=== PATIENT | female | born 1960 | race Caucasian/White ===

== ENCOUNTER → 2016-11-22 | Outpatient (CLI) | payer MEDICARE, BC ==
--- NOTE | 2016-11-22 15:43 | REPMRS ---
Patient History The patient states she had a clinical breast exam in 11/2016. Family history of endometrial cancer in mother at age 50 or over. Digital Woman Screen Mammo: November 22, 2016 - Exam #: [id number] Bilateral CC and MLO view(s) were taken. Technologist: Kell Carter, Technologist Prior study comparison: October 28, 2015, right breast digital mammo diagnostic unilateral, performed at [facility]. October 25, 2015, digital woman screen mammo performed at [facility]. August 06, 2014, digital woman screen mammo performed at [facility]. FINDINGS: There are scattered fibroglandular densities. There is a moderate amount of residual fibroglandular tissue which is fairly symmetric. There is no interval development of dominant mass, architectural distortion, or clustered microcalcification typical of malignancy. There has been no change in the appearance of the mammogram from the prior studies. ASSESSMENT: BI-RADS/ACR category 1 mammogram. Negative. Recommendation Routine screening mammogram of both breasts in 1 year (for women over age 40). This mammogram was interpreted with the aid of an FDA-approved computer-aided dectection system. Electronically Signed By: Harman Gomez MD 11/22/16 [id number]
== END ==
LOC: M WHC 14:20
PROVIDERS: ATTEND Nurse Practitioner Family
DX: Z01.419 Encounter for gynecological examination (general) (routine) without abnormal findings (principal); Z12.31 Encounter for screening mammogram for malignant neoplasm of breast; R30.0 Dysuria; Z12.12 Encounter for screening for malignant neoplasm of rectum
CPT/HCPCS: 81002; 82270; 87086; G0101; G0202

== ENCOUNTER 2016-12-17 14:30 | Outpatient (RCR) | payer MEDICARE, BC | END 2016-12-21 | LOC: M PT 14:30 | PROVIDERS: ATTEND Psychiatry & Neurology Neurology | DX: Z51.89 Encounter for other specified aftercare (principal); G35 Multiple sclerosis; R26.2 Difficulty in walking, not elsewhere classified; M62.9 Disorder of muscle, unspecified | CPT/HCPCS: 97110; 97116; 97140; 97162; G8978; G8979 ==

== ENCOUNTER 2017-01-10 12:15 | Outpatient (RCR) | payer MEDICARE, BC | END 2017-01-20 | LOC: M PT 12:15 | PROVIDERS: ATTEND Psychiatry & Neurology Neurology | DX: Z51.89 Encounter for other specified aftercare (principal); R26.89 Other abnormalities of gait and mobility; G35 Multiple sclerosis ==

== ENCOUNTER 2017-01-28 10:00 | Outpatient (RCR) | payer MEDICARE, BC | END 2017-02-20 | LOC: M PT 10:00 | PROVIDERS: ATTEND Psychiatry & Neurology Neurology | DX: Z51.89 Encounter for other specified aftercare (principal); G35 Multiple sclerosis; R26.89 Other abnormalities of gait and mobility | CPT/HCPCS: 97110; 97116; G8978; G8979; G8980 ==

== ENCOUNTER → 2017-03-19 | Outpatient (REF) | payer MEDICARE, BC ==
[2017-03-20 15:14] LABS: CALCIUM OXALATE CRYSTALS LARGE
== END ==
LOC: M LABNEURO 17:38
PROVIDERS: ATTEND Psychiatry & Neurology Neurology
DX: N39.0 Urinary tract infection, site not specified (principal)

== ENCOUNTER → 2017-05-21 | Outpatient (REF) | payer MEDICARE, BC ==
[~2017-05-21] MED LIST: CRAN125T PO; FISH1000 PO; PROZ40CA PO; TIZA4CAP3 PO
== END ==
LOC: M LAB REF 21:14
PROVIDERS: ATTEND Physician Assistant
DX: N39.0 Urinary tract infection, site not specified (principal)

== ENCOUNTER → 2017-05-23 | Outpatient (REF) | payer MEDICARE, BC ==
[2017-05-23 20:11] LABS: ALBUMIN/GLOBULIN RATIO 1.54 (1.00-1.93); ALKALINE PHOSPHATASE 90 U/L (45-117); ALT/SGPT 28 U/L (12-78); ANION GAP 6 MEQ/L (8-16); AST/SGOT 18 U/L (15-37); BILIRUBIN,TOTAL 0.4 MG/DL (0.2-1.0); BLOOD UREA NITROGEN 15 MG/DL (7-18); CALCIUM LEVEL 8.5 MG/DL (8.5-10.1); CARBON DIOXIDE LEVEL 29 MEQ/L (21-32); CHLORIDE LEVEL 105 MEQ/L (98-107); CREATININE FOR GFR 0.63 MG/DL (0.55-1.02); GLOMERULAR FILTRATION RATE > 60.0 (>51); GLUCOSE, FASTING 80 MG/DL (70-105); POTASSIUM SERUM 4.7 MEQ/L (3.5-5.1); SODIUM LEVEL 140 MEQ/L (136-145); TOTAL PROTEIN 6.6 GM/DL (6.4-8.2)
[2017-05-23 20:24] LABS: BASO # 0.1 K/mm3 (0.0-0.2); BASO % 1.2 % (0.0-1.0); EOS # 0.1 K/mm3 (0.0-0.50); EOS % 1.9 % (0.0-3.0); LARGE UNSTAINED CELL # 0.1 K/mm3 (0.0-0.4); LARGE UNSTAINED CELL % 1.8 % (0.0-4.0); LYMPH % 16.3 % (24.0-44.0); MEAN CORPUSCULAR HEMOGLOBIN 31.2 pg (27.0-33.0); MEAN CORPUSCULAR HGB CONC 32.6 g/dl (32.0-36.5); MEAN CORPUSCULAR VOLUME 95.6 fl (80.0-96.0); MONO # 0.5 K/mm3 (0.0-0.8); MONO % 9.4 % (0.0-5.0); NEUTROPHILS # 3.7 K/mm3 (1.8-7.7); NEUTROPHILS % 69.4 % (36.0-66.0); PLATELET COUNT, AUTOMATED 333 k/mm3 (150-450); RED CELL DISTRIBUTION WIDTH 12.2 % (11.5-14.5); WHITE BLOOD COUNT 5.3 K/mm3 (4.0-10.0)
[2017-06-11 00:06] LABS: JCV ANTIBODY BY INHIBITION Negative (.)
== END ==
LOC: M LABNEURO 12:00
PROVIDERS: ATTEND Psychiatry & Neurology Neurology
DX: G35 Multiple sclerosis (principal); Z51.81 Encounter for therapeutic drug level monitoring; Z79.899 Other long term (current) drug therapy

== ENCOUNTER 2017-06-12 12:42 | Outpatient (CLI) | payer MEDICARE, BC ==
[~2017-06-12] VITALS: Ht 166.4 cm; Wt 61.8 kg
[2017-06-12] MEDS ORDERED: methylPREDNISolone 1,000 MG, VIAL MATE ADAPTER 1 EACH in D5W 250 ML IV ONE ×2 (13:00→13:30)
[2017-06-12] MEDS ORDERED: CRAN125T PO (13:15)
[2017-06-12] MEDS ORDERED: PROZ40CA PO (13:15)
[2017-06-12] MEDS ORDERED: TIZA4CAP3 PO (13:15)
[2017-06-12] MEDS ORDERED: FISH1000 PO (13:15)
== END 2017-06-12 14:55 | disposition home or self-care (01) ==
LOC: M INFU 12:42
PROVIDERS: ATTEND Psychiatry & Neurology Neurology
DX: G35 Multiple sclerosis (principal); F32.9 Major depressive disorder, single episode, unspecified; F41.9 Anxiety disorder, unspecified; Z79.899 Other long term (current) drug therapy; Z88.2 Allergy status to sulfonamides
CPT/HCPCS: 96365; J2930

== ENCOUNTER 2017-06-13 13:56 | Outpatient (CLI) | payer MEDICARE, BC ==
[~2017-06-13] VITALS: Ht 166.4 cm; Wt 61.4 kg
[2017-06-13] MEDS ORDERED: methylPREDNISolone 1,000 MG, VIAL MATE ADAPTER 1 EACH in D5W 250 ML IV ONE (14:30)
== END 2017-06-13 15:30 | disposition home or self-care (01) ==
LOC: M INFU 13:56
PROVIDERS: ATTEND Psychiatry & Neurology Neurology
DX: G35 Multiple sclerosis (principal); F32.9 Major depressive disorder, single episode, unspecified; F41.9 Anxiety disorder, unspecified; Z79.899 Other long term (current) drug therapy; Z88.3 Allergy status to other anti-infective agents
CPT/HCPCS: 96365; J2930

== ENCOUNTER 2017-06-14 13:55 | Outpatient (CLI) | payer MEDICARE, BC ==
[~2017-06-14] VITALS: Ht 166.4 cm; Wt 61.8 kg
[2017-06-14] MEDS ORDERED: methylPREDNISolone 1,000 MG, VIAL MATE ADAPTER 1 EACH in D5W 250 ML IV ONE (14:00)
== END 2017-06-14 15:40 | disposition home or self-care (01) ==
LOC: M INFU 13:55
PROVIDERS: ATTEND Psychiatry & Neurology Neurology
DX: G35 Multiple sclerosis (principal); Z79.899 Other long term (current) drug therapy; Z88.2 Allergy status to sulfonamides
CPT/HCPCS: 96365; J2930

== ENCOUNTER 2017-06-15 13:51 | Outpatient (CLI) | payer MEDICARE, BC ==
[~2017-06-15] VITALS: Ht 165.1 cm; Wt 62.3 kg
[2017-06-15 14:00] VITALS: BP 118/57
[2017-06-15] MEDS ORDERED: methylPREDNISolone 1,000 MG, VIAL MATE ADAPTER 1 EACH in D5W 250 ML IV ONE (14:30)
== END 2017-06-15 17:12 | disposition home or self-care (01) ==
LOC: M OPCLI4PV 13:51 → M MSPAV 13:54 → M OPCLI4PV 17:12
PROVIDERS: ATTEND Psychiatry & Neurology Neurology
DX: G35 Multiple sclerosis (principal); Z79.899 Other long term (current) drug therapy; Z88.2 Allergy status to sulfonamides
CPT/HCPCS: 96374; J2930

== ENCOUNTER 2017-06-16 12:50 | Outpatient (CLI) | payer MEDICARE, BC ==
[~2017-06-16] VITALS: Ht 165.1 cm; Wt 67.3 kg
[2017-06-16 13:14] VITALS: BP 111/57
[2017-06-16] MEDS ORDERED: methylPREDNISolone 1,000 MG, VIAL MATE ADAPTER 1 EACH in D5W 250 ML IV ONE (13:30)
== END 2017-06-16 14:45 | disposition home or self-care (01) ==
LOC: M OPCLI4PR 12:50 → M PED 12:54 → M OPCLI4PR 14:45
PROVIDERS: ATTEND Psychiatry & Neurology Neurology
DX: G35 Multiple sclerosis (principal); Z79.899 Other long term (current) drug therapy; Z88.2 Allergy status to sulfonamides
CPT/HCPCS: 96365; J2930

== ENCOUNTER → 2017-10-16 | Outpatient (CLI) | payer MEDICARE, OTHER | LOC: M RAD 13:08 | DX: M79.605 Pain in left leg (principal) | CPT/HCPCS: 93923 ==

== ENCOUNTER 2017-10-20 21:14 | Inpatient (IN) | payer MEDICARE, OTHER ==
[2017-10-20] MEDS: NS 1,000 ML IV (22:09)
[2017-10-20 22:19] LABS: BASO # 0.1 10^3/uL (0.0-0.2); EOS # 0.1 10^3/uL (0.0-0.50); HEMATOCRIT 39.5 % (36.0-47.0); HEMOGLOBIN 13.5 g/dl (12.0-16.0); IMMATURE GRANULOCYTE % 0.2 % (0-0); LYMPH # 0.5 10^3/uL (1.5-4.5); LYMPH % 9.5 % (24.0-44.0); MEAN CORPUSCULAR HEMOGLOBIN 31.4 pg (27.0-33.0); MEAN CORPUSCULAR HGB CONC 34.2 g/dl (32.0-36.5); MEAN CORPUSCULAR VOLUME 91.9 fl (80.0-96.0); MONO # 1.1 10^3/uL (0.0-0.8); MONO % 20.9 % (0.0-5.0); NEUTROPHILS # 3.4 10^3/uL (1.8-7.7); NEUTROPHILS % 67.4 % (36.0-66.0); PLATELET COUNT, AUTOMATED 272 10^3/uL (150-450); RED CELL DISTRIBUTION WIDTH 11.9 % (11.5-14.5)
[2017-10-20 22:34] LABS: ANION GAP 7 MEQ/L (8-16); BLOOD UREA NITROGEN 14 MG/DL (7-18); CALCIUM LEVEL 9.2 MG/DL (8.5-10.1); CARBON DIOXIDE LEVEL 29 MEQ/L (21-32); CHLORIDE LEVEL 103 MEQ/L (98-107); CREATININE FOR GFR 0.67 MG/DL (0.55-1.02); GLOMERULAR FILTRATION RATE > 60.0 (>51); GLUCOSE, FASTING 88 MG/DL (70-100); POTASSIUM SERUM 4.1 MEQ/L (3.5-5.1); SODIUM LEVEL 139 MEQ/L (136-145)
[2017-10-20 23:02] LABS: INFLUENZA A AMPLIFICATION NEGATIVE (NEGATIVE); INFLUENZA B AMPLIFICATION NEGATIVE (NEGATIVE)
[2017-10-20] MEDS ORDERED: ONDANSETRON 4MG/2ML VIAL (J2405) IV (23:30)
[2017-10-20 23:33] LABS: APPEARANCE, URINE CLEAR (CLEAR); BACTERIA, URINE AUTO NEGATIVE (NEGATIVE); BILIRUBIN, URINE AUTO NEGATIVE (NEGATIVE); BLOOD, URINE BLOOD 1+ (NEGATIVE); COLOR, URINE AMBER (YELLOW); GLUCOSE, URINE (UA) AUTO NEGATIVE (NEGATIVE); KETONE, URINE AUTO TRACE mg/dL (NEGATIVE); LEUKOCYTE ESTERASE, URINE AUTO NEGATIVE (NEGATIVE); NITRITE, URINE AUTO POSITIVE (NEGATIVE); PROTEIN, URINE AUTO NEGATIVE (NEGATIVE); RBC, URINE AUTO 3 /HPF (0-3); SPECIFIC GRAVITY URINE AUTO 1.005 (1.002-1.035); SQUAMOUS EPITHELIAL CELL UR AU 0 /HPF (0-6); WBC, URINE AUTO 1 /HPF (0-3)
[2017-10-21] MEDS: methylPREDNISolone 1,000 MG, VIAL MATE ADAPTER 1 EACH in D5W 250 ML IV ×2 (00:34→20:09)
[2017-10-21] MEDS: ACETAMINOPHEN TAB 650MG DOSE (2X325MG) PO ×2 (00:37→08:56)
[2017-10-21] MEDS: AUGMENTIN 875 MG TAB PO ×3 (00:53→20:09)
[2017-10-21] MEDS: NS 1,000 ML IV ×2 (02:12→03:14)
[2017-10-21 06:06] LABS: BASO % 0.7 % (0.0-1.0); HEMATOCRIT 36.5 % (36.0-47.0); HEMOGLOBIN 12.4 g/dl (12.0-16.0); IMMATURE GRANULOCYTE % 0.2 % (0-0); LYMPH # 0.6 10^3/uL (1.5-4.5); LYMPH % 13.3 % (24.0-44.0); MEAN CORPUSCULAR VOLUME 91.3 fl (80.0-96.0); MONO # 0.2 10^3/uL (0.0-0.8); MONO % 5.8 % (0.0-5.0); NEUTROPHILS # 3.3 10^3/uL (1.8-7.7); PLATELET COUNT, AUTOMATED 249 10^3/uL (150-450); RED CELL DISTRIBUTION WIDTH 11.9 % (11.5-14.5); WHITE BLOOD COUNT 4.1 10^3/uL (4.0-10.0)
[2017-10-21 06:36] LABS: ANION GAP 8 MEQ/L (8-16); BLOOD UREA NITROGEN 11 MG/DL (7-18); CALCIUM LEVEL 8.2 MG/DL (8.5-10.1); CARBON DIOXIDE LEVEL 23 MEQ/L (21-32); CHLORIDE LEVEL 111 MEQ/L (98-107); CREATININE FOR GFR 0.51 MG/DL (0.55-1.02); GLOMERULAR FILTRATION RATE > 60.0 (>51); GLUCOSE, FASTING 150 MG/DL (70-100); POTASSIUM SERUM 3.8 MEQ/L (3.5-5.1); SODIUM LEVEL 142 MEQ/L (136-145)
[2017-10-21] MEDS: OMEGA-3 1050MG CAPSULE PO (08:54)
[2017-10-21] MEDS: PARoxetine 20 MG TAB PO (08:54)
[2017-10-21] MEDS: tiZANidine 4 MG TAB PO ×3 (08:54→20:09)
[2017-10-21] MEDS: ENOXAPARIN 40 MG/0.4 ML SYRINGE (J1650) SC (08:54)
[2017-10-21] MEDS: VITAMIN D 1,000 INTERNATIONAL UNITS TABLET PO (08:54)
[2017-10-21] MEDS ORDERED: PROHANCE 279.3MG/ML 15ML VIAL (A9576) As Ordered (18:08)
[2017-10-22 06:17] LABS: HEMATOCRIT 35.7 % (36.0-47.0); HEMOGLOBIN 12.3 g/dl (12.0-16.0); IMMATURE GRANULOCYTE % 0.4 % (0-0); LYMPH # 0.6 10^3/uL (1.5-4.5); LYMPH % 8.8 % (24.0-44.0); MEAN CORPUSCULAR HEMOGLOBIN 30.9 pg (27.0-33.0); MEAN CORPUSCULAR HGB CONC 34.5 g/dl (32.0-36.5); MEAN CORPUSCULAR VOLUME 89.7 fl (80.0-96.0); MONO # 0.2 10^3/uL (0.0-0.8); NEUTROPHILS # 6.4 10^3/uL (1.8-7.7); NEUTROPHILS % 87.8 % (36.0-66.0); PLATELET COUNT, AUTOMATED 272 10^3/uL (150-450); RED BLOOD COUNT 3.98 10^6/uL (4.00-5.40); RED CELL DISTRIBUTION WIDTH 11.9 % (11.5-14.5); WHITE BLOOD COUNT 7.3 10^3/uL (4.0-10.0)
[2017-10-22 06:26] LABS: ANION GAP 8 MEQ/L (8-16); BLOOD UREA NITROGEN 9 MG/DL (7-18); CALCIUM LEVEL 8.8 MG/DL (8.5-10.1); CARBON DIOXIDE LEVEL 25 MEQ/L (21-32); CHLORIDE LEVEL 108 MEQ/L (98-107); CREATININE FOR GFR 0.52 MG/DL (0.55-1.30); GLOMERULAR FILTRATION RATE > 60.0 (>51); GLUCOSE, FASTING 147 MG/DL (70-100); POTASSIUM SERUM 3.7 MEQ/L (3.5-5.1); SODIUM LEVEL 141 MEQ/L (136-145)
[2017-10-22] MEDS: ENOXAPARIN 40 MG/0.4 ML SYRINGE (J1650) SC (08:50)
[2017-10-22] MEDS: VITAMIN D 1,000 INTERNATIONAL UNITS TABLET PO (08:50)
[2017-10-22] MEDS: OMEGA-3 1050MG CAPSULE PO (08:50)
[2017-10-22] MEDS: ACETAMINOPHEN TAB 650MG DOSE (2X325MG) PO ×2 (08:50→22:49)
[2017-10-22] MEDS: PARoxetine 20 MG TAB PO (08:50)
[2017-10-22] MEDS: tiZANidine 4 MG TAB PO ×3 (08:50→21:31)
[2017-10-22] MEDS: AUGMENTIN 875 MG TAB PO ×2 (08:51→21:31)
[2017-10-22] MEDS: TECFIDERA 240 MG PO (21:00)
[2017-10-22] MEDS: methylPREDNISolone 1,000 MG, VIAL MATE ADAPTER 1 EACH in D5W 250 ML IV (21:31)
[2017-10-23 06:08] LABS: HEMATOCRIT 35.6 % (36.0-47.0); HEMOGLOBIN 12.2 g/dl (12.0-16.0); IMMATURE GRANULOCYTE % 0.4 % (0-0); LYMPH # 0.6 10^3/uL (1.5-4.5); LYMPH % 8.5 % (24.0-44.0); MEAN CORPUSCULAR HEMOGLOBIN 31.4 pg (27.0-33.0); MEAN CORPUSCULAR HGB CONC 34.3 g/dl (32.0-36.5); MEAN CORPUSCULAR VOLUME 91.5 fl (80.0-96.0); MONO # 0.2 10^3/uL (0.0-0.8); MONO % 2.1 % (0.0-5.0); NEUTROPHILS # 6.4 10^3/uL (1.8-7.7); PLATELET COUNT, AUTOMATED 236 10^3/uL (150-450); RED BLOOD COUNT 3.89 10^6/uL (4.00-5.40); RED CELL DISTRIBUTION WIDTH 12.1 % (11.5-14.5); WHITE BLOOD COUNT 7.2 10^3/uL (4.0-10.0)
[2017-10-23 06:28] LABS: ANION GAP 9 MEQ/L (8-16); BLOOD UREA NITROGEN 13 MG/DL (7-18); CARBON DIOXIDE LEVEL 26 MEQ/L (21-32); CHLORIDE LEVEL 103 MEQ/L (98-107); CREATININE FOR GFR 0.58 MG/DL (0.55-1.30); GLOMERULAR FILTRATION RATE > 60.0 (>51); GLUCOSE, FASTING 142 MG/DL (70-100); POTASSIUM SERUM 3.8 MEQ/L (3.5-5.1); SODIUM LEVEL 138 MEQ/L (136-145)
[2017-10-23] MEDS: AUGMENTIN 875 MG TAB PO ×2 (09:38→20:40)
[2017-10-23] MEDS: tiZANidine 4 MG TAB PO ×3 (09:39→20:40)
[2017-10-23] MEDS: ENOXAPARIN 40 MG/0.4 ML SYRINGE (J1650) SC (09:39)
[2017-10-23] MEDS: TECFIDERA 240 MG PO ×2 (09:39→20:39)
[2017-10-23] MEDS: PARoxetine 20 MG TAB PO (09:39)
[2017-10-23] MEDS: OMEGA-3 1050MG CAPSULE PO (09:39)
[2017-10-23] MEDS: VITAMIN D 1,000 INTERNATIONAL UNITS TABLET PO (09:39)
[2017-10-23] MEDS: ACETAMINOPHEN TAB 650MG DOSE (2X325MG) PO ×2 (11:57→20:40)
[2017-10-23] MEDS: methylPREDNISolone 1,000 MG, VIAL MATE ADAPTER 1 EACH in D5W 250 ML IV (20:39)
[2017-10-24 05:57] LABS: HEMATOCRIT 35.6 % (36.0-47.0); HEMOGLOBIN 12.5 g/dl (12.0-16.0); IMMATURE GRANULOCYTE % 0.5 % (0-0); LYMPH # 0.6 10^3/uL (1.5-4.5); LYMPH % 9.1 % (24.0-44.0); MEAN CORPUSCULAR HEMOGLOBIN 31.6 pg (27.0-33.0); MEAN CORPUSCULAR HGB CONC 35.1 g/dl (32.0-36.5); MEAN CORPUSCULAR VOLUME 89.9 fl (80.0-96.0); MONO # 0.1 10^3/uL (0.0-0.8); MONO % 2.2 % (0.0-5.0); NEUTROPHILS # 5.5 10^3/uL (1.8-7.7); NEUTROPHILS % 88.2 % (36.0-66.0); PLATELET COUNT, AUTOMATED 266 10^3/uL (150-450); RED BLOOD COUNT 3.96 10^6/uL (4.00-5.40); WHITE BLOOD COUNT 6.3 10^3/uL (4.0-10.0)
[2017-10-24 06:20] LABS: ANION GAP 11 MEQ/L (8-16); BLOOD UREA NITROGEN 12 MG/DL (7-18); CALCIUM LEVEL 8.8 MG/DL (8.5-10.1); CARBON DIOXIDE LEVEL 25 MEQ/L (21-32); CHLORIDE LEVEL 100 MEQ/L (98-107); CREATININE FOR GFR 0.54 MG/DL (0.55-1.30); GLOMERULAR FILTRATION RATE > 60.0 (>51); GLUCOSE, FASTING 142 MG/DL (70-100); POTASSIUM SERUM 3.8 MEQ/L (3.5-5.1); SODIUM LEVEL 136 MEQ/L (136-145)
[2017-10-24] MEDS: ENOXAPARIN 40 MG/0.4 ML SYRINGE (J1650) SC (09:33)
[2017-10-24] MEDS: OMEGA-3 1050MG CAPSULE PO (09:33)
[2017-10-24] MEDS: ACETAMINOPHEN TAB 650MG DOSE (2X325MG) PO ×2 (09:33→21:25)
[2017-10-24] MEDS: TECFIDERA 240 MG PO ×2 (09:34→21:00)
[2017-10-24] MEDS: tiZANidine 4 MG TAB PO ×3 (09:34→21:25)
[2017-10-24] MEDS: VITAMIN D 1,000 INTERNATIONAL UNITS TABLET PO (09:34)
[2017-10-24] MEDS: AUGMENTIN 875 MG TAB PO ×2 (09:34→21:24)
[2017-10-24] MEDS: PARoxetine 20 MG TAB PO (09:34)
[2017-10-24] MEDS: methylPREDNISolone 1,000 MG, VIAL MATE ADAPTER 1 EACH in D5W 250 ML IV (21:24)
[2017-10-25 06:26] LABS: BASO % 0.2 % (0.0-1.0); HEMATOCRIT 36.8 % (36.0-47.0); HEMOGLOBIN 12.6 g/dl (12.0-16.0); IMMATURE GRANULOCYTE # 0.1 10^3/uL (0-0); IMMATURE GRANULOCYTE % 0.8 % (0-0); LYMPH # 0.5 10^3/uL (1.5-4.5); LYMPH % 7.7 % (24.0-44.0); MEAN CORPUSCULAR HGB CONC 34.2 g/dl (32.0-36.5); MEAN CORPUSCULAR VOLUME 90.6 fl (80.0-96.0); MONO # 0.2 10^3/uL (0.0-0.8); MONO % 2.5 % (0.0-5.0); NEUTROPHILS # 5.8 10^3/uL (1.8-7.7); NEUTROPHILS % 88.8 % (36.0-66.0); PLATELET COUNT, AUTOMATED 265 10^3/uL (150-450); RED BLOOD COUNT 4.06 10^6/uL (4.00-5.40); WHITE BLOOD COUNT 6.5 10^3/uL (4.0-10.0)
[2017-10-25 06:42] LABS: ANION GAP 10 MEQ/L (8-16); BLOOD UREA NITROGEN 14 MG/DL (7-18); CALCIUM LEVEL 8.3 MG/DL (8.5-10.1); CARBON DIOXIDE LEVEL 24 MEQ/L (21-32); CHLORIDE LEVEL 102 MEQ/L (98-107); CREATININE FOR GFR 0.65 MG/DL (0.55-1.30); GLOMERULAR FILTRATION RATE > 60.0 (>51); GLUCOSE, FASTING 152 MG/DL (70-100); POTASSIUM SERUM 3.8 MEQ/L (3.5-5.1); SODIUM LEVEL 136 MEQ/L (136-145)
[2017-10-25] MEDS: VITAMIN D 1,000 INTERNATIONAL UNITS TABLET PO (08:27)
[2017-10-25] MEDS: PARoxetine 20 MG TAB PO (08:27)
[2017-10-25] MEDS: tiZANidine 4 MG TAB PO (08:27)
[2017-10-25] MEDS: TECFIDERA 240 MG PO (08:27)
[2017-10-25] MEDS: OMEGA-3 1050MG CAPSULE PO (08:27)
[2017-10-25] MEDS: AUGMENTIN 875 MG TAB PO (08:27)
[2017-10-25] MEDS: predniSONE 20 MG TAB PO (08:28)
[2017-10-25] MEDS: ENOXAPARIN 40 MG/0.4 ML SYRINGE (J1650) SC (08:28)
== END 2017-10-25 12:18 | disposition home health service (06) | DRG 60 ==
LOC: M MSPAV 10-21 00:07 → M ED 21:14 → M ED INP 23:20
DX: G35 Multiple sclerosis (principal); J01.90 Acute sinusitis, unspecified; E55.9 Vitamin D deficiency, unspecified; F32.9 Major depressive disorder, single episode, unspecified; N31.9 Neuromuscular dysfunction of bladder, unspecified; Z79.899 Other long term (current) drug therapy; Z88.2 Allergy status to sulfonamides

== ENCOUNTER → 2017-11-08 | Outpatient (REF) | payer MEDICARE, OTHER ==
[2017-11-11 11:56] LABS: HEPATITIS B SURFACE ANTIGEN NEGATIVE (NEGATIVE)
[2017-11-14 00:06] LABS: HERPES ZOSTER, VARICELLA IgG 2553 index (Immune >165)
[2017-11-14 00:06] LABS: JC VIRUS DNA PCR WHOLE BLOOD Negative (Negative)
== END ==
LOC: M LAB REF 16:33
DX: G35 Multiple sclerosis (principal); Z51.81 Encounter for therapeutic drug level monitoring
CPT/HCPCS: 87340

== ENCOUNTER → 2018-06-27 | Outpatient (REF) | payer MEDICARE, OTHER ==
[2018-06-27 18:35] LABS: APPEARANCE, URINE CLEAR (CLEAR); BACTERIA, URINE AUTO 1+ (NEGATIVE); BILIRUBIN, URINE AUTO NEGATIVE (NEGATIVE); BLOOD, URINE BLOOD NEGATIVE (NEGATIVE); COLOR, URINE STRAW (YELLOW); GLUCOSE, URINE (UA) AUTO NEGATIVE (NEGATIVE); KETONE, URINE AUTO NEGATIVE (NEGATIVE); LEUKOCYTE ESTERASE, URINE AUTO NEGATIVE (NEGATIVE); MUCUS, URINE SMALL (NEGATIVE); NITRITE, URINE AUTO NEGATIVE (NEGATIVE); PROTEIN, URINE AUTO NEGATIVE (NEGATIVE); RBC, URINE AUTO 0 /HPF (0-3); SPECIFIC GRAVITY URINE AUTO 1.003 (1.002-1.035); SQUAMOUS EPITHELIAL CELL UR AU 1 /HPF (0-6); UROBILINOGEN, URINE AUTO 0.2 mg/dL (0.0-2.0); WBC, URINE AUTO 1 /HPF (0-3)
== END ==
LOC: M LAB REF 17:09
DX: N39.0 Urinary tract infection, site not specified (principal)
CPT/HCPCS: 81001

== ENCOUNTER 2018-08-27 16:23 | Emergency (ER) | payer MEDICARE, OTHER ==
[2018-08-27] MEDS: NS 1,000 ML IV (17:40)
[2018-08-27 17:49] LABS: BASO % 0.3 % (0.0-1.0); EOS # 0.1 10^3/uL (0.0-0.50); EOS % 0.9 % (0.0-3.0); HEMOGLOBIN 13.1 g/dl (12.0-15.5); IMMATURE GRANULOCYTE % 0.3 % (0-3.0); MEAN CORPUSCULAR HEMOGLOBIN 31.8 pg (27.0-33.0); MEAN CORPUSCULAR HGB CONC 34.5 g/dl (32.0-36.5); MEAN CORPUSCULAR VOLUME 92.2 fl (80.0-96.0); MONO # 0.6 10^3/uL (0.0-0.8); MONO % 5.3 % (0.0-5.0); NEUTROPHILS # 10.7 10^3/uL (1.8-7.7); NEUTROPHILS % 91.2 % (36.0-66.0); PLATELET COUNT, AUTOMATED 288 10^3/uL (150-450); RED BLOOD COUNT 4.12 10^6/uL (4.00-5.40); RED CELL DISTRIBUTION WIDTH 11.8 % (11.5-14.5); WHITE BLOOD COUNT 11.7 10^3/uL (4.0-10.0)
[2018-08-27 17:55] LABS: LYMPH # 0.2 10^3/uL (1.5-4.5); POSITIVE DIFF POS FLAG
[2018-08-27 18:10] LABS: ANION GAP 7 MEQ/L (8-16); BLOOD UREA NITROGEN 21 MG/DL (7-18); CARBON DIOXIDE LEVEL 28 MEQ/L (21-32); CHLORIDE LEVEL 102 MEQ/L (98-107); CPK CREATINE PHOSPHOKINASE 176 U/L (26-192); CREATININE FOR GFR 0.54 MG/DL (0.55-1.30); GLOMERULAR FILTRATION RATE > 60.0 (>51); GLUCOSE, FASTING 97 MG/DL (70-100); POTASSIUM SERUM 4.6 MEQ/L (3.5-5.1); SODIUM LEVEL 137 MEQ/L (136-145)
[2018-08-27 19:16] LABS: GLUCOSE, URINE (UA) MANUAL NEGATIVE (NEGATIVE); KETONE, URINE MANUAL 1+ mg/dL (NEGATIVE); PROTEIN, URINE MANUAL REFLEX NEGATIVE (NEGATIVE)
[2018-08-27 19:17] LABS: BILIRUBIN, URINE MANUAL NEGATIVE (NEGATIVE); BLOOD URINE MANUAL RFX NEGATIVE (NEGATIVE); MICROSCOPIC INDICATED? RFX YES (NO); NITRITE, URINE MANUAL RFX NEGATIVE (NEGATIVE); UROBILINOGEN, URINE MANUAL NORMAL (NORMAL)
[2018-08-27 19:18] LABS: BACTERIA, URINE LARGE AMOUNT; HYALINE CAST, URINE NONE SEEN /lpf (0-1); SQUAMOUS EPITHELIAL CELL URINE SMALL AMOUNT /hpf (SMALL AMT)
[2018-08-27 19:19] LABS: MICROSCOPIC EXAM UNSPUN
[2018-08-27] MEDS: ACETAMINOPHEN TAB 650MG DOSE (2X325MG) PO (20:48)
[2018-08-27] MEDS: NITROFURANTOIN (MACROBID) 100 MG CAP PO (20:48)
== END 2018-08-27 20:53 | disposition home or self-care (01) ==
LOC: M ED 16:23
DX: N39.0 Urinary tract infection, site not specified (principal); S40.021A Contusion of right upper arm, initial encounter; S40.811A Abrasion of right upper arm, initial encounter; W18.39XA Other fall on same level, initial encounter; Y92.018 Other place in single-family (private) house as the place of occurrence of the external cause; G35 Multiple sclerosis; N80.9 Endometriosis, unspecified; Z79.899 Other long term (current) drug therapy
CPT/HCPCS: 73060

== ENCOUNTER → 2018-10-15 | Outpatient (REF) | payer MEDICARE, OTHER ==
[~2018-10-15] MED LIST changes: +AMOX/K PO; +AMOX500C PO; +AMOX500T2 PO; +AMPICILLIN 250 MG PO; +ASPI81TAEC PO; +ATOR1TAB21 PO; +BACL10TA2 PO; +MACR100C43 PO; +NAPR-885 PO; +PARO40TA2 PO; +PRED10TA2 PO; +TECF240C PO; +TIZA-208 PO; +TIZA4CAP PO; -TIZA4CAP3 PO; +VITA100066 PO; +[UNRECOGNIZED DRUG - CODE] PO; +[UNRECOGNIZED DRUG - CODE] PO; +ampicillin PO
== END ==
LOC: M LAB REF 13:33
PROVIDERS: ATTEND Internal Medicine
DX: R31.9 Hematuria, unspecified (principal)

== ENCOUNTER 2018-10-27 18:13 | Inpatient (IN) | payer MEDICARE, OTHER ==
[~2018-10-27] VITALS: Ht 165.1 cm; Wt 61.0 kg
[~2018-10-27 18:13] MED LIST changes: -AMOX500C PO; -ASPI81TAEC PO; -ATOR1TAB21 PO; -BACL10TA2 PO; -NAPR-885 PO; -[UNRECOGNIZED DRUG - CODE] PO
[2018-10-27] MEDS ORDERED: dexameTHASONE 20 MG/5 ML VIAL (J1100) IV ONE (20:45)
[2018-10-27] MEDS ORDERED: IBUPROFEN 600 MG TAB PO ONE (21:45)
[2018-10-27 22:14] LABS: BASO # 0.1 10^3/uL (0.0-0.2); BASO % 0.7 % (0.0-1.0); EOS # 0.1 10^3/uL (0.0-0.50); EOS % 1.5 % (0.0-3.0); HEMOGLOBIN 13.5 g/dl (12.0-15.5); LYMPH # 0.4 10^3/uL (1.5-4.5); LYMPH % 4.9 % (24.0-44.0); MEAN CORPUSCULAR HEMOGLOBIN 31.6 pg (27.0-33.0); MEAN CORPUSCULAR HGB CONC 34.6 g/dl (32.0-36.5); MEAN CORPUSCULAR VOLUME 91.3 fl (80.0-96.0); MONO # 0.8 10^3/uL (0.0-0.8); MONO % 10.5 % (0.0-5.0); NEUTROPHILS # 6.1 10^3/uL (1.8-7.7); NEUTROPHILS % 82.3 % (36.0-66.0); PLATELET COUNT, AUTOMATED 295 10^3/uL (150-450); RED BLOOD COUNT 4.27 10^6/uL (4.00-5.40); WHITE BLOOD COUNT 7.4 10^3/uL (4.0-10.0)
[2018-10-27] MEDS ORDERED: AMOX500C PO (22:25)
[2018-10-27] MEDS ORDERED: FISH1000 PO (22:25)
[2018-10-27] MEDS ORDERED: [UNRECOGNIZED DRUG - CODE] PO (22:26)
[2018-10-27] MEDS ORDERED: NAPR-885 PO (22:26)
[2018-10-27 22:27] LABS: BLOOD UREA NITROGEN 9 MG/DL (7-18); CALCIUM LEVEL 8.7 MG/DL (8.5-10.1); CARBON DIOXIDE LEVEL 24 MEQ/L (21-32); CHLORIDE LEVEL 104 MEQ/L (98-107); CPK CREATINE PHOSPHOKINASE 48 U/L (26-192); CREATININE FOR GFR 0.44 MG/DL (0.55-1.30); GLOMERULAR FILTRATION RATE > 60.0 (>51); GLUCOSE, FASTING 92 MG/DL (70-100); MAGNESIUM LEVEL 1.9 MG/DL (1.8-2.4); SODIUM LEVEL 139 MEQ/L (136-145)
[2018-10-28] MEDS ORDERED: ONDANSETRON 4MG/2ML VIAL (J2405) IV PRN (03:45)
[2018-10-28] MEDS ORDERED: DEXTROSE 50% 50 ML SYRINGE IV PRN (04:00)
[2018-10-28] MEDS ORDERED: GLUCOSE 4 GM CHEW TABLET PO PRN (04:00)
[2018-10-28] MEDS ORDERED: GLUCAGON FOR INJ 1 MG VIAL (J1610) SC PRN (04:00)
[2018-10-28 05:26] VITALS: BP 115/57
[2018-10-28] MEDS: HEPARIN SOD (PORCINE) 5000 UNITS/ML VIAL SC SCH ×3 (05:37→21:27)
[2018-10-28] MEDS: HumaLOG INSULIN (NovoLOG) PER UNIT SC SCH ×3 (05:37→18:58)
[2018-10-28] MEDS: AMOXICILLIN 500 MG CAP PO SCH ×3 (05:37→21:26)
[2018-10-28] MEDS: ACETAMINOPHEN TAB 650MG DOSE (2X325MG) PO PRN ×2 (06:21→13:02)
[2018-10-28 06:37] LABS: APPEARANCE, URINE CLEAR (CLEAR); BACTERIA, URINE AUTO 1+ (NEGATIVE); BILIRUBIN, URINE AUTO NEGATIVE (NEGATIVE); BLOOD, URINE BLOOD 1+ (NEGATIVE); COLOR, URINE YELLOW (YELLOW); GLUCOSE, URINE (UA) AUTO NEGATIVE (NEGATIVE); KETONE, URINE AUTO 2+ mg/dL (NEGATIVE); LEUKOCYTE ESTERASE, URINE AUTO NEGATIVE (NEGATIVE); MUCUS, URINE SMALL (NEGATIVE); NITRITE, URINE AUTO NEGATIVE (NEGATIVE); PROTEIN, URINE AUTO NEGATIVE (NEGATIVE); RBC, URINE AUTO 6 /HPF (0-3); SPECIFIC GRAVITY URINE AUTO 1.014 (1.002-1.035); SQUAMOUS EPITHELIAL CELL UR AU 2 /HPF (0-6); UROBILINOGEN, URINE AUTO 0.2 mg/dL (0.0-2.0); WBC, URINE AUTO 2 /HPF (0-3)
--- NOTE | 2018-10-28 06:57 | HPE ---
DATE OF ADMISSION: 10/28/2018 CHIEF COMPLAINT: Worsening bilateral lower extremity numbness and paresthesias for the past 24 hours, left worse than right. HISTORY OF PRESENT ILLNESS: The patient is a 58-year-old female with multiple sclerosis (MS) diagnosed in 1998, neurogenic bladder, recurrent urinary tract infections, depression and muscle spasms who presented to the emergency room with a one day history of bilateral lower extremity weakness, worse on the left, numbness and paresthesias. She states that this started yesterday after she had a dental extraction and was placed on amoxicillin for infection. She denies any cough, chest pain, shortness of breath, abdominal pain, constipation, diarrhea or urinary symptoms. She does endorse a mild headache which she states has improved. PAST MEDICAL HISTORY: See history of present illness. PAST SURGICAL HISTORY: section. Hysterectomy. HOME MEDICATIONS: - amoxicillin for 10 days - vitamin D - Paxil - Tecfidera - tizanidine She follows with Dr. Romero. ALLERGIES: 1. SULFA antibiotics. SOCIAL HISTORY: Denies tobacco, alcohol or illicit drug use. FAMILY HISTORY: Noncontributory. REVIEW OF SYSTEMS: A 12 point review of systems was completed, all of which were negative except those listed in the history of present illness. VITAL SIGNS ON ADMISSION: Temperature 99.3, pulse of 97, respirations are 17, satting at 94% on room air, blood pressure 124/74. PHYSICAL EXAMINATION: GENERAL: She is well nourished, in no apparent distress. HEAD: Normocephalic, atraumatic. EYES: Extraocular movements are intact. Pupils equal, round, reactive to light. NECK: Supple. No jugular venous pressure (JVP). LUNGS: Clear to auscultation bilaterally. No crackles, wheezes, rales or rhonchi. CARDIOVASCULAR: Regular rate and rhythm. Normal S1 and S2. No murmurs, gallops, or rubs. ABDOMEN: Soft, nontender, nondistended. Positive bowel sounds. No rebound or guarding. EXTREMITIES: No pitting edema or calf tenderness. SKIN: Intact. No rashes, lesions or breakdowns. NEUROLOGICAL EXAM: Alert and oriented times three. Bilateral lower extremity weakness noted, left worse than right. Power diminished 3-4/5. Sensation appears to be intact to fine touch. LABS AND IMAGING COMPLETED IN THE EMERGENCY ROOM: White count of 7, hemoglobin and hematocrit of 13/39, platelet count of 295. Chemistry shows a BUN and creatinine of 9/0.44. No imaging was compelted. ASSESSMENT/PLAN: MS flare possibly secondary to dental infection, extraction. Will rule out an infectious source such as urinary tract infection. Will place the patient on Solu-Medrol 1 gram daily, stop after five days and then place on a by mouth taper once this is done. Neurology consult in the a.m. Will get MRI of the brain, MR of the lumbar spine. Will monitor for signs of steroid induced psychosis, steroid induced renal dysfunction while on high dose steroids. Insulin sliding scale while on high dose steroids. For the rest of her chronic medical conditions, will continue her vitamin D, Paxil, Tecfidera which is she is going to bring in. The patient needs to take her own medications. For spasms continue tizanidine. Supportive deep vein thrombosis (DVT) prophylaxis. Heparin subcu. Gastrointestinal (GI) prophylaxis. Protonix while on high dose steroids. Diet regular.
[2018-10-28 08:00] VITALS: BP 130/62
[2018-10-28] MEDS ORDERED: methylPREDNISolone 1,000 MG, VIAL MATE ADAPTER 1 EACH in D5W 250 ML IV SCH (09:00)
[2018-10-28] MEDS ORDERED: methylPREDNISolone INJ 125 MG/2 ML VIAL (J2930) IV SCH (09:00)
[2018-10-28] MEDS: tiZANidine 4 MG TAB PO PRN ×2 (09:19→21:30)
[2018-10-28] MEDS: VITAMIN D 1,000 INTERNATIONAL UNITS TABLET PO SCH (09:19)
[2018-10-28] MEDS: PANTOPRAZOLE 40MG TAB (PROTONIX) PO SCH (09:19)
[2018-10-28] MEDS ORDERED: PROHANCE 279.3MG/ML 15ML VIAL (A9576) As Ordered ONE (09:46)
--- NOTE | 2018-10-28 11:15 | REP ---
MR BRAIN WITHOUT AND WITH CONTRAST: HISTORY: Multiple sclerosis. CONTRAST: ProHance 12 mL. COMPARISON: 10/21/2017. Multiple areas of increased signal intensity on T2-weighted images are present in the periventricular and subcortical white matter. Additional areas of increased signal intensity are present in the corpus callosum , left middle cerebellar peduncle and medulla. The lesion seen in the left side of the amaury in the previous examination is not seen in the present examination. The remaining areas of abnormal signal intensity are unchanged. There are no new areas of abnormal signal intensity. There is no intraparenchymal hemorrhage, infarct, or midline shift. There is no abnormal enhancement. The ventricular system and cortical sulci are dilated consistent with mild volume loss. There is no extracerebral collection. A 4 mm mass is present in the pituitary gland. Mucosal thickening is present in the left maxillary sinus. IMPRESSION: 1. The above findings are consistent with multiple sclerosis. A previously seen lesion in the left amaury is not seen in the present examination. 2. There is a 4 mm mass in the pituitary gland. MRI of the pituitary gland without and with contrast is recommended for further evaluation. Electronically Signed by Luis Manuel Parham MD 10/28/2018 11:24 A
[2018-10-28] MEDS: methylPREDNISolone 1,000 MG, VIAL MATE ADAPTER 1 EACH in D5W 250 ML IV SCH (11:20)
[2018-10-28 12:00] VITALS: BP 140/52
--- NOTE | 2018-10-28 12:20 | REP ---
MR LUMBAR SPINE WITHOUT CONTRAST: HISTORY: Multiple sclerosis. Decreased signal intensity on T2-weighted images is present in the lumbar intervertebral discs. The L4-5 and L5-S1 intervertebral discs are decreased in height. These findings are consistent with disc degeneration. A small left paracentral disc protrusion is present at the L1-2 level. There is minimal compression of the thecal sac. The L1 nerves exit the neural foramina without compression. A diffuse disc bulge is present at the L2-3 level. There is minimal compression of the thecal sac. The L2 nerves exit the neural foramina without compression. A diffuse disc bulge and small right paracentral disc protrusion are present at the L3-4 level. There is minimal compression of the thecal sac. There is hypertrophy of the posterior articulating facets. The L3 nerves exit the neural foramina without compression. A diffuse disc bulge is present at the L4-5 level. There is minimal compression of the thecal sac. There is hypertrophy of the posterior articulating facets. The L4 nerves exit the neural foramina without compression. A diffuse disc bulge is present at the L5-S1 level. This abuts the thecal sac. There is hypertrophy of the posterior articulating facets. The L5 nerves exit the neural foramina without compression. The conus medullaris is normal in appearance terminating at the level of the L1-2 intervertebral disc. A hemangioma is present in the L1 vertebral body. Normal signal intensity is present in the remaining lumbar vertebral bodies. IMPRESSION: 1. Small left paracentral disc protrusion at the L1-2 level with minimal thecal sac compression. 2. Diffuse disc bulges at the L2-3 and L4-5 levels with minimal thecal sac compression. 3. Diffuse disc bulge and small right paracentral disc protrusion at the L3-4 level with minimal thecal sac compression. 4. Diffuse disc bulge at the L5-S1 level. This abuts the thecal sac. Electronically Signed by Luis Manuel Parham MD 10/28/2018 12:23 P
[2018-10-28 14:00] VITALS: BP 140/52
--- NOTE | 2018-10-28 16:25 | REP ---
Bilateral lower extremity arterial Doppler ultrasound: History: Rule out peripheral vascular disease. Findings: Ankle brachial indices are normal at 1.2 on the right and 1.1 on the left. Minimal atherosclerotic disease is seen. Mild stenosis is suspected in the proximal anterior tibial artery on the left. Otherwise normal waveforms and velocities. Right lower extremity arterial Doppler velocity chart: Right CF A 129 cm/S Profunda 78 cm/S Proximal SFA 145 cm/S Mid SFA 166 cm/S Distal SFA 123 cm/S Popliteal 111 cm/S Proximal AT A 71 cm/S Tibioperoneal trunk 142 cm/S Proximal BINDERY SUPERVISOR 116 cm/S Distal BINDERY SUPERVISOR 97 cm/S Distal AT A 95 cm/S Left lower extremity arterial Doppler velocity chart: Left CF A 155 cm/S Profunda 83 cm/S Proximal SFA 136 cm/S Mid SFA 137 cm/S Distal SFA 91 cm/S Popliteal 67 cm/S Proximal AT A 17 cm/S Tibioperoneal trunk 101 cm/S Proximal BINDERY SUPERVISOR 57 cm/S Distal BINDERY SUPERVISOR 63 cm/S Distal AT A 64 cm/S Electronically Signed by Jesse Gomez MD 10/28/2018 04:16 P
[2018-10-28 19:00] VITALS: BP 127/60
[2018-10-28] MEDS: OMEGA-3 1000MG CAPSULE PO SCH (21:26)
[2018-10-28] MEDS: PARoxetine 20 MG TAB PO SCH (21:26)
[2018-10-29] VITALS: BP 123/58
[2018-10-29] MEDS: HumaLOG INSULIN (NovoLOG) PER UNIT SC SCH ×5 (00:26→23:53)
[2018-10-29] MEDS: AMOXICILLIN 500 MG CAP PO SCH ×3 (05:40→21:11)
[2018-10-29] MEDS: ACETAMINOPHEN TAB 650MG DOSE (2X325MG) PO PRN (05:40)
[2018-10-29] MEDS: HEPARIN SOD (PORCINE) 5000 UNITS/ML VIAL SC SCH ×3 (05:41→21:11)
[2018-10-29 06:12] LABS: HEMATOCRIT 37.6 % (36.0-47.0); HEMOGLOBIN 12.9 g/dl (12.0-15.5); MEAN CORPUSCULAR HEMOGLOBIN 31.6 pg (27.0-33.0); MEAN CORPUSCULAR HGB CONC 34.3 g/dl (32.0-36.5); MEAN CORPUSCULAR VOLUME 92.2 fl (80.0-96.0); PLATELET COUNT, AUTOMATED 310 10^3/uL (150-450); RED BLOOD COUNT 4.08 10^6/uL (4.00-5.40)
[2018-10-29 06:43] LABS: BLOOD UREA NITROGEN 17 MG/DL (7-18); CALCIUM LEVEL 9.5 MG/DL (8.5-10.1); CARBON DIOXIDE LEVEL 25 MEQ/L (21-32); CHLORIDE LEVEL 106 MEQ/L (98-107); CREATININE FOR GFR 0.55 MG/DL (0.55-1.30); GLOMERULAR FILTRATION RATE > 60.0 (>51); GLUCOSE, FASTING 122 MG/DL (70-100); POTASSIUM SERUM 4.2 MEQ/L (3.5-5.1); SODIUM LEVEL 141 MEQ/L (136-145)
--- NOTE | 2018-10-29 06:58 | CR ---
DATE OF CONSULTATION: 10/28/2018 REFERRING PHYSICIAN: Dr. Greg Lama REASON FOR CONSULTATION: Bilateral leg numbness and weakness. HISTORY OF PRESENT ILLNESS: Patient is a 58-year-old woman with secondary progressive multiple sclerosis, neurogenic bladder, recurrent urinary tract infection, who presented to [facility] due to worsening of left more than right leg numbness, weakness and spasticity. The patient had infected tube removed yesterday and 3 hours later felt her legs were getting worse. She feels stiffness in her legs. She was given Solu-Medrol today and feels that her legs are getting better. The patient has a history of multiple sclerosis for 20 years. She was on Rebif, Copaxone and later Tysabri. She states that none of these medications helped her. She has been taking Tecfidera most recently. She started using a cane in 2011. She started using a walker in 2013 and then a wheelchair off and on in 2016. Her left leg has always been worse than right leg. She sometimes has urinary incontinence and urgency. Her arms are better than legs. She denies dysphagia, dysarthria, diplopia, urinary continence, loss of consciousness. She has off and on headaches and back pain. PAST MEDICAL HISTORY: Secondary progressive multiple sclerosis. Depression. Neurogenic bladder. Hysterectomy. section. HOME MEDICATIONS: - amoxicillin for 10 days - Tecfidera 240 mg by mouth twice a day - tizanidine - Paxil - vitamin D ALLERGIES: 1. SULFA. SOCIAL HISTORY: She denies smoking, alcohol or illicit drugs. FAMILY HISTORY: Noncontributory. REVIEW OF SYSTEMS: All systems were reviewed and found to be noncontributory except as mentioned in history of present illness. PHYSICAL EXAMINATION: Temperature 97.6, pulse 85, respiratory rate 20, blood pressure 127/60, 97% saturation on room air. Heart: Regular rate and rhythm. Lungs: Clear to auscultation. Abdomen: Soft, nontender, nondistended. No pedal edema. No musculoskeletal abnormalities. No rash. No signs of meningeal irritation. No dysmetria or tremor. Patient is awake, alert, oriented to place, person and time. Normal speech comprehension and repetition. Extraocular muscles are intact. No facial weakness. Tongue and uvula are midline. Recent and distant memory is intact. Visual sandoval are full to confrontation. 5/5 strength in bilateral upper extremities. Strength in her left lower extremity is 3-/5 throughout. Strength in her right lower extremity is 4/5 throughout. She has decreased cold pin prick, vibration, sensation in her legs. Deep tendon flexes 3+ throughout. Plantar's are upgoing. Her gait is unsteady. She needs assistance to stand up from chair. DIAGNOSTIC STUDIES: Her MRI scan of brain was reviewed and showed multiple white matter T2 lesions in the periventricular, corpus callosum, cerebellar and brainstem lesions without contrast enhancement. MRI brain also showed a possible 4 mm pituitary gland nodule. MRI lumbosacral spine showed multilevel degenerative disk disease of lumbar spine. CBC and metabolic profile were within normal limits. Urinalysis showed 2 WBCs and 1+ bacteria. ASSESSMENT: 1. Secondary progressive multiple sclerosis. 2. Gait difficulty and neurogenic bladder related to above. 3. Possible 4 mm pituitary nodule. 4. Multilevel lumbosacral spondylosis and degenerative disk disease. PLAN: 1. Check vitamin B12, vitamin B1, serum copper etc. 2. Solu-Medrol 1000 mg IV daily for 5 days. 3. Physical and occupational therapy. 4. The patient should be considered for inpatient rehabilitation. 5. MRI scan of pituitary gland with and without contrast. 6. Follow-up with our office in 2-4 weeks after hospital and discharge from rehabilitation.
[2018-10-29 08:00] VITALS: BP 138/80
[2018-10-29] MEDS: PANTOPRAZOLE 40MG TAB (PROTONIX) PO SCH (08:17)
[2018-10-29] MEDS: tiZANidine 4 MG TAB PO PRN ×2 (08:17→15:07)
[2018-10-29] MEDS: VITAMIN D 1,000 INTERNATIONAL UNITS TABLET PO SCH (08:17)
[2018-10-29] MEDS ORDERED: PROHANCE 279.3MG/ML 15ML VIAL (A9576) As Ordered ONE (08:37)
[2018-10-29] MEDS: methylPREDNISolone 1,000 MG, VIAL MATE ADAPTER 1 EACH in D5W 250 ML IV SCH (09:36)
--- NOTE | 2018-10-29 09:44 | REP ---
MR PITUITARY WITHOUT AND WITH CONTRAST: HISTORY: Pituitary tumor. CONTRAST: ProHance 12 mL. COMPARISON: MR 10/28/2018. A 4 mm focus of isointense signal intensity on T1 and T2-weighted images is present superior to and contiguous with the pituitary gland. This is hypointense on contrast enhanced images. 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 The pituitary gland is normal in size measuring 5 mm in height. The infundibulum is midline. The cavernous sinuses, optic chiasm and hypothalamus are normal in appearance. 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 Electronically Signed by Luis Manuel Parham MD 10/29/2018 09:48 A
[2018-10-29 12:00] VITALS: BP 120/57
--- NOTE | 2018-10-29 14:55 | IPNPDOC ---
Text Note Date of Service The patient was seen on 10/29/18. NOTE Subjective: She states she is gaining more strength in the lower extremities. Denies any weakness. Otherwise feels well. Objective: Vitals: (see below) General: No acute distress, laying comfortably in bed. HEENT: Moist mucous membranes. Neck: No JVD or lymphadenopathy Cardiac: RRR, No murmurs Pulm: Clear to auscultation b/l. No wheezing, rhonchi Abd: NT/ND + BS Ext: No edema or cyanosis Neuro: Strength 5/5 BUE and 4-5/5 RLE, 3-4/5 LLE. CN 2-12 intact. F to N intact Negative pronator drift. Labs (see below) Images: MRI brain on 10/28/18 IMPRESSION: 1. The above findings are consistent with multiple sclerosis. A previously seen lesion in the left maaury is not seen in the present examination. 2. There is a 4 mm mass in the pituitary gland. MRI of the pituitary gland without and with contrast is recommended for further evaluation. MRI L spine on 10/28/18 IMPRESSION: 1. Small left paracentral disc protrusion at the L1-2 level with minimal thecal sac compression. 2. Diffuse disc bulges at the L2-3 and L4-5 levels with minimal thecal sac compression. 3. Diffuse disc bulge and small right paracentral disc protrusion at the L3-4 level with minimal thecal sac compression. 4. Diffuse disc bulge at the L5-S1 level. This abuts the thecal sac. MRI Pituitary 10/29/18 Rathke's cleft cyst arterial u/s LE 10/28/18 Findings: Ankle brachial indices are normal at 1.2 on the right and 1.1 on the left. Minimal atherosclerotic disease is seen. Mild stenosis is suspected in the proximal anterior tibial artery on the left. Otherwise normal waveforms and velocities. Assessment/Plan 1. Multiple sclerosis exacerbation- patient with progressive multiple sclerosis. On Solu-Medrol IV 5 days. Protonix. Appreciate neurology input. Will need close outpatient follow-up. PT/OT ordered. Strength improving. 2. Recent dental extraction will continue antibiotics. Afebrile. improving. 3. History of neurogenic bladder secondary to MS 4. History of depression continue meds 5. Mild PAD- will need close outpt f/u with Dr. Slater. She has seen him in the past. DVT prophy: Heparin subcutaneous PT/OT. ? ARU after steroids are complete. VS,Fishbone, I+O VS, Fishbone, I+O Laboratory Tests 10/29/18 05:23 Red Blood Count 4.08, Mean Corpuscular Volume 92.2, Mean Corpuscular Hemoglobin 31.6, Mean Corpuscular Hemoglobin Concent 34.3, Red Cell Distribution Width 11.6, Calcium Level 9.5 Vital Signs Date Time Temp Pulse Resp B/P (MAP) Pulse Ox O2 Delivery O2 Flow Rate FiO2 10/29/18 12:00 99.1 74 18 120/57 (78) 95 10/28/18 05:07 Room Air I&O- Last 24 Hours up to 6 AM 10/29/18 06:00 Intake Total 1666 ml Output Total 1800 ml Balance -134 ml FIDEL SOUZA MD Oct 29, 2018 14:55
[2018-10-29] MEDS: BACLOFEN 5MG PER 1/2 TABLET PO SCH ×2 (18:54→21:10)
[2018-10-29 20:00] VITALS: BP 130/71
[2018-10-29] MEDS: PARoxetine 20 MG TAB PO SCH (21:10)
[2018-10-29] MEDS: OMEGA-3 1000MG CAPSULE PO SCH (21:11)
[2018-10-30 04:00] VITALS: BP 114/65
[2018-10-30 05:36] LABS: HEMATOCRIT 36.7 % (36.0-47.0); HEMOGLOBIN 12.6 g/dl (12.0-15.5); MEAN CORPUSCULAR HEMOGLOBIN 31.7 pg (27.0-33.0); MEAN CORPUSCULAR HGB CONC 34.3 g/dl (32.0-36.5); MEAN CORPUSCULAR VOLUME 92.4 fl (80.0-96.0); PLATELET COUNT, AUTOMATED 273 10^3/uL (150-450); RED BLOOD COUNT 3.97 10^6/uL (4.00-5.40); WHITE BLOOD COUNT 10.3 10^3/uL (4.0-10.0)
[2018-10-30] MEDS: HumaLOG INSULIN (NovoLOG) PER UNIT SC SCH ×3 (05:50→18:06)
[2018-10-30 05:51] LABS: BLOOD UREA NITROGEN 17 MG/DL (7-18); CALCIUM LEVEL 9.1 MG/DL (8.5-10.1); CARBON DIOXIDE LEVEL 26 MEQ/L (21-32); CHLORIDE LEVEL 108 MEQ/L (98-107); CREATININE FOR GFR 0.53 MG/DL (0.55-1.30); GLOMERULAR FILTRATION RATE > 60.0 (>51); GLUCOSE, FASTING 116 MG/DL (70-100); POTASSIUM SERUM 3.9 MEQ/L (3.5-5.1); SODIUM LEVEL 141 MEQ/L (136-145)
[2018-10-30] MEDS: AMOXICILLIN 500 MG CAP PO SCH ×3 (05:51→21:16)
[2018-10-30] MEDS: HEPARIN SOD (PORCINE) 5000 UNITS/ML VIAL SC SCH ×3 (05:51→21:16)
[2018-10-30 08:00] VITALS: BP 132/64
[2018-10-30] MEDS: methylPREDNISolone 1,000 MG, VIAL MATE ADAPTER 1 EACH in D5W 250 ML IV SCH (09:01)
[2018-10-30] MEDS: VITAMIN D 1,000 INTERNATIONAL UNITS TABLET PO SCH (09:02)
[2018-10-30] MEDS: PANTOPRAZOLE 40MG TAB (PROTONIX) PO SCH (09:02)
[2018-10-30] MEDS: BACLOFEN 5MG PER 1/2 TABLET PO SCH ×3 (09:02→20:11)
[2018-10-30] MEDS ORDERED: SLF 3 ML SYR IV PRN (09:30)
[2018-10-30 12:15] VITALS: BP 153/73
[2018-10-30 14:00] VITALS: BP 138/70
--- NOTE | 2018-10-30 14:26 | IPNPDOC ---
Text Note Date of Service The patient was seen on 10/30/18. NOTE Subjective: Strength improving. Denies chest pain or palpitations. Ambulating with physical therapy. Objective: Vitals: (see below) General: No acute distress, laying comfortably in bed. HEENT: Moist mucous membranes. Neck: No JVD or lymphadenopathy Cardiac: RRR, No murmurs Pulm: Clear to auscultation b/l. No wheezing, rhonchi Abd: NT/ND + BS Ext: No edema or cyanosis Neuro: Strength 5/5 BUE and 4-5/5 RLE, 4/5 LLE. CN 2-12 intact. F to N intact Negative pronator drift. Labs (see below) Images: MRI brain on 10/28/18 IMPRESSION: 1. The above findings are consistent with multiple sclerosis. A previously seen lesion in the left amaury is not seen in the present examination. 2. There is a 4 mm mass in the pituitary gland. MRI of the pituitary gland without and with contrast is recommended for further evaluation. MRI L spine on 10/28/18 IMPRESSION: 1. Small left paracentral disc protrusion at the L1-2 level with minimal thecal sac compression. 2. Diffuse disc bulges at the L2-3 and L4-5 levels with minimal thecal sac compression. 3. Diffuse disc bulge and small right paracentral disc protrusion at the L3-4 level with minimal thecal sac compression. 4. Diffuse disc bulge at the L5-S1 level. This abuts the thecal sac. MRI Pituitary 10/29/18 Rathke's cleft cyst arterial u/s LE 10/28/18 Findings: Ankle brachial indices are normal at 1.2 on the right and 1.1 on the left. Minimal atherosclerotic disease is seen. Mild stenosis is suspected in the proximal anterior tibial artery on the left. Otherwise normal waveforms and velocities. Assessment/Plan 1. Multiple sclerosis exacerbation- patient with progressive multiple sclerosis. On Solu-Medrol IV 5 days. Protonix. Appreciate neurology input. Will need close outpatient follow-up. PT/OT ordered. Strength improving. 2. Recent dental extraction will continue antibiotics. Afebrile. improving. 3. History of neurogenic bladder secondary to MS 4. History of depression continue meds 5. Mild PAD- will need close outpt f/u with Dr. Slater. She has seen him in the past. DVT prophy: Heparin subcutaneous PT/OT. VS,Fishbone, I+O VS, Fishbone, I+O Laboratory Tests 10/30/18 05:07 Red Blood Count 3.97 L, Mean Corpuscular Volume 92.4, Mean Corpuscular Hemoglobin 31.7, Mean Corpuscular Hemoglobin Concent 34.3, Red Cell Distribution Width 11.8, Calcium Level 9.1 Vital Signs Date Time Temp Pulse Resp B/P (MAP) Pulse Ox O2 Delivery O2 Flow Rate FiO2 10/30/18 12:15 98.6 66 17 153/73 (99) 96 10/28/18 05:07 Room Air I&O- Last 24 Hours up to 6 AM 10/30/18 06:00 Intake Total 1466 ml Output Total 200 ml Balance 1266 ml FIDEL SOUZA MD Oct 30, 2018 14:26
[2018-10-30] MEDS: SLF 3 ML SYR IV SCH ×2 (14:38→21:17)
[2018-10-30] MEDS: OMEGA-3 1000MG CAPSULE PO SCH (20:11)
[2018-10-30] MEDS: PARoxetine 20 MG TAB PO SCH (20:11)
[2018-10-30 20:28] VITALS: BP 120/60
[2018-10-30] MEDS: TECFIDERA 240 MG PO SCH (22:55)
[2018-10-31 04:14] VITALS: BP 128/61
[2018-10-31] MEDS: AMOXICILLIN 500 MG CAP PO SCH ×3 (05:35→21:11)
[2018-10-31] MEDS: HEPARIN SOD (PORCINE) 5000 UNITS/ML VIAL SC SCH ×3 (05:40→21:11)
[2018-10-31] MEDS: SLF 3 ML SYR IV SCH ×3 (05:42→21:13)
[2018-10-31] MEDS: HumaLOG INSULIN (NovoLOG) PER UNIT SC SCH ×4 (05:42→18:22)
[2018-10-31 07:00] LABS: HEMATOCRIT 35.1 % (36.0-47.0); HEMOGLOBIN 12.1 g/dl (12.0-15.5); MEAN CORPUSCULAR HEMOGLOBIN 31.8 pg (27.0-33.0); MEAN CORPUSCULAR HGB CONC 34.5 g/dl (32.0-36.5); MEAN CORPUSCULAR VOLUME 92.4 fl (80.0-96.0); PLATELET COUNT, AUTOMATED 252 10^3/uL (150-450); WHITE BLOOD COUNT 7.4 10^3/uL (4.0-10.0)
[2018-10-31 07:21] LABS: BLOOD UREA NITROGEN 21 MG/DL (7-18); CARBON DIOXIDE LEVEL 26 MEQ/L (21-32); CHLORIDE LEVEL 104 MEQ/L (98-107); CREATININE FOR GFR 0.54 MG/DL (0.55-1.30); GLOMERULAR FILTRATION RATE > 60.0 (>51); GLUCOSE, FASTING 96 MG/DL (70-100); POTASSIUM SERUM 3.9 MEQ/L (3.5-5.1); SODIUM LEVEL 138 MEQ/L (136-145)
[2018-10-31 08:00] VITALS: BP 114/65
[2018-10-31] MEDS: TECFIDERA 240 MG PO SCH ×2 (09:00→21:12)
[2018-10-31] MEDS: VITAMIN D 1,000 INTERNATIONAL UNITS TABLET PO SCH (09:10)
[2018-10-31] MEDS: BACLOFEN 5MG PER 1/2 TABLET PO SCH ×3 (09:10→21:11)
[2018-10-31] MEDS: PANTOPRAZOLE 40MG TAB (PROTONIX) PO SCH (09:10)
[2018-10-31] MEDS: methylPREDNISolone 1,000 MG, VIAL MATE ADAPTER 1 EACH in D5W 250 ML IV SCH (09:11)
[2018-10-31 14:00] VITALS: BP 127/63
--- NOTE | 2018-10-31 17:06 | IPNPDOC ---
Text Note Date of Service The patient was seen on 10/31/18. NOTE Subjective: No acute changes overnight. Patient feels well. Objective: Vitals: (see below) General: No acute distress, laying comfortably in bed. HEENT: Moist mucous membranes. Neck: No JVD or lymphadenopathy Cardiac: RRR, No murmurs Pulm: Clear to auscultation b/l. No wheezing, rhonchi Abd: NT/ND + BS Ext: No edema or cyanosis Neuro: Strength 5/5 BUE and 4-5/5 RLE, 4/5 LLE. CN 2-12 intact. F to N intact Negative pronator drift. Labs (see below) Images: MRI brain on 10/28/18 IMPRESSION: 1. The above findings are consistent with multiple sclerosis. A previously se en lesion in the left amaury is not seen in the present examination. 2. There is a 4 mm mass in the pituitary gland. MRI of the pituitary gland without and with contrast is recommended for further evaluation. MRI L spine on 10/28/18 IMPRESSION: 1. Small left paracentral disc protrusion at the L1-2 level with minimal thecal sac compression. 2. Diffuse disc bulges at the L2-3 and L4-5 levels with minimal thecal sac compression. 3. Diffuse disc bulge and small right paracentral disc protrusion at the L3-4 level with minimal thecal sac compression. 4. Diffuse disc bulge at the L5-S1 level. This abuts the thecal sac. MRI Pituitary 10/29/18 Rathke's cleft cyst arterial u/s LE 10/28/18 Findings: Ankle brachial indices are normal at 1.2 on the right and 1.1 on the left. Minimal atherosclerotic disease is seen. Mild stenosis is suspected in the proximal anterior tibial artery on the left. Otherwise normal waveforms and velocities. Assessment/Plan 1. Multiple sclerosis exacerbation- patient with progressive multiple sclerosis. On Solu-Medrol IV 5 days. Protonix. Appreciate neurology input. Will need close outpatient follow-up. PT/OT ordered. Strength improving. 2. Recent dental extraction will continue antibiotics. Afebrile. improving. 3. History of neurogenic bladder secondary to MS 4. History of depression continue meds 5. Mild PAD- will need close outpt f/u with Dr. Slater. She has seen him in the past. DVT prophy: Heparin subcutaneous PT/OT. I have discussed case with Dr. Louise, who believes that the patient will benefit from inpatient acute rehabilitation unit. I have also spoken to Dr. Kuo who is glad to accept the patient on Saturday, as they are capped today. VS,Fishbone, I+O VS, Fishbone, I+O Laboratory Tests 10/31/18 06:34 Red Blood Count 3.80 L, Mean Corpuscular Volume 92.4, Mean Corpuscular Hemo globin 31.8, Mean Corpuscular Hemoglobin Concent 34.5, Red Cell Distribution Width 11.8, Calcium Level 9.0 Vital Signs Date Time Temp Pulse Resp B/P (MAP) Pulse Ox O2 Delivery O2 Flow Rate FiO2 10/31/18 14:00 97.8 60 17 127/63 (84) 93 10/28/18 05:07 Room Air I&O- Last 24 Hours up to 6 AM 10/31/18 06:00 Intake Total 2306 ml Output Total 625 ml Balance 1681 ml FIDEL SOUZA MD Oct 31, 2018 17:06
[2018-10-31] MEDS: ACETAMINOPHEN TAB 650MG DOSE (2X325MG) PO PRN (19:44)
[2018-10-31] MEDS: OMEGA-3 1000MG CAPSULE PO SCH (21:11)
[2018-10-31] MEDS: PARoxetine 20 MG TAB PO SCH (21:12)
[2018-10-31 22:00] VITALS: BP 134/64
[2018-11-01 06:00] VITALS: BP 148/72
[2018-11-01] MEDS: HumaLOG INSULIN (NovoLOG) PER UNIT SC SCH ×2 (06:00)
[2018-11-01] MEDS: AMOXICILLIN 500 MG CAP PO SCH ×3 (06:13→21:26)
[2018-11-01] MEDS: HEPARIN SOD (PORCINE) 5000 UNITS/ML VIAL SC SCH ×3 (06:14→21:26)
[2018-11-01] MEDS: SLF 3 ML SYR IV SCH ×3 (06:14→21:27)
[2018-11-01 07:10] LABS: HEMATOCRIT 35.3 % (36.0-47.0); HEMOGLOBIN 12.1 g/dl (12.0-15.5); MEAN CORPUSCULAR HEMOGLOBIN 31.6 pg (27.0-33.0); MEAN CORPUSCULAR HGB CONC 34.3 g/dl (32.0-36.5); MEAN CORPUSCULAR VOLUME 92.2 fl (80.0-96.0); PLATELET COUNT, AUTOMATED 266 10^3/uL (150-450); RED BLOOD COUNT 3.83 10^6/uL (4.00-5.40); WHITE BLOOD COUNT 6.5 10^3/uL (4.0-10.0)
[2018-11-01 07:32] LABS: BLOOD UREA NITROGEN 19 MG/DL (7-18); CALCIUM LEVEL 8.5 MG/DL (8.5-10.1); CARBON DIOXIDE LEVEL 24 MEQ/L (21-32); CHLORIDE LEVEL 104 MEQ/L (98-107); CREATININE FOR GFR 0.51 MG/DL (0.55-1.30); GLOMERULAR FILTRATION RATE > 60.0 (>51); GLUCOSE, FASTING 97 MG/DL (70-100); POTASSIUM SERUM 4.2 MEQ/L (3.5-5.1); SODIUM LEVEL 137 MEQ/L (136-145)
[2018-11-01] MEDS: BACLOFEN 5MG PER 1/2 TABLET PO SCH ×3 (08:31→21:26)
[2018-11-01] MEDS: PANTOPRAZOLE 40MG TAB (PROTONIX) PO SCH (08:31)
[2018-11-01] MEDS: VITAMIN D 1,000 INTERNATIONAL UNITS TABLET PO SCH (08:31)
[2018-11-01] MEDS: methylPREDNISolone 1,000 MG, VIAL MATE ADAPTER 1 EACH in D5W 250 ML IV SCH (08:31)
[2018-11-01] MEDS: TECFIDERA 240 MG PO SCH ×2 (08:32→21:26)
--- NOTE | 2018-11-01 12:27 | IPNPDOC ---
Text Note Date of Service The patient was seen on 11/01/18. NOTE Subjective: Pt states weakness is improving. Believes she would benefit from A RU. Objective: Vitals: (see below) General: No acute distress, laying comfortably in bed. HEENT: Moist mucous membranes. Neck: No JVD or lymphadenopathy Cardiac: RRR, No murmurs Pulm: Clear to auscultation b/l. No wheezing, rhonchi Abd: NT/ND + BS Ext: No edema or cyanosis Neuro: Strength 5/5 BUE and 4-5/5 RLE, 4/5 LLE. CN 2-12 intact. F to N intact Negative pronator drift. Labs (see below) Images: MRI brain on 10/28/18 IMPRESSION: 1. The above findings are consistent with multiple sclerosis. A previously seen lesion in the left amaury is not seen in the present examination. 2. There is a 4 mm mass in the pituitary gland. MRI of the pituitary gland without and with contrast is recommended for further evaluation. MRI L spine on 10/28/18 IMPRESSION: 1. Small left paracentral disc protrusion at the L1-2 level with minimal thecal sac compression. 2. Diffuse disc bulges at the L2-3 and L4-5 levels with minimal thecal sac compression. 3. Diffuse disc bulge and small right paracentral disc protrusion at the L3-4 level with minimal thecal sac compression. 4. Diffuse disc bulge at the L5-S1 level. This abuts the thecal sac. MRI Pituitary 10/29/18 Rathke's cleft cyst arterial u/s LE 10/28/18 Findings: Ankle brachial indices are normal at 1.2 on the right and 1.1 on the left. Minimal atherosclerotic disease is seen. Mild stenosis is suspected in the proximal anterior tibial artery on the left. Otherwise normal waveforms and velocities. Assessment/Plan 1. Multiple sclerosis exacerbation- patient with progressive multiple sclerosis. On Solu-Medrol IV, increased to 7 days per neuro. Protonix. Appreciate neurology input. Will need close outpatient follow-up. PT/OT ordered. Strength improving. 2. Recent dental extraction will continue antibiotics. Afebrile. improving. 3. History of neurogenic bladder secondary to MS 4. History of depression continue meds 5. Mild PAD- will need close outpt f/u with Dr. Slater. She has seen him in the past. DVT prophy: Heparin subcutaneous PT/OT. I have discussed case with Dr. Louise, who believes that the patient will benefit from inpatient acute rehabilitation unit. I have also spoken to Dr. Kuo who is glad to accept the patient on Saturday, as they are capped today. VS,Fishbone, I+O VS, Fishbone, I+O Laboratory Tests 11/01/18 06:50 Red Blood Count 3.83 L, Mean Corpuscular Volume 92.2, Mean Corpuscular Hemoglobin 31.6, Mean Corpuscular Hemoglobin Concent 34.3, Red Cell Distribution Width 11.7, Calcium Level 8.5 Vital Signs Date Time Temp Pulse Resp B/P (MAP) Pulse Ox O2 Delivery O2 Flow Rate FiO2 11/01/18 06:00 98.2 65 18 148/72 (97) 93 10/28/18 05:07 Room Air I&O- Last 24 Hours up to 6 AM 11/01/18 06:00 Intake Total 2560 ml Output Total 800 ml Balance 1760 ml FIDEL SOUZA MD Nov 01, 2018 12:27
[2018-11-01 14:00] VITALS: BP 121/57
[2018-11-01] MEDS: ACETAMINOPHEN TAB 650MG DOSE (2X325MG) PO PRN (18:01)
[2018-11-01] MEDS: OMEGA-3 1000MG CAPSULE PO SCH (21:26)
[2018-11-01] MEDS: PARoxetine 20 MG TAB PO SCH (21:26)
[2018-11-01 22:00] VITALS: BP 133/70
[2018-11-02 04:00] VITALS: BP 132/62
[2018-11-02] MEDS: ACETAMINOPHEN TAB 650MG DOSE (2X325MG) PO PRN ×2 (04:19→10:20)
[2018-11-02] MEDS: AMOXICILLIN 500 MG CAP PO SCH ×3 (05:17→22:00)
[2018-11-02] MEDS: HEPARIN SOD (PORCINE) 5000 UNITS/ML VIAL SC SCH ×3 (05:17→22:00)
[2018-11-02] MEDS: SLF 3 ML SYR IV SCH ×3 (05:17→22:00)
[2018-11-02 06:56] LABS: HEMATOCRIT 35.6 % (36.0-47.0); HEMOGLOBIN 12.2 g/dl (12.0-15.5); MEAN CORPUSCULAR HEMOGLOBIN 30.9 pg (27.0-33.0); MEAN CORPUSCULAR HGB CONC 34.3 g/dl (32.0-36.5); MEAN CORPUSCULAR VOLUME 90.1 fl (80.0-96.0); PLATELET COUNT, AUTOMATED 253 10^3/uL (150-450); RED BLOOD COUNT 3.95 10^6/uL (4.00-5.40); WHITE BLOOD COUNT 7.6 10^3/uL (4.0-10.0)
[2018-11-02 07:13] LABS: BLOOD UREA NITROGEN 20 MG/DL (7-18); CALCIUM LEVEL 8.4 MG/DL (8.5-10.1); CARBON DIOXIDE LEVEL 26 MEQ/L (21-32); CHLORIDE LEVEL 103 MEQ/L (98-107); CREATININE FOR GFR 0.51 MG/DL (0.55-1.30); GLOMERULAR FILTRATION RATE > 60.0 (>51); GLUCOSE, FASTING 108 MG/DL (70-100); SODIUM LEVEL 136 MEQ/L (136-145)
[2018-11-02] MEDS: TECFIDERA 240 MG PO SCH ×3 (08:25→21:59)
[2018-11-02] MEDS: PANTOPRAZOLE 40MG TAB (PROTONIX) PO SCH (08:26)
[2018-11-02] MEDS: VITAMIN D 1,000 INTERNATIONAL UNITS TABLET PO SCH (08:26)
[2018-11-02] MEDS: BACLOFEN 5MG PER 1/2 TABLET PO SCH ×3 (08:26→22:00)
[2018-11-02] MEDS ORDERED: methylPREDNISolone INJ 125 MG/2 ML VIAL (J2930) IV SCH (09:00)
[2018-11-02] MEDS: methylPREDNISolone 1,000 MG, VIAL MATE ADAPTER 1 EACH in D5W 250 ML IV SCH (09:20)
--- NOTE | 2018-11-02 10:24 | IPNPDOC ---
Text Note Date of Service The patient was seen on 11/02/18. NOTE Subjective: No acute changes overnight. No N/V/Abd pain. Objective: Vitals: (see below) General: No acute distress, laying comfortably in bed. HEENT: Moist mucous membranes. Neck: No JVD or lymphadenopathy Cardiac: RRR, No murmurs Pulm: Clear to auscultation b/l. No wheezing, rhonchi Abd: NT/ND + BS Ext: No edema or cyanosis Neuro: Strength 5/5 BUE and 4-5/5 RLE, 4/5 LLE. CN 2-12 intact. F to N intact Negative pronator drift. Labs (see below) Images: MRI brain on 10/28/18 IMPRESSION: 1. The above findings are consistent with multiple sclerosis. A previously see n lesion in the left amaury is not seen in the present examination. 2. There is a 4 mm mass in the pituitary gland. MRI of the pituitary gland without and with contrast is recommended for further evaluation. MRI L spine on 10/28/18 IMPRESSION: 1. Small left paracentral disc protrusion at the L1-2 level with minimal thecal sac compression. 2. Diffuse disc bulges at the L2-3 and L4-5 levels with minimal thecal sac compression. 3. Diffuse disc bulge and small right paracentral disc protrusion at the L3-4 level with minimal thecal sac compression. 4. Diffuse disc bulge at the L5-S1 level. This abuts the thecal sac. MRI Pituitary 10/29/18 Rathke's cleft cyst arterial u/s LE 10/28/18 Findings: Ankle brachial indices are normal at 1.2 on the right and 1.1 on the left. Minimal atherosclerotic disease is seen. Mild stenosis is suspected in the proximal anterior tibial artery on the left. Otherwise normal waveforms and velocities. Assessment/Plan 1. Multiple sclerosis exacerbation- patient with progressive multiple sclerosis. On Solu-Medrol IV, increased to 7 days per neuro. Protonix. Appreciate neurology input. Will need close outpatient follow-up. PT/OT ordered. Strength improving. 2. Recent dental extraction will continue antibiotics. Afebrile. improving. 3. History of neurogenic bladder secondary to MS 4. History of depression continue meds 5. Mild PAD- will need close outpt f/u with Dr. Slater. She has seen him in the past. DVT prophy: Heparin subcutaneous PT/OT. I have discussed case with Dr. Louise, who believes that the patient will benefit from inpatient acute rehabilitation unit. I have also spoken to Dr. Kuo who is glad to accept the patient on Saturday. VS,Fishbone, I+O VS, Fishbone, I+O Laboratory Tests 11/02/18 06:40 Red Blood Count 3.95 L, Mean Corpuscular Volume 90.1, Mean Corpuscular Hemoglo bin 30.9, Mean Corpuscular Hemoglobin Concent 34.3, Red Cell Distribution Width 11.4 L, Calcium Level 8.4 L Vital Signs Date Time Temp Pulse Resp B/P (MAP) Pulse Ox O2 Delivery O2 Flow Rate FiO2 11/02/18 04:00 98.2 50 16 132/62 (85) 97 10/28/18 05:07 Room Air I&O- Last 24 Hours up to 6 AM 11/02/18 06:00 Intake Total 1020 ml Output Total 900 ml Balance 120 ml FIDEL SOUZA MD Nov 02, 2018 10:24
[2018-11-02 14:00] VITALS: BP 104/55
[2018-11-02 21:00] VITALS: BP 120/58
[2018-11-02] MEDS: PARoxetine 20 MG TAB PO SCH (21:59)
[2018-11-02] MEDS: OMEGA-3 1000MG CAPSULE PO SCH (22:00)
[2018-11-03 00:07] LABS: VITAMIN B1 LEVEL WHOLE BLOOD 151.2 nmol/L (66.5-200.0)
[2018-11-03] MEDS: ACETAMINOPHEN TAB 650MG DOSE (2X325MG) PO PRN ×2 (01:04→15:00)
[2018-11-03] MEDS: SLF 3 ML SYR IV SCH ×3 (05:27→21:03)
[2018-11-03 06:30] LABS: HEMATOCRIT 37.1 % (36.0-47.0); HEMOGLOBIN 12.6 g/dl (12.0-15.5); MEAN CORPUSCULAR HEMOGLOBIN 31.7 pg (27.0-33.0); MEAN CORPUSCULAR VOLUME 93.2 fl (80.0-96.0); PLATELET COUNT, AUTOMATED 270 10^3/uL (150-450); RED BLOOD COUNT 3.98 10^6/uL (4.00-5.40); WHITE BLOOD COUNT 9.7 10^3/uL (4.0-10.0)
[2018-11-03] MEDS: AMOXICILLIN 500 MG CAP PO SCH ×3 (06:42→21:02)
[2018-11-03] MEDS: HEPARIN SOD (PORCINE) 5000 UNITS/ML VIAL SC SCH ×3 (06:42→21:03)
[2018-11-03 06:45] VITALS: BP 134/66
[2018-11-03 06:55] LABS: BLOOD UREA NITROGEN 15 MG/DL (7-18); CALCIUM LEVEL 8.8 MG/DL (8.5-10.1); CARBON DIOXIDE LEVEL 29 MEQ/L (21-32); CHLORIDE LEVEL 101 MEQ/L (98-107); CREATININE FOR GFR 0.64 MG/DL (0.55-1.30); GLOMERULAR FILTRATION RATE > 60.0 (>51); GLUCOSE, FASTING 114 MG/DL (70-100); POTASSIUM SERUM 4.6 MEQ/L (3.5-5.1); SODIUM LEVEL 135 MEQ/L (136-145)
[2018-11-03] MEDS: BACLOFEN 5MG PER 1/2 TABLET PO SCH ×3 (08:58→21:02)
[2018-11-03] MEDS: VITAMIN D 1,000 INTERNATIONAL UNITS TABLET PO SCH (08:58)
[2018-11-03] MEDS: PANTOPRAZOLE 40MG TAB (PROTONIX) PO SCH (08:58)
[2018-11-03] MEDS: TECFIDERA 240 MG PO SCH ×2 (09:00→21:00)
[2018-11-03] MEDS: methylPREDNISolone 1,000 MG, VIAL MATE ADAPTER 1 EACH in D5W 250 ML IV SCH (09:00)
[2018-11-03 14:00] VITALS: BP 108/51
--- NOTE | 2018-11-03 14:51 | IPNPDOC ---
Text Note Date of Service The patient was seen on 11/03/18. NOTE Subjective: No acute changes overnight. No N/V/Abd pain. Objective: Vitals: (see below) General: No acute distress, laying comfortably in bed. HEENT: Moist mucous membranes. Neck: No JVD or lymphadenopathy Cardiac: RRR, No murmurs Pulm: Clear to auscultation b/l. No wheezing, rhonchi Abd: NT/ND + BS Ext: No edema or cyanosis Neuro: Strength 5/5 BUE and 4-5/5 RLE, 4/5 LLE. CN 2-12 intact. F to N intact Negative pronator drift. Labs (see below) Images: MRI brain on 10/28/18 IMPRESSION: 1. The above findings are consistent with multiple sclerosis. A previously see n lesion in the left amaury is not seen in the present examination. 2. There is a 4 mm mass in the pituitary gland. MRI of the pituitary gland without and with contrast is recommended for further evaluation. MRI L spine on 10/28/18 IMPRESSION: 1. Small left paracentral disc protrusion at the L1-2 level with minimal thecal sac compression. 2. Diffuse disc bulges at the L2-3 and L4-5 levels with minimal thecal sac compression. 3. Diffuse disc bulge and small right paracentral disc protrusion at the L3-4 level with minimal thecal sac compression. 4. Diffuse disc bulge at the L5-S1 level. This abuts the thecal sac. MRI Pituitary 10/29/18 Rathke's cleft cyst arterial u/s LE 10/28/18 Findings: Ankle brachial indices are normal at 1.2 on the right and 1.1 on the left. Minimal atherosclerotic disease is seen. Mild stenosis is suspected in the proximal anterior tibial artery on the left. Otherwise normal waveforms and velocities. Assessment/Plan 1. Multiple sclerosis exacerbation- patient with progressive multiple sclerosis. s/p Solu-Medrol IV x6 days per neuro. Protonix. Appreciate neurology input. Will need close outpatient follow-up. PT/OT ordered. Strength improving. 2. Recent dental extraction will continue antibiotics. Afebrile. improving. 3. History of neurogenic bladder secondary to MS 4. History of depression continue meds 5. Mild PAD- will need close outpt f/u with Dr. Slater. She has seen him in the past. Started on statin/ASA [address] Slater as pt may have delayed d/c if she goes to ARU - he will see patient today. DVT prophy: Heparin subcutaneous PT/OT. Pending ARU bed. VS,Fishbone, I+O VS, Fishbone, I+O Laboratory Tests 11/03/18 06:13 Red Blood Count 3.98 L, Mean Corpuscular Volume 93.2, Mean Corpuscular Hemoglobin 31.7, Mean Corpuscular Hemoglobin Concent 34.0, Red Cell Distribution Width 11.6, Calcium Level 8.8 Vital Signs Date Time Temp Pulse Resp B/P (MAP) Pulse Ox O2 Delivery O2 Flow Rate FiO2 11/03/18 06:45 98.3 54 18 134/66 (88) 98 10/28/18 05:07 Room Air I&O- Last 24 Hours up to 6 AM 11/03/18 06:00 Intake Total 1640 ml Output Total 600 ml Balance 1040 ml FIDEL SOZUA MD Nov 03, 2018 14:51
[2018-11-03] MEDS ORDERED: ASPIRIN 81 MG ENTERIC TAB PO ONE (15:00)
[2018-11-03] MEDS ORDERED: ATORVASTATIN 20 MG TAB PO ONE (15:00)
[2018-11-03] MEDS: ATORVASTATIN 20 MG TAB PO SCH (15:01)
[2018-11-03] MEDS: ASPIRIN 81 MG ENTERIC TAB PO SCH (15:01)
[2018-11-03] MEDS: PARoxetine 20 MG TAB PO SCH (21:02)
[2018-11-03] MEDS: OMEGA-3 1000MG CAPSULE PO SCH (21:02)
[2018-11-03 22:00] VITALS: BP 90/49
[2018-11-04] MEDS: ACETAMINOPHEN TAB 650MG DOSE (2X325MG) PO PRN ×2 (01:58→21:45)
[2018-11-04 06:00] VITALS: BP 109/53
[2018-11-04] MEDS: HEPARIN SOD (PORCINE) 5000 UNITS/ML VIAL SC SCH ×3 (06:00→21:28)
[2018-11-04] MEDS: AMOXICILLIN 500 MG CAP PO SCH ×3 (06:00→21:28)
[2018-11-04] MEDS: SLF 3 ML SYR IV SCH ×3 (06:00→21:29)
[2018-11-04 07:30] LABS: HEMOGLOBIN 11.9 g/dl (12.0-15.5); MEAN CORPUSCULAR HEMOGLOBIN 31.6 pg (27.0-33.0); MEAN CORPUSCULAR VOLUME 92.8 fl (80.0-96.0); PLATELET COUNT, AUTOMATED 265 10^3/uL (150-450); RED BLOOD COUNT 3.77 10^6/uL (4.00-5.40); WHITE BLOOD COUNT 7.4 10^3/uL (4.0-10.0)
[2018-11-04 07:59] LABS: BLOOD UREA NITROGEN 19 MG/DL (7-18); CALCIUM LEVEL 8.2 MG/DL (8.5-10.1); CARBON DIOXIDE LEVEL 29 MEQ/L (21-32); CHLORIDE LEVEL 102 MEQ/L (98-107); CREATININE FOR GFR 0.66 MG/DL (0.55-1.30); GLOMERULAR FILTRATION RATE > 60.0 (>51); GLUCOSE, FASTING 96 MG/DL (70-100); POTASSIUM SERUM 3.9 MEQ/L (3.5-5.1); SODIUM LEVEL 137 MEQ/L (136-145)
[2018-11-04] MEDS: ASPIRIN 81 MG ENTERIC TAB PO SCH (08:41)
[2018-11-04] MEDS: BACLOFEN 5MG PER 1/2 TABLET PO SCH ×3 (08:41→21:00)
[2018-11-04] MEDS: ATORVASTATIN 20 MG TAB PO SCH (08:41)
[2018-11-04] MEDS: PANTOPRAZOLE 40MG TAB (PROTONIX) PO SCH (08:41)
[2018-11-04] MEDS: VITAMIN D 1,000 INTERNATIONAL UNITS TABLET PO SCH (08:41)
[2018-11-04] MEDS: TECFIDERA 240 MG PO SCH ×2 (08:47→21:00)
[2018-11-04 15:00] VITALS: BP 133/76
--- NOTE | 2018-11-04 15:29 | REP ---
CT Head without contrast HISTORY: Fall COMPARISON: 06/12/2015 Areas of decreased attenuation are present in the periventricular white matter. This represents small-vessel ischemic disease. There is no intraparenchymal hemorrhage, acute infarct, mass or midline shift. The ventricular system and cortical sulci are dilated consistent with minimal volume loss. There is no extra cerebral collection. There is no fracture. The visualized sinuses are clear. IMPRESSION: 1. Small vessel ischemic disease. 2. Minimal volume loss. Electronically Signed by Luis Manuel Parham MD 11/04/2018 03:20 P
[2018-11-04 20:00] VITALS: BP 125/60
--- NOTE | 2018-11-04 20:43 | IPN ---
DATE: 11/04/2018 SUBJECTIVE: Patient seen and examined. Continues to report weakness. Later this afternoon patient had another episode of fall. Denies any chest pain, pressure or discomfort. Reported bilateral upper and lower extremity numbness. Denies any chest pain, pressure or discomfort. VITAL SIGNS: Temperature 97.6, pulse 57, respirations 18, blood pressure 109/53, pulse oximetry 95% on room air. LABORATORY: Whole blood volume 7.4, hemoglobin and hematocrit 11.9/35, platelets 265. Chemistry: Sodium 137, potassium 3.9, chloride 102. Bicarbonate 29. BUN 19. Creatinine 0.66. PHYSICAL EXAMINATION: GENERAL: Patient alert, comfortable, in no acute distress. HEENT: Normocephalic, atraumatic. PULMONARY: Bilateral clear.. CARDIAC: Regular. S1, S2. ABDOMEN: Soft, nontender, positive bowel sounds. EXTREMITIES: No clubbing, cyanosis or edema. ASSESSMENT AND PLAN: This is a 58-year-old female patient with underlying medical history of multiple sclerosis diagnosed in 1998, neurogenic bladder, recurrent urinary tract infection (UTI), depression, muscle spasm, presented with worsening bilateral lower extremity numbness and paresthesia. PROBLEMS: 1. Multiple sclerosis exacerbation. Complete treatment of 6 days of Solu-Medrol IV. Neurology consulted. Physical therapy (PT)/occupational therapy (OT) has been ordered. 2. Recent dental extraction. Continue antibiotics as recommended. 3. History of neurogenic bladder. Secondary to multiple sclerosis (MS). Supportive care. 4. Depression. Continue home medications. 5. Mild peripheral artery disease. Consulted Dr. Slater. Ultrasound appreciated. No intervention according to Dr. Slater. 6. Deep venous thrombosis (DVT) prophylaxis. Heparin subcutaneous. 7. Dyslipidemia. Continue statin. DISPOSITION: Pending PT/OT.
[2018-11-04] MEDS: OMEGA-3 1000MG CAPSULE PO SCH (21:00)
[2018-11-04] MEDS: PARoxetine 20 MG TAB PO SCH (21:00)
[2018-11-05] MEDS: ACETAMINOPHEN TAB 650MG DOSE (2X325MG) PO PRN ×2 (05:24→16:12)
[2018-11-05] MEDS: SLF 3 ML SYR IV SCH ×3 (05:24→20:50)
[2018-11-05] MEDS: HEPARIN SOD (PORCINE) 5000 UNITS/ML VIAL SC SCH ×3 (05:24→20:50)
[2018-11-05 07:35] LABS: HEMATOCRIT 39.5 % (36.0-47.0); HEMOGLOBIN 13.1 g/dl (12.0-15.5); MEAN CORPUSCULAR HEMOGLOBIN 31.3 pg (27.0-33.0); MEAN CORPUSCULAR HGB CONC 33.2 g/dl (32.0-36.5); MEAN CORPUSCULAR VOLUME 94.5 fl (80.0-96.0); PLATELET COUNT, AUTOMATED 288 10^3/uL (150-450); RED BLOOD COUNT 4.18 10^6/uL (4.00-5.40); WHITE BLOOD COUNT 7.8 10^3/uL (4.0-10.0)
[2018-11-05 08:00] LABS: BLOOD UREA NITROGEN 15 MG/DL (7-18); CALCIUM LEVEL 8.3 MG/DL (8.5-10.1); CARBON DIOXIDE LEVEL 28 MEQ/L (21-32); CHLORIDE LEVEL 105 MEQ/L (98-107); CREATININE FOR GFR 0.62 MG/DL (0.55-1.30); GLOMERULAR FILTRATION RATE > 60.0 (>51); GLUCOSE, FASTING 85 MG/DL (70-100); MAGNESIUM LEVEL 2.4 MG/DL (1.8-2.4); POTASSIUM SERUM 4.5 MEQ/L (3.5-5.1); SODIUM LEVEL 141 MEQ/L (136-145)
[2018-11-05] MEDS: BACLOFEN 5MG PER 1/2 TABLET PO SCH ×3 (09:00→20:49)
[2018-11-05] MEDS: PANTOPRAZOLE 40MG TAB (PROTONIX) PO SCH (09:00)
[2018-11-05] MEDS: ASPIRIN 81 MG ENTERIC TAB PO SCH (09:00)
[2018-11-05] MEDS: ATORVASTATIN 20 MG TAB PO SCH (09:00)
[2018-11-05] MEDS: TECFIDERA 240 MG PO SCH ×2 (09:00→20:50)
[2018-11-05] MEDS: VITAMIN D 1,000 INTERNATIONAL UNITS TABLET PO SCH (09:00)
[2018-11-05 14:00] VITALS: BP 130/63
[2018-11-05 20:00] VITALS: BP 145/90
[2018-11-05] MEDS: OMEGA-3 1000MG CAPSULE PO SCH (20:49)
[2018-11-05] MEDS: PARoxetine 20 MG TAB PO SCH (20:49)
--- NOTE | 2018-11-05 21:34 | IPNPDOC ---
Text Note Date of Service The patient was seen on 11/05/18. NOTE Patient seen and examined. Continues to report weakness. Denies any chest pain, pressure or discomfort. Reported bilateral upper and lower extremity numbness. Denies any chest pain, pressure or discomfort. PHYSICAL EXAMINATION: GENERAL: Patient alert, comfortable, in no acute distress. HEENT: Normocephalic, atraumatic. PULMONARY: Bilateral clear.. CARDIAC: Regular. S1, S2. ABDOMEN: Soft, nontender, positive bowel sounds. EXTREMITIES: No clubbing, cyanosis or edema. ASSESSMENT AND PLAN: This is a 58-year-old female patient with underlying medical history of multiple sclerosis diagnosed in 1998, neurogenic bladder, recurrent urinary tract infection (UTI), depression, muscle spasm, presented with worsening bilateral lower extremity numbness and paresthesia. PROBLEMS: 1. Multiple sclerosis exacerbation. Complete treatment of 6 days of Solu-Medrol IV. Neurology consulted. Physical therapy (PT)/occupational therapy (OT) has been ordered. 2. Recent dental extraction. Continue antibiotics as recommended. 3. History of neurogenic bladder. Secondary to multiple sclerosis (MS). Supportive care. 4. Depression. Continue home medications. 5. Mild peripheral artery disease. Consulted Dr. Slater. Ultrasound appreciated. No intervention according to Dr. Slater. 6. Deep venous thrombosis (DVT) prophylaxis. Heparin subcutaneous. 7. Dyslipidemia. Continue statin. 8 frequent fall and gait instability, PT OT DISPOSITION: Pending PT/OT. VS,Fishbone, I+O VS, Fishbone, I+O Laboratory Tests 11/05/18 07:18 Red Blood Count 4.18, Mean Corpuscular Volume 94.5, Mean Corpuscular Hemoglobin 31.3, Mean Corpuscular Hemoglobin Concent 33.2, Red Cell Distribution Width 12.2, Calcium Level 8.3 L Vital Signs Date Time Temp Pulse Resp B/P (MAP) Pulse Ox O2 Delivery O2 Flow Rate FiO2 11/05/18 14:00 97.8 90 18 130/63 (85) 98 I&O- Last 24 Hours up to 6 AM 11/05/18 06:00 Intake Total 720 ml Output Total 0 ml Balance 720 ml DURGA ADAM MD Nov 05, 2018 21:34
[2018-11-05 23:08] VITALS: BP 154/67
[2018-11-06] MEDS: ACETAMINOPHEN TAB 650MG DOSE (2X325MG) PO PRN (05:34)
[2018-11-06] MEDS: HEPARIN SOD (PORCINE) 5000 UNITS/ML VIAL SC SCH ×2 (05:46→14:00)
[2018-11-06 06:00] VITALS: BP_SYST 174; BP_SYST 182; BP_DIAS 68; BP_DIAS 74
[2018-11-06] MEDS: SLF 3 ML SYR IV SCH ×2 (06:12→14:00)
[2018-11-06 06:56] LABS: HEMATOCRIT 37.2 % (36.0-47.0); HEMOGLOBIN 12.8 g/dl (12.0-15.5); MEAN CORPUSCULAR HEMOGLOBIN 31.9 pg (27.0-33.0); MEAN CORPUSCULAR HGB CONC 34.4 g/dl (32.0-36.5); MEAN CORPUSCULAR VOLUME 92.8 fl (80.0-96.0); PLATELET COUNT, AUTOMATED 290 10^3/uL (150-450); RED BLOOD COUNT 4.01 10^6/uL (4.00-5.40); WHITE BLOOD COUNT 6.9 10^3/uL (4.0-10.0)
[2018-11-06 07:22] LABS: BLOOD UREA NITROGEN 15 MG/DL (7-18); CALCIUM LEVEL 8.7 MG/DL (8.5-10.1); CARBON DIOXIDE LEVEL 29 MEQ/L (21-32); CHLORIDE LEVEL 104 MEQ/L (98-107); GLOMERULAR FILTRATION RATE > 60.0 (>51); GLUCOSE, FASTING 95 MG/DL (70-100); MAGNESIUM LEVEL 2.3 MG/DL (1.8-2.4); POTASSIUM SERUM 4.3 MEQ/L (3.5-5.1); SODIUM LEVEL 138 MEQ/L (136-145)
[2018-11-06] MEDS ORDERED: ASPI81TAEC PO (08:49)
[2018-11-06] MEDS ORDERED: ATOR1TAB21 PO (08:49)
[2018-11-06] MEDS ORDERED: BACL10TA2 PO (08:49)
[2018-11-06] MEDS: TECFIDERA 240 MG PO SCH (09:00)
[2018-11-06] MEDS: PANTOPRAZOLE 40MG TAB (PROTONIX) PO SCH (09:42)
[2018-11-06] MEDS: ASPIRIN 81 MG ENTERIC TAB PO SCH (09:42)
[2018-11-06] MEDS: BACLOFEN 5MG PER 1/2 TABLET PO SCH ×2 (09:42→16:20)
[2018-11-06] MEDS: VITAMIN D 1,000 INTERNATIONAL UNITS TABLET PO SCH (09:42)
[2018-11-06] MEDS: ATORVASTATIN 20 MG TAB PO SCH (09:42)
[2018-11-06 14:00] VITALS: BP 126/69
--- NOTE | 2018-11-06 20:12 | DSES ---
DATE OF ADMISSION: 10/28/2018 DATE OF DISCHARGE: 11/06/2018 NEUROLOGIST: Elizabeth Louise MD PRIMARY CARE PROVIDER: Loly Mart MD OUTPATIENT NEUROLOGIST: Sara Romero MD VASCULAR SURGERY: Prashant Slater MD. FINAL DIAGNOSIS: 1. Multiple sclerosis (MS) exacerbation. 2. Recent dental extraction. 3. History of neurogenic bladder. 4. Depression. 5. Frequent falls. 6. Gait instability. 7. Mild peripheral artery disease. 8. Dyslipidemia. HISTORY OF PRESENT ILLNESS: This is a 58-year-old female patient with underlying medical history of multiple sclerosis diagnosed in 1998, neurogenic bladder, recurrent urinary tract infection (UTI), depression, muscle spasm, presented to the emergency department (ED) with one day history of bilateral lower extremity weakness, worse on the left, numbness and paresthesia. The patient reported symptoms started the day before admission after the patient had dental extraction, was placed on amoxicillin. Denies any cough, fevers, chills, chest pain, pressure or discomfort. Denies any shortness of breath, diarrhea. Reported frequent falls at home. HOSPITAL COURSE: The patient was admitted to the hospital. Neurology was consulted, given a 6 day course of Solu-Medrol. Physical therapy (PT) and occupational therapy (OT) have been ordered. Acute rehabilitation evaluation has been ordered twice. Application was based on physical therapy (PT) and occupational therapy (OT) evaluation. The patient is not candidate for acute rehabilitation or short-term rehabilitation, although the patient had some falling during hospital course as well. Option of nursing facility has been discussed. Vascular surgery has also been consulted for peripheral vascular disease. No surgical intervention is indicated after lower extremity arterial scan. Magnetic Resonance Imaging (MRI) of the brain, Magnetic Resonance Imaging (MRI) of the pituitary has also been done during the hospital course despite multiple physical therapy (PT) and occupational therapy evaluation. The patient is not a candidate for acute rehabilitation or short term rehabilitation, although the patient has been falling. Option of nursing facility has been discussed. The patient is adamant that she wants to go home. She believes that she has sufficient services at home to be safe. The patient was able to ease herself onto the ground if she felt she was losing balance. Counseling was provided. Subsequently, a marriage and family social worker was consulted to arrange for services at home, transportation arrangements, as well as food arrangements. Subsequently, the patient is discharged from the hospital for further care as an outpatient. VITAL SIGNS: Temperature 97, pulse 96, respirations 18, blood pressure 126/69, pulse oximetry 97% on room air. LABORATORY: White blood count (WBC) 6.9, hemoglobin and hematocrit 12.8/37.2, platelets 290. Chemistry: Sodium 138, potassium 4.3, chloride 104, bicarbonate 29, BUN 15, creatinine 0.6. PHYSICAL EXAMINATION: GENERAL: The patient alert, comfortable, in no acute distress. HEENT: Normocephalic, atraumatic. PULMONARY: Bilateral clear. CARDIAC: Regular S1, S2 ABDOMEN: Soft, nontender. Positive bowel sounds. EXTREMITIES: No clubbing, cyanosis or edema. DISCHARGE MEDICATIONS: - aspirin 81 mg by mouth daily - Lipitor 40 mg by mouth daily - baclofen 5 mg by mouth three times a day - Advair sinus congestion by mouth daily - amoxicillin 500 mg by mouth every 8 hours - vitamin D 1000 units by mouth daily - fish oil 1000 mg by mouth at bedtime (q.h.s.) - Paxil 40 mg by mouth at bedtime (q.h.s.) - Tecfidera 240 mg by mouth twice a day - tizanidine 6 mg by mouth four times a day as needed DISCHARGE INSTRUCTIONS: Please see primary care provider in 7 days. Please see neurologist in 14 days. Home with physical therapy (PT) and occupational therapy (OT). Fall precautions.
== END 2018-11-06 16:50 | disposition home health service (06) | DRG 60 ==
LOC: M ED 18:13 → M ED INP 10-28 03:37 → M PCU 10-28 05:12 → M MS4PR 10-30 12:09
PROVIDERS: ADMIT Internal Medicine; ATTEND Hospitalist
DX: G35 Multiple sclerosis (principal); F32.9 Major depressive disorder, single episode, unspecified; N31.9 Neuromuscular dysfunction of bladder, unspecified; R26.9 Unspecified abnormalities of gait and mobility; M47.817 Spondylosis without myelopathy or radiculopathy, lumbosacral region; M51.37 Other intervertebral disc degeneration, lumbosacral region; I73.9 Peripheral vascular disease, unspecified; E23.6 Other disorders of pituitary gland; Z79.899 Other long term (current) drug therapy; Z88.2 Allergy status to sulfonamides

== ENCOUNTER → 2019-01-23 | Outpatient (REF) | payer MEDICARE, OTHER ==
[~2019-01-23] MED LIST changes: +AMOX500C PO; +ASPI81TAEC PO; +ATOR1TAB21 PO; +BACL10TA2 PO; +NAPR-885 PO; -TIZA-208 PO; +TIZA4TAB4 PO; +[UNRECOGNIZED DRUG - CODE] PO
== END ==
LOC: M SFHCWAGY 12:43
PROVIDERS: ATTEND Family Medicine
DX: N94.818 Other vulvodynia (principal)

== ENCOUNTER 2019-03-19 12:58 | Outpatient (RCR) | payer MEDICARE, OTHER | END 2019-03-22 | LOC: M PT 12:58 | PROVIDERS: ATTEND Psychiatry & Neurology Neurology | DX: G35 Multiple sclerosis (principal) ==

== ENCOUNTER → 2019-04-02 | Outpatient (REF) | payer MEDICARE, OTHER ==
[2019-04-02 19:06] LABS: BASO # 0.1 10^3/uL (0.0-0.2); BASO % 1.3 % (0.0-1.0); EOS # 0.2 10^3/uL (0.0-0.50); EOS % 3.7 % (0.0-3.0); HEMATOCRIT 42.7 % (36.0-47.0); HEMOGLOBIN 14.1 g/dl (12.0-15.5); LYMPH # 0.4 10^3/uL (1.5-4.5); LYMPH % 8.5 % (24.0-44.0); MEAN CORPUSCULAR HEMOGLOBIN 31.3 pg (27.0-33.0); MEAN CORPUSCULAR VOLUME 94.9 fl (80.0-96.0); MONO # 0.6 10^3/uL (0.0-0.8); NEUTROPHILS # 3.3 10^3/uL (1.8-7.7); NEUTROPHILS % 72.3 % (36.0-66.0); PLATELET COUNT, AUTOMATED 328 10^3/uL (150-450); WHITE BLOOD COUNT 4.6 10^3/uL (4.0-10.0)
[2019-04-02 19:13] LABS: ALBUMIN 4.1 GM/DL (3.2-5.2); ALT/SGPT 22 U/L (12-78); BILIRUBIN,TOTAL 0.3 MG/DL (0.2-1.0); BLOOD UREA NITROGEN 13 MG/DL (7-18); CALCIUM LEVEL 8.9 MG/DL (8.8-10.2); CARBON DIOXIDE LEVEL 29 MEQ/L (21-32); CHLORIDE LEVEL 104 MEQ/L (98-107); CREATININE FOR GFR 0.46 MG/DL (0.55-1.30); GLOMERULAR FILTRATION RATE > 60.0 (>45); GLUCOSE, FASTING 67 MG/DL (70-100); POTASSIUM SERUM 4.2 MEQ/L (3.5-5.1); SODIUM LEVEL 141 MEQ/L (136-145); TOTAL PROTEIN 6.9 GM/DL (6.4-8.2)
== END ==
LOC: M LABNEURO 14:08
PROVIDERS: ATTEND Psychiatry & Neurology Neurology
DX: Z79.899 Other long term (current) drug therapy (principal); G35 Multiple sclerosis

== ENCOUNTER → 2019-04-22 | Outpatient (RCR) | payer MEDICARE, OTHER | LOC: M PT 03-23 15:02 | PROVIDERS: ATTEND Psychiatry & Neurology Neurology | DX: G35 Multiple sclerosis (principal) ==

== ENCOUNTER 2019-05-22 14:21 | Outpatient (RCR) | payer MEDICARE, OTHER | END 2019-05-23 | LOC: M PT 14:21 | PROVIDERS: ATTEND Psychiatry & Neurology Neurology | DX: Z51.89 Encounter for other specified aftercare (principal); G35 Multiple sclerosis ==

== ENCOUNTER 2019-06-18 13:29 | Outpatient (RCR) | payer MEDICARE, OTHER | END 2019-06-22 | LOC: M PT 13:29 | PROVIDERS: ATTEND Psychiatry & Neurology Neurology | DX: G35 Multiple sclerosis (principal) ==

== ENCOUNTER → 2019-07-03 | Outpatient (REF) | payer MEDICARE, OTHER ==
[2019-07-03 13:49] LABS: THYROID STIMULATING HORMONE 0.982 uIU/ML (0.358-3.740)
[2019-07-03 14:24] LABS: HEPATITIS B SURFACE ANTIBODY NEGATIVE (POSITIVE)
[2019-07-03 15:03] LABS: HEPATITIS C VIRUS ABY INDEX 0.1 INDEX (<0.8)
== END ==
LOC: M LABNEURO 11:44
PROVIDERS: ATTEND Psychiatry & Neurology Neurology
DX: G35 Multiple sclerosis (principal); Z79.899 Other long term (current) drug therapy

== ENCOUNTER 2019-07-22 13:45 | Outpatient (RCR) | payer MEDICARE, OTHER | END 2019-07-23 | LOC: M PT 13:45 | PROVIDERS: ATTEND Psychiatry & Neurology Neurology | DX: G35 Multiple sclerosis (principal) ==

== ENCOUNTER 2019-08-12 13:10 | Outpatient (RCR) | payer MEDICARE, OTHER | END 2019-08-22 | LOC: M PT 13:10 | PROVIDERS: ATTEND Psychiatry & Neurology Neurology | DX: G35 Multiple sclerosis (principal) ==

== ENCOUNTER 2019-08-26 14:44 | Outpatient (CLI) | payer MEDICARE, OTHER ==
[~2019-08-26] VITALS: Ht 165.1 cm; Wt 61.0 kg
[2019-08-26 14:50] VITALS: BP 127/61
[2019-08-26] MEDS ORDERED: methylPREDNISolone 1,000 MG, VIAL MATE ADAPTER 1 EACH in D5W 250 ML IV ONE (15:00)
[2019-08-26] MEDS ORDERED: GABA-1171 PO (16:08)
[2019-08-26 17:00] VITALS: BP 138/62
== END 2019-08-26 17:00 | disposition home or self-care (01) ==
LOC: M INFU 14:44
PROVIDERS: ATTEND Psychiatry & Neurology Neurology
DX: G35 Multiple sclerosis (principal); Z88.2 Allergy status to sulfonamides
CPT/HCPCS: 96365; J2930

== ENCOUNTER 2019-08-27 15:02 | Outpatient (CLI) | payer MEDICARE, OTHER ==
[~2019-08-27] VITALS: Ht 165.1 cm; Wt 61.0 kg
[~2019-08-27 15:02] MED LIST changes: +GABA-1171 PO; +methylPREDNISolone 1,000 MG, VIAL MATE ADAPTER 1 EACH in D5W 250 ML IV ONE
[2019-08-27 15:05] VITALS: BP 132/63
[2019-08-27 16:51] VITALS: BP 129/65
== END 2019-08-27 16:55 | disposition home or self-care (01) ==
LOC: M INFU 15:02
PROVIDERS: ATTEND Psychiatry & Neurology Neurology
DX: G35 Multiple sclerosis (principal); Z88.2 Allergy status to sulfonamides
CPT/HCPCS: 96365; J2930

== ENCOUNTER 2019-08-28 14:44 | Outpatient (CLI) | payer MEDICARE, OTHER ==
[~2019-08-28] VITALS: Ht 165.1 cm; Wt 61.0 kg
[~2019-08-28 14:44] MED LIST changes: -methylPREDNISolone 1,000 MG, VIAL MATE ADAPTER 1 EACH in D5W 250 ML IV ONE
[2019-08-28 14:50] VITALS: BP 118/57
[2019-08-28] MEDS ORDERED: methylPREDNISolone 1,000 MG, VIAL MATE ADAPTER 1 EACH in D5W 250 ML IV ONE (15:00)
[2019-08-28 16:10] VITALS: BP 126/65
[2019-08-28 16:30] VITALS: BP 120/66
== END 2019-08-28 16:30 | disposition home or self-care (01) ==
LOC: M INFU 14:44
PROVIDERS: ATTEND Psychiatry & Neurology Neurology
DX: G35 Multiple sclerosis (principal); Z88.2 Allergy status to sulfonamides
CPT/HCPCS: 96365; J2930

== ENCOUNTER 2019-10-22 14:59 | Outpatient (RCR) | payer MEDICARE, OTHER | END 2019-10-23 | LOC: M PT 14:59 | PROVIDERS: ATTEND Psychiatry & Neurology Neurology | DX: R26.89 Other abnormalities of gait and mobility (principal) ==

== ENCOUNTER 2019-11-17 14:26 | Outpatient (RCR) | payer MEDICARE, OTHER | END 2019-11-21 | disposition home or self-care (01) | LOC: M PT 14:26 | PROVIDERS: ATTEND Psychiatry & Neurology Neurology | DX: G35 Multiple sclerosis (principal); M62.81 Muscle weakness (generalized) ==

== ENCOUNTER 2019-12-03 15:15 | Outpatient (RCR) | payer MEDICARE, OTHER | END 2019-12-22 | LOC: M PT 15:15 | PROVIDERS: ATTEND Psychiatry & Neurology Neurology | DX: G35 Multiple sclerosis (principal) ==

== ENCOUNTER → 2020-03-24 | Outpatient (REF) | payer MEDICARE, OTHER ==
[2020-03-24 18:53] LABS: ATYPICAL LYMPH 7 % (0-5); BASOPHILS 4 % (0-1); EOSINOPHILS 8 % (0-3); LYMPHOCYTES 8 % (16-44); NEUTROPHILS 72 % (28-66)
[2020-03-24 18:56] LABS: PLATELET ESTIMATE NORMAL (NORMAL)
== END ==
LOC: M LAB REF 17:46
PROVIDERS: ATTEND Internal Medicine
DX: D72.9 Disorder of white blood cells, unspecified (principal)

== ENCOUNTER → 2020-06-30 | Outpatient (REF) | payer MEDICARE | LOC: M LAB REF 16:09 | PROVIDERS: ATTEND Internal Medicine | DX: G35 Multiple sclerosis (principal) ==

== ENCOUNTER → 2020-07-27 | Outpatient (REF) | payer MEDICARE | LOC: M LAB REF 16:56 | PROVIDERS: ATTEND Internal Medicine | DX: G35 Multiple sclerosis (principal) ==

== ENCOUNTER → 2020-08-15 | Outpatient (REF) | payer MEDICARE | LOC: M LAB REF 16:24 | PROVIDERS: ATTEND Internal Medicine | DX: G35 Multiple sclerosis (principal) ==

== ENCOUNTER 2020-09-13 14:06 | Outpatient (CLI) | payer MEDICARE ==
[~2020-09-13] VITALS: Ht 165.1 cm; Wt 63.6 kg
[2020-09-13 14:50] VITALS: BP 141/75
[2020-09-13] MEDS ORDERED: methylPREDNISolone 1,000 MG, VIAL MATE ADAPTER 1 EACH in D5W 250 ML IV ONE (15:00)
[2020-09-13 16:30] VITALS: BP 148/65
== END 2020-09-13 16:30 | disposition home or self-care (01) ==
LOC: M INFU 14:06
PROVIDERS: ATTEND Psychiatry & Neurology Neurology
DX: G35 Multiple sclerosis (principal); Z88.2 Allergy status to sulfonamides

== ENCOUNTER → 2020-09-13 | Outpatient (CLI) | payer MEDICARE ==
[2020-09-13 15:32] LABS: BASO % 0.6 % (0.0-1.0); EOS # 0.1 10^3/uL (0.0-0.5); EOS % 1.7 % (0.0-3.0); HEMATOCRIT 42.7 % (36.0-47.0); HEMOGLOBIN 14.2 g/dl (12.0-15.5); LYMPH # 0.7 10^3/uL (1.5-5.0); LYMPH % 9.8 % (24.0-44.0); MEAN CORPUSCULAR HEMOGLOBIN 30.6 pg (27.0-33.0); MEAN CORPUSCULAR HGB CONC 33.3 g/dl (32.0-36.5); MONO # 0.5 10^3/uL (0.0-0.8); MONO % 7.9 % (0.0-5.0); NEUTROPHILS # 5.5 10^3/uL (1.5-8.5); NEUTROPHILS % 79.7 % (36.0-66.0); PLATELET COUNT, AUTOMATED 373 10^3/uL (150-450); RED BLOOD COUNT 4.64 10^6/uL (4.00-5.40); WHITE BLOOD COUNT 6.9 10^3/uL (4.0-10.0)
[2020-09-13 16:32] LABS: ALBUMIN 4.2 GM/DL (3.2-5.2); ALT/SGPT 23 U/L (12-78); BILIRUBIN,DIRECT 0.2 MG/DL (0.0-0.2); BILIRUBIN,TOTAL 0.5 MG/DL (0.2-1.0); BLOOD UREA NITROGEN 14 MG/DL (7-18); CALCIUM LEVEL 9.7 MG/DL (8.8-10.2); CARBON DIOXIDE LEVEL 29 MEQ/L (21-32); CHLORIDE LEVEL 105 MEQ/L (98-107); CREATININE FOR GFR 0.61 MG/DL (0.55-1.30); GLOMERULAR FILTRATION RATE > 60.0 (>45); GLUCOSE, FASTING 96 MG/DL (70-100); POTASSIUM SERUM 4.4 MEQ/L (3.5-5.1); SODIUM LEVEL 138 MEQ/L (136-145); TOTAL PROTEIN 7.2 GM/DL (6.4-8.2)
[2020-09-13 16:42] LABS: TOTAL 25(OH) VITAMIN D 23.5 NG/ML (30.0-100.0)
[2020-09-13 16:43] LABS: VITAMIN B12 LEVEL 548 PG/ML (247-911)
[2020-09-13 16:44] LABS: HEPATITIS B SURFACE ANTIBODY NEGATIVE (POSITIVE)
[2020-09-13 16:45] LABS: FOLATE 10.3 NG/ML (>5.4)
[2020-09-13 16:54] LABS: HEPATITIS B SURFACE ANTIGEN NEGATIVE (NEGATIVE)
[2020-09-13 17:21] LABS: HEPATITIS B CORE ANTIBODY IGM NEGATIVE (NEGATIVE); HEPATITIS C VIRUS ABY INDEX 0.1 INDEX (<0.8)
[2020-09-13 17:22] LABS: HIV 1&2 SCREEN CENTAUR NEGATIVE (NEGATIVE)
[2020-09-13 17:23] LABS: HEPATITIS A ANTIBODY IGM NEGATIVE (NEGATIVE)
--- NOTE | 2020-09-14 07:36 | ECGEPIP ---
[facility] Test Date: 2020-09-13 Pat Name: AGATA TABOR Department: Room: - Gender: Female Distance Learning Unit Leader: PÉREZ : 1960 Requested By: Foster Krishnamurthy Order Number: [id number] Reading MD: Winston Link Measurements Intervals [place] Rate: 94 P: 65 MN: 142 QRS: 68 QRSD: 92 T: 45 QT: 344 QTc: 432 Interpretive Statements SINUS RHYTHM Comparison tracing not on file Electronically Signed on 09-14-2020 7:36:47 EST by Winston Link
== END ==
LOC: M EKG 13:51 → M LAB 13:51
PROVIDERS: ATTEND Psychiatry & Neurology Neurology
DX: G35 Multiple sclerosis (principal); E55.9 Vitamin D deficiency, unspecified; Z79.899 Other long term (current) drug therapy; Z88.2 Allergy status to sulfonamides
CPT/HCPCS: 36415; 80053; 80076; 82306; 82390; 82525; 82607; 82746; 82784; 83090; 83520; 83921; 84630; 85025; 86038; 86255; 86705; 86706; 86709; 86711; 86787; 86803; 87340; 87389; 93005; 96365; J2930

== ENCOUNTER 2020-09-14 15:32 | Outpatient (CLI) | payer MEDICARE ==
[~2020-09-14] VITALS: Ht 165.1 cm; Wt 63.6 kg
[~2020-09-14 15:32] MED LIST changes: +methylPREDNISolone 1,000 MG, VIAL MATE ADAPTER 1 EACH in D5W 250 ML IV ONE
[2020-09-14 17:10] VITALS: BP 158/72
== END 2020-09-14 17:10 | disposition home or self-care (01) ==
LOC: M INFU 15:32
PROVIDERS: ATTEND Psychiatry & Neurology Neurology
DX: G35 Multiple sclerosis (principal); Z88.2 Allergy status to sulfonamides
CPT/HCPCS: 96365; J2930

== ENCOUNTER 2020-09-15 11:54 | Outpatient (CLI) | payer MEDICARE ==
[~2020-09-15 11:54] MED LIST changes: -methylPREDNISolone 1,000 MG, VIAL MATE ADAPTER 1 EACH in D5W 250 ML IV ONE
[2020-09-15 12:04] VITALS: BP 140/79
[2020-09-15] MEDS ORDERED: methylPREDNISolone 1,000 MG, VIAL MATE ADAPTER 1 EACH in D5W 250 ML IV ONE (12:15)
== END 2020-09-15 14:42 | disposition home or self-care (01) ==
LOC: M INFU 11:54 → M MSPAV 12:00 → M INFU 14:42
PROVIDERS: ATTEND Psychiatry & Neurology Neurology
DX: G35 Multiple sclerosis (principal); Z88.2 Allergy status to sulfonamides
CPT/HCPCS: 96365; J2930

== ENCOUNTER 2020-10-31 15:20 | Outpatient (CLI) | payer MEDICARE ==
[~2020-10-31] VITALS: Ht 165.1 cm; Wt 63.6 kg
[2020-10-31 15:30] VITALS: BP 132/59
[2020-10-31] MEDS ORDERED: methylPREDNISolone 1,000 MG, VIAL MATE ADAPTER 1 EACH in D5W 250 ML IV ONE (15:30)
== END 2020-10-31 16:45 | disposition home or self-care (01) ==
LOC: M INFU 15:20
PROVIDERS: ATTEND Nurse Practitioner Family
DX: G35 Multiple sclerosis (principal); Z88.2 Allergy status to sulfonamides
CPT/HCPCS: 96365; J2930

== ENCOUNTER 2020-11-01 15:17 | Outpatient (CLI) | payer MEDICARE ==
[~2020-11-01] VITALS: Ht 165.1 cm; Wt 63.6 kg
[2020-11-01 15:20] VITALS: BP 130/78
[2020-11-01] MEDS ORDERED: methylPREDNISolone 1,000 MG, VIAL MATE ADAPTER 1 EACH in D5W 250 ML IV ONE (15:30)
[2020-11-01 16:55] VITALS: BP 139/74
== END 2020-11-01 16:55 | disposition home or self-care (01) ==
LOC: M INFU 15:17
PROVIDERS: ATTEND Nurse Practitioner Family
DX: G35 Multiple sclerosis (principal); Z88.2 Allergy status to sulfonamides
CPT/HCPCS: 96365; J2930

== ENCOUNTER 2020-11-02 15:16 | Outpatient (CLI) | payer MEDICARE ==
[~2020-11-02] VITALS: Ht 165.1 cm; Wt 63.6 kg
[~2020-11-02 15:16] MED LIST changes: +methylPREDNISolone 1,000 MG, VIAL MATE ADAPTER 1 EACH in D5W 250 ML IV ONE
[2020-11-02 15:30] VITALS: BP 129/60
[2020-11-02 17:00] VITALS: BP 134/68
== END 2020-11-02 17:00 | disposition home or self-care (01) ==
LOC: M INFU 15:16
PROVIDERS: ATTEND Nurse Practitioner Family
DX: G35 Multiple sclerosis (principal); Z88.2 Allergy status to sulfonamides
CPT/HCPCS: 96365; J2930

== ENCOUNTER 2020-11-03 14:48 | Outpatient (CLI) | payer MEDICARE ==
[~2020-11-03] VITALS: Ht 152.4 cm; Wt 63.6 kg
[~2020-11-03 14:48] MED LIST changes: -methylPREDNISolone 1,000 MG, VIAL MATE ADAPTER 1 EACH in D5W 250 ML IV ONE
[2020-11-03] MEDS ORDERED: methylPREDNISolone 1,000 MG, VIAL MATE ADAPTER 1 EACH in D5W 250 ML IV ONE (15:00)
[2020-11-03 15:17] VITALS: BP 137/69
[2020-11-03 16:23] VITALS: BP 151/69
== END 2020-11-03 16:30 | disposition home or self-care (01) ==
LOC: M INFU 14:48
PROVIDERS: ATTEND Nurse Practitioner Family
DX: G35 Multiple sclerosis (principal); Z88.2 Allergy status to sulfonamides
CPT/HCPCS: 96365; J2930

== ENCOUNTER 2020-11-04 15:35 | Outpatient (CLI) | payer MEDICARE ==
[~2020-11-04] VITALS: Ht 152.4 cm; Wt 63.6 kg
[~2020-11-04 15:35] MED LIST changes: +methylPREDNISolone 1,000 MG, VIAL MATE ADAPTER 1 EACH in D5W 250 ML IV ONE
[2020-11-04 15:46] VITALS: BP 135/64
[2020-11-04 17:11] VITALS: BP 142/68
== END 2020-11-04 17:10 | disposition home or self-care (01) ==
LOC: M INFU 15:35
PROVIDERS: ATTEND Nurse Practitioner Family
DX: G35 Multiple sclerosis (principal); Z88.2 Allergy status to sulfonamides
CPT/HCPCS: 96365; J2930

== ENCOUNTER 2020-11-07 17:23 | Inpatient (IN) | payer MEDICARE ==
[~2020-11-07] VITALS: Ht 165.1 cm; Wt 63.4 kg
[~2020-11-07 17:23] MED LIST changes: -methylPREDNISolone 1,000 MG, VIAL MATE ADAPTER 1 EACH in D5W 250 ML IV ONE
[2020-11-07] MEDS ORDERED: DULO1CAP6 PO (17:55)
[2020-11-07] MEDS ORDERED: TIZA1TAB12 PO (17:55)
[2020-11-07] MEDS ORDERED: BACL10TA2 PO (17:55)
[2020-11-07] MEDS ORDERED: GABA-282 PO (17:55)
[2020-11-07] MEDS ORDERED: BOOSTRIX/ADACEL VACCINE (DIPHTH/PERTUSS/ACELL/TETANUS) 0.5ML SYR IM ONE (18:30)
--- NOTE | 2020-11-07 18:59 | REP ---
INDICATION: weakness. COMPARISON: 10/20/2017. TECHNIQUE: AP portable seated chest FINDINGS: Lungs are much less well inflated than on the previous study with slight crowding of markings in the bases as subsegmental atelectatic change. No pleural effusion, dense consolidation, parenchymal mass or pulmonary nodule. No apical pleural thickening or pneumothorax. The heart, mediastinal and hilar contours as well as the aorta and airway were normal for this degree of inflation and AP portable technique. The bones are without any acute abnormality with minor degenerative changes in the spine and shoulders. No free air under the diaphragm. IMPRESSION: 1. Somewhat hypoinflated chest with slight crowding of markings in the bases that may reflect some subsegmental atelectasis. No dense consolidation, visible effusion, parenchymal mass or pulmonary nodule. <Electronically signed by Richard Zuñiga > 11/07/20 1106
--- OUTSIDE RECORDS SUMMARY | 2020-11-07 19:00 | CCD | Summary of Care ---
Author Author [facility] Organization [facility] Address Unknown Phone Unavailable Care Team Providers Care General Education Instructor Name Role Phone Brittny Loly Justen NAVA PCP Reason for Referral * Procedure/Treatment (STAT) Referred By Contact Referred To Contact Status Reason Specialty Diagnoses / Procedures Luz Aguilar NP [address] [address] Email: [email or web address] Open Specialty Services Diagnoses Required Secondary progressive multiple sclerosis Reason for Visit * Reason Comments Follow-up Encounter Details Care Team Description Date Type Department Luz Aguilar NP [address] [address] Secondary progressive multiple sclerosis (Primary Dx) 10/26/2020 Telemedicine [facility] Neurology a [facility] [address], [address] [place] [address] Allergies Comments Active Allergy Reactions Severity Noted Date GI upset Sulfa Antibiotics Nausea Only 12/14/2015 documented as of this encounter (statuses as of 10/26/2020) Medications End Date Status Medication Sig Dispensed Refills Start Date Active sodium chloride 0.9 % Inject 300 mg 0 SOLN 100 mL with into the vein natalizumab 300 MG/15ML once. CONC 300 mg Active tizanidine (ZANAFLEX) 4 Take 4 mg by 0 MG tablet mouth every 6 (six) hours as needed. Active fluoxetine (PROZAC) 40 MG Take 40 mg by 0 capsule mouth daily. Active omeprazole (PRILOSEC) 40 Take 40 mg by 0 MG capsule mouth daily. Active [place]-3 Fatty Acids (FISH Take by mouth 0 OIL PO) daily Active Turmeric Curcumin 500 MG Take by mouth 0 CAPS daily Active Multiple Vitamin Take 1 0 (MULTIVITAMIN) capsule capsule by mouth daily. Active Cholecalciferol (VITAMIN Take 1,000 0 D PO) Units by mouth daily Active vitamin E 400 UNIT Take 400 0 capsule Units by mouth daily. Active DULoxetine HCl 60 MG Oral Take 60 mg by 0 Capsule Delayed Release mouth daily Particles (CYMBALTA) Active amLODIPine Besylate 5 MG Take 5 mg by 0 Oral Tablet (NORVASC) mouth daily Active rOPINIRole HCl 1 MG Oral Take 1 mg by 0 Tablet (REQUIP) mouth Three times daily Active Naproxen 500 MG Oral Take 500 mg 0 Tablet (NAPROSYN) by mouth Two times daily with meals Active BIOTIN PO Take by mouth 0 daily Active Misc Natural Products Take by mouth 0 (OSTEO BI-FLEX JOINT daily SHIELD PO) Active Vitamin D3 25 MCG (1000 Take 1,000 0 UT) Oral Tablet Units by (CHOLECALCIFEROL) mouth daily Active CRANBERRY PO Take by mouth 0 daily Active Probiotic Product Take by mouth 0 (PROBIOTIC PO) daily Active Vitamin C 1000 MG Oral Take 1,000 mg 0 Tablet by mouth daily Active Dimethyl Fumarate 240 MG Take by mouth 0 Oral Capsule Delayed Two Times Release (Tecfidera) Daily Active Atorvastatin Calcium 20 Take 20 mg by 0 MG Oral Tablet (LIPITOR) mouth daily Active Baclofen 5 MG Oral Tablet Take 10 mg by 0 (LIORESAL) mouth Three times daily Active Gabapentin 300 MG Oral Take 300 mg 0 02 Capsule (NEURONTIN) by mouth 0 Three times daily Active methylPREDNISolone Sodium 1000 mg IV 1 each 0 Succ 1000 MG Injection daily for 5 1 Solution Reconstituted days. 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 documented as of this encounter Last Filed Vital Signs Reading Time Taken Comments Vital Sign - - Blood Pressure - - Pulse - - Temperature - - Respiratory Rate - - Oxygen Saturation - - Inhaled Oxygen Concentration 63.5 kg (140 lb) 10/26/2020 1:01 PM EST Patient weighed herself on Saturday Weight - - Height 22.94 12/14/2015 4:44 PM EDT Body Mass Index documented in this encounter Progress Notes * Luz Aguilar MIRROR POLISHER - 10/26/2020 1:00 PM EST Clinical Neuroimmunology/MS Telemedicine Visit The patient was informed of the risks, including security breach, technological failure, inability to perform a comprehensive physical exam ,which could delay o r prevent an accurate diagnosis, and potential complications from treatment deci sions rendered over a telemedical platform, after which the patient consented to the use of telehealth services. Care was delivered via telemedicine audio and v ideo connection, as per [facility] and/or [facility] directives a nd protocols. Time spent on evaluation: 30 minutes. Chief Complaint: Chief Complaint Patient presents with Follow-up HPI: Verónica Chi is a 60 y.o. right handed female who is assessed by keren nunez for urgent follow up appt for Secondary Progressive MS on no DMT. Last v isit 08/31/20. Summary of MS: (obtained from patient and outside records) MS Type: Secondary Progressive Multiple Sclerosis Onset date: 1998, ble numbness Diagnosis date: 1998 Flare history: numerous, she does not recall dates DMT, history: Copaxone, ~1999 - 2009, stopped due to persistent flares Rebif, ~2009 - 2015, stopped due to disease worsening Tysabri, started Sep 2015, stopped 2016 due to JCV Ab positive Rebif x 3-6 months in early 2016, stopped due to side effects Tecfidera, started 2016 - Apr 2020, stopped due disease progression, plan to s tart Mayzent Copaxone briefly DMT, current: none Dr. Krishnamurthy personally reviewed the outside records and/or referral documentation found in the media section of this EMR. He summarized the pelayo points in this no te. Neurological History: Summary of MS as above. Last saw Dr. Lnyn at via phone visit on 12/22/2019 when she reported R leg w orsening stiffness/spacticity. BUE hand shaking. Last Saw Dr. Sara Romero on 07/19/2020: Referred to me to consider new DMTs. Th ere had been discussion of started aubagio or mayzent. Her lymphocytes had not y et returned to the normal range at that time after stopping tecfidera. Interval History: Since the last visit, she reports: She is feeling her symptoms are much worse and think she is having a flare. She is waiting to start Mayzent. She called the office on 10/25/20. She spoke with Nurse Salcido and reports progres sing MS symptoms. She has progressing neuropathy in ankles & feet over the last 6 months. Symptoms are constant. C/o tightness in those extremities as well. She c/o constant neuropathy in arms (below elbow) & hand x 2 wks which is new. She has tremors in both hands which are intensifying over the last month. Has had tremors for a year. She is dropping things; & has difficulty feeding herself. She reports severe stiffness in both legs. Usually worse in left side but now started in the right within the last month. She reports one fall this last week. She reports her overall weakness is getting worse over the last month. She denies any recent illness; s/s infection; sudden onset weakness; or prolonge d cold exposure. She reports she started another round of home physical therapy last week twice a week. She completed the pre-testing to start Mayzent: EKG - 09/13/20 HR 94 OH 142 QTC 432. Eye Exam - 10/14/[address] Juárez, [place] Impression: No evidence of optic neuritis. There is no macular edema. No cont raindication to starting Mayzent. Labs from [facility] - 09/13/20 - CMP - wnl except Alk Phos 125 high, Anion Gap 4 low, CBC w/diff wnl except ABS Lymph 0.70 low, HBsAg neg, HBsAb neg, HBcAB IgM neg, Hep A IgM neg, Hep C Ab 0.1, Vit B12 548, Folate 10.3, Vit D 23.5, JCV Ab i ndeterminate, Sgtatify JCV Ab by inhibition neg, Methylmalonic Acid 241, NMO/MOG neg, HIV Ag/Ab Combo neg, Varicella Zoster Ab IgG positive, ARINA neg, Homocystei ne 9.6, Ceruloplasmin 26.7, Copper 122, Zinc 89, Genotype CYP2C9 *1/*1 - standar d maintenance dose 2 mg daily Current symptoms: Progressive LE dysfunction for a few years. Current mobility: WC bound, b/l legs tight, stiff, increasing falls, - did home PT recently which helped. She has started another round of PT. 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 struggles with her disability, endorsed cymbalta is helping . No cardiac history, no DM, no eye disease Sister with MS, currently 55, progressive, not on DMT. Youngest sister has SLE Diagnosis Workup and Results: Eye Exam - 10/14/[address] Juárez, [place] Impression: No evidence of optic neuritis. There is no macular edema. No cont raindication to starting Mayzent. EKG - 09/13/20 HR 94 OH 142 QTC 432 MRI Information: Laboratory Studies: Labs from [facility] - 09/13/20 CMP - wnl except Alk Phos 125 high, Anion Gap 4 low, CBC w/diff wnl except ABS L ymph 0.70 low, HBsAg neg, HBsAb neg, HBcAB IgM neg, Hep A IgM neg, Hep C Ab 0.1, Vit B12 548, Folate 10.3, Vit D 23.5, JCV Ab indeterminate, Sgtatify JCV Ab by inhibition neg, Methylmalonic Acid 241, NMO/MOG neg, HIV Ag/Ab Combo neg, Varice lla Zoster Ab IgG positive, ARINA neg, Homocysteine 9.6, Ceruloplasmin 26.7, Coppe r 122, Zinc 89, Genotype CYP2C9 *1/*1 - standard maintenance dose [address] Labs [address] [facility] 08/15/2020 MAYRA negative No results found for this or any previous visit (from the past 8736 hour(s)). Past Medical History: Diagnosis Date Anxiety Depression GERD (gastroesophageal reflux disease) MS (multiple sclerosis) Past Surgical History: Procedure Laterality Date SECTION HYSTERECTOMY Social History Tobacco Use Smoking status: Never Smoker Smokeless tobacco: Never Used Substance Use Topics Alcohol use: No Drug use: Never Family History Problem Relation Age of Onset Asthma Mother Anxiety disorder Mother Hypertension Mother Diabetes Mother Uterine cancer Mother Hypertension Father No Known Problems Sister Arthritis Brother Mult sclerosis Sister Lupus Sister Allergies as of 10/26/2020 - Reviewed 10/26/2020 Allergen Reaction Noted Sulfa antibiotics Nausea Only 12/14/2015 Outpatient Medications Marked as Taking for the 10/26/20 encounter (Telemedicine) with Luz Aguilar NP Medication Sig Dispense Refill Extra Info Baclofen 5 MG Oral Tablet (LIORESAL) Take 10 mg by mouth Three times aicha y 1 BIOTIN PO Take by mouth daily 1 CRANBERRY PO Take by mouth daily 1 DULoxetine HCl 60 MG Oral Capsule Delayed Release Particles (CYMBALTA) Ta ke 60 mg by mouth daily 1 Gabapentin 300 MG Oral Capsule (NEURONTIN) Take 300 mg by mouth Three reny es daily 1 Misc Natural Products (OSTEO BI-FLEX JOINT SHIELD PO) Take by mouth daily 1 Multiple Vitamin (MULTIVITAMIN) capsule Take 1 capsule by mouth daily. 1 [place]-3 Fatty Acids (FISH OIL PO) Take by mouth daily 1 Probiotic Product (PROBIOTIC PO) Take by mouth daily 1 tizanidine (ZANAFLEX) 4 MG tablet Take 4 mg by mouth every 6 (six) hours as needed. 1 Turmeric Curcumin 500 MG CAPS Take by mouth daily 1 Vitamin C 1000 MG Oral Tablet Take 1,000 mg by mouth daily 1 Vitamin D3 25 MCG (1000 UT) Oral Tablet (CHOLECALCIFEROL) Take 1,000 Unit s by mouth daily 1 Review of Systems: Besides the above mentioned symptoms described in the HPI, a complete review of systems was obtained. All other systems were otherwise negative. General Physical Exam: Vital Signs: Vitals: 10/26/20 1301 Weight: 63.5 kg (140 lb) Neurological Examination Mental Status/Psychiatric: The patient was awake, alert, attentive. Recent and remote memory intact to conversation with no evidence of language dysfunction. Satisfactory fund of knowledge. Normal attention span and concentration. Mental status: normal (no anxiety/depression/euphoria/pseudobulbar affect) Speech: normal (not dysphasic/cerebellar/spastic) Large amplitude action tremor of the R >L hand, worse with purposeful movements like writing or using utensil. Minor postural component, was not able to observe at rest. Tremors were observed while holding the phone for telemedicine visit. Assessment: Verónica Chi is a 60 y.o. female who is assessed by telemedicine for urgent follow up appt. Secondary progressive MS not currently on a disease modifying therapy. The patient feels like she is having a flare up with worsening symptom s over the last month. Dr. Krishnamurthy reviewed only MRI images available from . Multiple PV and Juxtacortical lesions, cervicomedullary junction, and C4 lesi on all consistent with multiple sclerosis. That being said, she is very interes anaid in trying Mayzent. Dr. Krishnamurthy discussed with her what would be reasonable e xpectations with Mayzent, namely that is not going to make recurrent symptoms or disability better, and discussed the risks. All pre-tests have been completed to start Mayzent. EKG - 09/13/20 HR 94 OH 142 QTC 432. Eye Exam - 10/14/[address] Juárez, [place]. Impression: No evidence of optic neuritis. There is no macular edema. No contraindication to starting Mayzent. Labs from [facility] - 09/13/20 - CMP - wnl except Alk Phos 125 high, Anion Gap 4 low, CBC w/diff wnl except ABS Lymph 0.70 low, HBsAg neg, HBsAb neg, HBcAB IgM neg, Hep A IgM neg, Hep C Ab 0.1, Vit B12 548, Folate 10.3, Vit D 23.5, JCV Ab indeterminate, Sgta tify JCV Ab by inhibition neg, Methylmalonic Acid 241, NMO/MOG neg, HIV Ag/Ab Co mbo neg, Varicella Zoster Ab IgG positive, ARINA neg, Homocysteine 9.6, Ceruloplas min 26.7, Copper 122, Zinc 89, Genotype CYP2C9 *1/*1 - standard maintenance dose 2 mg daily. She reports she has progressively gotten weaker over the last ariana h. She feels she is having a flare. Plan: Secondary Progressive Multiple Sclerosis Start Mayzent one month after finishing IV steroids. Will fax start form. Schedule IV steroids 1 gm for 5 days Stat at [facility]. Tremor, rubral Referral to movement disorder colleagues to evaluate for treatment options Appt scheduled 12/27/20 LE spacticity, pain Continue tizanidine 4 mg QHS Continue gabapentin 300 mg TID Continue Baclofen 10 mg TID Depression Continue Cymbalta Vitamin D deficiency Continue 1000 u. daily Orders Placed This Encounter Referral to Neurology Infusion methylPREDNISolone Sodium Succ 1000 MG Injection Solution Reconstituted ( SOLU-MEDROL) RTC 3 months Greater than 50% of this 30 minute visit was spent in medical discussion regardi ng the patient's diagnosis, prognosis, disease modifying therapies (DMT) and sym ptoms management including medication risks, benefits, and side effects. Part of the note was copied from prior progress note for continuity and updated as appropriate. I had an extensive conversation with Verónica Chi regarding these thoughts a nd recommendations. The patient demonstrated a good understanding of the risks/b enefits of this plan. Thank you for allowing us to participate in the care of this patient. If you hav e any questions, please do not hesitate to call our office. documented in this encounter Plan of Treatment Care Team Description Date Type Specialty Meng Segura MD [address] [place] [address] 12/27/2020 Office Visit Neurology Foster Krishnamurthy MD [address] [facility] 4th Floor [address] [place] [address] 01/26/2021 Telemedicine Neurology Order Schedule Name Type Priority Associated Diag noses Ordered: 10/26/2020 Referral to Neurology Outpatient STAT Secondar y progressive Infusion Referral multiple sclerosis Health Maintenance Due Date Last Done Comments Hepatitis C Screening (B. 1960 [id number]) MMR Vaccines ( - 1961 Standard series) Varicella Vaccines (1 of 1960 2 - 2-dose childhood series) DTaP,Tdap,and Td Vaccines 1966 (1 - Tdap) HIV Screening 1972 Cervical Cancer Screening 1980 5 years Breast Cancer Screening 2 2009 years Colon Cancer Screening 10 2009 yrs Zoster Vaccines (1 of 2) 2009 Influenza Vaccine 06/23/2020 Pneumococcal Vaccine: 65+ 2024 Years (1 of 1 - PPSV23) HIB Vaccines Aged Out No longer eligible based on patient's age to complete this topic Hepatitis A Vaccines Aged Out No longer eligibl e based on patient's age to complete this topic Hepatitis B Vaccines Aged Out No longer eligibl e based on patient's age to complete this topic IPV Vaccines Aged Out No longer eligible based on patient's age to complete this topic Pneumococcal Vaccine: Aged Out No longer eligib le based on patient's age to Pediatrics (0 to 5 Years) complete this topic and At-Risk Patients (6 to 64 Years) documented as of this encounter Results Not on filedocumented in this encounter Visit Diagnoses Diagnosis Secondary progressive multiple sclerosi s - Primary Multiple sclerosis documented in this encounter
--- OUTSIDE RECORDS SUMMARY | 2020-11-07 19:01 | CCD | Continuity of Care Document ---
Author Author Verónica ROMERO M.D. Organization Unknown Address [address] [place] [address] Phone [phone] Care Team Providers Care Slab Lifting Engineer Name Role Phone Loly Mart D.O. [phone] Problems Active Problems Provider Date Multiple sclerosis Sara Romero M.D. Onset: 02/13/2016 Social History Type Date Description Comments Sex Unknown Tobacco Use Start: Unknown Patient has never smoked Allergies, Adverse Reactions, Alerts Active Allergies Reaction Severity Comments Date Sulfa Antibiotics 02/13/2016 Medications Active Medications SIG Qnty Indications Ordering Provide r Date Aubagio 7mg Tablets 1 by mouth every day (90 day supply) 90tabs Di Louise M.D. 08/09/2020 Primidone 50mg Tablets 1/2 tab by mouth nightly 15tabs Sara Romero M.D. 07/19/2020 Tizanidine HCL 4mg Tablets take 1 to 2 tablets by mouth twice a day as needed 120tabs Sara Foote M.D. 05/27/2020 Gabapentin 300mg Capsules 1 tab by mouth three times a day (90 day supply) 270caps Sara Romero M.D. 05/03/2020 Whisper Ject Autoinjector Device use as directed 1units Sara Romero M.D. 03/21/2020 Glatopa 40mg/ml Soln Prefill Syrin ge 1ml subcutaneous three times a week 24ml Minal Henry 02/26/2020 Glatopa 40mg/ml Soln Prefill Syrin ge please provide whisper jet 1ml Sara Romero M.D. Lyrica 50mg Capsules 1 by mouth twice a day 60caps Sara Nick, M.D. 02/02/2019 Baclofen 10mg Tablets 1 tab by mouth every 8 hours as needed 120tabs Sara Romero M.D. 11/18/[address] 1 tabs twice a day 60prem Marvin M.D. 07/31/2018 Fluoxetine HCL 40mg Capsules 1 by mouth every day 90prem Louise M.D. 05/14/2016 Immunizations Description No Information Available Vital Signs Date Vital Result Comment 02/13/2016 4:13pm BP Systolic 120 mmHg BP Diastolic 80 mmHg Height 65 inches 5'5" Weight 145.00 lb BMI (Body Mass Index) 24.1 kg/m2 [place] Body Weight 125 lb Results Test Acquired Date Facility Test Result H/L Range Note MAYRA Virus Dna PCR Whole Blood 06/30/2020 N2N/CCD Imp ort MARYA Virus Dna PCR Whole Blood Negative 1 1 No JCV DNA detected This test was developed and its performance characteristics determined by [facility]. It has not been cleared or approved by the Food and Drug Administration. The FDA has determined that such clearance or approval is not necessary. Performed at: [address] [id number] D[facility] Patient Care Technician: Grupo Silvestre MD, Phone: [phone] Procedures Description No Information Available Medical Devices Description No Information Available Encounters Type Date Location Provider Dx Diagnosis Office Visit 08/25/2020 4:[place] G35 Multiple sclerosis M62.838 Other muscle spasm R20.2 Paresthesia of skin M62.9 Disorder of muscle, unspecif ied Office Visit 07/19/2020 3:45p [place] R26.2 Difficulty in walking, not elsewhere classified G60.9 Hereditary and idiopathic ne uropathy, unspecified Office Visit 05/09/2020 9:45a [place] G35 Multiple sclerosis M62.9 Disorder of muscle, unspecif ied R27.0 Ataxia, unspecified Assessments Date Code Description Provider 08/25/2020 G35 Multiple sclerosis Sara Romero M.D. 08/25/2020 M62.838 Other muscle spasm Sara Romero M.D. 08/25/2020 R20.2 Paresthesia of skin Sara Romero M.D. 08/25/2020 M62.9 Disorder of muscle, unspecified Sara Romero, MinalDSarah 07/19/2020 R26.2 Difficulty in walking, not elsew here classified Sara Romero M.D. 07/19/2020 G60.9 Hereditary and idiopathic neurop athy, unspecified Sara Romero M.D. 05/09/2020 G35 Multiple sclerosis Sara Romero M.D. 05/09/2020 M62.9 Disorder of muscle, unspecified Sara Romero M.D. 05/09/2020 R27.0 Ataxia, unspecified Sara Romero M.D. Plan of Treatment Future Appointment(s):* 11/10/2020 4:00 pm - Sraa Romero M.D. at Main office - [place] Functional Status Description No Information Available Mental Status Description No Information Available Referrals Description No Information Available
--- OUTSIDE RECORDS SUMMARY | 2020-11-07 19:01 | CCD | Continuity of Care Document ---
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 Name Role Phone [facility] AUTM [phone] Loly Mart DO AUTM Unavailable Sara Romero MD AUTM [phone] Dolly Hopkins NP AUTM [phone] [facility] AUTM [phone] [facility] AUTM Unavailable Problems Active Problems Provider Date Vitamin D deficiency Loly Mart DO Onset: 11/11/2012 Multiple sclerosis Loly Mart DO Onset: 11/11/2012 Social History Type Date Description Comments Sex Unknown ETOH Use Denies alcohol use Tobacco Use Start: Unknown Patient has never smoked Allergies, Adverse Reactions, Alerts Active Allergies Reaction Severity Comments Date Sulfa Nausea, GI Upset 12/13/2011 Medications Active Medications SIG Qnty Indications Ordering Provide r Date Duloxetine HCL 30mg Caps DR Armando 1 by mouth in evening 90caps Loly Mart,DO 08/15/2020 Nitrofurantoin Monohyd Macro 100mg Capsules 1 by mouth twice a day x 7 days 14caps Loly bowling,DO 08/08/2020 Duloxetine HCL 60mg Caps DR Armando 1 in am 60caps Loly Mart,DO 07/15/2020 Amlodipine Besylate 5mg Tablets 1 by mouth every day 30tabs Loly Mart,DO 06/10/2020 Ropinirole HCL 1mg Tablets one po bid 60tabs Loly MartDO 04/29/2020 Naproxen 500mg Tablets 1 by mouth twice a day with food for 10 days then use only as needed 60tabs Loly Mart,DO 10/27/2018 Biotin Capsules 1 by mouth e very day Loly Mart,DO 09/30/2017 Osteo Bi-Flex Tablets 1 every day by mouth Loly Mart,DO 01/05/2016 Vitamin D-3 1000Unit Capsules 1 by mouth every day 90caps Loly Mart,DO 07/06/2015 Cranberry Capsules 3 po qd Loly Mart,DO 12/02/2014 Probiotic Capsules 2 po qd Loly Mart,DO 11/11/2012 Tizanidine HCL 4mg Tablets 1 po Qid pain Loly Mart,DO 03/24/2010 Vitamin C 1000mg Tablets Loly Mart,DO 03/24/2010 Fish Oil 1200mg Loly Mart,DO 03/24/[address] 1 by mouth twice a day Unknown Atorvastatin Calcium 20mg Tablets 1 by mouth every day 90tabs Loly Mart,DO Baclofen 5mg Tablets tid Unknown Immunizations CPT Code Status Date Vaccine Lot # 15711 Refused 10/15/2018 Influenza Virus Vaccine, Quadrivalent ([id number]), Derived From Cell Vital Signs Date Vital Result Comment 08/15/2020 1:39pm BP Systolic 122 mmHg BP Diastolic 78 mmHg Heart Rate 82 /min Height 64.50 inches 5'4.50" O2 % BldC Oximetry 97 % RM Air 07/15/2020 2:14pm BP Systolic 112 mmHg BP Diastolic 60 mmHg Heart Rate 86 /min Height 64.50 inches 5'4.50" Weight 140.00 lb O2 % BldC Oximetry 98 % RM Air BMI (Body Mass Index) 23.7 kg/m2 Results Test Acquired Date Facility Test Result H/L Range Note Laboratory test finding 09/13/2020 [facility] [address] [place] [address] [phone] Myelin Oligodendrocyte Glycopr Negative Normal 1 Homocyst(E)Ine Serum SEE SEPARATE REP <SEE NOTE> Normal 2 MAYRA Virus Brandi Stratify 09/13/2020 [facility] [address] [place], [place] [id number] [phone] Index Value SEE SEPARATE REP <SEE NOTE> Normal 3 JCV Antibody SEE SEPARATE REP <SEE NOTE> Normal 4 Interpretation SEE SEPARATE REP <SEE NOTE> Normal 5 JCV Antibody By Inhibition SEE SEPARATE REP <SEE NOTE> Normal 6 Interpretation SEE SEPARATE REP <SEE NOTE> Normal 7 Laboratory test finding 09/13/2020 [place] [address] [phone] Antinuclear Antibodies See Separate Rep <SEE NOTE> No rmal 8 Herpes Zoster, Varicella IgG SEE SEPARATE REP <SEE NOTE> Normal 9 Methylmalonic Acid SEE SEPARATE REP <SEE NOTE> Normal 10 Ceruloplasmin SEE SEPARATE REP <SEE NOTE> mg/dL Normal 11 Copper Plasma SEE SEPARATE REP <SEE NOTE> Normal 12 Zinc Plasma See Separate Rep <SEE NOTE> Normal 13 Nmo IgG Autoantibodies S Normal Laboratory test finding 09/13/2020 [place] [address] [phone] Hepatitis B Surface Antibody NEGATIVE Normal Pos itive Vitamin B12 Level 548 pg/mL Normal 247-911 14 Folate 10.3 NG/ML Normal >5.4 15 Total 25(Oh) Vitamin D 23.5 NG/ML Low 30.0-100.0 HIV 1&2 Screen Centaur NEGATIVE Normal Negative 16 Miscellaneous Test Lab See Separate Rep <SEE NOTE> Normal 17 Hepatitis Profile 09/13/2020 [facility] nter [address] [place] [address] [phone] Hepatitis C Virus Brandi Index 0.1 INDEX Normal <0.8 18 Hepatitis B Surface Antigen NEGATIVE Normal Negative Hepatitis B Core Antibody Igm NEGATIVE Normal Negative Hepatitis A Antibody Igm NEGATIVE Normal Negative Laboratory test finding 09/13/[address] [address] [phone] Immunoglobulin A 211.0 mg/dL Normal 70-400 Liver Profile 09/13/2020 [facility] nter [address] [place] [address] [phone] Bilirubin,Direct 0.2 mg/dL Normal 0.0-0.2 Comprehensive Metabolic Profil 09/13/[address] [address] [phone] Glucose, Fasting 96 mg/dL Normal 70-100 Blood Urea Nitrogen 14 mg/dL Normal 7-18 Creatinine For GFR 0.61 mg/dL Normal 0.55-1.30 Glomerular Filtration Rate > 60.0 Normal >45 1 9 Sodium Level 138 mEq/L Normal 136-145 Potassium Serum 4.4 mEq/L Normal 3.5-5.1 Chloride Level 105 mEq/L Normal 98-107 Carbon Dioxide Level 29 mEq/L Normal 21-32 Anion Gap 4 mEq/L Low 8-16 Calcium Level 9.7 mg/dL Normal 8.8-10.2 Ast/Sgot 12 U/L Normal 7-37 Alt/SGPT 23 U/L Normal 12-78 Alkaline Phosphatase 125 U/L High 45-117 Bilirubin,Total 0.5 mg/dL Normal 0.2-1.0 Total Protein 7.2 GM/DL Normal 6.4-8.2 Albumin 4.2 GM/DL Normal 3.2-5.2 Albumin/Globulin Ratio 1.4 Normal 1.2-2.2 CBC With Differential 09/13/2020 [place] [id number] [phone] White Blood Count 6.9 10 Normal 4.0-10.0 Red Blood Count 4.64 10 Normal 4.00-5.40 Hemoglobin 14.2 g/dL Normal 12.0-15.5 Hematocrit 42.7 % Normal 36.0-47.0 Mean Corpuscular Volume 92.0 fl Normal 80.0-96.0 Mean Corpuscular Hemoglobin 30.6 pg Normal 27.0-33.0 Mean Corpuscular HGB Conc 33.3 g/dL Normal 32.0-36.5 Red Cell Distribution Width 11.7 % Normal 11.5-14.5 Platelet Count, Automated 373 10 Normal 150-450 Neutrophils % 79.7 % High 36.0-66.0 Lymph % 9.8 % Low 24.0-44.0 [place] % 7.9 % High 0.0-5.0 Eos % 1.7 % Normal 0.0-3.0 Baso % 0.6 % Normal 0.0-1.0 Immature Granulocyte % 0.3 % Normal 0-3.0 Nucleated Red Blood Cell % 0.0 % Normal 0-0 Neutrophils # 5.5 10 Normal 1.5-8.5 Lymph # 0.7 10 Low 1.5-5.0 [place] # 0.5 10 Normal 0.0-0.8 Eos # 0.1 10 Normal 0.0-0.5 Baso # 0.0 10 Normal 0.0-0.2 MAYRA Virus Brandi Stratify 08/15/2020 [facility] [address] [place], [place] [id number] [phone] Index Value 0.14 Normal . JCV Antibody Negative Normal . 20 Interpretation (SEE NOTE) Normal . 21 JCV Antibody By Inhibition TNP Normal . Interpretation (SEE NOTE) Normal . 22 Complete Blood Count 08/15/2020 [facility] [employer] Examiner: [place] [address] [phone] WBC 6.8 x10*3/UL 4.1 - 10.9 RBC 4.55 x10*6/UL 4.20 - 6.30 Hemoglobin 14.4 g/dL 12.0 - 18.0 Hematocrit 41.2 % 37.0 - 51.0 MCV 90.4 fL 80.0 - 97.0 MCH 31.7 pg 26.0 - 32.0 MCHC 35.0 g/dL 31.0 - 38.0 RDW 12.4 % 11.6 - 13.7 PLT 340 x10*3/UL 140 - 440 MPV 7.8 FL 7.8 - 11.0 Lymph % 10.1 % 10.0 - 58.5 Mid % 2.6 % 1.7 - 9.3 Neut % 87.3 % 37.0 - 92.0 Lymph # 0.6 x10*3/UL 0.6 - 4.1 Mid # 0.3 x10*3/UL 0.1 - 0.6 Neut # 5.9 x10*3/UL 2.0 - 7.8 Comprehensive Chem Profile 08/15/2020 [facility] [employer] Examiner: [place] [address] [phone] Glucose 93 mg/dL 74 - 99 23 BUN 16 mg/dL 7 - 18 Creatinine 0.5 mg/dL Low 0.6 - 1.3 Sodium 139 mEq/L 136 - 145 Potassium 4.6 mEq/L 3.5 - 5.1 Chloride 102 mEq/L 98 - 107 Carbon Dioxide 29 mEq/L 21 - 32 Calcium 9.5 mg/dL 8.5 - 10.1 Alk. Phosphatase 92 mg/dL 46 - 116 Total Bilirubin 0.5 mg/dL 0.2 - 1.0 Ast (Sgot) 14 U/L Low 15 - 37 Alt (SGPT) 20 U/L 12 - 78 Albumin 4.0 g/dL 3.4 - 5.0 Total Protein 7.0 g/dL 6.4 - 8.2 A/G Ratio 1.33 CALC 1.00 - 1.90 GFR >= 60 mL/min >60 GFR >= 60 mL/min >60 24 MAYRA Virus Dna PCR Whole Blood 07/27/[address] [address] [phone] MAYRA Virus Dna PCR Whole Blood Negative Normal Neg ative 25 Complete Blood Count 07/27/2020 [facility] [employer] Examiner: Dr [place]von [place] [id number] [phone] WBC 6.4 x10*3/UL 4.1 - 10.9 RBC 4.55 x10*6/UL 4.20 - 6.30 Hemoglobin 14.5 g/dL 12.0 - 18.0 Hematocrit 40.5 % 37.0 - 51.0 MCV 89.0 fL 80.0 - 97.0 MCH 31.8 pg 26.0 - 32.0 MCHC 35.8 g/dL 31.0 - 38.0 RDW 12.0 % 11.6 - 13.7 PLT 335 x10*3/UL 140 - 440 MPV 7.9 FL 7.8 - 11.0 Lymph % 7.1 % Low 10.0 - 58.5 Mid % 7.4 % 1.7 - 9.3 Neut % 85.5 % 37.0 - 92.0 Lymph # 0.4 x10*3/UL Low 0.6 - 4.1 Mid # 0.5 x10*3/UL 0.1 - 0.6 Neut # 5.5 x10*3/UL 2.0 - 7.8 MAYRA Virus Dna PCR Whole Blood 06/30/2020 [place] [address] [place] [address] [phone] MAYRA Virus Dna PCR Whole Blood Negative Normal Neg ative 26 Complete Blood Count 06/30/2020 [facility] sonia hernandez [employer] Examiner: [place] [address] [phone] WBC 6.0 x10*3/UL 4.1 - 10.9 27 RBC 4.47 x10*6/UL 4.20 - 6.30 Hemoglobin 14.2 g/dL 12.0 - 18.0 Hematocrit 39.8 % 37.0 - 51.0 MCV 89.0 fL 80.0 - 97.0 MCH 31.7 pg 26.0 - 32.0 MCHC 35.7 g/dL 31.0 - 38.0 RDW 11.9 % 11.6 - 13.7 PLT 305 x10*3/UL 140 - 440 MPV 7.7 FL Low 7.8 - 11.0 Lymph % 8.1 % Low 10.0 - 58.5 Mid % 2.4 % 1.7 - 9.3 Neut % 89.5 % 37.0 - 92.0 Lymph # 0.4 x10*3/UL Low 0.6 - 4.1 Mid # 0.2 x10*3/UL 0.1 - 0.6 Neut # 5.4 x10*3/UL 2.0 - 7.8 Comprehensive Chem Profile 06/30/2020 [facility] Denise [employer] Examiner: [place] [address] [phone] Glucose 83 mg/dL 74 - 99 28 BUN 22 mg/dL High 7 - 18 Creatinine 0.6 mg/dL 0.6 - 1.3 Sodium 140 mEq/L 136 - 145 Potassium 4.8 mEq/L 3.5 - 5.1 Chloride 105 mEq/L 98 - 107 Carbon Dioxide 30 mEq/L 21 - 32 Calcium 9.1 mg/dL 8.5 - 10.1 Alk. Phosphatase 94 mg/dL 46 - 116 Total Bilirubin 0.5 mg/dL 0.2 - 1.0 Ast (Sgot) 10 U/L Low 15 - 37 Alt (SGPT) 19 U/L 12 - 78 Albumin 3.8 g/dL 3.4 - 5.0 Total Protein 6.6 g/dL 6.4 - 8.2 A/G Ratio 1.36 CALC 1.00 - 1.90 GFR >= 60 mL/min >60 GFR >= 60 mL/min >60 29 1 REFERENCE INTERVAL: Negative No informative autoantibodies were detected in this evaluation. A negative result does not preclude a diagnosis of an inflammatory MANAGER CAR demyelinating disorder. ADDITIONAL INFORMATIO N This test was developed and its performance characteristics determined by [facility] in a manner consistent with CLIA requirements. This test has not been cleared or approved by the U.S. Food and Drug Administration. 2 SEE SEPARATE REPORT 3 SEE SEPARATE REPORT 4 SEE SEPARATE REPORT 5 SEE SEPARATE REPORT 6 SEE SEPARATE REPORT 7 SEE SEPARATE REPORT 8 See Separate Report Testing performed at reference lab. Report copy to follow on a separate form. 09/30/20 REF LAB#:[id number] 9 SEE SEPARATE REPORT 10 SEE SEPARATE REPORT 11 SEE SEPARATE REPORT 12 SEE SEPARATE REPORT 13 See Separate Report 14 VITAMIN B12 NORMAL RANGE NORMAL 247 - 911 PG/ML INDETERMINATE 211 - 246 PG/ML DEFICIENT LESS THAN 211 PG/ML 15 FOLATE NORMAL RANGE NORMAL GREATER THAN 5.4 NG/ML INDETERMINATE 3.4-5.4 NG/ML DEFICIENT LESS THAN 3.4 NG/ML 16 This assay was performed uti lizing a chemiluminescent principle technique for the simultaneous qualitative detection of HIV-1 p24 antigen & antibodies to HIV-1 (including group O) & HIV-2 using the [employer] system. The estimated 95% confidence interval for sensitivity of this antigen/antibody combination assay for HIV-1&2 antibodies is 99.7-100% and HIV p24 antigen is 89.4-99.9%. The estimated 95% confidence interval for specificity of this antigen/antibody combination in low risk populations is 99.6-99.8%. 17 See Separate Report Testing performed at reference lab . Report copy to follow on a separate form. 09/23/20 REF LAB#:[id number] Order this test in the future with mneumonic [] . Silverman = [] , CPT CODES = []. Sample was sent to [] . Specimen requirements are [] . Please call the lab with any other questions. 18 Negative Not infected with HCV, unless recent infection is suspected or other evidence exists to indicate HCV infection. 19 Units are mL/min/1.73 m2 Chronic Kidney Disease Staging per NKF: Stage I & II GFR >=60 Normal to Mildly Decreased Stage III GFR 30-59 Moderately Decreased Stage IV GFR 15-29 Severely Decreased Stage V GFR <15 Very Little GFR Left ESRD GFR <15 on SALES [employer] SERVICE ASSOCIATE 20 Index interpretive criteria: <0.20 negative 0.20-0.40 indeterminate >0.40 positive 21 . Negative: Antibodies to JCV not detected. Indeterminate: Low level reactivity detected, see Inhibition Assay result to follow for the final antibody result. Positive: Antibodies to MAYRA virus (JCV) detected indicating the patient has been exposed to JCV at an undetermined time. . The STRATIFY JCV Antibody Test is an enzyme-linked immunosorbent assay (DAYNA) designed to detect JCV antibodies to help identify individuals who have been exposed to the virus. Samples with low level reactivity in the detection assay are retested in a confirmation (inhibition) assay to confirm presence o r absence of JCV- specific antibodies. . Retrospective analyses of post marketing data from various sources, including observational studies and spontaneous reports obtained worldwide, suggest that the risk of developing PML may be associated with relative levels of serum anti-JCV antibody as measured by anti-JCV antibody index.1 . 1TYSABRI (natalizumab) [place] Prescribing Information. 22 . Positive: Antibodies to MAYAR virus (JCV) detected indicating the patient has been exposed to JCV at an undetermined time Negative: Antibodies to JCV not detected Performed at: [facility] [address] [place], [place] [id number] [employer] Examiner: Farooq Askew MD, Phone: [phone] Performed at: - [facility] [id number] [employer] Examiner: Vale Kilpatrick MD, Phone: [phone] 23 100-125 mg/dL PRE-DIABET ES/FASTING >126 mg/dL DIABETES/FASTING 24 CHRONIC KIDNEY DISEASE STAGI NG PER NKF STAGE I & II GFR >= 60 NORMAL TO MILDLY DECREASED STAGE III GFR 30-59 MODERATELY DECREASED STAGE IV GFR 15-29 SEVERELY DECREASED STAGE V GFR <15 VERY LITTLE GFR LEFT ESRD GFR <15 ON SALES & SERVICE ASSOCIATE 25 No JCV DNA detected This test was developed and its performance characteristics determined by [employer]. It has not been cleared or approved by the Food and Drug Administration. The FDA has determined that such clearance or approval is not necessary. Performed at: [facility],[address] [id number] [employer] Examiner: Grupo Silvestre MD, Phone: [phone] 26 No JCV DNA detected This test was developed and its performance characteristics determined by [employer]. It has not been cleared or approved by the Food and Drug Administration. The FDA has determined that such clearance or approval is not necessary. Performed at: - [facility] [id number] [employer] Examiner: Grupo Silvestre MD, Phone: [phone] 27 NOTE: RESULT VERIFIED. 28 100-125 mg/dL PRE-DIABET ES/FASTING >126 mg/dL DIABETES/FASTING 29 CHRONIC KIDNEY DISEASE STAGI NG PER NKF STAGE I & II GFR >= 60 NORMAL TO MILDLY DECREASED STAGE III GFR 30-59 MODERATELY DECREASED STAGE IV GFR 15-29 SEVERELY DECREASED STAGE V GFR <15 VERY LITTLE GFR LEFT ESRD GFR <15 ON SALES & SERVICE ASSOCIATE Procedures Date Code Description Status 06/02/2018 [id number] Mammogram Completed 02/06/2017 [id number] Bone Mineral Density Test Comple anaid 11/22/2016 [id number] Mammogram Completed 08/06/2014 [id number] Mammogram Completed 04/03/2013 [id number] Colonoscopy Completed 08/08/2012 [id number] Mammogram Completed 08/29/2010 [id number] Mammogram Completed 03/03/2009 [id number] Bone Mineral Density Test Comple [facility] Medical Devices Description No Information Available Encounters Type Date Location Provider Dx Diagnosis Office Visit 08/15/2020 1:45p [facility] PAustin Mart DO G35 Multiple sclerosis I73.00 Raynaud's syndrome without g angrene G25.81 Restless legs syndrome G89.29 Other chronic pain F41.1 Generalized anxiety disorder F32.9 Major depressive disorder, s jimmy episode, unspecified E78.5 Hyperlipidemia, unspecified Office Visit 07/15/2020 2:15p [facility] Mart DO I73.00 Raynaud's syndrome without gangrene G35 Multiple sclerosis G25.81 Restless legs syndrome G89.29 Other chronic pain F41.1 Generalized anxiety disorder F32.9 Major depressive disorder, s jimmy episode, unspecified R25.1 Tremor, unspecified Office Visit 06/10/2020 3:00p [facility], PAustin Mart ,DO I73.00 Raynaud's syndrome without gangrene G25.81 Restless legs syndrome G89.29 Other chronic pain F41.1 Generalized anxiety disorder G35 Multiple sclerosis Office Visit 04/29/2020 2:45p [facility], PAustin Mart ,DO I73.00 Raynaud's syndrome without gangrene G25.81 Restless legs syndrome G89.29 Other chronic pain F32.9 Major depressive disorder, s jimmy episode, unspecified F41.1 Generalized anxiety disorder G35 Multiple sclerosis Assessments Date Code Description Provider 08/15/2020 G35 Multiple sclerosis Loly Mart,D O 08/15/2020 I73.00 Raynaud's syndrome without gangr lizandro Loly Matr,DO 08/15/2020 G25.81 Restless legs syndrome Loly bowling,DO 08/15/2020 G89.29 Other chronic pain Loly Mart,D O 08/15/2020 F41.1 Generalized anxiety disorder Andrea Mart,DO 08/15/2020 F32.9 Major depressive disorder, singl e episode, unspecified Loly Mart,DO 08/15/2020 E78.5 Hyperlipidemia, unspecified Jesse a Brittny,DO 07/27/2020 G35 Multiple sclerosis Loly Mart,D O 07/27/2020 G35 Multiple sclerosis Lab Schedule 07/15/2020 I73.00 Raynaud's syndrome without gangr lizandro Loly Mart,DO 07/15/2020 G35 Multiple sclerosis Loly Mart,D O 07/15/2020 G25.81 Restless legs syndrome Loly bowling,DO 07/15/2020 G89.29 Other chronic pain Loly Mart,D O 07/15/2020 F41.1 Generalized anxiety disorder Andrea Mart,DO 07/15/2020 F32.9 Major depressive disorder, singl e episode, unspecified Loly Mart,DO 07/15/2020 R25.1 Tremor, unspecified Loly Mart, DO 06/30/2020 G35 Multiple sclerosis Loly Mart,D O 06/30/2020 G35 Multiple sclerosis Lab Schedule 06/27/2020 G35 Multiple sclerosis Loly Mart,D O 06/27/2020 I73.00 Raynaud's syndrome without gangr lizandro Loly Mart,DO 06/27/2020 G25.81 Restless legs syndrome Loly bowling,DO 06/27/2020 G89.29 Other chronic pain Loly Mart,D O 06/10/2020 I73.00 Raynaud's syndrome without gangr lizandro Loly Mart,DO 06/10/2020 G25.81 Restless legs syndrome Loly bowling,DO 06/10/2020 G89.29 Other chronic pain Loly Mart,D O 06/10/2020 F41.1 Generalized anxiety disorder Mendez ra Mart,DO 06/10/2020 G35 Multiple sclerosis Loly Mart,D O 04/29/2020 I73.00 Raynaud's syndrome without gangr lizandro Loly Mart,DO 04/29/2020 G25.81 Restless legs syndrome Loly Horta dash,DO 04/29/2020 G89.29 Other chronic pain Loly Mart,D O 04/29/2020 F32.9 Major depressive disorder, singl e episode, unspecified Loly Mart,DO 04/29/2020 F41.1 Generalized anxiety disorder Andrea Brittny,DO 04/29/2020 G35 Multiple sclerosis Loly Brittny,D O Plan of Treatment Future Appointment(s):* 02/14/2021 1:30 pm - Loly Mart DO at [facility] 08/15/2020 - Loly Mart DO* G35 Multiple sclerosis * I73.00 Raynaud's syndrome without gangrene * G25.81 Restless legs syndrome * G89.29 Other chronic pain * F41.1 Generalized anxiety disorder * F32.9 Major depressive disorder, single episode, unspecified * E78.5 Hyperlipidemia, unspecified * All * New Medication:* Duloxetine HCL 30 mg - 1 by mouth in evening Functional Status Description No Information Available Mental Status Description No Information Available Referrals Refer to Reason for Referral Status Appt Date [facility] Neuromuscular [facility] RED CAP CONSULT WITH DR FREY FOR MS Se nt [address] [facility] [place] [address] [phone] [facility] RED CAP CONSULT FOR MULTIPLE SCLERO SIS Sent [address] [place], [place] [address]za [address] [facility] [place] [address] [phone]
--- OUTSIDE RECORDS SUMMARY | 2020-11-07 19:01 | CCD | Continuity of Care Document ---
Author Author Verónica DE LA TORRE Organization Unknown Address [address] [facility] [address] [place] [address] Phone [phone] Care Team Providers Care Reception Interviewer Name Role Phone [facility] AUTM [phone] Loly De La Torre DO AUTM Unavailable Sara Romreo MD AUTM [phone] Dolly Hopkins NP AUTM [phone] [facility] AUTM [phone] [facility] AUTM Unavailable Problems Active Problems Provider Date Vitamin D deficiency Loly De La Torre DO Onset: 11/11/2012 Multiple sclerosis Loly De La Torre DO Onset: 11/11/2012 Social History Type Date Description Comments Sex Unknown ETOH Use Denies alcohol use Tobacco Use Start: Unknown Patient has never smoked Allergies, Adverse Reactions, Alerts Active Allergies Reaction Severity Comments Date Sulfa Nausea, GI Upset 12/13/2011 Medications Active Medications SIG Qnty Indications Ordering Provide r Date Duloxetine HCL 30mg Caps DR Prabha Roth by mouth in evening 90caps Loly De La Torre,DO 08/15/2020 Nitrofurantoin Monohyd Macro 100mg Capsules 1 by mouth twice a day x 7 days 14caps Loly bowling,DO 08/08/2020 Duloxetine HCL 60mg Caps DR Prabha Roth in am 60caps Loly De La Torre,DO 07/15/2020 Amlodipine Besylate 5mg Tablets 1 by mouth every day 30tabs oLly De La Torre,DO 06/10/2020 Ropinirole HCL 1mg Tablets one po bid 60tabs Loly De La TorreDO 04/29/2020 Naproxen 500mg Tablets 1 by mouth twice a day with food for 10 days then use only as needed 60tabs Loly De La Torre,DO 10/27/2018 Biotin Capsules 1 by mouth e very day Loly De La TorreDO 09/30/2017 Osteo Bi-Flex Tablets 1 every day by mouth Loly De La Torre,DO 01/05/2016 Vitamin D-3 1000Unit Capsules 1 by mouth every day 90caps Loly De La Torre,DO 07/06/2015 Cranberry Capsules 3 po qd Loly De La Torre,DO 12/02/2014 Probiotic Capsules 2 po qd Loly De La Torre,DO 11/11/2012 Tizanidine HCL 4mg Tablets 1 po Qid pain Loly De La Torre,DO 03/24/2010 Vitamin C 1000mg Tablets Loly De La Torre,DO 03/24/2010 Fish Oil 1200mg Loly De La Torre,DO 03/24/[address] 1 by mouth twice a day Unknown Atorvastatin Calcium 20mg Tablets 1 by mouth every day 90tabs Loly De La TorreDO Baclofen 5mg Tablets tid Unknown History Medications Amlodipine Besylate 2.5mg Tablets 1 by mouth every day 30tabs Loly De La TorreDO 03/24/2020 - Immunizations CPT Code Status Date Vaccine Lot # [id number] Refused 10/15/2018 Influenza Virus Vaccine, Quadrivalent ([id number]), [...] Date Facility Test Result H/L Range Note CBC With Differential 09/13/[address] [address] [phone] White Blood Count 6.9 10 Normal 4.0-10.0 [...] 36.0-66.0 Lymph % 9.8 % Low 24.0-44.0 [place]ba % 7.9 % High 0.0-5.0 Eos % 1.7 % Normal 0.0-3.0 Baso % 0.6 % Normal 0.0-1.0 Immature Granulocyte % 0.3 % Normal 0-3.0 Nucleated Red Blood Cell % 0.0 % Normal 0-0 Neutrophils # 5.5 10 Normal 1.5-8.5 Lymph # 0.7 10 Low 1.5-5.0 [place] # 0.5 10 Normal 0.0-0.8 Eos # 0.1 10 Normal 0.0-0.5 Baso # 0.0 10 Normal 0.0-0.2 Comprehensive Metabolic Profil 09/13/[address] [address] [phone] Glucose, Fasting 96 mg/dL Normal 70-100 Blood Urea Nitrogen 14 mg/dL Normal 7-18 Creatinine For GFR 0.61 mg/dL Normal 0.55-1.30 Glomerular Filtration Rate > 60.0 Normal >45 1 Sodium Level 138 mEq/L Normal 136-145 Potassium [...] Normal 3.2-5.2 Albumin/Globulin Ratio 1.4 Normal 1.2-2.2 Liver Profile 09/13/2020 [facility] [address] [place] [address] [phone] Bilirubin,Direct 0.2 mg/dL Normal 0.0-0.2 Laboratory test finding 09/13/2020 [facility] [address] [place] [address] [phone] Immunoglobulin A 211.0 mg/dL Normal 70-400 Hepatitis Profile 09/13/2020 [facility] [address] [place] [address] [phone] Hepatitis C Virus Brandi Index 0.1 INDEX Normal <0.8 2 Hepatitis B Surface Antigen NEGATIVE Normal Negative Hepatitis B Core Antibody Igm NEGATIVE Normal Negative Hepatitis A Antibody Igm NEGATIVE Normal Negative Laboratory test finding 09/13/[address] [address] [phone] Hepatitis B Surface Antibody NEGATIVE Normal Pos itive Vitamin B12 Level 548 pg/mL Normal 247-911 3 Folate 10.3 NG/ML Normal >5.4 4 Total 25(Oh) Vitamin D 23.5 NG/ML Low 30.0-100.0 HIV 1&2 Screen Centaur NEGATIVE Normal Negative 5 MAYRA Virus Brandi Stratify 08/15/[address] [address] [phone] Index Value 0.14 Normal . JCV Antibody Negative Normal . 6 Interpretation (SEE NOTE) Normal . 7 JCV Antibody By Inhibition TNP Normal . Interpretation (SEE NOTE) Normal . 8 Complete Blood Count 08/15/2020 [facility] Cofounder: [place] [address] [phone] WBC 6.8 x10*3/UL 4.1 - 10.9 RBC [...] 2.0 - 7.8 Comprehensive Chem Profile 08/15/2020 [facility] Cofounder: [place] [address] [phone] Glucose 93 mg/dL 74 - 99 9 BUN 16 mg/dL 7 - 18 Creatinine [...] mL/min >60 GFR >= 60 mL/min >60 10 Complete Blood Count 07/27/2020 [facility] Cofounder: [place] [address] [phone] WBC 6.4 x10*3/UL 4.1 - 10.9 RBC [...] 7.8 MAYRA Virus Dna PCR Whole Blood 07/27/2020 [place] [id number] [phone] MAYRA Virus Dna PCR Whole Blood Negative Normal Neg ative 11 MAYRA Virus Dna PCR Whole Blood 06/30/2020 [place] [address] [phone] MAYRA Virus Dna PCR Whole Blood Negative Normal Neg ative 12 Complete Blood Count 06/30/2020 [facility] Cofounder: [place] [address] [phone] WBC 6.0 x10*3/UL 4.1 - 10.9 13 RBC 4.47 x10*6/UL 4.20 - 6.30 Hemoglobin [...] 2.0 - 7.8 Comprehensive Chem Profile 06/30/2020 [facility] Cofounder: [place] [address] [phone] Glucose 83 mg/dL 74 - 99 14 BUN 22 mg/dL High 7 - 18 [...] mL/min >60 GFR >= 60 mL/min >60 15 Complete Blood Count 03/24/2020 [facility] Cofounder: [place] [address] [phone] WBC 5.4 x10*3/UL 4.1 - 10.9 16 RBC 4.71 x10*6/UL 4.20 - 6.30 Hemoglobin 14.6 g/dL 12.0 - 18.0 Hematocrit 42.6 % 37.0 - 51.0 MCV 90.5 fL 80.0 - 97.0 MCH 30.9 pg 26.0 - 32.0 MCHC 34.2 g/dL 31.0 - 38.0 RDW 12.3 % 11.6 - 13.7 PLT 322 x10*3/UL 140 - 440 MPV 7.8 FL 7.8 - 11.0 Lymph % 5.6 % Low 10.0 - 58.5 Mid % 5.8 % 1.7 - 9.3 Neut % 88.6 % 37.0 - 92.0 Lymph # 0.3 x10*3/UL Low 0.6 - 4.1 Mid # 0.3 x10*3/UL 0.1 - 0.6 Neut # 4.8 x10*3/UL 2.0 - 7.8 Comprehensive Chem Profile 03/24/2020 [facility] Cofounder: [place] [address] [phone] Glucose 89 mg/dL 74 - 99 17 BUN 10 mg/dL 7 - 18 Creatinine 0.5 mg/dL Low 0.6 - 1.3 Sodium 138 mEq/L 136 - 145 Potassium 4.4 mEq/L 3.5 - 5.1 Chloride 101 mEq/L 98 - 107 Carbon Dioxide 32 mEq/L 21 - 32 Calcium 9.0 mg/dL 8.5 - 10.1 Alk. Phosphatase 90 mg/dL 46 - 116 Total Bilirubin 0.5 mg/dL 0.2 - 1.0 Ast (Sgot) 14 U/L Low 15 - 37 Alt (SGPT) 24 U/L 12 - 78 Albumin 4.0 g/dL 3.4 - 5.0 Total Protein 7.1 g/dL 6.4 - 8.2 A/G Ratio 1.29 CALC 1.00 - 1.90 GFR >= 60 mL/min >60 GFR >= 60 mL/min >60 18 Lipid Profile 03/24/2020 [facility] , Cofounder: [place] [address] [phone] Cholesterol 201 mg/dL High 131 - 200 Triglycerides 50 mg/dL 30 - 150 HDL Cholesterol 66 mg/dL High 35 - 60 LDL (Calculated) 125 CALC 50 - 159 Manual Differential 03/24/2020 [facility] [address] [place], [place] [id number] [phone] Neutrophils 72 % High 28-66 Bands 1 % Normal < 11 Lymphocytes 8 % Low 16-44 Eosinophils 8 % High 0-3 Basophils 4 % High 0-1 Atypical Lymph 7 % High 0-5 RBC Morphology NORMAL Normal Platelet Estimate NORMAL Normal Normal 1 Units are mL/min/1.73 m2 Chronic Kidney Disease Staging per NKF: Stage I & II GFR >=60 Normal to Mildly Decreased Stage III GFR 30-59 Moderately Decreased Stage IV GFR 15-29 Severely Decreased Stage V GFR <15 Very Little GFR Left ESRD GFR <15 on RESIDENTIAL SALES 2 Negative Not infected with HCV, unless recent infection is suspected or other evidence exists to indicate HCV infection. 3 VITAMIN B12 NORMAL RANGE NORMAL 247 - 911 PG/ML INDETERMINATE 211 - 246 PG/ML DEFICIENT LESS THAN 211 PG/ML 4 FOLATE NORMAL RANGE NORMAL GREATER THAN 5.4 NG/ML INDETERMINATE 3.4-5.4 NG/ML DEFICIENT LESS THAN 3.4 NG/ML 5 This assay was performed uti lizing a chemiluminescent principle technique for the simultaneous qualitative detection of HIV-1 p24 antigen & antibodies to HIV-1 (including group O) & HIV-2 using the [employer] (RIS) system. The estimated 95% confidence interval for sensitivity of this antigen/antibody combination assay for HIV-1&2 antibodies is 99.7-100% and HIV p24 antigen is 89.4-99.9%. The estimated 95% confidence interval for specificity of this antigen/antibody combination in low risk populations is 99.6-99.8%. 6 Index interpretive criteria: <0.20 negative 0.20-0.40 indeterminate >0.40 positive 7 . Negative: Antibodies to JCV not detected. [...] index.1 . 1TYSABRI (natalizumab) [place] Prescribing Information. 8 . Positive: Antibodies to MAYRA virus (JCV) detected indicating the patient has been exposed to JCV at an undetermined time Negative: Antibodies to JCV not detected Performed at: [facility] [id number] [place] [id number] Cofounder: Farooq Askew MD, Phone: [phone] Performed at: [facility] [id number] Cofounder: Vale Kilpatrick MD, Phone: [phone] 9 100-125 mg/dL PRE-DIABET ES/FASTING >126 mg/dL DIABETES/FASTING 10 CHRONIC KIDNEY DISEASE STAGI NG PER NKF STAGE I & II GFR >= 60 NORMAL TO MILDLY DECREASED STAGE III GFR 30-59 MODERATELY DECREASED STAGE IV GFR 15-29 SEVERELY DECREASED STAGE V GFR <15 VERY LITTLE GFR LEFT ESRD GFR <15 ON RESIDENTIAL SALES 11 No JCV DNA detected This test was developed and its performance characteristics determined by [employer]. It has not been cleared or approved by the Food and Drug Administration. The FDA has determined that such clearance or approval is not necessary. Performed at: [address] [id number] Cofounder: Grupo Silvestre MD, Phone: [phone] No JCV DNA detected This test was developed and its performance characteristics determined by [employer]. It has not been cleared or approved by the Food and Drug Administration. The FDA has determined that such clearance or approval is not necessary. Performed at: [facility] [address] [id number] Cofounder: Grupo Silvestre MD, Phone: [phone] NOTE: RESULT VERIFIED. 14 100-125 mg/dL PRE-DIABET ES/FASTING >126 mg/dL DIABETES/FASTING 15 CHRONIC KIDNEY DISEASE STAGI NG PER NKF STAGE I & II GFR >= 60 NORMAL TO MILDLY DECREASED STAGE III GFR 30-59 MODERATELY DECREASED STAGE IV GFR 15-29 SEVERELY DECREASED STAGE V GFR <15 VERY LITTLE GFR LEFT ESRD GFR <15 ON RESIDENTIAL SALES 16 NOTE: MANUAL DIFFERENTIAL SENT TO [facility] FOR VERIFICATION. 17 100-125 mg/dL PRE-DIABET ES/FASTING >126 mg/dL DIABETES/FASTING 18 CHRONIC KIDNEY DISEASE STAGI NG PER NKF STAGE I & II GFR >= 60 NORMAL TO MILDLY DECREASED STAGE III GFR 30-59 MODERATELY DECREASED STAGE IV GFR 15-29 SEVERELY DECREASED STAGE V GFR <15 VERY LITTLE GFR LEFT ESRD GFR <15 ON RESIDENTIAL SALES Procedures Date Code Description Status 06/02/2018 [id number] Mammogram Completed 02/06/2017 [id number] Bone Mineral Density Test Comple anaid 11/22/2016 [id number] Mammogram Completed 08/06/2014 [id number] Mammogram Completed 04/03/2013 [id number] Colonoscopy Completed 08/08/2012 [id number] Mammogram Completed 08/29/2010 [id number] Mammogram Completed 03/03/2009 [id number] Bone Mineral Density Test Comple [employer] Description No Information Available Encounters Type Date Location Provider Dx Diagnosis Office Visit 08/15/2020 1:45p [place] [facility] DO G35 Multiple sclerosis I73.00 Raynaud's syndrome without g angrene G25.81 Restless legs syndrome G89.29 Other chronic pain F41.1 Generalized anxiety disorder F32.9 Major depressive disorder, s jimmy episode, unspecified E78.5 Hyperlipidemia, unspecified Office Visit 07/15/2020 2:15p [facility] DO I73.00 Raynaud's syndrome without gangrene G35 Multiple sclerosis G25.81 Restless legs syndrome G89.29 Other chronic pain F41.1 Generalized anxiety disorder F32.9 Major depressive disorder, s jimmy episode, unspecified R25.1 Tremor, unspecified Office Visit 06/10/2020 3:00p [facility] DO I73.00 Raynaud's syndrome without gangrene G25.81 Restless legs syndrome G89.29 Other chronic pain F41.1 Generalized anxiety disorder G35 Multiple sclerosis Office Visit 04/29/2020 2:45p [facility] tr[facility] DO I73.00 Raynaud's syndrome without gangrene G25.81 Restless legs syndrome G89.29 Other chronic pain F32.9 Major depressive disorder, s jimmy episode, unspecified F41.1 Generalized anxiety disorder G35 Multiple sclerosis Office Visit 03/24/2020 2:15p [facility] tr[facility] DO G89.29 Other chronic pain I73.00 Raynaud's syndrome without g angrene F32.9 Major depressive disorder, s jimmy episode, unspecified F41.1 Generalized anxiety disorder E78.5 Hyperlipidemia, unspecified Assessments Date Code Description Provider 08/15/2020 G35 Multiple sclerosis Loly De La Torre,D O 08/15/2020 I73.00 Raynaud's syndrome without gangr lizandro Loly Brittny,DO 08/15/2020 G25.81 Restless legs syndrome Loly Bog gs,DO 08/15/2020 G89.29 Other chronic pain Loly De La Torre,D O 08/15/2020 F41.1 Generalized anxiety disorder Mendez ra Brittny,DO 08/15/2020 F32.9 Major depressive disorder, singl e episode, unspecified Loly Brittny,DO 08/15/2020 E78.5 Hyperlipidemia, unspecified Jesse a Brittny,DO 07/27/2020 G35 Multiple sclerosis Loly Brittny,D O 07/27/2020 G35 Multiple sclerosis Lab Schedule 07/15/2020 I73.00 Raynaud's syndrome without gangr lizandro Loly Brittny,DO 07/15/2020 G35 Multiple sclerosis Loly Brittny,D O 07/15/2020 G25.81 Restless legs syndrome Loly Bog gs,DO 07/15/2020 G89.29 Other chronic pain Loly De La Torre,D O 07/15/2020 F41.1 Generalized anxiety disorder Mendez ra Brittny,DO 07/15/2020 F32.9 Major depressive disorder, singl e episode, unspecified Loly Brittny,DO 07/15/2020 R25.1 Tremor, unspecified Loly Brittny, DO 06/30/2020 G35 Multiple sclerosis Loly Brittny,D O 06/30/2020 G35 Multiple sclerosis Lab Schedule 06/27/2020 G35 Multiple sclerosis Loly Brittny,D O 06/27/2020 I73.00 Raynaud's syndrome without gangr lizandro Loly Brittny,DO 06/27/2020 G25.81 Restless legs syndrome Loly Bog gs,DO 06/27/2020 G89.29 Other chronic pain Loly Brittny,D O 06/10/2020 I73.00 Raynaud's syndrome without gangr lizandro Loly Brittny,DO 06/10/2020 G25.81 Restless legs syndrome Loly Bog gs,DO 06/10/2020 G89.29 Other chronic pain Loly Brittny,D O 06/10/2020 F41.1 Generalized anxiety disorder Mendez ra Brittny,DO 06/10/2020 G35 Multiple sclerosis Loly Brittny,D O 04/29/2020 I73.00 Raynaud's syndrome without gangr lizandro Loly De La Torre,DO 04/29/2020 G25.81 Restless legs syndrome Loly Mychal bowling,DO 04/29/2020 G89.29 Other chronic pain Loly Brittny,D O 04/29/2020 F32.9 Major depressive disorder, singl e episode, unspecified Loly De La Torre,DO 04/29/2020 F41.1 Generalized anxiety disorder Andrea De La Torre,DO 04/29/2020 G35 Multiple sclerosis Loly Brittny,D O 03/24/2020 G89.29 Other chronic pain Loly Brittny,D O 03/24/2020 I73.00 Raynaud's syndrome without gangr lizandro Loly De La Torre,DO 03/24/2020 F32.9 Major depressive disorder, singl e episode, unspecified Loly De La Torre,DO 03/24/2020 F41.1 Generalized anxiety disorder Andrea De La Torre,DO 03/24/2020 E78.5 Hyperlipidemia, unspecified Jesse De La Torre DO Plan of Treatment Future Appointment(s):* 09/20/2020 1:40 pm - Nurse Schedule at [facility] * 02/14/2021 1:30 pm - Loly De La Torre DO at [facility] 08/15/2020 - Loly De La Torre DO* G35 Multiple sclerosis * I73.00 Raynaud's [...] to Reason for Referral Status Appt Date [facility] EXPORT CLERK CONSULT WITH DR FREY FOR MS Se nt [address] [address] [phone] [facility] EXPORT CLERK CONSULT FOR MULTIPLE SCLERO SIS Sent [address] [place], [place] [address] [address] [phone]
--- OUTSIDE RECORDS SUMMARY | 2020-11-07 19:01 | CCD | Continuity of Care Document ---
Author Author Verónica DE LA TORRE Organization Unknown Address [address] [facility] [address] [place] [address] Phone [phone] Care Team Providers Care Felt Hat Flanging Operator Name Role Phone [facility] AUTM [phone] Loly De La Torre DO AUTM Unavailable Sara Romero MD AUTM [phone] Dolly Hopkins NP AUTM [phone] [facility] AUTM [phone] Problems Active Problems Provider Date Vitamin D [...] mouth every day 30tabs Loly De La Torre,DO 06/10/2020 Ropinirole HCL 1mg Tablets one po bid 60tabs Loly De La Torre,DO 04/29/2020 Naproxen 500mg Tablets 1 by mouth [...] mouth every day 90tabs Loly De La Torre,DO Baclofen 5mg Tablets tid Unknown History Medications Amlodipine Besylate 2.5mg Tablets 1 by mouth every day 30tabs Loly De La TorreDO 03/24/2020 - Immunizations CPT Code Status Date Vaccine Lot # 22278 Refused 10/15/2018 Influenza Virus Vaccine, Quadrivalent (Cciiv4), [...] Test Result H/L Range Note MAYRA Virus Brandi Stratify 08/15/2020 [facility] [address] [place] [address] [phone] Index Value 0.14 Normal . JCV Antibody Negative Normal . 1 Interpretation (SEE NOTE) Normal . 2 JCV Antibody By Inhibition TNP Normal . Interpretation (SEE NOTE) Normal . 3 Complete Blood Count 08/15/2020 [facility] Rag Inspector: Dr Trevon Morillologg [place], [place] [id number] [phone] WBC 6.8 x10*3/UL 4.1 - 10.9 RBC [...] 2.0 - 7.8 Comprehensive Chem Profile 08/15/2020 [facility] Rag Inspector: Dr Trevon Steve [place], [place] [id number] [phone] Glucose 93 mg/dL 74 - 99 4 BUN 16 mg/dL 7 - 18 Creatinine [...] mL/min >60 GFR >= 60 mL/min >60 5 MAYRA Virus Dna PCR Whole Blood 07/27/2020 [facility] [address] [place] [address] [phone] MAYRA Virus Dna PCR Whole Blood Negative Normal Neg ative 6 Complete Blood Count 07/27/2020 [facility] Rag Inspector: [place] [address] [phone] WBC 6.4 x10*3/UL 4.1 - 10.9 RBC [...] MAYRA Virus Dna PCR Whole Blood 06/30/2020 [facility] [address] [place] [address] [phone] MAYRA Virus Dna PCR Whole Blood Negative Normal Neg ative 7 Complete Blood Count 06/30/2020 [facility] Rag Inspector: [place] [address] [phone] WBC 6.0 x10*3/UL 4.1 - 10.9 8 RBC 4.47 x10*6/UL 4.20 - 6.30 Hemoglobin [...] 2.0 - 7.8 Comprehensive Chem Profile 06/30/2020 [facility] Rag Inspector: [place] [address] [phone] Glucose 83 mg/dL 74 - 99 9 BUN 22 mg/dL High 7 - 18 [...] 60 mL/min >60 10 Complete Blood Count 03/24/2020 [facility] Rag Inspector: [place] [address] [phone] WBC 5.4 x10*3/UL 4.1 - 10.9 11 RBC 4.71 x10*6/UL 4.20 - 6.30 Hemoglobin [...] 2.0 - 7.8 Comprehensive Chem Profile 03/24/2020 [facility] Rag Inspector: [place] [address] [phone] Glucose 89 mg/dL 74 - 99 12 BUN 10 mg/dL 7 - 18 Creatinine [...] mL/min >60 GFR >= 60 mL/min >60 13 Lipid Profile 03/24/2020 [facility] , Rag Inspector: [place] [address] [phone] Cholesterol 201 mg/dL High 131 - 200 Triglycerides 50 mg/dL 30 - 150 HDL Cholesterol 66 mg/dL High 35 - 60 LDL (Calculated) 125 CALC 50 - 159 Manual Differential 03/24/2020 [facility] [address] [place] [address] [phone] Neutrophils 72 % High 28-66 Bands 1 % Normal < 11 Lymphocytes 8 % Low 16-44 Eosinophils 8 % High 0-3 Basophils 4 % High 0-1 Atypical Lymph 7 % High 0-5 RBC Morphology NORMAL Normal Platelet Estimate NORMAL Normal Normal 1 Index interpretive criteria: <0.20 negative 0.20-0.40 indeterminate >0.40 positive 2 . Negative: Antibodies to JCV not detected. [...] index.1 . 1TYSABRI (natalizumab) US Prescribing Information. 3 . Positive: Antibodies to MAYRA virus (JCV) detected indicating the patient has been exposed to JCV at an undetermined time Negative: Antibodies to JCV not detected Performed at: [facility] [address] [place] [id number] Rag Inspector: Farooq Askew MD, Phone: [phone] Performed at: RN - [facility] [address] [id number] Rag Inspector: Vale Kilpatrick MD, Phone: [phone] 4 100-125 mg/dL PRE-DIABET ES/FASTING >126 mg/dL DIABETES/FASTING 5 CHRONIC KIDNEY DISEASE STAGI NG PER NKF STAGE I & II GFR >= 60 NORMAL TO MILDLY DECREASED STAGE III GFR 30-59 MODERATELY DECREASED STAGE IV GFR 15-29 SEVERELY DECREASED STAGE V GFR <15 VERY LITTLE GFR LEFT ESRD GFR <15 ON MANAGER LINUX 6 No JCV DNA detected This test was developed and its performance characteristics determined by [facility]. It has not been cleared or approved by the Food and Drug Administration. The FDA has determined that such clearance or approval is not necessary. Performed at: [facility] [address] [id number] Rag Inspector: Grupo Silvestre MD, Phone: [phone] 7 No JCV DNA detected This test was developed and its performance characteristics determined by [facility]. It has not been cleared or approved by the Food and Drug Administration. The FDA has determined that such clearance or approval is not necessary. Performed at: - [facility] [id number] Rag Inspector: Grupo Silvestre MD, Phone: [phone] NOTE: RESULT VERIFIED. 9 100-125 mg/dL PRE-DIABET ES/FASTING >126 mg/dL DIABETES/FASTING 10 CHRONIC KIDNEY DISEASE STAGI NG PER NKF STAGE I & II GFR >= 60 NORMAL TO MILDLY DECREASED STAGE III GFR 30-59 MODERATELY DECREASED STAGE IV GFR 15-29 SEVERELY DECREASED STAGE V GFR <15 VERY LITTLE GFR LEFT ESRD GFR <15 ON MANAGER LINUX 11 NOTE: MANUAL DIFFERENTIAL SENT TO [facility] FOR VERIFICATION. 12 100-125 mg/dL PRE-DIABET ES/FASTING >126 mg/dL DIABETES/FASTING 13 CHRONIC KIDNEY DISEASE STAGI NG PER NKF STAGE I & II GFR >= 60 NORMAL TO MILDLY DECREASED STAGE III GFR 30-59 MODERATELY DECREASED STAGE IV GFR 15-29 SEVERELY DECREASED STAGE V GFR <15 VERY LITTLE GFR LEFT ESRD GFR <15 ON MANAGER LINUX Procedures Date Code Description Status 06/02/2018 [id number] Mammogram Completed 02/06/2017 [id number] Bone Mineral Density Test Comple anaid 11/22/2016 [id number] Mammogram Completed 08/06/2014 [id number] Mammogram Completed 04/03/2013 [id number] Colonoscopy Completed 08/08/2012 [id number] Mammogram Completed 08/29/2010 [id number] Mammogram Completed 03/03/2009 [id number] Bone Mineral Density Test Comple [facility] Description No Information Available Encounters Type Date Location Provider Dx Diagnosis Office Visit 07/15/2020 2:[facility]p [facility] DO I73.00 Raynaud's syndrome without gangrene G35 Multiple sclerosis G25.81 Restless legs syndrome G89.29 Other chronic pain F41.1 Generalized anxiety disorder F32.9 Major depressive disorder, s jimmy episode, unspecified R25.1 Tremor, unspecified Office Visit 06/10/2020 3:00p [facility], Akosua De La Torre ,DO I73.00 Raynaud's syndrome without gangrene G25.81 Restless legs syndrome G89.29 Other chronic pain F41.1 Generalized anxiety disorder G35 Multiple sclerosis Office Visit 04/29/2020 2:45p [facility], Akosua De La Torre ,DO I73.00 Raynaud's syndrome without gangrene G25.81 Restless legs syndrome G89.29 Other chronic pain F32.9 Major depressive disorder, s jimmy episode, unspecified F41.1 Generalized anxiety disorder G35 Multiple sclerosis Office Visit 03/24/2020 2:15p [facility], Akosua De La Torre ,DO G89.29 Other chronic pain I73.00 Raynaud's syndrome without g angrene F32.9 Major depressive disorder, s jimmy episode, unspecified F41.1 Generalized anxiety disorder E78.5 Hyperlipidemia, unspecified Assessments Date Code Description Provider 08/15/2020 G35 Multiple sclerosis Durga Sandoval O 08/15/2020 I73.00 Raynaud's syndrome without gangr lizandro Loly De La Torre,DO 08/15/2020 G25.81 Restless legs syndrome Loly bowling,DO 08/15/2020 G89.29 Other chronic pain Durga Sandoval O 08/15/2020 F41.1 Generalized anxiety disorder Andrea De La Torre,DO 08/15/2020 F32.9 Major depressive disorder, singl e episode, unspecified Loly De La Torre,DO 08/15/2020 E78.5 Hyperlipidemia, unspecified Jesse De La Torre,DO 07/27/2020 G35 Multiple sclerosis Durga Sandoval O 07/27/2020 G35 Multiple sclerosis Lab Schedule 07/15/2020 I73.00 Raynaud's syndrome without gangr lizandro Loly De La Torre,DO 07/15/2020 G35 Multiple sclerosis Durga Sandoval O 07/15/2020 G25.81 Restless legs syndrome Loly bowling,DO 07/15/2020 G89.29 Other chronic pain Loly Brittny,D O 07/15/2020 F41.1 Generalized anxiety disorder Mendez [...] Raynaud's syndrome without gangr lizandro Loly Brittny,DO 04/29/2020 G25.81 Restless legs syndrome Loly Bog gs,DO 04/29/2020 G89.29 Other chronic pain Loly Brittny,D O 04/29/2020 F32.9 Major depressive disorder, singl e episode, unspecified Loly Brittny,DO 04/29/2020 F41.1 Generalized anxiety disorder Mendez ra Brittny,DO 04/29/2020 G35 Multiple sclerosis Loly Brittny,D O 03/24/2020 G89.29 Other chronic pain Loly Brittny,D O 03/24/2020 I73.00 Raynaud's syndrome without gangr lizandro Loly Brittny,DO 03/24/2020 F32.9 Major depressive disorder, singl e episode, unspecified Loly Brittny,DO 03/24/2020 F41.1 Generalized anxiety disorder Mendez ra Brittny,DO 03/24/2020 E78.5 Hyperlipidemia, unspecified Jesse De La Torre,DO 03/14/2020 G89.29 Other chronic pain Durga Sandoval O 03/14/2020 I73.00 Raynaud's syndrome without gangr lizandro Loly De La Torre, 03/14/2020 F32.9 Major depressive disorder, singl e episode, unspecified Loly De La Torre, 03/14/2020 E78.5 Hyperlipidemia, unspecified Jesse De La Torre DO Plan of Treatment Future Appointment(s):* 02/14/2021 1:30 pm - Loly De La Torre DO at [facility] 08/15/2020 - Loly De La [...] Description No Information Available Referrals Refer to Dr Reason for Referral Status Appt Date [facility] INTERACTIVE DIGITAL MEDIA SPECIALIST CONSULT WITH DR FREY FOR MS Se nt [address] [place] [address] [phone] [facility] INTERACTIVE DIGITAL MEDIA SPECIALIST CONSULT FOR MULTIPLE SCLERO SIS Sent [address] [place] [address] [phone]
--- OUTSIDE RECORDS SUMMARY | 2020-11-07 19:01 | CCD | Continuity of Care Document ---
Author Author Verónica GERMAN DPM Organization Unknown Address [address] [place] [address], [facility] [address] [place] [address] Phone [phone] Care Team Providers Care Photostat Operator Name Role Phone Linda Akers M.D. [phone] Problems Active Problems Provider Date Acquired hallux rigidus Parag German DPM Onset: 09/08/20 14 Acquired hallux valgus Parag German DPM Onset: 4 Onychomycosis Parag German DPM Onset: 09/08/2014 Multiple sclerosis Mckinley German DPM Onset: 12/20/2016 Peripheral vascular disease Mckinley German DPM Onset: 09/25 Social History Type Date Description Comments Sex Unknown ETOH Use Denies alcohol use Tobacco Use Start: Unknown Patient has never smoked Allergies, Adverse Reactions, Alerts Active Allergies Reaction Severity Comments Date Sulfa Antibiotics irritates stomach when taken 09/08/2014 Medications Active Medications SIG Qnty Indications Ordering Provide r Date Diclofenac Sodium 1% Gel apply 1 gram to feet 2-3 times daily 500units Mckinley German DPM 2019 Gabapentin 100mg Capsules Take One Capsule By Mouth Three Times A Day 90caps Mckinley German DPM 08/11/2018 Paroxetine HCL 40mg Tablets Loly Mart MD Tizanidine HCL 4mg Tablets Unknown Tecfidera 240mg Capsules DR Welch Amlodipine Besylate 2.5mg Tablets Take One Tablet By Mouth Every Day Unknown Naproxen 500mg Tablets Take One Tablet By Mouth Twice A Day With Food For 10 Days Then Only as Needed Unknown Hydrocodone-Acetaminophen 5-325mg Tablets Take One Tablet By Mouth Every 4 To 6 Hours as Needed For Pain Maximum Daily Dose5 Unknown Amoxicillin 500mg Capsules Take One Capsule By Mouth Every 8 Hours Unknown 0 SM Aspirin Adult Low Strength 81mg Tablets DR Take One Tablet By Mouth Every Day Unknow n Fluconazole 150mg Tablets Take One Tablet By Mouth May Repeat In 3 Days Unknown Lyrica 50mg Capsules Take One Capsule By Mouth Twice A Day Maximum Daily Dose 2 Unknown Atorvastatin Calcium 20mg Tablets Take One Tablet By Mouth Every Day Unknown Paroxetine HCL 40mg Tablets Take One Tablet By Mouth AT Night Unknown 000 Baclofen 10mg Tablets Take One To Two Tablets By Mouth Up To Three Times A Day as Needed For Spasticity Unknown Tysabri Unknown Tamsulosin HCL 0.4mg Capsules Unknown Prednisone 10mg Tablets Unknown Amoxicillin/Clavulanate Potassium 875-125mg Tablets Unknown Vitamin D (Ergocalciferol) 62590Akkw Capsules Unknown Fluoxetine HCL 40mg Capsules Unknown Terconazole 0.8% Cream Unknown Nitrofurantoin Monohyd Macro 100mg Capsules Unknown Rebif 44mcg/0.5ML Solution Unknown Ampicillin 250mg Capsules Unknown Tizanidine HCL 4mg Tablets Unknown History Medications Diclofenac Sodium 3% Gel apply 1 gram to feet 2-3 times daily 100gm Mckinley German DPM 2019 - 04/28/2020 Immunizations Description No Information Available Vital Signs Date Vital Result Comment 02/01/2016 1:45pm Height 65 inches 5'5" Weight 140.00 lb BP Systolic 98 mmHg BP Diastolic 58 mmHg Heart Rate 64 /min BMI (Body Mass Index) 23.3 kg/m2 09/08/2014 2:28pm Height 66 inches 5'6" Weight 140.00 lb BP Systolic 110 mmHg BP Diastolic 62 mmHg BMI (Body Mass Index) 22.6 kg/m2 Results Description No Information Available Procedures Date Code Description Status 08/24/2020 43978 Debridement 6-10 Nails Electric Completed 03/23/2020 38334 Debridement 6-10 Nails Electric Completed Medical Devices Description No Information Available Encounters Description No Information Available Assessments Date Code Description Provider 08/24/2020 B35.1 Tinea unguium Mckinley German DPM 08/24/2020 I73.89 Other specified peripheral vascu lar diseases Mckinley German DPM 03/23/2020 B35.1 Tinea unguium Mckinley German DPM 03/23/2020 I73.89 Other specified peripheral vascu lar diseases Mckinley German DPM Plan of Treatment Future Appointment(s):* 11/02/2020 3:15 pm - Mckinley German DPM at [place] [facility] Functional Status Description No Information Available Mental Status Description No Information Available Referrals Description No Information Available
--- OUTSIDE RECORDS SUMMARY | 2020-11-07 19:01 | CCD | Continuity of Care Document ---
Author Author Verónica GERMAN DPM Organization Unknown Address [address] [place] [address], [facility] [address] [place] [address] Phone [phone] Care Team Providers Care Wood Carver Name Role Phone Linda Akers M.D. [phone] Problems Active Problems Provider Date Acquired hallux [...] Potassium 875-125mg Tablets Unknown Vitamin D (Ergocalciferol) 64892Snmc Capsules Unknown Fluoxetine HCL 40mg Capsules Unknown [...] Information Available Procedures Date Code Description Status 03/23/2020 59305 Debridement 6-10 Nails Electric Completed Medical Devices Description No Information Available Encounters Description No Information Available Assessments Date Code Description Provider 03/23/2020 B35.1 Tinea unguium Mckinley German DPM 03/23/2020 I73.89 Other specified peripheral vascu lar diseases Mckinley German DPM Plan of Treatment Future Appointment(s):* 11/02/2020 3:15 pm - Mckinley German DPM at [facility] Functional Status Description No Information Available Mental Status Description No Information Available Referrals Description No Information Available
--- OUTSIDE RECORDS SUMMARY | 2020-11-07 19:01 | CCD | Continuity of Care Document ---
Author Author Verónica MART Organization Unknown Address [address] [facility] [address] [place] [address] Phone [phone] Care Team Providers Care Recreation Adviser Name Role Phone [facility] AUTM [phone] Loly Mart DO AUTM Unavailable Sara Romero MD AUTM [phone] Dolly Hopkins NP AUTM [phone] [facility] AUTM [phone] [facility] AUTM Unavailable Problems Active Problems Provider [...] CPT Code Status Date Vaccine Lot # [id number] Refused 10/15/2018 Influenza Virus Vaccine, Quadrivalent (Cciiv4), [...] H/L Range Note CBC With Differential 09/13/[address] [address] [phone] White Blood Count 6.9 10 Normal 4.0-10.0 [...] 36.0-66.0 Lymph % 9.8 % Low 24.0-44.0 [place] % 7.9 % High 0.0-5.0 Eos % 1.7 % Normal 0.0-3.0 Baso % 0.6 % Normal 0.0-1.0 Immature Granulocyte % 0.3 % Normal 0-3.0 Nucleated Red Blood Cell % 0.0 % Normal 0-0 Neutrophils # 5.5 10 Normal 1.5-8.5 Lymph # 0.7 10 Low 1.5-5.0 [place] # 0.5 10 Normal 0.0-0.8 Eos # 0.1 10 Normal 0.0-0.5 Baso # 0.0 10 Normal 0.0-0.2 Comprehensive Metabolic Profil 09/13/[address] [address] [phone] Glucose, Fasting 96 mg/dL Normal 70-100 Blood [...] Ratio 1.4 Normal 1.2-2.2 Liver Profile 09/13/2020 [facility] nter [address] [place], [place] [id number] [phone] Bilirubin,Direct 0.2 mg/dL Normal 0.0-0.2 Laboratory test finding 09/13/2020 [facility] [address] [place] [address] [phone] Immunoglobulin A 211.0 mg/dL Normal 70-400 Hepatitis Profile 09/13/2020 [facility] [address] [place] [address] [phone] Hepatitis C Virus Brandi Index 0.1 INDEX Normal <0.8 2 Hepatitis B Surface Antigen NEGATIVE Normal Negative Hepatitis B Core Antibody Igm NEGATIVE Normal Negative Hepatitis A Antibody Igm NEGATIVE Normal Negative Laboratory test finding 09/13/2020 [facility] [address] [place] [address] [phone] Hepatitis B Surface Antibody NEGATIVE Normal Pos itive Vitamin B12 Level 548 pg/mL Normal 247-911 3 Folate 10.3 NG/ML Normal >5.4 4 Total 25(Oh) Vitamin D 23.5 NG/ML Low 30.0-100.0 HIV 1&2 Screen [facility] NEGATIVE Normal Negative 5 Miscellaneous Test Lab See Separate Rep <SEE NOTE> Normal 6 MAYRA Virus Brandi Stratify 08/15/[address] [address] [phone] Index Value 0.14 Normal . JCV Antibody Negative Normal . 7 Interpretation (SEE NOTE) Normal . 8 JCV Antibody By Inhibition TNP Normal . Interpretation (SEE NOTE) Normal . 9 Complete Blood Count 08/15/2020 [facility] Power Manager: [place] [address] [phone] WBC 6.8 x10*3/UL 4.1 - 10.9 RBC [...] 2.0 - 7.8 Comprehensive Chem Profile 08/15/2020 [facility] Power Manager: [place] [address] [phone] Glucose 93 mg/dL 74 - 99 10 BUN 16 mg/dL 7 - 18 Creatinine [...] mL/min >60 GFR >= 60 mL/min >60 11 MAYRA Virus Dna PCR Whole Blood 07/27/2020 [facility] [address] [place] [address] [phone] MAYRA Virus Dna PCR Whole Blood Negative Normal Neg ative 12 Complete Blood Count 07/27/2020 [facility] Power Manager: [place] [address] [phone] WBC 6.4 x10*3/UL 4.1 - 10.9 RBC [...] MAYRA Virus Dna PCR Whole Blood 06/30/[address] [id number] [phone] MAYRA Virus Dna PCR Whole Blood Negative Normal Neg ative 13 Complete Blood Count 06/30/2020 [facility] Power Manager: [place] [address] [phone] WBC 6.0 x10*3/UL 4.1 - 10.9 14 RBC 4.47 x10*6/UL 4.20 - 6.30 Hemoglobin [...] 2.0 - 7.8 Comprehensive Chem Profile 06/30/2020 [facility] Power Manager: Dr Trevon Steve [place], [place] [id number] [phone] Glucose 83 mg/dL 74 - 99 15 BUN 22 mg/dL High 7 - 18 [...] mL/min >60 GFR >= 60 mL/min >60 16 1 Units are mL/min/1.73 m2 Chronic Kidney Disease Staging per NKF: Stage I & II GFR >=60 Normal to Mildly Decreased Stage III GFR 30-59 Moderately Decreased Stage IV GFR 15-29 Severely Decreased Stage V GFR <15 Very Little GFR Left ESRD GFR <15 on HOT DIP TINNING SUPERVISOR 2 Negative Not infected with HCV, unless [...] (including group O) & HIV-2 using the [employer] system. The estimated 95% confidence interval for sensitivity of this antigen/antibody combination assay for HIV-1&2 antibodies is 99.7-100% and HIV p24 antigen is 89.4-99.9%. The estimated 95% confidence interval for specificity of this antigen/antibody combination in low risk populations is 99.6-99.8%. 6 See Separate Report Testing performed at reference lab . Report copy to follow on a separate form. 09/23/20 REF LAB#:[id number] Order this test in the future with mneumonic [] . Silverman = [] , CPT CODES = []. Sample was sent to [] . Specimen requirements are [] . Please call the lab with any other questions. 7 Index interpretive criteria: <0.20 negative 0.20-0.40 indeterminate >0.40 positive 8 . Negative: Antibodies to JCV not detected. [...] index.1 . 1TYSABRI (natalizumab) [place] Prescribing Information. 9 . Positive: Antibodies to MAYRA virus (JCV) detected indicating the patient has been exposed to JCV at an undetermined time Negative: Antibodies to JCV not detected Performed at: [facility] [address] [place], [place] [id number] Power Manager: Farooq Askew MD, Phone: [phone] Performed at: RN - [facility] [address] [id number] Power Manager: Vale Kilpatrick MD, Phone: [phone] 10 100-125 mg/dL PRE-DIABET ES/FASTING >126 mg/dL DIABETES/FASTING 11 CHRONIC KIDNEY DISEASE STAGI NG PER NKF STAGE I & II GFR >= 60 NORMAL TO MILDLY DECREASED STAGE III GFR 30-59 MODERATELY DECREASED STAGE IV GFR 15-29 SEVERELY DECREASED STAGE V GFR <15 VERY LITTLE GFR LEFT ESRD GFR <15 ON HOT DIP TINNING SUPERVISOR 12 No JCV DNA detected This test was developed and its performance characteristics determined by [employer]. It has not been cleared or approved by the Food and Drug Administration. The FDA has determined that such clearance or approval is not necessary. Performed at: - [address] [id number] Power Manager: Grupo Silvestre MD, Phone: [phone] 13 No JCV DNA detected This test was developed and its performance characteristics determined by [facility]. It has not been cleared or approved by the Food and Drug Administration. The FDA has determined that such clearance or approval is not necessary. Performed at: - [facility] [id number] Power Manager: Grupo Silvestre MD, Phone: [phone] NOTE: RESULT VERIFIED. 15 100-125 mg/dL PRE-DIABET ES/FASTING >126 mg/dL DIABETES/FASTING 16 CHRONIC KIDNEY DISEASE STAGI NG PER NKF STAGE I & II GFR >= 60 NORMAL TO MILDLY DECREASED STAGE III GFR 30-59 MODERATELY DECREASED STAGE IV GFR 15-29 SEVERELY DECREASED STAGE V GFR <15 VERY LITTLE GFR LEFT ESRD GFR <15 ON HOT DIP TINNING SUPERVISOR Procedures Date Code Description Status 06/02/2018 [id number] Mammogram Completed 02/06/2017 [id number] Bone Mineral Density Test Comple [facility] 11/22/2016 [id number] Mammogram Completed 08/06/2014 [id number] Mammogram Completed 04/03/2013 [id number] Colonoscopy Completed 08/08/2012 [id number] Mammogram Completed 08/29/2010 [id number] Mammogram Completed 03/03/2009 [id number] Bone Mineral Density Test Comple [facility] Medical Devices Description No Information Available Encounters Type Date Location Provider Dx Diagnosis Office Visit 08/15/2020 1:45p [facility] Mart DO G35 Multiple sclerosis I73.00 Raynaud's syndrome without g angrene G25.81 Restless legs syndrome G89.29 Other chronic pain F41.1 Generalized anxiety disorder F32.9 Major depressive disorder, s jimmy episode, unspecified E78.5 Hyperlipidemia, unspecified Office Visit 07/15/2020 2:15p [facility] Loly Brittny ,DO I73.00 Raynaud's syndrome without gangrene G35 Multiple sclerosis G25.81 Restless legs syndrome G89.29 Other chronic pain F41.1 Generalized anxiety disorder F32.9 Major depressive disorder, s jimmy episode, unspecified R25.1 Tremor, unspecified Office Visit 06/10/2020 3:[facility]p [facility] ,DO I73.00 Raynaud's syndrome without gangrene G25.81 Restless legs syndrome G89.29 Other chronic pain F41.1 Generalized anxiety disorder G35 Multiple sclerosis Office Visit 04/29/2020 2:45p [facility] PA[facility]in Mart ,DO I73.00 Raynaud's syndrome without gangrene G25.81 Restless legs syndrome G89.29 Other chronic pain F32.9 Major depressive disorder, s jimmy episode, unspecified F41.1 Generalized anxiety disorder G35 Multiple sclerosis Assessments Date Code Description Provider 08/15/2020 G35 Multiple sclerosis Loly Mart,D O 08/15/2020 I73.00 Raynaud's syndrome without gangr lizandro Loly Mart,DO 08/15/2020 G25.81 Restless legs syndrome Loly bowling,DO 08/15/2020 G89.29 Other chronic pain Loly Mart,D O 08/15/2020 F41.1 Generalized anxiety disorder Andrea Mart,DO 08/15/2020 F32.9 Major depressive disorder, singl e episode, unspecified Loly Mart,DO 08/15/2020 E78.5 Hyperlipidemia, unspecified Jesse Mart,DO 07/27/2020 G35 Multiple sclerosis Loly Mart,D O [...] Brittny,DO 06/27/2020 G25.81 Restless legs syndrome Loly Horta dash,DO 06/27/2020 G89.29 Other chronic pain Loly Brittny,D O 06/10/2020 I73.00 Raynaud's syndrome without gangr lizandro Loly Brittny,DO 06/10/2020 G25.81 Restless legs syndrome Loly Horta dash,DO 06/10/2020 G89.29 Other chronic pain Loly Brittny,D O 06/10/2020 F41.1 Generalized anxiety disorder Andrea Mart,DO 06/10/2020 G35 Multiple sclerosis Loly Brittny,D O 04/29/2020 I73.00 Raynaud's syndrome without gangr lizandro Loly Mart,DO 04/29/2020 G25.81 Restless legs syndrome Loly Horta dash,DO 04/29/2020 G89.29 Other chronic pain Loly Brittny,D O 04/29/2020 F32.9 Major depressive disorder, singl e episode, unspecified Loly Brittny,DO 04/29/2020 F41.1 Generalized anxiety disorder Andrea Mart,DO 04/29/2020 G35 Multiple sclerosis Loly Mart,Durga O Plan of Treatment Future Appointment(s):* 02/14/2021 1:30 pm - Loly Mart DO at [facility] 08/15/2020 - Loly Mart DO* [...] Dr Reason for Referral Status Appt Date [facility] LABORATORY ASSISTANT CONSULT WITH DR FREY FOR MS Se nt [address] [place] [id number] [phone] [facility] LABORATORY ASSISTANT CONSULT FOR MULTIPLE SCLERO SIS Sent [address] [place] [address] [id number] [phone]
--- OUTSIDE RECORDS SUMMARY | 2020-11-07 19:01 | CCD | Summary of Care ---
Author Author [facility] Organization [facility] Address Unknown Phone Unavailable Care Team Providers Care Mother Baby Rn Name Role Phone Loly Mart DO PCP Reason for Referral * Consultation (Routine) Referred By Contact Referred To Contact Status Reason Specialty Diagnoses / Procedures Foster Krishnamurthy MD [address] [place] [phone] Email: [email or web address] Open Specialty Services Neurology Diagnoses Required Tremor Reason for Visit * Reason Comments New Patient * Consultation (Routine) Referred By Contact Referred To Contact Status Reason Specialty Diagnoses / Procedures Loly Mart DO [address] [facility] [address] [place] [address] Neurology Provider-Based [address], [address] [place] [phone] Authorized Neurology Diagnoses Multiple sclerosis P rocedures REFERRAL TO [facility] Encounter Details Care Team Description Date Type Department Foster Krishnamurthy MD [address] [place] [phone] Secondary progressive multiple sclerosis (Primary Dx); 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 Active Rathdrum-3 Fatty Acids (FISH Take by mouth 0 OIL PO) daily Active Turmeric Curcumin 500 MG Take by 0 CAPS mouth. 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 Vitamin D deficiency 08/26/2020 Cerebellar tremor 09/05/2018 Neurogenic bladder 09/05/2018 Decreased activities of daily living (ADL) 8 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 1 11/06/2017 Multiple sclerosis exacerbation 12/14/2015 documented as of this encounter (statuses as of 08/31/2020) Social History Date Tobacco Use Types Packs/Day Years Used Never Smoker Smokeless Tobacco: Never Used Drinks/Week oz/Week Comments Alcohol Use No Sex Assigned at Date Recorded Not on file documented as of this encounter Last Filed Vital Signs Reading Time Taken Comments Vital Sign - - Blood Pressure - - Pulse - - Temperature - - Respiratory Rate - - Oxygen Saturation - - Inhaled Oxygen Concentration 63.5 kg (140 lb) 08/31/2020 10:22 AM EST Patient weighed herself last night Weight - - Height 22.94 12/14/2015 4:44 PM EDT Body Mass Index documented in this encounter Progress Notes * Foster Krishnamurthy MD - 08/31/2020 10:20 AM EST Clinical Neuroimmunology telemedicine visit The patient was informed of the risks, including security breach, technological failure, inability to perform a comprehensive physical exam ,which could delay o r prevent an accurate diagnosis, and potential complications from treatment deci sions rendered over a telemedical platform, after which the patient consented to the use of telehealth services. Care was delivered via telemedicine audio and v ideo connection, as per [facility] and/or [facility] directives a nd protocols. Reason for consultation: Multiple sclerosis Requested by: Sara Romero MD [facility] [place] [address] Chief Complaint: Chief Complaint Patient presents with New Patient HPI: Verónica Chi is a 60 y.o. right handed female who is assessed by keren nunez for initial consultation accompanied by her daughter Summary of MS: (obtained from patient and outside records) MS Type: Secondary Progressive Multiple Sclerosis Onset date/symptoms: 1998, ble numbness Diagnosis date: 1998 Flare history: numerous, she does not recall dates DMT, history: Copaxone, ~1999 - 2009, stopped due to persistent flares Rebif, ~2009 - 2015, stopped due to disease worsening Tysabri, started Sep 2015, stopped 2017 due to JCV Ab positive Rebif x 3-6 months in early 2016, stopped due to side effects Tecfidera, started 2016 - Apr 2020, stopped due disease progression, plan to s tart mayzent Copaxone brrfly DMT, current: none I have personally reviewed the outside records and/or referral documentation fou nd in the media section of this EMR. I have summarized the pelayo points in this no te. Neurological History: Summary of MS as above. Last saw Dr[facility] Lynn at [facility] via phone visit on 12/22/2019 when she reproted R leg w orsening stiffness/spacticity. BUE hand shaking. Last Saw Dr. Sara Romero on 07/19/2020: Referred to me to consider new DMTs. Th ere had been discussion of started aubagio or mayzent. Her lymphocytes had not y et returned to the normal range at that time after stopping tecfidera. Current symptoms: Progressive LE dysfuntion for a few years. 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 VAction tremor of the right > left hands, [...] sister has SLE Diagnosis Workup and Results: MRI Information: Laboratory Studies: Labs from [facility] 08/15/2020 MAYRA negative No results found for [...] sclerosis Sister Lupus Sister Allergies as of 08/31/2020 - Reviewed 08/31/2020 Allergen Reaction Noted Sulfa antibiotics Nausea Only 12/14/2015 Outpatient Medications Marked as Taking for the 08/31/20 encounter (Telemedicine) with Foster Krishnamurthy MD Medication Sig Dispense Refill Extra Info Baclofen 5 MG Oral Tablet (LIORESAL) Take 10 mg by mouth Three times aicha y 1 DULoxetine HCl 60 MG Oral Capsule Delayed Release Particles (CYMBALTA) Ta ke 60 mg by mouth daily 1 Gabapentin 300 MG Oral Capsule (NEURONTIN) Take 300 mg by mouth Three reny es daily 1 Multiple Vitamin (MULTIVITAMIN) capsule Take 1 capsule by mouth daily. 1 Rathdrum-3 Fatty Acids (FISH OIL PO) Take by mouth daily 1 tizanidine (ZANAFLEX) 4 MG tablet Take 4 mg by mouth every 6 (six) hours as needed. 1 Vitamin C 1000 MG Oral Tablet Take 1,000 mg by mouth daily 1 Vitamin D3 25 MCG (1000 UT) Oral Tablet (CHOLECALCIFEROL) Take 1,000 Unit s by mouth daily 1 Review of Systems: Besides the above mentioned symptoms described in the HPI, a complete review of systems was obtained and filed in the chart. All other systems were otherwise negative. General Physical Exam: Vital Signs: Vitals: 08/31/20 1022 Weight: 63.5 kg (140 lb) Neurological Examination Mental Status/Psychiatric: The patient was awake, alert, attentive, oriented to time, place, person. Recent and remote memory intact to conversation with no evidence of language dysfunction. Satisfactory fund of knowledge. Normal attention span and concentration. Mental status: normal (no anxiety/depression/euphoria/pseudobulbar affect) Speech: normal (not dysphasic/cerebellar/spastic) Large amplitude action tremor of the R >L hand, worse with purposeful movements like writing or using utensil. Minor postural component, was not able to observe at rest. Exam is limited by telemedicine format Assessment: Verónica Chi is a 60 y.o. female who is assessed by telemedicine for new ne urology consultation. Secondary progressive MS not currently on a disease modif olimpia therapy. The patient denies recent attacks and tells me she has not had MR Is with new lesions recently. I reviewed only MRI images available to me from 2015. Multiple PV and Juxtacortical lesions, cervicomedullary junction, and C4 l esion all consistent with multiple sclerosis. That being said, she is very inte rested in trying Mayzent. Greater than 50% of this 60 minute visit was spent in medical discussion regardi ng the patient's diagnosis, prognosis, disease modifying therapies (DMT) and sym ptoms management including medication risks, benefits, and side effects. We dis cussed what would be reasonable expectations with Mayzent, namely that is not go ing to make recurrent symptoms or disability better, and we discussed the risks. I do not think she would benefit from Aubagio or restarting Tecfidera. Plan: Secondary Progressive Multiple Sclerosis Start mayzent - sent link to patient Referral to Dr. Lindsay Juárez for ophthalmology evaluation Patient to obtain EKG at her PCPs office I will mail patient lab slips which she will review with her PCP to see if they can be drawn there. She may need to go to a [facility] location in order to compl ete the CYP2C9 genetic testing. Tremor, rubral Referral to movement disorder colleagues to evaluate for treatment options LE spacticity, pain Address at future visits Continue tizanidine Continue gabapentin Depression Continue cymbalta Vitamin D deficiency Continue supplementation RTC 2 months Orders Placed This Encounter CBC and Differential Comprehensive Metabolic Panel Varicella zoster antibody, IgG CYP2CP testing for siponimod (Send Out) ARINA ARINA Specificity Hepatic Function Panel Hepatitis B surface antibody Hepatitis panel, acute HIV Ag Ab Combo Screen Immunoglobulin Assay Myelin Oligodendrocyte Glycoprotein (Authorized Providers Only) NMO/AQP4 FACS, Serum (Send Out) Stratify JCV (TM) AB with Index Vitamin D 25 Hydroxy, Total Vitamin B12 Homocysteine, serum Methylmalonic Acid, Serum Folate Copper, plasma Ceruloplasmin Zinc, plasma Ambulatory referral to Neurology I had an extensive conversation with Verónica Chi regarding these thoughts a nd recommendations. The patient demonstrated a good understanding of the risks/b enefits of this plan. Thank you for allowing us to participate in the care of this patient. If you hav e any questions, please do not hesitate to call our office. documented in this encounter Plan of Treatment Order Schedule Name Type Priority Associated Diag noses 1 Occurrences starting 08/31/2020 until 03/01/2021 CBC and Differential Lab Routine Secondary progressive multiple sclerosis 1 Occurrences starting 08/31/2020 until 03/01/2021 Comprehensive Metabolic Lab Routine Second hiram progressive Panel multiple sclerosis 1 Occurrences starting 08/31/2020 until 03/01/2021 Varicella zoster Lab Routine Secondary pro gressive antibody, IgG multiple sclerosis 1 Occurrences starting 08/31/2020 until 03/01/2021 CYP2CP testing for Lab Routine Secondary p rogressive siponimod (Send Out) multiple sclerosis 1 Occurrences starting 08/31/2020 until 03/01/2021 ARINA Lab Routine Secondary progr essive multiple sclerosis 1 Occurrences starting 08/31/2020 until 03/01/2021 ARINA Specificity Lab Routine Secondary prog ressive multiple sclerosis 1 Occurrences starting 08/31/2020 until 03/01/2021 Hepatic Function Panel Lab Routine Seconda ry progressive multiple sclerosis 1 Occurrences starting 08/31/2020 until 03/01/2021 Hepatitis B surface Lab Routine Secondary progressive antibody multiple sclerosis 1 Occurrences starting 08/31/2020 until 03/01/2021 Hepatitis panel, acute Lab Routine Weaknes s Secondary progressive multiple sclerosis 1 Occurrences starting 08/31/2020 until 03/01/2021 HIV Ag Ab Combo Screen Lab Routine Seconda ry progressive multiple sclerosis 1 Occurrences starting 08/31/2020 until 03/01/2021 Immunoglobulin Assay Lab Routine Secondary progressive multiple sclerosis 1 Occurrences starting 08/31/2020 until 03/01/2021 Myelin Oligodendrocyte Lab Routine Seconda ry progressive Glycoprotein (Authorized multiple sclerosis Providers Only) 1 Occurrences starting 08/31/2020 until 03/01/2021 NMO/AQP4 FACS, Serum Lab Routine Secondary progressive (Send Out) multiple sclerosis 1 Occurrences starting 08/31/2020 until 03/01/2021 Stratify JCV (TM) AB with Lab Routine Seco ndary progressive Index multiple sclerosis 1 Occurrences starting 08/31/2020 until 03/01/2021 Vitamin D 25 Hydroxy, Lab Routine Vitamin D deficiency, Total unspecified Secondary progressive multiple sclerosis 1 Occurrences starting 08/31/2020 until 03/01/2021 Vitamin B12 Lab Routine Secondary progr essive multiple sclerosis 1 Occurrences starting 08/31/2020 until 03/01/2021 Homocysteine, serum Lab Routine Secondary progressive multiple sclerosis 1 Occurrences starting 08/31/2020 until 03/01/2021 Methylmalonic Acid, Serum Lab Routine Seco ndary progressive multiple sclerosis 1 Occurrences starting 08/31/2020 until 03/01/2021 Folate Lab Routine Secondary progr essive multiple sclerosis 1 Occurrences starting 08/31/2020 until 03/01/2021 Copper, plasma Lab Routine Secondary progr essive multiple sclerosis 1 Occurrences starting 08/31/2020 until 03/01/2021 Ceruloplasmin Lab Routine Secondary progr essive multiple sclerosis 1 Occurrences starting 08/31/2020 until 03/01/2021 Zinc, plasma Lab Routine Secondary progr essive multiple sclerosis Order Schedule Name Type Priority Associated Diag noses Ordered: 08/31/2020 Ambulatory referral to Outpatient Routine Tremor Neurology Referral Health Maintenance Due Date Last Done Comments Hepatitis C Screening (B. 1960 8495-7632) MMR Vaccines (1 of 1 - 1960 Standard series) Varicella Vaccines (1 [...] multiple sclerosi s - Primary Multiple sclerosis Spastic paraplegia secondary to multipl e sclerosis Paraplegia Vitamin D deficiency Unspecified vitamin D deficiency Weakness Other malaise and fatigue Vitamin D deficiency, unspecified Tremor Abnormal involuntary movements documented in this encounter
--- OUTSIDE RECORDS SUMMARY | 2020-11-07 19:02 | CCD | Continuity of Care Document ---
Author Author Verónica DE LA TORRE Organization Unknown Address [address] [facility] [address] [place] [address] Phone [phone] Care Team Providers Care Radiation Therapist Name Role Phone [facility] AUTM [phone] Loly De La Torre DO AUTM Unavailable Sara Romero MD AUTM [phone] Dolly Hopkins NP AUTM [phone] [facility] AUTM [phone] Problems Active Problems Provider Date Vitamin D [...] HCL 1mg Tablets one po bid 60tabs Loyl De La Torre,DO 04/29/2020 Naproxen 500mg Tablets 1 by mouth twice a day with food for 10 days then use only as needed 60tabs Loly De La Torre,DO 10/27/2018 Biotin Capsules 1 by mouth e very day Loly De La Torre,DO 09/30/2017 Osteo Bi-Flex Tablets 1 every day [...] 03/24/2010 Vitamin C 1000mg Tablets Loly De L aTorre,DO 03/24/2010 Fish Oil 1200mg Loly De La Torre,DO 03/24/[address] 1 by mouth twice a day Unknown Atorvastatin Calcium 20mg Tablets 1 by mouth every day 90tabs Loly De La Torre,DO Baclofen 5mg Tablets tid Unknown History Medications Amlodipine Besylate 2.5mg Tablets 1 by mouth every day 30tabs Loly De La Torre,DO 03/24/2020 - Immunizations CPT Code Status Date Vaccine Lot # [id number] Refused 10/15/2018 Influenza Virus Vaccine, Quadrivalent (Cciiv4), [...] Note MAYRA Virus Dna PCR Whole Blood 07/27/2020 [facility] [address] [place] [address] [phone] MAYRA Virus Dna PCR Whole Blood Negative Normal Neg ative 1 Complete Blood Count 07/27/2020 [facility] Tone Artist Apprentice: [place] [address] [phone] WBC 6.4 x10*3/UL 4.1 - 10.9 RBC [...] MAYRA Virus Dna PCR Whole Blood 06/30/2020 [facility] [address] [place] [address] [phone] MAYRA Virus Dna PCR Whole Blood Negative Normal Neg ative 2 Complete Blood Count 06/30/2020 [facility] [place] Tone Artist Apprentice: Dr Trevon Steve [place] [id number] [phone] WBC 6.0 x10*3/UL 4.1 - 10.9 3 RBC 4.47 x10*6/UL 4.20 - 6.30 Hemoglobin [...] 2.0 - 7.8 Comprehensive Chem Profile 06/30/2020 [facility] Tone Artist Apprentice: [place] [address] [phone] Glucose 83 mg/dL 74 - 99 4 BUN 22 mg/dL High 7 - 18 [...] >60 GFR >= 60 mL/min >60 5 Complete Blood Count 03/24/2020 [facility] sonia hernandez Tone Artist Apprentice: [place] [address] [phone] WBC 5.4 x10*3/UL 4.1 - 10.9 6 RBC 4.71 x10*6/UL 4.20 - 6.30 Hemoglobin [...] 2.0 - 7.8 Comprehensive Chem Profile 03/24/2020 [facility] ernronnie, sonia Tone Artist Apprentice: [place] [address] [phone] Glucose 89 mg/dL 74 - 99 7 BUN 10 mg/dL 7 - 18 Creatinine [...] mL/min >60 GFR >= 60 mL/min >60 8 Lipid Profile 03/24/2020 [facility] , Tone Artist Apprentice: [place] [address] [phone] Cholesterol 201 mg/dL High 131 - 200 Triglycerides 50 mg/dL 30 - 150 HDL Cholesterol 66 mg/dL High 35 - 60 LDL (Calculated) 125 CALC 50 - 159 Manual Differential 03/24/2020 [facility] n[facility] [address] [place] [address] [phone] Neutrophils 72 % High 28-66 Bands 1 % Normal < 11 Lymphocytes 8 % Low 16-44 Eosinophils 8 % High 0-3 Basophils 4 % High 0-1 Atypical Lymph 7 % High 0-5 RBC Morphology NORMAL Normal Platelet Estimate NORMAL Normal Normal 1 No JCV DNA detected This test was developed and its performance characteristics determined by [facility]. It has not been cleared or approved by the Food and Drug Administration. The FDA has determined that such clearance or approval is not necessary. Performed at: - [facility] [id number] Tone Artist Apprentice: Grupo Silvestre MD, Phone: [phone] 2 No JCV DNA detected This test was developed and its performance characteristics determined by [facility] It has not been cleared or approved by the Food and Drug Administration. The FDA has determined that such clearance or approval is not necessary. Performed at: - [facility] [id number] Tone Artist Apprentice: Grupo Silvestre MD, Phone: [phone] NOTE: RESULT VERIFIED. 4 100-125 mg/dL PRE-DIABET ES/FASTING >126 mg/dL DIABETES/FASTING 5 CHRONIC KIDNEY DISEASE STAGI NG PER NKF STAGE I & II GFR >= 60 NORMAL TO MILDLY DECREASED STAGE III GFR 30-59 MODERATELY DECREASED STAGE IV GFR 15-29 SEVERELY DECREASED STAGE V GFR <15 VERY LITTLE GFR LEFT ESRD GFR <15 ON MINE PATROL 6 NOTE: MANUAL DIFFERENTIAL SENT TO [facility] FOR VERIFICATION. 7 100-125 mg/dL PRE-DIABET ES/FASTING >126 mg/dL DIABETES/FASTING 8 CHRONIC KIDNEY DISEASE STAGI NG PER NKF STAGE I & II GFR >= 60 NORMAL TO MILDLY DECREASED STAGE III GFR 30-59 MODERATELY DECREASED STAGE IV GFR 15-29 SEVERELY DECREASED STAGE V GFR <15 VERY LITTLE GFR LEFT ESRD GFR <15 ON MINE PATROL Procedures Date Code Description Status 06/02/2018 [id number] Mammogram Completed 02/06/2017 [id number] Bone Mineral Density Test Comple [facility] 11/22/2016 [id number] Mammogram Completed 08/06/2014 [id number] Mammogram Completed 04/03/2013 [id number] Colonoscopy Completed 08/08/2012 [id number] Mammogram Completed 08/29/2010 [id number] Mammogram Completed 03/03/2009 [id number] Bone Mineral Density Test Comple [facility] [employer] Description No Information Available Encounters Type Date Location Provider Dx Diagnosis Office Visit 07/15/2020 2:15p [facility] Loly De La Torre DO I73.00 Raynaud's syndrome without gangrene G35 Multiple sclerosis G25.81 Restless legs syndrome G89.29 Other chronic pain F41.1 Generalized anxiety disorder F32.9 Major depressive disorder, s jimmy episode, unspecified R25.1 Tremor, unspecified Office Visit 06/10/2020 3:00p [facility], Akosua De La Torre ,DO I73.00 Raynaud's syndrome without gangrene G25.81 Restless legs syndrome G89.29 Other chronic pain F41.1 Generalized anxiety disorder G35 Multiple sclerosis Office Visit 04/29/2020 2:45p [facility], Akosua De La Torre ,DO I73.00 Raynaud's syndrome without gangrene G25.81 Restless legs syndrome G89.29 Other chronic pain F32.9 Major depressive disorder, s jimmy episode, unspecified F41.1 Generalized anxiety disorder G35 Multiple sclerosis Office Visit 03/24/2020 2:15p [facility], Akosua De La Torre ,DO G89.29 [...] 03/24/2020 F41.1 Generalized anxiety disorder Mendez ra Brittny, 03/24/2020 E78.5 Hyperlipidemia, unspecified Jesse De La Torre,DO 03/14/2020 G89.29 Other chronic pain Durga Sandoval O 03/14/2020 I73.00 Raynaud's syndrome without gangr lizandro Loly De La Torre,DO 03/14/2020 F32.9 Major depressive disorder, singl e episode, unspecified Loly De La Torre, 03/14/2020 E78.5 Hyperlipidemia, unspecified Jesse De La Torre DO Plan of Treatment Future Appointment(s):* 02/14/2021 1:30 pm - Loly De La Torre DO at [facility] 08/15/2020 - Loly De La [...] Dr Reason for Referral Status Appt Date [email or web address] Neuromuscular Clinic CLINICAL REGISTERED NURSE CONSULT WITH DR FREY FOR MS Se nt [address] [place] [phone] [facility] [[email or web address]] Movement Disorders Clinic CLINICAL REGISTERED NURSE CONSULT FOR MULTIPLE SCLERO SIS Sent [address] [place] [address] [phone]
--- OUTSIDE RECORDS SUMMARY | 2020-11-07 19:02 | CCD | Continuity of Care Document ---
Author Author Verónica DE LA TORRE Organization Unknown Address [address] [facility] [address] [place] [address] Phone [phone] Care Team Providers Care Dragger Name Role Phone [facility] AUTM [phone] Loly De La Torre DO AUTM Unavailable Sara Romero MD AUTM [phone] Dolly Hopkins NP AUTM [phone] [facility] AUTM [phone] Problems Active Problems Provider Date Vitamin D [...] CPT Code Status Date Vaccine Lot # [id number] Refused 10/15/2018 Influenza Virus Vaccine, Quadrivalent (Cciiv4), [...] Date Facility Test Result H/L Range Note Complete Blood Count 08/15/2020 [facility] son[facility] hernandez Administrative Support Assistant: [place] [address] [phone] WBC 6.8 x10*3/UL 4.1 - 10.9 RBC [...] 2.0 - 7.8 Comprehensive Chem Profile 08/15/2020 [facility] smith Administrative Support Assistant: [place] [address] [phone] Glucose 93 mg/dL 74 - 99 1 BUN 16 mg/dL 7 - 18 Creatinine [...] mL/min >60 GFR >= 60 mL/min >60 2 MAYRA Virus Dna PCR Whole Blood 07/27/2020 [facility] [address] [place], [place] [id number] [phone] MAYRA Virus Dna PCR Whole Blood Negative Normal Neg ative 3 Complete Blood Count 07/27/2020 [facility] Administrative Support Assistant: Dr Trevon Steve [place], [place] [id number] [phone] WBC 6.4 x10*3/UL 4.1 - 10.9 RBC [...] MAYRA Virus Dna PCR Whole Blood 06/30/2020 [facility] [address] [place] [address] [phone] MAYRA Virus Dna PCR Whole Blood Negative Normal Neg ative 4 Complete Blood Count 06/30/2020 [facility] Administrative Support Assistant: [place] [address] [phone] WBC 6.0 x10*3/UL 4.1 - 10.9 5 RBC 4.47 x10*6/UL 4.20 - 6.30 Hemoglobin [...] 2.0 - 7.8 Comprehensive Chem Profile 06/30/2020 [facility] smith Administrative Support Assistant: Dr Trevon Steve [place], [place] [id number] [phone] Glucose 83 mg/dL 74 - 99 6 BUN 22 mg/dL High 7 - 18 [...] mL/min >60 GFR >= 60 mL/min >60 7 Complete Blood Count 03/24/2020 [facility] sonia hernandez Administrative Support Assistant: [place] [address] [phone] WBC 5.4 x10*3/UL 4.1 - 10.9 8 RBC 4.71 x10*6/UL 4.20 - 6.30 Hemoglobin [...] 2.0 - 7.8 Comprehensive Chem Profile 03/24/2020 [facility] Administrative Support Assistant: Dr Trevon [place], [place] [id number] [phone] Glucose 89 mg/dL 74 - 99 9 BUN 10 mg/dL 7 - 18 Creatinine [...] >60 GFR >= 60 mL/min >60 10 Lipid Profile 03/24/2020 [facility] Administrative Support Assistant: [place] [address] [phone] Cholesterol 201 mg/dL High 131 - 200 Triglycerides 50 mg/dL 30 - 150 HDL Cholesterol 66 mg/dL High 35 - 60 LDL (Calculated) 125 CALC 50 - 159 Manual Differential 03/24/2020 [facility] nter [address] [place], [place] [id number] [phone] Neutrophils 72 % High 28-66 Bands 1 % Normal < 11 Lymphocytes 8 % Low 16-44 Eosinophils 8 % High 0-3 Basophils 4 % High 0-1 Atypical Lymph 7 % High 0-5 RBC Morphology NORMAL Normal Platelet Estimate NORMAL Normal Normal 1 100-125 mg/dL PRE-DIABET ES/FASTING >126 mg/dL DIABETES/FASTING 2 CHRONIC KIDNEY DISEASE STAGI NG PER NKF STAGE I & II GFR >= 60 NORMAL TO MILDLY DECREASED STAGE III GFR 30-59 MODERATELY DECREASED STAGE IV GFR 15-29 SEVERELY DECREASED STAGE V GFR <15 VERY LITTLE GFR LEFT ESRD GFR <15 ON [facility] [employer] 3 No JCV DNA detected This test was developed and its performance characteristics determined by [facility]. It has not been cleared or approved by the Food and Drug Administration. The FDA has determined that such clearance or approval is not necessary. Performed at: [address] [id number] Administrative Support Assistant: Grupo Silvestre MD, Phone: [phone] No JCV DNA detected This test was developed and its performance characteristics determined by [facility]. It has not been cleared or approved by the Food and Drug Administration. The FDA has determined that such clearance or approval is not necessary. Performed at: [address] [id number] Administrative Support Assistant: Grupo Silvestre MD, Phone: [phone] NOTE: RESULT VERIFIED. 6 100-125 mg/dL PRE-DIABET ES/FASTING >126 mg/dL DIABETES/FASTING 7 CHRONIC KIDNEY DISEASE STAGI NG PER NKF STAGE I & II GFR >= 60 NORMAL TO MILDLY DECREASED STAGE III GFR 30-59 MODERATELY DECREASED STAGE IV GFR 15-29 SEVERELY DECREASED STAGE V GFR <15 VERY LITTLE GFR LEFT ESRD GFR <15 ON STATE'[facility] ATTORNEY 8 NOTE: MANUAL DIFFERENTIAL SENT TO [facility] FOR VERIFICATION. 9 100-125 mg/dL PRE-DIABET ES/FASTING >126 mg/dL DIABETES/FASTING 10 CHRONIC KIDNEY DISEASE STAGI NG PER NKF STAGE I & II GFR >= 60 NORMAL TO MILDLY DECREASED STAGE III GFR 30-59 MODERATELY DECREASED STAGE IV GFR 15-29 SEVERELY DECREASED STAGE V GFR <15 VERY LITTLE GFR LEFT ESRD GFR <15 ON [facility] [employer] Procedures Date Code Description Status 06/02/2018 [id number] Mammogram Completed 02/06/2017 [id number] Bone Mineral Density Test Comple anaid 11/22/2016 [id number] Mammogram Completed 08/06/2014 [id number] Mammogram Completed 04/03/2013 [id number] Colonoscopy Completed 08/08/2012 [id number] Mammogram Completed 08/29/2010 [id number] Mammogram Completed 03/03/2009 [id number] Bone Mineral Density Test Comple Checkr Description No Information Available Encounters Type Date Location Provider Dx Diagnosis [facility] Visit [facility] I[facility]00 Raynaud's syndrome without gangrene G35 Multiple sclerosis G25.81 Restless legs syndrome G89.29 Other chronic pain F41.1 Generalized anxiety disorder F32.9 Major depressive disorder, s jimmy episode, unspecified R25.1 Tremor, unspecified Office Visit 06/10/2020 3:00p [facility] I73.00 Raynaud's syndrome without gangrene G25.81 Restless legs syndrome G89.29 Other chronic pain F41.1 Generalized anxiety disorder G35 Multiple sclerosis Office Visit 04/29/2020 2:45p [facility] I73.00 Raynaud's syndrome without gangrene G25.81 Restless legs syndrome G89.29 Other chronic pain F32.9 Major depressive disorder, s jimmy episode, unspecified F41.1 Generalized anxiety disorder G35 Multiple sclerosis Office Visit 03/24/2020 2:15p [facility] G89.29 Other chronic pain I73.00 Raynaud's [...] De La Torre,DO 07/27/2020 G35 Multiple sclerosis Loly Brittny,D O 07/27/2020 G35 Multiple sclerosis Lab Schedule 07/15/2020 I73.00 Raynaud's syndrome without gangr lizandro Loly Brittny,DO 07/15/2020 G35 Multiple sclerosis Loly Brittny,D O 07/15/2020 G25.81 Restless legs syndrome Loly Bog gs,DO 07/15/2020 G89.29 Other chronic pain Loly Brittny,D [...] O 03/24/2020 G89.29 Other chronic pain Loly De La Torre,D O 03/24/2020 I73.00 Raynaud's syndrome without gangr lizandro Loly De La Torre,DO 03/24/2020 F32.9 Major depressive disorder, singl e episode, unspecified Loly De La Torre,DO 03/24/2020 F41.1 Generalized anxiety disorder Andrea De La Torre,DO 03/24/2020 E78.5 Hyperlipidemia, unspecified Jesse a Brittny,DO 03/14/2020 G89.29 Other chronic pain Loly De La Torre,D O 03/14/2020 I73.00 Raynaud's syndrome without gangr lizandro Loly De La Torre,DO 03/14/2020 F32.9 Major depressive disorder, singl e episode, unspecified Loly De La Torre,DO 03/14/2020 E78.5 Hyperlipidemia, unspecified Jesse marielos De La Torre, Plan of Treatment Future Appointment(s):* 02/14/2021 1:30 pm - Loly De La Torre DO at [facility] 08/15/2020 - Loly De La [...] to Reason for Referral Status Appt Date [facility] AGILE DEVELOPER CONSULT WITH DR FREY FOR MS Se nt [address] [place] [phone] [facility] AGILE DEVELOPER CONSULT FOR MULTIPLE SCLERO SIS Sent [address] [place] [id number] [phone]
--- OUTSIDE RECORDS SUMMARY | 2020-11-07 19:03 | CCD ---
Author Author [facility] Organization [facility] Address Unknown Phone Unavailable Care Team Providers Care Supervisor Major Appliance Assembly Name Role Phone Brittny, Loly DO Unavailable Unavailable Brittny, Loly DO Unavailable Unavailable Brittny, Loly DO Unavailable Unavailable Brittny, Loly DO Unavailable Unavailable Brittny, Loly DO Unavailable Unavailable Brittny, Loly DO Unavailable Unavailable Brittny, Loly DO Unavailable Unavailable Brittny, Loly DO Unavailable Unavailable Brittny, Loly DO Unavailable Unavailable Brittny, Loly DO Unavailable Unavailable Brittny, Loly DO Unavailable Unavailable Brittny, Loly DO Unavailable Unavailable Brittny, Loly DO Unavailable Unavailable Brittny, Loly DO Unavailable Unavailable Brittny, Loly DO Unavailable Unavailable Brittny, Loly DO Unavailable Unavailable Brittny, Loly DO Unavailable Unavailable Brittny, Loly DO Unavailable Unavailable Brittny, Loly DO Unavailable Unavailable Brittny, Loly DO Unavailable Unavailable Brittny, Loly DO Unavailable Unavailable Brittny, Loly DO Unavailable Unavailable Brittny, Loly DO Unavailable Unavailable Brittny, Loly DO Unavailable Unavailable Brittny, Loly DO Unavailable Unavailable Brittny, Loly DO Unavailable Unavailable Brittny, Loly DO Unavailable Unavailable Brittny, Loly DO Unavailable Unavailable Brittny, Loly DO Unavailable Unavailable Brittny, Loly DO Unavailable Unavailable Brittny, Loly DO Unavailable Unavailable Brittny, Loly DO Unavailable Unavailable Brittny, Loly DO Unavailable Unavailable Brittny, Loly DO Unavailable Unavailable Brittny, Loly DO Unavailable Unavailable Brittny, Loly DO Unavailable Unavailable Brittny, Loly DO Unavailable Unavailable Brittny, Loly DO Unavailable Unavailable Brittny, Loly DO Unavailable Unavailable Brittny, Loly DO Unavailable Unavailable Brittny, Loly DO Unavailable Unavailable Brittny, Loly DO Unavailable Unavailable Brittny, Loly DO Unavailable Unavailable Brittny, Loly DO Unavailable Unavailable Brittny, Loly DO Unavailable Unavailable Brittny, Loly DO Unavailable Unavailable Brittny, Loly DO Unavailable Unavailable Brittny, Loly DO Unavailable Unavailable Brittny, Loly DO Unavailable Unavailable Brittny, Loly DO Unavailable Unavailable Brittny, Loly DO Unavailable Unavailable Brittny, Loly DO Unavailable Unavailable Brittny, Loly DO Unavailable Unavailable Brittny, Loly DO Unavailable Unavailable Brittny, Loly DO Unavailable Unavailable Brittny, Loly DO Unavailable Unavailable Brittny, Loly DO Unavailable Unavailable Brittny, Loly DO Unavailable Unavailable Brittny, Loly DO Unavailable Unavailable Brittny, Loly DO Unavailable Unavailable Brittny, Loly DO Unavailable Unavailable Brittny, Loly DO Unavailable Unavailable Brittny, Loly DO Unavailable Unavailable Brittny, Loly DO Unavailable Unavailable Brittny, Loly DO Unavailable Unavailable Brittny, Loly DO Unavailable Unavailable Brittny, Loly DO Unavailable Unavailable Brittny, Loly DO Unavailable Unavailable Brittny, Loly DO Unavailable Unavailable Brittny, Loly DO Unavailable Unavailable Brittny, Loly DO Unavailable Unavailable Brittny, Loly DO Unavailable Unavailable ROYAL, JOSUE MD Unavailable Unavailable ROYAL, JOSUE MD Unavailable Unavailable ROYAL, JOSUE MD Unavailable Unavailable ROYAL, JOSUE MD Unavailable Unavailable ROYAL, JOSUE MD Unavailable Unavailable ROYAL, JOSUE MD Unavailable Unavailable ROYAL, JOSUE MD Unavailable Unavailable ROYAL, JOSUE MD Unavailable Unavailable ROYAL, JOSUE MD Unavailable Unavailable ROYAL, JOSUE MD Unavailable Unavailable ROYAL, JOSUE MD Unavailable Unavailable ROYAL, JOSUE MD Unavailable Unavailable ROYAL, JOSUE MD Unavailable Unavailable ROYAL, JOSUE MD Unavailable Unavailable ROYAL, JOSUE MD Unavailable Unavailable ROYAL, JOSUE MD Unavailable Unavailable ROYAL, JOSUE MD Unavailable Unavailable ROYAL, JOSUE MD Unavailable Unavailable ROYAL, JOSUE MD Unavailable Unavailable ROYAL, JOSUE MD Unavailable Unavailable ROYAL, JOSUE MD Unavailable Unavailable ROYAL, JOSUE MD Unavailable Unavailable ROYAL, JOSUE GUTIERRES Unavailable Unavailable ROYAL, JOSUE MD Unavailable Unavailable ROYAL, JOSUE MD Unavailable Unavailable ROYAL, JOSUE MD Unavailable Unavailable ROYAL, JOSUE MD Unavailable Unavailable ROYAL, JOSUE MD Unavailable Unavailable ROYAL, JOSUE GUTIERRES Unavailable Unavailable ROYAL, JOSUE GUTIERRES Unavailable Unavailable ROYAL, JOSUE MD Unavailable Unavailable ROYAL, JOSUE UGTIERRES Unavailable Unavailable ROYAL, JOSUE GUTIERRES Unavailable Unavailable ROYAL, JOSUE GUTIERRES Unavailable Unavailable ROYAL, JOSUE GUTIERRES Unavailable Unavailable ROYAL, JOSUE MD Unavailable Unavailable ROYAL, JOSUE MD Unavailable Unavailable ROYAL, JOSUE MD Unavailable Unavailable ROYAL, JOSUE MD Unavailable Unavailable ROYAL, JOSUE GUTIERRES Unavailable Unavailable Raghu GUTIERRES, A Foster Unavailable Raghu GUTIERRES, A Foster Unavailable Raghu GUTIERRES, A Foster Unavailable Raghu GUTIERRES, A Foster Unavailable Raghu GUTIERRES, A Foster Unavailable Raghu GUTIERRES, A Foster Unavailable Raghu GUTIERRES, A Foster Unavailable Raghu GUTIERRES, A Foster Unavailable Raghu GUTIERRES, A Foster Unavailable Raghu MD, A Foster Unavailable Raghu GUTIERRES, A Foster Unavailable Raghu GUTIERRES, A Foster Unavailable Raghu GUTIERRES, A Foster Unavailable Raghu GUTIERRES, A Foster Unavailable Raghu GUTIERRES, A Foster Unavailable Raghu GUTIERRES, A Foster Unavailable Raghu GUTIERRES, A Foster Unavailable Raghu GUTIERRES, A Foster Unavailable Raghu MD, A Foster Unavailable Raghu MD, A Foster Unavailable Raghu MD, A Foster Unavailable Raghu MD, A Foster Unavailable Raghu MD, A Foster Unavailable Raghu MD, A Foster Unavailable Raghu MD, A Foster Unavailable Raghu MD, A Foster Unavailable Raghu MD, A Foster Unavailable Raghu MD, A Foster Unavailable Raghu MD, A Foster Unavailable Raghu MD, A Foster Unavailable Raghu MD, A Foster Unavailable Raghu MD, A Foster Unavailable Raghu MD, A Foster Unavailable Raghu MD, A Foster Unavailable Raghu MD, A Foster Unavailable Raghu MD, A Foster Unavailable Raghu MD, A Foster Unavailable Raghu MD, A Foster Unavailable Raghu MD, A Foster Unavailable Raghu MD, A Foster Unavailable Raghu MD, A Foster Unavailable Raghu MD, A Foster Unavailable Raghu MD, A Foster Unavailable Raghu MD, A Foster Unavailable Raghu MD, A Foster Unavailable Darke, Luz IT CORPORATE RECRUITER Unavailable Unavailable Jeff, Luz IT CORPORATE RECRUITER Unavailable Unavailable Jeff, Luz IT CORPORATE RECRUITER Unavailable Unavailable Darke, Luz IT CORPORATE RECRUITER Unavailable Unavailable Darke, Luz IT CORPORATE RECRUITER Unavailable Unavailable Darke, Luz IT CORPORATE RECRUITER Unavailable Unavailable Darke, Luz IT CORPORATE RECRUITER Unavailable Unavailable Darke, Luz IT CORPORATE RECRUITER Unavailable Unavailable Darke, Luz IT CORPORATE RECRUITER Unavailable Unavailable Darke, Luz IT CORPORATE RECRUITER Unavailable Unavailable Darke, Luz IT CORPORATE RECRUITER Unavailable Unavailable Darke, Luz IT CORPORATE RECRUITER Unavailable Unavailable Darke, Luz IT CORPORATE RECRUITER Unavailable Unavailable Darke, Luz IT CORPORATE RECRUITER Unavailable Unavailable Darke, Luz IT CORPORATE RECRUITER Unavailable Unavailable Jeff, Luz IT CORPORATE RECRUITER Unavailable Unavailable Jeff, Luz IT CORPORATE RECRUITER Unavailable Unavailable Darke, Luz IT CORPORATE RECRUITER Unavailable Unavailable Darke, Luz IT CORPORATE RECRUITER Unavailable Unavailable Darke, Luz IT CORPORATE RECRUITER Unavailable Unavailable Jeff, Luz IT CORPORATE RECRUITER Unavailable Unavailable Darke, Luz IT CORPORATE RECRUITER Unavailable Unavailable Darke, Luz IT CORPORATE RECRUITER Unavailable Unavailable Jeff, Luz IT CORPORATE RECRUITER Unavailable Unavailable Darke, Luz IT CORPORATE RECRUITER Unavailable Unavailable Darke, Luz IT CORPORATE RECRUITER Unavailable Unavailable Darke, Luz IT CORPORATE RECRUITER Unavailable Unavailable Darke, Luz IT CORPORATE RECRUITER Unavailable Unavailable Jeff, Luz IT CORPORATE RECRUITER Unavailable Unavailable Darke, Luz IT CORPORATE RECRUITER Unavailable Unavailable Darke, Luz IT CORPORATE RECRUITER Unavailable Unavailable Jeff, Luz IT CORPORATE RECRUITER Unavailable Unavailable Debbi DELATORRE MD Unavailable Unavailable Debbi DELATORRE MD Unavailable Unavailable Debbi DELATORRE MD Unavailable Unavailable Debbi DELATORRE MD Unavailable Unavailable Debbi DELATORRE MD Unavailable Unavailable Debbi DELATORRE MD Unavailable Unavailable Debbi DELATORRE MD Unavailable Unavailable Debbi DELATORRE MD Unavailable Unavailable Debbi DELATORRE MD Unavailable Unavailable Debbi DELATORRE MD Unavailable Unavailable Debbi DELATORRE MD Unavailable Unavailable Debbi DELATORRE MD Unavailable Unavailable Debbi DELATORRE MD Unavailable Unavailable Debbi DELATORRE MD Unavailable Unavailable Debbi DELATORRE MD Unavailable Unavailable Debbi DELATORRE MD Unavailable Unavailable Debbi DELATORRE MD Unavailable Unavailable MIHAILA, L MANDY MD Unavailable Unavailable MIHAILA, L MANDY MD Unavailable Unavailable MIHAILA, L MANDY MD Unavailable Unavailable MIHAILA, L MANDY MD Unavailable Unavailable MIHAILA, L MANDY MD Unavailable Unavailable MIHAILA, L MANDY MD Unavailable Unavailable MIHAILA, L MANDY MD Unavailable Unavailable MIHAILA, L MANDY MD Unavailable Unavailable MIHAILA, L MANDY MD Unavailable Unavailable MIHAILA, L MANDY MD Unavailable Unavailable MIHAILA, L MANDY MD Unavailable Unavailable MIHAILA, L MANDY MD Unavailable Unavailable MIHAILA, L MANDY MD Unavailable Unavailable MIHAILA, L MANDY MD Unavailable Unavailable MIHAILA, L MANDY MD Unavailable Unavailable MIHAILA, L MANDY MD Unavailable Unavailable MIHAILA, L MANDY MD Unavailable Unavailable MIHAILA, L MANDY MD Unavailable Unavailable MIHAILA, L MANDY MD Unavailable Unavailable MIHAILA, L MANDY MD Unavailable Unavailable MIHAILA, L MANDY MD Unavailable Unavailable MIHAILA, L MANDY MD Unavailable Unavailable MIHAILA, L MANDY MD Unavailable Unavailable MIHAILA, L MANDY MD Unavailable Unavailable MIHAILA, L MANDY MD Unavailable Unavailable MIHAILA, L MANDY MD Unavailable Unavailable MIHAILA, L MANDY MD Unavailable Unavailable MIHAILA, L MANDY MD Unavailable Unavailable MIHAILA, L MANDY MD Unavailable Unavailable MIHAILA, L MANDY MD Unavailable Unavailable MIHAILA, L MANDY MD Unavailable Unavailable MIHAILA, L MANDY MD Unavailable Unavailable MIHAILA, L MANDY MD Unavailable Unavailable MIHAILA, L MANDY MD Unavailable Unavailable MIHAILA, L MANDY MD Unavailable Unavailable MIHAILA, L MANDY MD Unavailable Unavailable MIHAILA, L MANDY MD Unavailable Unavailable MIHAILA, L MANDY MD Unavailable Unavailable Re-disclosure Warning The records that you are about to access may contain information from federally-assisted alcohol or drug abuse programs. If such information is present, then the following federally mandated warning applies: This information has been disclosed to you from records protected by federal confidentiality rules (42 CFR part 2). The federal rules prohibit you from making any further disclosure of this information unless further disclosure is expressly permitted by the written consent of the person to whom it pertains or as otherwise permitted by 42 CFR part 2. A general authorization for the release of medical or other information is NOT sufficient for this purpose. The Federal rules restrict any use of the information to criminally investigate or prosecute any alcohol or drug abuse patient.The records that you are about to access may contain highly sensitive health information, the redisclosure of which is protected by Article 27-F of the [place] Public [employer] law. If you continue you may have access to information: Regarding HIV / AIDS; Provided by facilities licensed or operated by the [place] Office of Mental Health; or Provided by the [place] Office for People With Developmental Disabilities. If such information is present, then the following [place] mandated warning applies: This information has been disclosed to you from confidential records which are protected by state law. State law prohibits you from making any further disclosure of this information without the specific written consent of the person to whom it pertains, or as otherwise permitted by law. Any unauthorized further disclosure in violation of state law may result in a fine or mcfp sentence or both. A general authorization for the release of medical or other information is NOT sufficient authorization for further disc losure. Family History Family Member Name Family Member Gender Family Member Status Date o f Status Description Data Source(s) Unknown Male Problem [facility] ([facility]) Unknown Female Problem [facility] ([facility] Unknown Female Problem [facility] ([facility] Unknown Female Problem [facility] ([facility] Encounters Encounter Providers Location Date Indications Data Source(s ) Outpatient Attender: Foster Krishnamurthy MD 01/26/2021 12:00:00 A M [facility] Outpatient Attender: MANDY DELATORRE MD 12/27/2020 12:00:00 AM [facility] Outpatient Attender: Foster Krishnamurthy MD 12/12/2020 12:00:00 A M [facility] Outpatient Attender: Luz DANIELLEP [id number] 12:00:00 AM EST - 10/26/2020 02:48:40 PM [facility] Multiple sclerosis Outpatient Attender: Foster Krishnamurthy MD 10/26/2020 12:00:00 A M EST [facility] Outpatient Attender: Foster Krishnamurthy MDReferrer: JOSUE PAIGE MD [id number] 08/31/2020 12:00:00 AM EST - 08/31/2020 10:27:15 AM EST Multiple sclerosis [facility] Multiple sclerosis Outpatient Attender: JOSUE PAIGE MD Main office - [facility] n 08/25/2020 03:15:00 PM EST [facility] ([facility] Outpatient Attender: Loly Hanks 08/15 12:45:00 PM EST [facility] ([facility] ) Outpatient Attender: JOSUE PAIGE MD Main office - [facility] n 07/19/2020 03:45:00 PM EDT [facility] ([facility] Outpatient Attender: Loly Hanks 07/15 02:15:00 PM EDT [facility] ([facility] ) Outpatient Attender: Loly Hanks 06/10 03:00:00 PM EDT [facility] ([facility] ) Outpatient Attender: JOSUE PAIGE MD Main office - [facility] n 05/09/2020 09:45:00 AM EDT [facility] ([facility]) Outpatient Attender: Loly Hanks 04/29 02:45:00 PM EDT [facility] ([facility] ) (WC 30ESGYN) WCenter 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 [employer] [id number] [place] [address] 04/14/2020 12:00:00 AM EDT eCW1 ([facility]) Outpatient Attender: Loly Hanks 03/24 02:15:00 PM EDT [facility] ([facility] ) Outpatient Attender: JOSUE PAIGE MD Main office - [facility] n 02/26/2020 12:45:00 PM EDT [facility] ([facility] Outpatient Attender: Loly Hanks 01/21 11:00:00 AM EDT [facility] ([facility] ) Outpatient Attender: JOSUE PAIGE MD Main office - [facility] nimisha 01/14/2020 03:00:00 PM EDT [facility] ([facility] ) Outpatient Attender: Loly Hanks 10/15 12:00:00 PM EST [facility] ([facility] ) Medications Medication Brand Name Start Date Product Form Dose Route Admi nistrative Instructions Pharmacy Instructions Status Indications Reaction Description Data Source(s) methylPREDNISolone Sodium Succ 1000 MG I njection Solution Reconstituted (SOLU-MEDROL) 47432 10/26/2020 12:00:00 AM EST active 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 [facility] Secondary progressive multiple sclerosis gabapentin 300 MG Oral Capsule Gabapentin 300 MG Oral Capsule (NEURONTIN) Gabapentin 300 MG Oral Capsule (NEURONTIN) 08/20/2020 12:00:00 AM EST 300 mg Oral active Take 300 mg by mouth Three times daily [facility] duloxetine 30 MG Delayed Release Oral Capsule Duloxetine HCL 08/15/2020 12:00:00 AM EST ORAL active [facility] ([facility]) teriflunomide 7 MG Oral Tablet [Aubagio] Aubagio 08/09/2020 12:00: 00 AM EST ORAL active [facility] ([facility] ) NITROFURANTOIN, MACROCRYSTALS 25 MG / Ni trofurantoin, Monohydrate 75 MG Oral Capsule Nitrofurantoin Monohyd Macro 08/08/2020 12:00:00 AM EST ORAL active [facility] ([facility]) Primidone 50 MG Oral Tablet Primidone 07/19/2020 12:00:00 AM EDT ORAL active [facility] ([facility] ) duloxetine 60 MG Delayed Release Oral Capsule Duloxetine HCL 07/15/2020 12:00:00 AM EDT active [facility] ([facility]) Amlodipine 5 MG Oral Tablet Amlodipine Besylate 06/10/2020 12:00:00 A M EDT ORAL active [facility] ([facility]) tizanidine 4 MG Oral Tablet Tizanidine HCL 05/27/2020 12:00:00 AM EDT ORAL active [facility] ([facility] ) gabapentin 300 MG Oral Capsule Gabapentin 05/03/2020 12:00:00 AM EDT ORAL active [facility] ([facility], ) ropinirole 1 MG Oral Tablet Ropinirole HCL 04/29/2020 12:00:00 AM EDT ORAL active [facility] ([facility]) Diclofenac Sodium 0.01 MG/MG Topical Gel Diclofenac Sodium 04/28/2020 12:00:00 AM EDT active [facility] ([facility] Estradiol 0.1 MG/ML Vaginal Cream Estradiol 0.1 MG/GM Estrad iol 0.1 MG/GM 04/14/2020 12:00:00 AM EDT active Estradiol 0.1 MG/GM eCW1 ([facility]) Amlodipine 2.5 MG Oral Tablet Amlodipine Besylate 03/24/2020 12:00: 00 AM EDT ORAL completed [facility] ([facility]) Diclofenac Sodium 0.03 MG/MG Topical Gel Diclofenac Sodium 03/23/2020 12:00:00 AM EDT completed [facility] ([facility] Whisper Ject Autoinjector 03/21/2020 12:00:00 AM EDT active [facility] ([facility] ) Glatopa Glatopa 02/26/2020 12:00:00 AM EDT active [facility] ([facility] ) Glatopa Glatopa 02/26/2020 12:00:00 AM EDT SUBCUTANEOUS active [facility] ([facility], ) duloxetine 30 MG Delayed Release Oral Capsule Duloxetine HCL 01/15/2020 12:00:00 AM EDT ORAL completed [facility] ([facility]) NITROFURANTOIN, MACROCRYSTALS 25 MG / Ni trofurantoin, Monohydrate 75 MG Oral Capsule [Macrobid] Macrobid 09/10/2019 12:00:00 AM EST ORAL active [facility] ([facility]) Primidone 50 MG Oral Tablet Primidone 09/03/2019 12:00:00 AM EST ORAL completed [facility] ([facility], ) gabapentin 300 MG Oral Capsule Gabapentin 09/03/2019 12:00:00 AM EST completed [facility] ([facility], ) Insurance Providers Payer name Policy type / Coverage type Policy ID Covered democrat ID Covered democrat's relationship to richard Policy Richard Plan Information A[employer] HE[employer] CARE OPTIONS [id number] SP [id number] MEDICARE [id number] SP [id number] AARP U [id number] Self [id number] MEDICARE A [id number] Self [id number] AARP HEALTH CARE OPTIONS [id number] SP [id number] EXCELLUS H [id number] Spouse [id number] MEDICARE A [id number] Self [id number] A [facility] [id number] SP [id number] [facility] [id number] SP [id number] [employer] Health Maintenance Organization (HMO) [id number] Self [id number] [place] [employer] Medigap Part B [id number] Family Depe ndent [id number] [place] Medigap Part B [id number] Family Depe ndent [id number] [facility] Trad/[place] Medigap Part B [id number] Family Depe ndent [id number] Medicare Natl Govt Servic Medicare Primary [id number] Self [id number] [facility] Healthcare Commercial [id number] Family Dependent [id number] [place] Medigap Part B [id number] Medicare Medicare Primary [id number] Self [id number] [employer] Plans Commercial [id number] Family Dependent [id number] [facility] CARE [id number] SP [id number] ANSI-Not a Secondary Insurance [id number] ANSI-Medicare Part B [id number] ANSI-Medicare Part B [id number] ANSI-Not a Secondary Insurance [id number] [facility] Health Maintenance Organization ([facility]) [id number] Self [id number] [facility] Trad/MX Medigap Part B [id number] Family Depe ndent [id number] [facility] Trad/[place] Medigap Part B [id number] Family Depe ndent [id number] [facility] Tr[employer]/[place] Medigap Part B [id number] Family Depe ndent [id number] Medicare Natl Govt Servic Medicare Primary [id number] Self [id number] Medicare Medicare Primary [id number] Self [id number] [facility] [id number] SP [id number] [facility] Health Maintenance Organization ([facility]) [id number] Self [id number] [facility] Trad/[employer] Medigap Part B [id number] Family Depe ndent [id number] [facility] Tr[employer]/[place] Medigap Part B [id number] Family Depe ndent [id number] [facility] Tr[employer]/[place] Medigap Part B [id number] Family Depe ndent [id number] Medicare Natl Govt Servic Medicare Primary [id number] Self [id number] Medicare Medicare Primary [id number] Self [id number] [facility] O [id number] S [id number] MEDICARE C [id number] S [id number] [facility] Health Maintenance Organization ([facility]) [id number] Self [id number] [facility] [employer] Medigap Part B [id number] Family Depe ndent [id number] [facility] Tr[employer]/[place] Medigap Part B [id number] Family Depe ndent [id number] [facility] Trad/[place] Medigap Part B [id number] Family Depe ndent [id number] Medicare Natl Govt Servic Medicare Primary [id number] Self [id number] ANSI-Medicare Part B [id number] ANSI-Not a Secondary Insurance [id number] Medicare Medicare Primary [id number] Self [id number] [facility] [id number] [facility] [id number] MEDICARE [id number] SP [id number] [employer] Health Maintenance Organization (HMO) [id number] Self [id number] [place] [employer] Medigap Part B [id number] Family Depe ndent [id number] [place] [employer]/[place] Medigap Part B [id number] Family Depe ndent [id number] [place] Medigap Part B [id number] Family Depe ndent [id number] Medicare Natl Govt Servic Medicare Primary [id number] Self [id number] [employer] Commercial [id number] Family Dependent [id number] Medicare Medicare Primary [id number] Self [id number] [employer] [facility] Health Maintenance Organization (HMO) [id number] Self [id number] [place] [employer]/[place] Commercial [id number] Family Dependen t [id number] [place] [employer] Commercial [id number] Family Dependen t [id number] [place] [employer] Commercial [id number] Family Dependen t [id number] Medicare Natl Govt Servic Medicare Primary [id number] Self [id number] [employer] o Health Maintenance Organization (HMO) [id number] Self [id number] [place] [employer] Commercial [id number] Family Dependen t [id number] [place] [employer] Commercial [id number] Family Dependen t [id number] [place] [employer]/[place] Commercial [id number] Family Dependen t [id number] Medicare Natl Govt Servic Medicare Primary [id number] Self [id number] Blue [employer] Blue Shield P [id number] SELF [id number] Medicare C [id number] SELF [id number] A [facility] Medigap Part B [id number] Family Depend ent [id number] Medicare Medicare Primary [id number] Self [id number] [facility] O [id number] S [id number] MEDICARE C [id number] S [id number] A [facility] Medigap Part B [id number] Family Depend ent [id number] Medicare Medicare Primary [id number] Self 05 [id number] [place] 302/307 [id number] [id number] [employer] Blue Ppo Health Maintenance Organization (HMO) [id number] Self [id number] BS [place] Trad[employer]MX Commercial [id number] Family Dependen t [id number] BS [place] [employer] Commercial [id number] Family Dependen t [id number] BS Max Trad/MX Commercial [id number] Family Dependen t [id number] Medicare Natl Govt Servic Medicare Primary [id number] Self [id number] BS Reed/Sharon Medigap Part B [id number] Family Depend ent [id number] Medicare Medicare Primary [id number] Self 05 [id number] [place] 302/307 [id number] HU2 [id number] MEDICARE [id number] SP [id number] A BS Reed/Sharon Medigap Part B [id number] Family Depend ent [id number] Medicare Medicare Primary [id number] Self 05 [id number] BS Reed/Sharon Medigap Part B [id number] Family Depend ent [id number] Medicare Medicare Primary [id number] Self 05 [id number] EXCELLUS BCBS B [id number] S [id number] BS Reed/Sharon Medigap Part B [id number] Family Depend ent [id number] Medicare Medicare Primary [id number] Self 05 [id number] BS Reed[employer]aron Medigap Part B [id number] Family Depend ent [id number] Medicare Medicare Primary [id number] Self 05 [id number] [facility] BureauCritical access hospitalo Health Maintenance Organization (HMO) [id number] Self [id number] BS [employer] Commercial [id number] Family Dependen t [id number] BS [place] Tr[employer]MX Commercial [id number] Family Dependen t [id number] BS Max Trad/MX Commercial [id number] Family Dependen t [id number] Medicare Natl Govt Servic Medicare Primary [id number] Self [id number] BS Reed/Sharon Medigap Part B [id number] Family Depend ent [id number] Medicare Medicare Primary [id number] Self 05 [id number] BS Max Trad/MX Commercial [facility]HMO) Usbpi Self Usbpi BS [place] Trad/MX Commercial [id number] Family Dependent [id number] BS [place] Trad/MX Commercial [id number] BS [place] Trad/MX Commercial 802 Family Dependent 802 Medicare Natl Govt Servic Medicare Primary Self [place] 302/307 [id number] HU2 [id number] BS Reed/Sharon Medigap Part B Family Dependent Medicare Medicare Primary Self EXCELLUS C [id number] Self [id number] EXCELLUS H [id number] Self [id number] MEDICARE A [id number] Self [id number] [place] 302/307 [id number] HU2 [id number] [place] 302/307 [id number] HU2 [id number] Problems, Conditions, and Diagnoses Code Display Name Description Problem Type Effective Dates Data Source(s) [id number] Peripheral vascular disease Peripheral vascular diseas e Problem 10/23/2019 12:00:00 AM [facility] ([facility] G35 Multiple sclerosis Multiple sclerosis Diagnosis 0 05:47:48 PM [facility] G82.20 Paraplegia, unspecified Paraplegia, unspecified Diagno sis 08/31/2020 09:30:03 AM [facility] R25.1 Tremor, unspecified Tremor, unspecified Diagnosis 1 11/01/2019 08:59:49 AM [facility] R53.1 Weakness Weakness Diagnosis 08/31/2020 08:59:49 AM [facility] E55.9 Vitamin D deficiency, unspecified Vitamin D defi ciency, unspecified Diagnosis 08/26/2020 04:46:55 PM [facility] Surgeries/Procedures Procedure Description Date Indications Data Source(s) DEBRIDEMENT NAIL ANY METHOD 08/24/2020 12:00:00 AM EST [facility] ([facility] DEBRIDEMENT NAIL ANY METHOD 03/23/2020 12:00:00 AM EDT [facility] ([facility] MRI Brain W/O Contrast, Followed By Contrast 0 12:00:00 AM EDT [facility] ([facility], ) MRI Brain W/O Contrast, Followed By Contrast 0 12:00:00 AM EDT [facility] ([facility], ) MRI Spine Cervical W/O Contrast, Followed By Contrast 03/07/2020 12:00:00 AM EDT [facility] ([facility], ) MRI Spine Cervical W/O Contrast, Followed By Contrast 03/07/2020 12:00:00 AM EDT [facility] ([facility], ) MRI Spine Thoracic W/O Contrast, Followed By Contrast 03/07/2020 12:00:00 AM EDT [facility] ([facility], ) MRI Spine Thoracic W/O Contrast, Followed By Contrast 03/07/2020 12:00:00 AM EDT [facility] ([facility], ) DEBRIDEMENT NAIL ANY METHOD 10/16/2019 12:00:00 AM EST [facility] ([facility] MRI Brain W/O Contrast, Followed By Contrast 0 12:00:00 AM EST [facility] ([facility]) MRI Brain W/O Contrast, Followed By Contrast 0 12:00:00 AM EST [facility] ([facility]) MRI Spine Cervical W/O Contrast, Followed By Contrast 10/05/2019 12:00:00 AM EST [facility] ([facility]) MRI Spine Cervical W/O Contrast, Followed By Contrast 10/05/2019 12:00:00 AM EST [facility] ([facility]) MRI Spine Thoracic W/O Contrast, Followed By Contrast 10/05/2019 12:00:00 AM EST [facility] ([facility]) MRI Spine Thoracic W/O Contrast, Followed By Contrast 10/05/2019 12:00:00 AM EST [facility] ([facility]) Results ID Date Data Source [id number] 10/26/2020 02:27:04 PM EST [facility] Name Value Range Interpretation Code Description Data Herlinda rce(s) Supporting Document(s) Progress Note [facility] JDQZWw6pNcNAVdKs28/MGUqwUZLnw2CfUZpdQWy2AIwoFNFaQ0IoUYQ9mU3mYQP1AJuMGsTmGgQyByGg [facility] [file] information engineer+LdF7izgJFNlYJow7IyX7gMoWTXpoyBXcyolV3VhuBmrHpjDDQS0QlK+OV+4DXgLeoGBIHRgFe+Xo [file] AgICAgICAgICAgICAgICAgICAgICAgICAgICAgICAgICAgICAgICAgICAgICAgICAgICAgICAgICAgIC AgICAgICAgICAgICAgICAgICAgICAgICAgICAgDQog ICAgICAgICAgICAgICAgICAgICAgICAgICAgICAgICAgICAgICAgICAgICAgICAgICAgICAgICAgICAg ICAgICAgICAgICAgICAgICAgICAgICAgICAgICAgICAgICAgICAgDQogICAgICAgICAgICAgICAgICAg ICAgICAgICAgICAgICAgICAgICAgICAgICAgICAgIC AgICAgICAgICAgICAgICAgICAgICAgICAgICAgICAgICAgICAgICAgICAgICAgICAgDQogICAgICAgIC AgICAgICAgICAgICAgICAgICAgICAgICAgICAgICAgICAgICAgICAgICAgICAgICAgICAgICAgICAgIC AgICAgICAgICAgICAgICAgICAgICAgICAgICAgICAg DQogICAgICAgICAgICAgICAgICAgICAgICAgICAgICAgICAgICAgICAgICAgICAgICAgICAgICAgICAg ICAgICAgICAgICAgICAgICAgICAgICAgICAgICAgICAgICAgICAgICAgDQogICAgICAgICAgICAgICAg ICAgICAgICAgICAgICAgICAgICAgICAgICAgICAgIC AgICAgICAgICAgICAgICAgICAgICAgICAgICAgICAgICAgICAgICAgICAgICAgICAgICAgDQogICAgIC AgICAgICAgICAgICAgICAgICAgICAgICAgICAgICAgICAgICAgICAgICAgICAgICAgICAgICAgICAgIC AgICAgICAgICAgICAgICAgICAgICAgICAgICAgICAg ICAgDQogICAgICAgICAgICAgICAgICAgICAgICAgICAgICAgICAgICAgICAgICAgICAgICAgICAgICAg ICAgICAgICAgICAgICAgICAgICAgICAgICAgICAgICAgICAgICAgICAgICAgDQogICAgICAgICAgICAg ICAgICAgICAgICAgICAgICAgICAgICAgICAgICAgIC AgICAgICAgICAgICAgICAgICAgICAgICAgICAgICAgICAgICAgICAgICAgICAgICAgICAgICAgDQogIC AgICAgICAgICAgICAgICAgICAgICAgICAgICAgICAgICAgICAgICAgICAgICAgICAgICAgICAgICAgIC AgICAgICAgICAgICAgICAgICAgICAgICAgICAgICAg RERsIXMzVNm3F8grGERkXHFrBS9mAIn7Ju9+XMbFPcHjMHW1jaBgtI1CRW0xe8MiXEkxCCKir8JmYTw5 EE7KSUBjXBwdMR4PVEexze7DRMBeQJIegKOJi4kxUtOdUYA3QRAlBjndMW8PTBFpC0zkedJrTRJwQKMR IDcgMCBSIDkgMCBSIDExIDAgUiAxMyAwIFIgMTUgMC YACX5IFuBoK5FjpR45MSIJRd0+YKsxinDgWmdQBcFeWPZao3FtRGc7HR4UFPVfOdhdo5IiJuNwWBNPXN lqAT6CTVY0QYGsEQVtTz7EOKCvG994hkNkPY6TMd5CRcRcTR6kaf5MCbMrZVCkAthGRub8SYhhYT0DcE HmEYqSqg9wfbMjktHWp2ImrnGfvVLSWOFjanWpVLyo LyDpDx1zDHstBsNgRQGnNf5lIdZyPrTfQDG5PNIzIP6bPCqbXP3LOGO1YVyfPUQnHSKgA1jJAoJtFBKl SeOdtZdfNT9CWsUiW6FfznHseXWdFfBvIHMLGo3+NVirghUbZqoFEzL4KRJzs0YpBWk4LP9UBBKiTPys YG4LYPCjyV6gIRbfMM8CWmDvUDKcCHFMZaOdD75epB ZkLBc0L9JoVjIzPHJuXkotHTVoUVwsLjHoHATdNmQnGZplSV0+ID4+YCbnSW3LTPsihtLrCHYvHx0LCD XaUHPvMK2sCPOyNFVgM4N3iTeaVAPPZaHoV0njomaoTQ5bTSEpC989cZmjulEkHPTgHMAnHf7JJPXfFY C5FIHywESqLvEbPFPLYAfjBR0VhGOyOTF3sF7tRBug KTZeQLAoT3cDJvTvqEnhTF55vJhznkCfqDWjHWg+Ha6DYL1yj3LlQPl2zfOfOVfwEUZ4UZmuKCRoGVIj WGZiXKT7BHF3XJECJhTdYTMiLCQyTKwaUJVrDEEktl2JJGXlUPQmJwC0UvLbEVPeUSUiKGstUZKiFGO9 DiC6SNPsPTOpKF9TSaPvAZHpONUyALngKEJaTQIuuj 5QIBNgHWIlMiQfWxSdSQVjSCQjRIbzNOMpEKHgAIOvCVBpSLDtUB1XZaLqBWSdBQe0OYXlVCVyVNGszp 0YKKTyTWCyFql2SQPjNGTnDQVnAQveQFUiOJWyFcH5SJAfKUAzVH5YPfNuFVAyTHK2BmXjHEByLATgot 5ZJUKfVRAvHkhqPvLgLRYsSUWeFHcjYYGjSDF0SPCx OJIyKMClVV8XMjJoODIpLCl2BlEbLQNeWYRldn8RKSFbGKBlQGV2ESBqLDTxGUOoZRwkYMAfVYD7FEK0 FQUuDJKwUF4TOxWoKXLkRzMnYZAjHEAbPXRivu7QKTYwTFLdJQE1YtYhIQCjQILoWZjhWEShZODhXyZ6 QPImCGYrGT1DQnLuOQFyYxR3VFGfIMEfOUOxoi1AWG WtNCMoEdMzBFPwTUObNYCvIQugJTAuVWSkRsPnWQUkVEFbOH2EMfEvZHVhDuI8XHTlAKZlSQSyqx5DSA KrRTAgDCLvGBMmPCDlNFKnYLqsRPTdGFZ0HID8TGOkQSSbEA7DKhQhPBHzHyF7PuBhAPJnBBSrkm9XME XgPZVzQUWmOVIsESHhXUJjSBzhJFYzTVA4GVQzZQSf YKTzTP5WTdEuGDQnYgAyHVRmWMDwHVUtse5RSSUyYXMjVeE8IbLpXTSvIADqZAxaDPTwCNN2QZtbPZMl PJLwQX8PMxLkIVEvHcY0MMxtXNIeBOExca5ZHUFuPEKoPPU1DPYvZCLqTFQyDOyhCJGrIEG9NLXfPCWo TTPiUV0NOuMwEHEuVwx2YKNqEPSqULWdnj0YaIJayF qazx1VXWgWZf2WxWlgIDC5DWuzDv1bjPIvGQVpTKDRDl3UayQaILMzFRKFRKydTXWjQUErCmK5HOXxJS JmNpQeLDUxFzH8Fva6NFX0WrBqC7P7GqW3M5FyDPq6UIT5ItT2ICV7LaK0KwtyHsgvMDOdOsFfLen+IF 0gDQo+Cf0Ye3JbyhI4qiWmTPjrFPulYL0GCALAC4ANQa== ID Date Data Source [id number] 09/13/2020 03:07:00 PM EST [facility] ([facility]) Name Value Range Interpretation Code Description Data Herlinda rce(s) Supporting Document(s) White Blood Count 6.9 10 4.0-10.0 [facility] ([facility]) Hematocrit 42.7 % 36.0-47.0 [facility] ([facility]) Red Blood Count 4.64 10 4.00-5.40 [facility] ([facility]) Hemoglobin 14.2 g/dL 12.0-15.5 [facility] ([facility]) Mean Corpuscular HGB Conc 33.3 g/dL 32.0-36.5 [facility] ([facility]) Mean Corpuscular Volume 92.0 fl 80.0-96.0 [facility] ([facility]) Red Cell Distribution Width 11.7 % 11.5-14.5 [facility] ([facility]) Mean Corpuscular Hemoglobin 30.6 pg 27.0-33.0 [facility] ([facility]) Platelet Count, Automated 373 10 150-450 [facility] ([facility]) Lymph % 9.8 % 24.0-44.0 [facility]) Neutrophils % 79.7 % 36.0-66.0 [facility] ([facility]) Baso % 0.6 % 0.0-1.0 [facility]) [place] % 7.9 % 0.0-5.0 [facility]) Eos % 1.7 % 0.0-3.0 [facility] ([facility]) Immature Granulocyte % 0.3 % 0-3.0 [facility] ([facility]) Lymph # 0.7 10 1.5-5.0 [facility] ([facility]) Neutrophils # 5.5 10 1.5-8.5 [facility] ([facility]) Nucleated Red Blood Cell % 0.0 % 0-0 [facility] ([facility]) Baso # 0.0 10 0.0-0.2 [facility] ([facility]) Eos # 0.1 10 0.0-0.5 [facility] ([facility]) [place] # 0.5 10 0.0-0.8 [facility] ([facility]) ID Date Data Source [id number] 09/13/2020 03:07:00 PM EST [facility] ([facility]) Name Value Range Interpretation Code Description Data Herlinda rce(s) Supporting Document(s) Blood Urea Nitrogen 14 mg/dL 7-18 [facility] ([facility]) Glucose, Fasting 96 mg/dL 70-100 [facility] ([facility]) Creatinine For GFR 0.61 mg/dL 0.55-1.30 [facility] ([facility]) Sodium Level 138 meq/L 136-145 [facility] ([facility]) Glomerular Filtration Rate Laboratory test result [facility] ([facility]) <content>Units are mL/min/1.73 m2</content>
<content></content>
<content>Chronic Kidney Disease Staging per NKF:</content>
<content></content>
<content>Stage I & II GFR >=60 Normal to Mildly Decreased</content>
<content>Stage III GFR 30- 59 Moderately Decreased</content>
<content>Stage IV GFR 15-29 Severely Decreased</content>
<content>Stage V GFR <15 Very Little GFR Left</content>
<content>ESRD GFR <15 on BUS OR TRUCK GARAGE MECHANIC</content>
<content></content> Carbon Dioxide Level 29 meq/L 21-32 [facility] ([facility]) Chloride Level 105 meq/L 98-107 [facility] ([facility]) Anion Gap 4 meq/L 8-16 [facility] ([facility]) Potassium Serum 4.4 meq/L 3.5-5.1 [facility] ([facility]) Ast/Sgot 12 U/L 7-37 [facility] ([facility]) Alt/SGPT 23 U/L 12-78 [facility] ([facility]) Calcium Level 9.7 mg/dL 8.8-10.2 [facility] ([facility]) Bilirubin,Total 0.5 mg/dL 0.2-1.0 [facility] ([facility]) Alkaline Phosphatase 125 U/L 45-117 [facility] ([facility]) Total Protein 7.2 GM/DL 6.4-8.2 [facility] ([facility]) Albumin 4.2 GM/DL 3.2-5.2 [facility] ([facility]) Albumin/Globulin Ratio 1.4 1.2-2.2 [facility] ([facility]) ID Date Data Source [id number] 09/13/2020 03:07:00 PM EST [facility] ([facility]) Name Value Range Interpretation Code Description Data Herlinda rce(s) Supporting Document(s) Bilirubin,Direct 0.2 mg/dL 0.0-0.2 [facility] ([facility]) ID Date Data Source [id number] 09/13/2020 03:07:00 PM EST [facility] ([facility]) Name Value Range Interpretation Code Description Data Herlinda rce(s) Supporting Document(s) IgA [Mass/volume] in Serum or Plasma 211.0 mg/dL 70-400 [facility] ([facility]) ID Date Data Source [id number] 09/13/2020 03:07:00 PM [facility] Name Value Range Interpretation Code Description Data Herlinda rce(s) Supporting Document(s) Hepatitis B Surface Antigen Laboratory test result [facility] ([facility]) Hepatitis C Virus Brandi Index 0.1 INDEX [facility] Negative Not infected with HCV, unless recent infection is suspected or other evidence exists to indicate HCV infection. Hepatitis A Antibody Igm Laboratory test result [facility] Hepatitis B Core Antibody Igm Laboratory test result [facility] ID Date Data Source [id number] 09/13/2020 03:07:00 PM EST [facility] Name Value Range Interpretation Code Description Data Herlinda rce(s) Supporting Document(s) Folate [Mass/volume] in Red Blood Cells 10.3 ng/mL [facility] FOLATE NORMAL RANGE NORMAL GREATER THAN 5.4 NG/ML INDETERMINATE 3.4-5.4 NG/ML DEFICIENT LESS THAN 3.4 NG/ML Cobalamin (Vitamin B12) [Mass/volume] in Serum or Plasma 548 pg/mL 2 47-911 [facility] VITAMIN B12 NORMAL RANGE NORMAL 247 - 911 PG/ML INDETERMINATE 211 - 246 PG/ML DEFICIENT LESS THAN 211 PG/ML Hepatitis B virus surface Ab [Presence] in Serum by Im munoassay Laboratory test result [facility] ([facility] ) Miscellaneous Test Lab Laboratory test result [facility] ([facility]) See Separate Report Testing performed at reference lab . Report copy to follow on a separate form. 09/23/20 REF LAB#:[id number] Order this test in the future with mneumonic [] . [place] = [] , CPT CODES = []. Sample was sent to [] . Specimen requirements are [] . Please call the lab with any other questions. HIV 1+2 Ab [Presence] in Serum Laboratory test result [facility] ([facility]) <content>This assay was performed utiliz ing a chemiluminescent</content>
<content>principle technique for the simultaneous qualitative</content>
<content>detection of HIV-1 p24 antigen & antibodies to HIV-1</content>
<content>(including group O) & HIV-2 using the Siemens Centaur XP</content>
<content>system.</content>
<content>The estimated 95% confidence interval for sensitivity of</content>
<content>this antigen/antibody combination assay for HIV-1&2</content>
<content>antibodies is 99.7-100% and HIV p24 antigen is 89.4-99.9%.</content>
<content>The estimated 95% confidence interval for specificity of</content>
<content>this antigen/antibody combination in low risk populations is</content>
<content>99.6-99.8%.</content>
<content></content> Calcidiol [Mass/volume] in Serum or Plasma 23.5 ng/mL 30.0-100.0 [facility] ([facility]) ID Date Data Source [id number] 09/13/2020 03:07:00 PM EST [facility] ([facility]) Name Value Range Interpretation Code Description Data Herlinda rce(s) Supporting Document(s) Methylmalonate [Moles/volume] in Serum or Plasma Laboratory test resu lt [facility] ([facility]) SEE SEPARATE REPORT Antinuclear Antibodies Laboratory test result [facility] ([facility]) See Separate Report Testing performed at reference lab. Report copy to follow on a separate form. 09/30/20 REF LAB#:[id number] Herpes Zoster, Varicella IgG Laboratory test result [facility] ([facility]) SEE SEPARATE REPORT Ceruloplasmin [Mass/volume] in Serum or Plasma Laboratory test result [facility] ([facility]) SEE SEPARATE REPORT Copper [Mass/volume] in Serum or Plasma Laboratory test result [facility] ([facility]) SEE SEPARATE REPORT Zinc [Mass/volume] in Serum or Plasma Laboratory test result [facility] ([facility]) See Separate Report Aquaporin 4 receptor IgG Ab [Units/volum e] in Serum or Plasma by Immunofluorescence Laboratory test result [facility] ([facility]) ID Date Data Source [id number] 09/13/2020 03:07:00 PM EST [facility] Name Value Range Interpretation Code Description Data Herlinda rce(s) Supporting Document(s) Interpretation Laboratory test result [facility] ([facility]) SEE SEPARATE REPORT JCV Antibody Laboratory test result [facility] ([facility]) SEE SEPARATE REPORT Index Value Laboratory test result [facility] ([facility]) SEE SEPARATE REPORT JCV Antibody By Inhibition Laboratory test result [facility] ([facility]) SEE SEPARATE REPORT Interpretation Laboratory test result [facility] ([facility]) SEE SEPARATE REPORT ID Date Data Source [id number] 09/13/2020 03:07:00 PM EST [facility] Name Value Range Interpretation Code Description Data Herlinda rce(s) Supporting Document(s) Homocysteine [Moles/volume] in Serum or Plasma Laboratory test result [facility] ([facility]) SEE SEPARATE REPORT Laboratory test finding (navigational concept) Laboratory test result [facility] REFERENCE INTERVAL: Negative No informative autoantibodies were detected in this evaluation. A negative result does not preclude a diagnosis of an inflammatory [employer] demyelinating disorder. ADDITIONAL INFORMATIO N This test was developed and its performance characteristics determined by [facility] in a manner consistent with CLIA requirements. This test has not been cleared or approved by the U.S. Food and Drug Administration. ID Date Data Source [id number] 09/22/2020 05:05:00 PM EST [facility] Name Value Range Interpretation Code Description Data [facility](s) Supporting Document(s) 2C9 Genotype [facility] Interpretation [facility] The standard maintenance dose (2 mg once daily) isrecommended.DNA analysis is performed by allele-specific real-timepolymerase chain reaction (PCR) to detect the *2 and *3alleles in the CYP2C9 gene. No other variants in this geneare detected by this assay. Molecular-based testing ishighly accurate, but as in any laboratory test rarediagnostic errors may occur.Cytochrome P450 CYP2C9 is involved in the metabolism ofseveral clinically important drugs in addition tosiponimod. Individuals with CYP2C9 *2 or *3 alleles mayexperience a reduced therapeutic response and may be atincreased risk for side effects from drugs that aremetabolized by CYP2C9. The exact effect of a particulargenotype on individual drugs can vary. About 20% of the[facility] population have at least one *2 or *3 variant.These variants are rare in and populations.The metabolism of drugs is also influenced by race,ethnicity, diet and other medications and all factorsshould be considered prior to initiating new therapy. Allresults must be interpreted in the context of other testresults and clinical findings. This result does not ruleout the possibility of variant alleles in other drugmetabolism pathways. Patients should speak with theirhealth care provider about the individual results of thistest.[employer] (siponimod) [package insert]. [place], [place]:[employer]; 2019.For more information on interpreting this report, pleasevisit [email or web address] or call Customer Service [phone] between the hours of 6:30am to 5:00pm through Saturday.This assay meets the standards for performanc echaracteristics and all other quality management nurse and assurancerequirements established by CLIA. The results should not beused as the sole criteria for patient management. This testwas developed and its performance characteristicsdetermined by [employer]. It has not been clearedor approved by the FDA. This document contains private andconfidential health information protected by state andfederal law. If you have received this document in error,please call [phone]. The provision of this free testis not contingent on any requirement to utilize or purchasethis test, or any other product or service, in the future.Additionally, provision of this free test by [employer] is a form of patient supportwith no independent value and is not intended to influencethe independent medical judgment of any health careprovider. Because this test is being provided to thepatient free of charge to determine the clinicalappropriateness and/or appropriate dosing of siponimod, aclaim for reimbursement may not be submitted for this testto any insurer, including commercial insurers or federalhealth care programs such as Medicare and Medicaid. Director Review: [facility] Pk Gracia MD, PhDDirectorMonogram B iosciences PDF . [facility] ID Date Data Source [id number] 09/19/2020 07:05:00 PM EST [facility] Name Value Range Interpretation Code Description Data Hrelinda rce(s) Supporting Document(s) [employer] ASA Informed Consent Form [facility] Please Fax back to [phone] Many [address] ates require laboratoriesto have documentation that the appropriate health care providerhas obtained informed consent from patients before the laboratoryconducts genetic testing. Informed consent includes the patientunderstanding the purpose of the test, how the test is performed,the reliability of the test, alternatives to testing, implicationsof test results, and options on how to instruct the laboratory tostore, use or dispose of the sample when testing is complete. [facility] did not receive any documentation of informed consentfor above mentioned patient and ordered tests. Please check thestatement applicable to this patient and sign below so that [facility] release the results for this patient. [] I authorize and confirm patient consent for the above mentionedgenetic test(s). [] I have provided appropriate informed consent for the above mentioned test(s) and documentation of this consent is maintained in the patient record. Health care provider signature Date Printed name Fax back to [facility] at [phone] [facility] ID Date Data Source [id number] 08/31/2020 05:58:[address] [facility] Name Value Range Interpretation Code Description Data Herlinda rce(s) Supporting Document(s) Progress Note [facility] [id number] [facility] [file] [id number] ID Date Data Source [id number] 08/15/2020 02:20:00 PM EST [facility] ([facility]) Name Value Range Interpretation Code Description Data Herlinda rce(s) Supporting Document(s) JCV Antibody Laboratory test result [facility] ([facility]) <content>Index interpretive criteria:</c ontent>
<content><0.20 negative</content>
<content>0.20-0.40 indeterminate</content>
<content>>0.40 positive</content>
<content></content> Interpretation Laboratory test result [facility] ([facility] [facility]) . Negative: Antibodies to JCV not detected. [...] index.1 . 1TYSABRI (natalizumab) [place] Prescribing Information. Index Value 0.14 [facility] Interpretation Laboratory test result [facility] ([facility]) . Positive: Antibodies to MAYRA virus (JCV) detected indicating the patient has been exposed to JCV at an undetermined time Negative: Antibodies to JCV not detected Performed at: [facility] [address] [place], [place] [id number] Cell Operation Supervisor: Farooq Askew MD, Phone: [phone] Performed at: RN - [facility] [address] [id number] Cell Operation Supervisor: Vale Kilpatrick MD, Phone: [phone] JCV Antibody By Inhibition Laboratory test result [facility] ([facility]) ID Date Data Source [id number] 08/15/2020 02:18:00 PM EST [facility]) Name Value Range Interpretation Code Description Data Herlinda rce(s) Supporting Document(s) Urea nitrogen [Mass/volume] in Serum or Plasma 16 mg/dL 7-18 [facility] ([facility]) Glucose [Mass/volume] in Serum or Plasma 93 mg/dL 74-99 [facility] ([facility]) 100-125 mg/dL PRE-DIABETES/FASTING >126 mg/dL DIABETES/FASTING Creatinine 0.5 mg/dL 0.6-1.3 [facility] ([facility]) Potassium [Moles/volume] in Serum or Plasma 4.6 meq/L 3.5-5.1 [facility] ([facility]) Sodium [Moles/volume] in Serum or Plasma 139 meq/L 136-145 [facility] ([facility]) Chloride [Moles/volume] in Serum or Plasma 102 meq/L 98-107 [facility] ([facility]) Carbon dioxide, total [Moles/volume] in Serum or Plasma 29 meq/L 21 -32 [facility] ([facility]) Calcium [Mass/volume] in Serum or Plasma 9.5 mg/dL 8.5-10.1 [facility] ([facility]) Total Bilirubin 0.5 mg/dL 0.2-1.0 [facility] ([facility]) Alkaline phosphatase isoenzyme [Units/volume] in Serum or Pl asma 92 mg/dL 46-116 [facility] ([facility]) Albumin [Mass/volume] in Serum or Plasma 4.0 g/dL 3.4-5.0 [facility] ([facility]) Alanine aminotransferase [Enzymatic activity/volume] in Seru m or Plasma 20 U/L 12-78 [facility] ([facility]) Aspartate aminotransferase [Enzymatic activity/volume] in Serum or Plasma 14 U/L 15-37 [facility] ([facility] ) Glomerular filtration rate/1.73 sq M pre dicted among non-blacks [Volume Rate/Area] in Serum or Plasma by Creatinine-based formula (MDRD) Laboratory test result [facility] ([facility] ) Proteinase 3 Ab [Units/volume] in Serum 7.0 g/dL 6.4-8.2 [facility] ([facility]) A/G Ratio 1.33 CALC 1.00-1.90 [facility] Glomerular filtration rate/1.73 sq M pre dicted among blacks [Volume Rate/Area] in Serum or Plasma by Creatinine-based formula (MDRD) Laboratory test result [facility] <content>CHRONIC KIDNEY DISEASE STAGING PER NKF</content>
<content></content>
<content>STAGE I & II GFR >= 60 NORMAL TO MILDLY DECREASED</content>
<content>STAGE III GFR 30-59 MODERATELY DECREASED</content>
<content>STAGE IV GFR 15-29 SEVERELY DECREASED</content>
<content>STAGE V GFR <15 VERY LITTLE GFR LEFT</content>
<content>ESRD GFR <15 ON BUS OR TRUCK GARAGE MECHANIC</content>
<content></content> ID Date Data Source [id number] 08/15/2020 02:18:00 PM EST [facility] ([facility]) Name Value Range Interpretation Code Description Data Herlinda rce(s) Supporting Document(s) Leukocytes [#/volume] in Blood by Automated count 6.8 x10*3/UL 4.1-10 .9 [facility] ([facility]) Erythrocytes [#/volume] in Blood by Automated count 4.55 x10*6/UL 4.2 0-6.30 [facility] ([facility]) Hemoglobin [Mass/volume] in Blood 14.4 g/dL 12.0-18.0 [facility] Hematocrit [Volume Fraction] of Blood by Automated count 41.2 % 3 7.0-51.0 [facility] ([facility]) MCH 31.7 pg 26.0-32.0 [facility] ([facility]) MCHC 35.0 g/dL 31.0-38.0 [facility] ([facility]) MCV 90.4 fL 80.0-97.0 [facility] ([facility]) Platelets [#/volume] in Blood by Automated count 340 x10*3/UL 140-440 [facility] Erythrocyte distribution width [Ratio] by Automated count 12.4 % 11.6-13.7 [facility] ([facility]) Lymph % 10.1 % 10.0-58.5 [facility] ([facility]) MPV 7.8 FL 7.8-11.0 [facility] ([facility]) Neut % 87.3 % 37.0-92.0 [facility] ([facility]) Mid % 2.6 % 1.7-9.3 [facility]) Lymph # 0.6 x10*3/UL 0.6-4.1 [facility] ([facility]) Neut # 5.9 x10*3/UL 2.0-7.8 [facility] ([facility]) Mid # 0.3 x10*3/UL 0.1-0.6 [facility] ([facility]) ID Date Data Source [id number] 07/27/2020 01:28:00 PM EST [facility] ([facility]) Name Value Range Interpretation Code Description Data Herlinda rce(s) Supporting Document(s) MAYRA Virus Dna PCR Whole Blood Laboratory test result [facility] ([facility]) No JCV DNA detected This test was developed and its performance characteristics determined by [employer]. It has not been cleared or approved by the Food and Drug Administration. The FDA has determined that such clearance or approval is not necessary. Performed at: [address] [id number] Cell Operation Supervisor: Grupo Silvestre MD, Phone: [phone] ID Date Data Source [id number] 07/27/2020 01:28:00 PM EST [facility] ([facility]) Name Value Range Interpretation Code Description Data Herlinda rce(s) Supporting Document(s) MAYRA virus DNA [Units/volume] (viral load) in Blood by Probe and target amplification method Laboratory test result [facility] ([facility]) ID Date Data Source [id number] 07/27/2020 01:26:00 PM EST [facility] ([facility]) Name Value Range Interpretation Code Description Data Herlinda rce(s) Supporting Document(s) Leukocytes [#/volume] in Blood by Automated count 6.4 x10*3/UL 4.1-10 .9 [facility] ([facility]) Erythrocytes [#/volume] in Blood by Automated count 4.55 x10*6/UL 4.2 0-6.30 [facility] ([facility]) Hemoglobin [Mass/volume] in Blood 14.5 g/dL 12.0-18.0 [facility] ([facility]) MCH 31.8 pg 26.0-32.0 [facility] Hematocrit [Volume Fraction] of Blood by Automated count 40.5 % 3 7.0-51.0 [facility] ([facility]) MCV 89.0 fL 80.0-97.0 [facility]) MCHC 35.8 g/dL 31.0-38.0 [facility] Platelets [#/volume] in Blood by Automated count 335 x10*3/UL 140-440 [facility] ([facility]) Erythrocyte distribution width [Ratio] by Automated count 12.0 % 11.6-13.7 [facility] ([facility]) MPV 7.9 FL 7.8-11.0 [facility]) Lymph % 7.1 % 10.0-58.5 [facility] Neut % 85.5 % 37.0-92.0 [facility] Lymph # 0.4 x10*3/UL 0.6-4.1 [facility] ([facility]) Mid % 7.4 % 1.7-9.3 [facility] Neut # 5.5 x10*3/UL 2.0-7.8 [facility] ([facility]) Mid # 0.5 x10*3/UL 0.1-0.6 [facility] ([facility]) ID Date Data Source [id number] 06/30/2020 01:21:00 PM EDT [facility] ([facility] ) Name Value Range Interpretation Code Description Data Herlinda rce(s) Supporting Document(s) MAYRA Virus Dna PCR Whole Blood Laboratory test result [facility] ([facility] ) No JCV DNA detected This test was developed and its performance characteristics determined by [employer]. It has not been cleared or approved by the Food and Drug Administration. The FDA has determined that such clearance or approval is not necessary. Performed at: [address] [id number] Cell Operation Supervisor: Grupo Silvestre MD, Phone: [phone] ID Date Data Source [id number] 06/30/2020 01:21:00 PM EDT [facility] ([facility]) Name Value Range Interpretation Code Description Data Herlinda rce(s) Supporting Document(s) MAYRA virus DNA [Units/volume] (viral load) in Blood by Probe and target amplification method Laboratory test result [facility] ([facility]) ID Date Data Source [id number] 06/30/2020 01:21:00 PM EDT [facility] ([facility]) Name Value Range Interpretation Code Description Data Herlinda rce(s) Supporting Document(s) MAYRA Virus Dna PCR Whole Blood Laboratory test result [facility] No JCV DNA detected This test was developed and its performance characteristics determined by [employer]. It has not been cleared or approved by the Food and Drug Administration. The FDA has determined that such clearance or approval is not necessary. Performed at: [address] [id number] Cell Operation Supervisor: Grupo Silvestre MD, Phone: [phone] ID Date Data Source [id number] 06/30/2020 01:19:00 PM EDT [facility] ([facility]) Name Value Range Interpretation Code Description Data Herlinda rce(s) Supporting Document(s) Glucose [Mass/volume] in Serum or Plasma 83 mg/dL 74-99 [facility] ([facility]) 100-125 mg/dL PRE-DIABETES/FASTING >126 mg/dL DIABETES/FASTING Urea nitrogen [Mass/volume] in Serum or Plasma 22 mg/dL 7-18 [facility] ([facility]) Creatinine 0.6 mg/dL 0.6-1.3 [facility] ([facility]) Sodium [Moles/volume] in Serum or Plasma 140 meq/L 136-145 [facility] ([facility]) Chloride [Moles/volume] in Serum or Plasma 105 meq/L 98-107 [facility] ([facility]) Potassium [Moles/volume] in Serum or Plasma 4.8 meq/L 3.5-5.1 [facility] ([facility]) Calcium [Mass/volume] in Serum or Plasma 9.1 mg/dL 8.5-10.1 [facility] ([facility]) Alkaline phosphatase isoenzyme [Units/volume] in Serum or Pl asma 94 mg/dL 46-116 [facility] ([facility]) Carbon dioxide, total [Moles/volume] in Serum or Plasma 30 meq/L 21 -32 [facility] Total Bilirubin 0.5 mg/dL 0.2-1.0 [facility] ([facility]) Aspartate aminotransferase [Enzymatic activity/volume] in Serum or Plasma 10 U/L 15-37 [facility] ([facility] ) Proteinase 3 Ab [Units/volume] in Serum 6.6 g/dL 6.4-8.2 [facility] ([facility]) Albumin [Mass/volume] in Serum or Plasma 3.8 g/dL 3.4-5.0 [facility] ([facility]) Alanine aminotransferase [Enzymatic activity/volume] in Seru m or Plasma 19 U/L 12-78 [facility] A/G Ratio 1.36 CALC 1.00-1.90 [facility] Glomerular filtration rate/1.73 sq M pre dicted among non-blacks [Volume Rate/Area] in Serum or Plasma by Creatinine-based formula (MDRD) Laboratory test result [facility] ([facility] ) Glomerular filtration rate/1.73 sq M pre dicted among blacks [Volume Rate/Area] in Serum or Plasma by Creatinine-based formula (MDRD) Laboratory test result [facility] <content>CHRONIC KIDNEY DISEASE STAGING PER NKF</content>
<content></content>
<content>STAGE I & II GFR >= 60 NORMAL TO MILDLY DECREASED</content>
<content>STAGE III GFR 30-59 MODERATELY DECREASED</content>
<content>STAGE IV GFR 15-29 SEVERELY DECREASED</content>
<content>STAGE V GFR <15 VERY LITTLE GFR LEFT</content>
<content>ESRD GFR <15 ON BUS OR TRUCK GARAGE MECHANIC</content>
<content></content> ID Date Data Source [id number] 06/30/2020 01:19:00 PM EDT [facility] ([facility]) Name Value Range Interpretation Code Description Data Herlinda rce(s) Supporting Document(s) Erythrocytes [#/volume] in Blood by Automated count 4.47 x10*6/UL 4.2 0-6.30 [facility] ([facility]) Leukocytes [#/volume] in Blood by Automated count 6.0 x10*3/UL 4.1-10 .9 [facility] ([facility]) NOTE: RESULT VERIFIED. Hematocrit [Volume Fraction] of Blood by Automated count 39.8 % 3 7.0-51.0 [facility] ([facility]) Hemoglobin [Mass/volume] in Blood 14.2 g/dL 12.0-18.0 [facility] ([facility]) MCV 89.0 fL 80.0-97.0 [facility] ([facility]) MCH 31.7 pg 26.0-32.0 [facility] ([facility]) MCHC 35.7 g/dL 31.0-38.0 [facility] ([facility]) Erythrocyte distribution width [Ratio] by Automated count 11.9 % 11.6-13.7 [facility] ([facility]) MPV 7.7 FL 7.8-11.0 [facility] ([facility]) Platelets [#/volume] in Blood by Automated count 305 x10*3/UL 140-440 [facility] ([facility]) Mid % 2.4 % 1.7-9.3 [facility] ([facility]) Lymph % 8.1 % 10.0-58.5 [facility] ([facility]) Neut % 89.5 % 37.0-92.0 [facility] ([facility]) Mid # 0.2 x10*3/UL 0.1-0.6 [facility] ([facility]) Lymph # 0.4 x10*3/UL 0.6-4.1 [facility] ([facility]) Neut # 5.4 x10*3/UL 2.0-7.8 [facility] ([facility]) ID Date Data Source [id number] 03/24/2020 02:19:00 PM EDT [facility] ([facility]) Name Value Range Interpretation Code Description Data Herlinda rce(s) Supporting Document(s) Neutrophils 72 % 28-66 [facility] ([facility]) Eosinophils 8 % 0-3 [facility] ([facility]) Lymphocytes 8 % 16-44 [facility] ([facility]) Bands 1 % [facility]) Basophils 4 % 0-1 [facility]) Atypical Lymph 7 % 0-5 [facility] ([facility]) RBC Morphology Laboratory test result [facility] ([facility]) Platelet Estimate Laboratory test result [facility] ([facility]) ID Date Data Source [id number] 03/24/2020 02:19:00 PM EDT [facility] ([facility]) Name Value Range Interpretation Code Description Data Herlinda rce(s) Supporting Document(s) Cholesterol [Mass/volume] in Serum or Plasma 201 mg/dL 131-200 [facility] ([facility]) Cholesterol in HDL [Mass/volume] in Serum or Plasma 66 mg/dL 35-60 [facility] ([facility]) Cholesterol in LDL [Mass/volume] in Serum or Plasma by calcu lation 125 CALC 50-159 [facility] ([facility]) Triglyceride [Mass/volume] in Serum or Plasma 50 mg/dL 30-150 [facility] ([facility]) ID Date Data Source [id number] 03/24/2020 02:19:00 PM EDT [facility] ([facility]) Name Value Range Interpretation Code Description Data Herlinda rce(s) Supporting Document(s) Urea nitrogen [Mass/volume] in Serum or Plasma 10 mg/dL 7-18 [facility] ([facility]) Glucose [Mass/volume] in Serum or Plasma 89 mg/dL 74-99 [facility] ([facility]) 100-125 mg/dL PRE-DIABETES/FASTING >126 mg/dL DIABETES/FASTING Creatinine 0.5 mg/dL 0.6-1.3 [facility] ([facility]) Potassium [Moles/volume] in Serum or Plasma 4.4 meq/L 3.5-5.1 [facility] ([facility]) Sodium [Moles/volume] in Serum or Plasma 138 meq/L 136-145 [facility] ([facility]) Carbon dioxide, total [Moles/volume] in Serum or Plasma 32 meq/L 21 -32 [facility] ([facility]) Chloride [Moles/volume] in Serum or Plasma 101 meq/L 98-107 [facility] ([facility]) Calcium [Mass/volume] in Serum or Plasma 9.0 mg/dL 8.5-10.1 [facility] ([facility]) Alkaline phosphatase isoenzyme [Units/volume] in Serum or Pl asma 90 mg/dL 46-116 [facility] ([facility]) Total Bilirubin 0.5 mg/dL 0.2-1.0 [facility] ([facility]) Aspartate aminotransferase [Enzymatic activity/volume] in Serum or Plasma 14 U/L 15-37 [facility] ([facility] ) Alanine aminotransferase [Enzymatic activity/volume] in Seru m or Plasma 24 U/L 12-78 [facility] ([facility]) Albumin [Mass/volume] in Serum or Plasma 4.0 g/dL 3.4-5.0 [facility] ([facility]) Proteinase 3 Ab [Units/volume] in Serum 7.1 g/dL 6.4-8.2 [facility] ([facility]) A/G Ratio 1.29 CALC 1.00-1.90 [facility]) Glomerular filtration rate/1.73 sq M pre dicted among non-blacks [Volume Rate/Area] in Serum or Plasma by Creatinine-based formula (MDRD) Laboratory test result [facility] Glomerular filtration rate/1.73 sq M pre dicted among blacks [Volume Rate/Area] in Serum or Plasma by Creatinine-based formula (MDRD) Laboratory test result [facility] ([facility]) <content>CHRONIC KIDNEY DISEASE STAGING PER NKF</content>
<content></content>
<content>STAGE I & II GFR >= 60 NORMAL TO MILDLY DECREASED</content>
<content>STAGE III GFR 30-59 MODERATELY DECREASED</content>
<content>STAGE IV GFR 15-29 SEVERELY DECREASED</content>
<content>STAGE V GFR <15 VERY LITTLE GFR LEFT</content>
<content>ESRD GFR <15 ON BUS OR TRUCK GARAGE MECHANIC</content>
<content></content> ID Date Data Source [id number] 03/24/2020 02:19:00 PM EDT [facility] ([facility]) Name Value Range Interpretation Code Description Data Herlinda rce(s) Supporting Document(s) Erythrocytes [#/volume] in Blood by Automated count 4.71 x10*6/UL 4.2 0-6.30 [facility] ([facility]) Hemoglobin [Mass/volume] in Blood 14.6 g/dL 12.0-18.0 [facility] ([facility]) Leukocytes [#/volume] in Blood by Automated count 5.4 x10*3/UL 4.1-10 .9 [facility] ([facility]) NOTE: MANUAL DIFFERENTIAL SENT TO [facility] FOR VERIFICATION. Hematocrit [Volume Fraction] of Blood by Automated count 42.6 % 3 7.0-51.0 [facility] ([facility]) MCH 30.9 pg 26.0-32.0 [facility] MCV 90.5 fL 80.0-97.0 [facility] Erythrocyte distribution width [Ratio] by Automated count 12.3 % 11.6-13.7 [facility] ([facility]) MCHC 34.2 g/dL 31.0-38.0 [facility] MPV 7.8 FL 7.8-11.0 [facility] Platelets [#/volume] in Blood by Automated count 322 x10*3/UL 140-440 [facility] ([facility]) Lymph % 5.6 % 10.0-58.5 [facility]) Mid % 5.8 % 1.7-9.3 [facility] Neut % 88.6 % 37.0-92.0 [facility]) Lymph # 0.3 x10*3/UL 0.6-4.1 [facility] ([facility]) Mid # 0.3 x10*3/UL 0.1-0.6 [facility] ([facility]) Neut # 4.8 x10*3/UL 2.0-7.8 [facility] ([facility]) Procedure Social History Code Duration Value Status Description Data Source(s ) Alcohol intake 10/26/2020 12:00:00 AM EST Current non-d marie of alcohol (finding) completed Current non-drinker of alcohol (finding) [facility] Tobacco use and exposure 10/26/2020 12:00:00 AM EST Never used co mpleted Never used [facility] Smoking 10/26/2020 12:00:00 AM EST Never smoker completed Never s moker [facility] Alcohol intake 08/31/2020 12:00:00 AM EST Current non-d marie of alcohol (finding) completed Current non-drinker of alcohol (finding) [facility] Smoking 04/14/2020 12:00:00 AM EDT Never Smoker completed Never S deidre eCW1 ([facility]) Vital Signs ID Date Data Source UNK Name Value Range Interpretation Code Description Data Source(s) Oxygen saturation in Arterial blood by Pulse oximetry 97 % 97 % [facility]) RM Air Body height 64.50 [in_i] 64.50 [in_i] [facility] ([facility]) 5'4.50" Heart rate 82 /min 82 /min [facility] ([facility]) Diastolic blood pressure 78 mm[Hg] 78 mm[Hg] [facility] ([facility]) Systolic blood pressure 122 mm[Hg] 122 mm[Hg] [facility] ([facility]) Body mass index (BMI) [Ratio] 23.7 kg/m2 23.7 k g/m2 [facility] ([facility]) Oxygen saturation in Arterial blood by Pulse oximetry 98 % 98 % [facility] ([facility]) RM Air Body weight 140.00 [lb_av] 140.00 [lb_av] [facility] ([facility]) Body height 64.50 [in_i] 64.50 [in_i] [facility] ([facility]) 5'4.50" Heart rate 86 /min 86 /min [facility] Diastolic blood pressure 60 mm[Hg] 60 mm[Hg] [facility] ([facility]) Systolic blood pressure 112 mm[Hg] 112 mm[Hg] [facility] ([facility]) Body mass index (BMI) [Ratio] 24.0 kg/m2 24.0 k g/m2 [facility] ([facility]) Body weight 142.00 [lb_av] 142.00 [lb_av] [facility] ([facility]) Body height 64.50 [in_i] 64.50 [in_i] [facility] 5'4.50" Heart rate 86 /min 86 /min [facility] Diastolic blood pressure 78 mm[Hg] 78 mm[Hg] [facility] ([facility]) Systolic blood pressure 120 mm[Hg] 120 mm[Hg] [facility] ([facility]) Oxygen saturation in Arterial blood by Pulse oximetry 99 % 99 % [facility] ([facility]) RM Air Body height 64.50 [in_i] 64.50 [in_i] [facility] 5'4.50" Heart rate 90 /min 90 /min [facility] ([facility]) Diastolic blood pressure 60 mm[Hg] 60 mm[Hg] [facility] ([facility]) Systolic blood pressure 102 mm[Hg] 102 mm[Hg] [facility] ([facility]) Diastolic blood pressure 76 mm[Hg] 76 mm[Hg] eCW1 ([facility]) Systolic blood pressure 128 mm[Hg] 128 mm[Hg] e CW1 ([facility]) Body mass index (BMI) [Ratio] 23.32 kg/m2 23.32 kg/m2 eCW1 ([facility]) Body height [in_i] eCW1 ([facility]) Body weight 138 [lb_av] 138 [lb_av] eCW1 ([facility]) Oxygen saturation in Arterial blood by Pulse oximetry 96 % 96 % [facility] ([facility]) RM Air Body height 64.50 [in_i] 64.50 [in_i] [facility] ([facility]) 5'4.50" Heart rate 85 /min 85 /min [facility] ([facility]) Diastolic blood pressure 60 mm[Hg] 60 mm[Hg] [facility] ([facility]) Systolic blood pressure 110 mm[Hg] 110 [facility]Hg] [facility] Body mass index (BMI) [Ratio] 23.7 kg/m2 23.7 k g/m2 [facility] ([facility]) Body weight 140.50 [lb_av] 140.50 [lb_av] [facility] ([facility]) Body height 64.50 [in_i] 64.50 [in_i] [facility] ([facility]) 5'4.50" Diastolic blood pressure 60 mm[Hg] 60 mm[Hg] [facility] Systolic blood pressure 100 mm[Hg] 100 mm[facility]Hg] [facility] ID Date Data Source [id number] 10/26/2020 02:49:[address] [facility] Name Value Range Interpretation Code Description Data Source(s) WEIGHT RECORDED 140 lb 140 lb [facility] ID Date Data Source [id number] 09/01/2020 10:27:[address] [facility] Name Value Range Interpretation Code Description Data Source(s) WEIGHT RECORDED 140 lb 140 lb [facility] Patient Treatment Plan of Care Planned Activity Planned Date Details Description Data Source (s) methylPREDNISolone Sodium Succ 1000 MG I njection Solution Reconstituted (SOLU-MEDROL) 10/26/2020 12:00:00 AM [facility] gabapentin 300 MG Oral Capsule 08/20/2020 12:00:00 AM [facility] Estradiol 0.1 MG/ML Vaginal Cream 04/14/2020 12:00:00 AM EDT eCW1 ([facility])
--- NOTE | 2020-11-07 19:15 | REPVR ---
PROCEDURE INFORMATION: Exam: CT Head Without Contrast Exam date and time: 11/07/2020 7:08 PM Age: 60 years old Clinical indication: Weakness, extremity TECHNIQUE: Imaging protocol: Computed tomography of the head without contrast. Radiation optimization: All CT scans at this facility use at least one of these dose optimization techniques: automated exposure control; mA and/or kV adjustment per patient size (includes targeted exams where dose is matched to clinical indication); or iterative reconstruction. COMPARISON: CT Head without contrast 11/04/2018 3:11 PM FINDINGS: Brain: There is mild parenchymal volume loss. Stable white matter changes are demonstrated in the subcortical, centrum semiovale and periventricular white matter consistent with chronic age related small vessel ischemic changes. Cerebral ventricles: The degree of ventricular dilatation is normal for age and/or degree of atrophy present. Bones/joints: Unremarkable. No acute fracture. Paranasal sinuses: Visualized sinuses are unremarkable. No fluid levels. Mastoid air cells: Visualized mastoid air cells are well aerated. Soft tissues: Unremarkable. IMPRESSION: 1. There is mild parenchymal volume loss. Stable white matter changes are demonstrated in the subcortical, centrum semiovale and periventricular white matter consistent with chronic age related small vessel ischemic changes. 2. The degree of ventricular dilatation is normal for age and/or degree of atrophy present. Electronically signed by: Julian Simeon On 11/07/2020 19:14:48 PM
[2020-11-07] MEDS ORDERED: VITA100066 PO (19:18)
[2020-11-07] MEDS ORDERED: ADVITAB PO (19:18)
[2020-11-07] MEDS ORDERED: ACET-907 PO (19:20)
[2020-11-07] MEDS ORDERED: TIZA4TAB4 PO (19:20)
[2020-11-07 20:03] LABS: BASO % 0.3 % (0.0-1.0); EOS # 0.3 10^3/uL (0.0-0.5); EOS % 3.3 % (0.0-3.0); HEMATOCRIT 43.1 % (36.0-47.0); HEMOGLOBIN 14.5 g/dl (12.0-15.5); LYMPH # 0.7 10^3/uL (1.5-5.0); LYMPH % 7.2 % (24.0-44.0); MEAN CORPUSCULAR HEMOGLOBIN 30.7 pg (27.0-33.0); MEAN CORPUSCULAR HGB CONC 33.6 g/dl (32.0-36.5); MEAN CORPUSCULAR VOLUME 91.3 fl (80.0-96.0); MONO % 9.8 % (0.0-8.0); NEUTROPHILS # 7.9 10^3/uL (1.5-8.5); NEUTROPHILS % 78.2 % (36.0-66.0); PLATELET COUNT, AUTOMATED 315 10^3/uL (150-450); RED BLOOD COUNT 4.72 10^6/uL (4.00-5.40)
[2020-11-07 20:20] LABS: ALBUMIN 3.6 GM/DL (3.2-5.2); ALT/SGPT 31 U/L (12-78); BILIRUBIN,DIRECT 0.2 MG/DL (0.0-0.2); BILIRUBIN,TOTAL 0.6 MG/DL (0.2-1.0); BLOOD UREA NITROGEN 15 MG/DL (7-18); CALCIUM LEVEL 9.1 MG/DL (8.8-10.2); CARBON DIOXIDE LEVEL 29 MEQ/L (21-32); CHLORIDE LEVEL 102 MEQ/L (98-107); CK-MB VALUE MASS < 1.0 NG/ML (<3.6); CPK CREATINE PHOSPHOKINASE 26 U/L (26-192); CREATININE FOR GFR 0.52 MG/DL (0.55-1.30); FREE T4 1.51 NG/DL (0.76-1.46); GLOMERULAR FILTRATION RATE > 60.0 (>45); GLUCOSE, FASTING 86 MG/DL (70-100); MB/CK RELATIVE INDEX 3.85 (< OR =4); POTASSIUM SERUM 4.2 MEQ/L (3.5-5.1); SODIUM LEVEL 139 MEQ/L (136-145); TOTAL PROTEIN 6.1 GM/DL (6.4-8.2); TROPONIN I < 0.02 NG/ML (< 0.10)
[2020-11-07] MEDS ORDERED: DULoxetine 30 MG CAP (CYMBALTA) PO SCH (21:00)
[2020-11-07] MEDS: BACLOFEN 10 MG TAB PO SCH (21:00)
[2020-11-07] MEDS: GABAPENTIN 300 MG CAP PO SCH (21:00)
[2020-11-07 21:05] LABS: RSV AMPLIFICATION NEGATIVE (NEGATIVE)
[2020-11-08] MEDS ORDERED: tiZANidine 4 MG TAB PO PRN (00:45)
--- NOTE | 2020-11-08 00:48 | HPEPDOC ---
General Date of Admission Nov 08, 2020 Date of Service: Nov 08, 2020 Chief Complaint The patient is a 60-year-old female admitted with a reason for visit of General Weakness. Source: Patient History of Present Illness Mrs. Chi is a 60 year old female with MS who is here for weakness and fall. She recently had an exacerbation and was receiving high doses of steroids at [facility] from Saturday to Saturday. She had 5 doses in total. It improved her fatigue, nausea, and dizziness, but she continued to have tightness and heaviness in her legs. She felt that the tightness and heaviness is worsened. It is constant. Today around 5PM she was walking to the bathroom when she fell. She had a laceration to the left upper forehead. She denies LOC, but she could not get up. She pressed the LifeAlert button and was brought to the ED. ED spoke with Dr. Nieto of [facility]. She feels that the steroids need more time. Recommends supportive measures. No steroids tonight. They will call tomorrow morning to check in on her. Home Medications Scheduled Baclofen (Baclofen) 10 Mg Tablet, 10 MG PO TID, (Reported) Cholecalciferol (Vitamin D3) (Vitamin D3) 25 Mcg Tablet, 25 MCG PO QHS, ( Reported) Duloxetine Hcl (Duloxetine HCl) 60 Mg Capsule.dr, 60 MG PO QHS, (Reported) Gabapentin (Gabapentin) 300 Mg Capsule, 300 MG PO TID, (Reported) [place]-3 Fatty Acids/Fish Oil (Fish Oil 1,000 mg Capsule) 1,000 Mg Cap, 1,000 MG PO QHS, (Reported) Scheduled PRN Acetaminophen (Tylenol) 325 Mg Tablet, 650 MG PO Q6H PRN for PAIN, (Reported) Ibuprofen/Pseudoephedrine HCl (Advil Cold & Sinus Caplet) 1 Each Tablet, 1 TAB PO DAILY PRN for CONGESTION, (Reported) Tizanidine HCl (Tizanidine HCl) 4 Mg Tablet, 8 MG PO BID PRN for SPASMS, (Reported) Allergies Coded Allergies: Sulfa (Sulfonamide Antibiotics) (Verified Adverse Reaction, Mild, nausea, 08/26/19) Past Medical History Medical History 1. Multiple sclerosis 2. Neurogenic bladder 3. Depression 4. Seasonal allergies Surgical History 1. 3x C-sections 2. Hysterectomy 3. Molar tooth extraction Family History Father: HBP, DM Mother: HBP, DM, Uterine CA, Asthma Social History * Smoker: Denies Alcohol: Denies Drugs: denies A-FIB/CHADSVASC A-FIB History Current/History of A-Fib/PAF?: No Review of Systems Constitutional: Denies: Fever Eyes: Denies: Vision change ENT: Denies: Sore Throat Skin: Denies: Rash Pulmonary: Denies: Dyspnea, Cough Cardiovascular: Reports: Lt Headedness; Denies: Chest Pain Gastrointestinal: Denies: Nausea (Initially had nausea in the week, but now has resolved), Abdominal Pain Genitourinary: Denies: Dysuria Hematologic: Denies: Bruising Musculoskeletal: Reports: Leg Pain (Reports as tightness) Neurological: Reports: Other Symptoms (Neuropathy) Psych: Reports: Anxiety, Depression Physical Examination General Exam: Positive: Alert, Cooperative Eye Exam: Positive: EOMI; Negative: Sclera icteric ENT Exam: Positive: Atraumatic Neck Exam: Positive: Supple Chest Exam: Positive: Clear to auscultation; Negative: Rales, Rhonchi, Wheezing Heart Exam: Positive: Rate Normal, Regular Rhythm Abdomen Exam: Positive: Normal bowel sounds, Soft; Negative: Tenderness Extremity Exam: Positive: Edema Neuro Exam: Positive: Cranial Nerves 3-12 NL Psych Exam: Positive: Mental status NL, Mood NL Vital Signs Vital Signs Date Time Temp Pulse Resp B/P (MAP) Pulse Ox O2 Delivery O2 Flow Rate FiO2 11/07/20 21:00 98.8 90 14 130/68 (88) 96 Room Air Laboratory Data Labs 24H Laboratory Tests 2 11/07/20 19:19: Immature Granulocyte % (Auto) 1.2, Neutrophils (%) (Auto) 78.2H, Lymphocytes (%) (Auto) 7.2L, Monocytes (%) (Auto) 9.8H, Eosinophils (%) (Auto) 3.3H, Basophils (%) (Auto) 0.3, Neutrophils # (Auto) 7.9, Lymphocytes # (Auto) 0.7L, Monocytes # (Auto) 1.0H, Eosinophils # (Auto) 0.3, Basophils # (Auto) 0.0, Nucleated Red Blood Cells % (auto) 0.0, Activated Partial Thromboplast Time 25.8, Anion Gap 8, Glomerular Filtration Rate > 60.0, Calcium Level 9.1, Total Bilirubin 0.6, Direct Bilirubin 0.2, Aspartate Amino Transf (AST/SGOT) 9, Alanine Aminotra nsferase (ALT/SGPT) 31, Alkaline Phosphatase 88, Total Creatine Kinase 26, Creatine Kinase MB < 1.0, Creatine Kinase MB Relative Index 3.85, Troponin I < 0.02, Total Protein 6.1L, Albumin 3.6, Albumin/Globulin Ratio 1.4, Thyroid Stimulating Hormone (TSH) 2.810, Free Thyroxine 1.51H, Coronavirus (COVID- 19)(PCR) NEGATIVE, Influenza Type A (RT-PCR) NEGATIVE, Influenza Type B (RT-PCR) NEGATIVE, Respiratory Syncytial Virus (PCR) NEGATIVE 11/07/20 21:33: Urine Color STRAW, Urine Appearance CLEAR, Urine pH 7.0, Urine Specific [place] 1.004, Urine Protein NEGATIVE, Urine Glucose (UA) NEGATIVE, Urine Ketones NEGATIVE, Urine Blood NEGATIVE, Urine Nitrite NEGATIVE, Urine Bilirubin NEGATIVE, Urine Urobilinogen 0.2, Urine Leukocyte Esterase NEGATIVE, Urine WBC (Auto) 0, Urine RBC (Auto) 0, Urine Hyaline Casts (Auto) 0, Urine Bacteria (Auto) NEGATIVE, Urine Squamous Epithelial Cells 0, Urine Sperm (Auto) CBC/BMP Laboratory Tests 11/07/20 19:19 Assessment/Plan Mrs. Chi is a 60 year old female with MS who is here for weakness and fall. ED contacted [facility] [place] neurology. Just had steroid course. They felt she needed more time for the steroids to work. Did not recommend any more steroids at this time. Recommended admission and supportive care. They will check-in in the morning. Patient's main concern is the tightness in the legs and the weakness Plan / VTE VTE Prophylaxis Ordered?: Yes Plan Plan 1. MS exacerbation -Received high dose steroids form Saturday to Saturday and [facility] [place] [facility] [place] neurology, Dr. Nieto, recommended supportive care and admission. Dr. Nieto will check-in in the morning and make further recommendations -Physical therapy for the weakness -Continue Tizanidine, baclofen, and gabapentin 2. Weakness in the legs -Will order PT -US leg negative for DVT (Unequal swelling in legs) 3. Anxiety/Depression -Continue Duloxetine 4. DVT ppx -Lovenox LEIGHA PANG DO Nov 08, 2020 00:48
--- OUTSIDE RECORDS SUMMARY | 2020-11-08 00:56 | CCD ---
Author Author [facility] Organization [facility] Address Unknown Phone Unavailable Care Team Providers Care Patrol Captain Name Role Phone Brittny, Loly DO Unavailable Unavailable Brittny, Loly DO Unavailable Unavailable Brittny, Loly DO Unavailable Unavailable Brittny, Loly DO Unavailable Unavailable Brittny, Loly DO Unavailable Unavailable Brittny, Loly DO Unavailable Unavailable Brittny, Loly DO Unavailable Unavailable Brittny, Loly DO Unavailable Unavailable Brittny, Loly DO Unavailable Unavailable Brittny, Loly DO Unavailable Unavailable Brtitny, Loly DO Unavailable Unavailable Brittny, Loly DO [...] Unavailable Unavailable Brittny, Loly DO Unavailable Unavailable Birttny, Loly DO Unavailable Unavailable Brittny, Loly DO Unavailable Unavailable Brittny, Loly DO Unavailable Unavailable Brittny, Olly DO Unavailable Unavailable Brittny, Loly DO Unavailable [...] Foster Unavailable Raghu MD, A Foster Unavailable Dupage, Luz PRESCHOOL SPECIAL EDUCATION TEACHER Unavailable Unavailable Jeff, Luz PRESCHOOL SPECIAL EDUCATION TEACHER Unavailable Unavailable Jeff, Luz PRESCHOOL SPECIAL EDUCATION TEACHER Unavailable Unavailable Dupage, Luz PRESCHOOL SPECIAL EDUCATION TEACHER Unavailable Unavailable Dupage, Luz PRESCHOOL SPECIAL EDUCATION TEACHER Unavailable Unavailable Dupage, Luz PRESCHOOL SPECIAL EDUCATION TEACHER Unavailable Unavailable Dupage, Luz PRESCHOOL SPECIAL EDUCATION TEACHER Unavailable Unavailable Dupage, Luz PRESCHOOL SPECIAL EDUCATION TEACHER Unavailable Unavailable Dupage, Luz PRESCHOOL SPECIAL EDUCATION TEACHER Unavailable Unavailable Dupage, Luz PRESCHOOL SPECIAL EDUCATION TEACHER Unavailable Unavailable Dupage, Luz PRESCHOOL SPECIAL EDUCATION TEACHER Unavailable Unavailable Dupage, Luz PRESCHOOL SPECIAL EDUCATION TEACHER Unavailable Unavailable Dupage, Luz PRESCHOOL SPECIAL EDUCATION TEACHER Unavailable Unavailable Dupage, Luz PRESCHOOL SPECIAL EDUCATION TEACHER Unavailable Unavailable Dupage, Luz PRESCHOOL SPECIAL EDUCATION TEACHER Unavailable Unavailable Jeff, Luz PRESCHOOL SPECIAL EDUCATION TEACHER Unavailable Unavailable Jeff, Luz PRESCHOOL SPECIAL EDUCATION TEACHER Unavailable Unavailable Dupage, Luz PRESCHOOL SPECIAL EDUCATION TEACHER Unavailable Unavailable Dupage, Luz PRESCHOOL SPECIAL EDUCATION TEACHER Unavailable Unavailable Dupage, Luz PRESCHOOL SPECIAL EDUCATION TEACHER Unavailable Unavailable Jeff, Luz PRESCHOOL SPECIAL EDUCATION TEACHER Unavailable Unavailable Dupage, Luz PRESCHOOL SPECIAL EDUCATION TEACHER Unavailable Unavailable Dupage, Luz PRESCHOOL SPECIAL EDUCATION TEACHER Unavailable Unavailable Jeff, Luz PRESCHOOL SPECIAL EDUCATION TEACHER Unavailable Unavailable Dupage, Luz PRESCHOOL SPECIAL EDUCATION TEACHER Unavailable Unavailable Dupage, Luz PRESCHOOL SPECIAL EDUCATION TEACHER Unavailable Unavailable Dupage, Luz PRESCHOOL SPECIAL EDUCATION TEACHER Unavailable Unavailable Dupage, Luz PRESCHOOL SPECIAL EDUCATION TEACHER Unavailable Unavailable Jeff, Luz PRESCHOOL SPECIAL EDUCATION TEACHER Unavailable Unavailable Dupage, Luz PRESCHOOL SPECIAL EDUCATION TEACHER Unavailable Unavailable Dupage, Luz PRESCHOOL SPECIAL EDUCATION TEACHER Unavailable Unavailable Jeff, Luz PRESCHOOL SPECIAL EDUCATION TEACHER Unavailable Unavailable Debbi DELATORRE MD Unavailable Unavailable [...] is protected by Article 27-F of the [facility] Public Health law. If you continue you may have access to information: Regarding HIV / AIDS; Provided by facilities licensed or operated by the [facility] Office of Mental Health; or Provided by the [facility] Office for People With Developmental Disabilities. If such information is present, then the following [facility] mandated warning applies: This information has been [...] law may result in a fine or mcc sentence or both. A general authorization for the release of medical or other information is NOT sufficient authorization for further disc losure. Family History Family Member Name Family Member Gender Family Member Status Date o f Status Description Data Source(s) Unknown Male Problem [facility] ([facility]) Unknown Female Problem [facility] ([facility] Unknown Female Problem [facility] ([facility] Unknown Female Problem [facility] ([facility] Encounters Encounter Providers Location Date Indications Data Source(s ) Outpatient Attender: Foster Krishnamurthy MD 01/26/2021 12:00:00 A M [facility] Outpatient Attender: MANDY DELATORRE MD 12/27/2020 12:00:00 AM [facility] Outpatient Attender: Foster Krishnamurthy MD 12/12/2020 12:00:00 A M [facility] Outpatient 11/07/2020 10:52:00 PM EST neurology consult [facility] neurology consult Outpatient Attender: Luz LANGE [id number] 12:00:00 AM EST - 10/26/2020 02:48:40 PM EST Multiple sclerosis [facility] Multiple sclerosis Outpatient Attender: Foster Krishnamurthy MD 10/26/2020 12:00:00 A M [facility] Outpatient Attender: Foster Krishnamurthy MDReferrer: JOSUE PAIGE MD [id number] 08/31/2020 12:00:00 AM EST - 08/31/2020 10:27:15 AM EST Multiple sclerosis [facility] Multiple sclerosis Outpatient Attender: JOSUE PAIGE MD Main office - [facility] n 08/25/2020 03:15:00 PM EST [facility] ([facility]) Outpatient Attender: Loly Hanks 08/15 12:45:00 PM EST [facility] ([facility] ) Outpatient Attender: JOSUE PAIGE MD Main office - [facility] nimisha 07/19/2020 03:45:00 PM EDT [facility] ([facility]) Outpatient Attender: Loly Hanks 07/15 02:15:00 PM EDT [facility] ([facility] ) Outpatient Attender: Loly Hanks 06/10 03:00:00 PM EDT [facility] ([facility] ) Outpatient Attender: JOSUE PAIGE MD Main office - 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 nimisha 02/26/2020 12:45:00 PM EDT [facility] ([facility]) Outpatient Attender: Loly Hanks 01/21 11:00:00 AM EDT MED[facility] ([facility] ) Outpatient Attender: JOSUE PAIGE MD Main office - [facility] 01/14/2020 03:00:00 PM EDT MED[facility] ([facility] ) Outpatient Attender: Loly Hanks 10/15 12:00:00 PM EST [facility] ([facility] ) Medications Medication Brand Name Start Date Product Form Dose Route Admi nistrative Instructions Pharmacy Instructions Status Indications Reaction Description Data Source(s) methylPREDNISolone Sodium Succ 1000 MG I njection Solution Reconstituted (SOLU-MEDROL) [id number] 10/26/2020 12:00:00 AM EST active 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 [facility] Secondary progressive multiple sclerosis gabapentin 300 MG Oral Capsule Gabapentin 300 MG Oral Capsule (NEURONTIN) Gabapentin 300 MG Oral Capsule (NEURONTIN) 08/20/2020 12:00:00 AM EST 300 mg Oral active Take 300 mg by mouth Three times daily [facility] duloxetine 30 MG Delayed Release Oral Capsule Duloxetine HCL 08/15/2020 12:00:00 AM EST ORAL active [facility] ([facility]) teriflunomide 7 MG Oral Tablet [Aubagio] Aubagio 08/09/2020 12:00: 00 AM EST ORAL active [facility] ([facility]) NITROFURANTOIN, MACROCRYSTALS 25 MG / Ni trofurantoin, Monohydrate 75 MG Oral Capsule Nitrofurantoin Monohyd Macro 08/08/2020 12:00:00 AM EST ORAL active [facility] ([facility]) Primidone 50 MG Oral Tablet Primidone 07/19/2020 12:00:00 AM EDT ORAL active MED[facility] ([facility] ) duloxetine 60 MG Delayed Release Oral Capsule Duloxetine HCL 07/15/2020 12:00:00 AM EDT active [facility] ([facility]) Amlodipine 5 MG Oral Tablet Amlodipine Besylate 06/10/2020 12:00:00 A M EDT ORAL active [facility] ([facility]) tizanidine 4 MG Oral Tablet Tizanidine HCL 05/27/2020 12:00:00 AM EDT ORAL active [facility] ([facility]) gabapentin 300 MG Oral Capsule Gabapentin 05/03/2020 12:00:00 AM EDT ORAL active [facility] ([facility], ) ropinirole 1 MG Oral Tablet Ropinirole HCL 04/29/2020 12:00:00 AM EDT ORAL active [facility] ([facility]) Diclofenac Sodium 0.01 MG/MG Topical Gel Diclofenac Sodium 04/28/2020 12:00:00 AM EDT active [facility] ([facility] Estradiol 0.1 MG/ML Vaginal Cream Estradiol 0.1 MG/GM Estrad iol 0.1 MG/GM 04/14/2020 12:00:00 AM EDT active Estradiol 0.1 MG/GM eCW1 ([facility]) Amlodipine 2.5 MG Oral Tablet Amlodipine Besylate 03/24/2020 12:00: 00 AM EDT ORAL completed [facility] ([facility]) Diclofenac Sodium 0.03 MG/MG Topical Gel Diclofenac Sodium 03/23/2020 12:00:00 AM EDT completed [facility] ([facility] Whisper Ject Autoinjector 03/21/2020 12:00:00 AM EDT active MED[facility] ([facility], ) Glatopa Glatopa 02/26/2020 12:00:00 AM EDT active MED[facility] ([facility], ) Glatopa Glatopa 02/26/2020 12:00:00 AM EDT SUBCUTANEOUS active MED[facility] ([facility], ) duloxetine 30 MG Delayed Release Oral Capsule Duloxetine HCL 01/15/2020 12:00:00 AM EDT ORAL completed [facility] ([facility]) NITROFURANTOIN, MACROCRYSTALS 25 MG / Ni trofurantoin, Monohydrate 75 MG Oral Capsule [Macrobid] Macrobid 09/10/2019 12:00:00 AM EST ORAL active [facility] ([facility]) Primidone 50 MG Oral Tablet Primidone 09/03/2019 12:00:00 AM EST ORAL completed [facility] ([facility] ) gabapentin 300 MG Oral Capsule Gabapentin 09/03/2019 12:00:00 AM EST completed [facility] ([facility], ) Insurance Providers Payer name Policy type / Coverage type Policy ID Covered democrat ID Covered democrat's relationship to richard Policy Richard Plan Information A[employer] HE[employer] CARE OPTIONS [id number] SP [id number] MEDICARE [id number] SP [id number] AARP U [id number] Self [id number] MEDICARE A [id number] Self [id number] AAR HE[employer] CARE OPTIONS [id number] SP [id number] [facility] [id number] Spouse [id number] MEDICARE A [id number] Self [id number] A [facility] [id number] SP [id number] [facility] HE[facility] CARE [id number] SP [id number] [facility] Health Maintenance Organization (HMO) [id number] Self [id number] [facility] Trad/[place] Medigap Part B [id number] Family Depe ndent [id number] [facility] [place] Medigap Part B [id number] Family Depe ndent [id number] [facility] [place] Medigap Part B [id number] Family Depe ndent [id number] Medicare Natl Govt Servic Medicare Primary [id number] Self [id number] [facility] Healthcare Commercial [id number] Family Dependent [id number] [facility] Tr[place] Medigap Part B [id number] Medicare Medicare Primary [id number] Self [id number] [facility] Health Plans Commercial [id number] Family Dependent [id number] [facility] HEALTH CARE [id number] SP [id number] ANSI-Not a Secondary Insurance [id number] ANSI-Medicare Part B [id number] ANSI-Medicare Part B [id number] ANSI-Not a Secondary Insurance [id number] [facility] Health Maintenance Organization ([facility]) [id number] Self [id number] [place] Medigap Part B [id number] Family Depe ndent [id number] [facility] Tr[place] Medigap Part B [id number] Family Depe ndent [id number] [facility] Tr[place] Medigap Part B [id number] Family Depe ndent [id number] Medicare Natl Govt Servic Medicare Primary [id number] Self [id number] Medicare Medicare Primary [id number] Self [id number] [facility] HEALTH CARE [id number] SP [id number] [facility] Maintenance Organization (O) [id number] Self [id number] [facility] Trad/[place] Medigap Part B [id number] Family Depe ndent [id number] [facility] [place] Medigap Part B [id number] Family Depe ndent [id number] [facility] Tr[place] Medigap Part B [id number] Family Depe ndent [id number] Medicare Natl Govt Servic Medicare Primary [id number] Self [id number] Medicare Medicare Primary [id number] Self [id number] [facility] HEALTH CARE O [id number] S [id number] MEDICARE C [id number] S [id number] [facility] Health Maintenance Organization ([facility]) [id number] Self [id number] [facility] Tr[place] Medigap Part B [id number] Family Depe ndent [id number] [facility] Tr[place] Medigap Part B [id number] Family Depe ndent [id number] [facility] Tr[place] Medigap Part B [id number] Family Depe ndent [id number] Medicare Natl Govt Servic Medicare Primary [id number] Self [id number] ANSI-Medicare Part B [id number] ANSI-Not a Secondary Insurance [id number] Medicare Medicare Primary [id number] Self [id number] [facility] [id number] [facility] [id number] MEDICARE [id number] SP [id number] A [employer] [facility] [place] [facility] Health Maintenance Organization (HMO) [id number] Self [id number] [place] Medigap Part B [id number] Family Depe ndent [id number] [place] Medigap Part B [id number] Family Depe ndent [id number] BS [place] Medigap Part B [id number] Family Depe ndent [id number] Medicare Natl Govt Servic Medicare Primary [id number] Self [id number] [facility] Health Plans Commercial [id number] Family Dependent [id number] Medicare Medicare Primary [id number] Self [id number] [facility] (HMO) [id number] Self [id number] BS [place] Commercial [id number] Family Dependen t [id number] [place] Commercial [id number] Family Dependen t [id number] [place] Commercial [id number] Family Dependen t [id number] Medicare Natl Govt Servic Medicare Primary [id number] Self [id number] [employer] [place] [facility] Health Maintenance Organization (HMO) [id number] Self [id number] BS [place] Commercial [id number] Family Dependen t [id number] [place] Commercial [id number] Family Dependen t [id number] BS [place] Tr[place] Commercial [id number] Family Dependen t [id number] Medicare Natl Govt Servic Medicare Primary [id number] Self [id number] Blue Cross Blue Shield P [id number] SELF [id number] Medicare C [id number] SELF [id number] A [place] Medigap Part B [id number] Family Depend ent [id number] Medicare Medicare Primary [id number] Self 05 [id number] [employer] HE[employer] CARE O [id number] S 80 [id number] MEDICARE C [id number] S [id number] A BS [place] Medigap Part B [id number] Family Depend ent [id number] Medicare Medicare Primary [id number] Self 05 [id number] [place] PPO 302/307 [id number] HU2 [id number] [employer] Health Maintenance Organization (HMO) [id number] Self [id number] BS [place] Tr[place] Commercial [id number] Family Dependen t [id number] BS [place] Tr[place] Commercial [id number] Family Dependen t [id number] BS [place] Tr[place] Commercial [id number] Family Dependen t [id number] Medicare Natl Govt Servic Medicare Primary [id number] Self [id number] BS [place] Medigap Part B [id number] Family Depend ent [id number] Medicare Medicare Primary [id number] Self 05 [id number] [place] PPO 302/307 [id number] HU2 [id number] MEDICARE [id number] SP [id number] A BS [place] Medigap Part B [id number] Family Depend ent [id number] Medicare Medicare Primary [id number] Self 05 [id number] BS [place] Medigap Part B [id number] Family Depend ent [id number] Medicare Medicare Primary [id number] Self 05 [id number] EXCELLUS BCBS B [id number] S [id number] BS [place] Medigap Part B [id number] Family Depend ent [id number] Medicare Medicare Primary [id number] Self 05 [id number] BS [place] Medigap Part B [id number] Family Depend ent [id number] Medicare Medicare Primary [id number] Self 05 [id number] [employer] Health Maintenance Organization (HMO) [id number] Self [id number] BS [place] Trad/[place] Commercial [id number] Family Dependen t [id number] BS [place] Trad/[place] Commercial [id number] Family Dependen t [id number] BS [place] Trad/[place] Commercial [id number] Family Dependen t [id number] Medicare Natl Govt Servic Medicare Primary [id number] Self [id number] BS [place] Medigap Part B [id number] Family Depend ent [id number] Medicare Medicare Primary [id number] Self 05 [id number] BS [place] Trad/[place] Commercial Family Dependent [employer] [place] o Health Maintenance Organization (HMO) Usbpi Self Usbpi [place] Trad/[place] Commercial [id number] Family Dependent 804 [place] Trad/[place] Commercial [id number] BS [place] Trad/[place] Commercial 802 Family Dependent 802 Medicare Natl Govt Servic Medicare Primary Self BC[place] PPO 302/307 [id number] HU2 [id number] BS [place] Medigap Part B Family Dependent Medicare Medicare Primary Self EXCELLUS C [id number] Self [id number] EXCELLUS H [id number] Self [id number] MEDICARE A [id number] Self [id number] A BCBS [place] PPO 302/307 [id number] HU2 [id number] BCBS [place] PPO 302/307 [id number] HU2 [id number] Problems, Conditions, and Diagnoses Code Display Name Description Problem Type Effective Dates Data Source(s) 284602299 Peripheral vascular disease Peripheral vascular diseas e Problem 10/23/2019 12:00:00 AM EST [facility] ([facility] neurology consult neurology consult Diagnosis 11/07/2020 10:52:00 PM [facility] G35 Multiple sclerosis Multiple sclerosis Diagnosis 0 05:47:48 PM [facility] G82.20 Paraplegia, unspecified Paraplegia, unspecified Diagno sis 08/31/2020 09:30:03 AM [facility] R25.1 Tremor, unspecified Tremor, unspecified Diagnosis 1 11/01/2019 08:59:49 AM [facility] R53.1 Weakness Weakness Diagnosis 08/31/2020 08:59:49 AM [facility] E55.9 Vitamin D deficiency, unspecified Vitamin D defi ciency, unspecified Diagnosis 08/26/2020 04:46:55 PM [facility] Surgeries/Procedures Procedure Description Date Indications Data Source(s) DEBRIDEMENT NAIL ANY METHOD 08/24/2020 12:00:00 AM EST [facility] ([facility] DEBRIDEMENT NAIL ANY METHOD 03/23/2020 12:00:00 AM EDT [facility] ([facility] MRI Brain W/O Contrast, Followed By Contrast 0 12:00:00 AM EDT [facility] ([facility] MRI Brain W/O Contrast, Followed By Contrast 0 12:00:00 AM EDT MED[facility] ([facility] MRI Spine Cervical W/O Contrast, Followed By Contrast 03/07/2020 12:00:00 AM EDT [facility] ([facility] MRI Spine Cervical W/O Contrast, Followed By Contrast 03/07/2020 12:00:00 AM EDT [facility] ([facility] MRI Spine Thoracic W/O Contrast, Followed By Contrast 03/07/2020 12:00:00 AM EDT [facility] ([facility] MRI Spine Thoracic W/O Contrast, Followed By Contrast 03/07/2020 12:00:00 AM EDT [facility] ([facility] DEBRIDEMENT NAIL ANY METHOD 10/16/2019 12:00:00 AM EST [facility] ([facility] MRI Brain W/O Contrast, Followed By Contrast 0 12:00:00 AM EST [facility] ([facility]) MRI Brain W/O Contrast, Followed By Contrast 0 12:00:00 AM EST [facility] ([facility] MRI Spine Cervical W/O Contrast, Followed By Contrast 10/05/2019 12:00:00 AM EST [facility] ([facility] MRI Spine Cervical W/O Contrast, Followed By Contrast 10/05/2019 12:00:00 AM EST [facility] ([facility] MRI Spine Thoracic W/O Contrast, Followed By Contrast 10/05/2019 12:00:00 AM EST [facility] ([facility] MRI Spine Thoracic W/O Contrast, Followed By Contrast 10/05/2019 12:00:00 AM EST [facility] ([facility] Results ID Date Data Source [id number] 10/26/2020 02:27:04 PM EST [facility] Name Value Range Interpretation Code Description Data Herlinda rce(s) Supporting Document(s) Progress Note [facility] CBMAVs4yEqVVCtTy26/JGSmiMRJzg5MnAUrfTXb0QDagHICrQ2IrCBB7kC6yMQH8FWqAQkIyRrXsFjKy 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+UeA6pomLBGtXGor1XeX7qFjRBCpscYQmcmeH3BdjJkkSibCEFN7KjH+OV+4DXgLeoGBIHRgFe+Xo [file] AgICAgICAgICAgICAgICAgICAgICAgICAgICAgICAgICAgICAgICAgICAgICAgICAgICAgICAgICAgIC AgICAgICAgICAgICAgICAgICAgICAgICAgICAgDQog ICAgICAgICAgICAgICAgICAgICAgICAgICAgICAgICAgICAgICAgICAgICAgICAgICAgICAgICAgICAg ICAgICAgICAgICAgICAgICAgICAgICAgICAgICAgICAgICAgICAgDQogICAgICAgICAgICAgICAgICAg ICAgICAgICAgICAgICAgICAgICAgICAgICAgICAgIC AgICAgICAgICAgICAgICAgICAgICAgICAgICAgICAgICAgICAgICAgICAgICAgICAgDQogICAgICAgIC AgICAgICAgICAgICAgICAgICAgICAgICAgICAgICAgICAgICAgICAgICAgICAgICAgICAgICAgICAgIC AgICAgICAgICAgICAgICAgICAgICAgICAgICAgICAg DQogICAgICAgICAgICAgICAgICAgICAgICAgICAgICAgICAgICAgICAgICAgICAgICAgICAgICAgICAg ICAgICAgICAgICAgICAgICAgICAgICAgICAgICAgICAgICAgICAgICAgDQogICAgICAgICAgICAgICAg ICAgICAgICAgICAgICAgICAgICAgICAgICAgICAgIC AgICAgICAgICAgICAgICAgICAgICAgICAgICAgICAgICAgICAgICAgICAgICAgICAgICAgDQogICAgIC AgICAgICAgICAgICAgICAgICAgICAgICAgICAgICAgICAgICAgICAgICAgICAgICAgICAgICAgICAgIC AgICAgICAgICAgICAgICAgICAgICAgICAgICAgICAg ICAgDQogICAgICAgICAgICAgICAgICAgICAgICAgICAgICAgICAgICAgICAgICAgICAgICAgICAgICAg ICAgICAgICAgICAgICAgICAgICAgICAgICAgICAgICAgICAgICAgICAgICAgDQogICAgICAgICAgICAg ICAgICAgICAgICAgICAgICAgICAgICAgICAgICAgIC AgICAgICAgICAgICAgICAgICAgICAgICAgICAgICAgICAgICAgICAgICAgICAgICAgICAgICAgDQogIC AgICAgICAgICAgICAgICAgICAgICAgICAgICAgICAgICAgICAgICAgICAgICAgICAgICAgICAgICAgIC AgICAgICAgICAgICAgICAgICAgICAgICAgICAgICAg IIUnFMMvYKt9B4jmTUHdMYCtVR1fGKx8Bw8+YNwSXzHuPDY9fgIowM0PBZ2fg3ZsGIrnIBMvu0WwJFy7 CH8QILNkBPolYN7SEMnybt3VHHIoZGVloBJBj3kxQeElKHJ8JZAfHvcsFF9CMRXkL0yitxNpOBEpYIJZ IDcgMCBSIDkgMCBSIDExIDAgUiAxMyAwIFIgMTUgMC NCRD2JRmAvP8VduT10PMCHDa0+TPlpniTjXgbZGpJmZGCox0KxJFr5GW0UYWUwEfanf7ZkDoHxBQXHNI nmHU6KRTB6DVBjQQQkQr8RPFDsR541gvKdQI4BRy7CZbKeVW7qnw1JBcQkGJDdUqlIVst8EJzzBW7PkO MfRYqFiy0rgxLxkhLOr6AhzqValCHRTHUheiYhIOns HgJjSs7lJTlhPmGaHCSpPq4jIvDjNaAfYUO5JLBjRT7nSHhuKV8HFPX7RUcoZHCtTZOaZ1uCVmVdFAXm UyEnlKzpVZ6HIpCwA7VcneLnyYRmXtIfYBPIJz4+POhnyfQxJhzSVyT5OCVii1BcZXp6QX6QEZVmMUqx BT2QLOQdwI4xZUnzYF9YKfUaANWqZDMYGnGuV37adR GzEGh4K8DtJmJrKMVaDabkURPjBHbgMzMdMVUrOmHpIGcjUS3+ID4+ELqdTS3PAZvqlbYwSLPqQo1LCU ZeJRYyIZ8rTMXmHORvO1U0hSysMQQJSgLzN6ubbsheWH8cMIEyF004sEysfhOoAUIeLYJjXw6VSINjPX V4IFPmwLWmKkIpNUYDNIhvVZ5MfLEvDMH4cI4iFNnt VNHvGCCnI1aGVjXcsGmpWD08mLlcehDfaTLhABr+Wu0EQA3ql4CvWPf0dmNcFHpqNFL7TKzmERPhLBWh CVZcGNZ6IOO6UTAZRbSnTBAzCJCeJXusPWOwHSMgfu4JMFPiGUHkQmT0KcVcDCDpRYDjSMtjYZZjMOH4 BhX4CVQoBKDsXQ9LBwMaJYGnQXGkRTmzAMZyGLDbms 1GKRXxHRFdNiBlCzLzJPFlSJPhIZjtUCPbAMPzAUXdHSMkESYhNU5NZwPxIVAqJKg0LVXlVVUjPYAzto 4PYUSgLTOrXoo9QOGdKRFpVOQpDFeoVBAgDMLaSaS9QJZkONUsZU6RQaOfDHGzVAE4JvJaANUySFWdse 3DCJJwPJInBypoZuLgALOsLBNhOOczOGEcBVH3WZSa KXHdRDRbZB6TVeYeGYPpIDx2YkRvFFYbXORulh3CUORqIJRkMCY2TKZqPSDeMBXgDWamXSHlBKR4DMB4 DJCvEQNdTY6RTtDnZAXtMzUyVKFiSVQtEFFyfj7MMVQlFYHyTAG0VaBnOHMsQXKuORwlKOPyACIsDtU4 KOCuMWGfND4BOjLuHQFaYtK1SXLeIVVpMFFgwj5VWT GxTCBaWjPmIJUxQPWeMGLaFLjhXYFuNYRqNdZoVBRuMORjFS0NClFtWLUlQhO7TIQgFLTcLOFvfv6GWP JjUJWuHJCoVTVjXVJqFJCrHJcbRKIxLGH1NCM9IZCfGATbEN6OCyDeQIVaUxY5CzItOMOpYQCxac9VGN NtPFWxYHYyFBFbRSUoYYIgLDpiRCGxGXZ6XWHpZPWk RIGeYD9ZNpVdJQRdGhGeJOBrAJEhOTEina9XTYBuERDxJaP7BqFmRKVoZTOhMOvxXOKoWZI3WDriXOSn NSJiXM4CDtSiGREaHwD5ZVftPWEzYHThrg1CNLKpDQNsZBF3ATBwWZJtFUTtQPbxOEObKPR6LPWmWSVe KVYtXC0ZUuBbSXEuEya7CHNdSFNcYAZhqu2CiYTyjL szlv4FHWtCSc1AnDuoWLI2TYagOx1arERuQPEyAXAXTs5GfhGiWHQdUUQBFKmqSJPtSTFfOzF9INGtNU SqYnIzNOPpXwD2Gen0ZSY5BlGkQ3H6IoV2U4NxBOn4BXH4RdF6LCX1ReO5PjpiVolpWWGuKbDoCzv+IF 0gDQo+Uo5Cl5NsgoO4snWrFDdeTMgoVV4GZTJIH1PDSv== ID Date Data Source [id number] 09/13/2020 03:07:00 PM EST [facility] ([facility]) Name Value Range Interpretation Code Description Data Herlinda rce(s) Supporting Document(s) White Blood Count 6.9 10 4.0-10.0 [facility] ([facility]) Hematocrit 42.7 % 36.0-47.0 [facility] ([facility]) Red Blood Count 4.64 10 4.00-5.40 [facility] ([facility]) Hemoglobin 14.2 g/dL 12.0-15.5 [facility] Mean Corpuscular HGB Conc 33.3 g/dL 32.0-36.5 [facility] NT ([facility]) Mean Corpuscular Volume 92.0 fl 80.0-96.0 [facility] ([facility]) Red Cell Distribution Width 11.7 % 11.5-14.5 [facility] ([facility]) Mean Corpuscular Hemoglobin 30.6 pg 27.0-33.0 [facility] ([facility]) Platelet Count, Automated 373 10 150-450 [facility] NT ([facility]) Lymph % 9.8 % 24.0-44.0 [facility] [facility]) Neutrophils % 79.7 % 36.0-66.0 [facility] ([facility]) Baso % 0.6 % 0.0-1.0 [facility] [facility] [place] % 7.9 % 0.0-5.0 [facility] [facility] Eos % 1.7 % 0.0-3.0 [facility] [facility] Immature Granulocyte % 0.3 % 0-3.0 [facility] ([facility]) Lymph # 0.7 10 1.5-5.0 [facility] [facility] Neutrophils # 5.5 10 1.5-8.5 [facility] ([facility]) Nucleated Red Blood Cell % 0.0 % 0-0 [facility] E[facility] ([facility]) Baso # 0.0 10 0.0-0.2 [facility] [facility] Eos # 0.1 10 0.0-0.5 [facility] [facility] [place] # 0.5 10 0.0-0.8 [facility] [facility] ID Date Data Source [id number] 09/13/2020 03:07:00 PM EST [facility] ([facility]) Name Value Range Interpretation Code Description Data Herlinda rce(s) Supporting Document(s) Blood Urea Nitrogen 14 mg/dL 7-18 [facility] ([facility]) Glucose, Fasting 96 mg/dL 70-100 [facility] ([facility]) Creatinine For GFR 0.61 mg/dL 0.55-1.30 [facility] ([facility]) Sodium Level 138 meq/L 136-145 [facility] ([facility]) Glomerular Filtration Rate Laboratory test result [facility] ([facility]) <content>Units are mL/min/1.73 m2</content>
<content></content>
<content>Chronic Kidney Disease Staging per NKF:</content>
<content></content>
<content>Stage I & II GFR >=60 Normal to Mildly Decreased</content>
<content>Stage III GFR 30- 59 Moderately Decreased</content>
<content>Stage IV GFR 15-29 Severely Decreased</content>
<content>Stage V GFR <15 Very Little GFR Left</content>
<content>ESRD GFR <15 on MANUFACTURED BUILDINGS SUPERVISOR</content>
<content></content> Carbon Dioxide Level 29 meq/L 21-32 [facility] ([facility]) Chloride Level 105 meq/L 98-107 [facility] ([facility]) Anion Gap 4 meq/L 8-16 [facility] [facility]) Potassium Serum 4.4 meq/L 3.5-5.1 [facility] ([facility]) Ast/Sgot 12 U/L 7-37 [facility] ([place] [facility]) Alt/SGPT 23 U/L 12-78 [facility] ([facility]) Calcium Level 9.7 mg/dL 8.8-10.2 [facility] ([facility]) Bilirubin,Total 0.5 mg/dL 0.2-1.0 [facility] ([facility]) Alkaline Phosphatase 125 U/L 45-117 [facility] Total Protein 7.2 GM/DL 6.4-8.2 [facility] ([facility]) Albumin 4.2 GM/DL 3.2-5.2 [facility] ([facility]) Albumin/Globulin Ratio 1.4 1.2-2.2 [facility] ([facility]) ID Date Data Source [id number] 09/13/2020 03:07:00 PM EST [facility] ([facility]) Name Value Range Interpretation Code Description Data Herlinda rce(s) Supporting Document(s) Bilirubin,Direct 0.2 mg/dL 0.0-0.2 [facility] ([facility]) ID Date Data Source [id number] 09/13/2020 03:07:00 PM EST [facility] ([facility]) Name Value Range Interpretation Code Description Data Herlinda rce(s) Supporting Document(s) IgA [Mass/volume] in Serum or Plasma 211.0 mg/dL 70-400 [facility] ([facility]) ID Date Data Source [id number] 09/13/2020 03:07:00 PM EST [facility] ([facility]) Name Value Range Interpretation Code Description Data Herlinda rce(s) Supporting Document(s) Hepatitis B Surface Antigen Laboratory test result [facility] ([facility]) Hepatitis C Virus Brandi Index 0.1 INDEX [facility] ([facility]) Negative Not infected with HCV, unless recent infection is suspected or other evidence exists to indicate HCV infection. Hepatitis A Antibody Igm Laboratory test result [facility] ([facility]) Hepatitis B Core Antibody Igm Laboratory test result [facility] ([facility]) ID Date Data Source [id number] 09/13/2020 03:07:00 PM EST [facility] ([facility]) Name Value Range Interpretation Code Description Data Herlinda rce(s) Supporting Document(s) Folate [Mass/volume] in Red Blood Cells 10.3 ng/mL [facility] ([facility]) FOLATE NORMAL RANGE NORMAL GREATER THAN 5.4 NG/ML INDETERMINATE 3.4-5.4 NG/ML DEFICIENT LESS THAN 3.4 NG/ML Cobalamin (Vitamin B12) [Mass/volume] in Serum or Plasma 548 pg/mL 2 47-911 [facility] ([facility]) VITAMIN B12 NORMAL RANGE NORMAL 247 - 911 PG/ML INDETERMINATE 211 - 246 PG/ML DEFICIENT LESS THAN 211 PG/ML Hepatitis B virus surface Ab [Presence] in Serum by Im mei Laboratory test result [facility] ([facility] ) Miscellaneous Test Lab Laboratory test result [facility] ([facility]) See Separate Report Testing performed at reference lab . Report copy to follow on a separate form. 09/23/20 REF LAB#:[id number] Order this test in the future with mneumonic [] . Silverman = [] , CPT CODES = []. Sample was sent to [] . Specimen requirements are [] . Please call the lab with any other questions. HIV 1+2 Ab [Presence] in Serum Laboratory test result [facility] ([facility]) <content>This assay was performed utiliz ing [...] in Serum or Plasma 23.5 ng/mL 30.0-100.0 [facility]) ID Date Data Source [id number] 09/13/2020 03:07:00 PM EST [facility] ([facility]) Name Value Range Interpretation Code Description Data Herlinda rce(s) Supporting Document(s) Methylmalonate [Moles/volume] in Serum or Plasma Laboratory test resu lt [facility] ([facility]) SEE SEPARATE REPORT Antinuclear Antibodies [facility] See Separate Report Testing performed at reference lab. Report copy to follow on a separate form. 09/30/20 REF LAB#:[id number] Herpes Zoster, Varicella IgG Laboratory test result [facility] [facility] SEE SEPARATE REPORT Ceruloplasmin [Mass/volume] in Serum or Plasma Laboratory test result [facility] ([facility]) SEE SEPARATE REPORT Copper [Mass/volume] in Serum or Plasma Laboratory test result [facility] ([facility]) SEE SEPARATE REPORT Zinc [Mass/volume] in Serum or Plasma Laboratory test result [facility] [facility] See Separate Report Aquaporin 4 receptor IgG Ab [Units/volum e] in Serum or Plasma by Immunofluorescence Laboratory test result [facility] T ([facility]) ID Date Data Source [id number] 09/13/2020 03:07:00 PM EST [facility] ([facility]) Name Value Range Interpretation Code Description Data Herlinda rce(s) Supporting Document(s) Interpretation Laboratory test result [facility] ([facility]) SEE SEPARATE REPORT JCV Antibody Laboratory test result [facility] ([facility]) SEE SEPARATE REPORT Index Value Laboratory test result [facility] T ([facility]) SEE SEPARATE REPORT JCV Antibody By Inhibition Laboratory test result [facility] ([facility]) SEE SEPARATE REPORT Interpretation Laboratory test result [facility] [facility] SEE SEPARATE REPORT ID Date Data Source [id number] 09/13/2020 03:07:00 PM EST [facility] ([facility] Name Value Range Interpretation Code Description Data Herlinda rce(s) Supporting Document(s) Homocysteine [Moles/volume] in Serum or Plasma Laboratory test result [facility] [facility] SEE SEPARATE REPORT Laboratory test finding (navigational concept) Laboratory test result [facility] [facility] REFERENCE INTERVAL: Negative No informative autoantibodies were detected in this evaluation. A negative result does not preclude a diagnosis of an inflammatory OLDER ADULT SOCIAL WORK SPECIALIST demyelinating disorder. ADDITIONAL INFORMATIO N This test was developed and its performance characteristics determined by [facility] in a manner consistent with CLIA requirements. This test has not been cleared or approved by the U.S. Food and Drug Administration. ID Date Data Source [id number] 09/22/2020 05:05:00 PM EST [facility] Name Value Range Interpretation Code Description Data [facility](s) Supporting Document(s) 2C9 Genotype [facility] Interpretation [facility] [...] individual drugs can vary. About 20% of theCaucasian population have at least one *2 or [...] individual results of thistest.Mayzent (siponimod) [package insert]. [place], [place]:[employer]; 2019.For more information on interpreting this report, pleasevisit [email or web address] or call Customer Service [phone] between the hours of 6:30am to 5:00pm PTM through Saturday.This assay meets the standards for performanc echaracteristics and all other quality assurance inspector and assurancerequirements established by CLIA. The results should not beused as the sole criteria for patient management. This testwas developed and its performance characteristicsdetermined by [employer]. It has not been clearedor approved by the FDA. This document contains private andconfidential health information protected by state andfederal law. If you have received this document in error,please call [phone]. The provision of this free testis not contingent on any requirement to utilize or purchasethis test, or any other product or service, in the future.Additionally, provision of this free test by [employer] is a form of patient supportwith no [...] PDF . [facility] ID Date Data Source [id number] 09/19/2020 07:05:00 PM EST [facility] Name Value Range Interpretation Code Description Data Herlinda rce(s) Supporting Document(s) Monogram Informed Consent Form [facility] Please Fax back to [phone]. Many [facility] require laboratoriesto have documentation that the appropriate [...] of the sample when testing is complete. [facility] did not receive any documentation of [...] signature Date Printed name Fax back to [facility] at [phone] [facility] ID Date Data Source [id number] 08/31/2020 05:58:50 PM [facility] Name Value Range Interpretation Code Description Data Herlinda rce(s) Supporting Document(s) Progress Note [facility] [id number]/[id number]MD3hS7uZEN2OAkVUjAdMxEzBwF6 [facility] [file] [id number] ID Date Data Source [id number] 08/15/2020 02:20:00 PM EST [facility] ([facility]) Name Value Range Interpretation Code Description Data Herlinda rce(s) Supporting Document(s) JCV Antibody Laboratory test result [facility] NT ([facility]) <content>Index interpretive criteria:</c ontent>
<content><0.20 negative</content>
<content>0.20-0.40 indeterminate</content>
<content>>0.40 positive</content>
<content></content> Interpretation Laboratory test result [facility] ([facility]) . Negative: Antibodies to JCV not [...] (natalizumab) US Prescribing Information. Index Value 0.14 [facility] ([facility]) Interpretation Laboratory test result [facility] ([facility]) . Positive: Antibodies to MAYRA virus (JCV) detected indicating the patient has been exposed to JCV at an undetermined time Negative: Antibodies to JCV not detected Performed at: [facility] [address] [place] [employer], [place] [id number] Irrigation District Manager: Farooq Askew MD, Phone: [phone] Performed at: RN - [facility] [id number] Irrigation District Manager: Vale Kilpatrick MD, Phone: [phone] JCV Antibody By Inhibition Laboratory test result [facility] ([place] [facility] ID Date Data Source [id number] 08/15/2020 02:18:00 PM EST [facility] ([facility]) Name Value Range Interpretation Code Description Data Herlinda rce(s) Supporting Document(s) Urea nitrogen [Mass/volume] in Serum or Plasma 16 mg/dL 7-18 [facility] ([facility]) Glucose [Mass/volume] in Serum or Plasma 93 mg/dL 74-99 [facility] ([facility]) 100-125 mg/dL PRE-DIABETES/FASTING >126 mg/dL DIABETES/FASTING Creatinine 0.5 mg/dL 0.6-1.3 [facility] ([facility]) Potassium [Moles/volume] in Serum or Plasma 4.6 meq/L 3.5-5.1 [facility] ([facility]) Sodium [Moles/volume] in Serum or Plasma 139 meq/L 136-145 [facility] ([facility]) Chloride [Moles/volume] in Serum or Plasma 102 meq/L 98-107 [facility] ([facility]) Carbon dioxide, total [Moles/volume] in Serum or Plasma 29 meq/L 21 -32 [facility] ([facility]) Calcium [Mass/volume] in Serum or Plasma 9.5 mg/dL 8.5-10.1 [facility] ([facility]) Total Bilirubin 0.5 mg/dL 0.2-1.0 [facility] ([facility]) Alkaline phosphatase isoenzyme [Units/volume] in Serum or Pl asma 92 mg/dL 46-116 [facility] ([facility]) Albumin [Mass/volume] in Serum or Plasma 4.0 g/dL 3.4-5.0 [facility] ([facility]) Alanine aminotransferase [Enzymatic activity/volume] in Seru m or Plasma 20 U/L 12-78 [facility] ([facility]) Aspartate aminotransferase [Enzymatic activity/volume] in Serum or Plasma 14 U/L 15-37 [facility] ([facility] ) Glomerular filtration rate/1.73 sq M pre dicted among non-blacks [Volume Rate/Area] in Serum or Plasma by Creatinine-based formula (MDRD) Laboratory test result [facility] [facility] Proteinase 3 Ab [Units/volume] in Serum 7.0 g/dL 6.4-8.2 [facility] ([facility]) A/G Ratio 1.33 CALC 1.00-1.90 [facility] ([place] [facility]) Glomerular filtration rate/1.73 sq M pre dicted among blacks [Volume Rate/Area] in Serum or Plasma by Creatinine-based formula (MDRD) Laboratory test result [facility] ([facility]) <content>CHRONIC KIDNEY DISEASE STAGING PER NKF</content>
<content></content>
<content>STAGE I & II GFR >= 60 NORMAL TO MILDLY DECREASED</content>
<content>STAGE III GFR 30-59 MODERATELY DECREASED</content>
<content>STAGE IV GFR 15-29 SEVERELY DECREASED</content>
<content>STAGE V GFR <15 VERY LITTLE GFR LEFT</content>
<content>ESRD GFR <15 ON MANUFACTURED BUILDINGS SUPERVISOR</content>
<content></content> ID Date Data Source [id number] 08/15/2020 02:18:00 PM EST [facility] ([facility]) Name Value Range Interpretation Code Description Data Herlinda rce(s) Supporting Document(s) Leukocytes [#/volume] in Blood by Automated count 6.8 x10*3/UL 4.1-10 .9 [facility] ([facility]) Erythrocytes [#/volume] in Blood by Automated count 4.55 x10*6/UL 4.2 0-6.30 [facility] ([facility]) Hemoglobin [Mass/volume] in Blood 14.4 g/dL 12.0-18.0 [facility] Hematocrit [Volume Fraction] of Blood by Automated count 41.2 % 3 7.0-51.0 [facility] MCH 31.7 pg 26.0-32.0 [facility] [facility]) MCHC 35.0 g/dL 31.0-38.0 [facility] ([place] [facility]) MCV 90.4 fL 80.0-97.0 [facility] ([place] [facility]) Platelets [#/volume] in Blood by Automated count 340 x10*3/UL 140-440 [facility] ([facility]) Erythrocyte distribution width [Ratio] by Automated count 12.4 % 11.6-13.7 [facility] ([facility]) Lymph % 10.1 % 10.0-58.5 [facility] ([place] [facility]) MPV 7.8 FL 7.8-11.0 [facility] [facility]) Neut % 87.3 % 37.0-92.0 [facility] [facility]) Mid % 2.6 % 1.7-9.3 [facility] [facility]) Lymph # 0.6 x10*3/UL 0.6-4.1 [facility] ([facility]) Neut # 5.9 x10*3/UL 2.0-7.8 [facility] ([facility]) Mid # 0.3 x10*3/UL 0.1-0.6 [facility] ([facility]) ID Date Data Source [id number] 07/27/2020 01:28:00 PM EST [facility] ([facility]) Name Value Range Interpretation Code Description Data Herlinda rce(s) Supporting Document(s) MAYRA Virus Dna PCR Whole Blood Laboratory test result [facility] ([facility]) No JCV DNA detected This test was developed and its performance characteristics determined by [employer]. It has not been cleared or approved by the Food and Drug Administration. The FDA has determined that such clearance or approval is not necessary. Performed at: [address] [id number] Irrigation District Manager: Grupo Silvestre MD, Phone: [phone] ID Date Data Source [id number] 07/27/2020 01:28:00 PM EST [facility] ([facility]) Name Value Range Interpretation Code Description Data Herlinda rce(s) Supporting Document(s) MAYRA virus DNA [Units/volume] (viral load) in Blood by Probe and target amplification method Laboratory test result [facility] ([facility]) ID Date Data Source [id number] 07/27/2020 01:26:00 PM EST [facility] ([facility]) Name Value Range Interpretation Code Description Data Herlinda rce(s) Supporting Document(s) Leukocytes [#/volume] in Blood by Automated count 6.4 x10*3/UL 4.1-10 .9 [facility] ([facility]) Erythrocytes [#/volume] in Blood by Automated count 4.55 x10*6/UL 4.2 0-6.30 [facility] ([facility]) Hemoglobin [Mass/volume] in Blood 14.5 g/dL 12.0-18.0 [facility] ([facility]) MCH 31.8 pg 26.0-32.0 [facility] [facility] Hematocrit [Volume Fraction] of Blood by Automated count 40.5 % 3 7.0-51.0 [facility] ([facility]) MCV 89.0 fL 80.0-97.0 [facility] [facility] MCHC 35.8 g/dL 31.0-38.0 [facility] [facility] Platelets [#/volume] in Blood by Automated count 335 x10*3/UL 140-440 [facility] ([facility]) Erythrocyte distribution width [Ratio] by Automated count 12.0 % 11.6-13.7 [facility] ([facility]) MPV 7.9 FL 7.8-11.0 [facility] [facility] Lymph % 7.1 % 10.0-58.5 [facility] [facility] Neut % 85.5 % 37.0-92.0 [facility] [facility] Lymph # 0.4 x10*3/UL 0.6-4.1 [facility] ([facility]) Mid % 7.4 % 1.7-9.3 [facility] [facility] Neut # 5.5 x10*3/UL 2.0-7.8 [facility] ([facility]) Mid # 0.5 x10*3/UL 0.1-0.6 [facility] ([facility]) ID Date Data Source [id number] 06/30/2020 01:21:00 PM EDT [facility] ([facility] ) Name Value Range Interpretation Code Description Data Herlinda rce(s) Supporting Document(s) MAYRA Virus Dna PCR Whole Blood Laboratory test result [facility] ([facility] ) No JCV DNA detected This test was developed and its performance characteristics determined by [facility]. It has not been cleared or approved by the Food and Drug Administration. The FDA has determined that such clearance or approval is not necessary. Performed at: [address] [id number] Irrigation District Manager: Grupo Silvestre MD, Phone: [phone] ID Date Data Source [id number] 06/30/2020 01:21:00 PM EDT [facility] Name Value Range Interpretation Code Description Data Herlinda rce(s) Supporting Document(s) MAYRA virus DNA [Units/volume] (viral load) in Blood by Probe and target amplification method Laboratory test result [facility] ([facility]) ID Date Data Source [id number] 06/30/2020 01:21:00 PM EDT [facility] ([facility]) Name Value Range Interpretation Code Description Data Herlinda rce(s) Supporting Document(s) MAYRA Virus Dna PCR Whole Blood Laboratory test result [facility] ([facility]) No JCV DNA detected This test was developed and its performance characteristics determined by [employer]. It has not been cleared or approved by the Food and Drug Administration. The FDA has determined that such clearance or approval is not necessary. Performed at: [address] [id number] Irrigation District Manager: Grupo Silvestre MD, Phone: [phone] ID Date Data Source [id number] 06/30/2020 01:19:00 PM EDT [facility] ([facility]) Name Value Range Interpretation Code Description Data Herlinda rce(s) Supporting Document(s) Glucose [Mass/volume] in Serum or Plasma 83 mg/dL 74-99 [facility] ([facility]) 100-125 mg/dL PRE-DIABETES/FASTING >126 mg/dL DIABETES/FASTING Urea nitrogen [Mass/volume] in Serum or Plasma 22 mg/dL 7-18 [facility] ([facility]) Creatinine 0.6 mg/dL 0.6-1.3 [facility] [facility] Sodium [Moles/volume] in Serum or Plasma 140 meq/L 136-145 [facility] ([facility]) Chloride [Moles/volume] in Serum or Plasma 105 meq/L 98-107 [facility] ([facility]) Potassium [Moles/volume] in Serum or Plasma 4.8 meq/L 3.5-5.1 [facility] ([facility]) Calcium [Mass/volume] in Serum or Plasma 9.1 mg/dL 8.5-10.1 [facility] ([facility]) Alkaline phosphatase isoenzyme [Units/volume] in Serum or Pl asma 94 mg/dL 46-116 [facility] ([facility]) Carbon dioxide, total [Moles/volume] in Serum or Plasma 30 meq/L 21 -32 [facility] ([facility]) Total Bilirubin 0.5 mg/dL 0.2-1.0 [facility] ([facility]) Aspartate aminotransferase [Enzymatic activity/volume] in Serum or Plasma 10 U/L 15-37 [facility] ([facility] ) Proteinase 3 Ab [Units/volume] in Serum 6.6 g/dL 6.4-8.2 [facility] ([facility]) Albumin [Mass/volume] in Serum or Plasma 3.8 g/dL 3.4-5.0 [facility] ([facility]) Alanine aminotransferase [Enzymatic activity/volume] in Seru m or Plasma 19 U/L 12-78 [facility] ([facility]) A/G Ratio 1.36 CALC 1.00-1.90 [facility] Glomerular filtration rate/1.73 sq M pre dicted among non-blacks [Volume Rate/Area] in Serum or Plasma by Creatinine-based formula (MDRD) Laboratory test result [facility] ([facility] ) Glomerular filtration rate/1.73 sq M pre dicted among blacks [Volume Rate/Area] in Serum or Plasma by Creatinine-based formula (MDRD) Laboratory [facility] <content>CHRONIC KIDNEY DISEASE STAGING PER NKF</content>
<content></content>
<content>STAGE I & II GFR >= 60 NORMAL TO MILDLY DECREASED</content>
<content>STAGE III GFR 30-59 MODERATELY DECREASED</content>
<content>STAGE IV GFR 15-29 SEVERELY DECREASED</content>
<content>STAGE V GFR <15 VERY LITTLE GFR LEFT</content>
<content>ESRD GFR <15 ON MANUFACTURED BUILDINGS SUPERVISOR</content>
<content></content> ID Date Data Source [id number] 06/30/2020 01:19:00 PM EDT [facility] ([facility]) Name Value Range Interpretation Code Description Data Herlinda rce(s) Supporting Document(s) Erythrocytes [#/volume] in Blood by Automated count 4.47 x10*6/UL 4.2 0-6.30 [facility] ([facility]) Leukocytes [#/volume] in Blood by Automated count 6.0 x10*3/UL 4.1-10 .9 [facility] ([facility]) NOTE: RESULT VERIFIED. Hematocrit [Volume Fraction] of Blood by Automated count 39.8 % 3 7.0-51.0 [facility] ([facility]) Hemoglobin [Mass/volume] in Blood 14.2 g/dL 12.0-18.0 [facility] ([facility]) MCV 89.0 fL 80.0-97.0 [facility] MCH 31.7 pg 26.0-32.0 [facility] MCHC 35.7 g/dL 31.0-38.0 [facility] Erythrocyte distribution width [Ratio] by Automated count 11.9 % 11.6-13.7 [facility] ([facility]) MPV 7.7 FL 7.8-11.0 [facility] Platelets [#/volume] in Blood by Automated count 305 x10*3/UL 140-440 [facility] ([facility]) Mid % 2.4 % 1.7-9.3 [facility] [facility] Lymph % 8.1 % 10.0-58.5 [facility] [facility] Neut % 89.5 % 37.0-92.0 [facility] [facility] Mid # 0.2 x10*3/UL 0.1-0.6 [facility] ([facility]) Lymph # 0.4 x10*3/UL 0.6-4.1 [facility] ([facility]) Neut # 5.4 x10*3/UL 2.0-7.8 [facility] ([facility]) ID Date Data Source [id number] 03/24/2020 02:19:00 PM EDT [facility] ([facility]) Name Value Range Interpretation Code Description Data Herlinda rce(s) Supporting Document(s) Neutrophils 72 % 28-66 [facility] ([facility]) Eosinophils 8 % 0-3 [facility] ([facility]) Lymphocytes 8 % 16-44 [facility] ([facility]) Bands 1 % [facility] Basophils 4 % 0-1 [facility]) Atypical Lymph 7 % 0-5 [facility] ([facility]) RBC Morphology Laboratory test result [facility] ([facility]) Platelet Estimate Laboratory test result [facility] ([facility]) ID Date Data Source [id number] 03/24/2020 02:19:00 PM EDT [facility] ([facility]) Name Value Range Interpretation Code Description Data Herlinda rce(s) Supporting Document(s) Cholesterol [Mass/volume] in Serum or Plasma 201 mg/dL 131-200 [facility] ([facility]) Cholesterol in HDL [Mass/volume] in Serum or Plasma 66 mg/dL 35-60 [facility] ([facility]) Cholesterol in LDL [Mass/volume] in Serum or Plasma by calcu lation 125 CALC 50-159 [facility] ([facility]) Triglyceride [Mass/volume] in Serum or Plasma 50 mg/dL 30-150 [facility] ([facility]) ID Date Data Source [id number] 03/24/2020 02:19:00 PM EDT [facility] ([facility]) Name Value Range Interpretation Code Description Data Herlinda rce(s) Supporting Document(s) Urea nitrogen [Mass/volume] in Serum or Plasma 10 mg/dL 7-18 [facility] ([facility]) Glucose [Mass/volume] in Serum or Plasma 89 mg/dL 74-99 [facility] ([facility]) 100-125 mg/dL PRE-DIABETES/FASTING >126 mg/dL DIABETES/FASTING Creatinine 0.5 mg/dL 0.6-1.3 [facility] Potassium [Moles/volume] in Serum or Plasma 4.4 meq/L 3.5-5.1 [facility] ([facility]) Sodium [Moles/volume] in Serum or Plasma 138 meq/L 136-145 [facility] ([facility]) Carbon dioxide, total [Moles/volume] in Serum or Plasma 32 meq/L 21 -32 [facility] ([facility]) Chloride [Moles/volume] in Serum or Plasma 101 meq/L 98-107 [facility] ([facility]) Calcium [Mass/volume] in Serum or Plasma 9.0 mg/dL 8.5-10.1 [facility] ([facility]) Alkaline phosphatase isoenzyme [Units/volume] in Serum or Pl asma 90 mg/dL 46-116 [facility] ([facility]) Total Bilirubin 0.5 mg/dL 0.2-1.0 [facility] ([facility]) Aspartate aminotransferase [Enzymatic activity/volume] in Serum or Plasma 14 U/L 15-37 [facility] ([facility] ) Alanine aminotransferase [Enzymatic activity/volume] in Seru m or Plasma 24 U/L 12-78 [facility] ([facility]) Albumin [Mass/volume] in Serum or Plasma 4.0 g/dL 3.4-5.0 [facility] ([facility]) Proteinase 3 Ab [Units/volume] in Serum 7.1 g/dL 6.4-8.2 [facility] ([facility]) A/G Ratio 1.29 CALC 1.00-1.90 [facility]) Glomerular filtration rate/1.73 sq M pre dicted among non-blacks [Volume Rate/Area] in Serum or Plasma by Creatinine-based formula (MDRD) Laboratory test result [facility] ([facility] ) Glomerular filtration rate/1.73 sq M pre dicted among blacks [Volume Rate/Area] in Serum or Plasma by Creatinine-based formula (MDRD) Laboratory test result [facility] <content>CHRONIC KIDNEY DISEASE STAGING PER NKF</content>
<content></content>
<content>STAGE I & II GFR >= 60 NORMAL TO MILDLY DECREASED</content>
<content>STAGE III GFR 30-59 MODERATELY DECREASED</content>
<content>STAGE IV GFR 15-29 SEVERELY DECREASED</content>
<content>STAGE V GFR <15 VERY LITTLE GFR LEFT</content>
<content>ESRD GFR <15 ON [employer]FA[employer]ED [employer]ILD[employer]PERVIS[employer]</content>
<content></content> ID Date Data Source [id number] 03/24/2020 02:19:00 PM EDT [facility] ([facility]) Name Value Range Interpretation Code Description Data Herlinda rce(s) Supporting Document(s) Erythrocytes [#/volume] in Blood by Automated count 4.71 x10*6/UL 4.2 0-6.30 [facility] ([facility]) Hemoglobin [Mass/volume] in Blood 14.6 g/dL 12.0-18.0 [facility] ([facility]) Leukocytes [#/volume] in Blood by Automated count 5.4 x10*3/UL 4.1-10 .9 [facility] ([facility]) NOTE: MANUAL DIFFERENTIAL SENT TO [facility] FOR VERIFICATION. Hematocrit [Volume Fraction] of Blood by Automated count 42.6 % 3 7.0-51.0 [facility] ([facility]) MCH 30.9 pg 26.0-32.0 [facility] [facility] MCV 90.5 fL 80.0-97.0 [facility] ([facility]) Erythrocyte distribution width [Ratio] by Automated count 12.3 % 11.6-13.7 [facility] ([facility]) MCHC 34.2 g/dL 31.0-38.0 [facility] [facility] MPV 7.8 FL 7.8-11.0 [facility] [facility] Platelets [#/volume] in Blood by Automated count 322 x10*3/UL 140-440 [facility] ([facility]) Lymph % 5.6 % 10.0-58.5 [facility] [facility] Mid % 5.8 % 1.7-9.3 [facility] Neut % 88.6 % 37.0-92.0 [facility] Lymph # 0.3 x10*3/UL 0.6-4.1 [facility] ([facility]) Mid # 0.3 x10*3/UL 0.1-0.6 [facility] ([facility]) Neut # 4.8 x10*3/UL 2.0-7.8 [facility] ([facility]) Procedure Social History Code Duration Value Status Description Data Source(s ) Alcohol intake 10/26/2020 12:00:00 AM EST Current non-d marie of alcohol (finding) completed Current non-drinker of alcohol (finding) [facility] Tobacco use and exposure 10/26/2020 12:00:00 AM EST Never used co mpleted Never used [facility] Smoking 10/26/2020 12:00:00 AM EST Never smoker completed Never s wikhanh [facility] Alcohol intake 08/31/2020 12:00:00 AM EST Current non-d marie of alcohol (finding) completed Current non-drinker of alcohol (finding) [facility] Smoking 04/14/2020 12:00:00 AM EDT Never Smoker completed Never S [facility] eCW1 ([facility]) Vital Signs ID Date Data Source UNK Name Value Range Interpretation Code Description Data Source(s) Oxygen saturation in Arterial blood by Pulse oximetry 97 % 97 % [facility] RM Air Body height 64.50 [in_i] 64.50 [in_i] [facility] 5'4.50" Heart rate 82 /min 82 /min [facility] ([facility]) Diastolic blood pressure 78 mm[Hg] 78 mm[Hg] [facility] ([facility]) Systolic blood pressure 122 mm[Hg] 122 mm[Hg] [facility] ([facility]) Body mass index (BMI) [Ratio] 23.7 kg/m2 23.7 k g/m2 [facility] ([facility]) Oxygen saturation in Arterial blood by Pulse oximetry 98 % 98 % [facility] RM Air Body weight 140.00 [lb_av] 140.00 [lb_av] [facility] ([facility]) Body height 64.50 [in_i] 64.50 [in_i] [facility] 5'4.50" Heart rate 86 /min 86 /min [facility] ([facility] Diastolic blood pressure 60 mm[Hg] 60 mm[Hg] [facility] ([facility]) Systolic blood pressure 112 mm[Hg] 112 mm[Hg] [facility] ([facility]) Body mass index (BMI) [Ratio] 24.0 kg/m2 24.0 k g/m2 [facility] ([facility]) Body weight 142.00 [lb_av] 142.00 [lb_av] [facility] T ([facility]) Body height 64.50 [in_i] 64.50 [in_i] [facility] 5'4.50" Heart rate 86 /min 86 /min [facility] ([facility] Diastolic blood pressure 78 mm[Hg] 78 mm[Hg] [facility] ([facility]) Systolic blood pressure 120 mm[Hg] 120 mm[Hg] [facility] ([facility]) Oxygen saturation in Arterial blood by Pulse oximetry 99 % 99 % [facility] ([facility]) Air Body height 64.50 [in_i] 64.50 [in_i] [facility] 5'4.50" Heart rate 90 /min 90 /min [facility] ([facility] Diastolic blood pressure 60 mm[Hg] 60 mm[Hg] [facility] ([facility]) Systolic blood pressure 102 mm[Hg] 102 mm[Hg] [facility] ([facility]) Diastolic blood pressure 76 mm[Hg] 76 mm[Hg] eCW1 ([facility]) Systolic blood pressure 128 mm[Hg] 128 mm[Hg] e CW1 ([facility]) Body mass index (BMI) [Ratio] 23.32 kg/m2 23.32 kg/m2 W1 ([facility]) Body height [in_i] W1 ([facility]) Body weight 138 [lb_av] 138 [lb_av] eCW1 [facility] Oxygen saturation in Arterial blood by Pulse oximetry 96 % 96 % [facility] ([facility]) RM Air Body height 64.50 [in_i] 64.50 [in_i] [facility] 5'4.50" Heart rate 85 /min 85 /min [facility] ([facility]) Diastolic blood pressure 60 mm[Hg] 60 mm[Hg] [facility] ([facility]) Systolic blood pressure 110 mm[Hg] 110 mm[Hg] [facility] ([facility]) Body mass index (BMI) [Ratio] 23.7 kg/m2 23.7 k g/m2 [facility] ([facility]) Body weight 140.50 [lb_av] 140.50 [lb_av] [facility] T ([facility]) Body height 64.50 [in_i] 64.50 [in_i] [facility] 5'4.50" Diastolic blood pressure 60 mm[Hg] 60 mm[Hg] [facility]) Systolic blood pressure 100 mm[Hg] 100 mm[Hg] [facility] ([facility]) ID Date Data Source [id number] 11/07/2020 10:52:22 PM [facility] Name Value Range Interpretation Code Description Data Source(s) TRANSFER FROM [facility] ID Date Data Source [id number] 10/26/2020 02:49:20 PM [facility] Value Range Interpretation Code Description Data Source(s) WEIGHT RECORDED 140 lb 140 lb [facility] ID Date Data Source [id number] 09/01/2020 10:27:34 AM [facility] Value Range Interpretation Code Description Data Source(s) WEIGHT RECORDED 140 lb 140 lb [facility] Patient Treatment Plan of Care Planned Activity Planned Date Details Description Data Source (s) methylPREDNISolone Sodium Succ 1000 MG I njection Solution Reconstituted (SOLU-MEDROL) 10/26/2020 12:00:00 AM [facility] gabapentin 300 MG Oral Capsule 08/20/2020 12:00:00 AM [facility] Estradiol 0.1 MG/ML Vaginal Cream 04/14/2020 12:00:00 AM EDT eCW1 ([facility])
--- NOTE | 2020-11-08 02:00 | REPVR ---
PROCEDURE INFORMATION: Exam: US Duplex Lower Extremity Veins, Bilateral Exam date and time: 11/08/2020 1:51 AM Age: 60 years old Clinical indication: Edema, localized; Lower extremity, bilateral; Additional info: Swelling right larger than left, but left is more red TECHNIQUE: Imaging protocol: Real-time duplex ultrasound of the extremities with 2-D yancey scale, color Doppler flow and spectral waveform analysis with image documentation. Complete exam focused on the bilateral lower extremity veins. COMPARISON: US Duplex, Ext,LOWER veins,unilat 10/23/2017 12:44 PM FINDINGS: Right deep veins: Common femoral, femoral, proximal profunda femoral and popliteal veins are patent without thrombus. Normal Doppler waveforms. Normal compressibility and/or augmentation response. Right superficial veins: Saphenofemoral junction is patent without thrombus. Left deep veins: Common femoral, femoral, proximal profunda femoral and popliteal veins are patent without thrombus. Normal Doppler waveforms. Normal compressibility and/or augmentation response. Left superficial veins: Saphenofemoral junction is patent without thrombus. Soft tissues: No abnormal focal fluid collection. IMPRESSION: No evidence of deep vein thrombosis. Electronically signed by: Александр Bridges On 11/08/2020 02:00:22 AM
[2020-11-08 02:02] VITALS: BP 150/81
[2020-11-08] MEDS: ACETAMINOPHEN TAB 650MG DOSE (2X325MG) PO PRN ×2 (02:12→08:01)
[2020-11-08 06:00] VITALS: BP 119/65
[2020-11-08 07:47] LABS: HEMATOCRIT 42.2 % (36.0-47.0); MEAN CORPUSCULAR HEMOGLOBIN 30.8 pg (27.0-33.0); MEAN CORPUSCULAR HGB CONC 33.2 g/dl (32.0-36.5); MEAN CORPUSCULAR VOLUME 92.7 fl (80.0-96.0); PLATELET COUNT, AUTOMATED 310 10^3/uL (150-450); RED BLOOD COUNT 4.55 10^6/uL (4.00-5.40); WHITE BLOOD COUNT 7.1 10^3/uL (4.0-10.0)
[2020-11-08] MEDS: GABAPENTIN 300 MG CAP PO SCH (07:59)
[2020-11-08] MEDS: BACLOFEN 10 MG TAB PO SCH (07:59)
[2020-11-08 08:03] LABS: BLOOD UREA NITROGEN 13 MG/DL (7-18); CALCIUM LEVEL 8.4 MG/DL (8.8-10.2); CARBON DIOXIDE LEVEL 30 MEQ/L (21-32); CHLORIDE LEVEL 104 MEQ/L (98-107); CREATININE FOR GFR 0.64 MG/DL (0.55-1.30); GLOMERULAR FILTRATION RATE > 60.0 (>45); GLUCOSE, FASTING 87 MG/DL (70-100); POTASSIUM SERUM 4.4 MEQ/L (3.5-5.1); SODIUM LEVEL 141 MEQ/L (136-145)
[2020-11-08] MEDS ORDERED: ENOXAPARIN 40MG/0.4ML SYRINGE (J1650 PER 10MG) SC SCH (09:00)
--- NOTE | 2020-11-08 09:27 | IPN ---
PROGRESS NOTE DATE: 11/08/2020 SUBJECTIVE: Verónica is [facility]. She has a history of multiple sclerosis, recent hospitalization at [facility] for high dose corticosteroid therapy. She failed to respond to this. She had a fall at home, legs became too weak to walk, she was brought to the Emergency Room. Her neurologist is Dr. Nieto at [facility] Neurology Department, contact was made yesterday, appreciate Dr. Nieto's input. Patient does not feel any better this morning. She feels she has not responded to the treatment and states "I think I feel worse." PHYSICAL EXAMINATION: VITAL SIGNS: Vital signs are stable. Blood pressure 119/65. GENERAL: Alert, conversant, in no distress. LUNGS: Clear. HEART: Regular rate and rhythm. ABDOMEN: Soft, nontender. EXTREMITIES: No peripheral edema. Lower extremities have 4/5 strength, more on the right than the left, the left is 4-/5. Upper extremity strength normal. Hyperreflexic in all extremities. LABORATORY DATA: CBC is normal. Electrolytes are unremarkable. Blood sugar is 87. IMPRESSION: 1. Exacerbation of multiple sclerosis, holding off on more steroids. She did not respond to the recent regimen. Awaiting input from Dr. Nieto. Continue her home medications of tizanidine, Baclofen and Gabapentin and get Physical Therapy. 2. Anxiety and depression, continue Duloxetine. 3. Elevated free T4. She had a free T4 and TSH done in the Emergency Room. She just received high dose intravenous corticosteroids which would affect her pituitary thyroid access, would caution against routine thyroid function testing in Emergency Room patients particularly after high dose steroids.
--- NOTE | 2020-11-08 18:38 | DSES ---
DISCHARGE SUMMARY DATE OF ADMISSION: 11/07/2020 DATE OF DISCHARGE: 11/08/2020 DISCHARGE DIAGNOSIS: Exacerbation of multiple sclerosis. BRIEF HISTORY: Verónica Chi was admitted with leg weakness. She had a fall at home that left her too weak to walk. She recently had been admitted to the [facility] for high dose steroid therapy for exacerbation of multiple sclerosis. HOSPITAL COURSE: She was only an acute bed for a day. She was no better the day after admission than she was prior to that. She says, "In fact I think I feel worse." Lab work was obtained and was unremarkable. The patient was transferred to ARU on her at-home medical regimen for rehabilitation.
--- NOTE | 2020-11-08 19:43 | ECGEPIP ---
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
== END 2020-11-08 14:07 | DRG 60 ==
LOC: EDBD 17:23 → M ED 17:23 → M ED INP 11-08 00:49 → M MSPAV 11-08 02:02
PROVIDERS: ADMIT Internal Medicine; ATTEND Family Medicine
DX: G35 Multiple sclerosis (principal); N31.9 Neuromuscular dysfunction of bladder, unspecified; F41.8 Other specified anxiety disorders; Z79.899 Other long term (current) drug therapy; F32.9 Major depressive disorder, single episode, unspecified

== ENCOUNTER 2020-11-08 11:52 | Inpatient (IN) | payer MEDICARE ==
[~2020-11-08] VITALS: Ht 165.1 cm; Wt 68.7 kg
[~2020-11-08 11:52] MED LIST changes: +ACET-907 PO; +ADVITAB PO; +ASPI-569 PO; -ASPI81TAEC PO; +DULO1CAP6 PO; +GABA-282 PO; +TIZA1TAB12 PO
[2020-11-08 14:15] VITALS: BP 135/59
--- OUTSIDE RECORDS SUMMARY | 2020-11-08 15:27 | CCD ---
Author Author [facility] Organization [facility] Address Unknown Phone Unavailable Care Team Providers Care Stunt Performer Name Role Phone Brittny, Loly DO Unavailable [...] Foster Unavailable Raghu MD, A Foster Unavailable Erath, Luz MEAT STUFFER Unavailable Unavailable Jeff, Luz MEAT STUFFER Unavailable Unavailable Jeff, Luz MEAT STUFFER Unavailable Unavailable Erath, Luz MEAT STUFFER Unavailable Unavailable Erath, Luz MEAT STUFFER Unavailable Unavailable Erath, Luz MEAT STUFFER Unavailable Unavailable Erath, Luz MEAT STUFFER Unavailable Unavailable Erath, Luz MEAT STUFFER Unavailable Unavailable Erath, Luz MEAT STUFFER Unavailable Unavailable Erath, Luz MEAT STUFFER Unavailable Unavailable Erath, Luz MEAT STUFFER Unavailable Unavailable Erath, Luz MEAT STUFFER Unavailable Unavailable Erath, Luz MEAT STUFFER Unavailable Unavailable Erath, Luz MEAT STUFFER Unavailable Unavailable Erath, Luz MEAT STUFFER Unavailable Unavailable Jeff, Luz MEAT STUFFER Unavailable Unavailable Jeff, Luz MEAT STUFFER Unavailable Unavailable Erath, Luz MEAT STUFFER Unavailable Unavailable Erath, Luz MEAT STUFFER Unavailable Unavailable Erath, Luz MEAT STUFFER Unavailable Unavailable Jeff, Luz MEAT STUFFER Unavailable Unavailable Erath, Luz MEAT STUFFER Unavailable Unavailable Erath, Luz MEAT STUFFER Unavailable Unavailable Jeff, Luz MEAT STUFFER Unavailable Unavailable Erath, Luz MEAT STUFFER Unavailable Unavailable Erath, Luz MEAT STUFFER Unavailable Unavailable Erath, Luz MEAT STUFFER Unavailable Unavailable Erath, Luz MEAT STUFFER Unavailable Unavailable Jeff, Luz MEAT STUFFER Unavailable Unavailable Erath, Luz MEAT STUFFER Unavailable Unavailable Erath, Luz MEAT STUFFER Unavailable Unavailable Jeff, Luz MEAT STUFFER Unavailable Unavailable Debbi DELATORRE MD Unavailable Unavailable [...] is protected by Article 27-F of the [facility] Public Health law. If you continue you may have access to information: Regarding HIV / AIDS; Provided by facilities licensed or operated by the [facility] Office of Mental Health; or Provided by the [facility] Office for People With Developmental Disabilities. If such information is present, then the following [facility] mandated warning applies: This information has been [...] law may result in a fine or detention sentence or both. A general authorization for the release of medical or other information is NOT sufficient authorization for further disc losure. Family History Family Member Name Family Member Gender Family Member Status Date o f Status Description Data Source(s) Unknown Male Problem [facility] ([facility]) Unknown Female Problem [facility] ([facility] Unknown Female Problem [facility] ([facility] Unknown Female Problem [facility] ([facility] Encounters Encounter Providers Location Date Indications Data Source(s ) Outpatient Attender: Foster Krishnamurthy MD 01/26/2021 12:00:00 A M [facility] Outpatient Attender: MANDY DELATORRE MD 12/27/2020 12:00:00 AM [facility] Outpatient Attender: Foster Krishnamurthy MD 12/12/2020 12:00:00 A M [facility] Outpatient 11/07/2020 10:52:00 PM EST neurology consult [facility] neurology consult Outpatient Attender: Luz LANGE [id number] 12:00:00 AM EST - 10/26/2020 02:48:40 PM EST Multiple sclerosis [facility] Multiple sclerosis Outpatient Attender: Foster Krishnamurthy MD 10/26/2020 12:00:00 A M [facility] Outpatient Attender: Foster Krishnamurthy MDReferrer: JOSUE PAIGE MD [id number] 08/31/2020 12:00:00 AM EST - 08/31/2020 10:27:15 AM EST Multiple sclerosis [facility] Multiple sclerosis Outpatient Attender: JOSUE PAIGE MD Main office - [facility] n 08/25/2020 03:15:00 PM EST [facility] ([facility] Outpatient Attender: Loly Hanks 08/15 12:45:00 PM EST [facility] ([facility] ) Outpatient Attender: JOSUE PAIGE MD Main office - [facility] nimisha 07/19/2020 03:45:00 PM EDT [facility] ([facility]) Outpatient Attender: Loly Hanks 07/15 02:15:00 PM EDT [facility] ([facility] ) Outpatient Attender: Loly Hanks 06/10 03:00:00 PM EDT [facility] ([facility] ) Outpatient Attender: JOSUE PAIGE MD Main office - [facility] n 05/09/2020 09:45:00 AM EDT [facility] ([facility]) Outpatient Attender: Loly Hanks 04/29 02:45:00 PM EDT MED[facility] ([facility] ) (WC 30ESGYN) WCenter 30 min est windows consultant [address] [place] [address] 04/14/2020 12:00:00 AM EDT eCW1 ([facility]) Outpatient Attender: Loly Hanks 03/24 02:15:00 PM EDT [facility] ([facility] ) Outpatient Attender: JOSUE PAIGE MD Main office - [facility] nimisha 02/26/2020 12:45:00 PM EDT [facility] ([facility]) Outpatient Attender: Loly Hanks 01/21 11:00:00 AM EDT [facility] ([facility] ) Outpatient Attender: JOSUE PAIGE MD Main office - [facility] 01/14/2020 03:00:00 PM EDT [facility] ([facility] ) Outpatient Attender: Loly Hanks 10/15 12:00:00 PM EST [facility] ([facility] ) Medications Medication Brand Name Start Date Product Form Dose Route Admi nistrative Instructions Pharmacy Instructions Status Indications Reaction Description Data Source(s) methylPREDNISolone Sodium Succ 1000 MG I njection Solution Reconstituted (SOLU-MEDROL) [id number] 10/26/2020 12:00:00 AM EST active 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 [facility] Secondary progressive multiple sclerosis gabapentin 300 MG Oral Capsule Gabapentin 300 MG Oral Capsule (NEURONTIN) Gabapentin 300 MG Oral Capsule (NEURONTIN) 08/20/2020 12:00:00 AM EST 300 mg Oral active Take 300 mg by mouth Three times daily [facility] duloxetine 30 MG Delayed Release Oral Capsule Duloxetine HCL 08/15/2020 12:00:00 AM EST ORAL active [facility] ([facility]) teriflunomide 7 MG Oral Tablet [Aubagio] Aubagio 08/09/2020 12:00: 00 AM EST ORAL active [facility] ([facility]) NITROFURANTOIN, MACROCRYSTALS 25 MG / Ni trofurantoin, Monohydrate 75 MG Oral Capsule Nitrofurantoin Monohyd Macro 08/08/2020 12:00:00 AM EST ORAL active [facility] ([facility]) Primidone 50 MG Oral Tablet Primidone 07/19/2020 12:00:00 AM EDT ORAL active [facility] ([facility] ) duloxetine 60 MG Delayed Release Oral Capsule Duloxetine HCL 07/15/2020 12:00:00 AM EDT active [facility] ([facility]) Amlodipine 5 MG Oral Tablet Amlodipine Besylate 06/10/2020 12:00:00 A M EDT ORAL active [facility] ([facility]) tizanidine 4 MG Oral Tablet Tizanidine HCL 05/27/2020 12:00:00 AM EDT ORAL active [facility] ([facility]) gabapentin 300 MG Oral Capsule Gabapentin 05/03/2020 12:00:00 AM EDT ORAL active [facility] ([facility], ) ropinirole 1 MG Oral Tablet Ropinirole HCL 04/29/2020 12:00:00 AM EDT ORAL active [facility] ([facility]) Diclofenac Sodium 0.01 MG/MG Topical Gel Diclofenac Sodium 04/28/2020 12:00:00 AM EDT active [facility] ([facility] Estradiol 0.1 MG/ML Vaginal Cream Estradiol 0.1 MG/GM Estrad iol 0.1 MG/GM 04/14/2020 12:00:00 AM EDT active Estradiol 0.1 MG/GM eCW1 ([facility]) Amlodipine 2.5 MG Oral Tablet Amlodipine Besylate 03/24/2020 12:00: 00 AM EDT ORAL completed [facility] ([facility]) Diclofenac Sodium 0.03 MG/MG Topical Gel Diclofenac Sodium 03/23/2020 12:00:00 AM EDT completed [facility] ([facility] Whisper Ject Autoinjector 03/21/2020 12:00:00 AM EDT active [facility] ([facility], ) Glatopa Glatopa 02/26/2020 12:00:00 AM EDT active [facility] ([facility] ) Glatopa Glatopa 02/26/2020 12:00:00 AM EDT SUBCUTANEOUS active MED[facility] ([facility], ) duloxetine 30 MG Delayed Release Oral Capsule Duloxetine HCL 01/15/2020 12:00:00 AM EDT ORAL completed [facility] ([facility]) NITROFURANTOIN, MACROCRYSTALS 25 MG / Ni trofurantoin, Monohydrate 75 MG Oral Capsule [Macrobid] Macrobid 09/10/2019 12:00:00 AM EST ORAL active [facility] ([facility]) Primidone 50 MG Oral Tablet Primidone 09/03/2019 12:00:00 AM EST ORAL completed [facility] ([facility] ) gabapentin 300 MG Oral Capsule Gabapentin 09/03/2019 12:00:00 AM EST completed [facility] ([facility], ) Insurance Providers Payer name Policy type / Coverage type Policy ID Covered libertarian ID Covered libertarian's relationship to richard Policy Richard Plan Information A[employer] HE[employer] C[employer] OPTIONS [id number] SP [id number] MEDICARE [id number] SP [id number] AARP U [id number] Self [id number] MEDICARE A [id number] Self [id number] V79 [employer]AR [employer] CARE OPTIONS [id number] SP [id number] [facility] [id number] Spouse [id number] MEDICARE A [id number] Self [id number] [facility] [id number] SP [id number] [facility] [id number] SP [id number] [facility] Health Maintenance Organization (HMO) [id number] Self [id number] [facility] Trad/MX Medigap Part B [id number] Family Depe ndent [id number] [facility] Trad/[place] Medigap Part B [id number] Family Depe ndent [id number] [facility] Trad/[place] Medigap Part B [id number] Family Depe ndent [id number] Medicare Natl Govt Servic Medicare Primary [id number] Self [id number] [facility] Healthcare Commercial [id number] Family Dependent [id number] [facility] Trad/[place] Medigap Part B [id number] Medicare Medicare Primary [id number] Self [id number] [facility] Health Plans Commercial [id number] Family Dependent [id number] [facility] HEALTH CARE [id number] SP [id number] ANSI-Not a Secondary Insurance [id number] ANSI-Medicare Part B [id number] ANSI-Medicare Part B [id number] ANSI-Not a Secondary Insurance [id number] [facility] Health Maintenance Organization ([facility]) [id number] Self [id number] [place] Medigap Part B [id number] Family Depe ndent [id number] [facility] Trad/[place] Medigap Part B [id number] Family Depe ndent [id number] [facility] Trad/[place] Medigap Part B [id number] Family Depe ndent [id number] Medicare Natl Govt Servic Medicare Primary [id number] Self [id number] Medicare Medicare Primary [id number] Self [id number] [facility] [id number] SP [id number] [facility] Maintenance Organization (O) [id number] Self [id number] [facility] Trad/[place] Medigap Part B [id number] Family Depe ndent [id number] [facility] Trad/[place] Medigap Part B [id number] Family Depe ndent [id number] [facility] Trad/[place] Medigap Part B [id number] Family Depe ndent [id number] Medicare Natl Govt Servic Medicare Primary [id number] Self [id number] Medicare Medicare Primary [id number] Self [id number] [facility] O [id number] S [id number] MEDICARE C [id number] S [id number] [facility] Health Maintenance Organization ([facility]) [id number] Self [id number] [facility] Trad/[place] Medigap Part B [id number] Family Depe ndent [id number] [facility] Trad/[place] Medigap Part B [id number] Family Depe ndent [id number] [facility] Trad/[place] Medigap Part B [id number] Family Depe ndent [id number] Medicare Natl Govt Servic Medicare Primary [id number] Self [id number] ANSI-Medicare Part [id number] ANSI-Not a Secondary Insurance [id number] Medicare Medicare Primary [id number] Self [id number] [facility] [id number] [facility] [id number] MEDICARE [id number] SP [id number] A [employer] [facility] Health Maintenance Organization (HMO) [id number] Self [id number] [place] Medigap Part B [id number] Family Depe ndent [id number] [place] Medigap Part B [id number] Family Depe ndent [id number] [place] Medigap Part B [id number] Family Depe ndent [id number] Medicare Natl Govt Servic Medicare Primary [id number] Self [id number] [employer] Health Plans Commercial [id number] Family Dependent [id number] Medicare Medicare Primary [id number] Self [id number] [facility]) [id number] Self [id number] [place] Commercial [id number] Family Dependen t [id number] [place] Commercial [id number] Family Dependen t [id number] [place] Commercial [id number] Family Dependen t [id number] Medicare Natl Govt Servic Medicare Primary [id number] Self [id number] [employer] [facility] Health Maintenance Organization (HMO) [id number] Self [id number] [place] Commercial [id number] Family Dependen t [id number] [place] Commercial [id number] Family Dependen t [id number] [place] Commercial [id number] Family Dependen t [id number] Medicare Natl Govt Servic Medicare Primary [id number] Self [id number] Blue Cross Blue Shield P [id number] SELF [id number] Medicare C [id number] SELF [id number] A [place] Medigap Part B [id number] Family Depend ent [id number] Medicare Medicare Primary [id number] Self 05 [id number] [employer] HE[employer] CARE O [id number] S 80 [id number] MEDICARE C [id number] S [id number] A [place] Medigap Part B [id number] Family Depend ent [id number] Medicare Medicare Primary [id number] Self 05 [id number] [place] PPO 302/307 [id number] [employer] Health Maintenance Organization (HMO) [id number] Self [id number] [place] Tr[place] Commercial [id number] Family Dependen t [id number] [place] Commercial [id number] Family Dependen t [id number] [place] Trad/[place] Commercial [id number] Family Dependen t [id number] Medicare Natl Govt Servic Medicare Primary [id number] Self [id number] [place] Medigap Part B [id number] Family Depend ent [id number] Medicare Medicare Primary [id number] Self 05 [id number] [place] PPO 302/307 [id number] [id number] MEDICARE [id number] SP [id number] A [place] Medigap Part B [id number] Family Depend ent [id number] Medicare Medicare Primary [id number] Self 05 [id number] [place] Medigap Part B [id number] Family Depend ent [id number] Medicare Medicare Primary [id number] Self 05 [id number] EXCELLUS BCBS B [id number] S [id number] [place] Medigap Part B [id number] Family Depend ent [id number] Medicare Medicare Primary [id number] Self 05 [id number] [place] Medigap Part B [id number] Family Depend ent [id number] Medicare Medicare Primary [id number] Self 05 [id number] [employer] Health Maintenance Organization (HMO) [id number] Self [id number] [place] Commercial [id number] Family Dependen t [id number] [place] Trad/[place] Commercial [id number] Family Dependen t [id number] [place] Trad/[place] Commercial [id number] Family Dependen t [id number] Medicare Natl Govt Servic Medicare Primary [id number] Self [id number] [place] Medigap Part B [id number] Family Depend ent [id number] Medicare Medicare Primary [id number] Self 05 [id number] [place] Trad/[place] Commercial Family Dependent [employer] o Health Maintenance Organization (HMO) Usbpi Self Usbpi [place] Trad/[place] Commercial [id number] Family Dependent 804 [place] Trad/[place] Commercial [id number] [place] Trad/[place] Commercial 802 Family Dependent 802 Medicare Natl Govt Servic Medicare Primary Self [place] PPO 302/307 [id number] [id number] [place] Medigap Part B Family Dependent Medicare Medicare Primary Self EXCELLUS C [id number] Self [id number] EXCELLUS H [id number] Self [id number] MEDICARE A [id number] Self [id number] [place] PPO 302/307 [id number] HU2 [id number] [place] PPO 302/307 [id number] HU2 [id number] Problems, Conditions, and Diagnoses Code Display Name Description Problem Type Effective Dates Data Source(s) 044680298 Peripheral vascular disease Peripheral vascular diseas e Problem 10/23/2019 12:00:00 AM EST [facility] ([facility] neurology consult neurology consult Diagnosis 11/07/2020 10:52:00 PM [facility] G35 Multiple sclerosis Multiple sclerosis Diagnosis 0 05:47:48 PM [facility] G82.20 Paraplegia, unspecified Paraplegia, unspecified Diagno sis 08/31/2020 09:30:03 AM [facility] R25.1 Tremor, unspecified Tremor, unspecified Diagnosis 1 11/01/2019 08:59:49 AM [facility] R53.1 Weakness Weakness Diagnosis 08/31/2020 08:59:49 AM [facility] E55.9 Vitamin D deficiency, unspecified Vitamin D defi ciency, unspecified Diagnosis 08/26/2020 04:46:55 PM [facility] Surgeries/Procedures Procedure Description Date Indications Data Source(s) DEBRIDEMENT NAIL ANY METHOD 08/24/2020 12:00:00 AM EST [facility] ([facility] DEBRIDEMENT NAIL ANY METHOD 03/23/2020 12:00:00 AM EDT [facility] ([facility] MRI Brain W/O Contrast, Followed By Contrast 0 12:00:00 AM EDT MED[facility] ([facility] ) MRI Brain W/O Contrast, Followed By Contrast 0 12:00:00 AM EDT [facility] ([facility] ) MRI Spine Cervical W/O Contrast, Followed By Contrast 03/07/2020 12:00:00 AM EDT [facility] ([facility] MRI Spine Cervical W/O Contrast, Followed By Contrast 03/07/2020 12:00:00 AM EDT [facility] ([facility] MRI Spine Thoracic W/O Contrast, Followed By Contrast 03/07/2020 12:00:00 AM EDT [facility] ([facility] MRI Spine Thoracic W/O Contrast, Followed By Contrast 03/07/2020 12:00:00 AM EDT [facility] ([facility] ) DEBRIDEMENT NAIL ANY METHOD 10/16/2019 12:00:00 AM EST [facility] ([facility] MRI Brain W/O Contrast, Followed By Contrast 0 12:00:00 AM EST [facility] ([facility]) MRI Brain W/O Contrast, Followed By Contrast 0 12:00:00 AM EST [facility] ([facility] MRI Spine Cervical W/O Contrast, Followed By Contrast 10/05/2019 12:00:00 AM EST [facility] ([facility]) MRI Spine Cervical W/O Contrast, Followed By Contrast 10/05/2019 12:00:00 AM EST [facility] ([facility]) MRI Spine Thoracic W/O Contrast, Followed By Contrast 10/05/2019 12:00:00 AM EST [facility] ([facility]) MRI Spine Thoracic W/O Contrast, Followed By Contrast 10/05/2019 12:00:00 AM EST [facility] ([facility] Results ID Date Data Source [id number] 10/26/2020 02:27:04 PM EST [facility] Name Value Range Interpretation Code Description Data Herlinda rce(s) Supporting Document(s) Progress Note [facility] KTARVm1kHiULXoTe71/FKIexDVXbi9UzEDjbTXc2YDjaSOQyR5SgKDJ4oY5pLYA8FAjKAmQjLlTaWmYd [facility] [file] bus mechanic+IsY4ommUZWnODtt7PgB5zIlBKUikeLYqtbrW1IqjShbYvuEXFQ7NiB+OV+4DXgLeoGBIHRgFe+Xo [file] AgICAgICAgICAgICAgICAgICAgICAgICAgICAgICAgICAgICAgICAgICAgICAgICAgICAgICAgICAgIC AgICAgICAgICAgICAgICAgICAgICAgICAgICAgDQog ICAgICAgICAgICAgICAgICAgICAgICAgICAgICAgICAgICAgICAgICAgICAgICAgICAgICAgICAgICAg ICAgICAgICAgICAgICAgICAgICAgICAgICAgICAgICAgICAgICAgDQogICAgICAgICAgICAgICAgICAg ICAgICAgICAgICAgICAgICAgICAgICAgICAgICAgIC AgICAgICAgICAgICAgICAgICAgICAgICAgICAgICAgICAgICAgICAgICAgICAgICAgDQogICAgICAgIC AgICAgICAgICAgICAgICAgICAgICAgICAgICAgICAgICAgICAgICAgICAgICAgICAgICAgICAgICAgIC AgICAgICAgICAgICAgICAgICAgICAgICAgICAgICAg DQogICAgICAgICAgICAgICAgICAgICAgICAgICAgICAgICAgICAgICAgICAgICAgICAgICAgICAgICAg ICAgICAgICAgICAgICAgICAgICAgICAgICAgICAgICAgICAgICAgICAgDQogICAgICAgICAgICAgICAg ICAgICAgICAgICAgICAgICAgICAgICAgICAgICAgIC AgICAgICAgICAgICAgICAgICAgICAgICAgICAgICAgICAgICAgICAgICAgICAgICAgICAgDQogICAgIC AgICAgICAgICAgICAgICAgICAgICAgICAgICAgICAgICAgICAgICAgICAgICAgICAgICAgICAgICAgIC AgICAgICAgICAgICAgICAgICAgICAgICAgICAgICAg ICAgDQogICAgICAgICAgICAgICAgICAgICAgICAgICAgICAgICAgICAgICAgICAgICAgICAgICAgICAg ICAgICAgICAgICAgICAgICAgICAgICAgICAgICAgICAgICAgICAgICAgICAgDQogICAgICAgICAgICAg ICAgICAgICAgICAgICAgICAgICAgICAgICAgICAgIC AgICAgICAgICAgICAgICAgICAgICAgICAgICAgICAgICAgICAgICAgICAgICAgICAgICAgICAgDQogIC AgICAgICAgICAgICAgICAgICAgICAgICAgICAgICAgICAgICAgICAgICAgICAgICAgICAgICAgICAgIC AgICAgICAgICAgICAgICAgICAgICAgICAgICAgICAg INTnQWWtNGv0F8vgAWOcQRTmMY6qKNb1Id0+BYeDVbXeKYF9mrZilM9VCQ8dr6VkMWsmAXHus5YkXJk5 UU7DYLQlGKhzAS4FGAmvde5BJCVkUETaiEGMq1nbFiEmVGA2UWXeYswsKV2IREXmE5dyzmFoJSSoVBZA IDcgMCBSIDkgMCBSIDExIDAgUiAxMyAwIFIgMTUgMC SLTA1DJyRzO0WzgA50XRZEOc7+JEwpixMkXdrNKfNhWAUto1FmTDk2IH8QOLInMuoez4NtUmJxGQJIVM ffLX1WRMQ2LIUyEURtMs0BMPKnS872vwGmHR5ATu7GOgBwOR3fsa7APvAhZLGvAbrQQwh5ZRglTW1QvT OiDTaUbx7xuxYxkqAYn5UiirZtxDNNRDDrtuCyMMhf CqUjHw8vOJysPnKtRNSpMu6uNoMnFxUkEKT4ODElBP3aSKtwGH3XHZS1XScuJYDaDUCuV3lPWvTjKOCg TjQbeJjnUD1SSoRyS3UxelZgwXEqBsApIXRMGq8+SAlrnnOgFhdRFrB3LUCwo9SaYBv7UR3NERMaZYvb CA2TQJKksV5pMUvzHJ1MGpBvASUjHUCVWyYzY89kkU MzDCt9W1TiYhOyBBTsAtqlNFNyMZpiMpRnWEIbEtVdWMtxQK4+ID4+OBotCW5BBNkpcxMqKUUkKm3QXJ PoHBAuWJ9kVZShMPFxP8R9yGncLCTWNsIzN4lxitnfKI1nOVNxG109kXzyspYuMMPwXZIiOh7ASUFoZK O7BDHedYNeBsOhETGPQQleHG6MkRKoPSQ3uV6lVOez EITqXQRxH8wRVqDepDxrSR67wWpnyzVyaPMpLWi+Ov5PIQ0on5UtYWa0gpMnXSslHKZ4QMywQBLzYAQg WWLqWXR6YAZ1QONYWtCzUBSpOUFiUHybVCFwZFThvs3SWLKkQHKzRmK0JeZuSCYnHVTfDOlhRDInGYE1 VyN2MZIfMMNoGH9AXyLtEWVaBZOgWVatXNGgQCAitj 9PPXTmQOKyZpOyZdBxGVJnRTIxTHhzZOWbXKZkBOApWKYqQDIrNO7KYvVxJLWkHFv2SLGpKEQzDGQvcu 7GVRCjBPAmRtd3TGJbHDYvUYMgQZogPOMcEYViLzK4JRFhAFDdEL7ZTeClDNTwSMQ3MiMfFJZeYUCxfu 6OVFRkAAQnAxyrVhTeOUReRIFtUJjeFGXwIWN0KJXb HJAmLCFzHS1QXnHpCQEvUPa3UsRmFBVjFFEuxe0CVXQnXIVcXGV8XXEtGSPhOMQlMNwxZJBeGZN9EBU8 XQViXIYwGP5CGoXzYXSqBaOoZXYwIZIkADHyfj6DBOTcDHAjHAP6ViPkOXVeMPWeJWnzFRTrGSMxOeE7 BAQeKQMeNC7YHyNrATXhDkR5OFCjIPCfNTQdhq4MBA GwANJyGeMnHKOfBHBqJDBhKNzgKRBoIQWgFgPkHBJzSSSiAM9FCvVdASCtZrA4FJPfXPEbGCDkmb4FNF GdIILuHXWtXFKhONSqFBQnLJajPEDaHME8DAK9GMIpRTAxDE9NHzOlZSOtRvO8JiCvFVIdJSCmds9UMH PzGTNlFFAnOIEfGEWeRFAdZDgvBTFjHLC0ATOzVSXs MOPwHG1PUsCgGIIsWxXmTAHfZZDnPVWkbm1DZMZwZWIqSlA0DxHqWQIsWFTmTZeoCSRdANC0LXfeJVRj AMFsEL8EHnTpSIOzDaW6NUafKKUeTHNpeq9OKRYnCQIaHYA5WYRsIGShCUTxVFidUPAeGWW3YSVhBDZe NULkCJ1RGcUcTSDkPqy5OVNiGALiWQMzbf7FyPLbnZ fzjj2EPXjLUb8EvJcxEYP2EYqeSk7gdKUnPYJsTWYNTr3JsfDxSFKuMLTOWYzgYWMdHKGoPoQ6MQQiCI SzDlAzQCAzBcU0Nih8CPQ5PhLvS4S4ClE2S0YnQJf6DTU8DoC2QCK2YeM1UxxrRmdsADOjEeQdVbb+IF 0gDQo+Qq3Nd0UtboW5kaCxMZeePFnaLG1IIGEYJ0MIKb== ID Date Data Source [id number] 09/13/2020 03:07:00 PM EST [facility] ([facility]) Name Value Range Interpretation Code Description Data Herlinda rce(s) Supporting Document(s) White Blood Count 6.9 10 4.0-10.0 [facility] ([facility]) Hematocrit 42.7 % 36.0-47.0 [facility] ([facility]) Red Blood Count 4.64 10 4.00-5.40 [facility] ([facility]) Hemoglobin 14.2 g/dL 12.0-15.5 [facility] [facility]) Mean Corpuscular HGB Conc 33.3 g/dL 32.0-36.5 MEDE NT ([facility]) Mean Corpuscular Volume 92.0 fl 80.0-96.0 [facility] ([facility]) Red Cell Distribution Width 11.7 % 11.5-14.5 [facility] DENT ([facility]) Mean Corpuscular Hemoglobin 30.6 pg 27.0-33.0 [facility] ([facility]) Platelet Count, Automated 373 10 150-450 MEDE NT ([facility]) Lymph % 9.8 % 24.0-44.0 [facility] Neutrophils % 79.7 % 36.0-66.0 [facility] ([facility]) Baso % 0.6 % 0.0-1.0 [facility] [facility] Milam % 7.9 % 0.0-5.0 [facility] [facility] Eos % 1.7 % 0.0-3.0 [facility] [facility] Immature Granulocyte % 0.3 % 0-3.0 [facility] ([facility]) Lymph # 0.7 10 1.5-5.0 [facility] [facility] Neutrophils # 5.5 10 1.5-8.5 MED[facility] ([facility]) Nucleated Red Blood Cell % 0.0 % 0-0 MED ENT ([facility]) Baso # 0.0 10 0.0-0.2 [facility] [facility] Eos # 0.1 10 0.0-0.5 [facility] [facility] Milam # 0.5 10 0.0-0.8 [facility] ID Date Data Source [id number] 09/13/2020 03:07:00 PM EST MEDENT ([facility]) Name Value Range Interpretation Code Description Data Herlinda rce(s) Supporting Document(s) Blood Urea Nitrogen 14 mg/dL 7-18 [facility] ([facility]) Glucose, Fasting 96 mg/dL 70-100 [facility] ([facility]) Creatinine For GFR 0.61 mg/dL 0.55-1.30 [facility] ([facility]) Sodium Level 138 meq/L 136-145 [facility] ([facility]) Glomerular Filtration Rate Laboratory test result [facility] ([facility]) <content>Units are mL/min/1.73 m2</content>
<content></content>
<content>Chronic Kidney Disease Staging per NKF:</content>
<content></content>
<content>Stage I & II GFR >=60 Normal to Mildly Decreased</content>
<content>Stage III GFR 30- 59 Moderately Decreased</content>
<content>Stage IV GFR 15-29 Severely Decreased</content>
<content>Stage V GFR <15 Very Little GFR Left</content>
<content>ESRD GFR <15 on ELECTRONICS SCALE TESTER</content>
<content></content> Carbon Dioxide Level 29 meq/L 21-32 [facility] ([facility]) Chloride Level 105 meq/L 98-107 [facility] ([facility]) Anion Gap 4 meq/L 8-16 [facility] [facility] Potassium Serum 4.4 meq/L 3.5-5.1 [facility] ([facility]) Ast/Sgot 12 U/L 7-37 [facility] [facility]) Alt/SGPT 23 U/L 12-78 [facility] ([facility]) Calcium Level 9.7 mg/dL 8.8-10.2 [facility] ([facility]) Bilirubin,Total 0.5 mg/dL 0.2-1.0 [facility] ([facility]) Alkaline Phosphatase 125 U/L 45-117 [facility] Total Protein 7.2 GM/DL 6.4-8.2 [facility] ([facility]) Albumin 4.2 GM/DL 3.2-5.2 [facility] ([facility]) Albumin/Globulin Ratio 1.4 1.2-2.2 [facility] ([facility]) ID Date Data Source [id number] 09/13/2020 03:07:00 PM EST MED[facility] ([facility]) Name Value Range Interpretation Code Description Data Herlinda rce(s) Supporting Document(s) Bilirubin,Direct 0.2 mg/dL 0.0-0.2 [facility] ([facility]) ID Date Data Source [id number] 09/13/2020 03:07:00 PM EST [facility] ([facility]) Name Value Range Interpretation Code Description Data Herlinda rce(s) Supporting Document(s) IgA [Mass/volume] in Serum or Plasma 211.0 mg/dL 70-400 [facility] ([facility]) ID Date Data Source [id number] 09/13/2020 03:07:00 PM EST [facility] ([facility]) Name Value Range Interpretation Code Description Data Herlinda rce(s) Supporting Document(s) Hepatitis B Surface Antigen Laboratory test result [facility] Hepatitis C Virus Brandi Index 0.1 INDEX [facility] ([facility]) Negative Not infected with HCV, unless recent infection is suspected or other evidence exists to indicate HCV infection. Hepatitis A Antibody Igm Laboratory test result [facility]) Hepatitis B Core Antibody Igm Laboratory test result [facility]) ID Date Data Source [id number] 09/13/2020 03:07:00 PM EST [facility] ([facility]) Name Value Range Interpretation Code Description Data Herlinda rce(s) Supporting Document(s) Folate [Mass/volume] in Red Blood Cells 10.3 ng/mL [facility]) FOLATE NORMAL RANGE NORMAL GREATER THAN 5.4 NG/ML INDETERMINATE 3.4-5.4 NG/ML DEFICIENT LESS THAN 3.4 NG/ML Cobalamin (Vitamin B12) [Mass/volume] in Serum or Plasma 548 pg/mL 2 47-911 [facility]) VITAMIN B12 NORMAL RANGE NORMAL 247 - 911 PG/ML INDETERMINATE 211 - 246 PG/ML DEFICIENT LESS THAN 211 PG/ML Hepatitis B virus surface Ab [Presence] in Serum by Im mei Laboratory test result [facility] ) Miscellaneous Test Lab Laboratory test result [facility]) See Separate Report Testing performed at reference lab . Report copy to follow on a separate form. 09/23/20 REF LAB#:[id number] Order this test in the future with mneumonic [] . Silverman = [] , CPT CODES = []. Sample was sent to [] . Specimen requirements are [] . Please call the lab with any other questions. HIV 1+2 Ab [Presence] in Serum Laboratory test result [facility]) <content>This assay was performed utiliz ing [...] in Serum or Plasma 23.5 ng/mL 30.0-100.0 [facility] ID Date Data Source [id number] 09/13/2020 03:07:00 PM EST [facility] ([facility]) Name Value Range Interpretation Code Description Data Herlinda rce(s) Supporting Document(s) Methylmalonate [Moles/volume] in Serum or Plasma Laboratory test resu lt [facility] ([facility]) SEE SEPARATE REPORT Antinuclear Antibodies [facility] See Separate Report Testing performed at reference lab. Report copy to follow on a separate form. 09/30/20 REF LAB#:[id number] Herpes Zoster, Varicella IgG Laboratory test result [facility] SEE SEPARATE REPORT Ceruloplasmin [Mass/volume] in Serum or Plasma Laboratory test result [facility] ([facility]) SEE SEPARATE REPORT Copper [Mass/volume] in Serum or Plasma Laboratory test result [facility] ([facility]) SEE SEPARATE REPORT Zinc [Mass/volume] in Serum or Plasma Laboratory test result [facility] See Separate Report Aquaporin 4 receptor IgG Ab [Units/volum e] in Serum or Plasma by Immunofluorescence Laboratory test result [facility] ([facility]) ID Date Data Source [id number] 09/13/2020 03:07:00 PM EST [facility] ([facility]) Name Value Range Interpretation Code Description Data Herlinda rce(s) Supporting Document(s) Interpretation Laboratory test result [facility] ([facility]) SEE SEPARATE REPORT JCV Antibody Laboratory test result [facility] NT ([facility]) SEE SEPARATE REPORT Index Value Laboratory test result MEDEN T ([facility]) SEE SEPARATE REPORT JCV Antibody By Inhibition Laboratory test result [facility] ([facility]) SEE SEPARATE REPORT Interpretation Laboratory test result [facility] SEE SEPARATE REPORT ID Date Data Source [id number] 09/13/2020 03:07:00 PM EST [facility] ([facility] Name Value Range Interpretation Code Description Data Herlinda rce(s) Supporting Document(s) Homocysteine [Moles/volume] in Serum or Plasma Laboratory test result [facility] SEE SEPARATE REPORT Laboratory test finding (navigational concept) Laboratory test result [facility] REFERENCE INTERVAL: Negative No informative autoantibodies were detected in this evaluation. A negative result does not preclude a diagnosis of an inflammatory QA LEAD demyelinating disorder. ADDITIONAL INFORMATIO N This test was developed and its performance characteristics determined by [facility] in a manner consistent with CLIA requirements. This test has not been cleared or approved by the U.S. Food and Drug Administration. ID Date Data Source [id number] 09/22/2020 05:05:00 PM EST [facility] Name Value Range Interpretation Code Description Data [facility](s) Supporting Document(s) 2C9 Genotype [facility] Interpretation [...] individual results of thistest.Mayzent (siponimod) [package insert]. [place], [place]:[employer]; 2019.For more information on interpreting this report, pleasevisit [email or web address] or call Customer Service [phone] between the hours of 6:30am to 5:00pm PTM through Saturday.This assay meets the standards for performanc echaracteristics and all other machined parts quality inspector and assurancerequirements established by CLIA. The results should not beused as the sole criteria for patient management. This testwas developed and its performance characteristicsdetermined by [employer]. It has not been clearedor approved by the FDA. This document contains private andconfidential health information protected by state andfederal law. If you have received this document in error,please call [phone]. The provision of this free testis not contingent on any requirement to utilize or purchasethis test, or any other product or service, in the future.Additionally, provision of this free test by [employer] is a form of patient supportwith no [...] PDF . [facility] ID Date Data Source [id number] 09/19/2020 07:05:00 PM EST [facility] Name Value Range Interpretation Code Description Data Herlinda rce(s) Supporting Document(s) Monogram In[facility]ent [facility] Please Fax back to [phone]. [facility] require laboratoriesto have documentation that the [...] of the sample when testing is complete. [facility] did not receive any documentation of [...] signature Date Printed name Fax back to [facility] at [phone] [facility] ID Date Data Source [id number] 08/31/2020 05:58:50 PM [facility] Name Value Range Interpretation Code Description Data Herlinda rce(s) Supporting Document(s) Progress Note [facility] [id number] [facility] [file] [id number] ID Date Data Source [id number] 08/15/2020 02:20:00 PM EST [facility] ([facility]) Name Value Range Interpretation Code Description Data Herlinda rce(s) Supporting Document(s) JCV Antibody Laboratory test result [facility]E NT ([facility]) <content>Index interpretive criteria:</c ontent>
<content><0.20 negative</content>
<content>0.20-0.40 indeterminate</content>
<content>>0.40 positive</content>
<content></content> Interpretation Laboratory test result [facility] LE[facility] ([facility]) . Negative: Antibodies to JCV not [...] US Prescribing Information. Index Value 0.14 [facility] ([facility]) Interpretation Laboratory test result [facility]) . Positive: Antibodies to MAYRA virus (JCV) detected indicating the patient has been exposed to JCV at an undetermined time Negative: Antibodies to JCV not detected Performed at: [facility] [address] [place], [place] [id number] Toy Designer: Farooq Askew MD, Phone: [phone] Performed at: RN - [facility] [id number] Toy Designer: Vale Kilpatrick MD, Phone: [phone] JCV Antibody By Inhibition Laboratory test result [facility] ID Date Data Source [id number] 08/15/2020 02:18:00 PM EST [facility] ([facility]) Name Value Range Interpretation Code Description Data Herlinda rce(s) Supporting Document(s) Urea nitrogen [Mass/volume] in Serum or Plasma 16 mg/dL 7-18 [facility] ([facility]) Glucose [Mass/volume] in Serum or Plasma 93 mg/dL 74-99 [facility] ([facility]) 100-125 mg/dL PRE-DIABETES/FASTING >126 mg/dL DIABETES/FASTING Creatinine 0.5 mg/dL 0.6-1.3 [facility] ([facility]) Potassium [Moles/volume] in Serum or Plasma 4.6 meq/L 3.5-5.1 [facility] ([facility]) Sodium [Moles/volume] in Serum or Plasma 139 meq/L 136-145 [facility] ([facility]) Chloride [Moles/volume] in Serum or Plasma 102 meq/L 98-107 [facility] ([facility]) Carbon dioxide, total [Moles/volume] in Serum or Plasma 29 meq/L 21 -32 [facility] ([facility]) Calcium [Mass/volume] in Serum or Plasma 9.5 mg/dL 8.5-10.1 [facility] ([facility]) Total Bilirubin 0.5 mg/dL 0.2-1.0 [facility] ([facility]) Alkaline phosphatase isoenzyme [Units/volume] in Serum or Pl asma 92 mg/dL 46-116 [facility] ([facility]) Albumin [Mass/volume] in Serum or Plasma 4.0 g/dL 3.4-5.0 [facility] ([facility]) Alanine aminotransferase [Enzymatic activity/volume] in Seru m or Plasma 20 U/L 12-78 [facility] ([facility]) Aspartate aminotransferase [Enzymatic activity/volume] in Serum or Plasma 14 U/L 15-37 [facility] ([facility] ) Glomerular filtration rate/1.73 sq M pre dicted among non-blacks [Volume Rate/Area] in Serum or Plasma by Creatinine-based formula (MDRD) Laboratory test result [facility] Proteinase 3 Ab [Units/volume] in Serum 7.0 g/dL 6.4-8.2 [facility] ([facility]) A/G Ratio 1.33 CALC 1.00-1.90 [facility]) Glomerular filtration rate/1.73 sq M pre dicted among blacks [Volume Rate/Area] in Serum or Plasma by Creatinine-based formula (MDRD) Laboratory test result [facility] ([facility]) <content>CHRONIC KIDNEY DISEASE STAGING PER NKF</content>
<content></content>
<content>STAGE I & II GFR >= 60 NORMAL TO MILDLY DECREASED</content>
<content>STAGE III GFR 30-59 MODERATELY DECREASED</content>
<content>STAGE IV GFR 15-29 SEVERELY DECREASED</content>
<content>STAGE V GFR <15 VERY LITTLE GFR LEFT</content>
<content>ESRD GFR <15 ON ELECTRONICS SCALE TESTER</content>
<content></content> ID Date Data Source [id number] 08/15/2020 02:18:00 PM EST [facility] ([facility]) Name Value Range Interpretation Code Description Data Herlinda rce(s) Supporting Document(s) Leukocytes [#/volume] in Blood by Automated count 6.8 x10*3/UL 4.1-10 .9 [facility] ([facility]) Erythrocytes [#/volume] in Blood by Automated count 4.55 x10*6/UL 4.2 0-6.30 [facility] ([facility]) Hemoglobin [Mass/volume] in Blood 14.4 g/dL 12.0-18.0 [facility]) Hematocrit [Volume Fraction] of Blood by Automated count 41.2 % 3 7.0-51.0 [facility] ([facility]) MCH 31.7 pg 26.0-32.0 [facility] [facility] MCHC 35.0 g/dL 31.0-38.0 [facility] ([place] [facility]) MCV 90.4 fL 80.0-97.0 [facility] ([place] [facility]) Platelets [#/volume] in Blood by Automated count 340 x10*3/UL 140-440 [facility] ([facility]) Erythrocyte distribution width [Ratio] by Automated count 12.4 % 11.6-13.7 [facility] ([facility]) Lymph % 10.1 % 10.0-58.5 [facility] ([place] [facility] MPV 7.8 FL 7.8-11.0 [facility] [facility]) Neut % 87.3 % 37.0-92.0 [facility]) Mid % 2.6 % 1.7-9.3 [facility]) Lymph # 0.6 x10*3/UL 0.6-4.1 [facility] ([facility]) Neut # 5.9 x10*3/UL 2.0-7.8 [facility] ([facility]) Mid # 0.3 x10*3/UL 0.1-0.6 [facility] ([facility]) ID Date Data Source [id number] 07/27/2020 01:28:00 PM EST [facility] ([facility]) Name Value Range Interpretation Code Description Data Herlinda rce(s) Supporting Document(s) MAYRA Virus Dna PCR Whole Blood Laboratory test result [facility] ([facility]) No JCV DNA detected This test was developed and its performance characteristics determined by [facility]. It has not been cleared or approved by the Food and Drug Administration. The FDA has determined that such clearance or approval is not necessary. Performed at: [address] [id number] Toy Designer: Grupo Silvestre MD, Phone: [phone] ID Date Data Source [id number] 07/27/2020 01:28:00 PM EST [facility] ([facility]) Name Value Range Interpretation Code Description Data Herlinda rce(s) Supporting Document(s) MAYRA virus DNA [Units/volume] (viral load) in Blood by Probe and target amplification method Laboratory test result [facility] E[facility] ([facility]) ID Date Data Source [id number] 07/27/2020 01:26:00 PM EST [facility] ([facility]) Name Value Range Interpretation Code Description Data Herlinda rce(s) Supporting Document(s) Leukocytes [#/volume] in Blood by Automated count 6.4 x10*3/UL 4.1-10 .9 [facility] ([facility]) Erythrocytes [#/volume] in Blood by Automated count 4.55 x10*6/UL 4.2 0-6.30 [facility] ([facility]) Hemoglobin [Mass/volume] in Blood 14.5 g/dL 12.0-18.0 [facility] ([facility]) MCH 31.8 pg 26.0-32.0 [facility] [facility] Hematocrit [Volume Fraction] of Blood by Automated count 40.5 % 3 7.0-51.0 [facility] ([facility]) MCV 89.0 fL 80.0-97.0 [facility] [facility] MCHC 35.8 g/dL 31.0-38.0 [facility] [facility] Platelets [#/volume] in Blood by Automated count 335 x10*3/UL 140-440 [facility] ([facility]) Erythrocyte distribution width [Ratio] by Automated count 12.0 % 11.6-13.7 [facility] ([facility]) MPV 7.9 FL 7.8-11.0 [facility] [facility] Lymph % 7.1 % 10.0-58.5 [facility] [facility] Neut % 85.5 % 37.0-92.0 [facility] [facility] Lymph # 0.4 x10*3/UL 0.6-4.1 [facility] ([facility]) Mid % 7.4 % 1.7-9.3 [facility] [facility] Neut # 5.5 x10*3/UL 2.0-7.8 [facility] ([facility]) Mid # 0.5 x10*3/UL 0.1-0.6 [facility] ([facility]) ID Date Data Source [id number] 06/30/2020 01:21:00 PM EDT [facility] ([facility] ) Name Value Range Interpretation Code Description Data Herlinda rce(s) Supporting Document(s) MAYRA Virus Dna PCR Whole Blood Laboratory test result [facility] ([facility] ) No JCV DNA detected This test was developed and its performance characteristics determined by [facility]. It has not been cleared or approved by the Food and Drug Administration. The FDA has determined that such clearance or approval is not necessary. Performed at: [address] [id number] Toy Designer: Grupo Silvestre MD, Phone: [phone] ID Date Data Source [id number] 06/30/2020 01:21:00 PM EDT [facility]) Name Value Range Interpretation Code Description Data Herlinda rce(s) Supporting Document(s) MAYRA virus DNA [Units/volume] (viral load) in Blood by Probe and target amplification method Laboratory test result [facility] ([facility]) ID Date Data Source [id number] 06/30/2020 01:21:00 PM EDT [facility] ([facility]) Name Value Range Interpretation Code Description Data Herlinda rce(s) Supporting Document(s) MAYRA Virus Dna PCR Whole Blood Laboratory test result [facility] ([facility]) No JCV DNA detected This test was developed and its performance characteristics determined by [facility]. It has not been cleared or approved by the Food and Drug Administration. The FDA has determined that such clearance or approval is not necessary. Performed at: [address] [id number] Toy Designer: Grupo Silvestre MD, Phone: [phone] ID Date Data Source [id number] 06/30/2020 01:19:00 PM EDT [facility]) Name Value Range Interpretation Code Description Data Herlinda rce(s) Supporting Document(s) Glucose [Mass/volume] in Serum or Plasma 83 mg/dL 74-99 [facility] ([facility]) 100-125 mg/dL PRE-DIABETES/FASTING >126 mg/dL DIABETES/FASTING Urea nitrogen [Mass/volume] in Serum or Plasma 22 mg/dL 7-18 [facility] ([facility]) Creatinine 0.6 mg/dL 0.6-1.3 [facility] [facility] Sodium [Moles/volume] in Serum or Plasma 140 meq/L 136-145 [facility] ([facility]) Chloride [Moles/volume] in Serum or Plasma 105 meq/L 98-107 [facility] ([facility]) Potassium [Moles/volume] in Serum or Plasma 4.8 meq/L 3.5-5.1 [facility] ([facility]) Calcium [Mass/volume] in Serum or Plasma 9.1 mg/dL 8.5-10.1 [facility] ([facility]) Alkaline phosphatase isoenzyme [Units/volume] in Serum or Pl asma 94 mg/dL 46-116 [facility] ([facility]) Carbon dioxide, total [Moles/volume] in Serum or Plasma 30 meq/L 21 -32 [facility] ([facility]) Total Bilirubin 0.5 mg/dL 0.2-1.0 [facility] ([facility]) Aspartate aminotransferase [Enzymatic activity/volume] in Serum or Plasma 10 U/L 15-37 [facility] ([facility] ) Proteinase 3 Ab [Units/volume] in Serum 6.6 g/dL 6.4-8.2 [facility] ([facility]) Albumin [Mass/volume] in Serum or Plasma 3.8 g/dL 3.4-5.0 [facility] ([facility]) Alanine aminotransferase [Enzymatic activity/volume] in Seru m or Plasma 19 U/L 12-78 [facility] ([facility]) A/G Ratio 1.36 CALC 1.00-1.90 [facility] ([place] [facility]) Glomerular filtration rate/1.73 sq M pre dicted among non-blacks [Volume Rate/Area] in Serum or Plasma by Creatinine-based formula (MDRD) Laboratory test result [facility] ([facility] ) Glomerular filtration rate/1.73 sq M pre dicted among blacks [Volume Rate/Area] in Serum or Plasma by Creatinine-based formula (MDRD) Laboratory test result [facility] <content>CHRONIC KIDNEY DISEASE STAGING PER NKF</content>
<content></content>
<content>STAGE I & II GFR >= 60 NORMAL TO MILDLY DECREASED</content>
<content>STAGE III GFR 30-59 MODERATELY DECREASED</content>
<content>STAGE IV GFR 15-29 SEVERELY DECREASED</content>
<content>STAGE V GFR <15 VERY LITTLE GFR LEFT</content>
<content>ESRD GFR <15 ON ELECTRONICS SCALE TESTER</content>
<content></content> ID Date Data Source [id number] 06/30/2020 01:19:00 PM EDT [facility] ([facility]) Name Value Range Interpretation Code Description Data Herlinda rce(s) Supporting Document(s) Erythrocytes [#/volume] in Blood by Automated count 4.47 x10*6/UL 4.2 0-6.30 [facility] ([facility]) Leukocytes [#/volume] in Blood by Automated count 6.0 x10*3/UL 4.1-10 .9 [facility] ([facility]) NOTE: RESULT VERIFIED. Hematocrit [Volume Fraction] of Blood by Automated count 39.8 % 3 7.0-51.0 [facility] ([facility]) Hemoglobin [Mass/volume] in Blood 14.2 g/dL 12.0-18.0 [facility] ([facility]) MCV 89.0 fL 80.0-97.0 [facility] [facility] MCH 31.7 pg 26.0-32.0 [facility] [facility] [facility] MCHC 35.7 g/dL 31.0-38.0 [facility] Erythrocyte distribution width [Ratio] by Automated count 11.9 % 11.6-13.7 [facility] ([facility]) MPV 7.7 FL 7.8-11.0 [facility] ([facility]) Platelets [#/volume] in Blood by Automated count 305 x10*3/UL 140-440 [facility] ([facility]) Mid % 2.4 % 1.7-9.3 [facility] Lymph % 8.1 % 10.0-58.5 [facility] Neut % 89.5 % 37.0-92.0 [facility] Mid # 0.2 x10*3/UL 0.1-0.6 [facility] ([facility]) Lymph # 0.4 x10*3/UL 0.6-4.1 [facility] ([facility]) Neut # 5.4 x10*3/UL 2.0-7.8 [facility] ([facility]) ID Date Data Source [id number] 03/24/2020 02:19:00 PM EDT [facility] ([facility]) Name Value Range Interpretation Code Description Data Herlinda rce(s) Supporting Document(s) Neutrophils 72 % 28-66 [facility] ([facility]) Eosinophils 8 % 0-3 [facility] ([facility]) Lymphocytes 8 % 16-44 [facility] ([facility]) Bands 1 % [facility] Basophils 4 % 0-1 [facility] Atypical Lymph 7 % 0-5 [facility] ([facility]) RBC Morphology Laboratory test result ME DENT ([facility]) Platelet Estimate Laboratory test result [facility] ([facility]) ID Date Data Source [id number] 03/24/2020 02:19:00 PM EDT [facility] ([facility]) Name Value Range Interpretation Code Description Data Herlinda rce(s) Supporting Document(s) Cholesterol [Mass/volume] in Serum or Plasma 201 mg/dL 131-200 [facility] ([facility]) Cholesterol in HDL [Mass/volume] in Serum or Plasma 66 mg/dL 35-60 [facility] ([facility]) Cholesterol in LDL [Mass/volume] in Serum or Plasma by calcu lation 125 CALC 50-159 [facility] ([facility]) Triglyceride [Mass/volume] in Serum or Plasma 50 mg/dL 30-150 [facility] ([facility]) ID Date Data Source [id number] 03/24/2020 02:19:00 PM EDT [facility] ([facility]) Name Value Range Interpretation Code Description Data Herlinda rce(s) Supporting Document(s) Urea nitrogen [Mass/volume] in Serum or Plasma 10 mg/dL 7-18 [facility] ([facility]) Glucose [Mass/volume] in Serum or Plasma 89 mg/dL 74-99 [facility] ([facility]) 100-125 mg/dL PRE-DIABETES/FASTING >126 mg/dL DIABETES/FASTING Creatinine 0.5 mg/dL 0.6-1.3 [facility] Potassium [Moles/volume] in Serum or Plasma 4.4 meq/L 3.5-5.1 [facility] ([facility]) Sodium [Moles/volume] in Serum or Plasma 138 meq/L 136-145 [facility] ([facility]) Carbon dioxide, total [Moles/volume] in Serum or Plasma 32 meq/L 21 -32 [facility] ([facility]) Chloride [Moles/volume] in Serum or Plasma 101 meq/L 98-107 [facility] ([facility]) Calcium [Mass/volume] in Serum or Plasma 9.0 mg/dL 8.5-10.1 [facility] ([facility]) Alkaline phosphatase isoenzyme [Units/volume] in Serum or Pl asma 90 mg/dL 46-116 [facility] ([facility]) Total Bilirubin 0.5 mg/dL 0.2-1.0 [facility] ([facility]) Aspartate aminotransferase [Enzymatic activity/volume] in Serum or Plasma 14 U/L 15-37 [facility] ([facility] ) Alanine aminotransferase [Enzymatic activity/volume] in Seru m or Plasma 24 U/L 12-78 [facility] ([facility]) Albumin [Mass/volume] in Serum or Plasma 4.0 g/dL 3.4-5.0 [facility] ([facility]) Proteinase 3 Ab [Units/volume] in Serum 7.1 g/dL 6.4-8.2 [facility] ([facility]) A/G Ratio 1.29 CALC 1.00-1.90 [facility] Glomerular filtration rate/1.73 sq M pre dicted among non-blacks [Volume Rate/Area] in Serum or Plasma by Creatinine-based formula (MDRD) Laboratory test result [facility] ([facility] ) Glomerular filtration rate/1.73 sq M pre dicted among blacks [Volume Rate/Area] in Serum or Plasma by Creatinine-based formula (MDRD) Laboratory test result [facility] <content>CHRONIC KIDNEY DISEASE STAGING PER NKF</content>
<content></content>
<content>STAGE I & II GFR >= 60 NORMAL TO MILDLY DECREASED</content>
<content>STAGE III GFR 30-59 MODERATELY DECREASED</content>
<content>STAGE IV GFR 15-29 SEVERELY DECREASED</content>
<content>STAGE V GFR <15 VERY LITTLE GFR LEFT</content>
<content>ESRD GFR <15 ON ELECTRONICS SCALE TESTER</content>
<content></content> ID Date Data Source [id number] 03/24/2020 02:19:00 PM EDT [facility] ([facility]) Name Value Range Interpretation Code Description Data Herlinda rce(s) Supporting Document(s) Erythrocytes [#/volume] in Blood by Automated count 4.71 x10*6/UL 4.2 0-6.30 [facility] ([facility]) Hemoglobin [Mass/volume] in Blood 14.6 g/dL 12.0-18.0 [facility] ([facility]) Leukocytes [#/volume] in Blood by Automated count 5.4 x10*3/UL 4.1-10 .9 [facility] ([facility]) NOTE: MANUAL DIFFERENTIAL SENT TO [facility] FOR VERIFICATION. Hematocrit [Volume Fraction] of Blood by Automated count 42.6 % 3 7.0-51.0 [facility] ([facility]) MCH 30.9 pg 26.0-32.0 [facility] ([facility]) MCV 90.5 fL 80.0-97.0 [facility] ([facility]) Erythrocyte distribution width [Ratio] by Automated count 12.3 % 11.6-13.7 [facility] ([facility]) MCHC 34.2 g/dL 31.0-38.0 [facility] ([facility]) MPV 7.8 FL 7.8-11.0 [facility] ([facility]) Platelets [#/volume] in Blood by Automated count 322 x10*3/UL 140-440 [facility] ([facility]) Lymph % 5.6 % 10.0-58.5 [facility] Mid % 5.8 % 1.7-9.3 [facility] Neut % 88.6 % 37.0-92.0 [facility] Lymph # 0.3 x10*3/UL 0.6-4.1 [facility] ([facility]) Mid # 0.3 x10*3/UL 0.1-0.6 [facility] ([facility]) Neut # 4.8 x10*3/UL 2.0-7.8 [facility] ([facility]) Procedure Social History Code Duration Value Status Description Data Source(s ) Alcohol intake 10/26/2020 12:00:00 AM EST Current non-d marie of alcohol (finding) completed Current non-drinker of alcohol (finding) [facility] Tobacco use and exposure 10/26/2020 12:00:00 AM EST Never used co mpleted Never used [facility] Smoking 10/26/2020 12:00:00 AM EST Never smoker completed Never s prkhanh [facility] Alcohol intake 08/31/2020 12:00:00 AM EST Current non-d marie of alcohol (finding) completed Current non-drinker of alcohol (finding) [facility] Smoking 04/14/2020 12:00:00 AM EDT Never Smoker completed Never S [facility] eCW1 ([facility]) Vital Signs ID Date Data Source UNK Name Value Range Interpretation Code Description Data Source(s) Oxygen saturation in Arterial blood by Pulse oximetry 97 % 97 % [facility] RM Air Body height 64.50 [in_i] 64.50 [in_i] [facility] 5'4.50" Heart rate 82 /min 82 /min [facility] ([facility]) Diastolic blood pressure 78 mm[Hg] 78 mm[Hg] [facility] ([facility]) Systolic blood pressure 122 mm[Hg] 122 mm[Hg] M [facility] ([facility]) Body mass index (BMI) [Ratio] 23.7 kg/m2 23.7 k g/m2 [facility] ([facility]) Oxygen saturation in Arterial blood by Pulse oximetry 98 % 98 % [facility] RM Air Body weight 140.00 [lb_av] 140.00 [lb_av] [facility] T ([facility]) Body height 64.50 [in_i] 64.50 [in_i] [facility] 5'4.50" Heart rate 86 /min 86 /min [facility] ([facility]) Diastolic blood pressure 60 mm[Hg] 60 mm[Hg] [facility] ([facility]) Systolic blood pressure 112 mm[Hg] 112 mm[Hg] M [facility] ([facility]) Body mass index (BMI) [Ratio] 24.0 kg/m2 24.0 k g/m2 [facility] ([facility]) Body weight 142.00 [lb_av] 142.00 [lb_av] [facility] T ([facility]) Body height 64.50 [in_i] 64.50 [in_i] [facility] ([facility] 5'4.50" Heart rate 86 /min 86 /min [facility] ([facility]) Diastolic blood pressure 78 mm[Hg] 78 mm[Hg] [facility] ([facility]) Systolic blood pressure 120 mm[Hg] 120 mm[Hg] M [facility] ([facility]) Oxygen saturation in Arterial blood by Pulse oximetry 99 % 99 % [facility] ([facility]) Air Body height 64.50 [in_i] 64.50 [in_i] [facility] ([facility]) 5'4.50" Heart rate 90 /min 90 /min [facility] ([facility]) Diastolic blood pressure 60 mm[Hg] 60 mm[Hg] [facility] ([facility]) Systolic blood pressure 102 mm[Hg] 102 mm[Hg] M [facility] ([facility]) Diastolic blood pressure 76 mm[Hg] 76 mm[Hg] eCW1 ([facility]) Systolic blood pressure 128 mm[Hg] 128 mm[Hg] e CW1 ([facility]) Body mass index (BMI) [Ratio] 23.32 kg/m2 23.32 kg/m2 W1 ([facility]) Body height [in_i] W1 ([facility]) Body weight 138 [lb_av] 138 [lb_av] eCW1 ([facility]) Oxygen saturation in Arterial blood by Pulse oximetry 96 % 96 % [facility] ([facility]) RM Air Body height 64.50 [in_i] 64.50 [in_i] [facility] ([facility]) 5'4.50" Heart rate 85 /min 85 /min [facility] ([facility]) Diastolic blood pressure 60 mm[Hg] 60 mm[Hg] [facility] ([facility]) Systolic blood pressure 110 mm[Hg] 110 mm[Hg] M [facility] ([facility]) Body mass index (BMI) [Ratio] 23.7 kg/m2 23.7 k g/m2 [facility] ([facility]) Body weight 140.50 [lb_av] 140.50 [lb_av] [facility] T ([facility]) Body height 64.50 [in_i] 64.50 [in_i] [facility] ([facility]) 5'4.50" Diastolic blood pressure 60 mm[Hg] 60 mm[Hg] [facility]) Systolic blood pressure 100 mm[Hg] 100 mm[Hg] [facility] ([facility]) ID Date Data Source [id number] 11/07/2020 10:52:22 PM [facility] Name Value Range Interpretation Code Description Data Source(s) TRANSFER FROM [facility] ID Date Data Source [id number] 10/26/2020 02:49:[address] [facility] Value Range Interpretation Code Description Data Source(s) WEIGHT RECORDED 140 lb 140 lb [facility] ID Date Data Source [id number] 09/01/2020 10:27:[address] [facility] Value Range Interpretation Code Description Data Source(s) WEIGHT RECORDED 140 lb 140 lb [facility] Patient Treatment Plan of Care Planned Activity Planned Date Details Description Data Source (s) methylPREDNISolone Sodium Succ 1000 MG I njection Solution Reconstituted (SOLU-MEDROL) 10/26/2020 12:00:00 AM [facility] gabapentin 300 MG Oral Capsule 08/20/2020 12:00:00 AM [facility] Estradiol 0.1 MG/ML Vaginal Cream 04/14/2020 12:00:00 AM EDT eCW1 ([facility])
[2020-11-08] MEDS: REMEDY PHYTOPLEX Z-GUARD PASTE 113GM TUBE (FROM STOREROOM PRODUCT) TOP SCH ×2 (16:00→20:47)
[2020-11-08] MEDS: ACETAMINOPHEN TAB 650MG DOSE (2X325MG) PO PRN (16:02)
[2020-11-08] MEDS: BACLOFEN 10 MG TAB PO SCH ×2 (16:02→20:47)
[2020-11-08] MEDS: GABAPENTIN 300 MG CAP PO SCH ×2 (16:03→20:47)
[2020-11-08 20:00] VITALS: BP 112/59
[2020-11-08] MEDS: DULoxetine 30 MG CAP (CYMBALTA) PO SCH (20:47)
[2020-11-09 05:36] VITALS: BP 129/69
[2020-11-09 07:07] LABS: BASO % 0.3 % (0.0-1.0); EOS # 0.3 10^3/uL (0.0-0.5); EOS % 4.2 % (0.0-3.0); HEMATOCRIT 41.4 % (36.0-47.0); HEMOGLOBIN 13.9 g/dl (12.0-15.5); LYMPH # 0.7 10^3/uL (1.5-5.0); LYMPH % 11.6 % (24.0-44.0); MEAN CORPUSCULAR HEMOGLOBIN 31.2 pg (27.0-33.0); MEAN CORPUSCULAR HGB CONC 33.6 g/dl (32.0-36.5); MONO # 0.8 10^3/uL (0.0-0.8); MONO % 12.9 % (2.0-8.0); NEUTROPHILS # 4.3 10^3/uL (1.5-8.5); NEUTROPHILS % 69.9 % (36.0-66.0); PLATELET COUNT, AUTOMATED 319 10^3/uL (150-450); RED BLOOD COUNT 4.45 10^6/uL (4.00-5.40); WHITE BLOOD COUNT 6.1 10^3/uL (4.0-10.0)
[2020-11-09 07:20] LABS: ALBUMIN 3.2 GM/DL (3.2-5.2); ALT/SGPT 31 U/L (12-78); BILIRUBIN,TOTAL 0.6 MG/DL (0.2-1.0); BLOOD UREA NITROGEN 15 MG/DL (7-18); CALCIUM LEVEL 8.5 MG/DL (8.8-10.2); CARBON DIOXIDE LEVEL 27 MEQ/L (21-32); CHLORIDE LEVEL 105 MEQ/L (98-107); CREATININE FOR GFR 0.59 MG/DL (0.55-1.30); GLOMERULAR FILTRATION RATE > 60.0 (>45); GLUCOSE, FASTING 100 MG/DL (70-100); POTASSIUM SERUM 4.4 MEQ/L (3.5-5.1); SODIUM LEVEL 139 MEQ/L (136-145); TOTAL PROTEIN 5.7 GM/DL (6.4-8.2)
[2020-11-09] MEDS: ENOXAPARIN 40MG/0.4ML SYRINGE (J1650 PER 10MG) SC SCH (09:50)
[2020-11-09] MEDS: GABAPENTIN 300 MG CAP PO SCH ×3 (09:50→22:18)
[2020-11-09] MEDS: BACLOFEN 10 MG TAB PO SCH ×3 (09:50→22:18)
[2020-11-09] MEDS: PANTOPRAZOLE 40MG TAB (PROTONIX) PO SCH (09:51)
[2020-11-09] MEDS: REMEDY PHYTOPLEX Z-GUARD PASTE 113GM TUBE (FROM STOREROOM PRODUCT) TOP SCH ×3 (09:51→22:19)
[2020-11-09] MEDS: ACETAMINOPHEN TAB 650MG DOSE (2X325MG) PO PRN ×3 (09:52→23:55)
--- NOTE | 2020-11-09 12:47 | HPEPDOC ---
Cotton Picker Note DATE OF ADMISSION: 11-08-20 DATE OF SERVICE: 11-09-20 TIME OF ADMISSION: Please refer to physician's admission order. SOURCE OF ADMISSION INFORMATION: [facility] record and patient CHIEF COMPLAINT: MS exacerbation HISTORY OF PRESENT ILLNESS: 60F pmh MS with bilat UE weakness and right LE weakness, neurogenic bladder, depression, seasonal allergies, presented to [facility] ED on 11-08-20 following an MS exacerbation which was treated at [facility] with persistent leg weakness and tightness and worsening mobility at home. She fell at home and sustained a laceration to the left side of her face. Neurology from [facility] ultimately decided patient should not receive any more high dose steroids and that her weakness would improve instead with intensive therapy. She was evaluated by therapy and deemed mediaclly appropriate for discharge to ARU. REVIEW OF SYSTEMS: The following is a completed review of systems and has been reviewed. Review of systems otherwise unremarkable. PAIN: Patient self reports no pain EYES: No recent vision changes EARS, NOSE, & THROAT: No throat pain, or dysphagia, or rhinorrhea CARDIOVASCULAR: Denies chest pain or palpitations PULMONARY: Denies shortness of breath GASTROINTESTINAL: Denies constipation/diarrhea GENITOURINARY: denies dysuria MUSCULOSKELETAL: generalized weakness NEUROLOGICAL: left LE paresis HEMATOLOGICAL: denies easy bruising SKIN: denies rash PSYCHIATRIC: Unremarkable All other review of systems found to be negative. PAST MEDICAL HISTORY: as per HPI PAST SURGICAL HISTORY: , hysterectomy, molar tooth extraction ALLERGIES: Please see below. MEDICATIONS: Please see below. FAMILY HISTORY: DM, HTN, Cancer SOCIAL HISTORY: No smoking/etoh/illicit drugs DIET: low sodium PHYSICAL EXAMINATION: VITAL SIGNS: Please see below. GENERAL: Pleasant and cooperative. No acute distress. HEENT: PERRL. Extraocular movements intact. Clear conjunctiva CARDIOVASCULAR: Regular rate and rhythm. No murmurs, rubs, or gallops LUNGS: Clear to auscultation bilaterally. No wheezes. No rhonchi ABDOMEN: Soft, nontender, nondistended. Positive bowel sounds. Normal active bowel sounds NEUROLOGICAL: Alert and oriented times three. Cranial nerves II through XII grossly intact. Sensation grossly intact] EXTREMITIES: 4+\5 strength bilateral elboe flexors/extensors/wrist extension 3/5 finger abduction and DIP flexion 4\5 strength right lower extremity. 2/5 strength in left lower extremity. SKIN: intact LABORATORY DATA: Please see below. IMAGING:Imaging documentation personally reviewed by record FUNCTIONAL STATUS: Premorbid: Modified Independent with all activities of daily life as well as mobility On Admission: min assist for bed mobility, functional transfers, ambulation, dressing GOALS: Mod-I for bed mobility, functional transfers, ambulation, dressing, toileting ASSESSMENT:60-year-old F with past medical history of MS who presents status post exacerbation PLAN: 1. Rehab- PT/oT advance mobility and ADLs, strengthen/stretch/maintain ROM all 4 limbs 2. Neuro- hx of MS with recent exacerbation s/p high dose steroid treatment- c/u with intensive therapy, monitor for infection 3. Cardiac- no known cardiac hx, monitor BPs 4. resp- encourage incentive spirometry, monitor for infection 5. - monitor PVrs 6. DVT ppx- lovenox and teds 7. Pain- baclofen and gabapentin for spasms and neuropathy 8. GI ppx protonix 9. Psych- depression, c/u cymbalta 10. Dipo: tbd POST ADMISSION PHYSICIAN EVALUATION: Medical and functional status: Description of medical status, medical assessment: As above. Rehabilitation diagnosis and current and prior cold morbid medical conditions as above. Risk of complications and plans to mitigate them as above. Description of functional status current status is as above. Prior status as above. Status compared to preadmission: There are no clinically significant differences between the patient's current status and the information described on the preadmission screening document. Treatment plan anticipated: Treatment plan is as described above. Required disciplines including physical therapy, occupational therapy, others as noted above. Intensity of services: 3 hours a day, 6 days a week. Special considerations: There are no specific special or safety considerations that would likely preclude immediate implementation of an intensive rehabilitation program or subsequently influence the plan of care. ATTESTATION: Considering all the information above, it is my best judgment that this patient requires intensive rehabilitation therapy as described above and an inpatient hospital environment due to the complexity of nursing, medical, and rehabilitation needs required by the patient. Furthermore, this patient can reasonably be expected to participate in an benefit from an inpatient rehabilitation stay with an interdisciplinary team approach to the delivery of rehabilitation care under the direction and supervision of rehabilitation physician. PROGNOSIS: good ESTIMATED LENGTH OF STAY:10-14 days. PROJECTED DISCHARGE DESTINATION: Home with family support and any durable medical equipment required to increase functional safety and mobility TIME SPENT COUNSELING AND COORDINATING INITIAL CARE: Greater than 70 minutes. Vital Signs Vital Sign - Last 24 Hours 11/08/20 11/08/20 11/09/20 14:15 20:00 05:36 Temp 98.8 97.1 97.8 Pulse 106 88 90 Resp 20 18 18 B/P (MAP) 135/59 (84) 112/59 (76) 129/69 (89) Pulse Ox 96 94 94 O2 Delivery Room Air Room Air Room Air Laboratory Data CBC/BMP Laboratory Tests 11/09/20 06:35 Labs 24H Laboratory Tests 2 11/09/20 06:35: Immature Granulocyte % (Auto) 1.1, Neutrophils (%) (Auto) 69.9H, Lymphocytes (%) (Auto) 11.6L, Monocytes (%) (Auto) 12.9H, Eosinophils (%) (Auto) 4.2H, Basophils (%) (Auto) 0.3, Neutrophils # (Auto) 4.3, Lymphocytes # (Auto) 0.7L, Monocytes # (Auto) 0.8, Eosinophils # (Auto) 0.3, Basophils # (Auto) 0.0, Nucleated Red Blood Cells % (auto) 0.0, Anion Gap 7L, Glomerular Filtration Rate > 60.0, Calcium Level 8.5L, Total Bilirubin 0.6, Aspartate Amino Transf (AST/SGOT) 9, Alanine Aminotransferase (ALT/SGPT) 31, Alkaline Phosphatase 82, Total Protein 5.7L, Albumin 3.2, Albumin/Globulin Ratio 1.3 Home Medications Scheduled Baclofen (Baclofen) 10 Mg Tablet, 10 MG PO TID, (Reported) Cholecalciferol (Vitamin D3) (Vitamin D3) 25 Mcg Tablet, 25 MCG PO QHS, (Reported) Duloxetine Hcl (Duloxetine HCl) 60 Mg Capsule.dr, 60 MG PO QHS, (Reported) Gabapentin (Gabapentin) 300 Mg Capsule, 300 MG PO TID, (Reported) Rogers-3 Fatty Acids/Fish Oil (Fish Oil 1,000 mg Capsule) 1,000 Mg Cap, 1,000 MG PO QHS, (Reported) Scheduled PRN Acetaminophen (Tylenol) 325 Mg Tablet, 650 MG PO Q6H PRN for PAIN, (Reported) Ibuprofen/Pseudoephedrine HCl (Advil Cold & Sinus Caplet) 1 Each Tablet, 1 TAB PO DAILY PRN for CONGESTION, (Reported) Tizanidine HCl (Tizanidine HCl) 4 Mg Tablet, 8 MG PO BID PRN for SPASMS, (Reported) Allergies Coded Allergies: Sulfa (Sulfonamide Antibiotics) (Verified Adverse Reaction, Mild, nausea, 08/26/19) A-FIB/CHADSVASC A-FIB History Current/History of A-Fib/PAF?: No Current PO Anticoag Therapy: No RAJESH JOHN MD Nov 09, 2020 12:47
[2020-11-09 14:00] VITALS: BP 124/68
[2020-11-09 22:00] VITALS: BP 132/69
[2020-11-09] MEDS: DULoxetine 30 MG CAP (CYMBALTA) PO SCH (22:18)
[2020-11-10 06:00] VITALS: BP 130/61
--- NOTE | 2020-11-10 07:35 | IPNPDOC ---
PM&R Progress Note DATE OF SERVICE: Nov 10, 2020 Content Designer Progress Note Subjective: Patient reporting she feels well today and is glad to be getting therapy. No new complaints. REVIEW OF SYSTEMS: The following is a completed review of systems and has been reviewed. Review of systems otherwise unremarkable. PAIN: Patient self reports no pain EYES: No recent vision changes EARS, NOSE, & THROAT: No throat pain, or dysphagia, or rhinorrhea CARDIOVASCULAR: Denies chest pain or palpitations PULMONARY: Denies shortness of breath GASTROINTESTINAL: Denies constipation/diarrhea GENITOURINARY: denies dysuria MUSCULOSKELETAL: generalized weakness NEUROLOGICAL: left LE paresis HEMATOLOGICAL: denies easy bruising SKIN: denies rash PSYCHIATRIC: Unremarkable All other review of systems found to be negative. PHYSICAL EXAMINATION: VITAL SIGNS: Please see below. GENERAL: Pleasant and cooperative. No acute distress. HEENT: PERRL. Extraocular movements intact. Clear conjunctiva CARDIOVASCULAR: Regular rate and rhythm. No murmurs, rubs, or gallops LUNGS: Clear to auscultation bilaterally. No wheezes. No rhonchi ABDOMEN: Soft, nontender, nondistended. Positive bowel sounds. Normal active bowel sounds NEUROLOGICAL: Alert and oriented times three. Cranial nerves II through XII grossly intact. Sensation grossly intact] EXTREMITIES: 4+\5 strength bilateral elbow flexors/extensors/wrist extension 3/5 finger abduction and DIP flexion 4\5 strength right lower extremity. 2/5 strength in left lower extremity. SKIN: intact ASSESSMENT:60-year-old F with past medical history of MS who presents status post exacerbation PLAN: 1. Rehab- PT/oT advance mobility and ADLs, strengthen/stretch/maintain ROM all 4 limbs, ambulating with RW 2. Neuro- hx of MS with recent exacerbation s/p high dose steroid treatment- c/u with intensive therapy, monitor for infection 3. Cardiac- no known cardiac hx, monitor BPs 4. resp- encourage incentive spirometry, monitor for infection 5. - monitor PVrs 6. DVT ppx- lovenox and teds 7. Pain- baclofen and gabapentin for spasms and neuropathy 8. GI ppx protonix 9. Psych- depression, c/u cymbalta 10. Dipo: tbd Allergies Coded Allergies: Sulfa (Sulfonamide Antibiotics) (Verified Adverse Reaction, Mild, nausea, 08/26/19) Vital Signs Vital Signs Date Time Temp Pulse Resp B/P (MAP) Pulse Ox O2 Delivery O2 Flow Rate FiO2 11/10/20 06:00 97.4 84 19 130/61 (84) 95 Room Air Current Medications Current Medications Current Medications Medications (Trade) Dose Ordered Sig/Sharee Route PRN Reason Start Time Stop Time Status Last Admin Dose Admin Acetaminophen (Tylenol Tab) 650 mg Q4HP PRN PO fever/MILD PAIN (PS 1-4) 11/08/20 15:00 11/09/20 23:55 Baclofen (Lioresal) 10 mg TID PO 11/08/20 16:00 11/09/20 22:18 Duloxetine HCl (Cymbalta) 60 mg QHS PO 11/08/20 21:00 11/09/20 22:18 Enoxaparin Sodium (Lovenox) 40 mg DAILY SC 11/09/20 09:00 11/09/20 09:50 Gabapentin (Neurontin) 300 mg TID PO 11/08/20 16:00 11/09/20 22:18 Pantoprazole Sodium (Protonix) 40 mg DAILY PO 11/09/20 09:00 11/09/20 09:51 Tizanidine HCl (Zanaflex) 2 mg Q6HP PRN PO SPASMS 11/08/20 15:00 RAJESH JOHN MD Nov 10, 2020 07:35
--- NOTE | 2020-11-10 08:04 | CR ---
CONSULTATION DATE: 11/09/2020 HISTORY OF PRESENT ILLNESS: I saw Verónica Chi yesterday in consultation on ARU but the report has not been dictated until today. She was admitted with exacerbation of multiple sclerosis, unresponsive to high dose steroids at [facility]. She was transferred to ARU for further treatment. PAST MEDICAL HISTORY: Multiple sclerosis, neurogenic bladder, history of depression, history of seasonal allergies. PAST MEDICAL HISTORY/SOCIAL HISTORY/FAMILY HISTORY: All in the history and physical from two days ago. PHYSICAL EXAMINATION: VITAL SIGNS: As listed. GENERAL: She is lying in bed alert and conversant. HEENT: Unremarkable. LUNGS: Clear. HEART: Regular rate and rhythm. ABDOMEN: Soft, nontender. EXTREMITIES: No peripheral edema. Extremities were spastic. Grade 4/5 strength in both legs. IMPRESSION: 1. Multiple sclerosis. PLAN: She is unresponsive to high dose steroids. Her neurologist is at [facility]. The Hospitalist Service is available if there any medical issues that develop during her ARU stay.
[2020-11-10] MEDS: GABAPENTIN 300 MG CAP PO SCH ×3 (10:09→20:31)
[2020-11-10] MEDS: PANTOPRAZOLE 40MG TAB (PROTONIX) PO SCH (10:09)
[2020-11-10] MEDS: ACETAMINOPHEN TAB 650MG DOSE (2X325MG) PO PRN ×3 (10:09→20:01)
[2020-11-10] MEDS: BACLOFEN 10 MG TAB PO SCH ×3 (10:10→20:32)
[2020-11-10] MEDS: ENOXAPARIN 40MG/0.4ML SYRINGE (J1650 PER 10MG) SC SCH (10:10)
[2020-11-10] MEDS: REMEDY PHYTOPLEX Z-GUARD PASTE 113GM TUBE (FROM STOREROOM PRODUCT) TOP SCH ×3 (10:13→20:33)
[2020-11-10 14:00] VITALS: BP 145/55
[2020-11-10 20:00] VITALS: BP 154/67
[2020-11-10] MEDS: DULoxetine 30 MG CAP (CYMBALTA) PO SCH (20:31)
[2020-11-11 05:34] VITALS: BP 131/74
[2020-11-11] MEDS: ACETAMINOPHEN TAB 650MG DOSE (2X325MG) PO PRN ×3 (06:38→20:14)
[2020-11-11 07:12] LABS: BASO % 0.4 % (0.0-1.0); EOS # 0.3 10^3/uL (0.0-0.5); EOS % 3.8 % (0.0-3.0); HEMATOCRIT 41.1 % (36.0-47.0); HEMOGLOBIN 13.6 g/dl (12.0-15.5); LYMPH # 0.6 10^3/uL (1.5-5.0); LYMPH % 9.1 % (24.0-44.0); MEAN CORPUSCULAR HEMOGLOBIN 30.9 pg (27.0-33.0); MEAN CORPUSCULAR HGB CONC 33.1 g/dl (32.0-36.5); MEAN CORPUSCULAR VOLUME 93.4 fl (80.0-96.0); MONO # 0.9 10^3/uL (0.0-0.8); MONO % 13.4 % (2.0-8.0); NEUTROPHILS # 5.1 10^3/uL (1.5-8.5); NEUTROPHILS % 72.3 % (36.0-66.0); PLATELET COUNT, AUTOMATED 326 10^3/uL (150-450)
[2020-11-11 07:36] LABS: BLOOD UREA NITROGEN 15 MG/DL (7-18); CALCIUM LEVEL 8.9 MG/DL (8.8-10.2); CARBON DIOXIDE LEVEL 28 MEQ/L (21-32); CHLORIDE LEVEL 107 MEQ/L (98-107); CREATININE FOR GFR 0.64 MG/DL (0.55-1.30); GLOMERULAR FILTRATION RATE > 60.0 (>45); GLUCOSE, FASTING 98 MG/DL (70-100); POTASSIUM SERUM 4.5 MEQ/L (3.5-5.1); SODIUM LEVEL 141 MEQ/L (136-145)
[2020-11-11] MEDS: REMEDY PHYTOPLEX Z-GUARD PASTE 113GM TUBE (FROM STOREROOM PRODUCT) TOP SCH ×3 (09:14→21:00)
[2020-11-11] MEDS: GABAPENTIN 300 MG CAP PO SCH ×3 (09:14→20:13)
[2020-11-11] MEDS: PANTOPRAZOLE 40MG TAB (PROTONIX) PO SCH (09:14)
[2020-11-11] MEDS: BACLOFEN 10 MG TAB PO SCH ×3 (09:14→20:13)
[2020-11-11] MEDS: ENOXAPARIN 40MG/0.4ML SYRINGE (J1650 PER 10MG) SC SCH (09:14)
--- NOTE | 2020-11-11 12:20 | IPNPDOC ---
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 She report mild face soreness from her bruising. REVIEW OF SYSTEMS: The following is a completed review of systems and has been reviewed. Review of systems otherwise unremarkable. PAIN: Patient self reports no pain EYES: No recent vision changes EARS, NOSE, & THROAT: No throat pain, or dysphagia, or rhinorrhea CARDIOVASCULAR: Denies chest pain or palpitations PULMONARY: Denies shortness of breath GASTROINTESTINAL: Denies constipation/diarrhea GENITOURINARY: denies dysuria MUSCULOSKELETAL: generalized weakness NEUROLOGICAL: left LE paresis HEMATOLOGICAL: denies easy bruising SKIN: denies rash, +left periorbital ecchymosis (from admission) PSYCHIATRIC: Unremarkable All other review of systems found to be negative. PHYSICAL EXAMINATION: VITAL SIGNS: Please see below. GENERAL: Pleasant and cooperative. No acute distress. HEENT: PERRL. Extraocular movements intact. Clear conjunctiva, left periorbital ecchymosis CARDIOVASCULAR: Regular rate and rhythm. No murmurs, rubs, or gallops LUNGS: Clear to auscultation bilaterally. No wheezes. No rhonchi ABDOMEN: Soft, nontender, nondistended. Positive bowel sounds. Normal active bowel sounds NEUROLOGICAL: Alert and oriented times three. Cranial nerves II through XII grossly intact. Sensation grossly intact] EXTREMITIES: 4+\5 strength bilateral elbow flexors/extensors/wrist extension 3/5 finger abduction and DIP flexion 4\5 strength right lower extremity. 2/5 strength in left lower extremity. (-) Homans SKIN: intact ASSESSMENT:60-year-old F with past medical history of MS who presents status post exacerbation PLAN: 1. Rehab- PT/oT advance mobility and ADLs, strengthen/stretch/maintain ROM all 4 limbs, ambulating with RW 2. Neuro- hx of MS with recent exacerbation s/p high dose steroid treatment- c/u with intensive therapy, monitor for infection 3. Cardiac- no known cardiac hx, monitor BPs 4. resp- encourage incentive spirometry, monitor for infection 5. - monitor PVrs 6. DVT ppx- TEDs, will d/c lovenox per patient's request as near mobility baseline and order serial dopplers 7. Pain- baclofen and gabapentin for spasms and neuropathy 8. GI ppx protonix 9. Psych- depression, c/u cymbalta 10. Dipo: tbd Allergies Coded Allergies: Sulfa (Sulfonamide Antibiotics) (Verified Adverse Reaction, Mild, nausea, 08/26/19) Vital Signs Vital Signs Date Time Temp Pulse Resp B/P (MAP) Pulse Ox O2 Delivery O2 Flow Rate FiO2 11/11/20 05:34 98.0 89 18 131/74 (93) 95 Room Air Laboratory Data CBC/BMP Laboratory Tests 11/11/20 06:52 Labs 24H Laboratory Tests 2 11/11/20 06:52: Immature Granulocyte % (Auto) 1.0, Neutrophils (%) (Auto) 72.3H, Lymphocytes (%) (Auto) 9.1L, Monocytes (%) (Auto) 13.4H, Eosinophils (%) (Auto) 3.8H, Basophils (%) (Auto) 0.4, Neutrophils # (Auto) 5.1, Lymphocytes # (Auto) 0.6L, Monocytes # (Auto) 0.9H, Eosinophils # (Auto) 0.3, Basophils # (Auto) 0.0, Nucleated Red Blood Cells % (auto) 0.0, Anion Gap 6L, Glomerular Filtration Rate > 60.0, Calcium Level 8.9 Current Medications Current Medications Current Medications Medications (Trade) Dose Ordered Sig/Sharee Route PRN Reason Start Time Stop Time Status Last Admin Dose Admin Acetaminophen (Tylenol Tab) 650 mg Q4HP PRN PO fever/MILD PAIN (PS 1-4) 11/08/20 15:00 11/11/20 06:38 Baclofen (Lioresal) 10 mg TID PO 11/08/20 16:00 11/11/20 09:14 Duloxetine HCl (Cymbalta) 60 mg QHS PO 11/08/20 21:00 11/10/20 20:31 Enoxaparin Sodium (Lovenox) 40 mg DAILY SC 11/09/20 09:00 11/11/20 09:14 Gabapentin (Neurontin) 300 mg TID PO 11/08/20 16:00 11/11/20 09:14 Pantoprazole Sodium (Protonix) 40 mg DAILY PO 11/09/20 09:00 11/11/20 09:14 Tizanidine HCl (Zanaflex) 2 mg Q6HP PRN PO SPASMS 11/08/20 15:00 RAJESH JOHN MD Nov 11, 2020 12:20
[2020-11-11 14:00] VITALS: BP 133/65
--- NOTE | 2020-11-11 16:15 | REP ---
INDICATION: immobility. COMPARISON: Comparison bilateral lower extremity duplex venous sonography is from October 28, 2018.. TECHNIQUE: Bilateral lower extremity duplex venous ultrasound. FINDINGS: The deep veins are anechoic and fully compressible from the groin to the popliteal fossa in the left and right lower extremity. Color flow imaging is homogeneous. Spectral Doppler interrogation demonstrates intact respiratory variation in flow and normal manual augmentation of flow. There is no evidence of deep vein thrombosis. IMPRESSION: Negative bilateral lower extremity duplex venous ultrasound. No evidence of deep vein thrombosis. <Electronically signed by Harman Gomez > 11/11/20 0852
[2020-11-11 20:07] VITALS: BP 130/76
[2020-11-11] MEDS: DULoxetine 30 MG CAP (CYMBALTA) PO SCH (20:13)
[2020-11-11] MEDS: tiZANidine 4 MG TAB PO PRN (22:32)
[2020-11-12 05:09] VITALS: BP 108/68
[2020-11-12] MEDS: REMEDY PHYTOPLEX Z-GUARD PASTE 113GM TUBE (FROM STOREROOM PRODUCT) TOP SCH ×3 (09:00→20:41)
[2020-11-12] MEDS: GABAPENTIN 300 MG CAP PO SCH ×3 (09:27→20:40)
[2020-11-12] MEDS: ACETAMINOPHEN TAB 650MG DOSE (2X325MG) PO PRN ×3 (09:28→20:41)
[2020-11-12] MEDS: BACLOFEN 10 MG TAB PO SCH ×3 (09:28→20:40)
[2020-11-12] MEDS: PANTOPRAZOLE 40MG TAB (PROTONIX) PO SCH (09:28)
[2020-11-12 14:00] VITALS: BP 135/70
[2020-11-12 20:21] VITALS: BP 155/67
[2020-11-12] MEDS: DULoxetine 30 MG CAP (CYMBALTA) PO SCH (20:41)
[2020-11-12] MEDS: tiZANidine 4 MG TAB PO PRN (22:21)
[2020-11-13 05:35] VITALS: BP 121/61
[2020-11-13] MEDS: REMEDY PHYTOPLEX Z-GUARD PASTE 113GM TUBE (FROM STOREROOM PRODUCT) TOP SCH ×3 (08:17→20:58)
[2020-11-13] MEDS: PANTOPRAZOLE 40MG TAB (PROTONIX) PO SCH (08:17)
[2020-11-13] MEDS: BACLOFEN 10 MG TAB PO SCH ×3 (08:17→20:58)
[2020-11-13] MEDS: GABAPENTIN 300 MG CAP PO SCH ×3 (08:17→20:58)
[2020-11-13] MEDS: ACETAMINOPHEN TAB 650MG DOSE (2X325MG) PO PRN ×3 (08:17→20:58)
[2020-11-13 14:00] VITALS: BP 130/70
[2020-11-13] MEDS: DULoxetine 30 MG CAP (CYMBALTA) PO SCH (20:58)
[2020-11-13 21:00] VITALS: BP 132/63
[2020-11-14 06:00] VITALS: BP 138/65
[2020-11-14 07:04] LABS: BASO % 0.6 % (0.0-1.0); EOS # 0.3 10^3/uL (0.0-0.5); HEMATOCRIT 40.2 % (36.0-47.0); HEMOGLOBIN 12.8 g/dl (12.0-15.5); LYMPH # 0.6 10^3/uL (1.5-5.0); LYMPH % 9.7 % (24.0-44.0); MEAN CORPUSCULAR HEMOGLOBIN 30.2 pg (27.0-33.0); MEAN CORPUSCULAR HGB CONC 31.8 g/dl (32.0-36.5); MEAN CORPUSCULAR VOLUME 94.8 fl (80.0-96.0); MONO # 0.7 10^3/uL (0.0-0.8); MONO % 11.5 % (2.0-8.0); NEUTROPHILS # 4.6 10^3/uL (1.5-8.5); NEUTROPHILS % 73.6 % (36.0-66.0); PLATELET COUNT, AUTOMATED 293 10^3/uL (150-450); RED BLOOD COUNT 4.24 10^6/uL (4.00-5.40); WHITE BLOOD COUNT 6.2 10^3/uL (4.0-10.0)
[2020-11-14 07:24] LABS: BLOOD UREA NITROGEN 13 MG/DL (7-18); CALCIUM LEVEL 8.7 MG/DL (8.8-10.2); CARBON DIOXIDE LEVEL 29 MEQ/L (21-32); CHLORIDE LEVEL 109 MEQ/L (98-107); CREATININE FOR GFR 0.62 MG/DL (0.55-1.30); GLOMERULAR FILTRATION RATE > 60.0 (>45); GLUCOSE, FASTING 99 MG/DL (70-100); POTASSIUM SERUM 4.3 MEQ/L (3.5-5.1); SODIUM LEVEL 142 MEQ/L (136-145)
[2020-11-14] MEDS: GABAPENTIN 300 MG CAP PO SCH ×3 (09:28→20:27)
[2020-11-14] MEDS: PANTOPRAZOLE 40MG TAB (PROTONIX) PO SCH (09:28)
[2020-11-14] MEDS: BACLOFEN 10 MG TAB PO SCH ×3 (09:28→20:27)
[2020-11-14] MEDS: REMEDY PHYTOPLEX Z-GUARD PASTE 113GM TUBE (FROM STOREROOM PRODUCT) TOP SCH ×3 (09:29→20:27)
[2020-11-14] MEDS: ACETAMINOPHEN TAB 650MG DOSE (2X325MG) PO PRN ×2 (09:29→16:07)
--- NOTE | 2020-11-14 11:49 | IPNPDOC ---
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 She feels like she would like more time to practice the technics. REVIEW OF SYSTEMS: The following is a completed review of systems and has been reviewed. Review of systems otherwise unremarkable. PAIN: Patient self reports no pain EYES: No recent vision changes EARS, NOSE, & THROAT: No throat pain, or dysphagia, or rhinorrhea CARDIOVASCULAR: Denies chest pain or palpitations PULMONARY: Denies shortness of breath GASTROINTESTINAL: Denies constipation/diarrhea GENITOURINARY: denies dysuria MUSCULOSKELETAL: generalized weakness NEUROLOGICAL: left LE paresis HEMATOLOGICAL: denies easy bruising SKIN: denies rash, +left periorbital ecchymosis (from admission) PSYCHIATRIC: Unremarkable All other review of systems found to be negative. PHYSICAL EXAMINATION: VITAL SIGNS: Please see below. GENERAL: Pleasant and cooperative. No acute distress. HEENT: PERRL. Extraocular movements intact. Clear conjunctiva, left periorbital ecchymosis CARDIOVASCULAR: Regular rate and rhythm. No murmurs, rubs, or gallops LUNGS: Clear to auscultation bilaterally. No wheezes. No rhonchi ABDOMEN: Soft, nontender, nondistended. Positive bowel sounds. Normal active bowel sounds NEUROLOGICAL: Alert and oriented times three. Cranial nerves II through XII grossly intact. Sensation grossly intact] EXTREMITIES: 4+\5 strength bilateral elbow flexors/extensors/wrist extension 3/5 finger abduction and DIP flexion 4\5 strength right lower extremity. 2/5 strength in left lower extremity. (-) Homans SKIN: intact ASSESSMENT:60-year-old F with past medical history of MS who presents status post exacerbation PLAN: 1. Rehab- PT/oT advance mobility and ADLs, strengthen/stretch/maintain ROM all 4 limbs, ambulating with RW 2. Neuro- hx of MS with recent exacerbation s/p high dose steroid treatment- c/u with intensive therapy, monitor for infection 3. Cardiac- no known cardiac hx, monitor BPs 4. resp- encourage incentive spirometry, monitor for infection 5. - monitor PVrs 6. DVT ppx- TEDs, dopplers negative 7. Pain- baclofen and gabapentin for spasms and neuropathy 8. GI ppx protonix 9. Psych- depression, c/u cymbalta 10. Dipo: tbd Allergies Coded Allergies: Sulfa (Sulfonamide Antibiotics) (Verified Adverse Reaction, Mild, nausea, 08/26/19) Vital Signs Vital Signs Date Time Temp Pulse Resp B/P (MAP) Pulse Ox O2 Delivery O2 Flow Rate FiO2 11/14/20 06:00 98.1 90 18 138/65 (89) 96 Room Air Laboratory Data CBC/BMP Laboratory Tests 11/14/20 06:47 Labs 24H Laboratory Tests 2 11/14/20 06:47: Immature Granulocyte % (Auto) 0.6, Neutrophils (%) (Auto) 73.6H, Lymphocytes (%) (Auto) 9.7L, Monocytes (%) (Auto) 11.5H, Eosinophils (%) (Auto) 4.0H, Basophils (%) (Auto) 0.6, Neutrophils # (Auto) 4.6, Lymphocytes # (Auto) 0.6L, Monocytes # (Auto) 0.7, Eosinophils # (Auto) 0.3, Basophils # (Auto) 0.0, Nucleated Red Blood Cells % (auto) 0.0, Anion Gap 4L, Glomerular Filtration Rate > 60.0, C alcium Level 8.7L Current Medications Current Medications Current Medications Medications (Trade) Dose Ordered Sig/Sharee Route PRN Reason Start Time Stop Time Status Last Admin Dose Admin Acetaminophen (Tylenol Tab) 650 mg Q4HP PRN PO fever/MILD PAIN (PS 1-4) 11/08/20 15:00 11/14/20 09:29 Baclofen (Lioresal) 10 mg TID PO 11/08/20 16:00 11/14/20 09:28 Duloxetine HCl (Cymbalta) 60 mg QHS PO 11/08/20 21:00 11/13/20 20:58 Enoxaparin Sodium (Lovenox) 40 mg DAILY SC 11/09/20 09:00 11/11/20 13:07 DC 11/11/20 09:14 Gabapentin (Neurontin) 300 mg TID PO 11/08/20 16:00 11/14/20 09:28 Pantoprazole Sodium (Protonix) 40 mg DAILY PO 11/09/20 09:00 11/14/20 09:28 Tizanidine HCl (Zanaflex) 2 mg Q6HP PRN PO SPASMS 11/08/20 15:00 11/12/20 22:21 RAJESH JOHN MD Nov 14, 2020 11:49
[2020-11-14 14:00] VITALS: BP 140/63
[2020-11-14 20:00] VITALS: BP 146/66
[2020-11-14] MEDS: DULoxetine 30 MG CAP (CYMBALTA) PO SCH (20:27)
[2020-11-15 05:23] VITALS: BP 116/64
[2020-11-15] MEDS: ACETAMINOPHEN TAB 650MG DOSE (2X325MG) PO PRN ×3 (05:53→21:03)
[2020-11-15] MEDS: REMEDY PHYTOPLEX Z-GUARD PASTE 113GM TUBE (FROM STOREROOM PRODUCT) TOP SCH ×3 (09:24→21:00)
[2020-11-15] MEDS: PANTOPRAZOLE 40MG TAB (PROTONIX) PO SCH (09:24)
[2020-11-15] MEDS: BACLOFEN 10 MG TAB PO SCH ×3 (09:24→21:03)
[2020-11-15] MEDS: GABAPENTIN 300 MG CAP PO SCH ×3 (09:24→21:03)
[2020-11-15] MEDS: METAMUCIL (PSYLLIUM) PACKET PO SCH (09:24)
--- NOTE | 2020-11-15 10:16 | IPNPDOC ---
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 ALLERGIES: See Below MEDICATIONS: Reviewed, see below. OBJECTIVE: VITAL SIGNS: Please see below. PHYSICAL EXAMINATION: GENERAL: [Cachectic, well developed, sitting up in bed, no acute distress]. HEENT: [Normocephalic, atraumatic]. [No facial droop]. [Poor dentition, missing teeth. PERRL, EOMI]. CARDIOVASCULAR: [S1, S2, irregular rate]. [No lower limb edema or calf tenderne ss]. LUNGS: [Decreased breath sounds, coarse throughout]. ABDOMEN: [Soft, nontender, nondistended. Normoactive bowel sounds throughout]. MUSCULOSKELETAL: MMT: /5 strength proximally bilateral shoulder abduction, forward flexion and bilateral hip flexion. /5 strength bilateral elbow flexion, knee flexion, /5 bilateral elbow extension and knee extension. 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 NEUROLOGICAL: [Alert and oriented times three]. [Answers all question appropriately]. SKIN: . LABORATORY DATA: Reviewed. Please see below. MICROBIOLOGY: Please see below. IMAGING: ASSESSMENT AND PLAN: 1. . 2. . 3. . TIME SPENT: Chart Review, examination and documentation minutes. Allergies Coded Allergies: Sulfa (Sulfonamide Antibiotics) (Verified Adverse Reaction, Mild, nausea, 08/26/19) Vital Signs Vital Signs Date Time Temp Pulse Resp B/P (MAP) Pulse Ox O2 Delivery O2 Flow Rate FiO2 11/15/20 05:23 98.0 86 18 116/64 (81) 94 Room Air Current Medications Current Medications Current Medications Medications (Trade) Dose Ordered Sig/Sharee Route PRN Reason Start Time Stop Time Status Last Admin Dose Admin Acetaminophen (Tylenol Tab) 650 mg Q4HP PRN PO fever/MILD PAIN (PS 1-4) 11/08/20 15:00 11/15/20 05:53 Baclofen (Lioresal) 10 mg TID PO 11/08/20 16:00 11/15/20 09:24 Duloxetine HCl (Cymbalta) 60 mg QHS PO 11/08/20 21:00 11/14/20 20:27 Enoxaparin Sodium (Lovenox) 40 mg DAILY SC 2/17/21 09:00 11/11/20 13:07 DC 11/11/20 09:14 Gabapentin (Neurontin) 300 mg TID PO 11/08/20 16:00 11/15/20 09:24 Pantoprazole Sodium (Protonix) 40 mg DAILY PO 11/09/20 09:00 11/15/20 09:24 Psyllium Hydrophilic Mucilloid (Metamucil) 1 pkt DAILY PO 11/15/20 09:00 11/15/20 09:24 Tizanidine HCl (Zanaflex) 2 mg Q6HP PRN PO SPASMS 11/08/20 15:00 11/12/20 22:21 RAJESH JOHN MD Nov 15, 2020 10:16
[2020-11-15 14:00] VITALS: BP 151/65
--- NOTE | 2020-11-15 19:39 | IPNPDOC ---
Date Seen The patient was seen on 11/15/20. Progress Note SUBJECTIVE: No acute events since last evaluation by hospitalist. PT: Pt able to self manage 4WW to allow seated rest breaks in a safe manner. Pt remains motivated to improve and will cont to benefit from skilled PT to maximize functional gains and decrease burden of care. OBJECTIVE: PHYSICAL EXAMINATION: VITAL SIGNS: Please see below GENERAL: NAD, resting at bedside chair HEENT: Unremarkable, AT/NC LUNGS: CTAB, no w/r/r HEART: S1S2 +, no M/R/G ABDOMEN: Soft, nontender, BS + in 4 quad EXTREMITIES: No cyanosis clubbing or edema NEURO: CN 2-12 INTACT, no nystagmus, strength grade 4/5 strength in both legs. No sensory or motor loss. no spasticity PSYCH: Mood and affect appropriate LABORATORY: Please see below ASSESSMENT: 60 y/o F with Hx of multiple sclerosis admitted for exacerbation of MS and ambulatory dysfunction. PLAN: MS exacerbation -c/w current treatment -PT/OT -Goal home -Can f/u with neurology at [facility] Neurogenic bladder -Stable Depression -Stable -cymbalta VS, I&O, 24H, Fishbone Vital Signs/I&O Vital Signs Date Time Temp Pulse Resp B/P (MAP) Pulse Ox O2 Delivery O2 Flow Rate FiO2 11/15/20 14:00 97.8 87 18 151/65 (93) 99 Room Air I&O- Last 24 Hours up to 6 AM 11/15/20 06:00 Intake Total 960 ml Balance 960 ml Current Medications Current Medications Medications (Trade) Dose Ordered Sig/Sharee Route PRN Reason Start Time Stop Time Status Last Admin Dose Admin Acetaminophen (Tylenol Tab) 650 mg Q4HP PRN PO fever/MILD PAIN (PS 1-4) 11/08/20 15:00 11/15/20 12:50 Baclofen (Lioresal) 10 mg TID PO 11/08/20 16:00 11/15/20 15:35 Duloxetine HCl (Cymbalta) 60 mg QHS PO 11/08/20 21:00 11/14/20 20:27 Enoxaparin Sodium (Lovenox) 40 mg DAILY SC 11/09/20 09:00 11/11/20 13:07 DC 11/11/20 09:14 Gabapentin (Neurontin) 300 mg TID PO 11/08/20 16:00 11/15/20 15:34 Pantoprazole Sodium (Protonix) 40 mg DAILY PO 11/09/20 09:00 11/15/20 09:24 Psyllium Hydrophilic Mucilloid (Metamucil) 1 pkt DAILY PO 11/15/20 09:00 11/15/20 09:24 Tizanidine HCl (Zanaflex) 2 mg Q6HP PRN PO SPASMS 11/08/20 15:00 11/12/20 22:21 Allergies Coded Allergies: Sulfa (Sulfonamide Antibiotics) (Verified Adverse Reaction, Mild, nausea, 08/26/19) Jennifer Goldstein MD Nov 15, 2020 19:39
[2020-11-15] MEDS: DULoxetine 30 MG CAP (CYMBALTA) PO SCH (21:03)
[2020-11-15 22:00] VITALS: BP 131/72
[2020-11-16] MEDS: ACETAMINOPHEN TAB 650MG DOSE (2X325MG) PO PRN ×3 (05:53→20:57)
[2020-11-16 06:00] VITALS: BP 110/53
[2020-11-16 06:25] LABS: BASO % 0.6 % (0.0-1.0); EOS # 0.2 10^3/uL (0.0-0.5); EOS % 3.4 % (0.0-3.0); HEMATOCRIT 38.7 % (36.0-47.0); HEMOGLOBIN 12.5 g/dl (12.0-15.5); LYMPH # 0.7 10^3/uL (1.5-5.0); LYMPH % 10.2 % (24.0-44.0); MEAN CORPUSCULAR HEMOGLOBIN 30.6 pg (27.0-33.0); MEAN CORPUSCULAR HGB CONC 32.3 g/dl (32.0-36.5); MEAN CORPUSCULAR VOLUME 94.6 fl (80.0-96.0); MONO # 0.6 10^3/uL (0.0-0.8); MONO % 8.4 % (2.0-8.0); NEUTROPHILS # 5.2 10^3/uL (1.5-8.5); PLATELET COUNT, AUTOMATED 280 10^3/uL (150-450); RED BLOOD COUNT 4.09 10^6/uL (4.00-5.40); WHITE BLOOD COUNT 6.8 10^3/uL (4.0-10.0)
[2020-11-16 06:56] LABS: BLOOD UREA NITROGEN 19 MG/DL (7-18); CARBON DIOXIDE LEVEL 29 MEQ/L (21-32); CHLORIDE LEVEL 105 MEQ/L (98-107); CREATININE FOR GFR 0.61 MG/DL (0.55-1.30); GLOMERULAR FILTRATION RATE > 60.0 (>45); GLUCOSE, FASTING 96 MG/DL (70-100); POTASSIUM SERUM 4.2 MEQ/L (3.5-5.1); SODIUM LEVEL 139 MEQ/L (136-145)
[2020-11-16] MEDS: REMEDY PHYTOPLEX Z-GUARD PASTE 113GM TUBE (FROM STOREROOM PRODUCT) TOP SCH ×3 (09:00→20:57)
[2020-11-16] MEDS: GABAPENTIN 300 MG CAP PO SCH ×3 (09:33→20:57)
[2020-11-16] MEDS: BACLOFEN 10 MG TAB PO SCH ×3 (09:34→20:57)
[2020-11-16] MEDS: PANTOPRAZOLE 40MG TAB (PROTONIX) PO SCH (09:34)
[2020-11-16] MEDS: METAMUCIL (PSYLLIUM) PACKET PO SCH (09:34)
[2020-11-16 14:00] VITALS: BP 112/73
[2020-11-16 20:30] VITALS: BP 132/83
[2020-11-16] MEDS: DULoxetine 30 MG CAP (CYMBALTA) PO SCH (20:57)
[2020-11-17 06:58] VITALS: BP 118/59
[2020-11-17] MEDS: BACLOFEN 10 MG TAB PO SCH ×3 (08:17→20:52)
[2020-11-17] MEDS: GABAPENTIN 300 MG CAP PO SCH ×3 (08:17→20:52)
[2020-11-17] MEDS: PANTOPRAZOLE 40MG TAB (PROTONIX) PO SCH (08:17)
[2020-11-17] MEDS: METAMUCIL (PSYLLIUM) PACKET PO SCH (08:17)
[2020-11-17] MEDS: REMEDY PHYTOPLEX Z-GUARD PASTE 113GM TUBE (FROM STOREROOM PRODUCT) TOP SCH ×3 (08:21→21:00)
[2020-11-17 14:00] VITALS: BP 132/66
[2020-11-17] MEDS: ACETAMINOPHEN TAB 650MG DOSE (2X325MG) PO PRN ×2 (16:54→20:54)
[2020-11-17 20:20] VITALS: BP 131/71
[2020-11-17] MEDS: DULoxetine 30 MG CAP (CYMBALTA) PO SCH (20:52)
[2020-11-18 05:38] VITALS: BP 119/58
[2020-11-18] MEDS: GABAPENTIN 300 MG CAP PO SCH ×3 (09:58→21:45)
[2020-11-18] MEDS: BACLOFEN 10 MG TAB PO SCH ×3 (09:58→21:46)
[2020-11-18] MEDS: PANTOPRAZOLE 40MG TAB (PROTONIX) PO SCH (09:58)
[2020-11-18] MEDS: METAMUCIL (PSYLLIUM) PACKET PO SCH (09:58)
[2020-11-18] MEDS: REMEDY PHYTOPLEX Z-GUARD PASTE 113GM TUBE (FROM STOREROOM PRODUCT) TOP SCH ×3 (09:59→21:00)
[2020-11-18] MEDS: ACETAMINOPHEN TAB 650MG DOSE (2X325MG) PO PRN (16:14)
[2020-11-18 20:00] VITALS: BP 136/76
[2020-11-18] MEDS: DULoxetine 30 MG CAP (CYMBALTA) PO SCH (21:45)
[2020-11-19 05:24] VITALS: BP 144/63
[2020-11-19] MEDS: ACETAMINOPHEN TAB 650MG DOSE (2X325MG) PO PRN ×2 (05:30→14:16)
[2020-11-19] MEDS: PANTOPRAZOLE 40MG TAB (PROTONIX) PO SCH (09:13)
[2020-11-19] MEDS: METAMUCIL (PSYLLIUM) PACKET PO SCH (09:13)
[2020-11-19] MEDS: REMEDY PHYTOPLEX Z-GUARD PASTE 113GM TUBE (FROM STOREROOM PRODUCT) TOP SCH ×3 (09:13→20:58)
[2020-11-19] MEDS: GABAPENTIN 300 MG CAP PO SCH ×3 (09:13→20:58)
[2020-11-19] MEDS: BACLOFEN 10 MG TAB PO SCH ×3 (09:13→20:58)
[2020-11-19 14:00] VITALS: BP 130/69
[2020-11-19 20:00] VITALS: BP 121/78
[2020-11-19] MEDS: DULoxetine 30 MG CAP (CYMBALTA) PO SCH (20:58)
[2020-11-20 05:14] VITALS: BP 127/62
[2020-11-20] MEDS: PANTOPRAZOLE 40MG TAB (PROTONIX) PO SCH (08:01)
[2020-11-20] MEDS: METAMUCIL (PSYLLIUM) PACKET PO SCH (08:01)
[2020-11-20] MEDS: REMEDY PHYTOPLEX Z-GUARD PASTE 113GM TUBE (FROM STOREROOM PRODUCT) TOP SCH (08:01)
[2020-11-20] MEDS: GABAPENTIN 300 MG CAP PO SCH (08:01)
[2020-11-20] MEDS: BACLOFEN 10 MG TAB PO SCH (08:01)
[2020-11-20] MEDS ORDERED: GABA-282 PO (09:03)
[2020-11-20] MEDS ORDERED: DULO1CAP6 PO (09:03)
[2020-11-20] MEDS ORDERED: BACL10TA2 PO (09:03)
== END 2020-11-20 11:52 | disposition home health service (06) | DRG 60 ==
LOC: M PM&R 14:10
PROVIDERS: ADMIT Physical Medicine & Rehabilitation; ATTEND Physical Medicine & Rehabilitation
DX: G35 Multiple sclerosis (principal); N31.9 Neuromuscular dysfunction of bladder, unspecified; F32.9 Major depressive disorder, single episode, unspecified; J30.2 Other seasonal allergic rhinitis; R53.1 Weakness; Z74.09 Other reduced mobility; Z74.1 Need for assistance with personal care; M62.838 Other muscle spasm; G62.9 Polyneuropathy, unspecified; Z79.899 Other long term (current) drug therapy; Z88.2 Allergy status to sulfonamides

== ENCOUNTER → 2021-03-31 | Outpatient (CLI) | payer MEDICARE ==
[2021-03-31 14:18] LABS: BASO % 0.4 % (0.0-1.0); EOS % 4.2 % (0.0-3.0); HEMATOCRIT 41.5 % (36.0-47.0); HEMOGLOBIN 13.9 g/dl (12.0-15.5); LYMPH % 4.2 % (24.0-44.0); MEAN CORPUSCULAR HEMOGLOBIN 31.4 pg (27.0-33.0); MEAN CORPUSCULAR HGB CONC 33.5 g/dl (32.0-36.5); MEAN CORPUSCULAR VOLUME 93.9 fl (80.0-96.0); MONO % 14.8 % (2.0-8.0); PLATELET COUNT, AUTOMATED 296 10^3/uL (150-450); RED BLOOD COUNT 4.42 10^6/uL (4.00-5.40); WHITE BLOOD COUNT 4.5 10^3/uL (4.0-10.0)
[2021-03-31 14:19] LABS: EOS # 0.2 10^3/uL (0.0-0.5); LYMPH # 0.2 10^3/uL (1.5-5.0); MONO # 0.7 10^3/uL (0.0-0.8); NEUTROPHILS # 3.5 10^3/uL (1.5-8.5)
== END ==
LOC: M LAB 12:09
PROVIDERS: ATTEND Psychiatry & Neurology Neurology
DX: G35 Multiple sclerosis (principal)

== ENCOUNTER → 2021-04-24 | Outpatient (CLI) | payer MEDICARE ==
[~2021-04-24] MED LIST changes: +ADVI200T PO; +BACL1TAB8 PO; +COLA100C5 PO; +DULO60CA35 PO; +ELIQ5TAB PO; +GABA-283 PO; +MIRA1POW3 PO; +NITR100C2 PO; +PANT40TA29 PO; +PROHANCE 279.3MG/ML 15ML VIAL ONE; +PROP20TA PO; +PROP20TA72 PO; +SENN18TA PO; +SIPO2TAB PO; +SUCR1ORA PO; +TIZA10TA PO; -TIZA4TAB4 PO
== END ==
LOC: M PLAIMG 12:39
PROVIDERS: ATTEND Psychiatry & Neurology Neurology
DX: G35 Multiple sclerosis (principal)
CPT/HCPCS: 70553; 72156; 72157; A9576

== ENCOUNTER → 2021-07-17 | Outpatient (CLI) | payer MEDICARE ==
[~2021-07-17] MED LIST changes: -ADVI200T PO; -BACL1TAB8 PO; -COLA100C5 PO; -DULO60CA35 PO; -ELIQ5TAB PO; -GABA-283 PO; -MIRA1POW3 PO; -NITR100C2 PO; -PANT40TA29 PO; -PROHANCE 279.3MG/ML 15ML VIAL ONE; -PROP20TA PO; -PROP20TA72 PO; -SENN18TA PO; -SIPO2TAB PO; -SUCR1ORA PO; -TIZA10TA PO; +TIZA4TAB4 PO
== END ==
LOC: EDSTATUS 11:30 → M PT 11:31
PROVIDERS: ATTEND Internal Medicine
DX: G35 Multiple sclerosis (principal)

== ENCOUNTER 2021-08-08 18:12 | Inpatient (IN) | payer MEDICARE ==
[~2021-08-08] VITALS: Ht 165.1 cm; Wt 59.6 kg
[2021-08-08] MEDS ORDERED: NITR100C2 PO (19:21)
[2021-08-08] MEDS ORDERED: PROP20TA72 PO ×2 (19:21→22:29)
--- NOTE | 2021-08-08 20:00 | REP ---
INDICATION: admission. COMPARISON: Portable chest, 11/07/2020. TECHNIQUE: Upright AP portable chest image was obtained. FINDINGS: The lungs are clear. The heart borders mediastinum and pulmonary vascular pattern normal. The upper abdominal bowel gas pattern is normal. There are no bony abnormalities of the chest. IMPRESSION: No evidence of acute cardiopulmonary pathology. <Electronically signed by Prashant Mayers > 08/08/211955
--- OUTSIDE RECORDS SUMMARY | 2021-08-08 20:11 | CCD | Continuity of Care Document ---
Author Author Verónica GERMAN DPM Organization Unknown Address [address] [facility], [facility] [[email or web address]] [address] [place] [address] Phone [phone] Care Team Providers Care [address] Magistrate Name Role Phone Linda Akers M.D. [phone] Problems Active Problems Provider Date Acquired hallux [...] Use Start: Unknown Patient has never smoked Allergies and adverse reactions Active Allergies Criticality Reaction | Severity Comments Date Sulfa Antibiotics Unable to assess criticality irritat es stomach when taken 09/08/2014 Medications Active Medications [...] 4mg Tablets Unknown Tecfidera 240mg Capsules DR Rebekah Amlodipine Besylate 2.5mg Tablets Take One Tablet [...] One Tablet By Mouth AT Night Unknown Baclofen 10mg Tablets Take One To Two Tablets By Mouth Up To Three Times A Day as Needed For Spasticity Unknown Tysabri Unknown Tamsulosin HCL 0.4mg Capsules Unknown Prednisone 10mg Tablets Unknown Amoxicillin/Clavulanate Potassium 875-125mg Tablets Unknown Vitamin D (Ergocalciferol) 27828Lzsh Capsules Unknown Fluoxetine HCL 40mg Capsules Unknown Terconazole 0.8% Cream Unknown Nitrofurantoin Monohyd Macro 100mg Capsules Unknown Rebif 44mcg/0.5ML Solution Unknown Ampicillin 250mg Capsules Unknown Tizanidine HCL 4mg Tablets Unknown Immunizations Description No Information Available Vital Signs [...] Information Available Procedures Date Code Description Status 04/17/2021 73411 Debridement 6-10 Nails Electric Completed Medical Devices Description No Information Available Encounters Description No Information Available Assessments Date Code Description Provider 04/17/2021 B35.1 Tinea unguium Mckinley German DPM 04/17/2021 I73.89 Other specified peripheral vascu lar diseases Mckinley German DPM Plan of Treatment Future Appointment(s):* 09/21/2021 1:00 pm - Mckinley German DPM at [facility] Functional Status Description No Information Available Mental Status Description No Information Available Referrals Description No Information Available
--- OUTSIDE RECORDS SUMMARY | 2021-08-08 20:11 | CCD | Continuity of Care Document ---
Author Author Verónica GERMAN DPM Organization Unknown Address 3 [facility], [facility] [address] [place] [address] Phone [phone] Care Team Providers Care Church Organist Name Role Phone Linda Akers M.D. [phone] Problems Active Problems Provider Date Acquired hallux [...] Potassium 875-125mg Tablets Unknown Vitamin D (Ergocalciferol) 88541Zslf Capsules Unknown Fluoxetine HCL 40mg Capsules Unknown [...] Information Available Procedures Date Code Description Status 07/06/2021 28238 Debridement 6-10 Nails Electric Completed 04/17/2021 67090 Debridement 6-10 Nails Electric Completed Medical Devices Description No Information Available Encounters Description No Information Available Assessments Date Code Description Provider 07/06/2021 B35.1 Tinea unguium Mckinley German, ASHWINI 07/06/2021 I73.89 Other specified peripheral vascu lar diseases Mckinley German DPM 04/17/2021 B35.1 Tinea unguium Mckinley German, ASHWINI 04/17/2021 I73.89 Other specified peripheral vascu lar diseases Mckinley German DPM Plan of Treatment Future Appointment(s):* 09/21/2021 1:00 pm - Mckinley German DPM at [facility] Functional Status Description No Information Available Mental Status Description No Information Available Referrals Description No Information Available
--- OUTSIDE RECORDS SUMMARY | 2021-08-08 20:11 | CCD | Continuity of Care Document ---
Author Author Verónica GERMAN DPM Organization Unknown Address 3 [facility], [facility] [address] [place] [address] Phone [phone] Care Team Providers Care Manager Molecular Name Role Phone Linda Akers M.D. [phone] Problems Active Problems Provider Date Acquired hallux [...] Potassium 875-125mg Tablets Unknown Vitamin D (Ergocalciferol) 45913Iwyp Capsules Unknown Fluoxetine HCL 40mg Capsules Unknown [...] Available Procedures Date Code Description Status 04/17/2021 22625 Debridement 6-10 Nails Electric Completed Medical Devices Description No Information Available Encounters Description No Information Available Assessments Date Code Description Provider 04/17/2021 B35.1 Tinea unguium Mckinley German DPM 04/17/2021 I73.89 Other specified peripheral vascu lar diseases Mckinley German DPM Plan of Treatment Future Appointment(s):* 09/21/2021 1:00 pm - Mckinley German DPM at [facility] Functional Status Description No Information Available Mental Status Description No Information Available Referrals Description No Information Available
--- OUTSIDE RECORDS SUMMARY | 2021-08-08 20:12 | CCD ---
Author Author [facility] Organization [facility] Address Unknown Phone Unavailable Care Team Providers Care Sizing End Bander Name Role Phone Raghu GUTIERRES, A Jory Unavailable Raghu GUTIERRES, A Jory Unavailable Raghu GUTIERRES, A Jory Unavailable Raghu GUTIERRES, A Jory Unavailable Raghu GUTIERRES, A Jory Unavailable Raghu GUTIERRES, A Jory Unavailable Raghu GUTIERRES, A Jory Unavailable Raghu GUTIERRES, A Jory Unavailable Raghu GUTIERRES, A Jory Unavailable aRghu GUTIERRES, A Jory Unavailable Raghu GUTIERRES, A Jory Unavailable Raghu GUTIERRES, A Jory Unavailable Raghu GUTIERRES, A Jory Unavailable Raghu MD, A Jory Unavailable Raghu MD, A Jory Unavailable Raghu MD, A Jory Unavailable Raghu MD, A Jory Unavailable Raghu MD, A Jory Unavailable Raghu MD, A Jory Unavailable Raghu MD, A Jory Unavailable Raghu MD, A Jory Unavailable Raghu MD, A Jory Unavailable Raghu MD, A Jory Unavailable Raghu MD, A Jory Unavailable Raghu MD, A Jory Unavailable Raghu MD, A Jory Unavailable Raghu MD, A Jory Unavailable Raghu MD, A Jory Unavailable Raghu MD, A Jory Unavailable Raghu MD, A Jory Unavailable Raghu MD, A Jory Unavailable Raghu MD, A Jory Unavailable Raghu MD, A Jory Unavailable Raghu MD, A Jory Unavailable Raghu MD, A Jory Unavailable Raghu MD, A Jory Unavailable Raghu MD, A Jory Unavailable Raghu MD, A Jory Unavailable Raghu MD, A Jory Unavailable Raghu MD, A Jory Unavailable Raghu GUTIERRES, A Jory Unavailable Raghu GUTIERRES, A Jory Unavailable Raghu GUTIERRES, A Jory Unavailable Raghu GUTIERRES, A Jory Unavailable Raghu GUTIERRES, A Jory Unavailable Raghu GUTIERRES, A Jory Unavailable Raghu GUTIERRES, A Jory Unavailable Raghu GUTIERRES, A Jory Unavailable ROYAL, JOSUE GUTIERRES Unavailable Unavailable ROYAL, [...] Unavailable ROYAL, JOSUE GUTIERRES Unavailable Unavailable ROYAL, JSOUE GUTIERRES Unavailable Unavailable ROYAL, JOSUE GUTIERRES Unavailable [...] Unavailable Unavailable ROYAL, JOSUE GUTIERRES Unavailable Unavailable Brittny, Loly DO Unavailable Unavailable [...] Unavailable Brittny, Loly DO Unavailable Unavailable Brittny, Loyl DO Unavailable Unavailable Brittny, Loly DO Unavailable [...] Unavailable Unavailable Brittny, Loly DO Unavailable Unavailable Rayancha, Fanta MD Unavailable Unavailable Rayancha, Fanta MD Unavailable Unavailable Rayancha, Fanta MD Unavailable Unavailable Rayancha, Fanta MD Unavailable Unavailable Rayancha, Fanta MD Unavailable Unavailable Rayancha, Fanta MD Unavailable Unavailable Rayancha, Fanta MD Unavailable Unavailable Rayancha, Fanta MD Unavailable Unavailable Rayancha, Fanta MD Unavailable Unavailable Rayancha, Fanta MD Unavailable Unavailable Rayancha, Fanta MD Unavailable Unavailable Rayancha, Fanta MD Unavailable Unavailable Rayancha, Fanta MD Unavailable Unavailable Rayancha, Fanta MD Unavailable Unavailable Rayancha, Fanta MD Unavailable Unavailable Rayancha, Fanta MD Unavailable Unavailable Rayancha, Fanta MD Unavailable Unavailable Rayancha, Fanta MD Unavailable Unavailable Rayancha, Fanta MD Unavailable Unavailable Rayancha, Fanta MD Unavailable Unavailable Rayancha, Fanta MD Unavailable Unavailable Rayancha, Fanta MD Unavailable Unavailable Rayancha, Fanta MD Unavailable Unavailable Rayancha, Fanta MD Unavailable Unavailable Rayancha, Fanta MD Unavailable Unavailable Rayancha, Fanta MD Unavailable Unavailable Rayancha, Fanta MD Unavailable Unavailable Rayancha, Fanta MD Unavailable Unavailable Rayancha, Fanta MD Unavailable Unavailable Rayancha, Fanta MD Unavailable Unavailable Rayancha, Fanta MD Unavailable Unavailable Rayancha, Fanta MD Unavailable Unavailable Rayancha, Fanta MD Unavailable Unavailable Rayancha, Fanta MD Unavailable Unavailable Rayancha, Fanta MD Unavailable Unavailable Rayancha, Fanta MD Unavailable Unavailable Rayancha, Fanta MD Unavailable Unavailable Rayancha, Fanta MD Unavailable Unavailable Rayancha, Fanta MD Unavailable Unavailable Rayancha, Fanta MD Unavailable Unavailable Rayancha, Fanta MD Unavailable Unavailable Rayancha, Fanta MD Unavailable Unavailable Rayancha, Fanta MD Unavailable Unavailable Rayancha, Fanta MD Unavailable Unavailable Rayancha, Fanta MD Unavailable Unavailable Rayancha, Fanta MD Unavailable Unavailable Rayancha, Fanta MD Unavailable Unavailable Tiskilwa, Luz STRINGING MACHINE TENDER Unavailable Unavailable Tiskilwa, Luz STRINGING MACHINE TENDER Unavailable Unavailable Tisk[place], Luz STRINGING MACHINE TENDER Unavailable Unavailable Tiskil[place], Luz STRINGING MACHINE TENDER Unavailable Unavailable Tisk[place], Luz STRINGING MACHINE TENDER Unavailable Unavailable Jeff, Luz STRINGING MACHINE TENDER Unavailable Unavailable Jeff, Luz STRINGING MACHINE TENDER Unavailable Unavailable Tiskilwa, Luz STRINGING MACHINE TENDER Unavailable Unavailable [place], Luz STRINGING MACHINE TENDER Unavailable Unavailable Jeff, Luz STRINGING MACHINE TENDER Unavailable Unavailable Tiskil[place], Luz STRINGING MACHINE TENDER Unavailable Unavailable Jeff, Luz STRINGING MACHINE TENDER Unavailable Unavailable Jeff, Luz STRINGING MACHINE TENDER Unavailable Unavailable Tiskilwa, Luz STRINGING MACHINE TENDER Unavailable Unavailable Jeff, Luz STRINGING MACHINE TENDER Unavailable Unavailable Tiskil[place], Luz STRINGING MACHINE TENDER Unavailable Unavailable Tiskil[place], Luz STRINGING MACHINE TENDER Unavailable Unavailable T[place]il[place], Luz STRINGING MACHINE TENDER Unavailable Unavailable Tiskil[place], Luz STRINGING MACHINE TENDER Unavailable Unavailable T[place]il[place], Luz STRINGING MACHINE TENDER Unavailable Unavailable Jeff, Luz STRINGING MACHINE TENDER Unavailable Unavailable T[place]il[place], Luz STRINGING MACHINE TENDER Unavailable Unavailable T[place], Luz STRINGING MACHINE TENDER Unavailable Unavailable [place], Luz STRINGING MACHINE TENDER Unavailable Unavailable T[place], Luz STRINGING MACHINE TENDER Unavailable Unavailable T[place]il[place], Luz STRINGING MACHINE TENDER Unavailable Unavailable Jeff, Luz STRINGING MACHINE TENDER Unavailable Unavailable [place]il[place], Luz STRINGING MACHINE TENDER Unavailable Unavailable Jeff, Luz STRINGING MACHINE TENDER Unavailable Unavailable Tiskil[place], Luz STRINGING MACHINE TENDER Unavailable Unavailable T[place]il[place], Luz STRINGING MACHINE TENDER Unavailable Unavailable Tiskil[place], Luz STRINGING MACHINE TENDER Unavailable Unavailable [place], Luz STRINGING MACHINE TENDER Unavailable Unavailable Jeff, Luz STRINGING MACHINE TENDER Unavailable Unavailable Tiskil[place], Luz STRINGING MACHINE TENDER Unavailable Unavailable Debbi DELATORRE MD Unavailable Unavailable [...] Unavailable Unavailable Debbi DELATORRE MD Unavailable Unavailable MIDebbi ALLISON MD Unavailable Unavailable Debbi DELATORRE MD Unavailable Unavailable Debbi DELATORRE MD Unavailable Unavailable Debbi DELATORRE MD Unavailable Unavailable Debbi DELATORRE MD Unavailable Unavailable Debbi DELATORRE MD Unavailable Unavailable Re-disclosure Warning The records [...] is protected by Article 27-F of the [facility] Public Health law. If you continue you may have access to information: Regarding HIV / AIDS; Provided by facilities licensed or operated by the [facility] Office of Mental Health; or Provided by the [facility] Office for People With Developmental Disabilities. If such information is present, then the following [facility] mandated warning applies: This information has [...] law may result in a fine or senior living sentence or both. A general authorization for the release of medical or other information is NOT sufficient authorization for further disc losure. Family History Family Member Name Family Member Gender Family Member Status Date o f Status Description Data Source(s) Unknown Male Problem [facility] ([facility]) Unknown Female Problem [facility] ([facility] Unknown Female Problem [facility] ([facility] Unknown Female Problem [facility] ([facility] Encounters Encounter Providers Location Date Indications Data Source(s ) Outpatient Attender: Luz LANGE 08/25/2021 12:00: 00 AM [facility] Outpatient Attender: Fanta Taveras MD 08/24/2021 12:00: 00 AM [facility] Outpatient Attender: Jory Doyle MD 08/23/2021 12:00:00 A M [facility] Outpatient Attender: MANDY MARYeferrer: Loly Mart DO 06/29/2021 12:00:00 AM [facility] Outpatient Attender: Jory Doyle MDReferrer: Loly Guzman [id number] 06/26/2021 12:00:00 AM EDT - 06/26/2021 12:22:21 PM [facility] Outpatient Attender: Jory Doyle MD 04/28/2021 12:00:00 A M [facility] Outpatient Attender: Loly Hanks 04/06 01:30:00 PM EDT [facility] ([facility] ) Outpatient Attender: Jory Floreserrer: Jory Doyle MD 03/02/2021 12:00:00 AM EDT [facility] Multiple sclerosis Outpatient Attender: Jory Floreserrer: Jory Doyle MD 02/21/2021 12:00:00 AM [facility] Outpatient Attender: Loly Hanks 02/14 01:15:00 PM EDT [facility] ([facility] ) Outpatient 02/14/2021 12:00:00 AM [facility] Outpatient Attender: oJry Doyle MDAdm itter: Jory MARYeferrer: Loly Mart DO [id number] 01/26/2021 12:00:00 AM EDT - 01/26/2021 11:18:45 AM EDT [facility] Multiple sclerosis Outpatient Attender: MANDY DELATORRE MDReferrer: Loly Mart DO [id number] 12/27/2020 12:00:00 AM EDT - 12/27/2020 11:42:51 AM EDT Other specified forms of tremor [facility] Other specified forms of tremor Outpatient Attender: Jory Doyle MD 12/12/2020 12:00:00 A M T [facility] Outpatient Attender: Loly Hanks 11/25 10:00:00 AM EST [facility] ([facility] ) Outpatient 11/07/2020 10:52:00 PM EST neurology consult [facility] neurology consult Outpatient Attender: Luz Aguilar STRINGING MACHINE TENDER [id number] 12:00:00 AM EST - 10/26/2020 02:48:40 [facility]: Jory Doyle MD 10/26/2020 12:00:00 A M [facility] Outpatient Attender: Jory Doyle MDReferrer: JOSUE PAIGE MD [id number] 08/31/2020 12:00:00 AM EST - 08/31/2020 10:27:15 AM EST [facility] Multiple sclerosis Outpatient Attender: JOSUE PAIGE MD Main office - [facility] 08/25/2020 03:15:00 PM EST [facility] ([facility] Outpatient Attender: Loly Hanks 08/15 12:45:00 PM EST [facility] ([facility] ) Out[facility] Attender: [facility]/2020 03:45:00 PM EDT [facility] ([facility]) Outpatient Attender: Loly Hanks 07/15 02:15:00 PM EDT [facility] ([facility] ) Outpatient Attender: Loly Hanks 06/10 03:00:00 PM EDT [facility] ([facility] ) Immunizations Vaccine Date Status Description Data Source(s) COVID-19 VACCINE Pfizer 12/23/2020 12:00:00 AM EDT completed [facility]IS Vaccine Series Complete: YESThis Data wa s Submitted to [facility] Via [employer]. COVID-19 VACCINE Pfizer 12/02/2020 12:00:00 AM EST completed MNSIIS Vaccine Series Complete: NOThis Data was Submitted to [facility] Via [employer]. 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 Amlodipine 5 MG Oral Tablet Amlodipine Besylate 02/14/2021 12:00:00 A M EDT ORAL active [facility] ([facility]) gabapentin 400 MG Oral Capsule Gabapentin 400 MG Oral Capsule (Neurontin) Gabapentin 400 MG Oral Capsule (Neurontin) 01/09/2021 12:00:00 AM EDT 400 mg Oral active Nerve painMultiple sclerosis exacerb ation Take 1 capsule by mouth Three times daily [facility] Nerve pain Multiple sclerosis exacerbation Propranolol Hydrochloride 10 MG Oral Tab let Propranolol HCl 10 MG Oral Tablet (INDERAL) Propranolol HCl 10 MG Oral Tablet (INDERAL) 12/27/2020 12:00:00 AM EDT active Start In deral 10 mg twice daily after two weeks increase to 20 mg in morning and 10 mg at night, in two weeks increase to 20 mg twice daily. [facility] Mayzent 2 MG Oral Tablet (Siponimod Fumarate) [id number] 11/04/2020 12:00:00 AM EST 2 mg Oral active Take 2 mg by mout h Daily [facility] methylPREDNISolone Sodium Succ 1000 MG I njection Solution Reconstituted (SOLU-MEDROL) [id number] 10/26/2020 12:00:00 AM EST aborted 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 [facility] Secondary progressive multiple sclerosis Amoxicillin 500 MG / Clavulanate 125 MG Oral Tablet Am oxicillin/Clavulanate Potassium 10/07/2020 12:00:00 AM EST ORAL completed [facility] ([facility]) gabapentin 300 MG Oral Capsule Gabapentin 300 MG Oral Capsule (NEURONTIN) Gabapentin 300 MG Oral Capsule (NEURONTIN) 08/20/2020 12:00:00 AM EST 300 mg Oral aborted Take 300 mg by mouth Three times daily [facility] duloxetine 30 MG Delayed Release Oral Capsule Duloxetine HCL 08/15/2020 12:00:00 AM EST ORAL completed [facility] ([facility]) teriflunomide 7 MG Oral Tablet [Aubagio] Aubagio 08/09/2020 12:00: 00 AM EST ORAL active [facility] ([facility]) NITROFURANTOIN, MACROCRYSTALS 25 MG / Ni trofurantoin, Monohydrate 75 MG Oral Capsule Nitrofurantoin Monohyd Macro 08/08/2020 12:00:00 AM EST ORAL completed [facility] ([facility]) Primidone 50 MG Oral Tablet Primidone 07/19/2020 12:00:00 AM EDT ORAL active [facility] ([facility]) duloxetine 60 MG Delayed Release Oral Capsule Duloxetine HCL 07/15/2020 12:00:00 AM EDT active [facility] ([facility]) Amlodipine 5 MG Oral Tablet Amlodipine Besylate 06/10/2020 12:00:00 A M EDT ORAL completed [facility] ([facility]) Amlodipine 2.5 MG Oral Tablet Amlodipine Besylate 03/24/2020 12:00: 00 AM EDT ORAL completed [facility] ([facility]) duloxetine 30 MG Delayed Release Oral Capsule Duloxetine HCL 01/15/2020 12:00:00 AM EDT ORAL completed [facility] ([facility]) Fluoxetine 40 MG Oral Capsule fluoxetine (PROZAC) 40 M G capsule fluoxetine (PROZAC) 40 MG capsule 40 mg Oral aborted Take 40 mg by mouth daily. [facility] ropinirole 1 MG Oral Tablet rOPINIRole HCl 1 MG Oral T ablet (REQUIP) rOPINIRole HCl 1 MG Oral Tablet (REQUIP) 1 mg Oral aborted Take 1 mg by mouth Three times daily [facility] dimethyl fumarate 240 MG Delayed Release Oral Capsule Dimethyl Fumarate 240 MG Oral Capsule Delayed Release (Tecfidera) Dimethyl Fumarate 240 MG Oral Capsule Delayed Release (Tecfidera) Oral aborted Take by mouth Two Times Daily [facility] Insurance Providers Payer name Policy type / Coverage type Policy ID Covered constitution party ID Covered constitution party's relationship to richard Policy Richard Plan Information [facility] Health Maintenance Organization ([facility]) [id number] Self Y [id number] [facility] Blue o Health Maintenance Organization ([facility]) [id number] Self [id number] [facility] Blue o Health Maintenance Organization (O) [id number] Self Y [id number] [facility] Blue o Health Maintenance Organization ([facility]) [id number] Self Y [id number] [facility] Blue o Health Maintenance Organization (O) [id number] Self Y [id number] [facility] [employer] o Health Maintenance Organization (O) [id number] Self Y [id number] [facility] Blue o Health Maintenance Organization ([facility]) [id number] Self Y [id number] MEDICARE [id number] SP [id number] A [facility] Blue o Health Maintenance Organization ([facility]) [id number] Self Y [id number] [facility] Blue o Health Maintenance Organization (O) [id number]3.0 Self Y [id number] [facility] Blue [facility] Health Maintenance Organization (HMO) [id number] Self Usbpi MEDICARE A [id number] Self [id number] A MEDICARE A [id number] Self [id number] BS Max Trad/MX Commercial [id number] Family Dependent S [id number] [place] Trad/MX Commercial [id number] [id number]95.7773.0 Family Dependent S [id number] [place] Trad/MX Medigap Part B [id number] [id number]95.7773.0 Family Dependent S [id number] BS [place] Trad/MX Medigap Part B [id number] [id number]3.0 Family Dependent S [id number] [place] Trad/MX Commercial [id number] 2.16840.1.645904.3.227.99.4595.7773.0 Family Dependent S [id number] [place] Trad/MX Medigap Part B [id number] 2.16840.1.426257.3.227.99.4595.7773.0 Family Dependent S [id number] BS [place] Trad/MX Medigap Part B [id number] 2.16840.1.721747.3.227.99.4595.7773.0 Family Dependent S [id number] [place] Trad/MX Commercial [id number] Family Dependent 804 BS Max Trad/MX Medigap Part B [id number] Family Dependent [id number] BS [place] Trad/MX Commercial [id number] 2.16840.1.724359.3.227.99.4595.7773.0 Family Dependent S [id number] [place] Trad/MX Commercial [id number] [place] PPO 302/307 [id number] HU2 [id number] [place] PPO 302/307 [id number] HU2 [id number] [place] Trad/MX Medigap Part B [id number] Medicare Natl Govt Servic Medicare Primary [id number] 2.16840.1.675944.3.227.99.4595.7773.0 Self 0 [id number] Medicare Natl Govt Servic Medicare Primary [id number] 2.16840.1.776629.3.227.99.4595.7773.0 Self 0 [id number] Medicare Natl Govt Servic Medicare Primary [id number] 2.840.1.119150.3.227.99.4595.7773.0 Self [id number] Medicare Natl Govt Servic Medicare Primary [id number] 2.16840.1.814511.3.227.99.4595.7773.0 Self 0 [id number] Medicare Natl Govt Servic Medicare Primary [id number] 2.16840.1.978558.3.227.99.4595.7773.0 Self 4 [id number] Medicare Natl Govt Servic Medicare Primary [id number] 2.840.1.677744.3.227.99.4595.7773.0 Self 4 [id number] Medicare Natl Govt Servic Medicare Primary [id number] Self Medicare Natl Govt Servic Medicare Primary [id number] Self [id number] Medicare Natl Govt Servic Medicare Primary [id number] 2.16840.1.180970.3.227.99.4595.7773.0 Self [id number] [facility] Primary [id number] 2.16.840.1.571830.3.227.99.4595.7773.0 Self 0 [id number] [place] Trad/MX Commercial [id number] 2.16.840.1.566660.3.227.99.4595.7773.0 Family Dependent V [id number] [place] Trad/MX Medigap Part B [id number] 2.16840.1.554170.3.227.99.4595.7773.0 Family Dependent V [id number] [place] Trad/MX Commercial [id number] 2.0.1.249718.3.227.99.4595.7773.0 Family Dependent V [id number] [place] Trad/MX Medigap Part B [id number] 2.0.1.107166.3.227.99.4595.7773.0 Family Dependent V [id number] [place] Trad/MX Medigap Part B [id number] 2.0.1.378230.3.227.99.4595.7773.0 Family Dependent V [id number] [place] Trad/MX Commercial [id number] 2.16840.1.897229.3.227.99.4595.7773.0 Family Dependent V [id number] [place] Trad/MX Commercial [id number] Family Dependent 802 [place] Trad/MX Medigap Part B [id number] 2.0.1.341758.3.227.99.4595.7773.0 Family Dependent V [id number] [place] Trad/MX Medigap Part B [id number] Family Dependent [id number] [place] Trad/MX Commercial [id number] 2.840.1.776267.3.227.99.4595.7773.0 Family Dependent V [id number] EXCELLUS H [id number] Self [id number] MEDICARE A [id number] Self [id number] A EXCELLUS C [id number] Self [id number] EXCELLUS H [id number] Spouse [id number] [place] Trad/MX Medigap Part B [id number] 2.0.1.840013.3.227.99.4595.7773.0 Family Dependent Y [id number] [place] Trad/MX Medigap Part B [id number] 2.0.1.947962.3.227.99.4595.7773.0 Family Dependent Y [id number] [place] Trad/MX Commercial [id number] 2.0.1.738483.3.227.99.4595.7773.0 Family Dependent Y [id number] BS [place] Trad/MX Commercial [id number] 2.0.1.274403.3.227.99.4595.7773.0 Family Dependent Y [id number] BS [place] Trad/MX Medigap Part B [id number] 2.0.1.313506.3.227.99.4595.7773.0 Family Dependent Y [id number] [place] Trad/MX Commercial 2.0.1.860705.3. 227.99.4595.7773.0 Family Dependent [place] Trad/MX Medigap Part B [id number] 2.0.1.127779.3.227.99.4595.7773.0 Family Dependent Y [id number] [place] Trad/MX Commercial [id number] 2.0.1.225504.3.227.99.4595.7773.0 Family Dependent Y [id number] [place] Trad/MX Medigap Part B [id number] Family Dependent [id number] [place] Trad/MX Commercial [id number] 2.0.1.997834.3.227.99.4595.7773.0 Family Dependent Y [id number] Blue Cross Blue Shield P [id number] SELF [id number] Medicare C [id number] SELF [id number] A AARP U [id number] Self [id number] MEDICARE [id number] SP [id number] [facility] [id number] SP [id number] AARP O [id number] S [id number] MEDICARE C [id number] S [id number] [facility] OPTIONS [id number] SP [id number] [facility] [id number] SP [id number] [facility] [id number] SP [id number] [facility] Healthcare Commercial [id number] Family Dependent [id number] Medicare Medicare Primary [id number] Self [id number] [facility] Health Plans Commercial [id number] Family Dependent [id number] ANSI-Not a Secondary Insurance [id number] ANSI-Medicare Part B [id number] ANSI-Medicare Part B [id number] ANSI-Not a Secondary Insurance [id number] Medicare Medicare Primary [id number] 2.0.1.044364.3.227. 99.936.77706.0 Self [id number] [facility] [id number] 80 [id number] Medicare Medicare Primary [id number] 2..1.700101.3.227. [id number] Self [id number] [facility] O [id number] 80 [id number] ANSI-Medicare Part B [id number] ANSI-Not a Secondary Insurance [id number] Medicare Medicare Primary [id number] 2..1.823246.3.227. [id number] Self [id number] [facility] [id number] [facility] 80 [id number] MEDICARE [id number] SP [id number] A [facility] Health Plans Commercial [id number] 2..1.243349.3.227. [id number] Family Dependent [id number] Medicare Medicare Primary [id number] 2.0.1.560979.3.227. [id number] Self [id number] BS [facility] Part B [id number] Family Dependent Y [id number] Medicare Medicare Primary [id number] Self [id number] [facility] [facility] O [id number] S 80 [id number] MEDICARE C [id number] S [id number] A BS [facility] Medig[employer] Part B [id number] Family Dependent Y [id number] Medicare Medicare Primary [id number] Self [id number] [place] P[place] 302/307 [id number] 2 [id number] BS [facility] Medigap Part B [id number] Family Dependent Y [id number] Medicare Medicare Primary [id number] .[id number] Self [id number] [place] PPO 302/307 [id number] 2 [id number] BS [facility] Medigap Part B [id number] Family Dependent Y [id number] Medicare Medicare Primary [id number] .[id number] Self [id number] BS [facility] Med[facility] Part B [id number] Family Dependent Y [id number] Medicare Medicare Primary [id number] Self [id number] EXCELLUS BCBS B [id number] S [id number] BS [facility] Medigap Part B [id number] Family Dependent Y [id number] Medicare Medicare Primary [id number] Self [id number] BS [facility] Med[facility] Part B [id number] Family Dependent Y [id number] Medicare Medicare Primary [id number] Self [id number] BS [facility] Med[employer] Part B [id number] Family Dependent Y [id number] Medicare Medicare Primary [id number] Self [id number] BC[place] PPO 302/307 [id number] BS [facility] Medigap Part B [id number] Family Dependent Medicare Medicare Primary [id number] Self [facility] OPTIONS [id number] Problems, Conditions, and Diagnoses Code Display Name Description Problem Type Effective Dates Data Source(s) E55.9 Vitamin D deficiency, unspecified Vitamin D defi ciency, unspecified Diagnosis 01/26/2021 09:57:15 AM [facility] G25.2 Other specified forms of tremor Other specified forms of tremor Diagnosis 12/27/2020 09:50:18 AM [facility] neurology consult neurology consult Diagnosis 11/07/2020 10:52:00 PM [facility] G35 Multiple sclerosis Multiple sclerosis Diagnosis 0 05:47:48 PM [facility] G82.20 Paraplegia, unspecified Paraplegia, unspecified Diagno sis 08/31/2020 09:30:03 AM [facility] R25.1 Tremor, unspecified Tremor, unspecified Diagnosis 1 11/01/2019 08:59:49 AM EST [facility] R53.1 Weakness Weakness Diagnosis 08/31/2020 08:59:49 AM ES T [facility] Surgeries/Procedures Procedure Description Date Indications Data Source(s) DEBRIDEMENT NAIL ANY METHOD 07/06/2021 12:00:00 AM EDT [facility] DEBRIDEMENT NAIL ANY METHOD 04/17/2021 12:00:00 AM EDT [facility] ([facility] OFFICE OUTPATIENT VISIT 15 MINUTES 04/06/2021 12:00:00 AM EDT [facility] ([facility]) OFFICE OUTPATIENT VISIT 25 MINUTES 04/06/2021 12:00:00 AM EDT [facility] ([facility]) ELECTROMYOGRAPHY WITH NERVE CONDUCTION <td>ELECTROMYOG MORENO WITH NERVE CONDUCTION</td><td>Routine</td><td>03/02/2021 10:30 AM EDT</td><td> Secondary progressive multiple sclerosis</td><td> </td> 03/02/2021 10:30:00 AM EDT Secondary progressive multiple sclerosis [facility] Secondary progressive multiple sclerosis [facility] 20 Min 2020 12:00:00 AM EDT [facility] ([facility]) Chronic Care MGMT 20 Mins Clinical Staff Time Per Calendar [facility] 02/15/2021 12:00:00 AM EDT [facility] ([facility] ) Brief Emotional/Behav Assessment W/ Scoring Doc Per Standard Inst 02/14/2021 12:00:00 AM EDT [facility] ([facility] ) OFFICE OUTPATIENT VISIT 25 MINUTES 02/14/2021 12:00:00 AM EDT [facility] ([facility]) DEBRIDEMENT NAIL ANY METHOD 12/12/2020 12:00:00 AM EDT [facility] Trans Care SRV W/I 14D Of DC, Comm W/I 2 Dys Med Rec 11/25/2020 12:00:00 AM EST [facility] ([facility] ) DEBRIDEMENT NAIL ANY METHOD 6/> 08/24/2020 12:00:00 AM EST [facility] ([facility] Results ID Date Data Source [id number] 06/26/2021 01:07:58 PM EDT [facility] Name Value Range Interpretation Code Description Data Herlinda rce(s) Supporting Document(s) Progress Note [facility] [id number] lbm [file] q+[id number]/[id number]++1lx3kiQlhA6N+omfkI/vp of digital marketing/ [file] [id number] ID Date Data Source [id number] 06/26/2021 03:30:34 PM T [facility] Name Value Range Interpretation Code Description Data Herlinda rce(s) Supporting Document(s) Leukocytes [#/volume] in Blood by Automated count 4.9 10*3/uL 4-10 [facility] Erythrocytes [#/volume] in Blood by Automated count 4.33 10*6/uL 4.1- 5.3 [facility] Hemoglobin [Mass/volume] in Blood 13.8 g/dL 11.5-15.5 [facility] Hematocrit [Volume Fraction] of Blood by Automated count 40.2 % 3 6-45 [facility] Erythrocyte mean corpuscular volume [Entitic volume] by Auto mated count 93.0 fL 80-96 [facility] Erythrocyte mean corpuscular hemoglobin [Entitic mass] by Automated count 31.9 pg 27-33 [facility] Erythrocyte mean corpuscular hemoglobin concentration [Mass/volume] by Automated count 34.3 g/dL 32.0-36.0 [facility] Erythrocyte distribution width [Ratio] by Automated count 12.7 % 11.5-14.5 [facility] Platelets [#/volume] in Blood by Automated count 310 10*3/uL 150-400 [facility] Differential cell count method - Blood [facility] Neutrophils/100 leukocytes in Blood by Automated count 78 % [facility] Lymphocytes/100 leukocytes in Blood by Automated count 6 % [facility] Monocytes/100 leukocytes in Blood by Automated count 13 % [facility] Eosinophils/100 leukocytes in Blood by Automated count 2 % [facility] Basophils/100 leukocytes in Blood by Automated count 1 % [facility] Neutrophils [#/volume] in Blood by Automated count 3.85 10*3/uL 1.8-7 .0 [facility] Lymphocytes [#/volume] in Blood by Automated count 0.28 10*3/uL 1.2-4 .0 L [facility] Monocytes [#/volume] in Blood by Automated count 0.62 10*3/uL 0-0.8 [facility] Eosinophils [#/volume] in Blood by Automated count 0.10 10*3/uL 0-0.5 [facility] Basophils [#/volume] in Blood by Automated count 0.04 10*3/uL 0-0.2 [facility] Nucleated erythrocytes/100 leukocytes [Ratio] in Blood by Automated count 0 /100{WBCs} 0-0 [facility] ID Date Data Source [id number] 06/26/2021 03:35:47 PM EDT [facility] Name Value Range Interpretation Code Description Data Herlinda rce(s) Supporting Document(s) Albumin [Mass/volume] in Serum or Plasma by Bromocresol green (BCG) dye binding method 4.5 g/dL 3.5[facility]5.2 [facility] Bilirubin.total [Mass/volume] in Serum or Plasma 0.4 mg/dL <1.2 [facility] Bilirubin.direct [Mass/volume] in Serum or Plasma <0.3 [facility] Alkaline phosphatase [Enzymatic activity/volume] in Serum or Plasma 76 U/L 35-104 [facility] Aspartate aminotransferase [Enzymatic activity/volume] in Serum or Plasma 19 U/L <32 [facility] Alanine aminotransferase [Enzymatic activity/volume] in Seru m or Plasma 18 U/L <33 [facility] Protein [Mass/volume] in Serum or Plasma 6.4 g/dL 6.4-8.3 [facility] ID Date Data Source [id number] 02/14/2021 01:43:00 PM [facility]T [facility] Name Value Range Interpretation Code Description Data Herlinda rce(s) Supporting Document(s) Thyrotropin [Units/volume] in Serum or Plasma by Detec tion limit <= 0.05 mIU/L 1.46 uIU/mL 0.36-3.74 [facility] Thyroxine (T4) free [Mass/volume] in Serum or Plasma 1.14 ng/dL 0.76- 1.46 [facility] ID Date Data Source [id number] 02/14/2021 01:43:00 PM EDT [facility] ([facility]) Name Value Range Interpretation Code Description Data Herlinda rce(s) Supporting Document(s) Cholesterol [Mass/volume] in Serum or Plasma 209 mg/dL 131-200 [facility] ([facility]) Triglyceride [Mass/volume] in Serum or Plasma 90 mg/dL 30-150 [facility] ([facility]) Cholesterol in HDL [Mass/volume] in Serum or Plasma 57 mg/dL 35-60 [facility] ([facility]) Cholesterol in LDL [Mass/volume] in Serum or Plasma by calcu lation 134 CALC 50-159 [facility] ([facility]) ID Date Data Source [id number] 01/30/2021 03:06:55 PM EDT [facility] Name Value Range Interpretation Code Description Data Herlinda rce(s) Supporting Document(s) Angiotensin converting enzyme [Enzymatic activity/volu me] in Serum or Plasma 38 U/L 14-82 [facility] (NOTE)Performed At: [facility] [address] [id number] Finn MD Ph:[phone] ID Date Data Source [id number] 02/01/2021 03:17:52 PM [facility] Name Value Range Interpretation Code Description Data Herlinda rce(s) Supporting Document(s) Myelin Oligod Glycoprot Negative [facility] (NOTE)No informative autoantibodies were detected in this evaluation. A negative result does not preclude a diagnosis of an inflammatory EXERCISE PLANNER demyelinating disorder. ADDITIONAL INFORMATION This test was developed and its performance characteristics determined by [facility] in a manner consistent with CLIA requirements. This test has not been cleared or approved by the U.S. Food and Drug Administration.Test Performed by:[address] Director: Morris Cordova M.D. Ph.D.; CLIA# [id number] ID Date Data Source [id number] 02/03/2021 04:07:41 PM [facility] Value Range Interpretation Code Description Data Herlinda rce(s) Supporting Document(s) Methylmalonate [Moles/volume] in Serum or Plasma 156 nmol/L 0-378 [facility] Disclaimer [facility] (NOTE)This test was developed and its pe rformance characteristicsdetermined by [facility]. It has not been cleared or approvedby the Food and Drug Administration.Performed At: [facility] [id number] [place], [place] [id number] Lombardo MD Ph:[phone] ID Date Data Source [id number] 02/01/2021 02:12:57 PM [facility] Value Range Interpretation Code Description Data Herlinda rce(s) Supporting Document(s) Aquaporin 4 receptor IgG Ab [Presence] in Serum or Plasma Negative [facility] (NOTE)Recommend repeat testing in 6 ariana hs if clinical suspicion is high. Negative result can occur in the setting of immunosuppression. ADDITIONAL INFORMATION This test was developed and its performance characteristics determined by [facility] in a manner consistent with CLIA requirements. This test has not been cleared or approved by the U.S. Food and Drug Administration.Test Performed by:[address] [id number] Director: Morris Cordova M.D. Ph.D.; CLIA# [id number] ID Date Data Source [id number] 02/07/2021 03:07:03 PM EDT [facility] Name Value Range Interpretation Code Description Data Herlinda rce(s) Supporting Document(s) Index Value 0.35 [facility] MAYRA virus Ab [Presence] in Serum or Plasma by Immunoassay [facility] (NOTE)Results are Indeterminate.Index in terpretive criteria: <0.20 negative 0.20-0.40 indeterminate >0.40 positiveNegativeComment(NOTE)Positive: Antibodies to MAYRA virus (JCV) detected indicating the patient has been exposed to JCV at an undetermined timeNegative: Antibodies to JCV not detectedPerformed At: [facility] [id number] [place], [place] [id number] Jon M MD Ph:[phone](NOTE)Negative: Antibodies to JCV not detected.Indeterminate: Low level reactivity detected, see Inhibition Assay result to follow for the final antibody result.Positive: Antibodies to MAYRA virus (JCV) detected indicating the patient has been exposed to JCV at an undetermined time.The STRATIFY JCV Antibody Test is an enzyme-linkedimmunosorbent assay (DAYNA) designed to detect JCV antibodiesto help identify individuals who have been exposed to thevirus. Samples with low level reactivity in the detectionassay are retested in a confirmation (inhibition) assay toconfirm presence or absence of JCV-specific antibodies.Retrospective analyses of post marketing data from varioussources, including observational studies and spontaneousreports obtained worldwide, suggest that the risk ofdeveloping PML may be associated with relative levels ofserum anti-JCV antibody as measured by anti-JCV antibodyindex.1 .1TYSABRI (natalizumab) [place] Prescribing Information. ID Date Data Source [id number] 01/26/2021 02:04:27 PM [facility] Value Range Interpretation Code Description Data Herlinda rce(s) Supporting Document(s) Hepatitis A virus IgM Ab [Presence] in Serum or Plasma by Im munoassay Non Reactive [facility] No acute infection, susceptible to infec tion. Hepatitis B virus core IgM Ab [Presence] in Serum or Plasma by Immunoassay Non Reactive [facility] IgM antibodies to HBc were not detected, does not exclude the possibility of exposure to HBV. Hepatitis C virus Ab [Presence] in Serum or Plasma by Immuno assay Non Reactive [facility] No serological evidence of active infect ion. If recent exposure is suspected, test for HCV RNA. Hepatitis B virus surface Ag [Presence] in Serum or Plasma b y Immunoassay Non Reactive [facility] No active or previous infection. Suscept ible to infection. ID Date Data Source [id number] 01/26/2021 02:04:27 PM [facility] Value Range Interpretation Code Description Data Herlinda rce(s) Supporting Document(s) Folate [Mass/volume] in Serum or Plasma 11.70 ng/mL >4.77 [facility] ID Date Data Source [id number] 01/26/2021 02:04:27 PM [facility] Value Range Interpretation Code Description Data Herlinda rce(s) Supporting Document(s) Calcidiol [Mass/volume] in Serum or Plasma 25 ng/mL >30 L [facility] ID Date Data Source [id number] 01/26/2021 02:24:11 PM [facility] Value Range Interpretation Code Description Data Herlinda rce(s) Supporting Document(s) Hepatitis B virus surface Ab [Units/volume] in Serum or Plas ma by Immunoassay >11.4 L [facility] Non ReactiveNo active or previous infect ion. Susceptible to infection. ID Date Data Source [id number] 01/27/2021 02:19:52 PM [facility] Value Range Interpretation Code Description Data Herlinda rce(s) Supporting Document(s) Nuclear Ab Pattern Homogenous [Titer] in Serum <80 [facility] Nuclear Ab pattern.speckled [Titer] in Serum <80 [facility] Nuclear Ab pattern.rim [Titer] in Serum <80 [facility] Nuclear Ab pattern.nucleolar [Titer] in Serum <80 [facility] ID Date Data Source [id number] 01/27/2021 11:57:46 AM [facility] Value Range Interpretation Code Description Data Herlinda rce(s) Supporting Document(s) Cardiolipin IgM Ab [Interpretation] in Serum 4.2 U/mL <20.0 [facility] Negative results do not rule out Antipho spholipid syndrome. Additional APL testing should be considered. Cardiolipin IgG Ab [Interpretation] in Serum <20.0 [facility] Negative results do not rule out Antipho spholipid syndrome. Additional APL testing should be considered. ID Date Data Source [id number] 01/27/2021 11:57:46 AM [facility] Value Range Interpretation Code Description Data Herlinda rce(s) Supporting Document(s) Beta 2 glycoprotein 1 IgM Ab [Units/volume] in Serum 1.7 U/mL <20.0 [facility] Negative results do not rule out Antipho spholipid syndrome. Other APL testing should be considered. Beta 2 glycoprotein 1 IgG Ab [Units/volume] in Serum <20.0 [facility] Negative results do not rule out Antipho spholipid syndrome. Other APL testing should be considered. ID Date Data Source [id number] 02/01/2021 07:02:33 AM [facility] Value Range Interpretation Code Description Data Herlinda rce(s) Supporting Document(s) Varicella zoster virus IgG Ab [Presence] in Serum by Immunoassay 5. 22 {ISR} [facility] PositiveIndicates presence of detectable IgGantibody to Varicella-Zoster Virus bythe DAYNA test. Indicative of current orprevious infection. ID Date Data Source [id number] 01/26/2021 01:01:13 PM [facility] Name Value Range Interpretation Code Description Data Herlinda rce(s) Supporting Document(s) Leukocytes [#/volume] in Blood by Automated count 4.6 10*3/uL 4-10 [facility] Erythrocytes [#/volume] in Blood by Automated count 4.51 10*6/uL 4.1- 5.3 [facility] Hemoglobin [Mass/volume] in Blood 14.0 g/dL 11.5-15.5 [facility] Hematocrit [Volume Fraction] of Blood by Automated count 42.6 % 3 6-45 [facility] Erythrocyte mean corpuscular volume [Entitic volume] by Auto mated count 94.4 fL 80-96 [facility] Erythrocyte mean corpuscular hemoglobin [Entitic mass] by Automated count 31.1 pg 27-33 [facility] Erythrocyte mean corpuscular hemoglobin concentration [Mass/volume] by Automated count 32.9 g/dL 32.0-36.0 [facility] E[facility] distribution width [Ratio] by Automated count 12.8 % 11.5-14.5 [facility] Platelets [#/volume] in Blood by Automated count 305 10*3/uL 150-400 [facility] Differential cell count method - Blood [facility] Neutrophils/100 leukocytes in Blood by Automated count 81 % [facility] Lymphocytes/100 leukocytes in Blood by Automated count 4 % [facility] Monocytes/100 leukocytes in Blood by Automated count 12 % [facility] Eosinophils/100 leukocytes in Blood by Automated count 2 % [facility] Basophils/100 leukocytes in Blood by Automated count 1 % [facility] Neutrophils [#/volume] in Blood by Automated count 3.73 10*3/uL 1.8-7 .0 [facility] Lymphocytes [#/volume] in Blood by Automated count 0.16 10*3/uL 1.2-4 .0 L [facility] Monocytes [#/volume] in Blood by Automated count 0.55 10*3/uL 0-0.8 [facility] Eosinophils [#/volume] in Blood by Automated count 0.10 10*3/uL 0-0.5 [facility] Basophils [#/volume] in Blood by Automated count 0.04 10*3/uL 0-0.2 [facility] Nucleated erythrocytes/100 leukocytes [Ratio] in Blood by Automated count 0 /100{WBCs} 0-0 [facility] ID Date Data Source [id number] 01/26/2021 01:39:21 PM [facility] Name Value Range Interpretation Code Description Data Herlinda rce(s) Supporting Document(s) Cobalamin (Vitamin B12) [Mass/volume] in Serum or Plasma 521 pg/ml 2 11-946 [facility] ID Date Data Source [id number] [facility] Interpretation Code Description Data Herlinda rce(s) Supporting Document(s) Bilirubin.direct [Mass/volume] in Serum or Plasma <0.3 [facility] ID Date Data Source [id number] 01/26/2021 01:39:21 PM [facility] Value Range Interpretation Code Description Data Herlinda rce(s) Supporting Document(s) Ceruloplasmin [Mass/volume] in Serum or Plasma 22 mg/dl 16-45 [facility] ID Date Data Source [id number] 01/26/2021 01:39:21 PM [facility] Value Range Interpretation Code Description Data Herlinda rce(s) Supporting Document(s) IgG [Mass/volume] in Serum or Plasma 436 mg/dL 700-1600 L [facility] IgA [Mass/volume] in Serum or Plasma 164 mg/dL 70-400 [facility] IgM [Mass/volume] in Serum or Plasma 88 mg/dL 30-230 [facility] ID Date Data Source [id number] 01/26/2021 01:39:21 PM [facility] Value Range Interpretation Code Description Data Herlinda rce(s) Supporting Document(s) Albumin [Mass/volume] in Serum or Plasma by Bromocresol green (BCG) dye binding method 4.4 g/dL 3.5-5.2 [facility] Bilirubin.total [Mass/volume] in Serum or Plasma 0.4 mg/dL <1.2 [facility] Calcium [Mass/volume] in Serum or Plasma 9.7 mg/dL 8.8-10.2 [facility] Chloride [Moles/volume] in Serum or Plasma 105 mmol/L 98-107 [facility] Creatinine [Mass/volume] in Serum or Plasma 0.59 mg/dL 0.50-0.90 [facility] Glucose [Mass/volume] in Serum or Plasma 95 mg/dL 70-140 [facility] Alkaline phosphatase [Enzymatic activity/volume] in Serum or Plasma 85 U/L 35-104 [facility] Potassium [Moles/volume] in Serum or Plasma 4.4 mmol/L 3.4-5.1 [facility] Protein [Mass/volume] in Serum or Plasma 6.4 g/dL 6.4-8.3 [facility] Sodium [Moles/volume] in Serum or Plasma 141 mmol/L 136-145 [facility] Aspartate aminotransferase [Enzymatic activity/volume] in Serum or Plasma 18 U/L <32 [facility] Urea nitrogen [Mass/volume] in Serum or Plasma 14 mg/dL 8-23 [facility] Osmolality of Serum or Plasma by calculation 292 mosm/kg 275-300 [facility] Creatinine/Urea nitrogen [Mass Ratio] in Serum or Plasma 24 [facility] Bicarbonate [Moles/volume] in Serum 27 mmol/L 22-29 [facility] Alanine aminotransferase [Enzymatic activity/volume] in Seru m or Plasma 14 U/L <33 [facility] Anion gap 3 in Serum or Plasma 9 mmol/L 8-15 [facility] Glomerular filtration rate/1.73 sq M pre dicted among non-blacks [Volume Rate/Area] in Serum or Plasma by Creatinine-based formula (MDRD) >6 0 [facility] Glomerular filtration rate/1.73 sq M pre dicted among blacks [Volume Rate/Area] in Serum or Plasma by Creatinine-based formula (MDRD) >60 [facility] ID Date Data Source [id number] 01/27/2021 10:30:17 AM [facility] Name Value Range Interpretation Code Description Data Herlinda rce(s) Supporting Document(s) Lupus anticoagulant neutralization plate let [Time] in Platelet poor plasma by Coagulation assay 2.3 sec <8.0 [facility] ID Date Data Source [id number] 01/31/2021 05:06:18 AM [facility] Value Range Interpretation Code Description Data Herlinda rce(s) Supporting Document(s) Copper [Mass/volume] in Serum or Plasma 98 ug/dL 80-158 [facility] (NOTE)This test was developed and its pe rformance characteristicsdetermined by [employer]. It has not been cleared or approvedby the Food and Drug Administration. Detection Limit = 5 Please note reference interval changePerformed At: Lab[address] [id number] Lombardo MD Ph:[phone] ID Date Data Source [id number] 01/31/2021 05:06:18 AM [facility] Value Range Interpretation Code Description Data Herlinda rce(s) Supporting Document(s) Zinc [Mass/volume] in Serum or Plasma 85 ug/dL 44-115 [facility] (NOTE)This test was developed and its pe rformance characteristicsdetermined by [employer]. It has not been cleared or approvedby the Food and Drug Administration. Detection Limit = 5 Please note reference interval changePerformed At: Lab[address] [id number] Sanjai MD Ph:[phone] ID Date Data Source [id number] 01/27/2021 01:59:13 PM [facility] Value Range Interpretation Code Description Data Herlinda rce(s) Supporting Document(s) Sjogrens syndrome-A extractable nuclear Ab [Units/volume] in Serum by Immunofluorescence 5 [AU]/mL [address] [place] [address] Sjogrens syndrome-B extractable nuclear Ab [Units/volume] in Serum by Immunofluorescence 6 [AU]/mL [address] [place] [address] Gomez extractable nuclear Ab [Units/volume] in Serum b y Immunofluorescence 9 [AU]/mL [address] [place] [address] Ribonucleoprotein extractable nuclear Ab [Units/volume] in Serum by Immunofluorescence 12 U/ML [address] [place] [address] SCL-70 extractable nuclear Ab [Units/volume] in Serum 7 [AU]/mL [address] [place] [address] Chen-1 extractable nuclear Ab [Units/volume] in Serum by Immunofluorescence 10 [AU]/mL [address] [place] [address] DNA double strand Ab [Units/volume] in Serum by Immunofluore scence 0 [IU]/mL [address] [place] [address] Centromere Ab [Units/volume] in Serum 7 [AU]/mL [address] [place] [address] Histone IgG Ab [Units/volume] in Serum 6 [AU]/mL [address] [place] [address] ID Date Data Source [id number] 01/27/2021 09:58:20 AM [facility] Value Range Interpretation Code Description Data Herlinda rce(s) Supporting Document(s) Reference lab test name [facility] Reference lab name [Identifier] [facility] Service comment [facility] ID Date Data Source [id number] 01/26/2021 02:08:59 PM EDT [facility] Value Range Interpretation Code Description Data Herlinda rce(s) Supporting Document(s) HIV 1+2 Ab+HIV1 p24 Ag [Presence] in Serum or Plasma by Immu noassay Non Reactive [facility] Negative for HIV-1 p24 antigenand HIV-1/ HIV-2 antibodies. Nolaboratory evidence of HIVinfection. ID Date Data Source [id number] 01/26/2021 01:14:21 PM EDT [facility] Name Value Range Interpretation Code Description Data Herlinda rce(s) Supporting Document(s) Homocysteine [Moles/volume] in Serum or Plasma 8.5 umol/L <15.0 [facility] ID Date Data Source [id number] 01/26/2021 11:38:53 AM EDT [facility] Name Value Range Interpretation Code Description Data Herlinda rce(s) Supporting Document(s) Progress Note [facility] TNPJZq4iCiSZTgHf18/UOHdlBGBhs0KmFLotNDg8KTcqHFMbH2JySAN5iK2xLKJ9GEnLWsXgXtIeQYL1 lbm [file] j5UVw6B3tv6bDROIY0dsJVB7fZwVCb2oRoTwzayuLi/A60Dr7+ovCBMR5tyIfH3lrNNmgQYHSHqj+Josué [file] INSTRUCTOR PILOT/5VLxampJRFixGIGUYRy8uMXJzOnFA+iWtpaFA5N [file] ICAgICAgICAgICAgICAgICAgICAgICAgICAgICAgICAgICAgICAgICAgICAgICAgICAgICAgICAgICAN CiAgICAgICAgICAgICAgICAgICAgICAgICAgICAgIC AgICAgICAgICAgICAgICAgICAgICAgICAgICAgICAgICAgICAgICAgICAgICAgICAgICAgICAgICAgIC AgICAgICAgICANCiAgICAgICAgICAgICAgICAgICAgICAgICAgICAgICAgICAgICAgICAgICAgICAgIC AgICAgICAgICAgICAgICAgICAgICAgICAgICAgICAg ICAgICAgICAgICAgICAgICAgICANCiAgICAgICAgICAgICAgICAgICAgICAgICAgICAgICAgICAgICAg ICAgICAgICAgICAgICAgICAgICAgICAgICAgICAgICAgICAgICAgICAgICAgICAgICAgICAgICAgICAg ICANCiAgICAgICAgICAgICAgICAgICAgICAgICAgIC AgICAgICAgICAgICAgICAgICAgICAgICAgICAgICAgICAgICAgICAgICAgICAgICAgICAgICAgICAgIC AgICAgICAgICAgICANCiAgICAgICAgICAgICAgICAgICAgICAgICAgICAgICAgICAgICAgICAgICAgIC AgICAgICAgICAgICAgICAgICAgICAgICAgICAgICAg ICAgICAgICAgICAgICAgICAgICAgICANCiAgICAgICAgICAgICAgICAgICAgICAgICAgICAgICAgICAg ICAgICAgICAgICAgICAgICAgICAgICAgICAgICAgICAgICAgICAgICAgICAgICAgICAgICAgICAgICAg ICAgICANCiAgICAgICAgICAgICAgICAgICAgICAgIC AgICAgICAgICAgICAgICAgICAgICAgICAgICAgICAgICAgICAgICAgICAgICAgICAgICAgICAgICAgIC AgICAgICAgICAgICAgICANCiAgICAgICAgICAgICAgICAgICAgICAgICAgICAgICAgICAgICAgICAgIC AgICAgICAgICAgICAgICAgICAgICAgICAgICAgICAg ICAgICAgICAgICAgICAgICAgICAgICAgICANCiAgICAgICAgICAgICAgICAgICAgICAgICAgICAgICAg ICAgICAgICAgICAgICAgICAgICAgICAgICAgICAgICAgICAgICAgICAgICAgICAgICAgICAgICAgICAg ICAgICAgICANCjw/pCAiB0jtxYBdecP7Y1knDp4RVt 2SRG2nb5TiEHHdVXlsuxGwUivRYsExFRDtCstUOfu4JSqmJJ7FkRBnR2RaW7BxBSseEX6RFULmQXWlaN ZmDXZbYUOvMsG5ZHGpXZdsTH5DhYWlOEgcDKFhGSWfGjDsXXCsBETvGCMqZHYgKYYKEEHdPBUgMkTyUQ MiJHZuJV7BFPBhE229osLxJh7OKy9AGqIzFD4pko2A AdZyIBVmYcnQSch4EWvjYT4OvSDlyTJlOdHmZNZPYiRqE5bbw1NpWwHeAOWDLIquFX2Vn8AkrDTuXNe+ Td2KYH5wf6EwXApcWfXyWH2ano1HJLnEOhDnA5BfhHtfXDYom1qeIVBwXB3awOUzJEJ3CDLxtcU8ZZYx PAQGcpL6WCTQLCRzhXO6PtQuFmKzEVHiDYa8FLUZUF aDTfGjI1Maz7WmMcU1OSDjZzIjHUtsLVMtVtG2RZ14mXrkZY7QTOMxIQHoOY15PPW1RDDuFo0ZSl5JVl IjBJ1dlf2RWznlBBWtDsySPlz4SJhoBG6PjKVnK9TgmMBuy2fFVaJrN0MUUKYlAPFkGo7XCXAtQfCsME RjWQxeDU0mIIOlFJKCvSechgY3VF9PQV7wisMwAL6V UwTfKa1mNu2YJwBqW9AgP1ChDNPyETXDXElxRU6IPNrlWP7yFD3Dy3BToLJbpP1rfv3HMXUdEJFrGkrj on1WKdemP6V7rWfhPPIkYhEhRMIJENzpQT5VBFReRKQ5CRFcEXIsYLFDSpFiG76mHC5QC2Umb41yIoC8 ISKgQdSsPNbbBW90iGgxhrPnxWLebVrtQR5XOa0+DQ ysrhXbKfnDEqfaNTJEByGcBpzNCuKjRLEjAWTxIJXbMoI9ZxMaKy1KNDKxLXFhNNWgXsMnYTIjJCVkGH ffUUGtNFQ1FQR2XXGgDZVoXV4FAbUhMQNlZZOhCqroLSMyZFAhas8ZMWLbHNWcKSZ1XpMbJKTdJRDxLF odWXRzUTAtZOagBULmOEXxFJ0KFoKvWGIgMMJ2RWHg UYAzSGAjxm8JCTXpQGPgRhJnQoOxLIDoCBMmYNveDSHuNWZ1FDKoUBKbBXItYX6IOuIaNMFoZEevMGGi HNJqQEFmpp7QVFPfPNXqANX7LAOpHWSxZTZbTTbePTViPTD6XBK6KIBlAIRpJS7IMhEuZBPxOVBkTqDi LBHvQGUler7DECKaPIDzPBP3ZqSaWWEhVPBwFIktJG GeOHQ0PzmhKQXrHKHdCC2HSrBuUNQfHiE1HxQxDZAeDFWybr8SCWCpWTVvWPo9KMSsVXYqJIXzQMuiTY AbOEEbFwPqGIBrJSErEB4JRpRpCUYxRrX9YAbmQNWcZRXzml6QVJNhXDWyReE7NEAeGDRyWOKsSAkyTZ XgQPRtJTI5YUHgURFuSN9HPlBiUGKaGhWbEOJfFAQx OGFzbt2PZQKhNMGsLkZtGMViJYItYZCuRLqhNNExNMX2MZU6HRQfGUZaQZ1OVhHvEJQgNfUrMQIjIEGl ZIEnfv6TIDZmQVOfJTH9JySzSCLsZUJiYNfcPTVwEOY1HhCpRQMaEFXzYM1HByYaXDIpUuD9UTpcHEHt BCFdxd7QUTHeZDEeXyqwPdJqRGLaRZVtOHfeDLDsHI W7SWX8JBMvHKLcMF7AHxDoNXKhPnivMIApEDMtJUJwin5WNDNyOPLdSKWlJVDjBCWoHRNrBZoeQPOiYU E1QsK3JSHwZEZjQR3HEiKnIMHeSzabSUTxHBAgWYRxev6CGTQeRIYjYAfbYUTwJSFcZTMyNWnaRPMgKF KhEyo1VZPuFEBcBA2KGuVgRZQmBTFeMhTaMJNpQMXh dp8HTSYtEYV8FFLuXAYiEHWdHYQyFAx8qhFtxMWuJRu3HQ4CV6MzzoRzHimODe6Qb881YAC5BNFhNj1Y F7jcHh8qSBMcWWASAq0YYFn2NXMpQDR7LIFgBXGfEYa9XrG3GxF3XxRnAIBmKwU8JGJ+OPh2DySkDMqz SbN5WXXxTPt5ZPHtTRxpIWGzMmSxTGu5Am6vIFONLn8+ZXuivXKxvRlqORDSArZlCzQqAIcbYFCCIb6X ID Date Data Source [id number] 02/01/2021 01:38:00 PM [facility] Molecular Genetics ReportName: Mihir CHIMRN: [id number] Number: [id number] Date: 01/26/2021 00:00Received Date: 01/26/2021 14:29Physician(s): JORY DOYLE MD MCGRAW, COREY A, MDSpecimen(s) ReceivedA: Peripheral Blood[facility] for [id number] REQUESTED/PERFORMED: CYP2C9 to LabcorpCOMMENTS:This is a duplicate order. This study was previously performed with [facility]. Results from the earlier study can be found in [facility] under theMedia tab. tjm/kgElectronically Signed By Hiram Gomez, PhD Attending Pathologist 02/01/2021 13:38:11 Name Value Range Interpretation Code Description Data Herlinda rce(s) Supporting Document(s) ID Date Data Source [id number] 01/13/2021 08:18:09 AM EDT [facility] Name Value Range Interpretation Code Description Data Herlinda rce(s) Supporting Document(s) Progress Note [facility] SGCZCd5aBeWZUpDy63/IQVylTVAfi9UqEIanLSz3WTvgLSCnC2TaECP4zF4dHDM9YQfNJeBnSeHcCCZe lbm [file] XSANCj4+AGzllOAgoZtbLSIFReMoXVX0UCzbIYYMTq0R ID Date Data Source [id number] 01/13/2021 08:18:04 AM EDT [facility] Name Value Range Interpretation Code Description Data Herlinda rce(s) Supporting Document(s) Progress Note [facility] NHUUBt4sCsMNMhQh47/WONvgQQSjx7QsDYsoKOl2BRifCIDzB2JvYVM4bJ7dLHA0ZZeDFgXcImRpUPUs lbm [file] Hqd3VqM1C7CvWZKcXHFdFyLbSC1COy5QApU1PVI8fQWhGz8EOYswNLMOYpWgUF7CPDm= ID Date Data Source [id number] 11/07/2020 09:33:00 PM EST [facility] ([facility] Name Value Range Interpretation Code Description Data Herlinda rce(s) Supporting Document(s) Color, Urine RFX Laboratory test result [facility] ([facility]) Appearance, Urine RFX Laboratory test result [facility] ([facility]) Specific [place] Ur Auto RFX 1.004 1.002-1.035 [facility] ([facility]) PH,Urine RFX 7.0 units 5.0-9.0 [facility] ([facility]) Protein, Urine Auto RFX [facility] Glucose, Urine (Ua) Auto RFX Laboratory test result [facility] ([facility]) Urobilinogen, Urine Auto RFX 0.2 mg/dL 0.0-2.0 [facility] ([facility]) Ketone, Urine Auto RFX Laboratory test result [facility] Nitrite, Urine Auto RFX Laboratory test result [facility] ([facility]) Bilirubin, Urine Auto RFX Laboratory test result [facility] Blood, Urine Blood RFX Laboratory test result [facility] ([facility]) Leukocyte Esterase Ur Auto RFX Laboratory test result [facility]) WBC, Urine Auto RFX 0 /HPF 0-3 [facility] ([facility]) RBC, Urine Auto RFX 0 /HPF 0-3 [facility] ([facility] Bacteria, Urine Auto RFX Laboratory test result [facility] ([facility]) Squam Epithelial Cell Ur Aurfx 0 /HPF 0-6 [facility] Hyaline Cast, Urine Auto RFX 0 /LPF 0-1 [facility] ([facility]) ID Date Data Source [id number] 11/07/2020 07:19:00 PM EST [facility] ([facility]) Name Value Range Interpretation Code Description Data Herlinda rce(s) Supporting Document(s) Influenza A Amplification Laboratory test result [facility] ([facility]) Negative results do not preclude influen za or RSV virus infection and should not be used as the sole basis for treatment or other patient management decisions. Influenza B Amplification Laboratory test result [facility] Negative results do not preclude influen za or RSV virus infection and should not be used as the sole basis for treatment or other patient management decisions. RSV Amplification Laboratory test result [facility] Negative results do not preclude influen za or RSV virus infection and should not be used as the sole basis for treatment or other patient management decisions. Laboratory test finding (navigational concept) Laboratory test result [facility] A false negative result may occur if a s pecimen is improperly collected, transported or handled. False negative results may also occur if inadequate numbers of organisms are present in the specimen. As with any molecular test, mutations within the target regions of [employer] SARS-CoV-2 could affect primer and/or probe binding resulting in failure to detect the presence of virus. This test cannot rule out diseases caused by other bacterial or viral pathogens. DISCLAIMER: Testing was performed using the [employer] SARS-CoV-2 test. This test was developed and its performance characteristics determined by [employer]. This test has not been FDA cleared or approved. This test has been authorized by FDA under an Emergency Use Authorization (EUA). This test is only authorized for the duration of time the declaration that circumstances exist justifying the authorization of the emergency use of in vitro diagnostic tests for detection of SARS-CoV-2 virus and/or diagnosis of COVID-19 infection under section 564(b)(1) of the Act, 21 U.S.C. 360bbb-3(b)(1), unless the authorization is terminated or revoked sooner. ID Date Data Source [id number] 11/07/2020 07:19:00 PM EST [facility] ([facility]) Name Value Range Interpretation Code Description Data Herlinda rce(s) Supporting Document(s) Thyrotropin [Units/volume] in Serum or Plasma by Detec tion limit <= 0.05 mIU/L 2.810 uIU/ML 0.358-3.740 [facility] ([facility] Thyroxine (T4) free [Mass/volume] in Serum or Plasma 1.51 ng/dL 0.76- 1.46 [facility] ([facility]) ID Date Data Source [id number] 11/07/2020 07:19:00 PM EST [facility] ([facility] Name Value Range Interpretation Code Description Data Herlinda rce(s) Supporting Document(s) Glucose, Fasting 86 mg/dL 70-100 [facility] ([facility]) Creatinine For GFR 0.52 mg/dL 0.55-1.30 [facility] ([facility]) Blood Urea Nitrogen 15 mg/dL 7-18 [facility] ([facility]) Sodium Level 139 meq/L 136-145 [facility] ([facility]) Glomerular Filtration Rate [facility]) <content>Units are mL/min/1.73 m2</content>
<content></content>
<content>Chronic Kidney Disease Staging per NKF:</content>
<content></content>
<content>Stage I & II GFR >=60 Normal to Mildly Decreased</content>
<content>Stage III GFR 30- 59 Moderately Decreased</content>
<content>Stage IV GFR 15-29 Severely Decreased</content>
<content>Stage V GFR <15 Very Little GFR Left</content>
<content>ESRD GFR <15 on [employer]</content>
<content></content> Potassium Serum 4.2 meq/L 3.5-5.1 [facility] ([facility]) Chloride Level 102 meq/L 98-107 [facility] ([facility]) Carbon Dioxide Level 29 meq/L 21-32 [facility] ([facility]) Anion Gap 8 meq/L 8-16 [facility] ([facility]) Calcium Level 9.1 mg/dL 8.8-10.2 [facility] ([facility]) ID Date Data Source [id number] 11/07/2020 07:19:00 PM EST [facility] ([facility]) Name Value Range Interpretation Code Description Data Herlinda rce(s) Supporting Document(s) Ast/Sgot 9 U/L 7-37 [facility] ([facility]) Alt/SGPT 31 U/L 12-78 [facility] ([facility]) Alkaline Phosphatase 88 U/L 45-117 [facility] ([facility]) Bilirubin,Total 0.6 mg/dL 0.2-1.0 [facility] ([facility]) Bilirubin,Direct 0.2 mg/dL 0.0-0.2 [facility] ([facility]) Total Protein 6.1 GM/DL 6.4-8.2 [facility] ([facility]) Albumin/Globulin Ratio 1.4 1.2-2.2 [facility] ([facility]) Albumin 3.6 GM/DL 3.2-5.2 [facility] ([facility]) ID Date Data Source [id number] 11/07/2020 07:19:00 PM EST [facility] ([facility]) Name Value Range Interpretation Code Description Data Herlinda rce(s) Supporting Document(s) CPK Creatine Phosphokinase 26 U/L 26-192 [facility] ([facility]) MB/CK Relative Index 3.85 [facility] <content>DIAGNOSIS CRITERIA</content>
<content>MMB ng/ml Relative Index (RI)</content>
<content>NON-AMI < or = 5 N/A</content>
<content>[place] ZONE > 5 < or = 4</content>
<content>AMI > 5 > 4</content>
<content></content> CK-MB Value Mass Laboratory test result [facility] ([facility]) Troponin I Laboratory test result [facility] ([facility]) <content>Troponin I Reference Interval f or Siemens [place] LOCI:</content>
<content></content>
<content>99th Percentile= 0.00-0.045 ng/ml</content>
<content></content>
<content>Risk Stratification:</content>
<content><= 0.10 ng/ml Decreased Risk for Adverse Clinical</content>
<content>Events.</content>
<content>0.10-1.50 ng/ml Increased Risk for Adverse Clinical</content>
<content>Events. Evaluation of additional</content>
<content>criterion and/or repeat testing in 2-6</content>
<content>hours is suggested to rule out myocardial</content>
<content>damage.</content>
<content>>= 1.50 ng/ml Indicative of Myocardial Injury.</content>
<content></content> ID Date Data Source [id number] 11/07/2020 07:19:00 PM EST [facility] ([facility] Name Value Range Interpretation Code Description Data Herlinda rce(s) Supporting Document(s) aPTT in Blood by Coagulation assay 25.8 s 24.2-38.5 [facility] ([facility]) ID Date Data Source [id number] 11/07/2020 07:19:00 PM EST [facility] ([facility]) Name Value Range Interpretation Code Description Data Herlinda rce(s) Supporting Document(s) Red Blood Count 4.72 10 4.00-5.40 [facility] ([facility]) White Blood Count 10.0 10 4.0-10.0 [facility] ([facility]) Hemoglobin 14.5 g/dL 12.0-15.5 [facility] ([facility] Hematocrit 43.1 % 36.0-47.0 [facility] ([facility]) Mean Corpuscular Hemoglobin 30.7 pg 27.0-33.0 [facility] ([facility]) Mean Corpuscular Volume 91.3 fl 80.0-96.0 [facility] ([facility]) Mean Corpuscular HGB Conc 33.6 g/dL 32.0-36.5 [facility] ([facility]) Red Cell Distribution Width 11.9 % 11.5-14.5 [facility] ([facility]) Neutrophils % 78.2 % 36.0-66.0 [facility] ([facility]) Platelet Count, Automated 315 10 150-450 [facility] ([facility]) [place] % 9.8 % 0.0-8.0 [facility]) Lymph % 7.2 % 24.0-44.0 [facility] Eos % 3.3 % 0.0-3.0 [facility]) Baso % 0.3 % 0.0-1.0 [facility] Immature Granulocyte % 1.2 % 0-3.0 [facility] ([facility]) Nucleated Red Blood Cell % 0.0 % 0-0 [facility] ([facility]) Lymph # 0.7 10 1.5-5.0 [facility]) Neutrophils # 7.9 10 1.5-8.5 [facility] ([facility]) Eos # 0.3 10 0.0-0.5 [facility] [place] # 1.0 10 0.0-0.8 [facility]) Baso # 0.0 10 0.0-0.2 [facility]) ID Date Data Source [id number] 11/07/2020 07:19:00 PM EST [facility] Name Value Range Interpretation Code Description Data Herlinda rce(s) Supporting Document(s) SARS coronavirus 2 RNA [Presence] in Res piratory specimen by TOO with probe detection NEGATIVE [facility] This lab was ordered by [facility] a nd reported by [employer]. ID Date Data Source [id number] 10/26/2020 02:27:04 PM EST [facility] Name Value Range Interpretation Code Description Data Herlinda rce(s) Supporting Document(s) Progress Note [facility] JSVFBi2oYoVHBfWh42/HZNveWRQst4FiQYurIMe9XBvcZSOeH8GfPVD6aJ2aAIL0WTdYSnZeLzIlDdRu [facility] [file] manufactured buildings repairer+ZiM6qmwXBRlDIze9GeY6wYvKZJhieENorcnC6HwoActFfkEKLI2XcE+OV+4DXgLeoGBIHRgFe+Xo [file] AgICAgICAgICAgICAgICAgICAgICAgICAgICAgICAgICAgICAgICAgICAgICAgICAgICAgICAgICAgIC AgICAgICAgICAgICAgICAgICAgICAgICAgICAgDQog ICAgICAgICAgICAgICAgICAgICAgICAgICAgICAgICAgICAgICAgICAgICAgICAgICAgICAgICAgICAg ICAgICAgICAgICAgICAgICAgICAgICAgICAgICAgICAgICAgICAgDQogICAgICAgICAgICAgICAgICAg ICAgICAgICAgICAgICAgICAgICAgICAgICAgICAgIC AgICAgICAgICAgICAgICAgICAgICAgICAgICAgICAgICAgICAgICAgICAgICAgICAgDQogICAgICAgIC AgICAgICAgICAgICAgICAgICAgICAgICAgICAgICAgICAgICAgICAgICAgICAgICAgICAgICAgICAgIC AgICAgICAgICAgICAgICAgICAgICAgICAgICAgICAg DQogICAgICAgICAgICAgICAgICAgICAgICAgICAgICAgICAgICAgICAgICAgICAgICAgICAgICAgICAg ICAgICAgICAgICAgICAgICAgICAgICAgICAgICAgICAgICAgICAgICAgDQogICAgICAgICAgICAgICAg ICAgICAgICAgICAgICAgICAgICAgICAgICAgICAgIC AgICAgICAgICAgICAgICAgICAgICAgICAgICAgICAgICAgICAgICAgICAgICAgICAgICAgDQogICAgIC AgICAgICAgICAgICAgICAgICAgICAgICAgICAgICAgICAgICAgICAgICAgICAgICAgICAgICAgICAgIC AgICAgICAgICAgICAgICAgICAgICAgICAgICAgICAg ICAgDQogICAgICAgICAgICAgICAgICAgICAgICAgICAgICAgICAgICAgICAgICAgICAgICAgICAgICAg ICAgICAgICAgICAgICAgICAgICAgICAgICAgICAgICAgICAgICAgICAgICAgDQogICAgICAgICAgICAg ICAgICAgICAgICAgICAgICAgICAgICAgICAgICAgIC AgICAgICAgICAgICAgICAgICAgICAgICAgICAgICAgICAgICAgICAgICAgICAgICAgICAgICAgDQogIC AgICAgICAgICAgICAgICAgICAgICAgICAgICAgICAgICAgICAgICAgICAgICAgICAgICAgICAgICAgIC AgICAgICAgICAgICAgICAgICAgICAgICAgICAgICAg CYYyAXMeLCt7X7wdVCYrPAVjUA0jQXy6It0+GZzCPmPnDPI3hqAacW2HLB6wh8ZfCRvpAFUcg3JxDEp7 KY9LBCWfIWlvAT4ZZZlbzh7SOIHzGLTwdXSQp9hhNuUuYCK6VSGgIxkpTG4LNQPjL3bkbeOwJZDwEIOA IDcgMCBSIDkgMCBSIDExIDAgUiAxMyAwIFIgMTUgMC BRGZ5APlHcV4HfiJ63XUDTGu7+MLslbgSvAdhYKmPqTTSds0IhIHh8BM0KPUSjMtrka8NxFjZpEVPYMT njGG3YALG1WJQbSCJnOi2QVAVpZ639dzZuGX5JUk1AGqTaQJ5use4VWjQvNBPiOahHGkn7PMtjAF2LnT JhRFlKsx3jjoWsyiPDe1XepkIzpBHYTRJydbEbXPeh DhIoBr5pXCicJfZaLOLpBo2rMhFbEvRzLTR2CVDqNG7wQMrvFR3YMGU3MExgANVyAIInZ2dANqQnSVQy HsCrgNfsLL6HDkLbC1ZewnJxeDKnZkSwBPWQVc6+HOxlqdRzAngRJgJ3UUPpb7AwLHh2AC1JAUDjPQwu YZ8EMVVzfJ9lAFjmZG2XTeCbFLGhLADYVhHwS83flY KeIMv0X1JrLwTvTVMvHgujWVYnNLdhXmNsZTCuPjMmPDqnOD2+ID4+BVluUS1QHModexDeKPMwWo7OMU UePYYhXN4qHZJwTNWuL7N6xTmbYKIZAqSkI7owqapbRE6aESYkL718kBipzpPnDFOmVSYnBb4YQVDcCB V5KDYfoGMnDkEhJOBVLYniYI2FyDNbEAC3wF0yVScs DOPcQTHtU2cCUnXgmCgbYG52bAcveuNabPFbGFs+Zb9JZY2dk7EwFRg9pxTqRStlXEB9ZWafVBSyCZMz KDKyDBX2WWI5TPEJUeRiYUQkESYtWIiaTMPwRCWilj5QKJSnHBNcMyY9BlSvETBlCEPtRNrpSSIoJDO1 PgW7MSKbQEJzVW6WJlIuMFZcUECkJNyxZUYzUWIstr 5YKOHjSPGqSlZnFjUxTLNfHHYcZRdcEELsNHBpEFKxFVSbCELvCU9PHxNoVRRsOXr0CKUbBXNaNKQfzy 7WADTjIERzGda6CVMrFKBsBRCkCIgyNGGhFQXhRzL5GLBtFXSsDR5AGuFlCRJlCSN5KrKlYUUsLRZdnl 7CMZPgPUBmAzvgRaGpZPRqRYSvKPwrKQPiOOS4RSQr KRKsSUNaAC7OBgEiZOVbTUl4NfGsJTPcJWFsbx9QBUIuVQPdPCZ3RQGkQLEdQCYfEZtyCNPyIAV5DMH0 MCRsZDLkQG5STkOfOWZoOrLtBMEmNFXjXUDxov1QNWIrYVLfASE6DcPoBMXbSHDtUXkrBTUbYMQyHxQ7 BXIyWAJzJL1OMbHnHQHgJlT0SQLgOOAgPJXdoo5MEJ OvVPEeXzPkOWZxJETfKSNvQUfpXRVhURKlKyOpRMQlWVGuUD0SBxUuVLIjWtH0WSTwWHBjIEChqv7NVC WkWNWjJKWaRREtMUWmZKWnGUulTEPaFDU9BDJ2VNUdTCUuSO5SUoXaOPQaQyF8MlWoUFQrUUVwba1UOV ZyYNVuNVKeTUEdVMUtATHwOZsuMJRePRV9POEjBKIc TNAhUJ0OQyGkYZVpWaZwDMHcPUUaSIKjgl9WFLYnHIMpOgV8KiCxCCPwFLNoCZdfLLUxETH5MLcfICOi HDYhPE7RIaEkHCFnTmP4CEozJMKyXMKchi0YVJWvVHMgCBI6KWCqKWEbKHUfVKfrPHKpVUR6NSLqOZUv TJDhWF6QUsBhBNIhErv2PIImQICyQSRbbh0PoJHxeV kokt0MATyQBm7AkUafDYL3FSfoVa9fbBQoPMOkRLMBSp9CndIvRXLbPYVJYGllRZMvDTWoUuR9XAGnOY ZsZpIcHKSdVcG4Ndp9ERH4SbVqR6O3ZwB9L1XeSOw3WUO9NvG6YHB8AfT7IfnnTeviXMBuNzIjRwq+IF 0gDQo+Ml3Ek5QoifJ4nlWlEQzgLRqoFE6XCOXPV9UCCl== ID Date Data Source [id number] 09/13/2020 03:07:00 PM EST [facility] ([facility] Name Value Range Interpretation Code Description Data Herlinda rce(s) Supporting Document(s) Laboratory test finding (navigational concept) Laboratory test result [facility] ([facility]) REFERENCE INTERVAL: Negative No informative autoantibodies were detected in this evaluation. A negative result does not preclude a diagnosis of an inflammatory [employer] demyelinating disorder. ADDITIONAL INFORMATIO N This test was developed and its performance characteristics determined by [facility] in a manner consistent with CLIA requirements. This test has not been cleared or approved by the U.S. Food and Drug Administration. Homocysteine [Moles/volume] in Serum or Plasma Laboratory test result [facility] ([facility]) SEE SEPARATE REPORT ID Date Data Source [id number] 09/13/2020 03:07:00 PM EST [facility] ([facility]) Name Value Range Interpretation Code Description Data Herlinda rce(s) Supporting Document(s) Index Value Laboratory test result [facility] T ([facility]) SEE SEPARATE REPORT Interpretation Laboratory test result ME DENT ([facility]) SEE SEPARATE REPORT JCV Antibody Laboratory test result MEDE NT ([facility] SEE SEPARATE REPORT JCV Antibody By Inhibition Laboratory test result [facility] ([facility]) SEE SEPARATE REPORT Interpretation Laboratory test result ME DENT ([facility]) SEE SEPARATE REPORT ID Date Data Source [id number] 09/13/2020 03:07:00 PM EST [facility] ([facility] Name Value Range Interpretation Code Description Data Herlinda rce(s) Supporting Document(s) Antinuclear Antibodies Laboratory test result [facility] ([facility]) See Separate Report Testing performed at reference lab. Report copy to follow on a separate form. 09/30/20 REF LAB#:[id number] Herpes Zoster, Varicella IgG Laboratory test result [facility] ([facility]) SEE SEPARATE REPORT Methylmalonate [Moles/volume] in Serum or Plasma [facility]) SEE SEPARATE REPORT Ceruloplasmin [Mass/volume] in Serum or Plasma Laboratory test result [facility] ([facility]) SEE SEPARATE REPORT Copper [Mass/volume] in Serum or Plasma Laboratory test result [facility] ([facility]) SEE SEPARATE REPORT Zinc [Mass/volume] in Serum or Plasma Laboratory test result [facility] ([facility]) See Separate Report Aquaporin 4 receptor IgG Ab [Units/volum e] in Serum or Plasma by Immunofluorescence [facility] ID Date Data Source [id number] 09/13/2020 03:07:00 PM EST [facility] ([facility]) Name Value Range Interpretation Code Description Data Herlinda rce(s) Supporting Document(s) Cobalamin (Vitamin B12) [Mass/volume] in Serum or Plasma 548 pg/mL 2 47-911 [facility] ([facility] VITAMIN B12 NORMAL RANGE NORMAL 247 - 911 PG/ML INDETERMINATE 211 - 246 PG/ML DEFICIENT LESS THAN 211 PG/ML Hepatitis B virus surface Ab [Presence] in Serum by Im munoassay Laboratory test result [facility] ([facility] HIV 1+2 Ab [Presence] in Serum Laboratory test result [facility] ([facility]) <content>This assay was performed utiliz ing a [...] in low risk populations is</content>
<content>99.6-99.8%.</content>
<content></content> Folate [Mass/volume] in Red Blood Cells 10.3 ng/mL [facility] ([facility]) FOLATE NORMAL RANGE NORMAL GREATER THAN 5.4 NG/ML INDETERMINATE 3.4-5.4 NG/ML DEFICIENT LESS THAN 3.4 NG/ML Calcidiol [Mass/volume] in Serum or Plasma 23.5 ng/mL 30.0-100.0 [facility] ([facility]) Miscellaneous Test Lab Laboratory test result [facility] ([facility]) See Separate Report Testing performed at reference lab . Report copy to follow on a separate form. 09/23/20 REF LAB#:[id number] Order this test in the future with mneumonic [] . Silverman = [] , CPT CODES = []. Sample was sent to [] . Specimen requirements are [] . Please call the lab with any other questions. ID Date Data Source [id number] 09/13/2020 03:07:00 PM EST [facility] ([facility]) Name Value Range Interpretation Code Description Data Herlinda rce(s) Supporting Document(s) Hepatitis B Surface Antigen Laboratory test result [facility] ([facility]) Hepatitis C Virus Brandi Index 0.1 INDEX [facility] ([facility]) Negative Not infected with HCV, unless recent infection is suspected or other evidence exists to indicate HCV infection. Hepatitis A Antibody Igm Laboratory test result [facility] ([facility]) Hepatitis B Core Antibody Igm Laboratory test result [facility] ([facility]) ID Date Data Source [id number] 09/13/2020 03:07:00 PM EST [facility] ([facility]) Name Value Range Interpretation Code Description Data Herlinda rce(s) Supporting Document(s) Glucose, Fasting 96 mg/dL 70-100 [facility] ([facility]) Blood Urea Nitrogen 14 mg/dL 7-18 [facility] ([facility]) Creatinine For GFR 0.61 mg/dL 0.55-1.30 [facility] ([facility]) Glomerular Filtration Rate Laboratory test [facility] ([facility]) <content>Units are mL/min/1.73 m2</content>
<content></content>
<content>Chronic Kidney Disease Staging per NKF:</content>
<content></content>
<content>Stage I & II GFR >=60 Normal to Mildly Decreased</content>
<content>Stage III GFR 30- 59 Moderately Decreased</content>
<content>Stage IV GFR 15-29 Severely Decreased</content>
<content>Stage V GFR <15 Very Little GFR Left</content>
<content>ESRD GFR <15 on SUPERVISOR PUBLICATIONS</content>
<content></content> Sodium Level 138 meq/L 136-145 [facility] ([facility]) Potassium Serum 4.4 meq/L 3.5-5.1 [facility] ([facility]) Carbon Dioxide Level 29 meq/L 21-32 [facility] ([facility]) Chloride Level 105 meq/L 98-107 [facility] ([facility]) Ast/Sgot 12 U/L 7-37 [facility] ([facility]) Anion Gap 4 meq/L 8-16 [facility] ([facility]) Calcium Level 9.7 mg/dL 8.8-10.2 [facility] ([facility]) Alkaline Phosphatase 125 U/L 45-117 [facility] ([facility]) Alt/SGPT 23 U/L 12-78 [facility] ([facility]) Bilirubin,Total 0.5 mg/dL 0.2-1.0 [facility] ([facility]) Albumin 4.2 GM/DL 3.2-5.2 [facility] ([facility]) Total Protein 7.2 GM/DL 6.4-8.2 [facility] ([facility]) Albumin/Globulin Ratio 1.4 1.2-2.2 [facility] ([facility]) ID Date Data Source [id number] 09/13/2020 03:07:00 PM EST [facility] ([facility]) Name Value Range Interpretation Code Description Data Herlinda rce(s) Supporting Document(s) White Blood Count 6.9 10 4.0-10.0 [facility] ([facility]) Red Blood Count 4.64 10 4.00-5.40 [facility] ([facility]) Hemoglobin 14.2 g/dL 12.0-15.5 [facility] ([facility] Hematocrit 42.7 % 36.0-47.0 [facility] Mean Corpuscular Volume 92.0 fl 80.0-96.0 [facility] ([facility]) Mean Corpuscular HGB Conc 33.3 g/dL 32.0-36.5 MED[facility] NT ([facility]) Mean Corpuscular Hemoglobin 30.6 pg 27.0-33.0 [facility] ([facility]) Red Cell Distribution Width 11.7 % 11.5-14.5 [facility] ([facility]) Platelet Count, Automated 373 10 150-450 [facility] NT ([facility]) Neutrophils % 79.7 % 36.0-66.0 [facility] ([facility]) Lymph % 9.8 % 24.0-44.0 [facility] [place] % 7.9 % 0.0-5.0 [facility]) Baso % 0.6 % 0.0-1.0 [facility] ([facility]) Eos % 1.7 % 0.0-3.0 [facility]) Immature Granulocyte % 0.3 % 0-3.0 [facility] ([facility]) Nucleated Red Blood Cell % 0.0 % 0-0 [facility] ([facility]) [place] # 0.5 10 0.0-0.8 [facility] ([facility]) Lymph # 0.7 10 1.5-5.0 [facility] ([facility]) Neutrophils # 5.5 10 1.5-8.5 [facility] ([facility]) Eos # 0.1 10 0.0-0.5 [facility] Baso # 0.0 10 0.0-0.2 [facility] ([facility]) ID Date Data Source [id number] 09/13/2020 03:07:00 PM EST [facility] ([facility]) Name Value Range Interpretation Code Description Data Herlinda rce(s) Supporting Document(s) IgA [Mass/volume] in Serum or Plasma 211.0 mg/dL 70-400 [facility] ([facility]) ID Date Data Source [id number] 09/13/2020 03:07:00 PM EST [facility] ([facility]) Name Value Range Interpretation Code Description Data Herlinda rce(s) Supporting Document(s) Bilirubin,Direct 0.2 mg/dL 0.0-0.2 [facility] ([facility]) ID Date Data Source [id number] 09/22/2020 05:05:00 PM EST [facility] Name Value Range Interpretation Code Description Data Herlinda rce(s) Supporting Document(s) 2C9 Genotype [facility] Interpretation [facility] [...] individual results of thistest.Mayzent (siponimod) [package insert]. [place], [place]:[employer]; 2019.For more information on interpreting this report, pleasevisit [email or web address] or call Customer Service [phone] between the hours of 6:30am to 5:00pm PTM through Saturday.This assay meets the standards for performanc echaracteristics and all other quality control microbiologist and assurancerequirements established by CLIA. The results should not beused as the sole criteria for patient management. This testwas developed and its performance characteristicsdetermined by [employer]. It has not been clearedor approved by the FDA. This document contains private andconfidential health information protected by state andfederal law. If you have received this document in error,please call [phone]. The provision of this free testis not contingent on any requirement to utilize or purchasethis test, or any other product or service, in the future.Additionally, provision of this free test by [employer] is a form of patient supportwith no [...] such as Medicare and Medicaid. Director Review: LabCooumar Gracia MD, PhDDirectorMonogram B iosciences PDF . [facility] ID Date Data Source [id number] 09/19/2020 07:05:00 PM EST [facility] Name Value Range Interpretation Code Description Data Herlinda rce(s) Supporting Document(s) [email or web address] Informed Consent Form [facility] Please Fax back to [phone]. Many [address] ates require laboratoriesto have documentation [...] of the sample when testing is complete. [facility] did not receive any documentation of informed consentfor above mentioned patient and ordered tests. Please check thestatement applicable to this patient and sign below so that [facility] release the results for this patient. [] I authorize and confirm patient consent for the above mentionedgenetic test(s). [] I have provided appropriate informed consent for the above mentioned test(s) and documentation of this consent is maintained in the patient record. Health care provider signature Date Printed name Fax back to [facility] at [phone] [facility] ID Date Data Source [id number] 08/31/2020 05:58:50 PM [facility] Name Value Range Interpretation Code Description Data Herlinda rce(s) Supporting Document(s) Progress Note [facility] CFWHNr5hDcNZSfSn13/HZWndNLNej3ObNZrvILp1SQpgFGLdX9SwUKG6iQ4uEKF6ZXtQNhLvRdFwOkY6 [facility] [file] AgICAgICAgICAgICAgICAgICAgICAgICAgICAgICAg ICAgICAgICAgICAgICAgICAgICAgICAgICAgICAgICAgICAgICAgICAgDQogICAgICAgICAgICAgICAg ICAgICAgICAgICAgICAgICAgICAgICAgICAgICAgICAgICAgICAgICAgICAgICAgICAgICAgICAgICAg ICAgICAgICAgICAgICAgICAgICAgICAgDQogICAgIC AgICAgICAgICAgICAgICAgICAgICAgICAgICAgICAgICAgICAgICAgICAgICAgICAgICAgICAgICAgIC AgICAgICAgICAgICAgICAgICAgICAgICAgICAgICAgICAgDQogICAgICAgICAgICAgICAgICAgICAgIC AgICAgICAgICAgICAgICAgICAgICAgICAgICAgICAg ICAgICAgICAgICAgICAgICAgICAgICAgICAgICAgICAgICAgICAgICAgICAgDQogICAgICAgICAgICAg ICAgICAgICAgICAgICAgICAgICAgICAgICAgICAgICAgICAgICAgICAgICAgICAgICAgICAgICAgICAg ICAgICAgICAgICAgICAgICAgICAgICAgICAgDQogIC AgICAgICAgICAgICAgICAgICAgICAgICAgICAgICAgICAgICAgICAgICAgICAgICAgICAgICAgICAgIC AgICAgICAgICAgICAgICAgICAgICAgICAgICAgICAgICAgICAgDQogICAgICAgICAgICAgICAgICAgIC AgICAgICAgICAgICAgICAgICAgICAgICAgICAgICAg ICAgICAgICAgICAgICAgICAgICAgICAgICAgICAgICAgICAgICAgICAgICAgICAgDQogICAgICAgICAg ICAgICAgICAgICAgICAgICAgICAgICAgICAgICAgICAgICAgICAgICAgICAgICAgICAgICAgICAgICAg ICAgICAgICAgICAgICAgICAgICAgICAgICAgICAgDQ ogICAgICAgICAgICAgICAgICAgICAgICAgICAgICAgICAgICAgICAgICAgICAgICAgICAgICAgICAgIC AgICAgICAgICAgICAgICAgICAgICAgICAgICAgICAgICAgICAgICAgDQogICAgICAgICAgICAgICAgIC AgICAgICAgICAgICAgICAgICAgICAgICAgICAgICAg ESWuYXAuNMSaBJTvGBXgZQHzIHMhUJMsMBPmRCHzSGUwWTWoPQPlQUUpIWZzVAMzCJCuMXr3J2ilVEJj AOVsXJ7nULk7Il0+XAcONlOxOEF4dpEysS6WXQ7fb6PmUTooZMYyx3WeDFs0ZP1WVAJnTYgxTM0DKIln or3WOYVjYNBcqRRAv8xcKnMvHWM7VOPmRakeTE3EFM GsX5nolqOoAWNyYYAGREowTNBLFKavMGOGQEGtHOLgDuCoOiHjXKXlYB0FJCIlK750raRpBT5WDm5RVz AuDQ9tus9JQlxwTGVbOekQQqo3ZHycNP9CrFJwkBSgXRLaTMJFRoQrI5tae0QeDxbxQGLGWOedKS4Ou7 VudCAxDQo+Mi7UEA8kd0HuOTegVSWeIF9zbg4GEDeB NxSwI3YaeIboKVDjt6gsABGmFU2ytULeENB2OKZvcxV9KROvLYPJkpR6OKTTSSKfeOMkDg91AqTfFoLj RAY1AeSnZK6rXVzrBU0BZTZ6YPelBXGiCROaN2uBInAfIKUrRjDdzPylNH7NBbKoL3YwdpLxiKSyMpOf IFINCj4+MGzcjcTdKcrITgJ0CFGqo3DgKEe2VA7POF HeGJqvFJ1OBSFcrO2tYHshCF3NSmRjJLPxVGUASmXsZ82zdBZxNPa1D0SyJeMpNERtWgaxMYGxCMwsMp FtZXMgWyBdDQogID4+ID4+OSerIV1UDNfnfpCtAVQjTy7EHAEmSZNlSG5zNVFoBWDkF3F3cCteAUMHEu NeW7efvlapBG0xAMWrN143rEniasHcIHT8TRUiHp9A BRNoBEQ9ZGYhgXXiClKiKWLVNVsmVD0OsGDbKZJ9eG4hQProFUOdZAVlI3rJDcLhdPhmVM05tJiqokDm bCBdDQo+Cm0FCQ4am5PsSKy8oqAbBDzcXIVmIAfrGFNlRYDwMRCoUYM8FPY7SJJUGuWiPYPhJCOrUKag RJEsWLCish2DASSrAIDuXMw2NgJyITNmGETeBFylNL VbVNEqQNE9TUOlVINkPH7AYnDgEELlXJWrKLqtHYMxZRZzxl8NDOFrQOEjQaYiCjRjZHXqKVCwGHmbQF AaTOQkNeUwSYSdNDVmVU0NDiWxXJKtYGLnWIzpQUZwURKdpn5EYLGmWUTdJsXdGyTwRFUbVKEwYItkPD LuVAL5ATCeEVSmYBLiDS2SFsVvSQLqBJt1JjqgYGNf DNFled4TTMWmPFCoAlTbMAHvEGLrFUVqWMwyROMoLFQcYrCyONCtXNHgPP0KKhGgJJDbLPM2SeCeDMWl YMVeiv2BTXTtEAUiXOboBtQgZDQpASHyMVtfAWEiUVA9Krk6PSHmHDVoUP5ROjBzTVOtDEW4NDYeKPGq USDrkd0FXGVgMJNcYuP7KjQhCPZjLWOgTIqjFSZuWD M6LHV7VYLsKVDhCE1AWdKaWLAsDRhbTahfWDUbWAVlmr9VEVEnUZKaXFMmQKAmYRHsANSwJIkrCIVgUM Q8XDK2FNTsEXVqPL8JLtRuTEVwAdSoQbCzCPBuLLVjry5ISSGjFEFvYJS5RQXwACWmDPUwQJnmCGJpVQ NeAqY1DBFoJSRuRO8TBuXcMSAuDaK8BrLkBUJpRYTt sd4MMTNqOXZeDGU8MoOuOJFxINPiRLllOHInPVSbTmOiMBWdMKLuNW4FMlHsBJFfJhM6VEQiADPqMIYx ly1WBOMnXBYbChq6EUZyNGTxUQWyWSy7rrOqpROqHEm1PC4JX2PgcaSeSlYKUu0Lk181PEM6FRUoFw3H G4ytCp1aNGWjHLEUSe6KMBc2OwD3QZHxKfawJFA8ZK N2XAB6UrV6RGHrZwSgCBJnABL+TIwkIjO4A5PvCXB3BeS8VmA0DNTpLlJaSKZdBmQdHMP1UP2zGUCOKr 4+UDjjuAXvhWrvYAIBOeLbBUD3ZVgzFPLQEq7J ID Date Data Source [id number] 08/15/2020 02:20:00 PM EST [facility] ([facility]) Name Value Range Interpretation Code Description Data Herlinda rce(s) Supporting Document(s) JCV Antibody Laboratory test result [facility] ([facility] <content>Index interpretive criteria:</c ontent>
<content><0.20 negative</content>
<content>0.20-0.40 indeterminate</content>
<content>>0.40 positive</content>
<content></content> Index Value 0.14 [facility] ([facility]) Interpretation Laboratory test result [facility] ([facility] . Negative: Antibodies to JCV not detected. [...] index.1 . 1TYSABRI (natalizumab) [place] Prescribing Information. JCV Antibody By Inhibition [facility] Interpretation Laboratory test result [facility] ([facility]) . Positive: Antibodies to MAYRA virus (JCV) detected indicating the patient has been exposed to JCV at an undetermined time Negative: Antibodies to JCV not detected Performed at: [facility] [address] [place], [place] [id number] Business Development Recruiter: Farooq Askew MD, Phone: [phone] Performed at: - [facility] [address] [id number] Business Development Recruiter: Vale Kilpatrick MD, Phone: [phone] ID Date Data Source [id number] 08/15/2020 02:18:00 PM EST [facility]) Name Value Range Interpretation Code Description Data Herlinda rce(s) Supporting Document(s) Creatinine 0.5 mg/dL 0.6-1.3 [facility] Urea nitrogen [Mass/volume] in Serum or Plasma 16 mg/dL 7-18 [facility] ([facility]) Glucose [Mass/volume] in Serum or Plasma 93 mg/dL 74-99 [facility] ([facility]) 100-125 mg/dL PRE-DIABETES/FASTING >126 mg/dL DIABETES/FASTING Chloride [Moles/volume] in Serum or Plasma 102 meq/L 98-107 [facility] ([facility]) Potassium [Moles/volume] in Serum or Plasma 4.6 meq/L 3.5-5.1 [facility] ([facility]) Sodium [Moles/volume] in Serum or Plasma 139 meq/L 136-145 [facility] ([facility]) Carbon dioxide, total [Moles/volume] in Serum or Plasma 29 meq/L 21 -32 [facility] ([facility]) Calcium [Mass/volume] in Serum or Plasma 9.5 mg/dL 8.5-10.1 [facility] ([facility]) Alkaline phosphatase isoenzyme [Units/volume] in Serum or Pl asma 92 mg/dL 46-116 [facility] ([facility]) Total Bilirubin 0.5 mg/dL 0.2-1.0 [facility] ([facility]) Alanine aminotransferase [Enzymatic activity/volume] in Seru m or Plasma 20 U/L 12-78 [facility] ([facility]) Aspartate aminotransferase [Enzymatic activity/volume] in Serum or Plasma 14 U/L 15-37 [facility] ([facility] ) Proteinase 3 Ab [Units/volume] in Serum 7.0 g/dL 6.4-8.2 [facility] ([facility]) Albumin [Mass/volume] in Serum or Plasma 4.0 g/dL 3.4-5.0 [facility] ([facility]) A/G Ratio 1.33 CALC 1.00-1.90 [facility] ([facility]) Glomerular filtration rate/1.73 sq M pre dicted among non-blacks [Volume Rate/Area] in Serum or Plasma by Creatinine-based formula (MDRD) Laboratory test result [facility] ([facility] ) Glomerular filtration rate/1.73 sq M pre dicted among blacks [Volume Rate/Area] in Serum or Plasma by Creatinine-based formula (MDRD) Laboratory test result [facility] ([facility]) <content>CHRONIC KIDNEY DISEASE STAGING PER NKF</content>
<content></content>
<content>STAGE I & II GFR >= 60 NORMAL TO MILDLY DECREASED</content>
<content>STAGE III GFR 30-59 MODERATELY DECREASED</content>
<content>STAGE IV GFR 15-29 SEVERELY DECREASED</content>
<content>STAGE V GFR <15 VERY LITTLE GFR LEFT</content>
<content>ESRD GFR <15 ON SUPERVISOR PUBLICATIONS</content>
<content></content> ID Date Data Source [id number] 08/15/2020 02:18:00 PM EST [facility] ([facility]) Name Value Range Interpretation Code Description Data Herlinda rce(s) Supporting Document(s) Hemoglobin [Mass/volume] in Blood 14.4 g/dL 12.0-18.0 [facility] ([facility]) Leukocytes [#/volume] in Blood by Automated count 6.8 x10*3/UL 4.1-10 .9 [facility] ([facility]) Erythrocytes [#/volume] in Blood by Automated count 4.55 x10*6/UL 4.2 0-6.30 [facility] ([facility]) MCH 31.7 pg 26.0-32.0 [facility] ([facility] Hematocrit [Volume Fraction] of Blood by Automated count 41.2 % 3 7.0-51.0 [facility] ([facility]) MCV 90.4 fL 80.0-97.0 [facility] ([facility] Platelets [#/volume] in Blood by Automated count 340 x10*3/UL 140-440 [facility] ([facility]) MCHC 35.0 g/dL 31.0-38.0 [facility] ([facility]) Erythrocyte distribution width [Ratio] by Automated count 12.4 % 11.6-13.7 [facility] ([facility]) Lymph % 10.1 % 10.0-58.5 [facility] ([facility]) Mid % 2.6 % 1.7-9.3 [facility] ([facility] MPV 7.8 FL 7.8-11.0 [facility] ([facility] Neut % 87.3 % 37.0-92.0 [facility] Lymph # 0.6 x10*3/UL 0.6-4.1 [facility] ([facility]) Mid # 0.3 x10*3/UL 0.1-0.6 [facility] ([facility]) Neut # 5.9 x10*3/UL 2.0-7.8 [facility] ([facility]) ID Date Data Source [id number] 07/27/2020 01:28:00 PM EST [facility] ([facility]) Name Value Range Interpretation Code Description Data Herlinda rce(s) Supporting Document(s) MAYRA Virus Dna PCR Whole Blood Laboratory [facility] No JCV DNA detected This test was developed and its performance characteristics determined by [employer]. It has not been cleared or approved by the Food and Drug Administration. The FDA has determined that such clearance or approval is not necessary. Performed at: [address] [id number] Business Development Recruiter: Grupo Silvestre MD, Phone: [phone] ID Date Data Source [id number] 07/27/2020 01:28:00 PM EST [facility] ([facility]) Name Value Range Interpretation Code Description Data Herlinda rce(s) Supporting Document(s) MAYRA virus DNA [Units/volume] (viral load) in Blood by Probe and target amplification method Laboratory test result [facility] ([facility]) ID Date Data Source [id number] 07/27/2020 01:26:00 PM EST [facility] ([facility]) Name Value Range Interpretation Code Description Data Herlinda rce(s) Supporting Document(s) Leukocytes [#/volume] in Blood by Automated count 6.4 x10*3/UL 4.1-10 .9 [facility] ([facility]) Erythrocytes [#/volume] in Blood by Automated count 4.55 x10*6/UL 4.2 0-6.30 [facility] ([facility]) Hematocrit [Volume Fraction] of Blood by Automated count 40.5 % 3 7.0-51.0 [facility] ([facility]) Hemoglobin [Mass/volume] in Blood 14.5 g/dL 12.0-18.0 [facility] ([facility]) MCH 31.8 pg 26.0-32.0 [facility] MCHC 35.8 g/dL 31.0-38.0 [facility] ([facility]) Erythrocyte distribution width [Ratio] by Automated count 12.0 % 11.6-13.7 [facility] ([facility]) MCV 89.0 fL 80.0-97.0 [facility] ([facility]) MPV 7.9 FL 7.8-11.0 [facility] ([facility]) Platelets [#/volume] in Blood by Automated count 335 x10*3/UL 140-440 [facility] ([facility]) Lymph % 7.1 % 10.0-58.5 [facility] ([facility]) Neut % 85.5 % 37.0-92.0 [facility] ([facility]) Lymph # 0.4 x10*3/UL 0.6-4.1 [facility] ([facility]) Mid % 7.4 % 1.7-9.3 [facility] ([facility]) Neut # 5.5 x10*3/UL 2.0-7.8 [facility] ([facility]) Mid # 0.5 x10*3/UL 0.1-0.6 [facility] ([facility]) ID Date Data Source [id number] 06/30/2020 01:21:00 PM EDT [facility] ([facility]) Name Value Range Interpretation Code Description Data Herlinda rce(s) Supporting Document(s) MAYRA Virus Dna PCR Whole Blood Laboratory test result [facility] ([facility]) No JCV DNA detected This test was developed and its performance characteristics determined by [employer]. It has not been cleared or approved by the Food and Drug Administration. The FDA has determined that such clearance or approval is not necessary. Performed at: [address] [id number] Business Development Recruiter: Grupo Silvestre MD, Phone: [phone] ID Date Data Source [id number] 06/30/2020 01:21:00 PM EDT [facility] ([facility] ) Name Value Range Interpretation Code Description Data Herlinda rce(s) Supporting Document(s) MAYRA Virus Dna PCR Whole Blood Laboratory test result [facility] ([facility]) No JCV DNA detected This test was developed and its performance characteristics determined by [facility]. It has not been cleared or approved by the Food and Drug Administration. The FDA has determined that such clearance or approval is not necessary. Performed at: [address] [id number] Business Development Recruiter: Grupo Silvestre MD, Phone: [phone] ID Date Data Source [id number] 06/30/2020 01:21:00 PM EDT [facility] ([facility]) Name Value Range Interpretation Code Description Data Herlinda rce(s) Supporting Document(s) MAYRA virus DNA [Units/volume] (viral load) in Blood by Probe and target amplification method Laboratory test result [facility] ([facility]) ID Date Data Source [id number] 06/30/2020 01:19:00 PM EDT [facility] ([facility]) Name Value Range Interpretation Code Description Data Herlinda rce(s) Supporting Document(s) Urea nitrogen [Mass/volume] in Serum or Plasma 22 mg/dL 7-18 [facility] ([facility]) Creatinine 0.6 mg/dL 0.6-1.3 [facility] ([facility] Glucose [Mass/volume] in Serum or Plasma 83 mg/dL 74-99 [facility] ([facility]) 100-125 mg/dL PRE-DIABETES/FASTING >126 mg/dL DIABETES/FASTING Sodium [Moles/volume] in Serum or Plasma 140 meq/L 136-145 [facility] ([facility]) Chloride [Moles/volume] in Serum or Plasma 105 meq/L 98-107 [facility] ([facility]) Potassium [Moles/volume] in Serum or Plasma 4.8 meq/L 3.5-5.1 [facility] ([facility]) Calcium [Mass/volume] in Serum or Plasma 9.1 mg/dL 8.5-10.1 [facility] ([facility]) Alkaline phosphatase isoenzyme [Units/volume] in Serum or Pl asma 94 mg/dL 46-116 [facility] ([facility]) Total Bilirubin 0.5 mg/dL 0.2-1.0 [facility] ([facility]) Carbon dioxide, total [Moles/volume] in Serum or Plasma 30 meq/L 21 -32 [facility] ([facility]) Aspartate aminotransferase [Enzymatic activity/volume] in Serum or Plasma 10 U/L 15-37 [facility] ([facility] ) Albumin [Mass/volume] in Serum or Plasma 3.8 g/dL 3.4-5.0 [facility] ([facility]) Alanine aminotransferase [Enzymatic activity/volume] in Seru m or Plasma 19 U/L 12-78 [facility] ([facility]) Proteinase 3 Ab [Units/volume] in Serum 6.6 g/dL 6.4-8.2 [facility] ([facility]) A/G Ratio 1.36 CALC 1.00-1.90 [facility] Glomerular filtration rate/1.73 sq M pre dicted among non-blacks [Volume Rate/Area] in Serum or Plasma by Creatinine-based formula (MDRD) Laboratory test result [facility] Glomerular filtration rate/1.73 sq M pre dicted among blacks [Volume Rate/Area] in Serum or Plasma by Creatinine-based formula (MDRD) Laboratory test result [facility] <content>CHRONIC KIDNEY DISEASE STAGING PER NK[facility]</content>
<content></content>
<content>STAGE I & II GFR >= 60 NORMAL TO MILDLY DECREASED</content>
<content>STAGE III GFR 30-59 MODERATELY DECREASED</content>
<content>STAGE IV GFR 15-29 SEVERELY DECREASED</content>
<content>STAGE V GFR <15 VERY LITTLE GFR LEFT</content>
<content>ESRD GFR <15 ON SUPERVISOR PUBLICATIONS</content>
<content></content> ID Date Data Source [id number] 06/30/2020 01:19:00 PM EDT [facility] ([facility]) Name Value Range Interpretation Code Description Data Herlinda rce(s) Supporting Document(s) Leukocytes [#/volume] in Blood by Automated count 6.0 x10*3/UL 4.1-10 .9 [facility] ([facility]) NOTE: RESULT VERIFIED. Hematocrit [Volume Fraction] of Blood by Automated count 39.8 % 3 7.0-51.0 [facility] ([facility]) Erythrocytes [#/volume] in Blood by Automated count 4.47 x10*6/UL 4.2 0-6.30 [facility] ([facility]) Hemoglobin [Mass/volume] in Blood 14.2 g/dL 12.0-18.0 [facility] ([facility]) MCV 89.0 fL 80.0-97.0 [facility] ([facility]) MCH 31.7 pg 26.0-32.0 [facility] ([facility]) MCHC 35.7 g/dL 31.0-38.0 [facility] ([facility]) Erythrocyte distribution width [Ratio] by Automated count 11.9 % 11.6-13.7 [facility] ([facility]) MPV 7.7 FL 7.8-11.0 [facility] ([facility]) Platelets [#/volume] in Blood by Automated count 305 x10*3/UL 140-440 [facility] ([facility]) Mid % 2.4 % 1.7-9.3 [facility] ([facility]) Lymph % 8.1 % 10.0-58.5 [facility] ([facility]) Neut % 89.5 % 37.0-92.0 [facility] ([facility]) Mid # 0.2 x10*3/UL 0.1-0.6 [facility] ([facility]) Lymph # 0.4 x10*3/UL 0.6-4.1 [facility] ([facility]) Neut # 5.4 x10*3/UL 2.0-7.8 [facility] ([facility]) Procedure Social History Code Duration Value Status Description Data Source(s ) Alcohol intake 01/26/2021 12:00:00 AM EDT Current non-d marie of alcohol (finding) completed Current non-drinker of alcohol (finding) [facility] Tobacco use and exposure 01/26/2021 12:00:00 AM EDT Never used co mpleted Never used [facility] Smoking 01/26/2021 12:00:00 AM EDT Never smoker completed Never s moker [facility] Alcohol intake 12/27/2020 12:00:00 AM EDT Current non-d marie of alcohol (finding) completed Current non-drinker of alcohol (finding) [facility] Alcohol intake 10/26/2020 12:00:00 AM EST Current non-d marie of alcohol (finding) completed Current non-drinker of alcohol (finding) [facility] Alcohol intake 08/31/2020 12:00:00 AM EST Current non-d marie of alcohol (finding) completed Current non-drinker of alcohol (finding) [facility] Vital Signs ID Date Data Source UNK Name Value Range Interpretation Code Description Data Source(s) Systolic blood pressure 104 mm[Hg] 104 mm[Hg] [facility] ([facility]) Diastolic blood pressure 70 mm[Hg] 70 mm[Hg] [facility] Heart rate 71 /min 71 /min [facility] ([facility]) Body height 64.50 [in_i] 64.50 [in_i] [facility] ([facility]) 5'4.50" Body weight 141.00 [lb_av] 141.00 [lb_av] [facility] ([facility]) Body mass index (BMI) [Ratio] 23.8 kg/m2 23.8 k g/m2 [facility] ([facility]) Systolic blood pressure 126 mm[Hg] 126 mm[Hg] [facility] ([facility]) RT Arm Diastolic blood pressure 84 mm[Hg] 84 mm[Hg] [facility] ([facility]) RT Arm Heart rate 76 /min 76 /min [facility] ([facility]) Body height 64.50 [in_i] 64.50 [in_i] [facility] ([facility]) 5'4.50" Body weight 135.00 [lb_av] 135.00 [lb_av] [facility] ([facility]) Body mass index (BMI) [Ratio] 22.8 kg/m2 22.8 k g/m2 [facility] ([facility]) Systolic blood pressure 104 mm[Hg] 104 mm[Hg] [facility] ([facility]) Diastolic blood pressure 80 mm[Hg] 80 mm[Hg] [facility] ([facility]) Heart rate 90 /min 90 /min [facility] ([facility]) Body height 64.50 [in_i] 64.50 [in_i] [facility] ([facility]) 5'4.50" Oxygen saturation in Arterial blood by Pulse oximetry 96 % 96 % [facility] ([facility]) RM Air Oxygen saturation in Arterial blood by Pulse oximetry 97 % 97 % [facility] ([facility]) RM Air Systolic blood pressure 122 mm[Hg] 122 mm[Hg] [facility] Diastolic blood pressure 78 mm[Hg] 78 mm[Hg] [facility] ([facility]) Heart rate 82 /min 82 /min [facility] ([facility]) Body height 64.50 [in_i] 64.50 [in_i] [facility] ([facility]) 5'4.50" Body weight 140.00 [lb_av] 140.00 [lb_av] [facility] ([facility]) Body height 64.50 [in_i] 64.50 [in_i] [facility] ([facility]) 5'4.50" Diastolic blood pressure 60 mm[Hg] 60 mm[Hg] [facility]) Systolic blood pressure 112 mm[Hg] 112 mm[Hg] [facility] Heart rate 86 /min 86 /min [facility] ([facility]) Oxygen saturation in Arterial blood by Pulse oximetry 98 % 98 % [facility] ([facility]) RM Air Body mass index (BMI) [Ratio] 23.7 kg/m2 23.7 k g/m2 [facility] ([facility]) Systolic blood pressure 120 mm[Hg] 120 mm[Hg] [facility] Diastolic blood pressure 78 mm[Hg] 78 mm[Hg] [facility] ([facility]) Heart rate 86 /min 86 /min [facility] ([facility]) Body height 64.50 [in_i] 64.50 [in_i] [facility] 5'4.50" Body weight 142.00 [lb_av] 142.00 [lb_av] [facility] ([facility]) Body mass index (BMI) [Ratio] 24.0 kg/m2 24.0 k g/m2 [facility] ([facility]) ID Date Data Source [id number] 04/26/2021 10:40:39 AM [facility] Name Value Range Interpretation Code Description Data Source(s) WEIGHT RECORDED 142.6 lb 142.6 lb [facility] Body height Measured 65 in 65 in [facility] ID Date Data Source [id number] 01/13/2021 08:18:09 AM [facility] Name Value Range Interpretation Code Description Data Source(s) WEIGHT RECORDED 141.8 lb 141.8 lb [facility] Body height Measured 65.5 in 65.5 in [facility] ID Date Data Source [id number] 11/07/2020 10:52:22 PM [facility] Name Value Range Interpretation Code Description Data Source(s) TRANSFER FROM [facility] ID Date Data Source [id number] 10/26/2020 02:49:20 PM [facility] Value Range Interpretation Code Description Data Source(s) WEIGHT RECORDED 140 lb 140 lb [facility] ID Date Data Source [id number] 09/01/2020 10:27:34 AM [facility] Value Range Interpretation Code Description Data Source(s) WEIGHT RECORDED 140 lb 140 lb [facility] Patient Treatment Plan of Care Planned Activity Planned Date Details Description Data Source (s) Baclofen 10 MG Oral Tablet 02/24/2021 12:00:00 AM [facility] gabapentin 400 MG Oral Capsule 01/09/2021 12:00:00 AM [facility] Propranolol Hydrochloride 10 MG Oral Tablet 12/27/2020 12:00:00 AM [facility] Mayzent 2 MG Oral Tablet (Siponimod Fumarate) 11/04/2020 12:00:00 A [facility] methylPREDNISolone Sodium Succ 1000 MG I njection Solution Reconstituted (SOLU-MEDROL) 10/26/2020 12:00:00 AM EST [facility] gabapentin 300 MG Oral Capsule 08/20/2020 12:00:00 AM EST [facility] dimethyl fumarate 240 MG Delayed Release Oral Capsule [facility] ropinirole 1 MG Oral Tablet [facility] Fluoxetine 40 MG Oral Capsule [facility]
[2021-08-08 20:31] LABS: BASO % 0.4 % (0.0-1.0); EOS # 0.1 10^3/uL (0.0-0.5); HEMATOCRIT 45.1 % (36.0-47.0); HEMOGLOBIN 14.9 g/dl (12.0-15.5); LYMPH # 0.2 10^3/uL (1.5-5.0); LYMPH % 3.5 % (24.0-44.0); MEAN CORPUSCULAR HEMOGLOBIN 31.3 pg (27.0-33.0); MEAN CORPUSCULAR VOLUME 94.7 fl (80.0-96.0); MONO # 0.7 10^3/uL (0.0-0.8); MONO % 12.2 % (2.0-8.0); NEUTROPHILS # 4.4 10^3/uL (1.5-8.5); NEUTROPHILS % 81.5 % (36.0-66.0); PLATELET COUNT, AUTOMATED 316 10^3/uL (150-450); RED BLOOD COUNT 4.76 10^6/uL (4.00-5.40); WHITE BLOOD COUNT 5.4 10^3/uL (4.0-10.0)
[2021-08-08] MEDS ORDERED: NITROFURANTOIN (MACROBID) 100 MG CAP PO SCH (21:00)
[2021-08-08 21:02] LABS: BLOOD UREA NITROGEN 12 MG/DL (7-18); CALCIUM LEVEL 9.8 MG/DL (8.8-10.2); CARBON DIOXIDE LEVEL 32 MEQ/L (21-32); CHLORIDE LEVEL 105 MEQ/L (98-107); CREATININE FOR GFR 0.62 MG/DL (0.55-1.30); GLOMERULAR FILTRATION RATE > 60.0 (>45); GLUCOSE, FASTING 107 MG/DL (70-100); POTASSIUM SERUM 4.4 MEQ/L (3.5-5.1); SODIUM LEVEL 140 MEQ/L (136-145)
[2021-08-08 21:11] LABS: RSV AMPLIFICATION NEGATIVE (NEGATIVE)
--- OUTSIDE RECORDS SUMMARY | 2021-08-08 22:10 | CCD ---
Author Author [facility] Organization [facility] Address Unknown Phone Unavailable Care Team Providers Care House Sitter Name Role Phone Raghu GUTIERRES, A Jory [...] MD, A Jory Unavailable Raghu MD, A Ojry Unavailable Raghu MD, A Jory Unavailable Raghu [...] Unavailable Unavailable Brittny, Loly DO Unavailable Unavailable Brittyn, Loly DO Unavailable Unavailable Brittny, Loly DO [...] Unavailable Unavailable Rayancha, Fanta MD Unavailable Unavailable [place], Luz CYBER OPS PLANNER Unavailable Unavailable [place], Luz CYBER OPS PLANNER Unavailable Unavailable [place], Luz CYBER OPS PLANNER Unavailable Unavailable [place], Luz CYBER OPS PLANNER Unavailable Unavailable [place], Luz CYBER OPS PLANNER Unavailable Unavailable Jeff, Luz CYBER OPS PLANNER Unavailable Unavailable Jeff, Luz CYBER OPS PLANNER Unavailable Unavailable [place], Luz CYBER OPS PLANNER Unavailable Unavailable [place], Luz CYBER OPS PLANNER Unavailable Unavailable Jeff, Luz CYBER OPS PLANNER Unavailable Unavailable [place], Luz CYBER OPS PLANNER Unavailable Unavailable Jeff, Luz CYBER OPS PLANNER Unavailable Unavailable Jeff, Luz CYBER OPS PLANNER Unavailable Unavailable [place], Luz CYBER OPS PLANNER Unavailable Unavailable Jeff, Luz CYBER OPS PLANNER Unavailable Unavailable [place], Luz CYBER OPS PLANNER Unavailable Unavailable [place], Luz CYBER OPS PLANNER Unavailable Unavailable [place], Luz CYBER OPS PLANNER Unavailable Unavailable [place], Luz CYBER OPS PLANNER Unavailable Unavailable [place], Luz CYBER OPS PLANNER Unavailable Unavailable Jeff, Luz CYBER OPS PLANNER Unavailable Unavailable [place], Luz CYBER OPS PLANNER Unavailable Unavailable [place], Luz CYBER OPS PLANNER Unavailable Unavailable [place], Luz CYBER OPS PLANNER Unavailable Unavailable [place], Luz CYBER OPS PLANNER Unavailable Unavailable [place], Luz CYBER OPS PLANNER Unavailable Unavailable Jeff, Luz CYBER OPS PLANNER Unavailable Unavailable [place], Luz CYBER OPS PLANNER Unavailable Unavailable Jeff, Luz CYBER OPS PLANNER Unavailable Unavailable [place], Luz CYBER OPS PLANNER Unavailable Unavailable [place], Luz CYBER OPS PLANNER Unavailable Unavailable [place], Luz CYBER OPS PLANNER Unavailable Unavailable [place], Luz CYBER OPS PLANNER Unavailable Unavailable Jeff, Luz CYBER OPS PLANNER Unavailable Unavailable [place], Luz CYBER OPS PLANNER Unavailable Unavailable Debbi DELATORRE MD Unavailable Unavailable [...] is protected by Article 27-F of the [facility] Public Health law. If you continue you may have access to information: Regarding HIV / AIDS; Provided by facilities licensed or operated by the [facility] Office of Mental Health; or Provided by the [facility] Office for People With Developmental Disabilities. If such information is present, then the following [facility] mandated warning applies: This information has [...] law may result in a fine or alf sentence or both. A general authorization for [...] Attender: Luz LANGE 08/25/2021 12:00: 00 AM [facility] Outpatient Attender: Fanta Taveras MD 08/24/2021 12:00: 00 AM [facility] Outpatient Attender: Jory Doyle MD 08/23/2021 12:00:00 A M [facility] Outpatient Attender: MANDY MARYeferrer: Loly Mart DO 06/29/2021 12:00:00 AM [facility] Outpatient Attender: Jory Doyle MDReferrer: Loly Guzman [id number] 06/26/2021 12:00:00 AM EDT - 06/26/2021 12:22:21 PM [facility] Outpatient Attender: Jory Doyle MD 04/28/2021 12:00:00 A M [facility] Outpatient Attender: Loly Hanks 04/06 01:30:00 PM EDT [facility] ([facility] ) Outpatient Attender: Jory Floreserrer: Jory Doyle MD 03/02/2021 12:00:00 AM EDT [facility] Multiple sclerosis Outpatient Attender: Jory Floreserrer: Jory Doyle MD 02/21/2021 12:00:00 AM [facility] Outpatient Attender: Loly Hanks 02/14 01:15:00 PM EDT [facility] ([facility] ) Outpatient 02/14/2021 12:00:00 AM [facility] Outpatient Attender: Jory Doyle MDAdm itter: Jory MARYeferrer: Loly Mart DO [id number] 01/26/2021 12:00:00 AM EDT - 01/26/2021 11:18:45 AM EDT [facility] Multiple sclerosis Outpatient Attender: MANDY DELATORRE MDReferrer: Loly Mart DO [id number] 12/27/2020 12:00:00 AM EDT - 12/27/2020 11:42:51 AM EDT Other specified forms of tremor [facility] Other specified forms of tremor Outpatient Attender: Jory Doyle MD 12/12/2020 12:00:00 A M T [facility] Outpatient Attender: Loly Hanks 11/25 10:00:00 AM EST [facility] ([facility] ) Outpatient 11/07/2020 10:52:00 PM EST neurology consult [facility] neurology consult Outpatient Attender: Luz Aguilar CYBER OPS PLANNER [id number] 12:00:00 AM EST - 10/26/2020 02:48:[facility]: Jory Doyle MD 10/26/2020 12:00:00 A M [facility] Outpatient Attender: Jory Doyle MDReferrer: JOSUE PAIGE MD [id number] 08/31/2020 12:00:00 AM EST - 08/31/2020 10:27:15 AM EST [facility] Multiple sclerosis Outpatient Attender: JOSUE PAIGE MD Main office - [facility] 08/25/2020 03:15:00 PM EST [facility] ([facility]) Outpatient Attender: Loly Hanks 08/15 12:45:00 PM EST [facility] ([facility] ) Outpatient Attender: [facility] 07/19/2020 03:45:00 PM EDT [facility] ([facility]) Outpatient Attender: Loly Hanks 07/15 02:15:00 PM EDT [facility] ([facility] ) Outpatient Attender: Loly Hanks 06/10 03:00:00 PM EDT [facility] ([facility] ) Immunizations Vaccine Date Status Description Data Source(s) COVID-19 VACCINE Pfizer 12/23/2020 12:00:00 AM EDT completed NYSIIS Vaccine Series Complete: YESThis Data wa s Submitted to [facility] Via [employer]. COVID-19 VACCINE Pfizer 12/02/2020 12:00:00 AM EST completed NCSIIS Vaccine Series Complete: NOThis Data was Submitted to [facility] Via [employer]. 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 Amlodipine 5 MG Oral Tablet Amlodipine Besylate 02/14/2021 12:00:00 A M EDT ORAL active [facility] ([facility]) gabapentin 400 MG Oral Capsule Gabapentin 400 MG Oral Capsule (Neurontin) Gabapentin 400 MG Oral Capsule (Neurontin) 01/09/2021 12:00:00 AM EDT 400 mg Oral active Nerve painMultiple sclerosis exacerb ation Take 1 capsule by mouth Three times daily [facility] Nerve pain Multiple sclerosis exacerbation Propranolol Hydrochloride 10 MG Oral Tab let Propranolol HCl 10 MG Oral Tablet (INDERAL) Propranolol HCl 10 MG Oral Tablet (INDERAL) 12/27/2020 12:00:00 AM EDT active Start In deral 10 mg twice daily after two weeks increase to 20 mg in morning and 10 mg at night, in two weeks increase to 20 mg twice daily. 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 [facility] Secondary progressive multiple sclerosis Amoxicillin 500 MG / Clavulanate 125 MG Oral Tablet Am oxicillin/Clavulanate Potassium 10/07/2020 12:00:00 AM EST ORAL completed [facility] ([facility]) gabapentin 300 MG Oral Capsule Gabapentin 300 MG Oral Capsule (NEURONTIN) Gabapentin 300 MG Oral Capsule (NEURONTIN) 08/20/2020 12:00:00 AM EST 300 mg Oral aborted Take 300 mg by mouth Three times daily [facility] duloxetine 30 MG Delayed Release Oral Capsule Duloxetine HCL 08/15/2020 12:00:00 AM EST ORAL completed [facility] ([facility]) teriflunomide 7 MG Oral Tablet [Aubagio] Aubagio 08/09/2020 12:00: 00 AM EST ORAL active [facility] ([facility]) NITROFURANTOIN, MACROCRYSTALS 25 MG / Ni trofurantoin, Monohydrate 75 MG Oral Capsule Nitrofurantoin Monohyd Macro 08/08/2020 12:00:00 AM EST ORAL completed [facility] ([facility]) Primidone 50 MG Oral Tablet Primidone 07/19/2020 12:00:00 AM EDT ORAL active [facility] ([facility]) duloxetine 60 MG Delayed Release Oral Capsule Duloxetine HCL 07/15/2020 12:00:00 AM EDT active [facility] ([facility]) Amlodipine 5 MG Oral Tablet Amlodipine Besylate 06/10/2020 12:00:00 A M EDT ORAL completed [facility] ([facility]) Amlodipine 2.5 MG Oral Tablet Amlodipine Besylate 03/24/2020 12:00: 00 AM EDT ORAL completed [facility] ([facility]) duloxetine 30 MG Delayed Release Oral Capsule Duloxetine HCL 01/15/2020 12:00:00 AM EDT ORAL completed [facility] ([facility]) Fluoxetine 40 MG Oral Capsule fluoxetine (PROZAC) 40 M G capsule fluoxetine (PROZAC) 40 MG capsule 40 mg Oral aborted Take 40 mg by mouth daily. [facility] ropinirole 1 MG Oral Tablet rOPINIRole HCl 1 MG Oral T ablet (REQUIP) rOPINIRole HCl 1 MG Oral Tablet (REQUIP) 1 mg Oral aborted Take 1 mg by mouth Three times daily [facility] dimethyl fumarate 240 MG Delayed Release Oral Capsule Dimethyl Fumarate 240 MG Oral Capsule Delayed Release (Tecfidera) Dimethyl Fumarate 240 MG Oral Capsule Delayed Release (Tecfidera) Oral aborted Take by mouth Two Times Daily [facility] Insurance Providers Payer name Policy type / Coverage type Policy ID Covered alliance party ID Covered alliance party's relationship to richard Policy Richard Plan Information [facility] Health Maintenance Organization ([facility]) [id number] Self Y [id number] [facility] Blue o Health Maintenance Organization ([facility]) [id number] Self [id number] [facility] Blue o Health Maintenance Organization (O) [id number] Self Y [id number] [facility] Blue o Health Maintenance Organization ([facility]) [id number]95.7773.0 Self Y [id number] [facility] Blue o Health Maintenance Organization (O) [id number]95.7773.0 Self Y [id number] [facility] Blue o Health Maintenance Organization (O) [id number]9.4595.7773.0 Self Y [id number] [facility] Blue o Health Maintenance Organization ([facility]) [id number] 2.16.840.1.370096.3.227.99.4595.7773.0 Self Y [id number] MEDICARE [id number] SP [id number] A [facility] Blue o Health Maintenance Organization ([facility]) [id number]9.4595.7773.0 Self Y [id number] [facility] Blue o Health Maintenance Organization (O) [id number]9.4595.7773.0 Self Y [id number] [facility] Blue [facility] Health Maintenance Organization (HMO) [id number] Self Usbpi MEDICARE A [id number] Self [id number] A MEDICARE A [id number] Self [id number] BS Max Trad/MX Commercial [id number] [id number]95.7773.0 Family Dependent S [id number] [place] Trad/MX Commercial [id number] 2.16.840.1.121474.3.227.99.4595.7773.0 Family Dependent S [id number] [place] Trad/MX Medigap Part B [id number] 2.16.840.1.982209.3.227.99.4595.7773.0 Family Dependent S [id number] BS Max Trad/MX Medigap Part B [id number] 2.16840.1.685037.3.227.99.4595.7773.0 Family Dependent S [id number] [place] Trad/MX Commercial [id number] 2.16840.1.709639.3.227.99.4595.7773.0 Family Dependent S [id number] [place] Trad/MX Medigap Part B [id number] 2.16840.1.290321.3.227.99.4595.7773.0 Family Dependent S [id number] BS Max Trad/MX Medigap Part B [id number] 2.16840.1.149663.3.227.99.4595.7773.0 Family Dependent S [id number] [place] Trad/MX Commercial [id number] Family Dependent 804 BS Max Trad/MX Medigap Part B [id number] Family Dependent [id number] BS [place] Trad/MX Commercial [id number] 2.16840.1.999310.3.227.99.4595.7773.0 Family Dependent S [id number] [place] Trad/MX Commercial [id number] BCBS [place] PPO 302/307 [id number] BCBS [place] PPO 302/307 [id number] [id number] [place] Trad/MX Medigap Part B [id number] Medicare Natl Govt Servic Medicare Primary [id number] 2.16840.1.182160.3.227.99.4595.7773.0 Self [id number] Medicare Natl Govt Servic Medicare Primary [id number] 2.16840.1.826454.3.227.99.4595.7773.0 Self 0 [id number] Medicare Natl Govt Servic Medicare Primary [id number] 2.840.1.157255.3.227.99.4595.7773.0 Self [id number] Medicare Natl Govt Servic Medicare Primary [id number] 2.16840.1.324638.3.227.99.4595.7773.0 Self 0 [id number] Medicare Natl Govt Servic Medicare Primary [id number] 2.16840.1.004250.3.227.99.4595.7773.0 Self [id number] Medicare Natl Govt Servic Medicare Primary [id number] 2.840.1.203094.3.227.99.4595.7773.0 Self [id number] Medicare Natl Govt Servic Medicare Primary [id number] Self Medicare Natl Govt Servic Medicare Primary [id number] Self [id number] Medicare Natl Govt Servic Medicare Primary [id number] 2.16840.1.816764.3.227.99.4595.7773.0 Self [id number] Medicare [facility] Primary [id number] 2.16.840.1.992801.3.227.99.4595.7773.0 Self 0 [id number] [place] Trad/MX Commercial [id number] 2.16.840.1.222194.3.227.99.4595.7773.0 Family Dependent V [id number] [place] Trad/MX Medigap Part B [id number] 2.16840.1.968147.3.227.99.4595.7773.0 Family Dependent V [id number] [place] Trad/MX Commercial [id number] 2.0.1.620270.3.227.99.4595.7773.0 Family Dependent V [id number] [place] Trad/MX Medigap Part B [id number] 2.0.1.491415.3.227.99.4595.7773.0 Family Dependent V [id number] [place] Trad/MX Medigap Part B [id number] 2.0.1.191738.3.227.99.4595.7773.0 Family Dependent V [id number] [place] Trad/MX Commercial [id number] 2.16840.1.438824.3.227.99.4595.7773.0 Family Dependent V [id number] [place] Trad/MX Commercial [id number] Family Dependent 802 [place] Trad/MX Medigap Part B [id number] 2.0.1.118799.3.227.99.4595.7773.0 Family Dependent V [id number] [place] Trad/MX Medigap Part B [id number] Family Dependent [id number] [place] Trad/MX Commercial [id number] 2.840.1.383606.3.227.99.4595.7773.0 Family Dependent V [id number] EXCELLUS H [id number] Self [id number] MEDICARE A [id number] Self [id number] A EXCELLUS C [id number] Self [id number] EXCELLUS H [id number] Spouse [id number] [place] Trad/MX Medigap Part B [id number] 2.0.1.080351.3.227.99.4595.7773.0 Family Dependent Y [id number] [place] Trad/MX Medigap Part B [id number] 2.0.1.543466.3.227.99.4595.7773.0 Family Dependent Y [id number] [place] Trad/MX Commercial [id number] 2.0.1.623434.3.227.99.4595.7773.0 Family Dependent Y [id number] BS Max Trad/MX Commercial [id number] 2.0.1.751310.3.227.99.4595.7773.0 Family Dependent Y [id number] BS Max Trad/MX Medigap Part B [id number] 2.0.1.209684.3.227.99.4595.7773.0 Family Dependent Y [id number] [place] Trad/MX Commercial 2.0.1.125121.3. 227.99.4595.7773.0 Family Dependent [place] Trad/MX Medigap Part B [id number] 2.0.1.465801.3.227.99.4595.7773.0 Family Dependent Y [id number] BS Max Trad/MX Commercial [id number] 2.0.1.773279.3.227.99.4595.7773.0 Family Dependent Y [id number] [place] Trad/MX Medigap Part B [id number] Family Dependent [id number] BS [place] Trad/MX Commercial [id number] 2.0.1.573688.3.227.99.4595.7773.0 Family Dependent Y [id number] Blue Cross Blue Shield P [id number] SELF [id number] Medicare C [id number] SELF [id number] A AARP U [id number] Self [id number] MEDICARE [id number] SP [id number] [facility] [id number] SP [id number] AARP O [id number] S [id number] MEDICARE C [id number] S [id number] [facility] OPTIONS [id number] SP [id number] [facility] [id number] SP [id number] [facility] C[facility] [id number] SP [id number] [facility] Healthcare Commercial [id number] Family Dependent [id number] Medicare Medicare Primary [id number] Self [id number] [facility] Health Plans Commercial [id number] Family Dependent [id number] ANSI-Not a Secondary Insurance [id number] ANSI-Medicare Part B [id number] ANSI-Medicare Part B [id number] ANSI-Not a Secondary Insurance [id number] Medicare Medicare Primary [id number] 2.0.1.931650.3.227. 99.936.86021.0 Self [id number] [facility] CARE [id number] 80 [id number] Medicare Medicare Primary [id number] 2..1.138116.3.227. 99.936.94663.0 Self [id number] [facility] HE[facility] CARE O [id number] 80 [id number] ANSI-Medicare Part B [id number] ANSI-Not a Secondary Insurance [id number] Medicare Medicare Primary [id number] 2..1.800072.3.227. 99.936.20692.0 Self [id number] [facility] HEALTH CARE [id number] [facility] 80 [id number] MEDICARE [id number] SP [id number] A [facility] Health Plans Commercial [id number] 2..1.376244.3.227. 99.936.44914.0 Family Dependent [id number] Medicare Medicare Primary [id number] 2.0.1.474273.3.227. 99.936.93079.0 Self [id number] BS Gay/[facility] Part B [id number] 2..1.085656.3.227.99.936.00455.0 Family Dependent Y [id number] Medicare Medicare Primary [id number] 2.0.1.946864.3.227. 99.936.03073.0 Self [id number] [facility] O [id number] S [id number] MEDICARE C [id number] S [id number] A BS Gay/[place] Medigap Part B [id number] .1.344669.3.227.99.936.68369.0 Family Dependent Y [id number] Medicare Medicare Primary [id number] ..150546.3.227. 99.936.91696.0 Self [id number] BCBS [place] PPO 302/307 [id number] 2 [id number] BS Gay/[place] Medigap Part B [id number] .201327.3.227.99.936.90102.0 Family Dependent Y [id number] Medicare Medicare Primary [id number] .246706.3.227. 99.936.88929.0 Self [id number] BCBS [place] PPO 302/307 [id number] 2 [id number] BS Gay/[place] Medigap Part B [id number] .078127.3.227.99.936.01889.0 Family Dependent Y [id number] Medicare Medicare Primary [id number] .423455.3.227. 99.936.60597.0 Self [id number] BS Gay/[place] Medigap Part B [id number] .943059.3.227.99.936.73258.0 Family Dependent Y [id number] Medicare Medicare Primary [id number] .1.442449.3.227. 99.936.24565.0 Self [id number] EXCELLUS BCBS B [id number] S [id number] BS Gay/[place] Medigap Part B [id number] 2.16.840.1.941551.3.227.99.936.11607.0 Family Dependent Y [id number] Medicare Medicare Primary [id number] 2.16.840.1.592266.3.227. 99.936.09642.0 Self [id number] BS [place] Medigap Part B [id number] 2.16.840.1.118053.3.227.99.936.38885.0 Family Dependent Y [id number] Medicare Medicare Primary [id number] 2.16.840.1.513951.3.227. 99.936.41482.0 Self [id number] BS Gay/[place] Medigap Part B [id number] 2.16840.1.694049.3.227.99.936.55328.0 Family Dependent Y [id number] Medicare Medicare Primary [id number] 2.16840.1.161968.3.227. 99.936.29872.0 Self [id number] BCBS [place] PPO 302/307 [id number] [id number] BS Gay/[place] Medigap Part B [id number] Family Dependent Medicare Medicare Primary [id number] Self [facility] OPTIONS [id number] Problems, Conditions, and Diagnoses Code Display Name Description Problem Type Effective Dates Data Source(s) E55.9 Vitamin D deficiency, unspecified Vitamin D defi ciency, unspecified Diagnosis 01/26/2021 09:57:15 AM [facility] G25.2 Other specified forms of tremor Other specified forms of tremor Diagnosis 12/27/2020 09:50:18 AM [facility] neurology consult neurology consult Diagnosis 11/07/2020 10:52:00 PM [facility] G35 Multiple sclerosis Multiple sclerosis Diagnosis 0 05:47:48 PM [facility] G82.20 Paraplegia, unspecified Paraplegia, unspecified Diagno sis 08/31/2020 09:30:03 AM [facility] R25.1 Tremor, unspecified Tremor, unspecified Diagnosis 1 11/01/2019 08:59:49 AM EST [facility] R53.1 Weakness Weakness Diagnosis 08/31/2020 08:59:49 AM ES T [facility] Surgeries/Procedures Procedure Description Date Indications Data Source(s) DEBRIDEMENT NAIL ANY METHOD 07/06/2021 12:00:00 AM EDT [facility] ([facility] DEBRIDEMENT NAIL ANY METHOD 04/17/2021 12:00:00 AM EDT [facility] ([facility] OFFICE OUTPATIENT VISIT 15 MINUTES 04/06/2021 12:00:00 AM EDT [facility] ([facility]) OFFICE OUTPATIENT VISIT 25 MINUTES 04/06/2021 12:00:00 AM EDT [facility] ([facility]) ELECTROMYOGRAPHY WITH NERVE CONDUCTION <td>ELECTROMYOG MORENO WITH NERVE CONDUCTION</td><td>Routine</td><td>03/02/2021 10:30 AM EDT</td><td> Secondary progressive multiple sclerosis</td><td> </td> 03/02/2021 10:30:00 AM EDT Secondary progressive multiple sclerosis [facility] Secondary progressive multiple sclerosis Chronic Care Management Services Ea Addl 20 Min 2020 12:00:00 AM EDT [facility] ([facility]) Chronic Care MGMT 20 Mins Clinical Staff Time Per Calendar M [facility] 02/15/2021 12:00:00 AM EDT [facility] ([facility] ) Brief Emotional/Behav Assessment W/ Scoring Doc Per Standard Inst 02/14/2021 12:00:00 AM EDT [facility] ([facility] ) OFFICE OUTPATIENT VISIT 25 MINUTES 02/14/2021 12:00:00 AM EDT [facility] ([facility]) DEBRIDEMENT NAIL ANY METHOD 12/12/2020 12:00:00 AM EDT [facility] ([facility] Trans Care SRV W/I 14D Of DC, Comm W/I 2 Dys Med Rec 11/25/2020 12:00:00 AM EST [facility] ([facility] ) DEBRIDEMENT NAIL ANY METHOD 6/> 08/24/2020 12:00:00 AM EST [facility] ([facility] Results ID Date Data Source [id number] 06/26/2021 01:07:58 PM EDT [facility] Name Value Range Interpretation Code Description Data Herlinda rce(s) Supporting Document(s) Progress Note [facility] NVTLFn9xPhDBUxOk73/XMAagJIFxd8YkSKdePDe0PQdbJWPeS8JuZYS1vC8mHJF0QNxBXsXcOyAnGZF7 lbm [file] q+O/gY1lQV27X9Guet++4ng3elOqbH5F+omfkI/vp of marketing/ [file] FzBcVpUUqzTMGFEp4D ID Date Data Source [id number] 06/26/2021 03:30:34 PM T [facility] Name Value Range Interpretation Code Description Data Herlinda rce(s) Supporting Document(s) Leukocytes [#/volume] in Blood by Automated count 4.9 10*3/uL 4-10 [facility] Erythrocytes [#/volume] in Blood by Automated count 4.33 10*6/uL 4.1- 5.3 [facility] Hemoglobin [Mass/volume] in Blood 13.8 g/dL 11.5-15.5 [facility] Hematocrit [Volume Fraction] of Blood by Automated count 40.2 % 3 6-45 [facility] Erythrocyte mean corpuscular volume [Entitic volume] by Auto mated count 93.0 fL 80-96 [facility] Erythrocyte mean corpuscular hemoglobin [Entitic mass] by Automated count 31.9 pg 27-33 [facility] Erythrocyte mean corpuscular hemoglobin concentration [Mass/volume] by Automated count 34.3 g/dL 32.0-36.0 [facility] Erythrocyte distribution width [Ratio] by Automated count 12.7 % 11.5-14.5 [facility] Platelets [#/volume] in Blood by Automated count 310 10*3/uL 150-400 [facility] Differential cell count method - Blood [facility] Neutrophils/100 leukocytes in Blood by Automated count 78 % [facility] Lymphocytes/100 leukocytes in Blood by Automated count 6 % [facility] Monocytes/100 leukocytes in Blood by Automated count 13 % [facility] Eosinophils/100 leukocytes in Blood by Automated count 2 % [facility] Basophils/100 leukocytes in Blood by Automated count 1 % [facility] Neutrophils [#/volume] in Blood by Automated count 3.85 10*3/uL 1.8-7 .0 [facility] Lymphocytes [#/volume] in Blood by Automated count 0.28 10*3/uL 1.2-4 .0 L [facility] Monocytes [#/volume] in Blood by Automated count 0.62 10*3/uL 0-0.8 [facility] Eosinophils [#/volume] in Blood by Automated count 0.10 10*3/uL 0-0.5 [facility] Basophils [#/volume] in Blood by Automated count 0.04 10*3/uL 0-0.2 [facility] Nucleated erythrocytes/100 leukocytes [Ratio] in Blood by Automated count 0 /100{WBCs} 0-0 [facility] ID Date Data Source [id number] 06/26/2021 03:35:47 PM EDT [facility] Name Value Range Interpretation Code Description Data Herlinda rce(s) Supporting Document(s) Albumin [Mass/volume] in Serum or Plasma by Bromocresol green (BCG) dye binding method 4.5 g/dL 3.5-5.2 [facility] Bilirubin.total [Mass/volume] in Serum or Plasma 0.4 mg/dL <1.2 [facility] Bilirubin.direct [Mass/volume] in Serum or Plasma <0.3 [facility] Alkaline phosphatase [Enzymatic activity/volume] in Serum or Plasma 76 U/L 35-104 [facility] Aspartate aminotransferase [Enzymatic activity/volume] in Serum or Plasma 19 U/L <32 [facility] Alanine aminotransferase [Enzymatic activity/volume] in Seru m or Plasma 18 U/L <33 [facility] Protein [Mass/volume] in Serum or Plasma 6.4 g/dL 6.4-8.3 [facility] ID Date Data Source [id number] 02/14/2021 01:43:00 PM EDT [facility] ([facility]) Name Value Range Interpretation Code Description Data Herlinda rce(s) Supporting Document(s) Thyrotropin [Units/volume] in Serum or Plasma by Detec tion limit <= 0.05 mIU/L 1.46 uIU/mL 0.36-3.74 [facility] ([facility] ) Thyroxine (T4) free [Mass/volume] in Serum or Plasma 1.14 ng/dL 0.76- 1.46 [facility] ([facility]) ID Date Data Source [id number] 02/14/2021 01:43:00 PM EDT [facility] ([facility]) Name Value Range Interpretation Code Description Data Herlinda rce(s) Supporting Document(s) Cholesterol [Mass/volume] in Serum or Plasma 209 mg/dL 131-200 [facility] ([facility]) Triglyceride [Mass/volume] in Serum or Plasma 90 mg/dL 30-150 [facility] ([facility]) Cholesterol in HDL [Mass/volume] in Serum or Plasma 57 mg/dL 35-60 [facility] ([facility]) Cholesterol in LDL [Mass/volume] in Serum or Plasma by calcu lation 134 CALC 50-159 [facility] ([facility]) ID Date Data Source [id number] 01/30/2021 03:06:55 PM EDT [facility] Name Value Range Interpretation Code Description Data Herlinda rce(s) Supporting Document(s) Angiotensin converting enzyme [Enzymatic activity/volu me] in Serum or Plasma 38 U/L 14-82 [facility] (NOTE)Performed At: [facility] [address] [id number] Finn MD Ph:[phone] ID Date Data Source [id number] 02/01/2021 03:17:52 PM [facility] Name Value Range Interpretation Code Description Data Herlinda rce(s) Supporting Document(s) Myelin Oligod Glycoprot Negative [facility] (NOTE)No informative autoantibodies were detected in this evaluation. 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 ADDITIONAL INFORMATION This test was developed and its performance characteristics determined by [facility] in a manner consistent with CLIA requirements. This test has not been cleared or approved by the U.S. Food and Drug Administration.Test Performed by:[address] Director: Morris Cordova M.D. Ph.D.; CLIA# [id number] ID Date Data Source [id number] 02/03/2021 04:07:41 PM [facility] Value Range Interpretation Code Description Data Herlinda rce(s) Supporting Document(s) Methylmalonate [Moles/volume] in Serum or Plasma 156 nmol/L 0-378 [facility] Disclaimer [facility] (NOTE)This test was developed and its pe rformance characteristicsdetermined by [facility]. It has not been cleared or approvedby the Food and Drug Administration.Performed At: [facility] [id number] [place], [place] [id number] Lombardo MD Ph:[phone] ID Date Data Source [id number] 02/01/2021 02:12:57 PM [facility] Value Range Interpretation Code Description Data Herlinda rce(s) Supporting Document(s) Aquaporin 4 receptor IgG Ab [Presence] in Serum or Plasma Negative [facility] (NOTE)Recommend repeat testing in 6 ariana hs if clinical suspicion is high. Negative result can occur in the setting of immunosuppression. ADDITIONAL INFORMATION This test was developed and its performance characteristics determined by [facility] in a manner consistent with CLIA requirements. This test has not been cleared or approved by the U.S. Food and Drug Administration.Test Performed by:[address] [id number] Director: Morris Cordova M.D. Ph.D.; CLIA# [id number] ID Date Data Source [id number] 02/07/2021 03:07:03 PM EDT [facility] Name Value Range Interpretation Code Description Data Herlinda rce(s) Supporting Document(s) Index Value 0.35 [facility] MAYRA virus Ab [Presence] in Serum or Plasma by Immunoassay [facility] (NOTE)Results are Indeterminate.Index in terpretive criteria: <0.20 negative 0.20-0.40 indeterminate >0.40 positiveNegativeComment(NOTE)Positive: Antibodies to MAYRA virus (JCV) detected indicating the patient has been exposed to JCV at an undetermined timeNegative: Antibodies to JCV not detectedPerformed At: [facility] [id number] [place], [place] [id number] Jon M MD Ph:[phone](NOTE)Negative: Antibodies to JCV not detected.Indeterminate: Low level [...] US Prescribing Information. ID Date Data Source [id number] 01/26/2021 02:04:27 PM [facility] Value Range Interpretation Code Description Data Herlinda rce(s) Supporting Document(s) Hepatitis A virus IgM Ab [Presence] in Serum or Plasma by Im munoassay Non Reactive [facility] No acute infection, susceptible to infec tion. Hepatitis B virus core IgM Ab [Presence] in Serum or Plasma by Immunoassay Non Reactive [facility] IgM antibodies to HBc were not detected, does not exclude the possibility of exposure to HBV. Hepatitis C virus Ab [Presence] in Serum or Plasma by Immuno assay Non Reactive [facility] No serological evidence of active infect ion. If recent exposure is suspected, test for HCV RNA. Hepatitis B virus surface Ag [Presence] in Serum or Plasma b y Immunoassay Non Reactive [facility] No active or previous infection. Suscept ible to infection. ID Date Data Source [id number] 01/26/2021 02:04:27 PM [facility] Value Range Interpretation Code Description Data Herlinda rce(s) Supporting Document(s) Folate [Mass/volume] in Serum or Plasma 11.70 ng/mL >4.77 [facility] ID Date Data Source [id number] 01/26/2021 02:04:27 PM [facility] Value Range Interpretation Code Description Data Herlinda rce(s) Supporting Document(s) Calcidiol [Mass/volume] in Serum or Plasma 25 ng/mL >30 L [facility] ID Date Data Source [id number] 01/26/2021 02:24:11 PM [facility] Value Range Interpretation Code Description Data Herlinda rce(s) Supporting Document(s) Hepatitis B virus surface Ab [Units/volume] in Serum or Plas ma by Immunoassay >11.4 L [facility] Non ReactiveNo active or previous infect ion. Susceptible to infection. ID Date Data Source [id number] 01/27/2021 02:19:52 PM [facility] Value Range Interpretation Code Description Data Herlinda rce(s) Supporting Document(s) Nuclear Ab Pattern Homogenous [Titer] in Serum <80 [facility] Nuclear Ab pattern.speckled [Titer] in Serum <80 [facility] Nuclear Ab pattern.rim [Titer] in Serum <80 [facility] Nuclear Ab pattern.nucleolar [Titer] in Serum <80 [facility] ID Date Data Source [id number] 01/27/2021 11:57:46 AM [facility] Value Range Interpretation Code Description Data Herlinda rce(s) Supporting Document(s) Cardiolipin IgM Ab [Interpretation] in Serum 4.2 U/mL <20.0 [facility] Negative results do not rule out Antipho spholipid syndrome. Additional APL testing should be considered. Cardiolipin IgG Ab [Interpretation] in Serum <20.0 [facility] Negative results do not rule out Antipho spholipid syndrome. Additional APL testing should be considered. ID Date Data Source [id number] 01/27/2021 11:57:46 AM [facility] Value Range Interpretation Code Description Data Herlinda rce(s) Supporting Document(s) Beta 2 glycoprotein 1 IgM Ab [Units/volume] in Serum 1.7 U/mL <20.0 [facility] Negative results do not rule out Antipho spholipid syndrome. Other APL testing should be considered. Beta 2 glycoprotein 1 IgG Ab [Units/volume] in Serum <20.0 [facility] Negative results do not rule out Antipho spholipid syndrome. Other APL testing should be considered. ID Date Data Source [id number] 02/01/2021 07:02:33 AM [facility] Value Range Interpretation Code Description Data Herlinda rce(s) Supporting Document(s) Varicella zoster virus IgG Ab [Presence] in Serum by Immunoassay 5. 22 {ISR} [facility] PositiveIndicates presence of detectable IgGantibody to Varicella-Zoster Virus bythe DAYNA test. Indicative of current orprevious infection. ID Date Data Source [id number] 01/26/2021 01:01:13 PM [facility] Name Value Range Interpretation Code Description Data Herlinda rce(s) Supporting Document(s) Leukocytes [#/volume] in Blood by Automated count 4.6 10*3/uL 4-10 [facility] Erythrocytes [#/volume] in Blood by Automated count 4.51 10*6/uL 4.1- 5.3 [facility] Hemoglobin [Mass/volume] in Blood 14.0 g/dL 11.5-15.5 [facility] Hematocrit [Volume Fraction] of Blood by Automated count 42.6 % 3 6-45 [facility] Erythrocyte mean corpuscular volume [Entitic volume] by Auto mated count 94.4 fL 80-96 [facility] Erythrocyte mean corpuscular hemoglobin [Entitic mass] by Automated count 31.1 pg 27-33 [facility] Erythrocyte mean corpuscular hemoglobin concentration [Mass/volume] by Automated count 32.9 g/dL 32.0-36.0 [facility] Erythrocyte distribution width [Ratio] by Automated count 12.8 % 11.5-14.5 [facility] Platelets [#/volume] in Blood by Automated count 305 10*3/uL 150-400 [facility] Differential cell count method - Blood [facility] Neutrophils/100 leukocytes in Blood by Automated count 81 % [facility] Lymphocytes/100 leukocytes in Blood by Automated count 4 % [facility] Monocytes/100 leukocytes in Blood by Automated count 12 % [facility] Eosinophils/100 leukocytes in Blood by Automated count 2 % [facility] Basophils/100 leukocytes in Blood by Automated count 1 % [facility] Neutrophils [#/volume] in Blood by Automated count 3.73 10*3/uL 1.8-7 .0 [facility] Lymphocytes [#/volume] in Blood by Automated count 0.16 10*3/uL 1.2-4 .0 L [facility] Monocytes [#/volume] in Blood by Automated count 0.55 10*3/uL 0-0.8 [facility] Eosinophils [#/volume] in Blood by Automated count 0.10 10*3/uL 0-0.5 [facility] Basophils [#/volume] in Blood by Automated count 0.04 10*3/uL 0-0.2 [facility] Nucleated erythrocytes/100 leukocytes [Ratio] in Blood by Automated count 0 /100{WBCs} 0-0 [facility] ID Date Data Source [id number] 01/26/2021 01:39:21 PM [facility] Name Value Range Interpretation Code Description Data Herlinda rce(s) Supporting Document(s) Cobalamin (Vitamin B12) [Mass/volume] in Serum or Plasma 521 pg/ml 2 11-946 [facility] ID Date Data Source [id number] [facility] Interpretation Code Description Data Herlinda rce(s) Supporting Document(s) Bilirubin.direct [Mass/volume] in Serum or Plasma <0.3 [facility] ID Date Data Source [id number] 01/26/2021 01:39:21 PM [facility] Value Range Interpretation Code Description Data Herlinda rce(s) Supporting Document(s) Ceruloplasmin [Mass/volume] in Serum or Plasma 22 mg/dl 16-45 [facility] ID Date Data Source [id number] 01/26/2021 01:39:21 PM [facility] Value Range Interpretation Code Description Data Herlinda rce(s) Supporting Document(s) IgG [Mass/volume] in Serum or Plasma 436 mg/dL 700-1600 L [facility] IgA [Mass/volume] in Serum or Plasma 164 mg/dL 70-400 [facility] IgM [Mass/volume] in Serum or Plasma 88 mg/dL 30-230 [facility] ID Date Data Source [id number] 01/26/2021 01:39:21 PM [facility] Value Range Interpretation Code Description Data Herlinda rce(s) Supporting Document(s) Albumin [Mass/volume] in Serum or Plasma by Bromocresol green (BCG) dye binding method 4.4 g/dL 3.5-5.2 [facility] Bilirubin.total [Mass/volume] in Serum or Plasma 0.4 mg/dL <1.2 [facility] Calcium [Mass/volume] in Serum or Plasma 9.7 mg/dL 8.8-10.2 [facility] Chloride [Moles/volume] in Serum or Plasma 105 mmol/L 98-107 [facility] Creatinine [Mass/volume] in Serum or Plasma 0.59 mg/dL 0.50-0.90 [facility] Glucose [Mass/volume] in Serum or Plasma 95 mg/dL 70-140 [facility] Alkaline phosphatase [Enzymatic activity/volume] in Serum or Plasma 85 U/L 35-104 [facility] Potassium [Moles/volume] in Serum or Plasma 4.4 mmol/L 3.4-5.1 [facility] Protein [Mass/volume] in Serum or Plasma 6.4 g/dL 6.4-8.3 [facility] Sodium [Moles/volume] in Serum or Plasma 141 mmol/L 136-145 [facility] Aspartate aminotransferase [Enzymatic activity/volume] in Serum or Plasma 18 U/L <32 [facility] Urea nitrogen [Mass/volume] in Serum or Plasma 14 mg/dL 8-23 [facility] Osmolality of Serum or Plasma by calculation 292 mosm/kg 275-300 [facility] Creatinine/Urea nitrogen [Mass Ratio] in Serum or Plasma 24 [facility] Bicarbonate [Moles/volume] in Serum 27 mmol/L 22-29 [facility] Alanine aminotransferase [Enzymatic activity/volume] in Seru m or Plasma 14 U/L <33 [facility] Anion gap 3 in Serum or Plasma 9 mmol/L 8-15 [facility] Glomerular filtration rate/1.73 sq M pre dicted among non-blacks [Volume Rate/Area] in Serum or Plasma by Creatinine-based formula (MDRD) >6 0 [facility] Glomerular filtration rate/1.73 sq M pre dicted among blacks [Volume Rate/Area] in Serum or Plasma by Creatinine-based formula (MDRD) >60 [facility] ID Date Data Source [id number] 01/27/2021 10:30:17 AM [facility] Name Value Range Interpretation Code Description Data Herlinda rce(s) Supporting Document(s) Lupus anticoagulant neutralization plate let [Time] in Platelet poor plasma by Coagulation assay 2.3 sec <8.0 [facility] ID Date Data Source [id number] 01/31/2021 05:06:18 AM [facility] Value Range Interpretation Code Description Data Herlinda rce(s) Supporting Document(s) Copper [Mass/volume] in Serum or Plasma 98 ug/dL 80-158 [facility] (NOTE)This test was developed and its pe rformance characteristicsdetermined by [facility]. It has not been cleared or approvedby the Food and Drug Administration. Detection Limit = 5 Please note reference interval changePerformed At: [address] [id number] Lombardo MD Ph:[id number] ID Date Data Source [id number] 01/31/2021 05:06:18 AM [facility] Value Range Interpretation Code Description Data Herlinda rce(s) Supporting Document(s) Zinc [Mass/volume] in Serum or Plasma 85 ug/dL 44-115 [facility] (NOTE)This test was developed and its pe rformance characteristicsdetermined by [facility]. It has not been cleared or approvedby the Food and Drug Administration. Detection Limit = 5 Please note reference interval changePerformed At: [address] [id number] Sanjai MD Ph:[id number] ID Date Data Source [id number] 01/27/2021 01:59:13 [facility] Interpretation Code Description Data Herlinda rce(s) Supporting Document(s) Sjogrens syndrome-A extractable nuclear Ab [Units/volume] in Serum by Immunofluorescence 5 [AU]/mL [address] [place] [address] Sjogrens syndrome-B extractable nuclear Ab [Units/volume] in Serum by Immunofluorescence 6 [AU]/mL [address] [place] [address] Gomez extractable nuclear Ab [Units/volume] in Serum b y Immunofluorescence 9 [AU]/mL [address] [place] [address] Ribonucleoprotein extractable nuclear Ab [Units/volume] in Serum by Immunofluorescence 12 U/ML [address] [place] [address] SCL-70 extractable nuclear Ab [Units/volume] in Serum 7 [AU]/mL [address] [place] [address] Chen-1 extractable nuclear Ab [Units/volume] in Serum by Immunofluorescence 10 [AU]/mL [address] [place] [address] DNA double strand Ab [Units/volume] in Serum by Immunofluore scence 0 [IU]/mL [address] [place] [address] Centromere Ab [Units/volume] in Serum 7 [AU]/mL [address] [place] [address] Histone IgG Ab [Units/volume] in Serum 6 [AU]/mL [address] [place] [address] ID Date Data Source [id number] 01/27/2021 09:58:20 AM [facility] Value Range Interpretation Code Description Data Herlinda rce(s) Supporting Document(s) Reference lab test name [facility] Reference lab name [Identifier] [facility] Service comment [facility] ID Date Data Source [id number] 01/26/2021 02:08:59 PM EDT [facility] Value Range Interpretation Code Description Data Herlinda rce(s) Supporting Document(s) HIV 1+2 Ab+HIV1 p24 Ag [Presence] in Serum or Plasma by Immu noassay Non Reactive [facility] Negative for HIV-1 p24 antigenand HIV-1/ HIV-2 antibodies. Nolaboratory evidence of HIVinfection. ID Date Data Source [id number] 01/26/2021 01:14:21 PM EDT [facility] Name Value Range Interpretation Code Description Data Herlinda rce(s) Supporting Document(s) Homocysteine [Moles/volume] in Serum or Plasma 8.5 umol/L <15.0 [facility] ID Date Data Source [id number] 01/26/2021 11:38:53 AM EDT [facility] Name Value Range Interpretation Code Description Data Herlinda rce(s) Supporting Document(s) Progress Note [facility] YXTFOm2jEiUCMsIr13/XAEyeTEJxf3UcDFhjWFn4NPwaHVDkN2WlJXZ8hU5tCNX8XBwRCqHiXfTfYVN8 lbm [file] u8VUy1A2us3vEQUKT3niNHR2rAwTNu8hDiAdwkokEe/A60Dr7+dpQWUR3rxZeZ2ovEEosBRFWBjo+Josué [file] CONSULTING MANAGER/7JIgtkvFLZnvXXHELJj6zRJUbXmBA+qSlqkVG9I [file] ICAgICAgICAgICAgICAgICAgICAgICAgICAgICAgICAgICAgICAgICAgICAgICAgICAgICAgICAgICAN CiAgICAgICAgICAgICAgICAgICAgICAgICAgICAgIC AgICAgICAgICAgICAgICAgICAgICAgICAgICAgICAgICAgICAgICAgICAgICAgICAgICAgICAgICAgIC AgICAgICAgICANCiAgICAgICAgICAgICAgICAgICAgICAgICAgICAgICAgICAgICAgICAgICAgICAgIC AgICAgICAgICAgICAgICAgICAgICAgICAgICAgICAg ICAgICAgICAgICAgICAgICAgICANCiAgICAgICAgICAgICAgICAgICAgICAgICAgICAgICAgICAgICAg ICAgICAgICAgICAgICAgICAgICAgICAgICAgICAgICAgICAgICAgICAgICAgICAgICAgICAgICAgICAg ICANCiAgICAgICAgICAgICAgICAgICAgICAgICAgIC AgICAgICAgICAgICAgICAgICAgICAgICAgICAgICAgICAgICAgICAgICAgICAgICAgICAgICAgICAgIC AgICAgICAgICAgICANCiAgICAgICAgICAgICAgICAgICAgICAgICAgICAgICAgICAgICAgICAgICAgIC AgICAgICAgICAgICAgICAgICAgICAgICAgICAgICAg ICAgICAgICAgICAgICAgICAgICAgICANCiAgICAgICAgICAgICAgICAgICAgICAgICAgICAgICAgICAg ICAgICAgICAgICAgICAgICAgICAgICAgICAgICAgICAgICAgICAgICAgICAgICAgICAgICAgICAgICAg ICAgICANCiAgICAgICAgICAgICAgICAgICAgICAgIC AgICAgICAgICAgICAgICAgICAgICAgICAgICAgICAgICAgICAgICAgICAgICAgICAgICAgICAgICAgIC AgICAgICAgICAgICAgICANCiAgICAgICAgICAgICAgICAgICAgICAgICAgICAgICAgICAgICAgICAgIC AgICAgICAgICAgICAgICAgICAgICAgICAgICAgICAg ICAgICAgICAgICAgICAgICAgICAgICAgICANCiAgICAgICAgICAgICAgICAgICAgICAgICAgICAgICAg ICAgICAgICAgICAgICAgICAgICAgICAgICAgICAgICAgICAgICAgICAgICAgICAgICAgICAgICAgICAg ICAgICAgICANCjw/hBOoV6ksdNNhfjS2V5jjHl6QPa 1XWE2dw8JrINDdZCsbucDvUuzMAgKsYXRqPpeLEbh1ZLetFK8PwYJfN3SqI5IwKYrtXP1OTRRjBRYneY ZqCWYoZEEdYcV7SJWmXJiwGA8QfNVvSNbvAWSaCZGtWyPuUEOpVZOnMLHvPQHzWWOPLPEuEBTnVlFySP ChQIUpVC1WIDUrN888zxVoPb3QZu7FTnCeBR5dkz7L CxOdYDByBbtJJhr4BBdjPJ2SjGRjkNLqKlPjERXPWiHtK2hgb4TsFkInFHMBSSyvVM5Vc8CrhMPoZTt+ Bj4CYG0gg1YcZQsqXqWiIJ4tmd7DCCgFPfTlQ1UmbWclOHQni0ckAKIiZJ4fdWLcZRH6LLEzbyG3BBKh GLPPvjL7WIRIFQVbwWX9IvZoKnCwPIEmOOj0SSBDZD bYPvUsJ3Frt3OtKfR3LRSfIhAaTJnbUTMzDbR3EJ99cLtpJG0DFADrXYAmYY66NNP5CEOuVo4ZWt9BHm DoZP6tpf2RYzonZOYyJgmFOnw6FNlgWY9UzUPpU5VxdWRqo3aLVpLtI9NAAHYkDEZyXr9NMBDgEpJbPH MoWVdqSX6vTDElWWJIgUncjiF9VG7AWR9mzwVoLR0B CmJrIh2yHx1BGdKaS1KhN3AzZCVaNZRLPYknUY9GLKpiBB9iRH7Vx4AAvZKdqX4haz1LKFZwVWQqNajm mb2KAcutP0W3qSnqOGBhQqVvSLGXRWkpYM5CAVPpMJT3KPZrEKJtHGSILoDrJ39kYO8HF2Fbp09nZkJ3 RDUkUlCyOHwaZJ65sCbilkBesWAabUvgLP0SCp8+DQ fhdtDfZpsTHbdlNVBUTtFmNfbZYpDhLRLiBFGbVMAiJxC7GkBoMf6RQZUfWUJmASFkBjMpQDGeFPMuOS bcHDXrTTA1GZH0FSHrYXEtRJ4UOmWmIADqUFJiZbjqMVThAHNfor1NPXBrICTbCEI0OpJgJVOjFXFgUP qsXCUbTNPgCTokFRAjTDMtFX5NVkSgMTLtRJK7BZSs XTXfTGHill4OFYDvTDFdMaCjIlSfPOPnMHFvPZkgMUHsFQC4YOSmBIGnSEMuXF2AEpWdMRPpHZhyEOFx VRFlWFVabm6OYIRrAZVqRLK6ERYeGYWnVAHtGRyqPUQwHAS7EWY9ZGSeJPKzVP9HNtPwFQYnMYIhSfOy QGTkCRXeug3MGXFlOBQsBBC6WsGpNAIoVNKhHWujGW NrRLT1LaxsEPPtRJYrUU6ADoEoWTLuDfW4JzDdRDUxRGLoxn1YPRSlGESjTYw7HFGqAWJvILNeAAdyMZ LeMBOyTkVxVGXgXTFpND6AJzSaOCMfHvU6RXvxSJHwNLGost7PQBCjEOJlRdP3UGSnMBXtFRYwXOqiDC DfGBMjFLW1QIUcUAZoSK6SIzVhFZMoQuJbYEIyYGJf BHTsze8YYLUbHLDdGaBsTSWxUTNrBAXzIMskOGIgSSV4JOA8BXLnAEUiDT8BNaAqZANrClEcDDEpFGHk LVSuog7YFDJrVWEnGPB7IqHtBTNvHPDxKYotHNIzITN0JcCjODSjMKOnKN5JJzEzKZVhUvJ6LBjgOKCq KOXvmh0KGIRsIKRhPzbwRkZtLYXrJNNcSWvdHYObFV R3WHJ3RDUlXVMbUH6NWzCzFXEcNpajMAFlOVDsYQIbru9HVVJkRFKuCLQaJWKeBOQwREAzBLuzEDFqAW F4UyB1HSGnMXOpWZ7GQuFcDVVtVruoHWBuZLIdKCBkyr6ZJNXjLKJvJVmjSYLdRMSlFNHnUQpbNQChYP DzGvk9CEWnMBVuGX4ZHpAiQWCcDCLoQxJyJKZfTSRi lx5UCQKpBDU6TDMyTKKxHOAdVIOhQYl7dnXprOWgYGw1SI0CR0ItfwVkSvdGAm2Hv270GAJ5KCEwEy5H Y6hgYb9hKIPjJRFONb1MGXg5TTZwZYU3BKKlPNBxAHm2TgC3LfD3ZxZlUBZcEjK3CFQ+VPn6FkLsUGtm DzZ4BTSbFOb7CRIaGPcxYNUiIjRdMCg4Pr2kRZRCGk6+NVdgzNEsyGamUIJEOfLzEmPxBSmxRFUEJl4J ID Date Data Source [id number] 02/01/2021 01:38:00 PM [facility] Molecular Genetics ReportName: Mihir CHIMRN: [id number] Number: [id number] Date: 01/26/2021 00:00Received Date: 01/26/2021 14:29Physician(s): JORY DOYLE MD MCGRAW, COREY A, MDSpecimen(s) ReceivedA: Peripheral Blood-[facility] for [id number] REQUESTED/PERFORMED: CYP2C9 to LabcorpCOMMENTS:This is a duplicate order. This study was previously performed with [facility]. Results from the earlier study can be found in [facility] under theMedia tab. tjm/kgElectronically Signed By Hiram Gomez, PhD Attending Pathologist 02/01/2021 13:38:11 Name Value Range Interpretation Code Description Data Herlinda rce(s) Supporting Document(s) ID Date Data Source [id number] 01/13/2021 08:18:09 AM EDT [facility] Name Value Range Interpretation Code Description Data Herlinda rce(s) Supporting Document(s) Progress Note [facility] [id number] lbm [file] [id number] ID Date Data Source [id number] 01/13/2021 08:18:04 AM EDT [facility] Name Value Range Interpretation Code Description Data Herlinda rce(s) Supporting Document(s) Progress Note [facility] [id number]YXQaR7MzMUT7sV5rRFY8DVzPFxSyEbDbODHo lbm [file] [id number]HPIm= ID Date Data Source [id number] 11/07/2020 09:33:00 PM EST [facility] ([facility] Name Value Range Interpretation Code Description Data Herlinda rce(s) Supporting Document(s) Color, Urine RFX Laboratory test result [facility] ([facility]) Appearance, Urine RFX Laboratory test result [facility] ([facility]) Specific [place] Ur Auto RFX 1.004 1.002-1.035 [facility] ([facility]) PH,Urine RFX 7.0 units 5.0-9.0 [facility] ([facility]) Protein, Urine Auto RFX [facility] Glucose, Urine (Ua) Auto RFX Laboratory test result [facility] ([facility]) Urobilinogen, Urine Auto RFX 0.2 mg/dL 0.0-2.0 [facility] ([facility]) Ketone, Urine Auto RFX Laboratory test result [facility] ([facility] Nitrite, Urine Auto RFX Laboratory test result [facility] ([facility]) Bilirubin, Urine Auto RFX Laboratory test result [facility] ([facility]) Blood, Urine Blood RFX Laboratory test result [facility] ([facility]) Leukocyte Esterase Ur Auto RFX Laboratory test result [facility] ([facility]) WBC, Urine Auto RFX 0 /HPF 0-3 [facility] ([facility]) RBC, Urine Auto RFX 0 /HPF 0-3 [facility] ([facility]) Bacteria, Urine Auto RFX Laboratory test result [facility] ([facility]) Squam Epithelial Cell Ur Aurfx 0 /HPF 0-6 [facility] ([facility] Hyaline Cast, Urine Auto RFX 0 /LPF 0-1 M [facility] ([facility]) ID Date Data Source [id number] 11/07/2020 07:19:00 PM EST [facility] ([facility]) Name Value Range Interpretation Code Description Data Herlinda rce(s) Supporting Document(s) Influenza A Amplification Laboratory test result [facility] ([facility]) Negative results do not preclude influen za or RSV virus infection and should not be used as the sole basis for treatment or other patient management decisions. Influenza B Amplification Laboratory test result [facility] ([facility] Negative results do not preclude influen za or RSV virus infection and should not be used as the sole basis for treatment or other patient management decisions. RSV Amplification Laboratory test result [facility] ([facility] Negative results do not preclude influen za or RSV virus infection and should not be used as the sole basis for treatment or other patient management decisions. Laboratory test finding (navigational concept) Laboratory test result [facility] ([facility]) A false negative result may occur if [...] pathogens. DISCLAIMER: Testing was performed using the [employer] SARS-CoV-2 test. This test was developed and its performance characteristics determined by [employer]. This test has not been FDA cleared [...] or revoked sooner. ID Date Data Source [id number] 11/07/2020 07:19:00 PM EST [facility] ([facility]) Name Value Range Interpretation Code Description Data Herlinda rce(s) Supporting Document(s) Thyrotropin [Units/volume] in Serum or Plasma by Detec tion limit <= 0.05 mIU/L 2.810 uIU/ML 0.358-3.740 [facility] ([facility] Thyroxine (T4) free [Mass/volume] in Serum or Plasma 1.51 ng/dL 0.76- 1.46 [facility] ([facility]) ID Date Data Source [id number] 11/07/2020 07:19:00 PM EST [facility] ([facility]) Name Value Range Interpretation Code Description Data Herlinda rce(s) Supporting Document(s) Glucose, Fasting 86 mg/dL 70-100 [facility] ([facility]) Creatinine For GFR 0.52 mg/dL 0.55-1.30 [facility] ([facility]) Blood Urea Nitrogen 15 mg/dL 7-18 [facility] ([facility]) Sodium Level 139 meq/L 136-145 [facility] ([facility]) Glomerular Filtration Rate Laboratory test result [facility] ([facility]) <content>Units are mL/min/1.73 m2</content>
<content></content>
<content>Chronic Kidney Disease Staging per NKF:</content>
<content></content>
<content>Stage I & II GFR >=60 Normal to Mildly Decreased</content>
<content>Stage III GFR 30- 59 Moderately Decreased</content>
<content>Stage IV GFR 15-29 Severely Decreased</content>
<content>Stage V GFR <15 Very Little GFR Left</content>
<content>ESRD GFR <15 on PHYSICAL THERAPY ASSISTANT INSTRUCTOR</content>
<content></content> Potassium Serum 4.2 meq/L 3.5-5.1 [facility] ([facility]) Chloride Level 102 meq/L 98-107 [facility] ([facility]) Carbon Dioxide Level 29 meq/L 21-32 [facility] ([facility]) Anion Gap 8 meq/L 8-16 [facility] Calcium Level 9.1 mg/dL 8.8-10.2 [facility] ([facility]) ID Date Data Source [id number] 11/07/2020 07:19:00 PM EST [facility] ([facility]) Name Value Range Interpretation Code Description Data Herlinda rce(s) Supporting Document(s) Ast/Sgot 9 U/L 7-37 [facility] Alt/SGPT 31 U/L 12-78 [facility] ([facility]) Alkaline Phosphatase 88 U/L 45-117 [facility] ([facility]) Bilirubin,Total 0.6 mg/dL 0.2-1.0 [facility] ([facility]) Bilirubin,Direct 0.2 mg/dL 0.0-0.2 [facility] ([facility]) Total Protein 6.1 GM/DL 6.4-8.2 [facility] ([facility]) Albumin/Globulin Ratio 1.4 1.2-2.2 [facility] ([facility]) Albumin 3.6 GM/DL 3.2-5.2 [facility] ([facility]) ID Date Data Source [id number] 11/07/2020 07:19:00 PM EST [facility] ([facility]) Name Value Range Interpretation Code Description Data Herlinda rce(s) Supporting Document(s) CPK Creatine Phosphokinase 26 U/L 26-192 [facility] ([facility]) MB/CK Relative Index 3.85 [facility]) <content>DIAGNOSIS CRITERIA</content>
<content>MMB ng/ml Relative Index (RI)</content>
<content>NON-AMI < or = 5 N/A</content>
<content>[place] ZONE > 5 < or = 4</content>
<content>AMI > 5 > 4</content>
<content></content> CK-MB Value Mass Laboratory test result [facility] ([facility]) Troponin I Laboratory test result [facility] ([facility]) <content>Troponin I Reference Interval f or Siemens [place] LOCI:</content>
<content></content>
<content>99th Percentile= 0.00-0.045 ng/ml</content>
<content></content>
<content>Risk Stratification:</content>
<content><= 0.10 ng/ml Decreased Risk for Adverse Clinical</content>
<content>Events.</content>
<content>0.10-1.50 ng/ml Increased Risk for Adverse Clinical</content>
<content>Events. Evaluation of additional</content>
<content>criterion and/or repeat testing in 2-6</content>
<content>hours is suggested to rule out myocardial</content>
<content>damage.</content>
<content>>= 1.50 ng/ml Indicative of Myocardial Injury.</content>
<content></content> ID Date Data Source [id number] 11/07/2020 07:19:00 PM EST [facility] ([facility]) Name Value Range Interpretation Code Description Data Herlinda rce(s) Supporting Document(s) aPTT in Blood by Coagulation assay 25.8 s 24.2-38.5 [facility] ([facility]) ID Date Data Source [id number] 11/07/2020 07:19:00 PM EST [facility] ([facility]) Name Value Range Interpretation Code Description Data Herlinda rce(s) Supporting Document(s) Red Blood Count 4.72 10 4.00-5.40 [facility] ([facility]) White Blood Count 10.0 10 4.0-10.0 [facility] ([facility]) Hemoglobin 14.5 g/dL 12.0-15.5 [facility] [facility]) Hematocrit 43.1 % 36.0-47.0 [facility] ([facility]) Mean Corpuscular Hemoglobin 30.7 pg 27.0-33.0 [facility] ([facility]) Mean Corpuscular Volume 91.3 fl 80.0-96.0 [facility] ([facility]) Mean Corpuscular HGB Conc 33.6 g/dL 32.0-36.5 [facility] NT ([facility]) Red Cell Distribution Width 11.9 % 11.5-14.5 [facility] ([facility]) Neutrophils % 78.2 % 36.0-66.0 [facility] ([facility]) Platelet Count, Automated 315 10 150-450 [facility] ([facility]) Gage % 9.8 % 0.0-8.0 [facility]) Lymph % 7.2 % 24.0-44.0 [facility] [facility] Eos % 3.3 % 0.0-3.0 [facility] [facility]) Baso % 0.3 % 0.0-1.0 [facility] [facility] Immature Granulocyte % 1.2 % 0-3.0 [facility] ([facility]) Nucleated Red Blood Cell % 0.0 % 0-0 [facility] ([facility]) Lymph # 0.7 10 1.5-5.0 [facility] [facility]) Neutrophils # 7.9 10 1.5-8.5 [facility] ([facility]) Eos # 0.3 10 0.0-0.5 [facility] [facility]) Gage # 1.0 10 0.0-0.8 [facility]) Baso # 0.0 10 0.0-0.2 [facility]) ID Date Data Source [id number] 11/07/2020 07:19:00 PM EST [facility] Name Value Range Interpretation Code Description Data Herlinda rce(s) Supporting Document(s) SARS coronavirus 2 RNA [Presence] in Res piratory specimen by TOO with probe detection NEGATIVE [facility] This lab was ordered by [facility] a nd reported by [facility]. 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+AcO4pvxXANkKZmi9QpN1fNnELOwteDDvrvsA1GwmJyxOdjVJFT6YhT+OV+4DXgLeoGBIHRgFe+Xo [file] AgICAgICAgICAgICAgICAgICAgICAgICAgICAgICAgICAgICAgICAgICAgICAgICAgICAgICAgICAgIC AgICAgICAgICAgICAgICAgICAgICAgICAgICAgDQog ICAgICAgICAgICAgICAgICAgICAgICAgICAgICAgICAgICAgICAgICAgICAgICAgICAgICAgICAgICAg ICAgICAgICAgICAgICAgICAgICAgICAgICAgICAgICAgICAgICAgDQogICAgICAgICAgICAgICAgICAg ICAgICAgICAgICAgICAgICAgICAgICAgICAgICAgIC AgICAgICAgICAgICAgICAgICAgICAgICAgICAgICAgICAgICAgICAgICAgICAgICAgDQogICAgICAgIC AgICAgICAgICAgICAgICAgICAgICAgICAgICAgICAgICAgICAgICAgICAgICAgICAgICAgICAgICAgIC AgICAgICAgICAgICAgICAgICAgICAgICAgICAgICAg DQogICAgICAgICAgICAgICAgICAgICAgICAgICAgICAgICAgICAgICAgICAgICAgICAgICAgICAgICAg ICAgICAgICAgICAgICAgICAgICAgICAgICAgICAgICAgICAgICAgICAgDQogICAgICAgICAgICAgICAg ICAgICAgICAgICAgICAgICAgICAgICAgICAgICAgIC AgICAgICAgICAgICAgICAgICAgICAgICAgICAgICAgICAgICAgICAgICAgICAgICAgICAgDQogICAgIC AgICAgICAgICAgICAgICAgICAgICAgICAgICAgICAgICAgICAgICAgICAgICAgICAgICAgICAgICAgIC AgICAgICAgICAgICAgICAgICAgICAgICAgICAgICAg ICAgDQogICAgICAgICAgICAgICAgICAgICAgICAgICAgICAgICAgICAgICAgICAgICAgICAgICAgICAg ICAgICAgICAgICAgICAgICAgICAgICAgICAgICAgICAgICAgICAgICAgICAgDQogICAgICAgICAgICAg ICAgICAgICAgICAgICAgICAgICAgICAgICAgICAgIC AgICAgICAgICAgICAgICAgICAgICAgICAgICAgICAgICAgICAgICAgICAgICAgICAgICAgICAgDQogIC AgICAgICAgICAgICAgICAgICAgICAgICAgICAgICAgICAgICAgICAgICAgICAgICAgICAgICAgICAgIC AgICAgICAgICAgICAgICAgICAgICAgICAgICAgICAg EEGyACHxPOv3E3kdQHDeEGGqYU3nMDz1Pz7+CQuGYjFlSIP3xpYogL1DVZ8ms1FbBJxqJDKbl6RxMJm0 KH6BFFFmNImeZD8XLMgppd0UJSJhIPRudZUTi0vfVzYqRDW0QTLcDdnkVX3CUDZvJ6pwyaXtIUPfNSGW IDcgMCBSIDkgMCBSIDExIDAgUiAxMyAwIFIgMTUgMC PVLE2XLsOiJ8FidK30FGDGVb9+DDdmpwTmOgsFBwJwWRDdg3FlNBa9QZ2JMIJiAtwux6LtXzSqXLIWHM pfQQ6VGCJ9NLPiMJOdIt5QORZqE871gqCdOS4BKp2HQfWnQB4gcl1KAlSrVPQuPxjAFov0HExbDJ5RmW JjWVdKou9mebFsomOJx3IbzyEinPNGHPMunvFjLSdd SwPxBo9zZLyyGnXqYSTdRu6jYtHyRrNuIEZ5AOZjZH4nKMjuIR5ZLHG2WIopLGLjLYIkS3lGHmTcELQh RkPsiHttRI9UNpEuX7JbrmLffGOdAgKnBLHPIo6+UXequoVkJwwOTxG6PDZpp1QfLWm4TK7RZJDuKXvr GJ2FQGPngT3tXOozBM9FUgQdQRFbQRWVBxZbR13ffR SdSIn0Y0WgRmIvESRsBzjaZNAzZUtqMaBzDWLrZeUuNNgjFQ0+ID4+LPlkCY7MYOxkhxLoCAJgGr8JDV VtIDVmHX2sZVFcMTDsR0L4eQekGFJWAjTuO1bzxvaaDG5iHIJjK653wGapajHfXMVeELCbVb9TANReSR F4IRPhtEYrTtGsKNKPVWmvCW0CcPWaNGK1jX5cRUqt LLSkFHIoX3kXFoBymMwfYB68fHyzfaEbyVIkJBc+Xx3EIH7mf4GiSQw1ayXmKOwiIKK9OIkpGASoRGFs EPDmKID1OWE8UBLYJgCjQQYaSDReXWuiJPFvPYKnbh0IHRBvYXDqJnW1TbWcPEQkHBTqGImfJMWsYQV5 IlR5QWTfXEMfKF3WXgJiLVUdGLUjDRjnYQJxUSDgds 8ZWQFbXLQaTjGwXfYyXNKvVWPpZMaiOFMjWPKmRIBjSZEfXAUxBY4QWkLlUOHxPLh8ZTPcQFOtWCShfp 9JXWZwNRTqLap6WPBeRMGdNIZjYLptPBCuLXWvLlU5OWBqXLNoJH8JWgTbGGIiKFC8HqHpJQRrQAIulx 6GZSNjRIQrCcyzVzFyOCLhRNJkODasBCAeGQZ6CDCx CBJyVILhPQ3OJiUhLYMeMCl8NaAiMZKzCQGprb3BHPKqFMGqVIS2RCDvJDOzDQYfNOkxCMLzMSK3PDF0 VSNiLVYwSL1XBdFxSVAlRuEeQAFtCMSvDDElpa0HRRHlEFSuLYP2IgXuAXYbMLLmOBleCEBmJTTnOyI1 CGSvYNBmTE4KVyWkWPOtTiX3OWNpUKKeASPafv4MWM PoXUIaJpIzATMnIUKkNBVtPXsfHBWqOPAnBpQsPIYxQNPcRZ5ZHmZySLKmDoZ3OLGaQVMtOZJuxy5XYT ZrRYOnQIHcDXSpATKdBNInWXhkLXSiXNS1WIP3RYXqSOCtBK2CIqEiZPQsYrD9TpNoANQbUGQkqv8CON AmGRGgRGEsKTWsDMMrMWFjGDjcHZXeGZA7YMKwUEZo HBZqSF6LZeDyXFHnYpBlEWAfPNTxWYPzfv0EZMZmIIFoQkM9DsHqCRPpSPAmZCjhYGOwUMA3EVggRODr TIPtGJ6OHlMgGPSrLsF5TNgyRGIoGPAkdo8NLAXvKDNiBOW3WIJoLBFuKYRkDVkfFBUrYEM3NOOkPQHe DUDcIY1VWzUwINXsUyf7RDZdHRByOOZhjb7UzRRvnH muhf3PFBpQOm2FxMunGAX9WIpzHm1ocIQnFPUbMBINHc8OkzJkPHKlABGPEBooTPKuNWKkXsZ3NMWrFV RaDpZxCOQjSeU3Pwv9DCZ8MfRuI1U4PqM9M9YbAXk1TDL5SsH9QZU7VjF0RbuzGclvQVQdSfFiMmw+IF 0gDQo+Zn0Qo4KgdsD7xgJmMVbnRKmrLY1RQYQEN2UNQv== ID Date Data Source [id number] 09/13/2020 03:07:00 PM EST [facility] ([facility] Name Value Range Interpretation Code Description Data Herlinda rce(s) Supporting Document(s) Laboratory test finding (navigational concept) Laboratory test result [facility] ([facility]) REFERENCE INTERVAL: Negative No informative autoantibodies were detected in this evaluation. 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 ADDITIONAL INFORMATIO N This test was developed and its performance characteristics determined by [facility] in a manner consistent with CLIA requirements. This test has not been cleared or approved by the U.S. Food and Drug Administration. Homocysteine [Moles/volume] in Serum or Plasma Laboratory test result [facility] ([facility]) SEE SEPARATE REPORT ID Date Data Source [id number] 09/13/2020 03:07:00 PM EST [facility] ([facility]) Name Value Range Interpretation Code Description Data Herlinda rce(s) Supporting Document(s) Index Value Laboratory test result [facility] T ([facility]) SEE SEPARATE REPORT Interpretation Laboratory test result [facility] ([facility]) SEE SEPARATE REPORT JCV Antibody Laboratory test result [facility] ([place] [facility] SEE SEPARATE REPORT JCV Antibody By Inhibition Laboratory test result [facility] ([facility]) SEE SEPARATE REPORT Interpretation Laboratory test result [facility] ([facility]) SEE SEPARATE REPORT ID Date Data Source [id number] 09/13/2020 03:07:00 PM EST [facility] ([facility]) Name Value Range Interpretation Code Description Data Herlinda rce(s) Supporting Document(s) Antinuclear Antibodies Laboratory test result [facility] ([place] [facility]) See Separate Report Testing performed at reference lab. Report copy to follow on a separate form. 09/30/20 REF LAB#:[phone] Herpes Zoster, Varicella IgG Laboratory test result [facility] ([facility]) SEE SEPARATE REPORT Methylmalonate [Moles/volume] in Serum or Plasma Laboratory [facility]u [facility] SEE SEPARATE REPORT Ceruloplasmin [Mass/volume] in Serum or Plasma Laboratory test result [facility] ([facility]) SEE SEPARATE REPORT Copper [Mass/volume] in Serum or Plasma Laboratory test result [facility] ([facility]) SEE SEPARATE REPORT Zinc [Mass/volume] in Serum or Plasma Laboratory test result [facility] ([place] [facility]) See Separate Report Aquaporin 4 receptor IgG Ab [Units/volum e] in Serum or Plasma by Immunofluorescence [facility] ID Date Data Source [id number] 09/13/2020 03:07:00 PM EST [facility] ([facility]) Name Value Range Interpretation Code Description Data Herlinda rce(s) Supporting Document(s) Cobalamin (Vitamin B12) [Mass/volume] in Serum or Plasma 548 pg/mL 2 47-911 [facility] ([place] [facility] VITAMIN B12 NORMAL RANGE NORMAL 247 - 911 PG/ML INDETERMINATE 211 - 246 PG/ML DEFICIENT LESS THAN 211 PG/ML Hepatitis B virus surface Ab [Presence] in Serum by Im munoassay Laboratory test result [facility] ([place] [facility] HIV 1+2 Ab [Presence] in Serum Laboratory test result [facility] ([facility]) <content>This assay was performed utiliz ing [...] [Mass/volume] in Red Blood Cells 10.3 ng/mL [facility] ([facility]) FOLATE NORMAL RANGE NORMAL GREATER THAN 5.4 NG/ML INDETERMINATE 3.4-5.4 NG/ML DEFICIENT LESS THAN 3.4 NG/ML Calcidiol [Mass/volume] in Serum or Plasma 23.5 ng/mL 30.0-100.0 [facility] Miscellaneous Test Lab Laboratory test result [facility] ([facility]) See Separate Report Testing performed at reference lab . Report copy to follow on a separate form. 09/23/20 REF LAB#:[id number] Order this test in the future with mneumonic [] . Silverman = [] , CPT CODES = []. Sample was sent to [] . Specimen requirements are [] . Please call the lab with any other questions. ID Date Data Source [id number] 09/13/2020 03:07:00 PM EST [facility] ([facility] Name Value Range Interpretation Code Description Data Herlinda rce(s) Supporting Document(s) Hepatitis B Surface Antigen Laboratory test result [facility] ([facility]) Hepatitis C Virus Brandi Index 0.1 INDEX [facility] ([facility]) Negative Not infected with HCV, unless recent infection is suspected or other evidence exists to indicate HCV infection. Hepatitis A Antibody Igm Laboratory test result [facility] ([facility]) Hepatitis B Core Antibody Igm Laboratory test result [facility] ([facility]) ID Date Data Source [id number] 09/13/2020 03:07:00 PM EST [facility] ([facility]) Name Value Range Interpretation Code Description Data Herlinda rce(s) Supporting Document(s) Glucose, Fasting 96 mg/dL 70-100 [facility] ([facility]) Blood Urea Nitrogen 14 mg/dL 7-18 [facility]) Creatinine For GFR 0.61 mg/dL 0.55-1.30 [facility] ([facility]) Glomerular Filtration Rate Laboratory test result [facility] ([facility]) <content>Units are mL/min/1.73 m2</content>
<content></content>
<content>Chronic Kidney Disease Staging per NKF:</content>
<content></content>
<content>Stage I & II GFR >=60 Normal to Mildly Decreased</content>
<content>Stage III GFR 30- 59 Moderately Decreased</content>
<content>Stage IV GFR 15-29 Severely Decreased</content>
<content>Stage V GFR <15 Very Little GFR Left</content>
<content>ESRD GFR <15 on PHYSICAL THERAPY ASSISTANT INSTRUCTOR</content>
<content></content> Sodium Level 138 meq/L 136-145 [facility] ([facility]) Potassium Serum 4.4 meq/L 3.5-5.1 [facility] ([facility]) Carbon Dioxide Level 29 meq/L 21-32 [facility] ([facility]) Chloride Level 105 meq/L 98-107 [facility] ([facility]) Ast/Sgot 12 U/L 7-37 [facility] Anion Gap 4 meq/L 8-16 [facility] [facility]) Calcium Level 9.7 mg/dL 8.8-10.2 [facility] ([facility]) Alkaline Phosphatase 125 U/L 45-117 [facility] ([facility]) Alt/SGPT 23 U/L 12-78 [facility] [facility] Bilirubin,Total 0.5 mg/dL 0.2-1.0 [facility] ([facility]) Albumin 4.2 GM/DL 3.2-5.2 [facility] ([facility] [facility] Total Protein 7.2 GM/DL 6.4-8.2 [facility] ([facility]) Albumin/Globulin Ratio 1.4 1.2-2.2 [facility] ([facility]) ID Date Data Source [id number] 09/13/2020 03:07:00 PM EST [facility] ([facility]) Name Value Range Interpretation Code Description Data Herlinda rce(s) Supporting Document(s) White Blood Count 6.9 10 4.0-10.0 [facility] ([facility]) Red Blood Count 4.64 10 4.00-5.40 [facility] ([facility]) Hemoglobin 14.2 g/dL 12.0-15.5 [facility] [facility] Hematocrit 42.7 % 36.0-47.0 [facility] [facility] Mean Corpuscular Volume 92.0 fl 80.0-96.0 [facility] ([facility]) Mean Corpuscular HGB Conc 33.3 g/dL 32.0-36.5 [facility] ([facility]) Mean Corpuscular Hemoglobin 30.6 pg 27.0-33.0 [facility] ([facility]) Red Cell Distribution Width 11.7 % 11.5-14.5 [facility] ([facility]) Platelet Count, Automated 373 10 150-450 [facility] ([facility]) Neutrophils % 79.7 % 36.0-66.0 [facility] ([facility]) Lymph % 9.8 % 24.0-44.0 [facility] [facility]) Gage % 7.9 % 0.0-5.0 [facility] [facility]) Baso % 0.6 % 0.0-1.0 [facility] [facility]) Eos % 1.7 % 0.0-3.0 [facility] [facility]) Immature Granulocyte % 0.3 % 0-3.0 [facility] ([facility]) Nucleated Red Blood Cell % 0.0 % 0-0 [facility] ([facility]) Gage # 0.5 10 0.0-0.8 [facility] Lymph # 0.7 10 1.5-5.0 [facility] Neutrophils # 5.5 10 1.5-8.5 [facility] ([facility]) Eos # 0.1 10 0.0-0.5 [facility] [facility] Baso # 0.0 10 0.0-0.2 [facility] ([place] [facility]) ID Date Data Source [id number] 09/13/2020 03:07:00 PM EST [facility] ([facility]) Name Value Range Interpretation Code Description Data Herlinda rce(s) Supporting Document(s) IgA [Mass/volume] in Serum or Plasma 211.0 mg/dL 70-400 [facility] ([facility]) ID Date Data Source [id number] 09/13/2020 03:07:00 PM EST [facility] ([facility]) Name Value Range Interpretation Code Description Data Herlinda rce(s) Supporting Document(s) Bilirubin,Direct 0.2 mg/dL 0.0-0.2 [facility] ([facility]) ID Date Data Source [id number] 09/22/2020 05:05:00 PM EST [facility] Name Value [...] individual results of thistest.Mayzent (siponimod) [package insert]. [place], [place]:[employer]; 2019.For more information on interpreting this report, pleasevisit [email or web address] A or call Customer Service [phone] between the hours of 6:30am to 5:00pm PTM through Saturday.This assay meets the standards for performanc echaracteristics and all other business quality assurance analyst and assurancerequirements established by CLIA. The results should not beused as the sole criteria for patient management. This testwas developed and its performance characteristicsdetermined by [employer]. It has not been clearedor approved by the FDA. This document contains private andconfidential health information protected by state andfederal law. If you have received this document in error,please call [phone]. The provision of this free testis not contingent on any requirement to utilize or purchasethis test, or any other product or service, in the future.Additionally, provision of this free test by [employer] ([email or web address]) is a form of patient supportwith no [...] PDF . [facility] ID Date Data Source [id number] 09/19/2020 07:05:00 PM EST [facility] Name Value Range Interpretation Code Description Data Herlinda rce(s) Supporting Document(s) [employer] Informed Consent Form [facility] Please Fax back to [phone]. [address] ates require laboratoriesto have documentation [...] of the sample when testing is complete. [facility] did not receive any documentation of informed consentfor above mentioned patient and ordered tests. Please check thestatement applicable to this patient and sign below so that [facility] the results for this patient. [] I authorize and confirm patient consent for the above mentionedgenetic test(s). [] I have provided appropriate informed consent for the above mentioned test(s) and documentation of this consent is maintained in the patient record. Health care provider signature Date Printed name Fax back to [facility] at [phone] [facility] ID Date Data Source [id number] 08/31/2020 05:58:50 PM [facility] Name Value Range Interpretation Code Description Data Herlinda rce(s) Supporting Document(s) Progress Note [facility] [id number] [facility] [file] [id number] ID Date Data Source [id number] 08/15/2020 02:20:00 PM EST [facility] ([facility]) Name Value Range Interpretation Code Description Data Herlinda rce(s) Supporting Document(s) JCV Antibody Laboratory test result [facility] <content>Index interpretive criteria:</c ontent>
<content><0.20 negative</content>
<content>0.20-0.40 indeterminate</content>
<content>>0.40 positive</content>
<content></content> Index Value 0.14 [facility] ([facility]) Interpretation Laboratory test result [facility] . Negative: Antibodies to JCV not detected. [...] JCV Antibody By Inhibition Laboratory [facility] ([facility]) Interpretation Laboratory test result [facility] ([facility]) . Positive: Antibodies to MAYAR virus (JCV) detected indicating the patient has been exposed to JCV at an undetermined time Negative: Antibodies to JCV not detected Performed at: [facility] [address] [place], [place] [id number] Respiratory Scientist: Farooq Askew MD, Phone: [phone] Performed at: - [facility] [address] [id number] Respiratory Scientist: Vale Kilpatrick MD, Phone: [phone] ID Date Data Source [id number] 08/15/2020 02:18:00 PM EST [facility] ([facility]) Name Value Range Interpretation Code Description Data Herlinda rce(s) Supporting Document(s) Creatinine 0.5 mg/dL 0.6-1.3 [facility] Urea nitrogen [Mass/volume] in Serum or Plasma 16 mg/dL 7-18 [facility]) Glucose [Mass/volume] in Serum or Plasma 93 mg/dL 74-99 [facility] ([facility]) 100-125 mg/dL PRE-DIABETES/FASTING >126 mg/dL DIABETES/FASTING Chloride [Moles/volume] in Serum or Plasma 102 meq/L 98-107 [facility] ([facility]) Potassium [Moles/volume] in Serum or Plasma 4.6 meq/L 3.5-5.1 [facility] ([facility]) Sodium [Moles/volume] in Serum or Plasma 139 meq/L 136-145 [facility] ([facility]) Carbon dioxide, total [Moles/volume] in Serum or Plasma 29 meq/L 21 -32 [facility] ([facility]) Calcium [Mass/volume] in Serum or Plasma 9.5 mg/dL 8.5-10.1 [facility] ([facility]) Alkaline phosphatase isoenzyme [Units/volume] in Serum or Pl asma 92 mg/dL 46-116 [facility] ([facility]) Total Bilirubin 0.5 mg/dL 0.2-1.0 [facility] ([facility]) Alanine aminotransferase [Enzymatic activity/volume] in Seru m or Plasma 20 U/L 12-78 [facility] ([facility]) Aspartate aminotransferase [Enzymatic activity/volume] in Serum or Plasma 14 U/L 15-37 [facility] ([facility] ) Proteinase 3 Ab [Units/volume] in Serum 7.0 g/dL 6.4-8.2 [facility] ([facility]) Albumin [Mass/volume] in Serum or Plasma 4.0 g/dL 3.4-5.0 [facility] ([facility]) A/G Ratio 1.33 CALC 1.00-1.90 [facility]) Glomerular filtration rate/1.73 sq M pre dicted among non-blacks [Volume Rate/Area] in Serum or Plasma by Creatinine-based formula (MDRD) Laboratory test result [facility] ([facility] ) Glomerular filtration rate/1.73 sq M pre dicted among blacks [Volume Rate/Area] in Serum or Plasma by Creatinine-based formula (MDRD) Laboratory test result [facility] ([facility]) <content>CHRONIC KIDNEY DISEASE STAGING PER NKF</content>
<content></content>
<content>STAGE I & II GFR >= 60 NORMAL TO MILDLY DECREASED</content>
<content>STAGE III GFR 30-59 MODERATELY DECREASED</content>
<content>STAGE IV GFR 15-29 SEVERELY DECREASED</content>
<content>STAGE V GFR <15 VERY LITTLE GFR LEFT</content>
<content>ESRD GFR <15 ON PHYSICAL THERAPY ASSISTANT INSTRUCTOR</content>
<content></content> ID Date Data Source [id number] 08/15/2020 02:18:00 PM EST [facility] ([facility]) Name Value Range Interpretation Code Description Data Herlinda rce(s) Supporting Document(s) Hemoglobin [Mass/volume] in Blood 14.4 g/dL 12.0-18.0 [facility] ([facility]) Leukocytes [#/volume] in Blood by Automated count 6.8 x10*3/UL 4.1-10 .9 [facility] ([facility]) Erythrocytes [#/volume] in Blood by Automated count 4.55 x10*6/UL 4.2 0-6.30 [facility] ([facility]) MCH 31.7 pg 26.0-32.0 [facility] [facility] Hematocrit [Volume Fraction] of Blood by Automated count 41.2 % 3 7.0-51.0 [facility] ([facility]) MCV 90.4 fL 80.0-97.0 [facility] [facility] Platelets [#/volume] in Blood by Automated count 340 x10*3/UL 140-440 [facility] ([facility]) MCHC 35.0 g/dL 31.0-38.0 [facility] [facility] Erythrocyte distribution width [Ratio] by Automated count 12.4 % 11.6-13.7 [facility] ([facility]) Lymph % 10.1 % 10.0-58.5 [facility] [facility] Mid % 2.6 % 1.7-9.3 [facility] [facility] MPV 7.8 FL 7.8-11.0 [facility] [facility] Neut % 87.3 % 37.0-92.0 [facility] [facility] Lymph # 0.6 x10*3/UL 0.6-4.1 [facility] ([facility]) Mid # 0.3 x10*3/UL 0.1-0.6 [facility] ([facility]) Neut # 5.9 x10*3/UL 2.0-7.8 [facility] ([facility]) ID Date Data Source [id number] 07/27/2020 01:28:00 PM EST [facility] ([facility]) Name Value Range Interpretation Code Description Data Herlinda rce(s) Supporting Document(s) MAYRA Virus Dna PCR Whole Blood Laboratory test result [facility]) No JCV DNA detected This test was developed and its performance characteristics determined by [facility]. It has not been cleared or approved by the Food and Drug Administration. The FDA has determined that such clearance or approval is not necessary. Performed at: [address] [id number] Respiratory Scientist: Grupo Silvestre MD, Phone: [phone] ID Date Data Source [id number] 07/27/2020 01:28:00 PM EST [facility] ([facility]) Name Value Range Interpretation Code Description Data Herlinda rce(s) Supporting Document(s) MAYRA virus DNA [Units/volume] (viral load) in Blood by Probe and target amplification method Laboratory test result [facility] ([facility]) ID Date Data Source [id number] 07/27/2020 01:26:00 PM EST [facility] ([facility]) Name Value Range Interpretation Code Description Data Herlinda rce(s) Supporting Document(s) Leukocytes [#/volume] in Blood by Automated count 6.4 x10*3/UL 4.1-10 .9 [facility] ([facility]) Erythrocytes [#/volume] in Blood by Automated count 4.55 x10*6/UL 4.2 0-6.30 [facility] ([facility]) Hematocrit [Volume Fraction] of Blood by Automated count 40.5 % 3 7.0-51.0 [facility] ([facility]) Hemoglobin [Mass/volume] in Blood 14.5 g/dL 12.0-18.0 [facility] ([facility]) MCH 31.8 pg 26.0-32.0 [facility] [facility] MCHC 35.8 g/dL 31.0-38.0 [facility] [facility]) Erythrocyte distribution width [Ratio] by Automated count 12.0 % 11.6-13.7 [facility] ([facility]) MCV 89.0 fL 80.0-97.0 [facility] [facility]) MPV 7.9 FL 7.8-11.0 [facility] ([facility]) Platelets [#/volume] in Blood by Automated count 335 x10*3/UL 140-440 [facility] ([facility]) Lymph % 7.1 % 10.0-58.5 [facility] [facility] Neut % 85.5 % 37.0-92.0 [facility] [facility] Lymph # 0.4 x10*3/UL 0.6-4.1 [facility] ([facility]) Mid % 7.4 % 1.7-9.3 [facility] [facility] Neut # 5.5 x10*3/UL 2.0-7.8 [facility] ([facility]) Mid # 0.5 x10*3/UL 0.1-0.6 [facility] ([facility]) ID Date Data Source [id number] 06/30/2020 01:21:00 PM EDT [facility] ([facility]) Name Value Range Interpretation Code Description Data Herlinda rce(s) Supporting Document(s) MAYRA Virus Dna PCR Whole Blood Laboratory test result [facility] ([facility]) No JCV DNA detected This test was developed and its performance characteristics determined by [facility]. It has not been cleared or approved by the Food and Drug Administration. The FDA has determined that such clearance or approval is not necessary. Performed at: [address] [id number] Respiratory Scientist: Grupo Silvestre MD, Phone: [phone] ID Date Data Source [id number] 06/30/2020 01:21:00 PM EDT [facility] ([facility] Name Value Range Interpretation Code Description Data Herlinda rce(s) Supporting Document(s) MAYRA Virus Dna PCR Whole Blood Laboratory test result [facility] ([facility]) No JCV DNA detected This test was developed and its performance characteristics determined by [facility]. It has not been cleared or approved by the Food and Drug Administration. The FDA has determined that such clearance or approval is not necessary. Performed at: [address] [id number] Respiratory Scientist: Grupo Silvestre MD, Phone: [phone] ID Date Data Source [id number] 06/30/2020 01:21:00 PM EDT [facility] ([facility]) Name Value Range Interpretation Code Description Data Herlinda rce(s) Supporting Document(s) MAYRA virus DNA [Units/volume] (viral load) in Blood by Probe and target amplification method Laboratory test result [facility] ([facility]) ID Date Data Source [id number] 06/30/2020 01:19:00 PM EDT [facility] ([facility]) Name Value Range Interpretation Code Description Data Herlinda rce(s) Supporting Document(s) Urea nitrogen [Mass/volume] in Serum or Plasma 22 mg/dL 7-18 [facility] ([facility]) Creatinine 0.6 mg/dL 0.6-1.3 [facility] ([facility]) Glucose [Mass/volume] in Serum or Plasma 83 mg/dL 74-99 [facility] ([facility]) 100-125 mg/dL PRE-DIABETES/FASTING >126 mg/dL DIABETES/FASTING Sodium [Moles/volume] in Serum or Plasma 140 meq/L 136-145 [facility] ([facility]) Chloride [Moles/volume] in Serum or Plasma 105 meq/L 98-107 [facility] ([facility]) Potassium [Moles/volume] in Serum or Plasma 4.8 meq/L 3.5-5.1 [facility] ([facility]) Calcium [Mass/volume] in Serum or Plasma 9.1 mg/dL 8.5-10.1 [facility] ([facility]) Alkaline phosphatase isoenzyme [Units/volume] in Serum or Pl asma 94 mg/dL 46-116 [facility] ([facility]) Total Bilirubin 0.5 mg/dL 0.2-1.0 [facility] ([facility]) Carbon dioxide, total [Moles/volume] in Serum or Plasma 30 meq/L 21 -32 [facility] ([facility]) Aspartate aminotransferase [Enzymatic activity/volume] in Serum or Plasma 10 U/L 15-37 [facility] ([facility] ) Albumin [Mass/volume] in Serum or Plasma 3.8 g/dL 3.4-5.0 [facility] ([facility]) Alanine aminotransferase [Enzymatic activity/volume] in Seru m or Plasma 19 U/L 12-78 [facility] ([facility]) Proteinase 3 Ab [Units/volume] in Serum 6.6 g/dL 6.4-8.2 [facility] ([facility]) A/G Ratio 1.36 CALC 1.00-1.90 [facility] [facility] Glomerular filtration rate/1.73 sq M pre dicted among non-blacks [Volume Rate/Area] in Serum or Plasma by Creatinine-based formula (MDRD) Laboratory test result [facility] Glomerular filtration rate/1.73 sq M pre dicted among blacks [Volume Rate/Area] in Serum or Plasma by Creatinine-based formula (MDRD) Laboratory test result [facility] <content>CHRONIC KIDNEY DISEASE STAGING PER NKF</content>
<content></content>
<content>STAGE I & II GFR >= 60 NORMAL TO MILDLY DECREASED</content>
<content>STAGE III GFR 30-59 MODERATELY DECREASED</content>
<content>STAGE IV GFR 15-29 SEVERELY DECREASED</content>
<content>STAGE V GFR <15 VERY LITTLE GFR LEFT</content>
<content>ESRD GFR <15 ON PHYSICAL THERAPY ASSISTANT INSTRUCTOR</content>
<content></content> ID Date Data Source [id number] 06/30/2020 01:19:00 PM EDT [facility] ([facility]) Name Value Range Interpretation Code Description Data Herlinda rce(s) Supporting Document(s) Leukocytes [#/volume] in Blood by Automated count 6.0 x10*3/UL 4.1-10 .9 [facility] ([facility]) NOTE: RESULT VERIFIED. Hematocrit [Volume Fraction] of Blood by Automated count 39.8 % 3 7.0-51.0 [facility] ([facility]) Erythrocytes [#/volume] in Blood by Automated count 4.47 x10*6/UL 4.2 0-6.30 [facility] ([facility]) Hemoglobin [Mass/volume] in Blood 14.2 g/dL 12.0-18.0 [facility] ([facility]) MCV 89.0 fL 80.0-97.0 [facility] [facility] MCH 31.7 pg 26.0-32.0 [facility] [facility] MCHC 35.7 g/dL 31.0-38.0 [facility] ([place] [facility] Erythrocyte distribution width [Ratio] by Automated count 11.9 % 11.6-13.7 [facility] ([facility]) MPV 7.7 FL 7.8-11.0 [facility]) Platelets [#/volume] in Blood by Automated count 305 x10*3/UL 140-440 [facility] ([facility]) Mid % 2.4 % 1.7-9.3 [facility] [facility] Lymph % 8.1 % 10.0-58.5 [facility] ([facility] [facility] Neut % 89.5 % 37.0-92.0 [facility] Mid # 0.2 x10*3/UL 0.1-0.6 [facility] ([facility]) Lymph # 0.4 x10*3/UL 0.6-4.1 [facility] ([facility]) Neut # 5.4 x10*3/UL 2.0-7.8 [facility] ([facility]) Procedure Social History Code Duration Value Status Description Data Source(s ) Alcohol intake 01/26/2021 12:00:00 AM EDT Current non-d marie of alcohol (finding) completed Current non-drinker of alcohol (finding) [facility] Tobacco use and exposure 01/26/2021 12:00:00 AM EDT Never used co mpleted Never used [facility] Smoking 01/26/2021 12:00:00 AM EDT Never smoker completed Never s moker [facility] Alcohol intake 12/27/2020 12:00:00 AM EDT Current non-d marie of alcohol (finding) completed Current non-drinker of alcohol (finding) [facility] Alcohol intake 10/26/2020 12:00:00 AM EST Current non-d marie of alcohol (finding) completed Current non-drinker of alcohol (finding) [facility] Alcohol intake 08/31/2020 12:00:00 AM EST Current non-d marie of alcohol (finding) completed Current non-drinker of alcohol (finding) [facility] Vital Signs ID Date Data Source UNK Name Value Range Interpretation Code Description Data Source(s) Systolic blood pressure 104 mm[Hg] 104 mm[Hg] [facility] ([facility]) Diastolic blood pressure 70 mm[Hg] 70 mm[Hg] [facility]) Heart rate 71 /min 71 /min [facility] ([facility]) Body height 64.50 [in_i] 64.50 [in_i] [facility] ([facility]) 5'4.50" Body weight 141.00 [lb_av] 141.00 [lb_av] [facility] ([facility]) Body mass index (BMI) [Ratio] 23.8 kg/m2 23.8 k g/m2 [facility] ([facility]) Systolic blood pressure 126 mm[Hg] 126 mm[Hg] [facility]) RT Arm Diastolic blood pressure 84 mm[Hg] 84 mm[Hg] [facility] ([facility]) RT Arm Heart rate 76 /min 76 /min [facility] Body height 64.50 [in_i] 64.50 [in_i] [facility] ([facility]) 5'4.50" Body weight 135.00 [lb_av] 135.00 [lb_av] [facility] ([facility]) Body mass index (BMI) [Ratio] 22.8 kg/m2 22.8 k g/m2 [facility] ([facility]) Systolic blood pressure 104 mm[Hg] 104 mm[Hg] [facility] ([facility]) Diastolic blood pressure 80 mm[Hg] 80 mm[Hg] [facility] ([facility]) Heart rate 90 /min 90 /min [facility] ([facility]) Body height 64.50 [in_i] 64.50 [in_i] [facility] ([facility]) 5'4.50" Oxygen saturation in Arterial blood by Pulse oximetry 96 % 96 % [facility] ([facility]) RM Air Oxygen saturation in Arterial blood by Pulse oximetry 97 % 97 % [facility] ([facility]) RM Air Systolic blood pressure 122 mm[Hg] 122 mm[Hg] [facility] Diastolic blood pressure 78 mm[Hg] 78 mm[Hg] [facility] ([facility]) Heart rate 82 /min 82 /min [facility] ([facility]) Body height 64.50 [in_i] 64.50 [in_i] [facility] ([facility]) 5'4.50" Body weight 140.00 [lb_av] 140.00 [lb_av] [facility] T ([facility]) Body height 64.50 [in_i] 64.50 [in_i] [facility] ([facility]) 5'4.50" Diastolic blood pressure 60 mm[Hg] 60 mm[Hg] [facility]) Systolic blood pressure 112 mm[Hg] 112 mm[Hg] [facility] Heart rate 86 /min 86 /min [facility] Oxygen saturation in Arterial blood by Pulse oximetry 98 % 98 % [facility] ([facility]) RM Air Body mass index (BMI) [Ratio] 23.7 kg/m2 23.7 k g/m2 [facility] ([facility]) Systolic blood pressure 120 mm[Hg] 120 mm[Hg] [facility] Diastolic blood pressure 78 mm[Hg] 78 mm[Hg] [facility] ([facility]) Heart rate 86 /min 86 /min [facility] ([facility]) Body height 64.50 [in_i] 64.50 [in_i] [facility] 5'4.50" Body weight 142.00 [lb_av] 142.00 [lb_av] [facility] T ([facility]) Body mass index (BMI) [Ratio] 24.0 kg/m2 24.0 k g/m2 [facility] ([facility]) ID Date Data Source [id number] 04/26/2021 10:40:39 AM [facility] Name Value Range Interpretation Code Description Data Source(s) WEIGHT RECORDED 142.[address] [facility] Body height Measured 65 in 65 in [facility] ID Date Data Source [id number] 01/13/2021 08:18:09 AM [facility] Name Value Range Interpretation Code Description Data Source(s) WEIGHT RECORDED 141.[address] [facility] Body height Measured 65.5 in 65.5 in [facility] ID Date Data Source [id number] 11/07/2020 10:52:22 PM [facility] Name Value Range Interpretation Code Description Data Source(s) TRANSFER FROM [facility] ID Date Data Source [id number] 10/26/2020 02:49:20 PM [facility] Value Range Interpretation Code Description Data Source(s) WEIGHT RECORDED [address] [facility] ID Date Data Source [id number] 09/01/2020 10:27:34 AM [facility] Value Range Interpretation Code Description Data Source(s) WEIGHT RECORDED [address] [facility] Patient Treatment Plan of Care Planned Activity Planned Date Details Description Data Source (s) Baclofen 10 MG Oral Tablet 02/24/2021 12:00:00 AM [facility] gabapentin 400 MG Oral Capsule 01/09/2021 12:00:00 AM [facility] Propranolol Hydrochloride 10 MG Oral Tablet 12/27/2020 12:00:00 AM [facility] Mayzent 2 MG Oral Tablet (Siponimod Fumarate) 11/04/2020 12:00:00 A [facility] methylPREDNISolone Sodium Succ 1000 MG I njection Solution Reconstituted (SOLU-MEDROL) 10/26/2020 12:00:00 AM EST [facility] gabapentin 300 MG Oral Capsule 08/20/2020 12:00:00 AM EST [facility] dimethyl fumarate 240 MG Delayed Release Oral Capsule [facility] ropinirole 1 MG Oral Tablet [facility] Fluoxetine 40 MG Oral Capsule [facility]
[2021-08-08] MEDS ORDERED: GABA-283 PO (22:29)
[2021-08-08] MEDS ORDERED: TIZA4TAB4 PO (22:29)
[2021-08-08] MEDS ORDERED: MACR100C43 PO (22:29)
[2021-08-08] MEDS ORDERED: DULO1CAP6 PO (22:29)
[2021-08-08] MEDS ORDERED: SIPO2TAB PO (22:29)
[2021-08-08] MEDS ORDERED: BACL10TA2 PO (22:29)
[2021-08-08] MEDS ORDERED: HOME MED LIST COMPLETE! XX SCH (22:30)
--- NOTE | 2021-08-08 22:52 | ECGEPIP ---
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
[2021-08-08 23:30] VITALS: BP 159/101
--- NOTE | 2021-08-08 23:32 | HPEPDOC ---
[facility] Medical History & Physical Date of Admission Aug 08, 2021 Date of Service: Aug 08, 2021 Primary Care Physician: LISANDRO DE LA TORRE DO Attending Physician: JULIANA OCASIO MD History and Physical CHIEF COMPLAINT: Bilateral leg weakness HISTORY OF PRESENT ILLNESS: Patient is a 61-year-old female with a history of MS in the recent diagnosis of UTI who presents with bilateral leg weakness for the past day. Patient reports that she has bilateral leg weakness at baseline however feels that it is worse today. Patient denies any visual disturbances and denies any other weakness.patient reports some numbness and tingling going down the front of her right leg to her knee. She denies any other numbness or paresthesias. The patient reports that she called her neurologist in [place] who suggested that she come in to be seen at this time. Patient's last possible flare was in October 2020 at which time she presented to [facility]. Patient had a brain MRI done ordered by her neurologist in [place] in April 2021. Patient reports that she last saw the neurologist in [place] in June 2021 and was told that there were no active lesions. Patient was star anaid on siponimod in October or November 2020. Patient took Tecfidera before that. For patient's UTI that was diagnosed 4 days ago patient has been taking Macrobid for the last 4 days. Patient denies any active symptoms at this time. Patient also reports that she took an qzhi-dze-lhldoxs medication called Azo which turns her urine orange. She reports that she has been taking this for the last 4 days as well. Patient's healthcare proxy is her daughter Sydney Davies to be contacted at [phone]. REVIEW OF SYSTEMS: General: Patient reports that she felt fevers prior to coming in HEENT: Patient reports a mild headache that is at her baseline, patient attributes this to stress Cardiovascular: Patient denies chest pain Respiratory: Patient denies shortness of breath, cough GI: Patient denies abdominal pain, nausea, vomiting, diarrhea : Patient denies increased frequency or pain with urination Extremities: Patient denies swelling or pain in extremities Neurological: See HPI Skin: Patient denies any new rashes or lesions. Hematologic: Patient denies any easy bruising. Lymphatic: Patient denies any lumps lumps or bumps in neck, axilla, or groin PAST MEDICAL/SURGICAL HISTORY: Multiple sclerosis Neurogenic bladder Depression Seasonal allergies Essential tremors Endometriosis Hysterectomy Molar tooth extraction SOCIAL HISTORY: Resides in: Apartment on the first floor and there are no steps to go in Children: Daughter is patient support and healthcare proxy Tobacco use: Denies ETOH: Denies Illicit drug use: Denies IV drug use: Denies FAMILY HISTORY: Parents: Hypertension, type 2 diabetes mellitus, UC, Asthma, Pre-DM Sister: Multiple sclerosis Sister: SLE ALLERGIES: Please see below. HOME MEDICATIONS: Please see below. PHYSICAL EXAMINATION: Vital Signs Date Time Temp Pulse Resp B/P (MAP) Pulse Ox O2 Delivery O2 Flow Rate FiO2 08/08/21 18:20 99.0 73 18 131/82 (98) 95 Room Air GENERAL APPEARANCE: Patient is in no acute distress, alert and oriented x3. HEENT: EOMI, no rhinorrhea, no ocular discharge, PERRLA, pupils appear larger than normal however are reactive. CARDIOVASCULAR: Regular rate and rhythm no murmurs rubs or gallops. LUNGS: Clear to auscultation bilaterally. ABDOMEN: Soft, nontender, nondistended, bowel sounds present, no hepatomegaly appreciated. MUSCULOSKELETAL: Upper extremity strength is 5 out of 5, left lower extremity strength is 2 out of 5 right lower extremity strength is 3 out of 5. NEUROLOGICAL: Cranial nerves II to XII are intact. PSYCHIATRIC: Affect full and open. LABORATORY DATA: IMAGING: Chest x-ray, 08/08/2021-no evidence of acute cardiopulmonary pathology MICROBIOLOGY: COVID neg ASSESSMENT/PLAN: #Pseudo Multiple sclerosis Flair vs Acute MS Flair Consider consulting neurology in a.m. to discuss whether the pt needs an MRI to r/o true MS flair and need for steroids -will treat UTI which can cause pseudo MS flair for now Continue patient's home medication of siponimod, patient reports that her daughter can bring this in tomorrow morning Please follow-up and make sure that the patient's daughter brings in her Pat Ahmad Patient is on fall precautions PT OT ordered Out of bed with assist only as patient requires a walker at home #Partially resolved UTI Nitrofurantoin was held and levofloxacin was started due to patient's continued positive urine #History of essential tremors Continue propranolol, holding parameters heart rate less than 60 #History of depression Continue home medication duloxetine #Chronic pain Continue patient's home baclofen, gabapentin and tizanidine #DVT prophylaxis Increased coagulopathic risk due to MS Heparin 5000 units twice daily ordered Disposition: will likely need to be transferred to ARU for rehab after at least 2 midnight's stay Home Medications Scheduled Baclofen (Baclofen) 10 Mg Tablet, 10 MG PO QID Cholecalciferol (Vitamin D3) (Vitamin D3) 25 Mcg Tablet, 25 MCG PO DAILY Duloxetine Hcl (Duloxetine HCl) 60 Mg Capsule.dr, 60 MG PO DAILY Gabapentin (Gabapentin) 400 Mg Capsule, 400 MG PO QID Nitrofurantoin Monohyd/M-Cryst (Macrobid 100 mg Capsule) 100 Mg Capsule, 100 MG PO BID STARTED ON 08/04/21 [place]-3 Fatty Acids/Fish Oil (Fish Oil 1,000 mg Capsule) 1,000 Mg Cap, 1,000 MG PO QHS Propranolol HCl (Propranolol HCl) 20 Mg Tablet, 20 MG PO BID Siponimod (Mayzent) 2 Mg Tablet, 2 MG PO QHS Tizanidine HCl (Tizanidine HCl) 4 Mg Tablet, 4 MG PO QHS Allergies Coded Allergies: Sulfa (Sulfonamide Antibiotics) (Verified Adverse Reaction, Mild, nausea, 08/26/19) A-FIB/CHADSVASC A-FIB History Current/History of A-Fib/PAF?: No Current PO Anticoag Therapy: No GME ATTESTATION GME ATTESTATION My faculty preceptor for this patient encounter was physically present during the encounter and was fully available. All aspects of the patient interview, examination, medical decision making process, and medical care plan development were reviewed and approved by the faculty preceptor. The faculty preceptor is aware and concurs with the plan as stated in the body of this note and will attest to such by his/her cosignature. ATTENDING NOTE I independently saw face to face, discussed the case with , edited the H&P and agree with the findings as documented Aiden Dyer DO Aug 08, 2021 23:32 JULIANA OCASIO MD Aug 09, 2021 02:22
[2021-08-09] MEDS: LevoFLOXacin 500 MG TABLET PO SCH ×2 (00:14→22:12)
[2021-08-09] MEDS: GABAPENTIN 400MG CAP PO SCH ×5 (00:14→22:13)
[2021-08-09] MEDS: tiZANidine 4 MG TAB PO SCH ×2 (00:14→22:13)
[2021-08-09] MEDS: BACLOFEN 10 MG TAB PO SCH ×5 (00:14→22:13)
[2021-08-09] MEDS: PROPRANOLOL 20 MG TAB PO SCH ×3 (00:14→22:12)
[2021-08-09 06:00] VITALS: BP 122/77
--- NOTE | 2021-08-09 08:42 | IPNPDOC ---
Text Note Date of Service The patient was seen on 08/09/21. NOTE Subjective: Patient is a 61-year-old female admitted overnight with lower extremity weakness and suspected MS versus pseudo-MS flare. No acute events overnight. Patient states she is typically able to ambulate and live independently with a 4 wheeled rolling walker, however for the past 48 hours she has had worsening weakness in her lower extremities. She denies any further dysuria or frequency. She currently denies any fever, chills, chest pain, difficulty breathing, abdominal pain, nausea, vomiting, diarrhea, rashes. Objective: General: Tired appearing female in no acute distress resting comfortably in bed. HEENT: NC, AT. EOMI, no scleral icterus. No pharyngeal erythema, mucous membranes moist. Neck: No lymphadenopathy or JVD CV: RRR, Normal S1 and S2. No murmurs, gallops, or rubs. Resp: CTAB with full breath sounds. No wheezes, crackles, or rhonchi. No du llness to percussion. Abdomen: Bowel sounds present. Soft, NT, ND. Extremities: No swelling or edema. Neuro: CN II-XII intact. Strength +5/5 in bilateral upper extremities, +3/5 in right lower extremity, 3-/5 in left lower extremity. Sensation intact in all 4 extremities. 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 If there are new enhancing plaques we will officially consult otherwise this likely represents a pseudo-MS flare brought on by her recent UTI and just needs more time to resolve. -Continue home siponimod PT/OT ordered, fall precautions, OOB w/ assist only #UTI Macrobid held, levaquin started, should only need to continue that for another day, given absence of patients symptoms #Hx of essential tremors Continue propranolol, holding parameters heart rate less than 60 #History of depression Continue home medication duloxetine #Chronic pain Continue patient's home baclofen, gabapentin and tizanidine #DVT prophylaxis Increased coagulopathic risk due to MS Heparin 5000 units twice daily ordered Disposition: Pending MRI, will likely need to be transferred to ARU for rehab VS,Fishbone, I+O VS, Fishbone, I+O Laboratory Tests 08/08/21 19:38 Vital Signs Date Time Temp Pulse Resp B/P (MAP) Pulse Ox O2 Delivery O2 Flow Rate FiO2 08/09/21 06:00 98.4 77 18 122/77 (92) 96 Room Air I&O- Last 24 Hours up to 6 AM 08/09/21 05:59 Intake Total 120 ml Balance 120 ml GME ATTESTATION GME ATTESTATION My faculty preceptor for this patient encounter was physically present during the encounter and was fully available. All aspects of the patient interview, examination, medical decision making process, and medical care plan development were reviewed and approved by the faculty preceptor. The faculty preceptor is aware and concurs with the plan as stated in the body of this note and will attest to such by his/her cosignature. ATTENDING NOTE I, Ioana Carreno, have independently examined this patient and performed my own physical exam, as well as reviewed the documentation and edited where necessary with the resident. For medical students we have performed the physical exam together and discussed medical decision making and I have verified the history. I have discussed in detail with the resident / student the findings and plan of treatment as documented by the resident / student and edited their note. I agree with their findings and treatment plan and have edited their documentation. I will continue to follow the patient during this hospital stay. FARIDA PALOMINO DO Aug 09, 2021 08:42 IOANA CARRENO MD Aug 09, 2021 10:58
[2021-08-09] MEDS ORDERED: ALPRAZolam 0.5 MG TAB PO ONE (08:55)
[2021-08-09] MEDS ORDERED: VITAMIN D 1,000 INTERNATIONAL UNITS TABLET PO SCH (09:00)
[2021-08-09] MEDS: HEPARIN SOD (PORCINE) 5000UNITS/ML 1ML VIAL/SYRINGE SC SCH ×2 (09:06→22:13)
[2021-08-09 11:02] LABS: BASO % 0.2 % (0.0-1.0); EOS % 0.9 % (0.0-3.0); HEMATOCRIT 42.2 % (36.0-47.0); HEMOGLOBIN 13.8 g/dl (12.0-15.5); LYMPH # 0.2 10^3/uL (1.5-5.0); LYMPH % 4.2 % (24.0-44.0); MEAN CORPUSCULAR HEMOGLOBIN 31.2 pg (27.0-33.0); MEAN CORPUSCULAR HGB CONC 32.7 g/dl (32.0-36.5); MEAN CORPUSCULAR VOLUME 95.5 fl (80.0-96.0); MONO # 0.3 10^3/uL (0.0-0.8); MONO % 7.3 % (2.0-8.0); NEUTROPHILS # 3.9 10^3/uL (1.5-8.5); NEUTROPHILS % 86.7 % (36.0-66.0); PLATELET COUNT, AUTOMATED 311 10^3/uL (150-450); RED BLOOD COUNT 4.42 10^6/uL (4.00-5.40); WHITE BLOOD COUNT 4.5 10^3/uL (4.0-10.0)
[2021-08-09 11:12] LABS: INR 0.93; PROTHROMBIN TIME 12.8 SECONDS (12.7-14.5)
[2021-08-09 11:31] LABS: ALBUMIN 3.5 GM/DL (3.2-5.2); ALT/SGPT 23 U/L (12-78); BILIRUBIN,TOTAL 0.7 MG/DL (0.2-1.0); BLOOD UREA NITROGEN 13 MG/DL (7-18); CALCIUM LEVEL 9.7 MG/DL (8.8-10.2); CARBON DIOXIDE LEVEL 30 MEQ/L (21-32); CHLORIDE LEVEL 102 MEQ/L (98-107); GLOMERULAR FILTRATION RATE > 60.0 (>45); GLUCOSE, FASTING 179 MG/DL (70-100); MAGNESIUM LEVEL 2.1 MG/DL (1.8-2.4); POTASSIUM SERUM 4.1 MEQ/L (3.5-5.1); SODIUM LEVEL 137 MEQ/L (136-145); TOTAL PROTEIN 6.3 GM/DL (6.4-8.2)
[2021-08-09] MEDS: DULoxetine 30MG CAPSULE (CYMBALTA) PO SCH (11:45)
[2021-08-09 14:00] VITALS: BP 124/74
[2021-08-09] MEDS: VITAMIN D 1,000 INTERNATIONAL UNITS TABLET PO SCH (14:06)
[2021-08-09] MEDS ORDERED: PROHANCE 279.3MG/ML 15ML VIAL As Ordered ONE (19:47)
[2021-08-09] MEDS ORDERED: ENTER DRUG NAME HERE (PATIENT'S OWN MED) PO SCH (21:00)
[2021-08-09 22:00] VITALS: BP 100/59
--- NOTE | 2021-08-09 22:05 | REPVR ---
PROCEDURE INFORMATION: Exam: MR Head Without and With Contrast Exam date and time: 08/09/2021 8:31 PM Age: 61 years old Clinical indication: Other: MS flare TECHNIQUE: Imaging protocol: MR of the head without and with intravenous contrast. Contrast material: PROHANCE; Contrast volume: 11 ml; Contrast route: INTRAVENOUS (IV); COMPARISON: MRI-Brain W/O FOLL BY WITH 04/24/2021 1:10 PM FINDINGS: Brain: Redemonstration of prominent scattered T2/FLAIR hyperintensities of the periventricular and deep subcortical white matter compatible with known history of multiple sclerosis. No intracranial hemorrhage or extra-axial fluid collection. No evidence of mass effect or midline shift. No restricted diffusion to suggest acute infarct. No abnormal intracranial enhancement Cerebral ventricles: No ventriculomegaly. Bones/joints: Unremarkable. Paranasal sinuses: Normal as visualized. No acute sinusitis. Mastoid air cells: No mastoid effusion. Orbital cavity: Unremarkable. Soft tissues: Unremarkable. IMPRESSION: No significant change in prominent scattered T2/FLAIR hyperintensities of the periventricular deep subcortical white matter, compatible with known history of multiple sclerosis. Electronically signed by: David Daigle On 08/09/2021 22:04:49 PM
--- NOTE | 2021-08-09 22:15 | REPVR ---
PROCEDURE INFORMATION: Exam: MR Cervical Spine Without and With Contrast Exam date and time: 08/09/2021 8:31 PM Age: 61 years old Clinical indication: Other: Ms flare TECHNIQUE: Imaging protocol: Multiplanar magnetic resonance images of the cervical spine without and with contrast. Contrast material: PROHANCE; Contrast volume: 11 ml; Contrast route: INTRAVENOUS (IV); COMPARISON: MRI-C SPINE W/O FOLL BY WITH 04/24/2021 1:45 PM FINDINGS: Redemonstration of extensive scattered T2/STIR hyperintense white matter lesions throughout the visualized spinal cord, without significant change from prior MRI. No abnormal enhancement in the cervical spine. No cord compression. Cervical vertebral body heights are intact. Straightening of the cervical lordosis. The dens is intact. No abnormal marrow signal. Soft tissues are unremarkable. Heterogeneously enlarged left lobe of the thyroid gland with multiple nodules, largest measuring 1.1 cm. C2-C3: Facet hypertrophy causes mild bilateral foraminal narrowing. No significant canal narrowing. C3-C4: Posterior disc protrusion and uncovertebral spurring cause mild canal narrowing with mild left and odap-dh-[id number] right foraminal narrowing. C4-C5: Posterior disc protrusion and uncovertebral spurring cause mild canal narrowing and mild bilateral foraminal narrowing. C5-C6: No significant canal or foraminal narrowing. C6-C7: No significant canal or foraminal narrowing. C7-T1: No significant canal or foraminal narrowing. IMPRESSION: 1. Extensive scattered T2/STIR hyperintense white matter lesions throughout the visualized spinal cord, without significant change from prior MRI, compatible with provided history of multiple sclerosis. 2. Spondylotic changes of the cervical spine, as above. Electronically signed by: David Daigle On 08/09/2021 22:14:40 PM
--- NOTE | 2021-08-09 22:20 | REPVR ---
PROCEDURE INFORMATION: Exam: MR Thoracic Spine Without and With Contrast Exam date and time: 08/09/2021 8:31 PM Age: 61 years old Clinical indication: Other: Ms flare TECHNIQUE: Imaging protocol: Multiplanar magnetic resonance images of the thoracic spine without and with contrast. Contrast material: PROHANCE; Contrast volume: 11 ml; Contrast route: INTRAVENOUS (IV); COMPARISON: MRI-T SPINE W/O FOLL WITH CON 04/24/2021 2:23 PM FINDINGS: Redemonstration of numerous scattered nonenhancing T2/STIR hyperintense white matter lesions throughout the visualized spinal cord, without significant change from prior MRI. Thoracic vertebral body heights are maintained. No abnormal marrow signal. No cord compression. Thoracic kyphosis is preserved. Thoracic disc space heights are unremarkable. Soft tissues are unremarkable. IMPRESSION: Unchanged size and appearance of scattered nonenhancing white matter lesions throughout the visualized spinal cord, compatible with provided history of MS. Electronically signed by: David Daigle On 08/09/2021 22:19:54 PM
[2021-08-10 06:00] VITALS: BP 125/70
[2021-08-10 07:47] LABS: EOS # 0.1 10^3/uL (0.0-0.5); EOS % 3.5 % (0.0-3.0); HEMATOCRIT 37.1 % (36.0-47.0); HEMOGLOBIN 12.4 g/dl (12.0-15.5); LYMPH # 0.4 10^3/uL (1.5-5.0); LYMPH % 9.4 % (24.0-44.0); MEAN CORPUSCULAR HEMOGLOBIN 31.5 pg (27.0-33.0); MEAN CORPUSCULAR HGB CONC 33.4 g/dl (32.0-36.5); MEAN CORPUSCULAR VOLUME 94.2 fl (80.0-96.0); MONO # 0.7 10^3/uL (0.0-0.8); MONO % 17.6 % (2.0-8.0); NEUTROPHILS # 2.8 10^3/uL (1.5-8.5); PLATELET COUNT, AUTOMATED 265 10^3/uL (150-450); RED BLOOD COUNT 3.94 10^6/uL (4.00-5.40)
[2021-08-10 08:12] LABS: ALT/SGPT 21 U/L (12-78); BILIRUBIN,TOTAL 0.4 MG/DL (0.2-1.0); BLOOD UREA NITROGEN 22 MG/DL (7-18); CARBON DIOXIDE LEVEL 29 MEQ/L (21-32); CHLORIDE LEVEL 107 MEQ/L (98-107); CREATININE FOR GFR 0.69 MG/DL (0.55-1.30); GLOMERULAR FILTRATION RATE > 60.0 (>45); GLUCOSE, FASTING 98 MG/DL (70-100); POTASSIUM SERUM 4.3 MEQ/L (3.5-5.1); SODIUM LEVEL 140 MEQ/L (136-145); TOTAL PROTEIN 5.5 GM/DL (6.4-8.2)
[2021-08-10] MEDS: DULoxetine 30MG CAPSULE (CYMBALTA) PO SCH (08:54)
[2021-08-10] MEDS: GABAPENTIN 400MG CAP PO SCH ×2 (08:54→16:05)
[2021-08-10] MEDS: VITAMIN D 1,000 INTERNATIONAL UNITS TABLET PO SCH (08:54)
[2021-08-10 08:55] VITALS: BP 120/75
[2021-08-10] MEDS: PROPRANOLOL 20 MG TAB PO SCH (08:55)
[2021-08-10] MEDS: BACLOFEN 10 MG TAB PO SCH ×2 (08:59→16:05)
[2021-08-10] MEDS: HEPARIN SOD (PORCINE) 5000UNITS/ML 1ML VIAL/SYRINGE SC SCH (08:59)
[2021-08-10 09:00] VITALS: BP 120/75
--- NOTE | 2021-08-10 09:10 | IPNPDOC ---
Text Note Date of Service The patient was seen on 08/10/21. NOTE Subjective: No acute events overnight. Patient denies any fever, chills, chest pain, difficulty breathing, abdominal pain, nausea, vomiting. She states she feels like her weakness is about the same. She worked with physical therapy yesterday. Objective: General: Tired appearing female in no acute distress resting comfortably in bed. HEENT: NC, AT. EOMI, no scleral icterus. No pharyngeal erythema, mucous membranes moist. Neck: No lymphadenopathy or JVD CV: RRR, Normal S1 and S2. No murmurs, gallops, or rubs. Resp: CTAB with full breath sounds. No wheezes, crackles, or rhonchi. No dullness to percussion. Abdomen: Bowel sounds present. Soft, NT, ND. Extremities: No swelling or edema. Neuro: CN II-XII intact. Strength +5/5 in bilateral upper extremities, +3/5 in right lower extremity, +3/5 in left lower extremity. Sensation intact in all 4 extremities. Imagin08/08/2021 chest x-ray: "IMPRESSION: No evidence of acute cardiopulmonary pathology." 08/09/2021 brain MRI without followed by with contrast: "IMPRESSION: No significant change in prominent scattered T2/FLAIR hyperintensities of the periventricular deep subcortical white matter, compatible with known history of multiple sclerosis." 08/09/2021 thoracic spine MRI without followed by with contrast: "IMPRESSION: Unchanged size and appearance of scattered nonenhancing white matter lesions t hroughout the visualized spinal cord, compatible with provided history of MS. " 08/09/2021 cervical spine MRI without followed by with contrast: "IMPRESSION: 1. Extensive scattered T2/STIR hyperintense white matter lesions throughout the visualized spinal cord, without significant change from prior MRI, compatible with provided history of multiple sclerosis. 2. Spondylotic changes of the cervical spine, as above. " Assessment/Plan: #Pseudo Multiple sclerosis Flair -RI brain, C-spine, T-spine all negative for any new changes that would necessitate high-dose steroids. Likely represents a pseudo-MS flare brought on by her recent UTI and will likely require further physical therapy to resolve. -Continue home siponimod PT/OT ordered, fall precautions, OOB w/ assist only #UTI Continue Levaquin (stop date 08/10/2021) #Hx of essential tremors Continue propranolol, holding parameters heart rate less than 60 #History of depression Continue home medication duloxetine #Chronic pain Continue patient's home baclofen, gabapentin and tizanidine #DVT prophylaxis Increased coagulopathic risk due to MS Heparin 5000 units twice daily ordered Disposition: PT/OT, ARU admission screen ordered on 08/09 VS,Fishbone, I+O VS, Fishbone, I+O Laboratory Tests 08/09/21 10:20 08/10/21 07:13 Vital Signs Date Time Temp Pulse Resp B/P (MAP) Pulse Ox O2 Delivery O2 Flow Rate FiO2 08/10/21 06:00 97.6 70 20 125/70 (88) 100 Room Air l I&O- Last 24 Hours up to 6 AM 08/10/21 06:00 Intake Total 1370 ml Output Total 700 ml Balance 670 ml GME ATTESTATION GME ATTESTATION My faculty preceptor for this patient encounter was physically present during the encounter and was fully available. All aspects of the patient interview, examination, medical decision making process, and medical care plan development were reviewed and approved by the faculty preceptor. The faculty preceptor is aware and concurs with the plan as stated in the body of this note and will att est to such by his/her cosignature. ATTENDING NOTE I, Ioana Carreno, have independently examined this patient and performed my own physical exam, as well as reviewed the documentation and edited where necessary with the resident. For medical students we have performed the physical exam together and discussed medical decision making and I have verified the history. I have discussed in detail with the resident / student the findings and plan of treatment as documented by the resident / student and edited their note. I agree with their findings and treatment plan and have edited their documentation. I will continue to follow the patient during this hospital stay. FARIDA PALOMINO DO Aug 10, 2021 09:10 IOANA CARRENO MD Aug 10, 2021 11:32
--- NOTE | 2021-08-10 13:35 | DS.PDOC ---
Discharge Summary General Date of Admission Aug 08, 2021 at 21:59 Date of Discharge 08/10/21 Primary Care Physician: LISANDRO DE LA TORRE DO Attending Physician: IOANA CARRENO MD Discharge Summary PROCEDURES PERFORMED DURING STAY: None. ADMITTING DIAGNOSES/DISCHARGE DIAGNOSES: Weakness MS UTI Essential tremors depression Hx of chronic pain COMPLICATIONS/CHIEF COMPLAINT: Weakness. HISTORY OF PRESENT ILLNESS: Patient is a 61-year-old female with a history of MS in the recent diagnosis of UTI who presents with bilateral leg weakness for the past day. Patient reports that she has bilateral leg weakness at baseline however feels that it is worse today. Patient denies any visual disturbances and denies any other weakness.patient reports some numbness and tingling going down the front of her right leg to her knee. She denies any other numbness or paresthesias. The patient reports that she called her neurologist in [place] who suggested that she come in to be seen at this time. Patient's last possible flare was in October 2020 at which time she presented to [facility]. Patient had a brain MRI done ordered by her neurologist in [place] in April 2021. Patient reports that she last saw the neurologist in [place] in June 2021 an d was told that there were no active lesions. Patient was started on siponimod in October or November 2020. Patient took Tecfidera before that. For patient's UTI that was diagnosed 4 days ago patient has been taking Macrobid for the last 4 days. Patient denies any active symptoms at this time. Patient also reports that she took an oxkl-vox-dzoesls medication called Azo which turns her urine orange. She reports that she has been taking this for the last 4 days as well. HOSPITAL COURSE: Patient was evaluated for MS flair which was found to be negative following MRI brain, C spine, T-spine. Weakness likely brought on from recent UTI causing pseudo MS flair. See inpatient problems below. #Pseudo Multiple sclerosis Flair -MRI brain, C-spine, T-spine all negative for any new changes that would necessitate high-dose steroids. Likely represents a pseudo-MS flare brought on by her recent UTI and will likely require further physical therapy to resolve. -Continue home siponimod PT/OT ordered, fall precautions, OOB w/ assist only #UTI Continue Levaquin (stop date 08/10/2021) #Hx of essential tremors Continue propranolol, holding parameters heart rate less than 60 #History of depression Continue home medication duloxetine #Chronic pain Continue patient's home baclofen, gabapentin and tizanidine DISCHARGE MEDICATIONS: Please see below. ALLERGIES: Please see below. PHYSICAL EXAMINATION ON DISCHARGE: VITAL SIGNS: Please see below. General: Tired appearing female in no acute distress resting comfortably in bed. HEENT: NC, AT. EOMI, no scleral icterus. No pharyngeal erythema, mucous membranes moist. Neck: No lymphadenopathy or JVD CV: RRR, Normal S1 and S2. No murmurs, gallops, or rubs. Resp: CTAB with full breath sounds. No wheezes, crackles, or rhonchi. No dullne ss to percussion. Abdomen: Bowel sounds present. Soft, NT, ND. Extremities: No swelling or edema. Neuro: CN II-XII intact. Strength +5/5 in bilateral upper extremities, +3/5 in right lower extremity, +3/5 in left lower extremity. Sensation intact in all 4 extremities. LABORATORY DATA: Please see below. IMAGIN08/08/2021 chest x-ray: "IMPRESSION: No evidence of acute cardiopulmonary pathology." 08/09/2021 brain MRI without followed by with contrast: "IMPRESSION: No significant change in prominent scattered T2/FLAIR hyperintensities of the periventricular deep subcortical white matter, compatible with known history of multiple sclerosis." 08/09/2021 thoracic spine MRI without followed by with contrast: "IMPRESSION: Unchanged size and appearance of scattered nonenhancing white matter lesions throughout the visualized spinal cord, compatible with provided history of MS. " 08/09/2021 cervical spine MRI without followed by with contrast: "IMPRESSION: 1. Extensive scattered T2/STIR hyperintense white matter lesions throughout the visualized spinal cord, without significant change from prior MRI, compatible with provided history of multiple sclerosis. 2. Spondylotic changes of the cervical spine, as above." ACTIVITY: Per PT DIET: As tolerated DISCHARGE PLAN: ARU DISCHARGE INSTRUCTIONS: 1. Please follow up with PCP within 7 days. Please call to confirm / schedule a ppointment. Please comply with treatment plan and medications and return to the ER if you experience any problems. DISCHARGE CONDITION: Stable. TIME SPENT ON DISCHARGE: 35 minutes. Vital Signs/I&Os Vital Signs Date Time Temp Pulse Resp B/P (MAP) Pulse Ox O2 Delivery O2 Flow Rate FiO2 08/10/21 09:00 98.0 73 16 120/75 (90) 99 Room Air I&O- Last 24 Hours up to 6 AM 08/10/21 06:00 Intake Total 1370 ml Output Total 700 ml Balance 670 ml Laboratory Data Labs 24H Laboratory Tests 2 08/10/21 07:13: Immature Granulocyte % (Auto) 0.5, Neutrophils (%) (Auto) 68.0H, Lymphocytes (%) (Auto) 9.4L, Monocytes (%) (Auto) 17.6H, Eosinophils (%) (Auto) 3.5H, Basophils (%) (Auto) 1.0, Neutrophils # (Auto) 2.8, Lymphocytes # (Auto) 0.4L, Monocytes # (Auto) 0.7, Eosinophils # (Auto) 0.1, Basophils # (Auto) 0.0, Nucleated Red Blood Cells % (auto) 0.0, Anion Gap 4L, Glomerular Filtration Rate > 60.0, Calcium Level 9.0, Total Bilirubin 0.4, Aspartate Amino Transf (AST/SGOT) 11, Alanine Aminotransferase (ALT/SGPT) 21, Alkaline Phosphatase 76, Total Protein 5 .5L, Albumin 3.0L, Albumin/Globulin Ratio 1.2 CBC/BMP Laboratory Tests 08/10/21 07:13 Microbiology Microbiology 08/08/21 Urine Culture, Received Pending Discharge Medications Scheduled Baclofen (Baclofen) 10 Mg Tablet, 10 MG PO QID, (Reported) Cholecalciferol (Vitamin D3) (Vitamin D3) 25 Mcg Tablet, 25 MCG PO DAILY, (Reported) Duloxetine Hcl (Duloxetine HCl) 60 Mg Capsule.dr, 60 MG PO DAILY, (Reported) Gabapentin (Gabapentin) 400 Mg Capsule, 400 MG PO QID, (Reported) [place]-3 Fatty Acids/Fish Oil (Fish Oil 1,000 mg Capsule) 1,000 Mg Cap, 1,000 MG PO QHS, (Reported) Propranolol HCl (Propranolol HCl) 20 Mg Tablet, 20 MG PO BID, (Reported) Siponimod (Mayzent) 2 Mg Tablet, 2 MG PO QHS, (Reported) Tizanidine HCl (Tizanidine HCl) 4 Mg Tablet, 4 MG PO QHS, (Reported) Allergies Coded Allergies: Sulfa (Sulfonamide Antibiotics) (Verified Adverse Reaction, Mild, nausea, 12/4/19) GME ATTESTATION GME ATTESTATION My faculty preceptor for this patient encounter was physically present during the encounter and was fully available. All aspects of the patient interview, examination, medical decision making process, and medical care plan development were reviewed and approved by the faculty preceptor. The faculty preceptor is aware and concurs with the plan as stated in the body of this note and will attest to such by his/her cosignature. ATTENDING NOTE I, Ioana Carreno, have independently examined this patient and performed my own physical exam, as well as reviewed the documentation and edited where necessary with the resident. For medical students we have performed the physical exam together and discussed medical decision making and I have verified the history. I have discussed in detail with the resident / student the findings and plan of treatment as documented by the resident / student and edited their note. I agree with their findings and treatment plan and have edited their documentation. I will continue to follow the patient during this hospital stay. Time spent on discharge 35 minutes FARIDA PALOMINO DO Aug 10, 2021 13:35 IOANA CARRENO MD Aug 10, 2021 15:35
[2021-08-10 14:00] VITALS: BP 125/76
== END 2021-08-10 16:00 | DRG 948 ==
LOC: EDBD 18:12 → M ED 18:12 → M ED INP 21:59 → ENRESERV 22:42 → M MS5PR 08-09
PROVIDERS: ADMIT Internal Medicine; ATTEND Internal Medicine
DX: R53.1 Weakness (principal); N39.0 Urinary tract infection, site not specified; G35 Multiple sclerosis; N31.9 Neuromuscular dysfunction of bladder, unspecified; F32.A Depression, unspecified; G25.0 Essential tremor; Z90.79 Acquired absence of other genital organ(s); Z79.899 Other long term (current) drug therapy; Z88.2 Allergy status to sulfonamides; G89.29 Other chronic pain; Z20.822 Contact with and (suspected) exposure to COVID-19; Z66 Do not resuscitate

== ENCOUNTER 2021-08-10 13:45 | Inpatient (IN) | payer MEDICARE ==
[~2021-08-10] VITALS: Ht 160 cm; Wt 70.2 kg
[~2021-08-10 13:45] MED LIST changes: +GABA-283 PO; +NITR100C2 PO; +PROP20TA72 PO; +SIPO2TAB PO; +TIZA10TA PO; -TIZA4TAB4 PO
[2021-08-10 16:30] VITALS: BP 140/67
[2021-08-10] MEDS: LACTOBACILLUS ACIDOPHILUS CAP (BACID) PO SCH ×2 (18:00→21:00)
[2021-08-10 20:00] VITALS: BP 118/56
[2021-08-10] MEDS: REMEDY PHYTOPLEX Z-GUARD PASTE 113GM TUBE (FROM STOREROOM PRODUCT) TOP SCH (21:00)
[2021-08-10] MEDS: SENNA 8.6 MG TAB (SENOKOT) PO SCH (21:00)
[2021-08-10] MEDS: DOCUSATE SODIUM 100MG CAPSULE PO SCH (21:00)
[2021-08-10] MEDS: GABAPENTIN 400MG CAP PO SCH (21:22)
[2021-08-10] MEDS: BACLOFEN 10 MG TAB PO SCH (21:22)
[2021-08-10] MEDS: PROPRANOLOL 20 MG TAB PO SCH (21:22)
[2021-08-10] MEDS: HEPARIN SOD (PORCINE) 5000UNITS/ML 1ML VIAL/SYRINGE SC SCH (21:23)
[2021-08-10] MEDS ORDERED: LevoFLOXacin 500 MG TABLET PO SCH (23:00)
[2021-08-11 06:16] VITALS: BP 127/58
[2021-08-11 07:04] LABS: BASO # 0.1 10^3/uL (0.0-0.2); BASO % 1.9 % (0.0-1.0); EOS # 0.2 10^3/uL (0.0-0.5); EOS % 6.1 % (0.0-3.0); HEMATOCRIT 37.7 % (36.0-47.0); HEMOGLOBIN 12.5 g/dl (12.0-15.5); LYMPH # 0.4 10^3/uL (1.5-5.0); LYMPH % 11.3 % (24.0-44.0); MEAN CORPUSCULAR HEMOGLOBIN 31.1 pg (27.0-33.0); MEAN CORPUSCULAR HGB CONC 33.2 g/dl (32.0-36.5); MEAN CORPUSCULAR VOLUME 93.8 fl (80.0-96.0); MONO # 0.5 10^3/uL (0.0-0.8); MONO % 17.2 % (2.0-8.0); NEUTROPHILS # 1.9 10^3/uL (1.5-8.5); NEUTROPHILS % 62.9 % (36.0-66.0); PLATELET COUNT, AUTOMATED 247 10^3/uL (150-450); RED BLOOD COUNT 4.02 10^6/uL (4.00-5.40); WHITE BLOOD COUNT 3.1 10^3/uL (4.0-10.0)
[2021-08-11 07:29] LABS: ALBUMIN 3.1 GM/DL (3.2-5.2); ALT/SGPT 21 U/L (12-78); BILIRUBIN,TOTAL 0.5 MG/DL (0.2-1.0); BLOOD UREA NITROGEN 18 MG/DL (7-18); CALCIUM LEVEL 9.2 MG/DL (8.8-10.2); CARBON DIOXIDE LEVEL 27 MEQ/L (21-32); CHLORIDE LEVEL 109 MEQ/L (98-107); CREATININE FOR GFR 0.65 MG/DL (0.55-1.30); GLOMERULAR FILTRATION RATE > 60.0 (>45); GLUCOSE, FASTING 107 MG/DL (70-100); POTASSIUM SERUM 4.2 MEQ/L (3.5-5.1); SODIUM LEVEL 141 MEQ/L (136-145); TOTAL PROTEIN 5.7 GM/DL (6.4-8.2)
[2021-08-11] MEDS: LACTOBACILLUS ACIDOPHILUS CAP (BACID) PO SCH ×4 (08:00→21:20)
[2021-08-11] MEDS: REMEDY PHYTOPLEX Z-GUARD PASTE 113GM TUBE (FROM STOREROOM PRODUCT) TOP SCH ×3 (09:00→21:00)
[2021-08-11] MEDS: DOCUSATE SODIUM 100MG CAPSULE PO SCH ×2 (09:00→21:00)
[2021-08-11] MEDS: GABAPENTIN 400MG CAP PO SCH (10:07)
[2021-08-11] MEDS: BACLOFEN 10 MG TAB PO SCH ×4 (10:08→21:20)
[2021-08-11] MEDS: DULoxetine 30MG CAPSULE (CYMBALTA) PO SCH (10:08)
[2021-08-11] MEDS: VITAMIN D 1,000 INTERNATIONAL UNITS TABLET PO SCH (10:08)
[2021-08-11] MEDS: PROPRANOLOL 20 MG TAB PO SCH ×2 (10:09→21:21)
[2021-08-11] MEDS: HEPARIN SOD (PORCINE) 5000UNITS/ML 1ML VIAL/SYRINGE SC SCH ×2 (10:17→21:21)
[2021-08-11] MEDS ORDERED: FUROSEMIDE 20 MG TAB PO ONE (11:15)
[2021-08-11 14:00] VITALS: BP 137/63
[2021-08-11] MEDS ORDERED: HOME MED LIST COMPLETE! XX SCH (14:20)
[2021-08-11] MEDS: GABAPENTIN 300 MG CAP PO SCH ×2 (18:18→21:20)
[2021-08-11 20:00] VITALS: BP 115/58
[2021-08-11] MEDS: SENNA 8.6 MG TAB (SENOKOT) PO SCH (21:00)
[2021-08-11] MEDS: tiZANidine 4 MG TAB PO PRN (21:20)
[2021-08-12 06:00] VITALS: BP 105/56
[2021-08-12] MEDS: PROPRANOLOL 20 MG TAB PO SCH ×2 (07:54→21:15)
[2021-08-12] MEDS: REMEDY PHYTOPLEX Z-GUARD PASTE 113GM TUBE (FROM STOREROOM PRODUCT) TOP SCH ×3 (07:58→21:00)
[2021-08-12] MEDS: BACLOFEN 10 MG TAB PO SCH ×4 (07:58→21:14)
[2021-08-12] MEDS: VITAMIN D 1,000 INTERNATIONAL UNITS TABLET PO SCH (07:58)
[2021-08-12] MEDS: HEPARIN SOD (PORCINE) 5000UNITS/ML 1ML VIAL/SYRINGE SC SCH ×2 (07:58→21:14)
[2021-08-12] MEDS: DULoxetine 30MG CAPSULE (CYMBALTA) PO SCH (07:58)
[2021-08-12] MEDS: GABAPENTIN 300 MG CAP PO SCH ×3 (07:58→21:14)
[2021-08-12] MEDS: LACTOBACILLUS ACIDOPHILUS CAP (BACID) PO SCH ×4 (07:58→21:14)
[2021-08-12] MEDS: DOCUSATE SODIUM 100MG CAPSULE PO SCH ×2 (08:00→21:00)
[2021-08-12 14:00] VITALS: BP 149/58
[2021-08-12 20:00] VITALS: BP 115/57
[2021-08-12] MEDS: SENNA 8.6 MG TAB (SENOKOT) PO SCH (21:00)
[2021-08-12] MEDS: [UNRECOGNIZED DRUG - OTHER] PO SCH (21:00)
[2021-08-12] MEDS: tiZANidine 4 MG TAB PO PRN (21:17)
[2021-08-13 06:00] VITALS: BP 103/59
[2021-08-13] MEDS: BACLOFEN 10 MG TAB PO SCH ×4 (08:33→20:22)
[2021-08-13] MEDS: GABAPENTIN 300 MG CAP PO SCH ×3 (08:33→20:23)
[2021-08-13] MEDS: DULoxetine 30MG CAPSULE (CYMBALTA) PO SCH (08:33)
[2021-08-13] MEDS: VITAMIN D 1,000 INTERNATIONAL UNITS TABLET PO SCH (08:33)
[2021-08-13] MEDS: PROPRANOLOL 20 MG TAB PO SCH ×2 (08:33→20:24)
[2021-08-13] MEDS: LACTOBACILLUS ACIDOPHILUS CAP (BACID) PO SCH ×4 (08:33→20:23)
[2021-08-13] MEDS: REMEDY PHYTOPLEX Z-GUARD PASTE 113GM TUBE (FROM STOREROOM PRODUCT) TOP SCH ×3 (08:34→20:24)
[2021-08-13] MEDS: HEPARIN SOD (PORCINE) 5000UNITS/ML 1ML VIAL/SYRINGE SC SCH ×2 (08:34→20:23)
[2021-08-13] MEDS: DOCUSATE SODIUM 100MG CAPSULE PO SCH ×2 (08:36→20:24)
[2021-08-13 14:00] VITALS: BP 130/57
[2021-08-13 20:00] VITALS: BP 120/61
[2021-08-13] MEDS: [UNRECOGNIZED DRUG - OTHER] PO SCH (20:23)
[2021-08-13] MEDS: tiZANidine 4 MG TAB PO PRN (20:23)
[2021-08-13] MEDS: SENNA 8.6 MG TAB (SENOKOT) PO SCH (20:24)
[2021-08-14 06:00] VITALS: BP 116/51
[2021-08-14] MEDS: REMEDY PHYTOPLEX Z-GUARD PASTE 113GM TUBE (FROM STOREROOM PRODUCT) TOP SCH ×3 (09:00→20:16)
[2021-08-14] MEDS: DOCUSATE SODIUM 100MG CAPSULE PO SCH ×2 (09:57→20:16)
[2021-08-14] MEDS: DULoxetine 30MG CAPSULE (CYMBALTA) PO SCH (09:57)
[2021-08-14] MEDS: BACLOFEN 10 MG TAB PO SCH ×4 (09:57→20:15)
[2021-08-14] MEDS: PROPRANOLOL 20 MG TAB PO SCH ×2 (09:57→20:15)
[2021-08-14] MEDS: GABAPENTIN 300 MG CAP PO SCH ×3 (09:57→20:15)
[2021-08-14] MEDS: HEPARIN SOD (PORCINE) 5000UNITS/ML 1ML VIAL/SYRINGE SC SCH ×2 (09:58→20:15)
[2021-08-14] MEDS: VITAMIN D 1,000 INTERNATIONAL UNITS TABLET PO SCH (09:58)
[2021-08-14] MEDS: LACTOBACILLUS ACIDOPHILUS CAP (BACID) PO SCH ×4 (10:03→20:15)
[2021-08-14 11:45] LABS: BASO % 0.7 % (0.0-1.0); EOS # 0.1 10^3/uL (0.0-0.5); EOS % 3.2 % (0.0-3.0); HEMATOCRIT 40.4 % (36.0-47.0); HEMOGLOBIN 13.5 g/dl (12.0-15.5); LYMPH # 0.2 10^3/uL (1.5-5.0); LYMPH % 4.4 % (24.0-44.0); MEAN CORPUSCULAR HEMOGLOBIN 31.5 pg (27.0-33.0); MEAN CORPUSCULAR HGB CONC 33.4 g/dl (32.0-36.5); MEAN CORPUSCULAR VOLUME 94.2 fl (80.0-96.0); MONO # 0.7 10^3/uL (0.0-0.8); MONO % 15.1 % (2.0-8.0); NEUTROPHILS # 3.3 10^3/uL (1.5-8.5); NEUTROPHILS % 76.4 % (36.0-66.0); PLATELET COUNT, AUTOMATED 280 10^3/uL (150-450); RED BLOOD COUNT 4.29 10^6/uL (4.00-5.40); WHITE BLOOD COUNT 4.4 10^3/uL (4.0-10.0)
[2021-08-14 12:14] LABS: BLOOD UREA NITROGEN 18 MG/DL (7-18); CALCIUM LEVEL 9.6 MG/DL (8.8-10.2); CARBON DIOXIDE LEVEL 27 MEQ/L (21-32); CHLORIDE LEVEL 106 MEQ/L (98-107); CREATININE FOR GFR 0.64 MG/DL (0.55-1.30); GLOMERULAR FILTRATION RATE > 60.0 (>45); GLUCOSE, FASTING 84 MG/DL (70-100); POTASSIUM SERUM 4.6 MEQ/L (3.5-5.1); SODIUM LEVEL 140 MEQ/L (136-145)
[2021-08-14 14:00] VITALS: BP 127/51
[2021-08-14] MEDS ORDERED: tiZANidine 4 MG TAB PO PRN (14:00)
[2021-08-14 20:00] VITALS: BP 126/61
[2021-08-14] MEDS: [UNRECOGNIZED DRUG - OTHER] PO SCH (20:14)
[2021-08-14] MEDS: SENNA 8.6 MG TAB (SENOKOT) PO SCH (20:16)
[2021-08-14] MEDS: ACETAMINOPHEN TAB 650MG DOSE (2X325MG) PO PRN (23:37)
[2021-08-15 06:00] VITALS: BP 124/58
[2021-08-15] MEDS: REMEDY PHYTOPLEX Z-GUARD PASTE 113GM TUBE (FROM STOREROOM PRODUCT) TOP SCH ×3 (09:00→20:52)
[2021-08-15] MEDS: DOCUSATE SODIUM 100MG CAPSULE PO SCH ×2 (09:00→20:52)
[2021-08-15] MEDS: DULoxetine 30MG CAPSULE (CYMBALTA) PO SCH (09:36)
[2021-08-15] MEDS: PROPRANOLOL 20 MG TAB PO SCH ×2 (09:36→20:51)
[2021-08-15] MEDS: LACTOBACILLUS ACIDOPHILUS CAP (BACID) PO SCH ×4 (09:36→20:51)
[2021-08-15] MEDS: BACLOFEN 10 MG TAB PO SCH ×4 (09:37→20:51)
[2021-08-15] MEDS: VITAMIN D 1,000 INTERNATIONAL UNITS TABLET PO SCH (09:37)
[2021-08-15] MEDS: HEPARIN SOD (PORCINE) 5000UNITS/ML 1ML VIAL/SYRINGE SC SCH ×2 (09:37→20:50)
[2021-08-15] MEDS: GABAPENTIN 300 MG CAP PO SCH ×3 (09:37→20:51)
[2021-08-15 14:00] VITALS: BP 135/61
[2021-08-15] MEDS: [UNRECOGNIZED DRUG - OTHER] PO SCH (20:50)
[2021-08-15] MEDS: SENNA 8.6 MG TAB (SENOKOT) PO SCH (20:52)
[2021-08-15 21:00] VITALS: BP 103/51
[2021-08-16 06:00] VITALS: BP 132/58
[2021-08-16] MEDS: DOCUSATE SODIUM 100MG CAPSULE PO SCH ×2 (07:52→20:38)
[2021-08-16 08:13] LABS: BASO % 0.5 % (0.0-1.0); EOS # 0.2 10^3/uL (0.0-0.5); EOS % 3.9 % (0.0-3.0); HEMATOCRIT 41.1 % (36.0-47.0); HEMOGLOBIN 13.2 g/dl (12.0-15.5); LYMPH # 0.2 10^3/uL (1.5-5.0); LYMPH % 4.4 % (24.0-44.0); MEAN CORPUSCULAR HEMOGLOBIN 30.8 pg (27.0-33.0); MEAN CORPUSCULAR HGB CONC 32.1 g/dl (32.0-36.5); MEAN CORPUSCULAR VOLUME 95.8 fl (80.0-96.0); MONO # 0.4 10^3/uL (0.0-0.8); MONO % 11.1 % (2.0-8.0); NEUTROPHILS # 3.1 10^3/uL (1.5-8.5); NEUTROPHILS % 79.6 % (36.0-66.0); PLATELET COUNT, AUTOMATED 263 10^3/uL (150-450); RED BLOOD COUNT 4.29 10^6/uL (4.00-5.40); WHITE BLOOD COUNT 3.9 10^3/uL (4.0-10.0)
[2021-08-16 08:40] LABS: BLOOD UREA NITROGEN 14 MG/DL (7-18); CALCIUM LEVEL 9.4 MG/DL (8.8-10.2); CARBON DIOXIDE LEVEL 29 MEQ/L (21-32); CHLORIDE LEVEL 107 MEQ/L (98-107); CREATININE FOR GFR 0.66 MG/DL (0.55-1.30); GLOMERULAR FILTRATION RATE > 60.0 (>45); GLUCOSE, FASTING 172 MG/DL (70-100); POTASSIUM SERUM 4.2 MEQ/L (3.5-5.1); SODIUM LEVEL 142 MEQ/L (136-145)
[2021-08-16] MEDS: REMEDY PHYTOPLEX Z-GUARD PASTE 113GM TUBE (FROM STOREROOM PRODUCT) TOP SCH ×3 (09:00→20:38)
[2021-08-16] MEDS: PROPRANOLOL 20 MG TAB PO SCH ×2 (09:12→20:37)
[2021-08-16] MEDS: HEPARIN SOD (PORCINE) 5000UNITS/ML 1ML VIAL/SYRINGE SC SCH ×2 (09:12→20:38)
[2021-08-16] MEDS: VITAMIN D 1,000 INTERNATIONAL UNITS TABLET PO SCH (09:12)
[2021-08-16] MEDS: LACTOBACILLUS ACIDOPHILUS CAP (BACID) PO SCH ×4 (09:12→20:36)
[2021-08-16] MEDS: GABAPENTIN 300 MG CAP PO SCH ×3 (09:12→20:37)
[2021-08-16] MEDS: DULoxetine 30MG CAPSULE (CYMBALTA) PO SCH (09:12)
[2021-08-16] MEDS: BACLOFEN 10 MG TAB PO SCH ×4 (09:13→20:36)
[2021-08-16] MEDS ORDERED: PILL CUTTER 1 EACH XX PRN (13:50)
[2021-08-16 14:00] VITALS: BP 114/67
[2021-08-16] MEDS: tiZANidine 4 MG TAB PO SCH (15:06)
[2021-08-16 20:00] VITALS: BP 103/52
[2021-08-16] MEDS: [UNRECOGNIZED DRUG - OTHER] PO SCH (20:36)
[2021-08-16] MEDS: AMITRIPTYLINE 10MG TABLET PO SCH (20:37)
[2021-08-16] MEDS: SENNA 8.6 MG TAB (SENOKOT) PO SCH (20:38)
[2021-08-17 06:00] VITALS: BP 137/64
[2021-08-17] MEDS: HEPARIN SOD (PORCINE) 5000UNITS/ML 1ML VIAL/SYRINGE SC SCH ×2 (08:56→21:15)
[2021-08-17] MEDS: LACTOBACILLUS ACIDOPHILUS CAP (BACID) PO SCH ×4 (08:56→21:15)
[2021-08-17] MEDS: BACLOFEN 10 MG TAB PO SCH ×4 (08:57→21:15)
[2021-08-17] MEDS: DULoxetine 30MG CAPSULE (CYMBALTA) PO SCH (08:57)
[2021-08-17] MEDS: VITAMIN D 1,000 INTERNATIONAL UNITS TABLET PO SCH (08:57)
[2021-08-17] MEDS: GABAPENTIN 300 MG CAP PO SCH ×3 (08:57→21:15)
[2021-08-17] MEDS: REMEDY PHYTOPLEX Z-GUARD PASTE 113GM TUBE (FROM STOREROOM PRODUCT) TOP SCH ×3 (08:58→21:00)
[2021-08-17] MEDS: ACETAMINOPHEN TAB 650MG DOSE (2X325MG) PO PRN ×2 (08:58→17:27)
[2021-08-17] MEDS: DOCUSATE SODIUM 100MG CAPSULE PO SCH ×2 (08:58→21:00)
[2021-08-17] MEDS: PROPRANOLOL 20 MG TAB PO SCH ×2 (08:59→21:16)
[2021-08-17 14:00] VITALS: BP 117/56
[2021-08-17] MEDS: tiZANidine 4 MG TAB PO SCH (14:33)
[2021-08-17 20:00] VITALS: BP 114/54
[2021-08-17] MEDS: SENNA 8.6 MG TAB (SENOKOT) PO SCH (21:00)
[2021-08-17] MEDS: AMITRIPTYLINE 10MG TABLET PO SCH (21:00)
[2021-08-17] MEDS: [UNRECOGNIZED DRUG - OTHER] PO SCH (21:16)
[2021-08-18] MEDS: ACETAMINOPHEN TAB 650MG DOSE (2X325MG) PO PRN (05:11)
[2021-08-18 06:00] VITALS: BP 117/57
[2021-08-18] MEDS: PROPRANOLOL 20 MG TAB PO SCH ×2 (08:46→20:57)
[2021-08-18] MEDS: GABAPENTIN 300 MG CAP PO SCH ×3 (08:47→20:51)
[2021-08-18] MEDS: DULoxetine 30MG CAPSULE (CYMBALTA) PO SCH (08:48)
[2021-08-18] MEDS: BACLOFEN 10 MG TAB PO SCH ×4 (08:48→20:51)
[2021-08-18] MEDS: LACTOBACILLUS ACIDOPHILUS CAP (BACID) PO SCH ×4 (08:48→20:51)
[2021-08-18] MEDS: VITAMIN D 1,000 INTERNATIONAL UNITS TABLET PO SCH (08:50)
[2021-08-18] MEDS: HEPARIN SOD (PORCINE) 5000UNITS/ML 1ML VIAL/SYRINGE SC SCH ×2 (08:52→20:51)
[2021-08-18] MEDS: REMEDY PHYTOPLEX Z-GUARD PASTE 113GM TUBE (FROM STOREROOM PRODUCT) TOP SCH ×3 (08:53→20:53)
[2021-08-18] MEDS: DOCUSATE SODIUM 100MG CAPSULE PO SCH ×2 (09:00→20:52)
[2021-08-18 14:00] VITALS: BP_SYST 115; BP_SYST 119; BP_DIAS 63
[2021-08-18] MEDS: tiZANidine 4 MG TAB PO SCH (15:56)
[2021-08-18 20:00] VITALS: BP 95/52
[2021-08-18] MEDS: [UNRECOGNIZED DRUG - OTHER] PO SCH (20:51)
[2021-08-18] MEDS: AMITRIPTYLINE 10MG TABLET PO SCH (20:51)
[2021-08-18] MEDS: SENNA 8.6 MG TAB (SENOKOT) PO SCH (20:52)
[2021-08-19 06:00] VITALS: BP 126/71
[2021-08-19] MEDS: DOCUSATE SODIUM 100MG CAPSULE PO SCH ×2 (09:00→21:00)
[2021-08-19] MEDS: REMEDY PHYTOPLEX Z-GUARD PASTE 113GM TUBE (FROM STOREROOM PRODUCT) TOP SCH ×3 (09:00→21:00)
[2021-08-19] MEDS: HEPARIN SOD (PORCINE) 5000UNITS/ML 1ML VIAL/SYRINGE SC SCH ×2 (09:45→21:18)
[2021-08-19] MEDS: LACTOBACILLUS ACIDOPHILUS CAP (BACID) PO SCH ×4 (09:46→21:19)
[2021-08-19] MEDS: VITAMIN D 1,000 INTERNATIONAL UNITS TABLET PO SCH (09:46)
[2021-08-19] MEDS: BACLOFEN 10 MG TAB PO SCH ×4 (09:46→21:19)
[2021-08-19] MEDS: PROPRANOLOL 20 MG TAB PO SCH ×2 (09:46→21:00)
[2021-08-19] MEDS: DULoxetine 30MG CAPSULE (CYMBALTA) PO SCH (09:46)
[2021-08-19] MEDS: GABAPENTIN 300 MG CAP PO SCH ×3 (09:46→21:19)
[2021-08-19 13:58] VITALS: BP 129/53
[2021-08-19] MEDS: tiZANidine 4 MG TAB PO SCH (15:27)
[2021-08-19 15:45] VITALS: BP 117/60
[2021-08-19 20:00] VITALS: BP 100/58
[2021-08-19] MEDS: SENNA 8.6 MG TAB (SENOKOT) PO SCH (21:00)
[2021-08-19] MEDS: [UNRECOGNIZED DRUG - OTHER] PO SCH (21:19)
[2021-08-19] MEDS: AMITRIPTYLINE 10MG TABLET PO SCH (21:19)
[2021-08-20 06:00] VITALS: BP 125/64
[2021-08-20] MEDS: HEPARIN SOD (PORCINE) 5000UNITS/ML 1ML VIAL/SYRINGE SC SCH ×2 (08:51→20:48)
[2021-08-20] MEDS: VITAMIN D 1,000 INTERNATIONAL UNITS TABLET PO SCH (08:51)
[2021-08-20] MEDS: GABAPENTIN 300 MG CAP PO SCH ×3 (08:51→20:48)
[2021-08-20] MEDS: BACLOFEN 10 MG TAB PO SCH ×4 (08:51→20:49)
[2021-08-20] MEDS: LACTOBACILLUS ACIDOPHILUS CAP (BACID) PO SCH ×4 (08:51→20:49)
[2021-08-20] MEDS: PROPRANOLOL 20 MG TAB PO SCH ×2 (08:51→20:49)
[2021-08-20] MEDS: DOCUSATE SODIUM 100MG CAPSULE PO SCH ×2 (08:51→20:50)
[2021-08-20] MEDS: DULoxetine 30MG CAPSULE (CYMBALTA) PO SCH (08:51)
[2021-08-20] MEDS: REMEDY PHYTOPLEX Z-GUARD PASTE 113GM TUBE (FROM STOREROOM PRODUCT) TOP SCH ×3 (08:52→20:50)
[2021-08-20 14:00] VITALS: BP 151/63
[2021-08-20] MEDS: tiZANidine 4 MG TAB PO SCH (15:56)
[2021-08-20 20:00] VITALS: BP 91/55
[2021-08-20] MEDS: [UNRECOGNIZED DRUG - OTHER] PO SCH (20:47)
[2021-08-20] MEDS: AMITRIPTYLINE 10MG TABLET PO SCH (20:49)
[2021-08-20] MEDS: SENNA 8.6 MG TAB (SENOKOT) PO SCH (20:50)
[2021-08-21 06:00] VITALS: BP 124/57
[2021-08-21] MEDS: LACTOBACILLUS ACIDOPHILUS CAP (BACID) PO SCH ×4 (08:56→20:42)
[2021-08-21] MEDS: GABAPENTIN 300 MG CAP PO SCH ×3 (08:56→20:42)
[2021-08-21] MEDS: DOCUSATE SODIUM 100MG CAPSULE PO SCH ×3 (08:56→20:43)
[2021-08-21] MEDS: BACLOFEN 10 MG TAB PO SCH ×4 (08:56→20:42)
[2021-08-21] MEDS: VITAMIN D 1,000 INTERNATIONAL UNITS TABLET PO SCH (08:56)
[2021-08-21] MEDS: DULoxetine 30MG CAPSULE (CYMBALTA) PO SCH (08:56)
[2021-08-21] MEDS: PROPRANOLOL 20 MG TAB PO SCH ×2 (08:57→20:43)
[2021-08-21] MEDS: HEPARIN SOD (PORCINE) 5000UNITS/ML 1ML VIAL/SYRINGE SC SCH ×2 (08:57→20:43)
[2021-08-21] MEDS: REMEDY PHYTOPLEX Z-GUARD PASTE 113GM TUBE (FROM STOREROOM PRODUCT) TOP SCH ×3 (08:58→20:43)
[2021-08-21 10:25] LABS: BASO % 0.8 % (0.0-1.0); EOS # 0.2 10^3/uL (0.0-0.5); EOS % 3.8 % (0.0-3.0); HEMATOCRIT 39.4 % (36.0-47.0); HEMOGLOBIN 12.6 g/dl (12.0-15.5); LYMPH # 0.1 10^3/uL (1.5-5.0); LYMPH % 3.5 % (24.0-44.0); MEAN CORPUSCULAR HEMOGLOBIN 31.1 pg (27.0-33.0); MEAN CORPUSCULAR VOLUME 97.3 fl (80.0-96.0); MONO # 0.5 10^3/uL (0.0-0.8); NEUTROPHILS # 3.2 10^3/uL (1.5-8.5); NEUTROPHILS % 78.6 % (36.0-66.0); PLATELET COUNT, AUTOMATED 244 10^3/uL (150-450); RED BLOOD COUNT 4.05 10^6/uL (4.00-5.40)
[2021-08-21 10:43] LABS: BLOOD UREA NITROGEN 14 MG/DL (7-18); CALCIUM LEVEL 9.1 MG/DL (8.8-10.2); CARBON DIOXIDE LEVEL 29 MEQ/L (21-32); CHLORIDE LEVEL 107 MEQ/L (98-107); CREATININE FOR GFR 0.66 MG/DL (0.55-1.30); GLOMERULAR FILTRATION RATE > 60.0 (>45); GLUCOSE, FASTING 157 MG/DL (70-100); POTASSIUM SERUM 3.9 MEQ/L (3.5-5.1); SODIUM LEVEL 140 MEQ/L (136-145)
[2021-08-21 14:00] VITALS: BP 138/65
[2021-08-21] MEDS: tiZANidine 4 MG TAB PO SCH (15:08)
[2021-08-21] MEDS: ACETAMINOPHEN TAB 650MG DOSE (2X325MG) PO PRN ×2 (15:09→23:24)
[2021-08-21 20:00] VITALS: BP 114/53
[2021-08-21] MEDS: SENNA 8.6 MG TAB (SENOKOT) PO SCH (20:43)
[2021-08-21] MEDS: AMITRIPTYLINE 10MG TABLET PO SCH (20:43)
[2021-08-21] MEDS: [UNRECOGNIZED DRUG - OTHER] PO SCH (20:44)
[2021-08-22 06:00] VITALS: BP 128/62
[2021-08-22] MEDS: DOCUSATE SODIUM 100MG CAPSULE PO SCH (08:07)
[2021-08-22] MEDS: VITAMIN D 1,000 INTERNATIONAL UNITS TABLET PO SCH (08:11)
[2021-08-22] MEDS: HEPARIN SOD (PORCINE) 5000UNITS/ML 1ML VIAL/SYRINGE SC SCH ×3 (08:11→20:24)
[2021-08-22] MEDS: DULoxetine 30MG CAPSULE (CYMBALTA) PO SCH (08:11)
[2021-08-22] MEDS: GABAPENTIN 300 MG CAP PO SCH ×3 (08:11→20:21)
[2021-08-22] MEDS: LACTOBACILLUS ACIDOPHILUS CAP (BACID) PO SCH ×4 (08:11→20:21)
[2021-08-22] MEDS: PROPRANOLOL 20 MG TAB PO SCH ×2 (08:11→20:22)
[2021-08-22] MEDS: BACLOFEN 10 MG TAB PO SCH ×4 (08:11→20:21)
[2021-08-22] MEDS: REMEDY PHYTOPLEX Z-GUARD PASTE 113GM TUBE (FROM STOREROOM PRODUCT) TOP SCH ×3 (08:12→20:23)
[2021-08-22] MEDS ORDERED: BACL10TA2 PO (09:13)
[2021-08-22] MEDS ORDERED: PROP20TA72 PO (09:13)
[2021-08-22] MEDS ORDERED: GABA-282 PO (09:13)
[2021-08-22] MEDS ORDERED: DULO1CAP6 PO (09:13)
[2021-08-22] MEDS ORDERED: TIZA10TA PO (09:13)
[2021-08-22] MEDS: ACETAMINOPHEN TAB 650MG DOSE (2X325MG) PO PRN (15:08)
[2021-08-22] MEDS: tiZANidine 4 MG TAB PO SCH (15:08)
[2021-08-22 20:00] VITALS: BP 100/53
[2021-08-22 20:22] VITALS: BP 100/53
[2021-08-22] MEDS: [UNRECOGNIZED DRUG - OTHER] PO SCH (20:22)
[2021-08-22] MEDS ORDERED: tiZANidine 4 MG TAB PO SCH (21:00)
[2021-08-23 06:00] VITALS: BP 133/58
[2021-08-23] MEDS: PROPRANOLOL 20 MG TAB PO SCH (08:41)
[2021-08-23] MEDS: LACTOBACILLUS ACIDOPHILUS CAP (BACID) PO SCH ×2 (08:41→13:09)
[2021-08-23] MEDS: DULoxetine 30MG CAPSULE (CYMBALTA) PO SCH (08:41)
[2021-08-23] MEDS: GABAPENTIN 300 MG CAP PO SCH (08:42)
[2021-08-23] MEDS: VITAMIN D 1,000 INTERNATIONAL UNITS TABLET PO SCH (08:42)
[2021-08-23] MEDS: HEPARIN SOD (PORCINE) 5000UNITS/ML 1ML VIAL/SYRINGE SC SCH (08:42)
[2021-08-23] MEDS: BACLOFEN 10 MG TAB PO SCH ×2 (08:42→13:09)
[2021-08-23] MEDS: REMEDY PHYTOPLEX Z-GUARD PASTE 113GM TUBE (FROM STOREROOM PRODUCT) TOP SCH (08:43)
== END 2021-08-23 14:20 | disposition home health service (06) | DRG 60 ==
LOC: M PM&R 16:30
PROVIDERS: ADMIT Physical Medicine & Rehabilitation; ATTEND Physical Medicine & Rehabilitation
DX: G35 Multiple sclerosis (principal); R53.1 Weakness; G89.29 Other chronic pain; N31.9 Neuromuscular dysfunction of bladder, unspecified; F32.A Depression, unspecified; Z74.09 Other reduced mobility; Z74.1 Need for assistance with personal care; Z79.899 Other long term (current) drug therapy; Z88.2 Allergy status to sulfonamides; N80.9 Endometriosis, unspecified

== ENCOUNTER 2021-09-19 00:47 | Inpatient (IN) | payer MEDICARE ==
[~2021-09-19] VITALS: Ht 165.1 cm; Wt 66.0 kg
[2021-09-19] VITALS (7 sets, daily range): BP systolic 50–141; BP diastolic 30–65
[2021-09-19 02:18] LABS: RSV AMPLIFICATION NEGATIVE (NEGATIVE)
[2021-09-19 03:41] LABS: BASO % 0.3 % (0.0-1.0); EOS # 0.1 10^3/uL (0.0-0.5); EOS % 1.6 % (0.0-3.0); HEMATOCRIT 38.2 % (36.0-47.0); HEMOGLOBIN 12.9 g/dl (12.0-15.5); LYMPH # 0.1 10^3/uL (1.5-5.0); LYMPH % 0.9 % (24.0-44.0); MEAN CORPUSCULAR HEMOGLOBIN 31.3 pg (27.0-33.0); MEAN CORPUSCULAR HGB CONC 33.8 g/dl (32.0-36.5); MEAN CORPUSCULAR VOLUME 92.7 fl (80.0-96.0); MONO # 0.7 10^3/uL (0.0-0.8); MONO % 11.4 % (2.0-8.0); NEUTROPHILS # 5.4 10^3/uL (1.5-8.5); NEUTROPHILS % 85.5 % (36.0-66.0); PLATELET COUNT, AUTOMATED 225 10^3/uL (150-450); RED BLOOD COUNT 4.12 10^6/uL (4.00-5.40); WHITE BLOOD COUNT 6.3 10^3/uL (4.0-10.0)
[2021-09-19] MEDS ORDERED: ACETAMINOPHEN TAB 650MG DOSE (2X325MG) PO ONE (04:00)
[2021-09-19 04:17] LABS: ALBUMIN 3.3 GM/DL (3.2-5.2); ALT/SGPT 19 U/L (12-78); BILIRUBIN,DIRECT 0.1 MG/DL (0.0-0.2); BILIRUBIN,TOTAL 0.5 MG/DL (0.2-1.0); BLOOD UREA NITROGEN 12 MG/DL (7-18); CALCIUM LEVEL 8.6 MG/DL (8.8-10.2); CARBON DIOXIDE LEVEL 25 MEQ/L (21-32); CHLORIDE LEVEL 107 MEQ/L (98-107); CREATININE FOR GFR 0.57 MG/DL (0.55-1.30); GLOMERULAR FILTRATION RATE > 60.0 (>45); GLUCOSE, FASTING 131 MG/DL (70-100); LIPASE 87 U/L (73-393); POTASSIUM SERUM 4.2 MEQ/L (3.5-5.1); SODIUM LEVEL 139 MEQ/L (136-145); TOTAL PROTEIN 5.9 GM/DL (6.4-8.2)
[2021-09-19] MEDS ORDERED: NS 1,000 ML IV ONE ×2 (05:40→23:00)
[2021-09-19] MEDS ORDERED: BACL10TA2 PO (07:17)
[2021-09-19] MEDS ORDERED: DULO60CA35 PO (07:17)
[2021-09-19] MEDS ORDERED: PROP20TA PO (07:17)
[2021-09-19] MEDS ORDERED: TIZA10TA PO (07:17)
[2021-09-19] MEDS ORDERED: GABA-282 PO (07:17)
[2021-09-19] MEDS ORDERED: BACL1TAB8 PO (07:17)
[2021-09-19] MEDS ORDERED: ADVI200T PO (07:18)
[2021-09-19] MEDS ORDERED: HOME MED LIST COMPLETE! XX SCH (07:20)
[2021-09-19] MEDS ORDERED: IBUPROFEN 600MG TAB PO PRN (08:00)
[2021-09-19 09:02] LABS: ERYTHROCYTE SEDIMENTATION RATE 9 mm/hr (0-30)
[2021-09-19] MEDS: NS 1,000 ML IV SCH ×2 (10:00→20:32)
[2021-09-19] MEDS: DULoxetine 30MG CAPSULE (CYMBALTA) PO SCH (10:06)
[2021-09-19] MEDS: GABAPENTIN 300 MG CAP PO SCH ×3 (10:06→20:33)
[2021-09-19] MEDS: BACLOFEN 10 MG TAB PO SCH ×4 (10:06→20:25)
[2021-09-19] MEDS: AUGMENTIN 875 MG TAB PO SCH ×2 (12:06→20:33)
[2021-09-19] MEDS ORDERED: EXCEDRIN MIGRAINE TABLET PO PRN (12:35)
[2021-09-19] MEDS: ONDANSETRON 4MG/2ML VIAL IV PRN (14:42)
[2021-09-19] MEDS ORDERED: tiZANidine 4 MG TAB PO SCH ×2 (15:00→21:00)
[2021-09-19] MEDS: ACETAMINOPHEN TAB 650MG DOSE (2X325MG) PO PRN (15:28)
[2021-09-19] MEDS: SUCRALFATE SUSP 1GM/10ML UD PO SCH ×2 (17:52→20:33)
[2021-09-19] MEDS ORDERED: NS 500 ML IV ONE (20:10)
[2021-09-19] MEDS: PANTOPRAZOLE 40MG TAB (PROTONIX) PO SCH (20:33)
[2021-09-19] MEDS ORDERED: HYDROCORTISONE 100 MG/2 ML VIAL (J1720 PER 1) As Ordered ONE (23:58)
[2021-09-20] VITALS (107 sets, daily range): BP systolic 56–167; BP diastolic 30–96
[2021-09-20] MEDS ORDERED: HYDROCORTISONE 100 MG/2 ML VIAL (J1720 PER 1) IV ONE
[2021-09-20] MEDS ORDERED: NS 1,000 ML IV ONE
[2021-09-20] MEDS: NOREPINEPHRINE BITARTRATE 8 MG in D5W 492 ML IV SCH (00:10)
[2021-09-20] MEDS ORDERED: MIDAZOLAM INJ 2MG/2ML VIAL (J2250 PER 1MG) As Ordered ONE (00:47)
[2021-09-20] MEDS ORDERED: NOREPINEPHRINE BITARTRATE 8 MG in D5W 492 ML IV SCH (01:00)
[2021-09-20] MEDS ORDERED: MIDAZOLAM INJ 2MG/2ML VIAL (J2250 PER 1MG) IV ONE (01:00)
[2021-09-20 04:57] LABS: BLOOD UREA NITROGEN 9 MG/DL (7-18); CALCIUM LEVEL 8.1 MG/DL (8.8-10.2); CARBON DIOXIDE LEVEL 21 MEQ/L (21-32); CHLORIDE LEVEL 118 MEQ/L (98-107); GLOMERULAR FILTRATION RATE > 60.0 (>45); GLUCOSE, FASTING 133 MG/DL (70-100); POTASSIUM SERUM 4.1 MEQ/L (3.5-5.1); SODIUM LEVEL 146 MEQ/L (136-145)
[2021-09-20 05:25] LABS: HEMATOCRIT 34.7 % (36.0-47.0); HEMOGLOBIN 11.5 g/dl (12.0-15.5); MEAN CORPUSCULAR HEMOGLOBIN 31.6 pg (27.0-33.0); MEAN CORPUSCULAR HGB CONC 33.1 g/dl (32.0-36.5); MEAN CORPUSCULAR VOLUME 95.3 fl (80.0-96.0); PLATELET COUNT, AUTOMATED 196 10^3/uL (150-450); RED BLOOD COUNT 3.64 10^6/uL (4.00-5.40); WHITE BLOOD COUNT 6.7 10^3/uL (4.0-10.0)
[2021-09-20] MEDS: BACLOFEN 10 MG TAB PO SCH ×4 (09:33→20:11)
[2021-09-20] MEDS: GABAPENTIN 300 MG CAP PO SCH ×3 (09:33→20:10)
[2021-09-20] MEDS: DULoxetine 30MG CAPSULE (CYMBALTA) PO SCH (09:33)
[2021-09-20] MEDS: AUGMENTIN 875 MG TAB PO SCH ×2 (09:33→20:11)
[2021-09-20] MEDS: SUCRALFATE SUSP 1GM/10ML UD PO SCH ×4 (09:55→20:10)
[2021-09-20] MEDS: ACETAMINOPHEN TAB 650MG DOSE (2X325MG) PO PRN ×2 (09:55→23:09)
[2021-09-20] MEDS ORDERED: tiZANidine 4 MG TAB PO SCH ×2 (15:00→21:00)
[2021-09-20] MEDS ORDERED: NS 500 ML IV ONE (16:00)
[2021-09-20] MEDS: PANTOPRAZOLE 40MG TAB (PROTONIX) PO SCH (20:11)
[2021-09-21] VITALS (24 sets, daily range): BP systolic 107–156; BP diastolic 51–78
[2021-09-21] MEDS: NOREPINEPHRINE BITARTRATE 8 MG in D5W 492 ML IV SCH (01:00)
[2021-09-21 04:27] LABS: HEMATOCRIT 32.5 % (36.0-47.0); HEMOGLOBIN 10.8 g/dl (12.0-15.5); MEAN CORPUSCULAR HEMOGLOBIN 31.5 pg (27.0-33.0); MEAN CORPUSCULAR HGB CONC 33.2 g/dl (32.0-36.5); MEAN CORPUSCULAR VOLUME 94.8 fl (80.0-96.0); PLATELET COUNT, AUTOMATED 185 10^3/uL (150-450); RED BLOOD COUNT 3.43 10^6/uL (4.00-5.40); WHITE BLOOD COUNT 5.3 10^3/uL (4.0-10.0)
[2021-09-21 04:53] LABS: BLOOD UREA NITROGEN 9 MG/DL (7-18); CALCIUM LEVEL 7.8 MG/DL (8.8-10.2); CARBON DIOXIDE LEVEL 27 MEQ/L (21-32); CHLORIDE LEVEL 115 MEQ/L (98-107); CREATININE FOR GFR 0.43 MG/DL (0.55-1.30); GLOMERULAR FILTRATION RATE > 60.0 (>45); GLUCOSE, FASTING 95 MG/DL (70-100); POTASSIUM SERUM 3.6 MEQ/L (3.5-5.1); SODIUM LEVEL 146 MEQ/L (136-145)
[2021-09-21] MEDS: SUCRALFATE SUSP 1GM/10ML UD PO SCH ×4 (07:42→21:12)
[2021-09-21] MEDS: GABAPENTIN 300 MG CAP PO SCH ×3 (07:43→21:12)
[2021-09-21] MEDS: AUGMENTIN 875 MG TAB PO SCH ×2 (07:43→21:12)
[2021-09-21] MEDS: BACLOFEN 10 MG TAB PO SCH ×4 (07:43→21:12)
[2021-09-21] MEDS: DULoxetine 30MG CAPSULE (CYMBALTA) PO SCH (07:44)
[2021-09-21 09:45] LABS: BLOOD UREA NITROGEN 8 MG/DL (7-18); CALCIUM LEVEL 7.9 MG/DL (8.8-10.2); CARBON DIOXIDE LEVEL 25 MEQ/L (21-32); CHLORIDE LEVEL 110 MEQ/L (98-107); GLOMERULAR FILTRATION RATE > 60.0 (>45); GLUCOSE, FASTING 129 MG/DL (70-100); POTASSIUM SERUM 3.5 MEQ/L (3.5-5.1); SODIUM LEVEL 142 MEQ/L (136-145)
[2021-09-21] MEDS: ONDANSETRON 4MG/2ML VIAL IV PRN (10:02)
[2021-09-21] MEDS ORDERED: LORazepam 2 MG/ML VIAL IV PRN (12:05)
[2021-09-21] MEDS: PROPRANOLOL 20 MG TAB PO SCH ×2 (12:19→21:15)
[2021-09-21] MEDS: PANTOPRAZOLE 40MG TAB (PROTONIX) PO SCH (21:12)
[2021-09-22 06:00] VITALS: BP 142/77
[2021-09-22 06:04] LABS: HEMATOCRIT 33.9 % (36.0-47.0); HEMOGLOBIN 11.6 g/dl (12.0-15.5); MEAN CORPUSCULAR HEMOGLOBIN 31.4 pg (27.0-33.0); MEAN CORPUSCULAR HGB CONC 34.2 g/dl (32.0-36.5); MEAN CORPUSCULAR VOLUME 91.9 fl (80.0-96.0); PLATELET COUNT, AUTOMATED 195 10^3/uL (150-450); RED BLOOD COUNT 3.69 10^6/uL (4.00-5.40)
[2021-09-22 06:33] LABS: BLOOD UREA NITROGEN 7 MG/DL (7-18); CALCIUM LEVEL 8.2 MG/DL (8.8-10.2); CARBON DIOXIDE LEVEL 29 MEQ/L (21-32); CHLORIDE LEVEL 103 MEQ/L (98-107); CREATININE FOR GFR 0.41 MG/DL (0.55-1.30); GLOMERULAR FILTRATION RATE > 60.0 (>45); GLUCOSE, FASTING 97 MG/DL (70-100); POTASSIUM SERUM 3.4 MEQ/L (3.5-5.1); SODIUM LEVEL 138 MEQ/L (136-145)
[2021-09-22] MEDS ORDERED: POTASSIUM CHLORIDE 10MEQ SR TABLET PO ONE (08:00)
[2021-09-22] MEDS: GABAPENTIN 300 MG CAP PO SCH ×3 (08:40→20:23)
[2021-09-22] MEDS: AUGMENTIN 875 MG TAB PO SCH ×2 (08:40→20:24)
[2021-09-22] MEDS: DULoxetine 30MG CAPSULE (CYMBALTA) PO SCH (08:41)
[2021-09-22] MEDS: SUCRALFATE SUSP 1GM/10ML UD PO SCH ×4 (08:41→20:22)
[2021-09-22] MEDS: BACLOFEN 10 MG TAB PO SCH ×4 (08:41→20:24)
[2021-09-22] MEDS: PROPRANOLOL 20 MG TAB PO SCH ×2 (08:43→20:23)
[2021-09-22] MEDS ORDERED: diazePAM 10MG/2ML SYRINGE (J3360 PER 5MG) IV PRN (17:20)
[2021-09-22] MEDS ORDERED: ONDANSETRON 4 MG ORAL DISINTEGRATING TAB PO PRN (17:25)
[2021-09-22] MEDS: ACETAMINOPHEN TAB 650MG DOSE (2X325MG) PO PRN (20:23)
[2021-09-22] MEDS: PANTOPRAZOLE 40MG TAB (PROTONIX) PO SCH (20:24)
[2021-09-22 22:00] VITALS: BP 138/74
[2021-09-23 06:00] VITALS: BP 133/75
[2021-09-23 06:23] LABS: HEMATOCRIT 36.8 % (36.0-47.0); HEMOGLOBIN 12.5 g/dl (12.0-15.5); MEAN CORPUSCULAR HEMOGLOBIN 31.6 pg (27.0-33.0); MEAN CORPUSCULAR VOLUME 92.9 fl (80.0-96.0); PLATELET COUNT, AUTOMATED 215 10^3/uL (150-450); RED BLOOD COUNT 3.96 10^6/uL (4.00-5.40); WHITE BLOOD COUNT 5.1 10^3/uL (4.0-10.0)
[2021-09-23 06:42] LABS: BLOOD UREA NITROGEN 9 MG/DL (7-18); CALCIUM LEVEL 8.7 MG/DL (8.8-10.2); CARBON DIOXIDE LEVEL 28 MEQ/L (21-32); CHLORIDE LEVEL 106 MEQ/L (98-107); CREATININE FOR GFR 0.43 MG/DL (0.55-1.30); GLOMERULAR FILTRATION RATE > 60.0 (>45); GLUCOSE, FASTING 96 MG/DL (70-100); POTASSIUM SERUM 3.8 MEQ/L (3.5-5.1); SODIUM LEVEL 138 MEQ/L (136-145)
[2021-09-23] MEDS: SUCRALFATE SUSP 1GM/10ML UD PO SCH ×4 (08:50→21:34)
[2021-09-23] MEDS: DULoxetine 30MG CAPSULE (CYMBALTA) PO SCH (08:50)
[2021-09-23] MEDS: BACLOFEN 10 MG TAB PO SCH ×4 (08:50→21:35)
[2021-09-23] MEDS: AUGMENTIN 875 MG TAB PO SCH ×2 (08:50→21:34)
[2021-09-23] MEDS: GABAPENTIN 300 MG CAP PO SCH ×3 (08:50→21:35)
[2021-09-23] MEDS: PROPRANOLOL 20 MG TAB PO SCH ×2 (08:52→21:35)
[2021-09-23 14:00] VITALS: BP 129/76
[2021-09-23] MEDS: ACETAMINOPHEN TAB 650MG DOSE (2X325MG) PO PRN (18:36)
[2021-09-23] MEDS: PANTOPRAZOLE 40MG TAB (PROTONIX) PO SCH (21:35)
[2021-09-23 22:00] VITALS: BP 112/56
[2021-09-24 06:00] VITALS: BP 111/60
[2021-09-24] MEDS: DULoxetine 30MG CAPSULE (CYMBALTA) PO SCH (09:15)
[2021-09-24] MEDS: AUGMENTIN 875 MG TAB PO SCH ×2 (09:15→20:39)
[2021-09-24] MEDS: SUCRALFATE SUSP 1GM/10ML UD PO SCH ×4 (09:15→20:39)
[2021-09-24] MEDS: BACLOFEN 10 MG TAB PO SCH ×4 (09:17→20:40)
[2021-09-24] MEDS: PROPRANOLOL 20 MG TAB PO SCH ×2 (09:17→20:41)
[2021-09-24] MEDS: GABAPENTIN 300 MG CAP PO SCH ×3 (09:17→20:39)
[2021-09-24] MEDS: DOCUSATE SODIUM 100MG CAPSULE PO SCH ×2 (09:19→20:39)
[2021-09-24 10:09] LABS: HEMATOCRIT 40.3 % (36.0-47.0); HEMOGLOBIN 13.4 g/dl (12.0-15.5); MEAN CORPUSCULAR HEMOGLOBIN 30.9 pg (27.0-33.0); MEAN CORPUSCULAR HGB CONC 33.3 g/dl (32.0-36.5); MEAN CORPUSCULAR VOLUME 93.1 fl (80.0-96.0); PLATELET COUNT, AUTOMATED 263 10^3/uL (150-450); RED BLOOD COUNT 4.33 10^6/uL (4.00-5.40); WHITE BLOOD COUNT 4.6 10^3/uL (4.0-10.0)
[2021-09-24 11:07] LABS: BLOOD UREA NITROGEN 10 MG/DL (7-18); CALCIUM LEVEL 8.6 MG/DL (8.8-10.2); CARBON DIOXIDE LEVEL 27 MEQ/L (21-32); CHLORIDE LEVEL 103 MEQ/L (98-107); CREATININE FOR GFR 0.53 MG/DL (0.55-1.30); GLOMERULAR FILTRATION RATE > 60.0 (>45); GLUCOSE, FASTING 93 MG/DL (70-100); SODIUM LEVEL 136 MEQ/L (136-145)
[2021-09-24 14:00] VITALS: BP 114/66
[2021-09-24] MEDS: MIRALAX *UNIT DOSE* 17GM PACKET PO PRN (20:39)
[2021-09-24] MEDS: PANTOPRAZOLE 40MG TAB (PROTONIX) PO SCH (20:40)
[2021-09-24] MEDS: SIPONIMOD 2 MG PO SCH (20:41)
[2021-09-24 22:00] VITALS: BP 137/76
[2021-09-24] MEDS: ACETAMINOPHEN TAB 650MG DOSE (2X325MG) PO PRN (22:49)
[2021-09-25 06:00] VITALS: BP 111/64
[2021-09-25 06:32] LABS: HEMATOCRIT 38.2 % (36.0-47.0); HEMOGLOBIN 12.7 g/dl (12.0-15.5); MEAN CORPUSCULAR HEMOGLOBIN 30.8 pg (27.0-33.0); MEAN CORPUSCULAR HGB CONC 33.2 g/dl (32.0-36.5); MEAN CORPUSCULAR VOLUME 92.7 fl (80.0-96.0); PLATELET COUNT, AUTOMATED 307 10^3/uL (150-450); RED BLOOD COUNT 4.12 10^6/uL (4.00-5.40); WHITE BLOOD COUNT 3.7 10^3/uL (4.0-10.0)
[2021-09-25 06:52] LABS: BLOOD UREA NITROGEN 10 MG/DL (7-18); CALCIUM LEVEL 8.8 MG/DL (8.8-10.2); CARBON DIOXIDE LEVEL 27 MEQ/L (21-32); CHLORIDE LEVEL 105 MEQ/L (98-107); CREATININE FOR GFR 0.52 MG/DL (0.55-1.30); GLOMERULAR FILTRATION RATE > 60.0 (>45); GLUCOSE, FASTING 105 MG/DL (70-100); POTASSIUM SERUM 4.2 MEQ/L (3.5-5.1); SODIUM LEVEL 139 MEQ/L (136-145)
[2021-09-25] MEDS: SUCRALFATE SUSP 1GM/10ML UD PO SCH ×4 (09:51→20:10)
[2021-09-25] MEDS: DOCUSATE SODIUM 100MG CAPSULE PO SCH ×2 (09:51→20:10)
[2021-09-25] MEDS: AUGMENTIN 875 MG TAB PO SCH ×2 (09:51→20:10)
[2021-09-25] MEDS: BACLOFEN 10 MG TAB PO SCH ×4 (09:51→20:11)
[2021-09-25] MEDS: DULoxetine 30MG CAPSULE (CYMBALTA) PO SCH (09:51)
[2021-09-25] MEDS: ACETAMINOPHEN TAB 650MG DOSE (2X325MG) PO PRN ×2 (09:52→18:27)
[2021-09-25] MEDS: MIRALAX *UNIT DOSE* 17GM PACKET PO PRN (09:52)
[2021-09-25] MEDS: GABAPENTIN 300 MG CAP PO SCH ×3 (09:52→20:10)
[2021-09-25] MEDS: PROPRANOLOL 20 MG TAB PO SCH ×2 (10:00→20:13)
[2021-09-25 14:00] VITALS: BP 118/74
[2021-09-25] MEDS: ONDANSETRON 4MG/2ML VIAL IV PRN (16:08)
[2021-09-25] MEDS ORDERED: PROHANCE 279.3MG/ML 15ML VIAL As Ordered ONE (16:34)
[2021-09-25] MEDS: PANTOPRAZOLE 40MG TAB (PROTONIX) PO SCH (20:10)
[2021-09-25] MEDS: SIPONIMOD 2 MG PO SCH (20:15)
[2021-09-25 22:00] VITALS: BP 120/73
[2021-09-26 06:00] VITALS: BP 123/72
[2021-09-26 07:38] LABS: HEMATOCRIT 38.8 % (36.0-47.0); HEMOGLOBIN 12.8 g/dl (12.0-15.5); MEAN CORPUSCULAR HEMOGLOBIN 30.9 pg (27.0-33.0); MEAN CORPUSCULAR VOLUME 93.7 fl (80.0-96.0); PLATELET COUNT, AUTOMATED 342 10^3/uL (150-450); RED BLOOD COUNT 4.14 10^6/uL (4.00-5.40); WHITE BLOOD COUNT 4.4 10^3/uL (4.0-10.0)
[2021-09-26 08:00] LABS: BLOOD UREA NITROGEN 13 MG/DL (7-18); CALCIUM LEVEL 8.9 MG/DL (8.8-10.2); CARBON DIOXIDE LEVEL 26 MEQ/L (21-32); CHLORIDE LEVEL 106 MEQ/L (98-107); CREATININE FOR GFR 0.46 MG/DL (0.55-1.30); GLOMERULAR FILTRATION RATE > 60.0 (>45); GLUCOSE, FASTING 96 MG/DL (70-100); POTASSIUM SERUM 4.5 MEQ/L (3.5-5.1); SODIUM LEVEL 139 MEQ/L (136-145)
[2021-09-26] MEDS: SUCRALFATE SUSP 1GM/10ML UD PO SCH ×4 (09:22→20:17)
[2021-09-26] MEDS: DOCUSATE SODIUM 100MG CAPSULE PO SCH ×2 (09:23→20:23)
[2021-09-26] MEDS: PROPRANOLOL 20 MG TAB PO SCH ×2 (09:23→20:21)
[2021-09-26] MEDS: DULoxetine 30MG CAPSULE (CYMBALTA) PO SCH (09:23)
[2021-09-26] MEDS: GABAPENTIN 300 MG CAP PO SCH ×3 (09:23→20:18)
[2021-09-26] MEDS: BACLOFEN 10 MG TAB PO SCH ×5 (09:32→20:24)
[2021-09-26] MEDS: MIRALAX *UNIT DOSE* 17GM PACKET PO PRN (09:32)
[2021-09-26 14:00] VITALS: BP 110/64
[2021-09-26] MEDS: SIPONIMOD 2 MG PO SCH (20:18)
[2021-09-26] MEDS: PANTOPRAZOLE 40MG TAB (PROTONIX) PO SCH (20:33)
[2021-09-26 22:00] VITALS: BP 101/58
[2021-09-27 06:00] VITALS: BP 104/59
[2021-09-27 06:41] LABS: HEMATOCRIT 39.4 % (36.0-47.0); HEMOGLOBIN 12.9 g/dl (12.0-15.5); MEAN CORPUSCULAR HGB CONC 32.7 g/dl (32.0-36.5); MEAN CORPUSCULAR VOLUME 94.7 fl (80.0-96.0); PLATELET COUNT, AUTOMATED 365 10^3/uL (150-450); RED BLOOD COUNT 4.16 10^6/uL (4.00-5.40); WHITE BLOOD COUNT 4.7 10^3/uL (4.0-10.0)
[2021-09-27 07:08] LABS: BLOOD UREA NITROGEN 14 MG/DL (7-18); CALCIUM LEVEL 8.6 MG/DL (8.8-10.2); CARBON DIOXIDE LEVEL 28 MEQ/L (21-32); CHLORIDE LEVEL 104 MEQ/L (98-107); CREATININE FOR GFR 0.45 MG/DL (0.55-1.30); GLOMERULAR FILTRATION RATE > 60.0 (>45); GLUCOSE, FASTING 94 MG/DL (70-100); POTASSIUM SERUM 4.4 MEQ/L (3.5-5.1); SODIUM LEVEL 138 MEQ/L (136-145)
[2021-09-27] MEDS: DOCUSATE SODIUM 100MG CAPSULE PO SCH ×2 (08:08→20:13)
[2021-09-27] MEDS: SUCRALFATE SUSP 1GM/10ML UD PO SCH ×4 (08:09→20:13)
[2021-09-27] MEDS: GABAPENTIN 300 MG CAP PO SCH ×3 (08:09→20:13)
[2021-09-27] MEDS: DULoxetine 30MG CAPSULE (CYMBALTA) PO SCH (08:09)
[2021-09-27] MEDS: BACLOFEN 10 MG TAB PO SCH ×3 (08:10→20:13)
[2021-09-27] MEDS: PROPRANOLOL 20 MG TAB PO SCH ×2 (09:00→20:13)
[2021-09-27] MEDS: SENNA 8.6 MG TAB (SENOKOT) PO SCH ×2 (11:09→20:13)
[2021-09-27] MEDS: ACETAMINOPHEN TAB 650MG DOSE (2X325MG) PO PRN (11:10)
[2021-09-27 14:00] VITALS: BP 106/60
[2021-09-27] MEDS: PANTOPRAZOLE 40MG TAB (PROTONIX) PO SCH (20:13)
[2021-09-27] MEDS: SIPONIMOD 2 MG PO SCH (20:14)
[2021-09-27 22:00] VITALS: BP 121/73
[2021-09-28 06:00] VITALS: BP 112/60
[2021-09-28 06:50] LABS: HEMATOCRIT 37.8 % (36.0-47.0); HEMOGLOBIN 12.7 g/dl (12.0-15.5); MEAN CORPUSCULAR HEMOGLOBIN 31.1 pg (27.0-33.0); MEAN CORPUSCULAR HGB CONC 33.6 g/dl (32.0-36.5); MEAN CORPUSCULAR VOLUME 92.6 fl (80.0-96.0); PLATELET COUNT, AUTOMATED 375 10^3/uL (150-450); RED BLOOD COUNT 4.08 10^6/uL (4.00-5.40); WHITE BLOOD COUNT 5.5 10^3/uL (4.0-10.0)
[2021-09-28 07:15] LABS: BLOOD UREA NITROGEN 14 MG/DL (7-18); CALCIUM LEVEL 8.5 MG/DL (8.8-10.2); CARBON DIOXIDE LEVEL 27 MEQ/L (21-32); CHLORIDE LEVEL 105 MEQ/L (98-107); CREATININE FOR GFR 0.49 MG/DL (0.55-1.30); GLOMERULAR FILTRATION RATE > 60.0 (>45); GLUCOSE, FASTING 94 MG/DL (70-100); POTASSIUM SERUM 4.5 MEQ/L (3.5-5.1); SODIUM LEVEL 139 MEQ/L (136-145)
[2021-09-28] MEDS: SUCRALFATE SUSP 1GM/10ML UD PO SCH ×4 (07:58→20:06)
[2021-09-28] MEDS: BACLOFEN 10 MG TAB PO SCH ×4 (08:00→20:07)
[2021-09-28] MEDS: PROPRANOLOL 20 MG TAB PO SCH ×2 (08:01→20:08)
[2021-09-28] MEDS: GABAPENTIN 300 MG CAP PO SCH ×3 (08:01→20:06)
[2021-09-28] MEDS: SENNA 8.6 MG TAB (SENOKOT) PO SCH ×2 (08:01→20:07)
[2021-09-28] MEDS: DULoxetine 30MG CAPSULE (CYMBALTA) PO SCH (08:01)
[2021-09-28] MEDS: DOCUSATE SODIUM 100MG CAPSULE PO SCH ×2 (08:01→20:07)
[2021-09-28] MEDS: MIRALAX *UNIT DOSE* 17GM PACKET PO PRN (12:36)
[2021-09-28] MEDS: PANTOPRAZOLE 40MG TAB (PROTONIX) PO SCH (20:06)
[2021-09-28] MEDS: SIPONIMOD 2 MG PO SCH (20:08)
[2021-09-28 20:49] VITALS: BP 107/60
[2021-09-29] VITALS (18 sets, daily range): BP systolic 60–128; BP diastolic 35–67
[2021-09-29 06:48] LABS: HEMATOCRIT 36.8 % (36.0-47.0); HEMOGLOBIN 12.2 g/dl (12.0-15.5); MEAN CORPUSCULAR HEMOGLOBIN 30.6 pg (27.0-33.0); MEAN CORPUSCULAR HGB CONC 33.2 g/dl (32.0-36.5); MEAN CORPUSCULAR VOLUME 92.2 fl (80.0-96.0); PLATELET COUNT, AUTOMATED 366 10^3/uL (150-450); RED BLOOD COUNT 3.99 10^6/uL (4.00-5.40)
[2021-09-29 07:12] LABS: BLOOD UREA NITROGEN 12 MG/DL (7-18); CALCIUM LEVEL 8.6 MG/DL (8.8-10.2); CARBON DIOXIDE LEVEL 28 MEQ/L (21-32); CHLORIDE LEVEL 106 MEQ/L (98-107); CREATININE FOR GFR 0.56 MG/DL (0.55-1.30); GLOMERULAR FILTRATION RATE > 60.0 (>45); GLUCOSE, FASTING 99 MG/DL (70-100); POTASSIUM SERUM 4.2 MEQ/L (3.5-5.1); SODIUM LEVEL 141 MEQ/L (136-145)
[2021-09-29] MEDS: DOCUSATE SODIUM 100MG CAPSULE PO SCH ×2 (08:38→20:30)
[2021-09-29] MEDS: SENNA 8.6 MG TAB (SENOKOT) PO SCH ×2 (08:39→20:30)
[2021-09-29] MEDS: GABAPENTIN 300 MG CAP PO SCH ×3 (08:39→20:29)
[2021-09-29] MEDS: BACLOFEN 10 MG TAB PO SCH ×4 (08:39→20:29)
[2021-09-29] MEDS: SUCRALFATE SUSP 1GM/10ML UD PO SCH ×4 (08:39→20:30)
[2021-09-29] MEDS: DULoxetine 30MG CAPSULE (CYMBALTA) PO SCH (08:39)
[2021-09-29] MEDS: PROPRANOLOL 20 MG TAB PO SCH (08:40)
[2021-09-29] MEDS ORDERED: NS 1,000 ML IV ONE (14:10)
[2021-09-29 14:25] LABS: ABG BASE EXCESS -4.8 (-2.0-2.0); ABG HCO3 19.5 MEQ/L (22.0-26.0); ABG O2 SATURATION 99.4 % (95.0-99.0); ABG PARTIAL PRESSURE CO2 34.1 mmHg (35.0-45.0); ABG PARTIAL PRESSURE O2 204.7 mmHg (75.0-100.0); ABG STANDARD HCO3 20.6 MEQ/L (22.0-26.0); ABG TOTAL CO2 20.5 MEQ/L (23.0-31.0); ABG pH (ARTERIAL) 7.375 UNITS (7.350-7.450)
[2021-09-29] MEDS ORDERED: ISOVUE-370 76% 100ML VIAL As Ordered ONE (15:06)
[2021-09-29 15:16] LABS: ALBUMIN 2.8 GM/DL (3.2-5.2); ALT/SGPT 38 U/L (12-78); BILIRUBIN,TOTAL 0.4 MG/DL (0.2-1.0); BLOOD UREA NITROGEN 14 MG/DL (7-18); CALCIUM LEVEL 8.3 MG/DL (8.8-10.2); CARBON DIOXIDE LEVEL 24 MEQ/L (21-32); CHLORIDE LEVEL 107 MEQ/L (98-107); CREATININE FOR GFR 0.54 MG/DL (0.55-1.30); GLOMERULAR FILTRATION RATE > 60.0 (>45); GLUCOSE, FASTING 123 MG/DL (70-100); POTASSIUM SERUM 4.9 MEQ/L (3.5-5.1); SODIUM LEVEL 139 MEQ/L (136-145); TOTAL PROTEIN 5.8 GM/DL (6.4-8.2)
[2021-09-29 15:17] LABS: MAGNESIUM LEVEL 2.2 MG/DL (1.8-2.4)
[2021-09-29] MEDS: ONDANSETRON 4MG/2ML VIAL IV PRN (15:34)
[2021-09-29] MEDS ORDERED: HEPARIN SOD (PORCINE) 5000UNITS/ML 1ML VIAL/SYRINGE IV PRN (15:35)
[2021-09-29 15:47] LABS: CK-MB VALUE MASS 1.1 NG/ML (<3.6); MB/CK RELATIVE INDEX 1.83 (< OR =4)
[2021-09-29] MEDS ORDERED: HEPARIN SOD (PORCINE) 5000UNITS/ML 1ML VIAL/SYRINGE IV ONE (16:00)
[2021-09-29] MEDS ORDERED: ALTEPLASE RECOMBINANT IV ONE (16:00)
[2021-09-29 16:09] LABS: HEMATOCRIT 40.2 % (36.0-47.0); HEMOGLOBIN 13.1 g/dl (12.0-15.5); MEAN CORPUSCULAR HGB CONC 32.6 g/dl (32.0-36.5); PLATELET COUNT, AUTOMATED 353 10^3/uL (150-450); RED BLOOD COUNT 4.23 10^6/uL (4.00-5.40); WHITE BLOOD COUNT 13.1 10^3/uL (4.0-10.0)
[2021-09-29 16:31] LABS: PROTHROMBIN TIME 13.6 SECONDS (12.7-14.5)
[2021-09-29 16:32] LABS: PARTIAL THROMBOPLASTIN TIME 35.6 SECONDS (25.9-37.0)
[2021-09-29] MEDS ORDERED: NS 500 ML IV ONE (16:45)
[2021-09-29] MEDS: PANTOPRAZOLE 40MG TAB (PROTONIX) PO SCH (20:29)
[2021-09-29] MEDS: HEPARIN DRIP 25,000 UNITS in IV 1 EA IV SCH (20:36)
[2021-09-29] MEDS: SIPONIMOD 2 MG PO SCH (21:00)
[2021-09-29 22:30] LABS: CK-MB VALUE MASS 11.5 NG/ML (<3.6); MB/CK RELATIVE INDEX 8.78 (< OR =4)
[2021-09-30] VITALS (15 sets, daily range): BP systolic 99–151; BP diastolic 54–66
[2021-09-30 02:09] LABS: CK-MB VALUE MASS 9.8 NG/ML (<3.6); MB/CK RELATIVE INDEX 12.41 (< OR =4)
[2021-09-30 05:43] LABS: HEMATOCRIT 34.2 % (36.0-47.0); HEMOGLOBIN 11.5 g/dl (12.0-15.5); MEAN CORPUSCULAR HEMOGLOBIN 31.2 pg (27.0-33.0); MEAN CORPUSCULAR HGB CONC 33.6 g/dl (32.0-36.5); MEAN CORPUSCULAR VOLUME 92.7 fl (80.0-96.0); PLATELET COUNT, AUTOMATED 318 10^3/uL (150-450); RED BLOOD COUNT 3.69 10^6/uL (4.00-5.40)
[2021-09-30 06:08] LABS: BLOOD UREA NITROGEN 15 MG/DL (7-18); CALCIUM LEVEL 8.2 MG/DL (8.8-10.2); CARBON DIOXIDE LEVEL 25 MEQ/L (21-32); CHLORIDE LEVEL 109 MEQ/L (98-107); CREATININE FOR GFR 0.42 MG/DL (0.55-1.30); GLOMERULAR FILTRATION RATE > 60.0 (>45); GLUCOSE, FASTING 97 MG/DL (70-100); MAGNESIUM LEVEL 1.9 MG/DL (1.8-2.4); POTASSIUM SERUM 3.9 MEQ/L (3.5-5.1); SODIUM LEVEL 141 MEQ/L (136-145)
[2021-09-30 06:12] LABS: CK-MB VALUE MASS 7.8 NG/ML (<3.6); MB/CK RELATIVE INDEX 11.3 (< OR =4)
[2021-09-30] MEDS: BACLOFEN 10 MG TAB PO SCH ×4 (08:09→20:13)
[2021-09-30] MEDS: DOCUSATE SODIUM 100MG CAPSULE PO SCH ×2 (08:10→20:10)
[2021-09-30] MEDS: DULoxetine 30MG CAPSULE (CYMBALTA) PO SCH (08:10)
[2021-09-30] MEDS: SENNA 8.6 MG TAB (SENOKOT) PO SCH ×3 (08:10→20:14)
[2021-09-30] MEDS: GABAPENTIN 300 MG CAP PO SCH ×3 (08:10→20:10)
[2021-09-30] MEDS: SUCRALFATE SUSP 1GM/10ML UD PO SCH ×4 (08:10→20:13)
[2021-09-30 09:08] LABS: CK-MB VALUE MASS 6.2 NG/ML (<3.6); MB/CK RELATIVE INDEX 7.95 (< OR =4)
[2021-09-30 09:30] LABS: MB/CK RELATIVE INDEX 9.84 (< OR =4)
[2021-09-30 13:16] LABS: CK-MB VALUE MASS 4.9 NG/ML (<3.6); MB/CK RELATIVE INDEX 8.6 (< OR =4)
[2021-09-30] MEDS: PANTOPRAZOLE 40MG TAB (PROTONIX) PO SCH (20:10)
[2021-09-30] MEDS: SIPONIMOD 2 MG PO SCH (20:14)
[2021-10-01 06:00] VITALS: BP 115/68
[2021-10-01 06:13] LABS: HEMATOCRIT 33.9 % (36.0-47.0); HEMOGLOBIN 11.1 g/dl (12.0-15.5); MEAN CORPUSCULAR HEMOGLOBIN 30.3 pg (27.0-33.0); MEAN CORPUSCULAR HGB CONC 32.7 g/dl (32.0-36.5); MEAN CORPUSCULAR VOLUME 92.6 fl (80.0-96.0); PLATELET COUNT, AUTOMATED 367 10^3/uL (150-450); RED BLOOD COUNT 3.66 10^6/uL (4.00-5.40); WHITE BLOOD COUNT 6.1 10^3/uL (4.0-10.0)
[2021-10-01 06:33] LABS: BLOOD UREA NITROGEN 11 MG/DL (7-18); CALCIUM LEVEL 8.1 MG/DL (8.8-10.2); CARBON DIOXIDE LEVEL 27 MEQ/L (21-32); CHLORIDE LEVEL 108 MEQ/L (98-107); CREATININE FOR GFR 0.43 MG/DL (0.55-1.30); GLOMERULAR FILTRATION RATE > 60.0 (>45); GLUCOSE, FASTING 91 MG/DL (70-100); MAGNESIUM LEVEL 1.9 MG/DL (1.8-2.4); POTASSIUM SERUM 3.9 MEQ/L (3.5-5.1); SODIUM LEVEL 141 MEQ/L (136-145)
[2021-10-01] MEDS: SENNA 8.6 MG TAB (SENOKOT) PO SCH ×2 (09:14→21:00)
[2021-10-01] MEDS: BACLOFEN 10 MG TAB PO SCH ×4 (09:14→21:03)
[2021-10-01] MEDS: HEPARIN DRIP 25,000 UNITS in IV 1 EA IV SCH (09:14)
[2021-10-01] MEDS: DULoxetine 30MG CAPSULE (CYMBALTA) PO SCH (09:14)
[2021-10-01] MEDS: GABAPENTIN 300 MG CAP PO SCH ×3 (09:14→21:03)
[2021-10-01] MEDS: DOCUSATE SODIUM 100MG CAPSULE PO SCH ×2 (09:15→21:01)
[2021-10-01] MEDS: SUCRALFATE SUSP 1GM/10ML UD PO SCH ×4 (09:15→21:01)
[2021-10-01 15:44] VITALS: BP 132/70
[2021-10-01] MEDS ORDERED: REMDESIVIR 200 MG in NS 250 ML IV ONE (18:00)
[2021-10-01 20:00] VITALS: BP 131/58
[2021-10-01] MEDS ORDERED: SODIUM CHLORIDE 0.9% INJ 10 ML SYR IV ONE (20:00)
[2021-10-01] MEDS: APIXABAN 5 MG TAB (ELIQUIS) PO SCH (21:01)
[2021-10-01] MEDS: PANTOPRAZOLE 40MG TAB (PROTONIX) PO SCH (21:04)
[2021-10-01] MEDS: SIPONIMOD 2 MG PO SCH (21:05)
[2021-10-02 04:00] VITALS: BP 121/70
[2021-10-02 06:34] LABS: HEMATOCRIT 33.4 % (36.0-47.0); HEMOGLOBIN 11.2 g/dl (12.0-15.5); MEAN CORPUSCULAR HGB CONC 33.5 g/dl (32.0-36.5); MEAN CORPUSCULAR VOLUME 92.5 fl (80.0-96.0); PLATELET COUNT, AUTOMATED 414 10^3/uL (150-450); RED BLOOD COUNT 3.61 10^6/uL (4.00-5.40)
[2021-10-02 06:59] LABS: ALBUMIN 2.4 GM/DL (3.2-5.2); ALT/SGPT 41 U/L (12-78); BILIRUBIN,DIRECT < 0.1 MG/DL (0.0-0.2); BILIRUBIN,TOTAL 0.2 MG/DL (0.2-1.0); BLOOD UREA NITROGEN 12 MG/DL (7-18); CALCIUM LEVEL 8.3 MG/DL (8.8-10.2); CARBON DIOXIDE LEVEL 26 MEQ/L (21-32); CHLORIDE LEVEL 107 MEQ/L (98-107); CREATININE FOR GFR 0.42 MG/DL (0.55-1.30); GLOMERULAR FILTRATION RATE > 60.0 (>45); GLUCOSE, FASTING 100 MG/DL (70-100); POTASSIUM SERUM 4.6 MEQ/L (3.5-5.1); SODIUM LEVEL 139 MEQ/L (136-145); TOTAL PROTEIN 5.1 GM/DL (6.4-8.2)
[2021-10-02] MEDS: ONDANSETRON 4MG/2ML VIAL IV PRN (07:56)
[2021-10-02] MEDS: SUCRALFATE SUSP 1GM/10ML UD PO SCH ×5 (07:59→21:03)
[2021-10-02] MEDS: BACLOFEN 10 MG TAB PO SCH ×4 (08:52→21:05)
[2021-10-02] MEDS: GABAPENTIN 300 MG CAP PO SCH ×3 (08:52→21:04)
[2021-10-02] MEDS: DOCUSATE SODIUM 100MG CAPSULE PO SCH ×2 (08:52→21:03)
[2021-10-02] MEDS: SENNA 8.6 MG TAB (SENOKOT) PO SCH ×2 (08:52→21:04)
[2021-10-02] MEDS: DULoxetine 30MG CAPSULE (CYMBALTA) PO SCH (08:52)
[2021-10-02] MEDS: APIXABAN 5 MG TAB (ELIQUIS) PO SCH ×2 (08:53→21:04)
[2021-10-02] MEDS ORDERED: PROMETHAZINE 25 MG TAB PO ONE (13:00)
[2021-10-02] MEDS: REMDESIVIR 100 MG in NS 250 ML IV SCH (17:43)
[2021-10-02] MEDS: SODIUM CHLORIDE 0.9% INJ 10 ML SYR IV SCH (19:00)
[2021-10-02] MEDS: PANTOPRAZOLE 40MG TAB (PROTONIX) PO SCH (21:05)
[2021-10-02] MEDS: SIPONIMOD 2 MG PO SCH (21:06)
[2021-10-03 04:00] VITALS: BP 122/75
[2021-10-03 06:12] LABS: HEMATOCRIT 35.4 % (36.0-47.0); HEMOGLOBIN 11.5 g/dl (12.0-15.5); MEAN CORPUSCULAR HEMOGLOBIN 30.3 pg (27.0-33.0); MEAN CORPUSCULAR HGB CONC 32.5 g/dl (32.0-36.5); MEAN CORPUSCULAR VOLUME 93.2 fl (80.0-96.0); PLATELET COUNT, AUTOMATED 488 10^3/uL (150-450); WHITE BLOOD COUNT 7.3 10^3/uL (4.0-10.0)
[2021-10-03 06:29] LABS: BLOOD UREA NITROGEN 15 MG/DL (7-18); CALCIUM LEVEL 8.4 MG/DL (8.8-10.2); CARBON DIOXIDE LEVEL 27 MEQ/L (21-32); CHLORIDE LEVEL 107 MEQ/L (98-107); CREATININE FOR GFR 0.47 MG/DL (0.55-1.30); GLOMERULAR FILTRATION RATE > 60.0 (>45); GLUCOSE, FASTING 94 MG/DL (70-100); POTASSIUM SERUM 4.3 MEQ/L (3.5-5.1); SODIUM LEVEL 139 MEQ/L (136-145)
[2021-10-03] MEDS: BACLOFEN 10 MG TAB PO SCH ×4 (08:33→20:36)
[2021-10-03] MEDS: SUCRALFATE SUSP 1GM/10ML UD PO SCH ×4 (08:33→20:36)
[2021-10-03] MEDS: DULoxetine 30MG CAPSULE (CYMBALTA) PO SCH (08:33)
[2021-10-03] MEDS: SENNA 8.6 MG TAB (SENOKOT) PO SCH ×2 (08:34→20:36)
[2021-10-03] MEDS: GABAPENTIN 300 MG CAP PO SCH ×3 (08:34→20:36)
[2021-10-03] MEDS: APIXABAN 5 MG TAB (ELIQUIS) PO SCH ×2 (08:34→20:36)
[2021-10-03] MEDS: DOCUSATE SODIUM 100MG CAPSULE PO SCH ×2 (08:35→20:35)
[2021-10-03] MEDS: REMDESIVIR 100 MG in NS 250 ML IV SCH (18:31)
[2021-10-03] MEDS: SODIUM CHLORIDE 0.9% INJ 10 ML SYR IV SCH (19:45)
[2021-10-03] MEDS: PANTOPRAZOLE 40MG TAB (PROTONIX) PO SCH (20:35)
[2021-10-03] MEDS: SIPONIMOD 2 MG PO SCH (20:37)
[2021-10-04 04:00] VITALS: BP 118/55
[2021-10-04 08:20] LABS: HEMATOCRIT 37.2 % (36.0-47.0); HEMOGLOBIN 12.2 g/dl (12.0-15.5); MEAN CORPUSCULAR HEMOGLOBIN 30.7 pg (27.0-33.0); MEAN CORPUSCULAR HGB CONC 32.8 g/dl (32.0-36.5); MEAN CORPUSCULAR VOLUME 93.5 fl (80.0-96.0); PLATELET COUNT, AUTOMATED 565 10^3/uL (150-450); RED BLOOD COUNT 3.98 10^6/uL (4.00-5.40); WHITE BLOOD COUNT 7.2 10^3/uL (4.0-10.0)
[2021-10-04] MEDS: SUCRALFATE SUSP 1GM/10ML UD PO SCH ×4 (08:33→21:00)
[2021-10-04] MEDS: APIXABAN 5 MG TAB (ELIQUIS) PO SCH ×2 (08:34→21:09)
[2021-10-04] MEDS: DOCUSATE SODIUM 100MG CAPSULE PO SCH ×2 (08:34→20:57)
[2021-10-04] MEDS: BACLOFEN 10 MG TAB PO SCH ×4 (08:34→21:09)
[2021-10-04] MEDS: SENNA 8.6 MG TAB (SENOKOT) PO SCH ×2 (08:34→20:57)
[2021-10-04] MEDS: DULoxetine 30MG CAPSULE (CYMBALTA) PO SCH (08:34)
[2021-10-04] MEDS: GABAPENTIN 300 MG CAP PO SCH ×3 (08:34→21:09)
[2021-10-04 09:06] LABS: BLOOD UREA NITROGEN 14 MG/DL (7-18); CALCIUM LEVEL 8.7 MG/DL (8.8-10.2); CARBON DIOXIDE LEVEL 28 MEQ/L (21-32); CHLORIDE LEVEL 105 MEQ/L (98-107); CREATININE FOR GFR 0.41 MG/DL (0.55-1.30); GLOMERULAR FILTRATION RATE > 60.0 (>45); GLUCOSE, FASTING 92 MG/DL (70-100); POTASSIUM SERUM 4.7 MEQ/L (3.5-5.1); SODIUM LEVEL 139 MEQ/L (136-145)
[2021-10-04] MEDS: SIPONIMOD 2 MG PO SCH (21:08)
[2021-10-04] MEDS: PANTOPRAZOLE 40MG TAB (PROTONIX) PO SCH (21:09)
[2021-10-05 04:41] VITALS: BP 112/57
[2021-10-05] MEDS: SUCRALFATE SUSP 1GM/10ML UD PO SCH ×5 (04:50→21:35)
[2021-10-05] MEDS: ACETAMINOPHEN TAB 650MG DOSE (2X325MG) PO PRN (07:32)
[2021-10-05 07:49] LABS: HEMATOCRIT 37.3 % (36.0-47.0); HEMOGLOBIN 12.4 g/dl (12.0-15.5); MEAN CORPUSCULAR HEMOGLOBIN 30.8 pg (27.0-33.0); MEAN CORPUSCULAR HGB CONC 33.2 g/dl (32.0-36.5); MEAN CORPUSCULAR VOLUME 92.6 fl (80.0-96.0); PLATELET COUNT, AUTOMATED 564 10^3/uL (150-450); RED BLOOD COUNT 4.03 10^6/uL (4.00-5.40); WHITE BLOOD COUNT 6.4 10^3/uL (4.0-10.0)
[2021-10-05 08:10] LABS: BLOOD UREA NITROGEN 12 MG/DL (7-18); CALCIUM LEVEL 8.5 MG/DL (8.8-10.2); CARBON DIOXIDE LEVEL 30 MEQ/L (21-32); CHLORIDE LEVEL 107 MEQ/L (98-107); CREATININE FOR GFR 0.42 MG/DL (0.55-1.30); GLOMERULAR FILTRATION RATE > 60.0 (>45); GLUCOSE, FASTING 98 MG/DL (70-100); MAGNESIUM LEVEL 2.1 MG/DL (1.8-2.4); POTASSIUM SERUM 4.1 MEQ/L (3.5-5.1); SODIUM LEVEL 140 MEQ/L (136-145)
[2021-10-05] MEDS: GABAPENTIN 300 MG CAP PO SCH ×3 (08:25→21:34)
[2021-10-05] MEDS: DULoxetine 30MG CAPSULE (CYMBALTA) PO SCH (08:25)
[2021-10-05] MEDS: BACLOFEN 10 MG TAB PO SCH ×4 (08:25→21:34)
[2021-10-05] MEDS: DOCUSATE SODIUM 100MG CAPSULE PO SCH ×2 (08:26→21:00)
[2021-10-05] MEDS: APIXABAN 5 MG TAB (ELIQUIS) PO SCH ×2 (08:26→21:34)
[2021-10-05] MEDS: SENNA 8.6 MG TAB (SENOKOT) PO SCH ×3 (08:26→21:33)
[2021-10-05] MEDS: PANTOPRAZOLE 40MG TAB (PROTONIX) PO SCH (21:35)
[2021-10-05] MEDS: SIPONIMOD 2 MG PO SCH (21:36)
[2021-10-06 04:00] VITALS: BP 114/56
[2021-10-06 05:59] LABS: HEMATOCRIT 36.3 % (36.0-47.0); HEMOGLOBIN 11.8 g/dl (12.0-15.5); MEAN CORPUSCULAR HEMOGLOBIN 30.6 pg (27.0-33.0); MEAN CORPUSCULAR HGB CONC 32.5 g/dl (32.0-36.5); PLATELET COUNT, AUTOMATED 558 10^3/uL (150-450); RED BLOOD COUNT 3.86 10^6/uL (4.00-5.40); WHITE BLOOD COUNT 5.8 10^3/uL (4.0-10.0)
[2021-10-06 06:21] LABS: BLOOD UREA NITROGEN 16 MG/DL (7-18); CALCIUM LEVEL 8.6 MG/DL (8.8-10.2); CARBON DIOXIDE LEVEL 29 MEQ/L (21-32); CHLORIDE LEVEL 108 MEQ/L (98-107); CREATININE FOR GFR 0.46 MG/DL (0.55-1.30); GLOMERULAR FILTRATION RATE > 60.0 (>45); GLUCOSE, FASTING 105 MG/DL (70-100); MAGNESIUM LEVEL 2.2 MG/DL (1.8-2.4); POTASSIUM SERUM 4.4 MEQ/L (3.5-5.1); SODIUM LEVEL 143 MEQ/L (136-145)
[2021-10-06 08:00] VITALS: BP 108/53
[2021-10-06] MEDS: SUCRALFATE SUSP 1GM/10ML UD PO SCH ×4 (08:09→20:37)
[2021-10-06] MEDS: DOCUSATE SODIUM 100MG CAPSULE PO SCH ×2 (08:31→20:38)
[2021-10-06] MEDS: SENNA 8.6 MG TAB (SENOKOT) PO SCH ×2 (08:32→20:39)
[2021-10-06] MEDS: BACLOFEN 10 MG TAB PO SCH ×4 (08:54→20:39)
[2021-10-06] MEDS: DULoxetine 30MG CAPSULE (CYMBALTA) PO SCH (08:55)
[2021-10-06] MEDS: APIXABAN 5 MG TAB (ELIQUIS) PO SCH ×2 (08:55→20:38)
[2021-10-06] MEDS: GABAPENTIN 300 MG CAP PO SCH ×3 (08:55→20:38)
[2021-10-06] MEDS: ACETAMINOPHEN TAB 650MG DOSE (2X325MG) PO PRN (20:38)
[2021-10-06] MEDS: PANTOPRAZOLE 40MG TAB (PROTONIX) PO SCH (20:39)
[2021-10-06] MEDS: SIPONIMOD 2 MG PO SCH (21:10)
[2021-10-07 04:00] VITALS: BP 122/56
[2021-10-07] MEDS: DULoxetine 30MG CAPSULE (CYMBALTA) PO SCH (08:46)
[2021-10-07] MEDS: BACLOFEN 10 MG TAB PO SCH ×4 (08:46→21:16)
[2021-10-07] MEDS: SUCRALFATE SUSP 1GM/10ML UD PO SCH ×4 (08:46→21:15)
[2021-10-07] MEDS: GABAPENTIN 300 MG CAP PO SCH ×3 (08:46→21:15)
[2021-10-07] MEDS: APIXABAN 5 MG TAB (ELIQUIS) PO SCH ×2 (08:46→21:15)
[2021-10-07] MEDS: SENNA 8.6 MG TAB (SENOKOT) PO SCH ×2 (08:47→21:00)
[2021-10-07] MEDS: DOCUSATE SODIUM 100MG CAPSULE PO SCH ×2 (08:56→21:15)
[2021-10-07] MEDS: PANTOPRAZOLE 40MG TAB (PROTONIX) PO SCH (21:15)
[2021-10-07] MEDS: SIPONIMOD 2 MG PO SCH (21:16)
[2021-10-07] MEDS: ACETAMINOPHEN TAB 650MG DOSE (2X325MG) PO PRN (21:17)
[2021-10-08 04:00] VITALS: BP 103/51
[2021-10-08] MEDS: DULoxetine 30MG CAPSULE (CYMBALTA) PO SCH (08:56)
[2021-10-08] MEDS: GABAPENTIN 300 MG CAP PO SCH ×3 (08:56→20:33)
[2021-10-08] MEDS: SUCRALFATE SUSP 1GM/10ML UD PO SCH ×4 (08:56→20:32)
[2021-10-08] MEDS: DOCUSATE SODIUM 100MG CAPSULE PO SCH ×2 (08:56→20:32)
[2021-10-08] MEDS: SENNA 8.6 MG TAB (SENOKOT) PO SCH ×2 (08:57→20:33)
[2021-10-08] MEDS: APIXABAN 5 MG TAB (ELIQUIS) PO SCH ×2 (08:57→20:32)
[2021-10-08] MEDS: BACLOFEN 10 MG TAB PO SCH ×4 (08:57→20:32)
[2021-10-08] MEDS: PANTOPRAZOLE 40MG TAB (PROTONIX) PO SCH (20:32)
[2021-10-08] MEDS: SIPONIMOD 2 MG PO SCH (20:33)
[2021-10-08] MEDS: ACETAMINOPHEN TAB 650MG DOSE (2X325MG) PO PRN (23:30)
[2021-10-09 04:00] VITALS: BP 116/83
[2021-10-09] MEDS: SUCRALFATE SUSP 1GM/10ML UD PO SCH ×4 (07:30→20:24)
[2021-10-09 08:39] LABS: BASO % 0.6 % (0.0-1.0); EOS # 0.1 10^3/uL (0.0-0.5); EOS % 1.7 % (0.0-3.0); HEMATOCRIT 38.6 % (36.0-47.0); HEMOGLOBIN 12.5 g/dl (12.0-15.5); LYMPH # 0.3 10^3/uL (1.5-5.0); MEAN CORPUSCULAR HEMOGLOBIN 30.6 pg (27.0-33.0); MEAN CORPUSCULAR HGB CONC 32.4 g/dl (32.0-36.5); MEAN CORPUSCULAR VOLUME 94.4 fl (80.0-96.0); MONO # 0.8 10^3/uL (0.0-0.8); MONO % 12.5 % (2.0-8.0); NEUTROPHILS # 5.2 10^3/uL (1.5-8.5); NEUTROPHILS % 80.4 % (36.0-66.0); PLATELET COUNT, AUTOMATED 594 10^3/uL (150-450); RED BLOOD COUNT 4.09 10^6/uL (4.00-5.40); WHITE BLOOD COUNT 6.5 10^3/uL (4.0-10.0)
[2021-10-09] MEDS: BACLOFEN 10 MG TAB PO SCH ×4 (08:50→20:24)
[2021-10-09] MEDS: GABAPENTIN 300 MG CAP PO SCH ×3 (08:50→20:24)
[2021-10-09] MEDS: APIXABAN 5 MG TAB (ELIQUIS) PO SCH ×2 (08:51→20:24)
[2021-10-09] MEDS: DULoxetine 30MG CAPSULE (CYMBALTA) PO SCH (08:51)
[2021-10-09] MEDS: DOCUSATE SODIUM 100MG CAPSULE PO SCH ×2 (09:00→20:24)
[2021-10-09] MEDS: SENNA 8.6 MG TAB (SENOKOT) PO SCH ×2 (09:00→20:24)
[2021-10-09 09:04] LABS: BLOOD UREA NITROGEN 10 MG/DL (7-18); CALCIUM LEVEL 8.7 MG/DL (8.8-10.2); CARBON DIOXIDE LEVEL 27 MEQ/L (21-32); CHLORIDE LEVEL 109 MEQ/L (98-107); CREATININE FOR GFR 0.48 MG/DL (0.55-1.30); GLOMERULAR FILTRATION RATE > 60.0 (>45); GLUCOSE, FASTING 90 MG/DL (70-100); MAGNESIUM LEVEL 2.2 MG/DL (1.8-2.4); POTASSIUM SERUM 4.4 MEQ/L (3.5-5.1); SODIUM LEVEL 142 MEQ/L (136-145)
[2021-10-09] MEDS: PANTOPRAZOLE 40MG TAB (PROTONIX) PO SCH (20:25)
[2021-10-09] MEDS: SIPONIMOD 2 MG PO SCH (20:27)
[2021-10-09] MEDS: ACETAMINOPHEN TAB 650MG DOSE (2X325MG) PO PRN (20:42)
[2021-10-10 04:56] VITALS: BP 126/59
[2021-10-10 06:04] LABS: BASO % 0.8 % (0.0-1.0); EOS # 0.2 10^3/uL (0.0-0.5); EOS % 3.7 % (0.0-3.0); HEMATOCRIT 37.5 % (36.0-47.0); HEMOGLOBIN 12.2 g/dl (12.0-15.5); LYMPH # 0.2 10^3/uL (1.5-5.0); LYMPH % 4.7 % (24.0-44.0); MEAN CORPUSCULAR HEMOGLOBIN 30.7 pg (27.0-33.0); MEAN CORPUSCULAR HGB CONC 32.5 g/dl (32.0-36.5); MEAN CORPUSCULAR VOLUME 94.5 fl (80.0-96.0); MONO # 0.8 10^3/uL (0.0-0.8); MONO % 15.3 % (2.0-8.0); NEUTROPHILS # 3.7 10^3/uL (1.5-8.5); NEUTROPHILS % 74.9 % (36.0-66.0); PLATELET COUNT, AUTOMATED 533 10^3/uL (150-450); RED BLOOD COUNT 3.97 10^6/uL (4.00-5.40); WHITE BLOOD COUNT 4.9 10^3/uL (4.0-10.0)
[2021-10-10 06:30] LABS: BLOOD UREA NITROGEN 10 MG/DL (7-18); CARBON DIOXIDE LEVEL 29 MEQ/L (21-32); CHLORIDE LEVEL 108 MEQ/L (98-107); CREATININE FOR GFR 0.54 MG/DL (0.55-1.30); GLOMERULAR FILTRATION RATE > 60.0 (>45); GLUCOSE, FASTING 90 MG/DL (70-100); MAGNESIUM LEVEL 2.2 MG/DL (1.8-2.4); SODIUM LEVEL 141 MEQ/L (136-145)
[2021-10-10] MEDS: SUCRALFATE SUSP 1GM/10ML UD PO SCH ×4 (07:30→21:52)
[2021-10-10] MEDS: APIXABAN 5 MG TAB (ELIQUIS) PO SCH ×2 (08:50→21:52)
[2021-10-10] MEDS: DULoxetine 30MG CAPSULE (CYMBALTA) PO SCH (08:50)
[2021-10-10] MEDS: GABAPENTIN 300 MG CAP PO SCH ×3 (08:50→21:52)
[2021-10-10] MEDS: BACLOFEN 10 MG TAB PO SCH ×4 (08:50→21:53)
[2021-10-10] MEDS: SENNA 8.6 MG TAB (SENOKOT) PO SCH ×2 (08:51→21:52)
[2021-10-10] MEDS: DOCUSATE SODIUM 100MG CAPSULE PO SCH ×2 (08:51→21:53)
[2021-10-10] MEDS: ACETAMINOPHEN TAB 650MG DOSE (2X325MG) PO PRN (21:52)
[2021-10-10] MEDS: PANTOPRAZOLE 40MG TAB (PROTONIX) PO SCH (21:52)
[2021-10-10] MEDS: SIPONIMOD 2 MG PO SCH (21:53)
[2021-10-11 04:00] VITALS: BP 118/56
[2021-10-11 06:18] LABS: BASO % 0.7 % (0.0-1.0); EOS # 0.2 10^3/uL (0.0-0.5); EOS % 3.6 % (0.0-3.0); HEMATOCRIT 38.7 % (36.0-47.0); HEMOGLOBIN 12.5 g/dl (12.0-15.5); LYMPH # 0.3 10^3/uL (1.5-5.0); MEAN CORPUSCULAR HEMOGLOBIN 30.7 pg (27.0-33.0); MEAN CORPUSCULAR HGB CONC 32.3 g/dl (32.0-36.5); MEAN CORPUSCULAR VOLUME 95.1 fl (80.0-96.0); MONO # 0.7 10^3/uL (0.0-0.8); MONO % 12.3 % (2.0-8.0); NEUTROPHILS # 4.2 10^3/uL (1.5-8.5); NEUTROPHILS % 77.8 % (36.0-66.0); PLATELET COUNT, AUTOMATED 479 10^3/uL (150-450); RED BLOOD COUNT 4.07 10^6/uL (4.00-5.40); WHITE BLOOD COUNT 5.4 10^3/uL (4.0-10.0)
[2021-10-11 06:40] LABS: BLOOD UREA NITROGEN 13 MG/DL (7-18); CALCIUM LEVEL 9.1 MG/DL (8.8-10.2); CARBON DIOXIDE LEVEL 29 MEQ/L (21-32); CHLORIDE LEVEL 110 MEQ/L (98-107); GLOMERULAR FILTRATION RATE > 60.0 (>45); GLUCOSE, FASTING 96 MG/DL (70-100); MAGNESIUM LEVEL 2.1 MG/DL (1.8-2.4); POTASSIUM SERUM 3.9 MEQ/L (3.5-5.1); SODIUM LEVEL 142 MEQ/L (136-145)
[2021-10-11] MEDS: SUCRALFATE SUSP 1GM/10ML UD PO SCH ×4 (07:30→20:36)
[2021-10-11] MEDS: APIXABAN 5 MG TAB (ELIQUIS) PO SCH ×2 (08:36→20:28)
[2021-10-11] MEDS: DOCUSATE SODIUM 100MG CAPSULE PO SCH ×2 (08:36→20:28)
[2021-10-11] MEDS: GABAPENTIN 300 MG CAP PO SCH ×3 (08:36→20:28)
[2021-10-11] MEDS: DULoxetine 30MG CAPSULE (CYMBALTA) PO SCH (08:36)
[2021-10-11] MEDS: SENNA 8.6 MG TAB (SENOKOT) PO SCH ×2 (08:36→20:28)
[2021-10-11] MEDS: BACLOFEN 10 MG TAB PO SCH ×5 (08:36→20:35)
[2021-10-11] MEDS: PANTOPRAZOLE 40MG TAB (PROTONIX) PO SCH (20:28)
[2021-10-11] MEDS: SIPONIMOD 2 MG PO SCH (20:36)
[2021-10-12 04:00] VITALS: BP 126/57
[2021-10-12 06:56] LABS: BASO % 0.5 % (0.0-1.0); EOS # 0.1 10^3/uL (0.0-0.5); EOS % 2.5 % (0.0-3.0); HEMATOCRIT 36.9 % (36.0-47.0); HEMOGLOBIN 11.9 g/dl (12.0-15.5); LYMPH # 0.2 10^3/uL (1.5-5.0); LYMPH % 3.4 % (24.0-44.0); MEAN CORPUSCULAR HEMOGLOBIN 30.6 pg (27.0-33.0); MEAN CORPUSCULAR HGB CONC 32.2 g/dl (32.0-36.5); MEAN CORPUSCULAR VOLUME 94.9 fl (80.0-96.0); MONO # 0.8 10^3/uL (0.0-0.8); MONO % 13.4 % (2.0-8.0); NEUTROPHILS # 4.5 10^3/uL (1.5-8.5); NEUTROPHILS % 79.5 % (36.0-66.0); PLATELET COUNT, AUTOMATED 461 10^3/uL (150-450); RED BLOOD COUNT 3.89 10^6/uL (4.00-5.40); WHITE BLOOD COUNT 5.7 10^3/uL (4.0-10.0)
[2021-10-12 07:16] LABS: BLOOD UREA NITROGEN 15 MG/DL (7-18); CALCIUM LEVEL 8.8 MG/DL (8.8-10.2); CARBON DIOXIDE LEVEL 27 MEQ/L (21-32); CHLORIDE LEVEL 110 MEQ/L (98-107); CREATININE FOR GFR 0.47 MG/DL (0.55-1.30); GLOMERULAR FILTRATION RATE > 60.0 (>45); GLUCOSE, FASTING 92 MG/DL (70-100); POTASSIUM SERUM 3.7 MEQ/L (3.5-5.1); SODIUM LEVEL 142 MEQ/L (136-145)
[2021-10-12] MEDS: SUCRALFATE SUSP 1GM/10ML UD PO SCH ×6 (08:17→20:11)
[2021-10-12] MEDS: APIXABAN 5 MG TAB (ELIQUIS) PO SCH ×2 (08:17→20:12)
[2021-10-12] MEDS: DULoxetine 30MG CAPSULE (CYMBALTA) PO SCH (08:18)
[2021-10-12] MEDS: GABAPENTIN 300 MG CAP PO SCH ×3 (08:18→20:11)
[2021-10-12] MEDS: DOCUSATE SODIUM 100MG CAPSULE PO SCH ×2 (08:18→20:11)
[2021-10-12] MEDS: BACLOFEN 10 MG TAB PO SCH ×4 (08:19→20:11)
[2021-10-12] MEDS: SENNA 8.6 MG TAB (SENOKOT) PO SCH ×2 (08:20→20:12)
[2021-10-12 17:08] VITALS: BP 112/70
[2021-10-12] MEDS: PANTOPRAZOLE 40MG TAB (PROTONIX) PO SCH (20:12)
[2021-10-12] MEDS: SIPONIMOD 2 MG PO SCH (20:24)
[2021-10-13 06:10] VITALS: BP 115/56
[2021-10-13 06:13] LABS: BASO % 0.8 % (0.0-1.0); EOS # 0.2 10^3/uL (0.0-0.5); EOS % 3.2 % (0.0-3.0); HEMATOCRIT 34.5 % (36.0-47.0); HEMOGLOBIN 11.3 g/dl (12.0-15.5); LYMPH # 0.2 10^3/uL (1.5-5.0); LYMPH % 4.2 % (24.0-44.0); MEAN CORPUSCULAR HGB CONC 32.8 g/dl (32.0-36.5); MEAN CORPUSCULAR VOLUME 94.5 fl (80.0-96.0); MONO # 0.6 10^3/uL (0.0-0.8); MONO % 12.1 % (2.0-8.0); NEUTROPHILS # 3.7 10^3/uL (1.5-8.5); NEUTROPHILS % 79.1 % (36.0-66.0); PLATELET COUNT, AUTOMATED 391 10^3/uL (150-450); RED BLOOD COUNT 3.65 10^6/uL (4.00-5.40); WHITE BLOOD COUNT 4.7 10^3/uL (4.0-10.0)
[2021-10-13 06:47] LABS: BLOOD UREA NITROGEN 10 MG/DL (7-18); CALCIUM LEVEL 8.7 MG/DL (8.8-10.2); CARBON DIOXIDE LEVEL 29 MEQ/L (21-32); CHLORIDE LEVEL 109 MEQ/L (98-107); CREATININE FOR GFR 0.59 MG/DL (0.55-1.30); GLOMERULAR FILTRATION RATE > 60.0 (>45); GLUCOSE, FASTING 90 MG/DL (70-100); MAGNESIUM LEVEL 2.1 MG/DL (1.8-2.4); SODIUM LEVEL 141 MEQ/L (136-145)
[2021-10-13] MEDS: SUCRALFATE SUSP 1GM/10ML UD PO SCH ×4 (07:30→20:34)
[2021-10-13] MEDS: APIXABAN 5 MG TAB (ELIQUIS) PO SCH ×2 (08:36→20:35)
[2021-10-13] MEDS: SENNA 8.6 MG TAB (SENOKOT) PO SCH ×2 (08:37→20:34)
[2021-10-13] MEDS: DOCUSATE SODIUM 100MG CAPSULE PO SCH ×2 (08:38→20:35)
[2021-10-13] MEDS: DULoxetine 30MG CAPSULE (CYMBALTA) PO SCH (08:38)
[2021-10-13] MEDS: GABAPENTIN 300 MG CAP PO SCH ×3 (08:39→20:35)
[2021-10-13] MEDS: BACLOFEN 10 MG TAB PO SCH ×4 (08:39→20:35)
[2021-10-13] MEDS: PANTOPRAZOLE 40MG TAB (PROTONIX) PO SCH (20:35)
[2021-10-13] MEDS: SIPONIMOD 2 MG PO SCH (20:36)
[2021-10-14 04:59] VITALS: BP 116/64
[2021-10-14 05:14] LABS: BASO % 0.6 % (0.0-1.0); EOS # 0.2 10^3/uL (0.0-0.5); EOS % 4.1 % (0.0-3.0); HEMATOCRIT 35.7 % (36.0-47.0); HEMOGLOBIN 11.6 g/dl (12.0-15.5); LYMPH # 0.2 10^3/uL (1.5-5.0); LYMPH % 3.7 % (24.0-44.0); MEAN CORPUSCULAR HEMOGLOBIN 30.7 pg (27.0-33.0); MEAN CORPUSCULAR HGB CONC 32.5 g/dl (32.0-36.5); MEAN CORPUSCULAR VOLUME 94.4 fl (80.0-96.0); MONO # 0.6 10^3/uL (0.0-0.8); MONO % 12.2 % (2.0-8.0); NEUTROPHILS # 4.1 10^3/uL (1.5-8.5); PLATELET COUNT, AUTOMATED 369 10^3/uL (150-450); RED BLOOD COUNT 3.78 10^6/uL (4.00-5.40); WHITE BLOOD COUNT 5.2 10^3/uL (4.0-10.0)
[2021-10-14 05:36] LABS: BLOOD UREA NITROGEN 11 MG/DL (7-18); CALCIUM LEVEL 8.9 MG/DL (8.8-10.2); CARBON DIOXIDE LEVEL 30 MEQ/L (21-32); CHLORIDE LEVEL 109 MEQ/L (98-107); CREATININE FOR GFR 0.46 MG/DL (0.55-1.30); GLOMERULAR FILTRATION RATE > 60.0 (>45); GLUCOSE, FASTING 92 MG/DL (70-100); MAGNESIUM LEVEL 2.1 MG/DL (1.8-2.4); SODIUM LEVEL 143 MEQ/L (136-145)
[2021-10-14] MEDS: DOCUSATE SODIUM 100MG CAPSULE PO SCH ×2 (08:31→20:34)
[2021-10-14] MEDS: SUCRALFATE SUSP 1GM/10ML UD PO SCH ×4 (08:31→20:33)
[2021-10-14] MEDS: SENNA 8.6 MG TAB (SENOKOT) PO SCH ×2 (08:31→20:33)
[2021-10-14] MEDS: GABAPENTIN 300 MG CAP PO SCH ×3 (08:31→20:34)
[2021-10-14] MEDS: DULoxetine 30MG CAPSULE (CYMBALTA) PO SCH (08:31)
[2021-10-14] MEDS: APIXABAN 5 MG TAB (ELIQUIS) PO SCH ×2 (08:31→20:33)
[2021-10-14] MEDS: BACLOFEN 10 MG TAB PO SCH ×4 (08:32→20:36)
[2021-10-14] MEDS: ACETAMINOPHEN TAB 650MG DOSE (2X325MG) PO PRN ×2 (15:16→22:29)
[2021-10-14] MEDS: PANTOPRAZOLE 40MG TAB (PROTONIX) PO SCH (20:33)
[2021-10-14] MEDS: SIPONIMOD 2 MG PO SCH (20:34)
[2021-10-15 06:00] VITALS: BP 108/69
[2021-10-15 06:47] LABS: BASO % 0.8 % (0.0-1.0); EOS # 0.2 10^3/uL (0.0-0.5); EOS % 5.6 % (0.0-3.0); HEMATOCRIT 36.7 % (36.0-47.0); HEMOGLOBIN 12.2 g/dl (12.0-15.5); LYMPH # 0.2 10^3/uL (1.5-5.0); LYMPH % 4.8 % (24.0-44.0); MEAN CORPUSCULAR HGB CONC 33.2 g/dl (32.0-36.5); MEAN CORPUSCULAR VOLUME 93.4 fl (80.0-96.0); MONO # 0.5 10^3/uL (0.0-0.8); MONO % 14.1 % (2.0-8.0); NEUTROPHILS # 2.6 10^3/uL (1.5-8.5); NEUTROPHILS % 74.1 % (36.0-66.0); PLATELET COUNT, AUTOMATED 344 10^3/uL (150-450); RED BLOOD COUNT 3.93 10^6/uL (4.00-5.40); WHITE BLOOD COUNT 3.5 10^3/uL (4.0-10.0)
[2021-10-15 07:02] LABS: BLOOD UREA NITROGEN 12 MG/DL (7-18); CALCIUM LEVEL 8.9 MG/DL (8.8-10.2); CARBON DIOXIDE LEVEL 30 MEQ/L (21-32); CHLORIDE LEVEL 110 MEQ/L (98-107); CREATININE FOR GFR 0.46 MG/DL (0.55-1.30); GLOMERULAR FILTRATION RATE > 60.0 (>45); GLUCOSE, FASTING 85 MG/DL (70-100); MAGNESIUM LEVEL 2.2 MG/DL (1.8-2.4); POTASSIUM SERUM 3.9 MEQ/L (3.5-5.1); SODIUM LEVEL 143 MEQ/L (136-145)
[2021-10-15 08:20] VITALS: BP 128/74
[2021-10-15] MEDS: SENNA 8.6 MG TAB (SENOKOT) PO SCH ×2 (08:20→20:36)
[2021-10-15] MEDS: SUCRALFATE SUSP 1GM/10ML UD PO SCH ×4 (08:20→20:35)
[2021-10-15] MEDS: GABAPENTIN 300 MG CAP PO SCH ×3 (08:20→20:36)
[2021-10-15] MEDS: DOCUSATE SODIUM 100MG CAPSULE PO SCH ×2 (08:20→20:35)
[2021-10-15] MEDS: APIXABAN 5 MG TAB (ELIQUIS) PO SCH ×2 (08:20→20:35)
[2021-10-15] MEDS: DULoxetine 30MG CAPSULE (CYMBALTA) PO SCH (08:21)
[2021-10-15] MEDS: BACLOFEN 10 MG TAB PO SCH ×4 (08:21→20:36)
[2021-10-15 16:38] VITALS: BP 124/75
[2021-10-15] MEDS: PANTOPRAZOLE 40MG TAB (PROTONIX) PO SCH (20:35)
[2021-10-15] MEDS: SIPONIMOD 2 MG PO SCH (20:35)
[2021-10-15] MEDS: ACETAMINOPHEN TAB 650MG DOSE (2X325MG) PO PRN (22:04)
[2021-10-16 06:00] VITALS: BP 124/66
[2021-10-16] MEDS: SUCRALFATE SUSP 1GM/10ML UD PO SCH ×4 (09:53→21:43)
[2021-10-16] MEDS: APIXABAN 5 MG TAB (ELIQUIS) PO SCH ×2 (09:54→21:41)
[2021-10-16] MEDS: DOCUSATE SODIUM 100MG CAPSULE PO SCH ×2 (09:54→21:42)
[2021-10-16] MEDS: SENNA 8.6 MG TAB (SENOKOT) PO SCH ×2 (09:54→21:42)
[2021-10-16] MEDS: GABAPENTIN 300 MG CAP PO SCH ×3 (09:54→21:43)
[2021-10-16] MEDS: BACLOFEN 10 MG TAB PO SCH ×4 (09:54→21:42)
[2021-10-16] MEDS: DULoxetine 30MG CAPSULE (CYMBALTA) PO SCH (09:54)
[2021-10-16] MEDS: SIPONIMOD 2 MG PO SCH (21:41)
[2021-10-16] MEDS: PANTOPRAZOLE 40MG TAB (PROTONIX) PO SCH (21:42)
[2021-10-16] MEDS: ACETAMINOPHEN TAB 650MG DOSE (2X325MG) PO PRN (21:42)
[2021-10-17 05:59] VITALS: BP 121/66
[2021-10-17] MEDS: ACETAMINOPHEN TAB 650MG DOSE (2X325MG) PO PRN (08:57)
[2021-10-17] MEDS: SUCRALFATE SUSP 1GM/10ML UD PO SCH ×2 (08:57→12:21)
[2021-10-17] MEDS: DULoxetine 30MG CAPSULE (CYMBALTA) PO SCH (08:58)
[2021-10-17] MEDS: SENNA 8.6 MG TAB (SENOKOT) PO SCH (08:58)
[2021-10-17] MEDS: DOCUSATE SODIUM 100MG CAPSULE PO SCH (08:58)
[2021-10-17] MEDS: GABAPENTIN 300 MG CAP PO SCH (08:58)
[2021-10-17] MEDS: APIXABAN 5 MG TAB (ELIQUIS) PO SCH (08:58)
[2021-10-17] MEDS: BACLOFEN 10 MG TAB PO SCH ×2 (08:58→12:21)
[2021-10-17] MEDS ORDERED: MIRA1POW3 PO (10:35)
[2021-10-17] MEDS ORDERED: COLA100C5 PO (10:35)
[2021-10-17] MEDS ORDERED: SENN18TA PO (10:35)
[2021-10-17] MEDS ORDERED: PANT40TA29 PO (10:35)
[2021-10-17] MEDS ORDERED: SUCR1ORA PO (10:35)
[2021-10-17] MEDS ORDERED: ELIQ5TAB PO (10:35)
== END 2021-10-17 12:25 | DRG 175 ==
LOC: EDUNIT# 00:47 → M ED 00:47 → EDBD 00:47 → M ED INP 07:58 → ENRESERV 08:23 → M PCU 09:20 → M MS5PR 09-21 15:20 → M PCU 09-29 14:50 → M MSPAV 09-30 23:06 → M 4MAIN 10-01 15:40 → M MSPAV 10-12 17:00
PROVIDERS: ADMIT Internal Medicine; ATTEND Internal Medicine
PROC: 02HV33Z Insertion of Infusion Device into Superior Vena Cava, Percutaneous Approach (ICD-10-PCS; principal; 2021-09-20)
DX: I26.99 Other pulmonary embolism without acute cor pulmonale (principal); R57.8 Other shock; U07.1 COVID-19; J98.11 Atelectasis; I95.2 Hypotension due to drugs; G35 Multiple sclerosis; J01.90 Acute sinusitis, unspecified; Z79.899 Other long term (current) drug therapy; Z88.2 Allergy status to sulfonamides; F32.A Depression, unspecified; F41.9 Anxiety disorder, unspecified; Z90.79 Acquired absence of other genital organ(s); Z20.822 Contact with and (suspected) exposure to COVID-19; T42.8X5A Adverse effect of antiparkinsonism drugs and other central muscle-tone depressants, initial encounter; N31.9 Neuromuscular dysfunction of bladder, unspecified; H66.90 Otitis media, unspecified, unspecified ear; R09.02 Hypoxemia; Z66 Do not resuscitate; K21.9 Gastro-esophageal reflux disease without esophagitis

== ENCOUNTER → 2021-10-23 | Outpatient (REF) | payer MEDICARE, MEDICAID ==
[~2021-10-23] MED LIST changes: +ADVI200T PO; +BACL1TAB8 PO; +COLA100C5 PO; +DULO60CA35 PO; +ELIQ5TAB PO; +MIRA1POW3 PO; +PANT40TA29 PO; +PROP20TA PO; +SENN18TA PO; +SUCR1ORA PO
[2021-10-23 11:29] LABS: HEMOGLOBIN 13.3 g/dl (12.0-15.5); MEAN CORPUSCULAR HEMOGLOBIN 31.1 pg (27.0-33.0); MEAN CORPUSCULAR HGB CONC 32.4 g/dl (32.0-36.5); MEAN CORPUSCULAR VOLUME 95.8 fl (80.0-96.0); PLATELET COUNT, AUTOMATED 320 10^3/uL (150-450); RED BLOOD COUNT 4.28 10^6/uL (4.00-5.40); WHITE BLOOD COUNT 6.1 10^3/uL (4.0-10.0)
[2021-10-23 11:56] LABS: BLOOD UREA NITROGEN 9 MG/DL (7-18); CALCIUM LEVEL 9.3 MG/DL (8.8-10.2); CARBON DIOXIDE LEVEL 30 MEQ/L (21-32); CHLORIDE LEVEL 105 MEQ/L (98-107); GLOMERULAR FILTRATION RATE > 60.0 (>45); GLUCOSE, FASTING 99 MG/DL (70-100); POTASSIUM SERUM 3.7 MEQ/L (3.5-5.1); SODIUM LEVEL 142 MEQ/L (136-145)
== END ==
PROVIDERS: ATTEND Internal Medicine
DX: I26.99 Other pulmonary embolism without acute cor pulmonale (principal); Z79.899 Other long term (current) drug therapy

== ENCOUNTER → 2021-10-29 | Outpatient (REF) ==
[2021-10-29 18:20] LABS: APPEARANCE, URINE CLEAR (CLEAR); BACTERIA, URINE AUTO NEGATIVE (NEGATIVE); BILIRUBIN, URINE AUTO NEGATIVE (NEGATIVE); BLOOD, URINE BLOOD 1+ (NEGATIVE); COLOR, URINE STRAW (YELLOW); GLUCOSE, URINE (UA) AUTO NEGATIVE (NEGATIVE); KETONE, URINE AUTO NEGATIVE (NEGATIVE); LEUKOCYTE ESTERASE, URINE AUTO 1+ (NEGATIVE); MUCUS, URINE SMALL (NEGATIVE); NITRITE, URINE AUTO NEGATIVE (NEGATIVE); PROTEIN, URINE AUTO NEGATIVE (NEGATIVE); RBC, URINE AUTO 3 /HPF (0-3); SPECIFIC GRAVITY URINE AUTO 1.008 (1.002-1.035); SQUAMOUS EPITHELIAL CELL UR AU 0 /HPF (0-6); UROBILINOGEN, URINE AUTO 0.2 mg/dL (0.0-2.0); WBC, URINE AUTO 26 /HPF (0-3)
== END ==
PROVIDERS: ATTEND Internal Medicine
DX: N39.0 Urinary tract infection, site not specified (principal)

== ENCOUNTER → 2021-10-30 | Outpatient (REF) | payer MEDICARE ==
[2021-10-30 10:50] LABS: HEMATOCRIT 38.7 % (36.0-47.0); HEMOGLOBIN 12.5 g/dl (12.0-15.5); MEAN CORPUSCULAR HGB CONC 32.3 g/dl (32.0-36.5); PLATELET COUNT, AUTOMATED 324 10^3/uL (150-450); RED BLOOD COUNT 4.03 10^6/uL (4.00-5.40)
[2021-10-30 11:26] LABS: BLOOD UREA NITROGEN 8 MG/DL (7-18); CALCIUM LEVEL 9.3 MG/DL (8.8-10.2); CARBON DIOXIDE LEVEL 29 MEQ/L (21-32); CHLORIDE LEVEL 106 MEQ/L (98-107); CREATININE FOR GFR 0.45 MG/DL (0.55-1.30); GLOMERULAR FILTRATION RATE > 60.0 (>45); GLUCOSE, FASTING 109 MG/DL (70-100); POTASSIUM SERUM 3.8 MEQ/L (3.5-5.1); SODIUM LEVEL 143 MEQ/L (136-145)
== END ==
PROVIDERS: ATTEND Internal Medicine
DX: I26.99 Other pulmonary embolism without acute cor pulmonale (principal); Z79.899 Other long term (current) drug therapy

== ENCOUNTER → 2021-11-01 | Outpatient (REF) | payer MEDICARE ==
[2021-11-01 10:11] LABS: BASO % 0.9 % (0.0-1.0); EOS # 0.2 10^3/uL (0.0-0.5); EOS % 5.1 % (0.0-3.0); HEMATOCRIT 38.8 % (36.0-47.0); HEMOGLOBIN 12.4 g/dl (12.0-15.5); LYMPH # 0.1 10^3/uL (1.5-5.0); LYMPH % 3.2 % (24.0-44.0); MEAN CORPUSCULAR HEMOGLOBIN 30.7 pg (27.0-33.0); MONO # 0.5 10^3/uL (0.0-0.8); MONO % 12.4 % (2.0-8.0); NEUTROPHILS # 3.4 10^3/uL (1.5-8.5); NEUTROPHILS % 77.7 % (36.0-66.0); PLATELET COUNT, AUTOMATED 324 10^3/uL (150-450); RED BLOOD COUNT 4.04 10^6/uL (4.00-5.40); WHITE BLOOD COUNT 4.4 10^3/uL (4.0-10.0)
== END ==
PROVIDERS: ATTEND Internal Medicine
DX: G35 Multiple sclerosis (principal)

== ENCOUNTER → 2022-04-18 | Outpatient (REF) | payer MEDICARE, MEDICAID ==
[2022-04-18 12:20] LABS: BASO % 0.6 % (0.0-1.0); EOS # 0.1 10^3/uL (0.0-0.5); EOS % 2.2 % (0.0-3.0); HEMATOCRIT 38.8 % (36.0-47.0); HEMOGLOBIN 12.7 g/dl (12.0-15.5); LYMPH # 0.2 10^3/uL (1.5-5.0); LYMPH % 5.6 % (24.0-44.0); MEAN CORPUSCULAR HEMOGLOBIN 32.2 pg (27.0-33.0); MEAN CORPUSCULAR HGB CONC 32.7 g/dl (32.0-36.5); MEAN CORPUSCULAR VOLUME 98.2 fl (80.0-96.0); MONO # 0.4 10^3/uL (0.0-0.8); MONO % 13.4 % (2.0-8.0); NEUTROPHILS # 2.5 10^3/uL (1.5-8.5); NEUTROPHILS % 77.9 % (36.0-66.0); PLATELET COUNT, AUTOMATED 277 10^3/uL (150-450); RED BLOOD COUNT 3.95 10^6/uL (4.00-5.40); WHITE BLOOD COUNT 3.2 10^3/uL (4.0-10.0)
[2022-04-18 13:01] LABS: ALBUMIN 3.3 GM/DL (3.2-5.2); ALT/SGPT 39 U/L (12-78); BILIRUBIN,DIRECT < 0.1 MG/DL (0.0-0.2); BILIRUBIN,TOTAL 0.4 MG/DL (0.2-1.0); TOTAL PROTEIN 5.7 GM/DL (6.4-8.2)
[2022-04-18 13:53] LABS: TOTAL 25(OH) VITAMIN D 17.5 NG/ML (30.0-100.0)
== END ==
PROVIDERS: ATTEND Internal Medicine
DX: G35 Multiple sclerosis (principal); Z79.899 Other long term (current) drug therapy

== ENCOUNTER → 2022-05-02 | Outpatient (REF) | payer MEDICARE, MEDICAID ==
[2022-05-02 10:36] LABS: BASO % 0.5 % (0.0-1.0); EOS # 0.1 10^3/uL (0.0-0.5); EOS % 2.1 % (0.0-3.0); HEMATOCRIT 40.1 % (36.0-47.0); HEMOGLOBIN 13.4 g/dl (12.0-15.5); LYMPH # 0.2 10^3/uL (1.5-5.0); LYMPH % 6.2 % (24.0-44.0); MEAN CORPUSCULAR HEMOGLOBIN 32.2 pg (27.0-33.0); MEAN CORPUSCULAR HGB CONC 33.4 g/dl (32.0-36.5); MEAN CORPUSCULAR VOLUME 96.4 fl (80.0-96.0); MONO # 0.5 10^3/uL (0.0-0.8); MONO % 12.1 % (2.0-8.0); NEUTROPHILS # 3.1 10^3/uL (1.5-8.5); NEUTROPHILS % 78.8 % (36.0-66.0); PLATELET COUNT, AUTOMATED 279 10^3/uL (150-450); RED BLOOD COUNT 4.16 10^6/uL (4.00-5.40); WHITE BLOOD COUNT 3.9 10^3/uL (4.0-10.0)
[2022-05-02 11:48] LABS: ALBUMIN 3.2 GM/DL (3.2-5.2); ALT/SGPT 36 U/L (12-78); BILIRUBIN,TOTAL 0.5 MG/DL (0.2-1.0); BLOOD UREA NITROGEN 10 MG/DL (7-18); CALCIUM LEVEL 9.5 MG/DL (8.8-10.2); CARBON DIOXIDE LEVEL 31 MEQ/L (21-32); CHLORIDE LEVEL 106 MEQ/L (98-107); CREATININE FOR GFR 0.59 MG/DL (0.55-1.30); GLOMERULAR FILTRATION RATE > 60.0 (>45); GLUCOSE, FASTING 126 MG/DL (70-100); POTASSIUM SERUM 4.2 MEQ/L (3.5-5.1); SODIUM LEVEL 140 MEQ/L (136-145); TOTAL PROTEIN 5.9 GM/DL (6.4-8.2)
== END ==
PROVIDERS: ATTEND Internal Medicine
DX: E78.5 Hyperlipidemia, unspecified (principal)

== ENCOUNTER → 2022-05-25 | Outpatient (CLI) | payer MEDICARE, MEDICAID | LOC: M WHC 11:53 | PROVIDERS: ATTEND Nurse Practitioner Family | DX: Z12.31 Encounter for screening mammogram for malignant neoplasm of breast (principal) ==

== ENCOUNTER → 2022-10-31 | Outpatient (REF) | payer MEDICARE, MEDICAID ==
[2022-10-31 11:22] LABS: BASO % 0.5 % (0.0-1.0); EOS # 0.1 10^3/uL (0.0-0.5); EOS % 2.1 % (0.0-3.0); HEMATOCRIT 40.6 % (36.0-47.0); HEMOGLOBIN 13.2 g/dl (12.0-15.5); LYMPH # 0.3 10^3/uL (1.5-5.0); LYMPH % 6.8 % (24.0-44.0); MEAN CORPUSCULAR HGB CONC 32.5 g/dl (32.0-36.5); MEAN CORPUSCULAR VOLUME 98.3 fl (80.0-96.0); MONO # 0.5 10^3/uL (0.0-0.8); MONO % 13.3 % (2.0-8.0); PLATELET COUNT, AUTOMATED 288 10^3/uL (150-450); RED BLOOD COUNT 4.13 10^6/uL (4.00-5.40); WHITE BLOOD COUNT 3.8 10^3/uL (4.0-10.0)
[2022-10-31 11:52] LABS: ALBUMIN 3.5 G/DL (3.2-5.2); ALKALINE PHOSPHATASE 79 U/L (46-116); ALT/SGPT 42 U/L (7.0-40); AST/SGOT 30 U/L (<34); BILIRUBIN,TOTAL 0.5 MG/DL (0.3-1.2); BLOOD UREA NITROGEN 10 MG/DL (9-23); CALCIUM LEVEL 9.3 MG/DL (8.3-10.6); CARBON DIOXIDE LEVEL 28 MMOL/L (20-31); CHLORIDE LEVEL 105 MMOL/L (98-107); CREATININE FOR GFR 0.49 MG/DL (0.55-1.30); GLOMERULAR FILTRATION RATE > 60.0 (>45); GLUCOSE, FASTING 110 MG/DL (74-106); POTASSIUM SERUM 3.8 MMOL/L (3.5-5.1); SODIUM LEVEL 142 MMOL/L (136-145); TOTAL PROTEIN 5.7 G/DL (5.7-8.2)
== END ==
PROVIDERS: ATTEND Nurse Practitioner Family
DX: G35 Multiple sclerosis (principal)

== ENCOUNTER → 2022-11-21 | Outpatient (CLI) | payer MEDICARE, MEDICAID | LOC: M WHC 09:16 | PROVIDERS: ATTEND Nurse Practitioner Family | DX: M81.0 Age-related osteoporosis without current pathological fracture (principal) ==

== ENCOUNTER → 2023-01-02 | Outpatient (REF) | payer MEDICARE, MEDICAID | PROVIDERS: ATTEND Nurse Practitioner Family | DX: E55.9 Vitamin D deficiency, unspecified (principal); Z79.899 Other long term (current) drug therapy ==

== ENCOUNTER → 2023-01-16 | Outpatient (REF) | payer MEDICARE, MEDICAID | PROVIDERS: ATTEND Nurse Practitioner Family | DX: J02.9 Acute pharyngitis, unspecified (principal) ==

== ENCOUNTER → 2023-01-21 | Outpatient (REF) | payer MEDICARE, MEDICAID | PROVIDERS: ATTEND Internal Medicine | DX: J06.9 Acute upper respiratory infection, unspecified (principal); I70.0 Atherosclerosis of aorta ==

== ENCOUNTER → 2023-03-22 | Outpatient (REF) | payer MEDICARE, MEDICAID ==
[~2023-03-22] MED LIST changes: +SENN-111 PO; -SENN18TA PO
== END ==
PROVIDERS: ATTEND Nurse Practitioner Family
DX: Z12.11 Encounter for screening for malignant neoplasm of colon (principal)

== ENCOUNTER → 2023-04-08 | Outpatient (REF) | payer MEDICARE, MEDICAID | PROVIDERS: ATTEND Internal Medicine | DX: Z12.11 Encounter for screening for malignant neoplasm of colon (principal) ==

== ENCOUNTER → 2023-05-03 | Outpatient (REF) | payer MEDICARE, MEDICAID ==
[~2023-05-03] MED LIST changes: -GABA-283 PO; +GABA-284 PO
[2023-05-03 07:55] LABS: BASO % 0.6 % (0.0-1.0); EOS # 0.1 10^3/uL (0.0-0.5); EOS % 2.6 % (0.0-3.0); HEMATOCRIT 36.6 % (36.0-47.0); LYMPH # 0.2 10^3/uL (1.5-5.0); LYMPH % 7.7 % (24.0-44.0); MEAN CORPUSCULAR HEMOGLOBIN 32.1 pg (27.0-33.0); MEAN CORPUSCULAR HGB CONC 32.8 g/dl (32.0-36.5); MEAN CORPUSCULAR VOLUME 97.9 fl (80.0-96.0); MONO # 0.6 10^3/uL (0.0-0.8); MONO % 17.6 % (2.0-8.0); NEUTROPHILS # 2.2 10^3/uL (1.5-8.5); NEUTROPHILS % 71.2 % (36.0-66.0); PLATELET COUNT, AUTOMATED 241 10^3/uL (150-450); RED BLOOD COUNT 3.74 10^6/uL (4.00-5.40); WHITE BLOOD COUNT 3.1 10^3/uL (4.0-10.0)
[2023-05-03 08:08] LABS: ALBUMIN 3.1 G/DL (3.2-5.2); ALKALINE PHOSPHATASE 52 U/L (46-116); ALT/SGPT 29 U/L (7.0-40); AST/SGOT 20 U/L (<34); BILIRUBIN,TOTAL 0.4 MG/DL (0.3-1.2); BLOOD UREA NITROGEN 12 MG/DL (9-23); CALCIUM LEVEL 8.8 MG/DL (8.3-10.6); CARBON DIOXIDE LEVEL 30 MMOL/L (20-31); CHLORIDE LEVEL 109 MMOL/L (98-107); CHOLESTEROL LEVEL 220 MG/DL (<200); CHOLESTEROL RISK RATIO 4.69 (<5); CREATININE FOR GFR 0.42 MG/DL (0.55-1.30); GLOMERULAR FILTRATION RATE > 60.0 (>45); GLUCOSE, FASTING 87 MG/DL (74-106); HDL CHOLESTEROL 46.9 MG/DL (>40); LDL CHOLESTEROL 147.7 MG/DL (<100); NON-HDL-C 173.1 MG/DL; POTASSIUM SERUM 3.9 MMOL/L (3.5-5.1); SODIUM LEVEL 141 MMOL/L (136-145); TOTAL PROTEIN 5.3 G/DL (5.7-8.2); TRIGLYCERIDES LEVEL 127 MG/DL (<150)
[2023-05-03 10:55] LABS: TOTAL 25(OH) VITAMIN D 30.5 NG/ML (20.0-100.0)
== END ==
PROVIDERS: ATTEND Internal Medicine
DX: G35 Multiple sclerosis (principal); Z79.899 Other long term (current) drug therapy

== ENCOUNTER → 2023-05-06 | Outpatient (REF) | payer MEDICARE, MEDICAID ==
[2023-05-06 08:21] LABS: BASO % 1.1 % (0.0-1.0); EOS # 0.1 10^3/uL (0.0-0.5); EOS % 2.9 % (0.0-3.0); HEMATOCRIT 36.9 % (36.0-47.0); HEMOGLOBIN 12.1 g/dl (12.0-15.5); LYMPH # 0.2 10^3/uL (1.5-5.0); LYMPH % 6.5 % (24.0-44.0); MEAN CORPUSCULAR HEMOGLOBIN 32.4 pg (27.0-33.0); MEAN CORPUSCULAR HGB CONC 32.8 g/dl (32.0-36.5); MEAN CORPUSCULAR VOLUME 98.9 fl (80.0-96.0); MONO # 0.5 10^3/uL (0.0-0.8); MONO % 17.4 % (2.0-8.0); NEUTROPHILS % 71.7 % (36.0-66.0); PLATELET COUNT, AUTOMATED 255 10^3/uL (150-450); RED BLOOD COUNT 3.73 10^6/uL (4.00-5.40); WHITE BLOOD COUNT 2.8 10^3/uL (4.0-10.0)
[2023-05-06 08:51] LABS: ALBUMIN 3.1 G/DL (3.2-5.2); BILIRUBIN,DIRECT 0.1 MG/DL (<0.4); BILIRUBIN,TOTAL 0.4 MG/DL (0.3-1.2); IMMUNOGLOBULIN A 163.5 MG/DL (40-350); IMMUNOGLOBULIN M 66.7 MG/DL (50-300); TOTAL PROTEIN 5.4 G/DL (5.7-8.2)
== END ==
PROVIDERS: ATTEND Nurse Practitioner Family
DX: G35 Multiple sclerosis (principal)

== ENCOUNTER → 2023-09-29 | Outpatient (REF) ==
[2023-09-29 14:04] LABS: EOS % 0.5 % (0.0-3.0); HEMATOCRIT 40.6 % (36.0-47.0); HEMOGLOBIN 13.5 g/dl (12.0-15.5); LYMPH # 0.2 10^3/uL (1.5-5.0); LYMPH % 5.1 % (24.0-44.0); MEAN CORPUSCULAR HEMOGLOBIN 32.3 pg (27.0-33.0); MEAN CORPUSCULAR HGB CONC 33.3 g/dl (32.0-36.5); MEAN CORPUSCULAR VOLUME 97.1 fl (80.0-96.0); MONO # 0.6 10^3/uL (0.0-0.8); MONO % 16.4 % (2.0-8.0); NEUTROPHILS % 77.7 % (36.0-66.0); PLATELET COUNT, AUTOMATED 234 10^3/uL (150-450); RED BLOOD COUNT 4.18 10^6/uL (4.00-5.40); WHITE BLOOD COUNT 3.9 10^3/uL (4.0-10.0)
[2023-09-29 14:35] LABS: ALBUMIN 3.6 G/DL (3.2-5.2); ALKALINE PHOSPHATASE 75 U/L (46-116); ALT/SGPT 56 U/L (7.0-40); AST/SGOT 47 U/L (<34); BILIRUBIN,TOTAL 0.3 MG/DL (0.3-1.2); BLOOD UREA NITROGEN 10 MG/DL (9-23); CALCIUM LEVEL 8.9 MG/DL (8.3-10.6); CARBON DIOXIDE LEVEL 24 MMOL/L (20-31); CHLORIDE LEVEL 105 MMOL/L (98-107); CREATININE FOR GFR 0.41 MG/DL (0.55-1.30); GLOMERULAR FILTRATION RATE > 60.0 (>45); GLUCOSE, FASTING 127 MG/DL (74-106); POTASSIUM SERUM 4.2 MMOL/L (3.5-5.1); SODIUM LEVEL 139 MMOL/L (136-145); TOTAL PROTEIN 5.9 G/DL (5.7-8.2)
[2023-09-29 14:38] LABS: RSV AMPLIFICATION NEGATIVE (NEGATIVE)
== END ==
LOC: M LAB 13:37
DX: R05.9 Cough, unspecified (principal); R50.9 Fever, unspecified

== ENCOUNTER → 2023-09-30 | Outpatient (REF) | payer MEDICARE, MEDICAID | PROVIDERS: ATTEND Internal Medicine | DX: R05.9 Cough, unspecified (principal); R50.9 Fever, unspecified ==

== ENCOUNTER → 2023-11-04 | Outpatient (REF) | payer MEDICARE, MEDICAID ==
[2023-11-04 11:35] LABS: BASO % 0.9 % (0.0-1.0); EOS # 0.1 10^3/uL (0.0-0.5); EOS % 2.6 % (0.0-3.0); HEMATOCRIT 38.7 % (36.0-47.0); HEMOGLOBIN 12.6 g/dl (12.0-15.5); LYMPH # 0.2 10^3/uL (1.5-5.0); LYMPH % 5.5 % (24.0-44.0); MEAN CORPUSCULAR HEMOGLOBIN 32.6 pg (27.0-33.0); MEAN CORPUSCULAR HGB CONC 32.6 g/dl (32.0-36.5); MONO # 0.5 10^3/uL (0.0-0.8); MONO % 14.5 % (2.0-8.0); NEUTROPHILS # 2.6 10^3/uL (1.5-8.5); NEUTROPHILS % 76.2 % (36.0-66.0); PLATELET COUNT, AUTOMATED 275 10^3/uL (150-450); RED BLOOD COUNT 3.87 10^6/uL (4.00-5.40); WHITE BLOOD COUNT 3.5 10^3/uL (4.0-10.0)
[2023-11-04 12:01] LABS: TOTAL 25(OH) VITAMIN D 38.3 NG/ML (20.0-100.0)
[2023-11-04 12:03] LABS: ALBUMIN 3.2 G/DL (3.2-5.2); ALKALINE PHOSPHATASE 62 U/L (46-116); ALT/SGPT 21 U/L (7.0-40); AST/SGOT 12 U/L (<34); BILIRUBIN,TOTAL 0.4 MG/DL (0.3-1.2); BLOOD UREA NITROGEN 13 MG/DL (9-23); CALCIUM LEVEL 8.9 MG/DL (8.3-10.6); CARBON DIOXIDE LEVEL 31 MMOL/L (20-31); CHLORIDE LEVEL 107 MMOL/L (98-107); CREATININE FOR GFR 0.49 MG/DL (0.55-1.30); GLOMERULAR FILTRATION RATE > 60.0 (>45); GLUCOSE, FASTING 125 MG/DL (74-106); POTASSIUM SERUM 4.2 MMOL/L (3.5-5.1); SODIUM LEVEL 143 MMOL/L (136-145); TOTAL PROTEIN 5.7 G/DL (5.7-8.2)
== END ==
PROVIDERS: ATTEND Internal Medicine
DX: G35 Multiple sclerosis (principal); Z79.899 Other long term (current) drug therapy

== ENCOUNTER → 2024-04-20 | Outpatient (REF) | payer MEDICARE, MEDICAID ==
[~2024-04-20] MED LIST changes: -MIRA1POW3 PO; +MIRA33506 PO
== END ==
PROVIDERS: ATTEND Nurse Practitioner Adult Health
DX: G35 Multiple sclerosis (principal); Z53.8 Procedure and treatment not carried out for other reasons

== ENCOUNTER → 2024-04-22 | Outpatient (REF) | payer MEDICARE, MEDICAID ==
[2024-04-22 11:28] LABS: BASO % 0.5 % (0.0-1.0); HEMATOCRIT 42.6 % (36.0-47.0); HEMOGLOBIN 13.5 g/dl (12.0-15.5); LYMPH # 0.2 10^3/uL (1.5-5.0); LYMPH % 5.9 % (24.0-44.0); MEAN CORPUSCULAR HEMOGLOBIN 31.8 pg (27.0-33.0); MEAN CORPUSCULAR HGB CONC 31.7 g/dl (32.0-36.5); MEAN CORPUSCULAR VOLUME 100.2 fl (80.0-96.0); MONO # 0.4 10^3/uL (0.0-0.8); MONO % 11.3 % (2.0-8.0); NEUTROPHILS # 3.1 10^3/uL (1.5-8.5); NEUTROPHILS % 80.8 % (36.0-66.0); PLATELET COUNT, AUTOMATED 283 10^3/uL (150-450); RED BLOOD COUNT 4.25 10^6/uL (4.00-5.40); WHITE BLOOD COUNT 3.9 10^3/uL (4.0-10.0)
[2024-04-22 12:00] LABS: ALBUMIN 3.6 G/DL (3.2-5.2); BILIRUBIN,DIRECT 0.1 MG/DL (<0.4); BILIRUBIN,TOTAL 0.5 MG/DL (0.3-1.2); TOTAL PROTEIN 6.1 G/DL (5.7-8.2)
== END ==
PROVIDERS: ATTEND Nurse Practitioner Adult Health
DX: G35 Multiple sclerosis (principal); Z79.899 Other long term (current) drug therapy

== ENCOUNTER → 2024-04-27 | Outpatient (REF) | payer MEDICARE, MEDICAID ==
[2024-04-27 09:13] LABS: BASO % 0.5 % (0.0-1.0); EOS # 0.1 10^3/uL (0.0-0.5); EOS % 1.6 % (0.0-3.0); HEMOGLOBIN 13.1 g/dl (12.0-15.5); LYMPH # 0.2 10^3/uL (1.5-5.0); LYMPH % 5.5 % (24.0-44.0); MEAN CORPUSCULAR HEMOGLOBIN 32.6 pg (27.0-33.0); MEAN CORPUSCULAR HGB CONC 32.8 g/dl (32.0-36.5); MEAN CORPUSCULAR VOLUME 99.5 fl (80.0-96.0); MONO # 0.5 10^3/uL (0.0-0.8); MONO % 12.6 % (2.0-8.0); NEUTROPHILS # 2.9 10^3/uL (1.5-8.5); NEUTROPHILS % 79.5 % (36.0-66.0); PLATELET COUNT, AUTOMATED 255 10^3/uL (150-450); RED BLOOD COUNT 4.02 10^6/uL (4.00-5.40); WHITE BLOOD COUNT 3.7 10^3/uL (4.0-10.0)
[2024-04-27 09:31] LABS: ALBUMIN 3.5 G/DL (3.2-5.2); BILIRUBIN,DIRECT 0.1 MG/DL (<0.4); BILIRUBIN,TOTAL 0.5 MG/DL (0.3-1.2); TOTAL PROTEIN 5.8 G/DL (5.7-8.2)
[2024-04-27 09:32] LABS: IMMUNOGLOBULIN A 184.1 MG/DL (40-350)
[2024-04-27 09:33] LABS: TOTAL 25(OH) VITAMIN D 44.7 NG/ML (20.0-100.0)
== END ==
PROVIDERS: ATTEND Nurse Practitioner Family
DX: G35 Multiple sclerosis (principal); Z79.899 Other long term (current) drug therapy

== ENCOUNTER → 2024-05-06 | Outpatient (REF) | payer MEDICARE, MEDICAID ==
[2024-05-06 09:11] LABS: BASO % 0.9 % (0.0-1.0); EOS # 0.1 10^3/uL (0.0-0.5); EOS % 2.1 % (0.0-3.0); HEMATOCRIT 39.9 % (36.0-47.0); HEMOGLOBIN 13.2 g/dl (12.0-15.5); LYMPH # 0.2 10^3/uL (1.5-5.0); LYMPH % 4.8 % (24.0-44.0); MEAN CORPUSCULAR HEMOGLOBIN 32.1 pg (27.0-33.0); MEAN CORPUSCULAR HGB CONC 33.1 g/dl (32.0-36.5); MEAN CORPUSCULAR VOLUME 97.1 fl (80.0-96.0); MONO # 0.5 10^3/uL (0.0-0.8); NEUTROPHILS # 2.6 10^3/uL (1.5-8.5); NEUTROPHILS % 76.9 % (36.0-66.0); PLATELET COUNT, AUTOMATED 283 10^3/uL (150-450); RED BLOOD COUNT 4.11 10^6/uL (4.00-5.40); WHITE BLOOD COUNT 3.3 10^3/uL (4.0-10.0)
[2024-05-06 09:38] LABS: ALBUMIN 3.5 G/DL (3.2-5.2); ALKALINE PHOSPHATASE 63 U/L (46-116); ALT/SGPT 34 U/L (7.0-40); AST/SGOT 19 U/L (<34); BILIRUBIN,TOTAL 0.5 MG/DL (0.3-1.2); BLOOD UREA NITROGEN 11 MG/DL (9-23); CALCIUM LEVEL 9.6 MG/DL (8.3-10.6); CARBON DIOXIDE LEVEL 29 MMOL/L (20-31); CHLORIDE LEVEL 108 MMOL/L (98-107); CREATININE FOR GFR 0.43 MG/DL (0.55-1.30); GLOMERULAR FILTRATION RATE > 60.0 (>45); GLUCOSE, FASTING 83 MG/DL (74-106); POTASSIUM SERUM 3.9 MMOL/L (3.5-5.1); SODIUM LEVEL 142 MMOL/L (136-145)
== END ==
PROVIDERS: ATTEND Internal Medicine
DX: G35 Multiple sclerosis (principal)

== ENCOUNTER → 2024-06-20 | Outpatient (REF) | payer MEDICARE, MEDICAID | PROVIDERS: ATTEND Internal Medicine | DX: Z13.818 Encounter for screening for other digestive system disorders (principal) ==

== ENCOUNTER → 2024-06-22 | Outpatient (REF) | payer MEDICARE, MEDICAID | PROVIDERS: ATTEND Nurse Practitioner Adult Health | DX: Z13.818 Encounter for screening for other digestive system disorders (principal) ==

== ENCOUNTER → 2024-06-26 | Outpatient (REF) | payer MEDICARE, MEDICAID ==
[~2024-06-26] MED LIST changes: +GABA-1172 PO; -GABA-282 PO; -SENN-111 PO; +SENN-165 PO
== END ==
PROVIDERS: ATTEND Internal Medicine
DX: Z13.818 Encounter for screening for other digestive system disorders (principal)

== ENCOUNTER → 2024-07-01 | Outpatient (REF) | payer MEDICARE, MEDICAID ==
[2024-07-01 08:53] LABS: HEMATOCRIT 40.1 % (36.0-47.0); HEMOGLOBIN 13.1 g/dl (12.0-15.5); MEAN CORPUSCULAR HEMOGLOBIN 31.9 pg (27.0-33.0); MEAN CORPUSCULAR HGB CONC 32.7 g/dl (32.0-36.5); MEAN CORPUSCULAR VOLUME 97.6 fl (80.0-96.0); PLATELET COUNT, AUTOMATED 274 10^3/uL (150-450); RED BLOOD COUNT 4.11 10^6/uL (4.00-5.40); WHITE BLOOD COUNT 3.4 10^3/uL (4.0-10.0)
[2024-07-01 09:19] LABS: BLOOD UREA NITROGEN 10 MG/DL (9-23); CALCIUM LEVEL 9.9 MG/DL (8.3-10.6); CARBON DIOXIDE LEVEL 30 MMOL/L (20-31); CHLORIDE LEVEL 109 MMOL/L (98-107); CREATININE FOR GFR 0.47 MG/DL (0.55-1.30); GLOMERULAR FILTRATION RATE > 60.0 (>45); GLUCOSE, FASTING 94 MG/DL (74-106); SODIUM LEVEL 143 MMOL/L (136-145)
== END ==
PROVIDERS: ATTEND Nurse Practitioner Adult Health
DX: Z01.818 Encounter for other preprocedural examination (principal); Z79.899 Other long term (current) drug therapy

== ENCOUNTER → 2024-07-14 | Outpatient (CLI) | payer MEDICARE, MEDICAID | LOC: M EKG 13:02 | PROVIDERS: ATTEND Nurse Practitioner Adult Health | DX: Z01.818 Encounter for other preprocedural examination (principal); R94.31 Abnormal electrocardiogram [ECG] [EKG] ==

== ENCOUNTER → 2024-09-04 | Outpatient (CLI) | payer MEDICARE, MEDICAID | LOC: M WHC 10:39 | PROVIDERS: ATTEND Nurse Practitioner Adult Health | DX: Z12.31 Encounter for screening mammogram for malignant neoplasm of breast (principal); R92.323 Mammographic fibroglandular density, bilateral breasts ==

== ENCOUNTER → 2024-11-02 | Outpatient (REF) | payer MEDICARE, MEDICAID ==
[2024-11-02 08:05] LABS: BASO % 0.9 % (0.0-1.0); EOS # 0.1 10^3/uL (0.0-0.5); EOS % 2.1 % (0.0-3.0); HEMATOCRIT 38.6 % (36.0-47.0); HEMOGLOBIN 12.6 g/dl (12.0-15.5); LYMPH # 0.2 10^3/uL (1.5-5.0); MEAN CORPUSCULAR HEMOGLOBIN 32.6 pg (27.0-33.0); MEAN CORPUSCULAR HGB CONC 32.6 g/dl (32.0-36.5); MEAN CORPUSCULAR VOLUME 99.7 fl (80.0-96.0); MONO # 0.6 10^3/uL (0.0-0.8); MONO % 16.1 % (2.0-8.0); NEUTROPHILS # 2.5 10^3/uL (1.5-8.5); NEUTROPHILS % 73.6 % (36.0-66.0); PLATELET COUNT, AUTOMATED 271 10^3/uL (150-450); RED BLOOD COUNT 3.87 10^6/uL (4.00-5.40); WHITE BLOOD COUNT 3.4 10^3/uL (4.0-10.0)
[2024-11-02 08:34] LABS: ALBUMIN 3.3 G/DL (3.2-5.2); ALKALINE PHOSPHATASE 57 U/L (35-104); ALT/SGPT 23 U/L (7.0-40); AST/SGOT 15 U/L (<34); BILIRUBIN,TOTAL 0.4 MG/DL (0.3-1.2); BLOOD UREA NITROGEN 10 MG/DL (9-23); CALCIUM LEVEL 9.2 MG/DL (8.3-10.6); CARBON DIOXIDE LEVEL 29 MMOL/L (20-31); CHLORIDE LEVEL 108 MMOL/L (98-107); CREATININE FOR GFR 0.55 MG/DL (0.55-1.30); GLOMERULAR FILTRATION RATE > 60.0 (>45); GLUCOSE, FASTING 86 MG/DL (74-106); POTASSIUM SERUM 4.3 MMOL/L (3.5-5.1); SODIUM LEVEL 146 MMOL/L (136-145); TOTAL PROTEIN 5.7 G/DL (5.7-8.2)
[2024-11-02 08:35] LABS: TOTAL 25(OH) VITAMIN D 32.4 NG/ML (20.0-100.0)
== END ==
PROVIDERS: ATTEND Internal Medicine
DX: G35 Multiple sclerosis (principal); Z79.899 Other long term (current) drug therapy

== ENCOUNTER → 2025-05-05 | Outpatient (REF) | payer MEDICARE, MEDICAID ==
[2025-05-05 12:13] LABS: BASO # 0.0 10^3/uL (0.0-0.2); BASO % 0.7 % (0.0-1.0); EOS # 0.1 10^3/uL (0.0-0.5); EOS % 2.0 % (0.0-3.0); LYMPH # 0.2 10^3/uL (1.5-5.0); LYMPH % 5.2 % (24.0-44.0); MONO # 0.5 10^3/uL (0.0-0.8); MONO % 10.9 % (2.0-8.0); NEUTROPHILS # 3.6 10^3/uL (1.5-8.5); NEUTROPHILS % 81.0 % (36.0-66.0); PLATELET COUNT, AUTOMATED 321 10^3/uL (150-450)
[2025-05-05 12:45] LABS: ALT/SGPT 98 U/L (7.0-40); AST/SGOT 21 U/L (<34); CALCIUM LEVEL 9.4 MG/DL (8.3-10.6); CARBON DIOXIDE LEVEL 31 MMOL/L (20-31); CHLORIDE LEVEL 104 MMOL/L (98-107); CREATININE FOR GFR 0.54 MG/DL (0.55-1.30); GLOMERULAR FILTRATION RATE > 90.0 (>45); POTASSIUM SERUM 4.3 MMOL/L (3.5-5.1); SODIUM LEVEL 145 MMOL/L (136-145)
== END ==
PROVIDERS: ATTEND Nurse Practitioner Family
DX: G35 Multiple sclerosis (principal)

== ENCOUNTER → 2025-06-28 | Outpatient (REF) | payer MEDICARE, MEDICAID ==
[2025-06-28 11:33] LABS: ALT/SGPT 81.0 U/L (7.0-40); AST/SGOT 20.0 U/L (<34)
== END ==
PROVIDERS: ATTEND Nurse Practitioner Family
DX: G35.D Multiple sclerosis, unspecified (principal)

== ENCOUNTER → 2025-07-19 | Outpatient (REF) | payer MEDICARE, MEDICAID | PROVIDERS: ATTEND Internal Medicine | DX: M25.571 Pain in right ankle and joints of right foot (principal); M79.89 Other specified soft tissue disorders ==

== ENCOUNTER → 2025-07-26 | Outpatient (REF) | payer MEDICARE, MEDICAID | PROVIDERS: ATTEND Internal Medicine | DX: M25.571 Pain in right ankle and joints of right foot (principal); S82.832A Other fracture of upper and lower end of left fibula, initial encounter for closed fracture; M79.89 Other specified soft tissue disorders ==

== ENCOUNTER → 2025-07-30 | Outpatient (CLI) | payer MEDICARE, MEDICAID | LOC: M SOG 13:23 | PROVIDERS: ATTEND Physician Assistant | DX: M25.571 Pain in right ankle and joints of right foot (principal); Z53.9 Procedure and treatment not carried out, unspecified reason ==

== ENCOUNTER → 2025-08-31 | Outpatient (CLI) | payer MEDICARE, MEDICAID | LOC: M SOG 07:34 | PROVIDERS: ATTEND Physician Assistant | DX: Z53.9 Procedure and treatment not carried out, unspecified reason (principal) ==

== ENCOUNTER → 2025-09-01 | Outpatient (REF) | PROVIDERS: ATTEND Physician Assistant | DX: S82.831D Other fracture of upper and lower end of right fibula, subsequent encounter for closed fracture with routine healing (principal); M79.89 Other specified soft tissue disorders ==

== ENCOUNTER → 2025-09-01 | Outpatient (REF) | payer MEDICARE, MEDICAID ==
[2025-09-01 13:56] LABS: BASO # 0.1 10^3/uL (0.0-0.2); BASO % 1.1 % (0.0-1.0); EOS # 0.2 10^3/uL (0.0-0.5); EOS % 3.0 % (0.0-3.0); LYMPH # 0.3 10^3/uL (1.5-5.0); LYMPH % 6.0 % (24.0-44.0); MONO # 0.6 10^3/uL (0.0-0.8); MONO % 10.4 % (2.0-8.0); NEUTROPHILS # 4.3 10^3/uL (1.5-8.5); NEUTROPHILS % 79.1 % (36.0-66.0); PLATELET COUNT, AUTOMATED 326 10^3/uL (150-450)
[2025-09-01 14:12] LABS: ALT/SGPT 198.0 U/L (7.0-40); AST/SGOT 100.0 U/L (<34)
[2025-09-01 14:17] LABS: TOTAL 25(OH) VITAMIN D 47.0 NG/ML (20.0-100.0)
== END ==
PROVIDERS: ATTEND Nurse Practitioner Family
DX: G35.D Multiple sclerosis, unspecified (principal); Z79.899 Other long term (current) drug therapy

== ENCOUNTER → 2025-09-01 | Outpatient (REF) | payer MEDICARE, MEDICAID | LOC: M LAB REF 13:17 | PROVIDERS: ATTEND Nurse Practitioner Family | DX: G35.C0 Secondary progressive multiple sclerosis, unspecified (principal) ==